=== PATIENT | male | born 1945 | race Caucasian/White ===

== ENCOUNTER 2022-02-03 01:32 | Inpatient (IN) ==
--- NOTE | 2022-02-03 01:41 | Emergency Department Note ---
History of Present Illness General Chief complaint: Hip Pain Stated complaint: FALL W/ HIP PAIN Time Seen by Provider: 02/03/22 01:33 History of Present Illness This 76-year-old presents to the ER complaining of right hip pain after falling in the shower on accident Location: Right hip Quality: Painful Severity: Moderate Duration: Tonight Timing: Tonight Context: Patient was concerned and came in Modifying factors: better with rest; worse with movement Patient denies chest pain, dyspnea, back pain, abdominal pain, numbness, tingling, localized weakness, head injury, neck pain, prior fracture to this area. Home Medications Medication Instructions Recorded Confirmed Type aspirin 81 mg tablet,delayed 81 mg PO DAILY 08/07/19 02/03/22 History release atorvastatin 20 mg tablet 20 mg PO DAILY 08/07/19 02/03/22 History canagliflozin 300 mg tablet 300 mg PO DAILY 08/07/19 02/03/22 History (Invokana) docusate sodium 100 mg capsule 100 mg PO BID 08/07/19 02/03/22 History (Stool Softener) lisinopril 20 2 tab PO DAILY 08/07/19 02/03/22 History mg-hydrochlorothiazide 25 mg tablet metformin 1,000 mg tablet 1,000 mg PO BID 08/07/19 02/03/22 History multivitamin 1 tab PO DAILY 08/07/19 02/03/22 History omega 4-ebx-dcn-fish oil 1,000 mg 2 cap PO DAILY 08/07/19 02/03/22 History (120 mg-180 mg) capsule (Fish Oil) digoxin 250 mcg (0.25 mg) tablet 250 mcg PO DAILY 02/03/22 02/03/22 History glipizide 10 mg tablet, extended 10 mg PO AMHS 02/03/22 02/03/22 History release 24 hr Allergies Allergy/AdvReac Type Severity Reaction Status Date / Time No Known Allergies Allergy Unknown Verified 02/03/22 02:00 Past Med/Surg History Medical History (Updated 02/03/22 @ 02:53 by Ashlyn Martin PA-C) Diabetes Heart disease HTN (hypertension) Surgical History No pertinent past surgical history Family History Other Cancer Lung disease Social History Smoking Status: Never smoker Preferred Language: Korean Feels Safe at Home: Yes Review of Systems A total of 10 systems reviewed and were otherwise negative Physical Exam Vital Signs Vital Signs - 24 hr 02/03/22 01:38 Temperature 36.5 C Temperature Source Oral Pulse Rate 86 Respiratory Rate 16 Respiratory Effort / Characteristics Non-Labored Spontaneous Respiratory Depth Normal Blood Pressure 173/109 H Blood Pressure Mean 130 Pulse Oximetry 96 Oxygen Delivery Method Room Air Sepsis Recent Fever Within 48 Hours No Sepsis New/Unexplained Change in Mental Status N/A Sepsis Action Taken by Nursing No Action Required PHYSICAL EXAM: VITALS: Vitals are noted on the nurse's note and reviewed by myself. Vital signs stable. GENERAL: Pleasant gentleman, in no acute distress, nondiaphoretic, well- developed well-nourished. SKIN: The skin was without obvious lacerations or abrasions. Capillary reflex less than 2 seconds. HEAD: Normocephalic atraumatic. EARS: External auditory canals clear, EYES: Pupils equal round and reactive to light and accommodation. Conjunctivae without injection, sclerae without icterus. Extraocular movements intact. NOSE: Patent, turbinates without inflammation or discharge. MOUTH: Mucous membranes moist. Pharynx without erythema or exudate. Uvula midline. Airway patent. Tongue does not deviate. NECK: Supple without nuchal rigidity. Cervical spine is nontender. Full range of motion of the neck without tenderness. No JVD. HEART: Regular rate and rhythm LUNGS: Clear to auscultation bilaterally without wheezes, rales or rhonchi. No dullness to percussion. No retractions or accessory muscle use. No chest wall tenderness. ABDOMEN: Positive bowel sounds x 4. Normal tympanic percussion. Soft, nontender, without masses or organomegaly. No guarding or rebound tenderness. MUSCULOSKELETAL: No tenderness of the thoracic or lumbar spine. Right hip tender to palpation. Increased pain with range of motion. Pedal pulses +2 equal and present bilaterally. Full range of motion without tenderness to palpation in all other extremities. NEURO: Patient was alert and oriented to person place and time. Normal sensation to light and sharp touch. No focal neurological deficits. Medical Decision Making Medical Records Attestation: I reviewed the patient's medical records. Home Medications Current Medication List: was personally reviewed by me Laboratory Data Result diagrams: 02/03/22 02:00 02/03/22 02:00 Lab Results 02/03/22 02/03/22 02/03/22 Range/Units 02:00 02:00 02:00 WBC 16.74 H (4.8-10.8) K/ul RBC 4.94 (4.63-6.08) M/uL Hgb 15.0 (14.0-18.0) g/dl Hct 42.9 (40.1-51.0) % MCV 86.8 (80.0-100.0) fL MCH 30.4 (25.0-34.0) pg MCHC 35.0 (32.0-36.0) g/dL RDW Std Deviation 39.8 (36.4-46.3) fL RDW Coeff of Aleyda 12.6 (11.5-14.5) % Plt Count 222 (130-400) K/uL MPV 10.7 (9.4-12.4) fL Immature Gran % (Auto) 0.4 % Neut % (Auto) 86.8 % Lymph % (Auto) 7.0 % [place] % (Auto) 5.4 % Eos % (Auto) 0.2 % Baso % (Auto) 0.2 % Neut # (Auto) 14.52 H (1.4-6.5) K/uL Lymph # (Auto) 1.17 L (1.2-3.4) K/uL [place] # (Auto) 0.91 H (0.24-0.82) K/uL Eos # (Auto) 0.03 (0-0.50) K/uL Baso # (Auto) 0.04 (0-0.2) K/uL Immature Gran # (Auto) 0.07 H (0.00-0.02) K/uL PT 11.1 (9.0-12.0) Seconds INR 1.0 (0.9-1.1) APTT 23.4 (21.0-31.0) Seconds PTT Ratio 0.9 SARS-CoV-2, RNA, NAAT NEGATIVE (NEGATIVE) Imaging Data Attestation: I personally reviewed and interpreted this imaging study as follows: MDM Narrative Prior records reviewed and summarized above. Triage Nursing notes reviewed. Additional history obtained from nursing. The patient's history was concerning for fall with hip pain Differential diagnosis: Etiologies such as fracture, dislocation, neurovascular compromise, compartment syndrome, soft tissue injury, as well as others were entertained. Physical examination: Consistent with an isolated hip injury. ER treatment provided: IV lock Patient has declined pain medicine NPO Bedrest On reassessment the patient felt better. Diagnostics interpreted by me: ECG: Ordered for preop EKG: Normal sinus, normal intervals, no acute ST-T wave changes. Impression normal sinus rhythm interpreted by myself I think arrhythmia is unlikely. EKG shows normal sinus rhythm with no interval abnormalities such as QT prolongation or WPW. There are no findings to suggest Brugada syndrome. Cardiac monitoring in the emergency department reveals no tachycardic or bradycardic dysrhythmia. Hypertrophic cardiomyopathy was considered but there are no clear historical elements pointing toward this. EKG is not suggestive. The QRS voltage is not extremely large and there are no suggestive Q waves. The labs revealed stable H&H Imaging studies: Hip fracture concerning for intertrochanteric hip fracture per my interpretation Chest x-ray with no consolidation, pneumothorax or free air per my interpretation The patient has an isolated hip fracture and will need admission to the hospital. Consultation: A consultation was placed with hospitalist. The case was discussed and diagnostics were reviewed. The patient was evaluated in the ER for further treatment. The chart was completed utilizing [employer] Speech voice recognition software. Grammatical errors, random word insertions, pronoun errors, and incomplete sentences are an occassional consequence of this system due to software limitations, ambient noise, and hardware issues. Any formal questions or concerns about the content, text, or information contained within the body of this dictation should be directly addressed to the physician ambulance assistant for clarification. Impression & Plan Closed fracture of right hip Discharge Plan Visit Data Chief Complaint: Hip Pain Stated Complaint: FALL W/ HIP PAIN ED Provider: Diana Wolf ED Midlevel Provider: Ashlyn Martin Discharge Problem: Closed fracture of right hip Patient Disposition: Admitted As Inpatient Condition: Good Forms Stand Alone Forms: My [facility] Prescriptions Prescriptions: No Action atorvastatin 20 mg tablet 20 mg PO DAILY aspirin 81 mg Tablet,Delayed Release (Dr/Ec) 81 mg PO DAILY metformin 1,000 mg tablet 1,000 mg PO BID lisinopril-hydrochlorothiazide 20-25 mg tablet 2 tab PO DAILY Invokana 300 mg tablet 300 mg PO DAILY multivitamin Tablet 1 tab PO DAILY docusate sodium [Stool Softener] 100 mg Capsule 100 mg PO BID omega 6-qel-xmf-fish oil [Fish Oil] 1,000 mg (120 mg-180 mg) Capsule 2 cap PO DAILY digoxin 250 mcg (0.25 mg) tablet 250 mcg PO DAILY glipizide 10 mg tablet extended release 24hr 10 mg PO AMHS Referrals Referrals: Jesse Real DO [Primary Care Provider] -
[2022-02-03] MEDS ORDERED: lisinopril 40 MG TAB PO STA (02:00)
[2022-02-03 02:09] LABS: Basophils # (auto) 0.04 K/uL (0-0.2); Basophils % (auto) 0.2 %; Eosinophils # (auto) 0.03 K/uL (0-0.50); Eosinophils % (auto) 0.2 %; Hematocrit (blood only) 42.9 % (40.1-51.0); Immature Granulocytes # (auto) 0.07 K/uL (0.00-0.02); Immature Granulocytes % (auto) 0.4 %; Lymphocytes # (auto) 1.17 K/uL (1.2-3.4); Mean Corpuscular Hemoglobin 30.4 pg (25.0-34.0); Mean Corpuscular Volume 86.8 fL (80.0-100.0); Mean Platelet Volume 10.7 fL (9.4-12.4); Monocytes # (auto) 0.91 K/uL (0.24-0.82); Monocytes % (auto) 5.4 %; Neutrophils # (auto) 14.52 K/uL (1.4-6.5); Neutrophils % (auto) 86.8 %; Platelet Count 222 K/uL (130-400); RDW Coefficient of Variation 12.6 % (11.5-14.5); RDW Standard Deviation 39.8 fL (36.4-46.3); Red Blood Count 4.94 M/uL (4.63-6.08); White Blood Count 16.74 K/ul (4.8-10.8)
[2022-02-03 02:24] LABS: Partial Thromboplastin Ratio 0.9; Partial Thromboplastin Time 23.4 Seconds (21.0-31.0); Prothrombin Time 11.1 Seconds (9.0-12.0)
--- NOTE | 2022-02-03 02:36 | History & Physical Report ---
Date of Service February 03, 2022 Assessment & Plan (1) Asymptomatic hypertensive urgency: Plan: Secondary to traumatic right hip fracture secondary to mechanical fall ARF secondary to traumatic rhabdomyolysis PSVT/PAF, patient NSR hx PVD hyperlipidemia on statin Rx DM2 on oral medications, suboptimal control as of recent hemoglobin A1c of 8.14 December 2021 Systolic murmur past tobacco abuse Medical telemetry Analgesia Amlodipine while lisinopril/home diuretic are on hold due to kidney dysfunction monitor creatinine/CPK response to IVF Appropriate to hold statin due to CPK elevation TTE RE systolic murmur Orthopedics consult Re: Right hip fracture [Patient has been seen by [facility] in the past but is requesting admitting service to contact his PCP (Dr. Jesse Real) in a.m. for specialist recommendations.] N.p.o. until patient seen by Orthopedics in a.m. Basal insulin adjusted for n.p.o. status, ISS BG goal 1 10-1 40 DVT prophylaxis with SCDs Re: Possible surgery Full code ADDENDUM : Received call back from patient's PCP (Dr. Real) who is agreeable to [facility] consult for evaluation of patient's right hip fracture. History of Present Illness Chief Complaint: Right hip pain, fall Primary Care Provider: Jesse Real, History obtained from patient and records. Medical history significant for PSVT/PAF, PVD, hypertension, hyperlipidemia, DM2 on oral medications, past tobacco abuse. Last confinement 2008 for lower extremity cellulitis. Patient slipped in the shower last night leading to a fall. Patient felt something pop on his right hip. Achy right hip pain, patient unable to get up. No head trauma, no LOC, no chest pain, no SOB. Patient yelling for for about an hour before family heard him. EMS alerted. Patient brought to the ER for evaluation. 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 Baseline Functionality : Still able to do housework without rest/exertional chest pain, S OB prior to injury Allergies Allergy/AdvReac Type Severity Reaction Status Date / Time No Known Allergies Allergy Unknown Verified 02/03/22 02:00 Home Medications Medication Instructions Recorded Confirmed Type aspirin 81 mg tablet,delayed 81 mg PO DAILY 08/07/19 02/03/22 History release atorvastatin 20 mg tablet 20 mg PO DAILY 08/07/19 02/03/22 History canagliflozin 300 mg tablet 300 mg PO DAILY 08/07/19 02/03/22 History (Invokana) docusate sodium 100 mg capsule 100 mg PO BID 08/07/19 02/03/22 History (Stool Softener) lisinopril 20 2 tab PO DAILY 08/07/19 02/03/22 History mg-hydrochlorothiazide 25 mg tablet metformin 1,000 mg tablet 1,000 mg PO BID 08/07/19 02/03/22 History multivitamin 1 tab PO DAILY 08/07/19 02/03/22 History omega 4-hko-ntn-fish oil 1,000 mg 2 cap PO DAILY 08/07/19 02/03/22 History (120 mg-180 mg) capsule (Fish Oil) digoxin 250 mcg (0.25 mg) tablet 250 mcg PO DAILY 02/03/22 02/03/22 History glipizide 10 mg tablet, extended 10 mg PO AMHS 02/03/22 02/03/22 History release 24 hr Past Med/Surg History Medical History (Updated 02/03/22 @ 05:02 by Charli Bañuelos MD) Diabetes Heart disease HTN (hypertension) Surgical History No pertinent past surgical history Family History Other Cancer Lung disease Social History Smoking Status: Never smoker Hx Alcohol Use: No Hx Substance Use: No Preferred Language: [place]ankan Communication Ability: Effective Duct Layer Helper Required: No Beliefs That Will Affect Care: None Current Living Situation: Spouse Feels Safe at Home: Yes Safety Concerns: Feels Safe At This Time Review of Systems Review of Systems: As per HPI, all other systems reviewed and negative Physical Exam Physical Exam: GENERAL: Comfortable, pleasant, no respiratory distress SKIN: Normal color, warm HEENT: Alopecia, [place] palpebral conjunctivae, no ptosis, dry buccal mucosa NECK : Supple, no tenderness CHEST : CTA, no tenderness HEART : RRR, systolic murmur best heard over left sternal border ABDOMEN: Some distention, nontender EXTREMITIES : No LE swelling, right hip tenderness, no other conspicuous deformities noted NEUROLOGIC : Coherent, no facial asymmetry, gait and stance not assessed Results & Data Results & Data ([facility]) Vital Signs (Past 12 Hours) Vital Signs Temp Pulse Resp BP Pulse Ox O2 Del Method 02/03/22 01:38 36.5 C 86 16 173/109 H 96 Room Air Laboratory Results Laboratory Results WBC 16.74 K/ul (4.8-10.8) H 02/03/22 02:00 RBC 4.94 M/uL (4.63-6.08) 02/03/22 02:00 Hgb 15.0 g/dl (14.0-18.0) 02/03/22 02:00 Hct 42.9 % (40.1-51.0) 02/03/22 02:00 MCV 86.8 fL (80.0-100.0) 02/03/22 02:00 MCH 30.4 pg (25.0-34.0) 02/03/22 02:00 MCHC 35.0 g/dL (32.0-36.0) 02/03/22 02:00 RDW Std Deviation 39.8 fL (36.4-46.3) 02/03/22 02:00 RDW Coeff of Aleyda 12.6 % (11.5-14.5) 02/03/22 02:00 Plt Count 222 K/uL (130-400) 02/03/22 02:00 MPV 10.7 fL (9.4-12.4) 02/03/22 02:00 Immature Gran % (Auto) 0.4 % 02/03/22 02:00 Neut % (Auto) 86.8 % 02/03/22 02:00 Lymph % (Auto) 7.0 % 02/03/22 02:00 [place] % (Auto) 5.4 % 02/03/22 02:00 Eos % (Auto) 0.2 % 02/03/22 02:00 Baso % (Auto) 0.2 % 02/03/22 02:00 Neut # (Auto) 14.52 K/uL (1.4-6.5) H 02/03/22 02:00 Lymph # (Auto) 1.17 K/uL (1.2-3.4) L 02/03/22 02:00 [place] # (Auto) 0.91 K/uL (0.24-0.82) H 02/03/22 02:00 Eos # (Auto) 0.03 K/uL (0-0.50) 02/03/22 02:00 Baso # (Auto) 0.04 K/uL (0-0.2) 02/03/22 02:00 Immature Gran # (Auto) 0.07 K/uL (0.00-0.02) H 02/03/22 02:00 PT 11.1 Seconds (9.0-12.0) 02/03/22 02:00 INR 1.0 (0.9-1.1) 02/03/22 02:00 APTT 23.4 Seconds (21.0-31.0) 02/03/22 02:00 PTT Ratio 0.9 02/03/22 02:00 SARS-CoV-2, RNA, NAAT NEGATIVE (NEGATIVE) 02/03/22 02:00 Laboratory Results WBC 16.74 K/ul (4.8-10.8) H 02/03/22 02:00 RBC 4.94 M/uL (4.63-6.08) 02/03/22 02:00 Hgb 15.0 g/dl (14.0-18.0) 02/03/22 02:00 Hct 42.9 % (40.1-51.0) 02/03/22 02:00 MCV 86.8 fL (80.0-100.0) 02/03/22 02:00 MCH 30.4 pg (25.0-34.0) 02/03/22 02:00 MCHC 35.0 g/dL (32.0-36.0) 02/03/22 02:00 RDW Std Deviation 39.8 fL (36.4-46.3) 02/03/22 02:00 RDW Coeff of Aleyda 12.6 % (11.5-14.5) 02/03/22 02:00 Plt Count 222 K/uL (130-400) 02/03/22 02:00 MPV 10.7 fL (9.4-12.4) 02/03/22 02:00 Immature Gran % (Auto) 0.4 % 02/03/22 02:00 Neut % (Auto) 86.8 % 02/03/22 02:00 Lymph % (Auto) 7.0 % 02/03/22 02:00 [place] % (Auto) 5.4 % 02/03/22 02:00 Eos % (Auto) 0.2 % 02/03/22 02:00 Baso % (Auto) 0.2 % 02/03/22 02:00 Neut # (Auto) 14.52 K/uL (1.4-6.5) H 02/03/22 02:00 Lymph # (Auto) 1.17 K/uL (1.2-3.4) L 02/03/22 02:00 [place] # (Auto) 0.91 K/uL (0.24-0.82) H 02/03/22 02:00 Eos # (Auto) 0.03 K/uL (0-0.50) 02/03/22 02:00 Baso # (Auto) 0.04 K/uL (0-0.2) 02/03/22 02:00 Immature Gran # (Auto) 0.07 K/uL (0.00-0.02) H 02/03/22 02:00 PT 11.1 Seconds (9.0-12.0) 02/03/22 02:00 INR 1.0 (0.9-1.1) 02/03/22 02:00 APTT 23.4 Seconds (21.0-31.0) 02/03/22 02:00 PTT Ratio 0.9 02/03/22 02:00 Sodium 137 mmol/L (136-145) 02/03/22 02:00 Potassium 4.3 mmol/L (3.5-5.1) 02/03/22 02:00 Chloride 101 mmol/L (98-107) 02/03/22 02:00 Carbon Dioxide 24 mmol/L (21-32) 02/03/22 02:00 Anion Gap 12 (3-11) H 02/03/22 02:00 BUN 23 mg/dl (6-23) 02/03/22 02:00 Creatinine 1.48 mg/dl (0.6-1.4) H 02/03/22 02:00 Est Cr Clr Drug Dosing 52.7 ml/min 02/03/22 02:00 Est GFR ( Amer) 52.1 ml/min 02/03/22 02:00 Est GFR (Non-Af Amer) 45.0 ml/min 02/03/22 02:00 BUN/Creatinine Ratio 15.5 (10-20) 02/03/22 02:00 Glucose 312 mg/dl (70-99(Fasting)) H* 02/03/22 02:00 Calcium 9.6 mg/dl (8.5-10.1) 02/03/22 02:00 Magnesium 1.8 mg/dl (1.7-2.4) 02/03/22 02:00 Total Bilirubin 0.6 mg/dl (0.2-1.0) 02/03/22 02:00 AST 26 U/L (13-39) 02/03/22 02:00 ALT 29 U/L (7-52) 02/03/22 02:00 Alkaline Phosphatase 58 U/L (34-104) 02/03/22 02:00 Total Protein 7.2 gm/dl (6.0-8.3) 02/03/22 02:00 Albumin 4.3 gm/dl (3.4-5.0) 02/03/22 02:00 Globulin 2.9 gm/dl (2.5-4.0) 02/03/22 02:00 Albumin/Globulin Ratio 1.5 (0.9-2) 02/03/22 02:00 Urine Color Yellow 02/03/22 04:05 Urine Appearance Clear (Clear) 02/03/22 04:05 Urine pH 5.5 (4.5-7.5) 02/03/22 04:05 Ur Specific [place] 1.022 (1.000-1.030) 02/03/22 04:05 Urine Protein 1+ (Negative) H 02/03/22 04:05 Urine Glucose (UA) 3+ (Negative) H 02/03/22 04:05 Urine Ketones Trace (Negative) H 02/03/22 04:05 Urine Blood 1+ (Negative) H 02/03/22 04:05 Urine Nitrite Negative (Negative) 02/03/22 04:05 Urine Bilirubin Negative (Negative) 02/03/22 04:05 Urine Urobilinogen Negative (Negative) 02/03/22 04:05 Ur Leukocyte Esterase Negative (Negative) 02/03/22 04:05 Urine WBC (Auto) 0 /hpf (0-5) 02/03/22 04:05 Urine RBC (Auto) 0-4 /hpf (0-4) 02/03/22 04:05 U Hyaline Cast (Auto) 1-5 /lpf (0-5) 02/03/22 04:05 U Epithel Cells (Auto) 5-10 /lpf (0-5) H 02/03/22 04:05 Urine Bacteria (Auto) Negative (Negative) 02/03/22 04:05 Digoxin 0.9 ng/ml (0.8-2.0) 02/03/22 02:00 SARS-CoV-2, RNA, NAAT NEGATIVE (NEGATIVE) 02/03/22 02:00 Blood Type A Positive 02/03/22 02:56 Antibody Screen NEGATIVE 02/03/22 02:56 Diagnostic Findings Pelvis x-ray as per my interpretation displaced right femoral neck fracture Chest x-ray as per my interpretation: Elevated left hemidiaphragm, gastric bubble, no infiltrate EKG as per my interpretation : Rate 85, NSR, normal axis, low voltage
[2022-02-03] MEDS ORDERED: MoRPHine SULFATE 4 MG/ML 1 ML CARP\\VIAL IV PRN (02:41)
[2022-02-03] MEDS ORDERED: PROMETHAZINE HCL 12.5 MG in SODIUM CHLORIDE 0.9% 50 ML IV PRN (02:41)
[2022-02-03 03:06] LABS: Albumin Globulin Ratio 1.5 (0.9-2); Albumin Level 4.3 gm/dl (3.4-5.0); BUN Creatinine Ratio 15.5 (10-20); Bilirubin,Total 0.6 mg/dl (0.2-1.0); Calcium 9.6 mg/dl (8.5-10.1); Creatinine Clr Calc Pharmacy 52.7 ml/min; Est GFR (African American) 52.1 ml/min; Globulin 2.9 gm/dl (2.5-4.0); Potassium 4.3 mmol/L (3.5-5.1); Total Protein 7.2 gm/dl (6.0-8.3)
[2022-02-03 03:21] LABS: Magnesium 1.8 mg/dl (1.7-2.4)
[2022-02-03 04:24] LABS: Appearance Urine Clear (Clear); Bacteria Urine Automated Negative (Negative); Bilirubin Urine Negative (Negative); Blood Urine 1+ (Negative); Color Urine Yellow; Glucose Urine UA 3+ (Negative); Ketones Urine Trace (Negative); Leukocyte Esterase Urine Negative (Negative); Nitrite Urine Negative (Negative); Protein Urine 1+ (Negative); RBC Urine Automated 0-4 /hpf (0-4); Specific Gravity Urine 1.022 (1.000-1.030); Urobilinogen Urine Negative (Negative); WBC Urine Automated 0 /hpf (0-5); pH Urine 5.5 (4.5-7.5)
[2022-02-03] MEDS ORDERED: LANTUS PER UNIT CHARGE SQ STA ×2 (04:39→19:12)
[2022-02-03] MEDS ORDERED: SODIUM CHLORIDE 0.9% 1000ML 1,000 ML IV ONE ×2 (04:42→06:32)
[2022-02-03] MEDS ORDERED: CARBOHYDRATES FOR HYPOGLYCEMIA PO PRN (04:58)
[2022-02-03] MEDS ORDERED: GLUCAGON FOR INJ 1 MG VIAL SQ PRN (04:58)
[2022-02-03] MEDS ORDERED: GLUCOSE 10 TAB/TUBE PO PRN (04:58)
[2022-02-03] MEDS ORDERED: GLUCOSE 40% GEL 15 GM TUBE PO PRN (04:58)
[2022-02-03] MEDS ORDERED: DEXTROSE 50% 50 ML SYRINGE IV PRN (04:58)
[2022-02-03] MEDS: INSULIN ASPART PER UNIT SC SCH ×3 (05:29→17:24)
[2022-02-03] MEDS ORDERED: NALOXONE HCL 0.4 MG/1 ML VIAL/CARP IV PRN (06:32)
--- NOTE | 2022-02-03 07:03 | XRay Report ---
XR chest 1V portable CLINICAL HISTORY: Preoperative evaluation. COMPARISON STUDY: Chest radiograph July 01, 2008. FINDINGS: Elevation of the left hemidiaphragm with gastric distention is similar to prior chest radio graph. A few calcified granulomas within the right lung are present. Lung volumes are normal. Lungs a re clear. There is no pneumothorax or pleural effusion. Cardiac size is normal. Mediastinal contours are normal. There is no evidence for pulmonary edema. IMPRESSION: No acute cardiopulmonary findings. No change in appearance of the chest. ACT 112: Negative or not required by law. Electronically signed by: Julio Navas M.D. 02/03/2022 7:02 AM
--- NOTE | 2022-02-03 07:22 | XRay Report ---
XR hip RT 2V w pelvis CLINICAL HISTORY: fall, right hip pain COMPARISON: None FINDINGS: There is an acute displaced right femoral neck fracture. No acute pelvic or left hip fract ure is present. There is moderate osteoarthritis of the hips, greater on the right. Extensive vascula r calcification is incidentally noted. IMPRESSION: Acute displaced right femoral neck fracture. ACT 112: Negative or not required by law. Electronically signed by: Julio Navas M.D. 02/03/2022 7:20 AM
[2022-02-03] MEDS: DOCUSATE SODIUM 100 MG CAP PO SCH ×2 (08:13→20:29)
[2022-02-03] MEDS: MULTIVITAMIN TAB PO SCH (08:13)
[2022-02-03] MEDS: amLODIPine BESYLATE 5 MG TAB PO SCH (08:14)
[2022-02-03] MEDS: ASPIRIN 81 MG ECTAB PO SCH (08:15)
[2022-02-03 08:38] LABS: BUN Creatinine Ratio 19.1 (10-20); Calcium 9.6 mg/dl (8.5-10.1); Creatinine Clr Calc Pharmacy 67.8 ml/min; Est GFR (African American) 70.7 ml/min; Potassium 3.7 mmol/L (3.5-5.1)
[2022-02-03] MEDS ORDERED: ATORVASTATIN 20 MG TAB PO SCH (09:00)
[2022-02-03] MEDS: HYDROmorphone INJ 0.5 MG/0.5 ML SYR IV PRN ×2 (09:55→15:32)
--- NOTE | 2022-02-03 12:19 | Orthopedic Consultation ---
Date of Consultation February 03, 2022 Assessment & Plan (1) Closed fracture of right hip: Displaced right femoral neck fracture. Patient is a community ambulator. He states at times he does use a cane. He denies much in the way of pain in the right hip in the past. Patient will require a bipolar hemiarthroplasty versus total hip arthroplasty to be determined by attending surgeon. Case is in the process of being discussed with [facility] physicians. Continue the patient's n.p.o. status for now in case surgery can be done today. Otherwise patient will be added onto the surgical schedule tomorrow for definitive treatment. I will discuss the case with [facility] service. History of Present Illness Reason for Consultation: Right Hip Fracture Attending Physician: Petey Alcantara MD History of Present Illness Patient is a 76-year-old male with past medical history of PSVT/PAF, PVD, hypertension, hyperlipidemia, DM2 on oral medications, past tobacco abuse. Patient states that he was showering last night. He ended up slipping in the shower and fell onto the shower floor. He had immediate pain in his right hip and groin. He had difficulty trying to ambulate. He states that it took his 45 minutes to hear him yelling for help when she was able to summon her son and also an ambulance. Patient was brought to the emergency room here at [facility]. He was seen by the staff and x-rays were taken. It was found that he had a right displaced femoral neck fracture He was admitted by the [facility] service and we have been asked to take care of his hip fracture. Currently he is awake and alert and in no acute distress. He has no other complaints at this time other than right hip pain. He denies hitting his head during the fall. He denies loss of consciousness. There was no shortness of breath, chest pain, or lightheadedness prior to or after the fall. Allergies Allergy/AdvReac Type Severity Reaction Status Date / Time No Known Allergies Allergy Unknown Verified 02/03/22 02:00 Home Medications Medication Instructions Recorded Confirmed Type aspirin 81 mg tablet,delayed 81 mg PO DAILY 08/07/19 02/03/22 History release atorvastatin 20 mg tablet 20 mg PO DAILY 08/07/19 02/03/22 History canagliflozin 300 mg tablet 300 mg PO DAILY 08/07/19 02/03/22 History (Invokana) docusate sodium 100 mg capsule 100 mg PO BID 08/07/19 02/03/22 History (Stool Softener) lisinopril 20 2 tab PO DAILY 08/07/19 02/03/22 History mg-hydrochlorothiazide 25 mg tablet metformin 1,000 mg tablet 1,000 mg PO BID 08/07/19 02/03/22 History multivitamin 1 tab PO DAILY 08/07/19 02/03/22 History omega 4-bjn-nkw-fish oil 1,000 mg 2 cap PO DAILY 08/07/19 02/03/22 History (120 mg-180 mg) capsule (Fish Oil) digoxin 250 mcg (0.25 mg) tablet 250 mcg PO DAILY 02/03/22 02/03/22 History glipizide 10 mg tablet, extended 10 mg PO AMHS 02/03/22 02/03/22 History release 24 hr Patient History Medical History (Updated 02/03/22 @ 15:55 by Luis Stock MD) Diabetes Heart disease HTN (hypertension) Surgical History No pertinent past surgical history Family History Other Cancer Lung disease Social History Smoking Status: Never smoker Hx Alcohol Use: No Hx Substance Use: No Preferred Language: Mexican Communication Ability: Effective Waste Salvager Required: No Beliefs That Will Affect Care: None Current Living Situation: Spouse Feels Safe at Home: Yes Safety Concerns: Feels Safe At This Time Physical Exam Physical Exam: Patient is a 76-year-old white male who appears his stated age. Alert and oriented x3. No acute distress. Pleasant and cooperative. On examination of his right lower extremity, the extremity is shortened and externally rotated compared to the left. No attempts were made to do range of motion of the right hip Hayden to fracture. Right knee is nontender on palpation and there is no overt swelling. He has good range of motion of his right ankle and toes. Left lower extremity is unaffected at this time and he is able to take the left hip, knee and ankle through range of motion without difficulty. Upper extremities are unaffected at this time and he is nontender at the shoulders, elbows and wrists. Range of motion is within normal limits. He denies any cervical, thoracic, low back pain at this time. There is no gross motor or sensory loss seen at this time. Distal pulses are equal bilaterally of the upper and lower extremities. Results & Data ([facility]) Vital Signs (Past 12 Hours) Vital Signs Temp Pulse Pulse Resp BP BP Pulse Ox 02/03/22 11:15 94 H 20 155/78 H 94 02/03/22 11:15 02/03/22 10:00 95 H 22 02/03/22 09:56 94 H 23 167/73 H 97 02/03/22 09:56 91 H 21 02/03/22 09:00 89 23 02/03/22 08:30 84 24 95 02/03/22 08:17 100 H 20 132/83 100 02/03/22 07:54 95 H 22 96 02/03/22 06:00 101 H 20 172/84 H 94 02/03/22 04:18 96 H 18 155/80 H 96 02/03/22 02:58 92 H 19 168/77 H 95 02/03/22 02:52 36.9 C 19 98 02/03/22 01:38 36.5 C 86 16 173/109 H 96 Pulse Ox O2 Del Method O2 Del Method 02/03/22 11:15 Room Air 02/03/22 11:15 94 Room Air 02/03/22 10:00 02/03/22 09:56 02/03/22 09:56 02/03/22 09:00 02/03/22 08:30 02/03/22 08:17 Room Air 02/03/22 07:54 02/03/22 06:00 02/03/22 04:18 Room Air 02/03/22 02:58 Room Air 02/03/22 02:52 Room Air 02/03/22 01:38 Room Air Diagnostic Findings Patient:VICTOR MANUEL HENDERSON Admit Date:02/03/22 MR#:[id number] Address1:[address] Acct ID:[id number] Address2: Date:1945 [facility] Zip:[place] [address] Age:76 Location:[facility] Sex:M Room/Bed:[facility] 1-12 Att Phy:Raymond Nieto MD Diagnosis:HTN URG, RT HIP FX Rosenda Phy:Jesse Real DO Service Date:02/03/22 Fam Phy: Interpreting Phy:Julio Navas MDAdmit Phy:Charli Bañuelos MD Ordering Phy:Ashlyn Martin PA-C cc: ~ XR hip RT 2V w pelvis CLINICAL HISTORY: fall, right hip pain COMPARISON: None FINDINGS: There is an acute displaced right femoral neck fracture. No acute pelvic or left hip fracture is present. There is moderate osteoarthritis of the hips, greater on the right. Extensive vascular calcification is incidentally noted. IMPRESSION: Acute displaced right femoral neck fracture. (1) Closed fracture of right hip Encounter type: initial encounter Qualified Code(s): S72.001A - Fracture of unspecified part of neck of right femur, initial encounter for closed fracture
--- NOTE | 2022-02-03 13:57 | Hospitalist Progress Note ---
Date of Service February 03, 2022 Assessment & Plan (1) Closed fracture of right hip: Plan 76-year-old male with PMH of PSVT/PAF, PVD, HTN, HLD, DM2, past tobacco abuse who presented to the ED 02/03 after mechanical fall while shower and inflicted right hip injury, denies loss of consciousness/head trauma/chest pain/shortness of breath/palpitations/dizziness/seizure-like activity/involuntary loss of bowel or bladder movement. He is being managed for the following: Hypertensive urgency: Likely secondary to traumatic right hip fracture [see below], amlodipine while lisinopril/home diuretic on hold [see below]. Blood pressure fairly better today. Mechanical fall Right hip fracture Patient came in with fall [see above] Admitting hip x-ray with acute displaced right femoral neck fracture Admitting CXR with no acute findings. Patient denies any stroke/MA/stents, uses cane occasionally, reports being able to climb 2-3 flights of stairs without chest pain or shortness of breath. Class II cardiovascular risk for needed Rt hip repair. Pain control, n.p.o. midnight, likely surgical repair tomorrow. Postoperative PT/OT/DVT prophylaxis per primary team Will continue to monitor. ARF: Admitting creatinine of 1.48, resolved, lisinopril HCTZ was held earlier and amlodipine was initiated, continue with the same for the time being, switch back to lisinopril HCTZ postoperatively. Caution with blood pressure medication during perioperative period. Minimal CPK elevation: 240 at admission, will follow CPK in a.m., statin on hold, continue with same for now, resume once CPK is deemed to be stable or downtrending. Other chronic medical conditions: History of PSVT/PAF, PVD, HLD, DM2, systolic murmur, past tobacco abuse --->> continue with/resume home meds as and when able. Sliding scale insulin. We will continue with telemetry perioperatively. DVT prophylaxis with SCDs Re: Possible surgery Full code Admission and Anticipated Discharge Date Admission Date: February 03, 2022 Subjective Patient seen and examined at bedside as a follow-up of hypertensive urgency and traumatic right hip fracture secondary to mechanical fall. Patient was lying in bed, on room air, NAD, reports pain under control, denies any new acute events overnight, patient was n.p.o. for Ortho to eval and make decision, later on decided to operate on him likely tomorrow, his diet resumed, n.p.o. from midnight until Ortho evaluation tomorrow, patient denies any headache/fever/chills/chest pain/palpitations/shortness of breath/cough/sore throat/belly pain/acute changes in his bowel or bladder habits/other review of symptoms. Physical Exam Physical Exam: GENERAL: Alert and oriented x3. NAD, on RA. HEENT: No pallor, no icterus. Pupils equal, round and reactive to light. Oral mucosa moist. NECK: No JVD, no neck masses. HEART: S1 and S2 heard. Regular rate and rhythm. No murmur, no gallop. RESPIRATORY SYSTEM: Normal AP diameter. No accessory muscle use. No wheezing, no crackles. ABDOMEN: Soft, bowel sounds present, nontender, no distention. CENTRAL NERVOUS SYSTEM: No facial droop. Speech is clear. Obeys simple commands. Moves extremities. EXTREMITIES: No edema, no erythema seen. Distal NV status nl x RLE. Non tender and no bruise x Rt hip. Results & Data Results & Data ([facility]) Vital Signs (Past 12 Hours) Vital Signs Temp Pulse Pulse Resp BP BP Pulse Ox 02/03/22 13:06 37.2 C 69 16 134/71 94 02/03/22 11:15 94 H 20 155/78 H 94 02/03/22 11:15 02/03/22 10:00 95 H 22 02/03/22 09:56 94 H 23 167/73 H 97 02/03/22 09:56 91 H 21 02/03/22 09:00 89 23 02/03/22 08:30 84 24 95 02/03/22 08:17 100 H 20 132/83 100 02/03/22 07:54 95 H 22 96 02/03/22 06:00 101 H 20 172/84 H 94 02/03/22 04:18 96 H 18 155/80 H 96 02/03/22 02:58 92 H 19 168/77 H 95 02/03/22 02:52 36.9 C 19 98 Pulse Ox O2 Del Method O2 Del Method 02/03/22 13:06 Room Air 02/03/22 11:15 Room Air 02/03/22 11:15 94 Room Air 02/03/22 10:00 02/03/22 09:56 02/03/22 09:56 02/03/22 09:00 02/03/22 08:30 02/03/22 08:17 Room Air 02/03/22 07:54 02/03/22 06:00 02/03/22 04:18 Room Air 02/03/22 02:58 Room Air 02/03/22 02:52 Room Air (1) Closed fracture of right hip Encounter type: initial encounter Qualified Code(s): S72.001A - Fracture of unspecified part of neck of right femur, initial encounter for closed fracture
--- NOTE | 2022-02-03 15:55 | Anesthesiology Consultation ---
Date of Service February 03, 2022 Assessment & Plan (1) Encounter for pre-operative examination: Chart Review Chart Review: Acceptable Risk for Surgery and Patient NOT seen in Pre Admission Testing Consults Requested none History Surgery Operation Date: 02/04/22 07:00 Proposed Procedures p Right Bipolar Hemiarthroplasty - Ricky Jones DO Height/Weight Height: 6 ft 2 in Weight: 99.5 kg Allergies Allergy/AdvReac Type Severity Reaction Status Date / Time No Known Allergies Allergy Unknown Verified 02/03/22 02:00 Medications Home Medications Medication Instructions Recorded Confirmed Last Taken aspirin 81 mg tablet,delayed 81 mg PO DAILY 08/07/19 02/03/22 02/02/22 release atorvastatin 20 mg tablet 20 mg PO DAILY 08/07/19 02/03/22 02/02/22 canagliflozin 300 mg tablet 300 mg PO DAILY 08/07/19 02/03/22 02/02/22 (Invokana) docusate sodium 100 mg capsule 100 mg PO BID 08/07/19 02/03/22 02/02/22 (Stool Softener) lisinopril 20 2 tab PO DAILY 08/07/19 02/03/22 02/02/22 mg-hydrochlorothiazide 25 mg tablet metformin 1,000 mg tablet 1,000 mg PO BID 08/07/19 02/03/22 02/02/22 multivitamin 1 tab PO DAILY 08/07/19 02/03/22 02/02/22 omega 4-wwl-adi-fish oil 1,000 mg 2 cap PO DAILY 08/07/19 02/03/22 02/02/22 (120 mg-180 mg) capsule (Fish Oil) digoxin 250 mcg (0.25 mg) tablet 250 mcg PO DAILY 02/03/22 02/03/22 02/02/22 glipizide 10 mg tablet, extended 10 mg PO AMHS 02/03/22 02/03/22 02/02/22 release 24 hr Active Medications Generic Name Dose Route Start Last Admin Trade Name Freq PRN Reason Stop Dose Admin Amlodipine Besylate 2.5 mg 02/03/22 06:55 02/03/22 08:14 Amlodipine Besylate 5 Mg Tab PO 03/05/22 06:54 2.5 mg QAM RADHA Administration Aspirin 81 mg 02/03/22 09:00 02/03/22 08:15 Aspirin 81 Mg Ectab PO 03/05/22 08:59 81 mg DAILY RADHA Administration Docusate Sodium 100 mg 02/03/22 09:00 02/03/22 08:13 Docusate Sodium 100 Mg Cap PO 03/05/22 08:59 100 mg BID RADHA Administration Hydromorphone HCl 0.5 mg 02/03/22 04:58 02/03/22 15:32 Hydromorphone Inj 0.5 Mg/0.5 Ml Syr IV 02/17/22 04:57 0.5 mg Q3H PRN Administration Pain Sodium Chloride 1,000 mls @ 75 mls/hr 02/03/22 04:42 02/03/22 05:16 Nss 1000ml IV 02/03/22 18:01 75 mls/hr .[id number] ONE Administration Insulin Aspart 0 units 02/03/22 05:00 02/03/22 13:15 Insulin Aspart Per Unit SC 03/05/22 04:59 5 units Q6 RADHA Administration Multivitamins 1 tab 02/03/22 09:00 02/03/22 08:13 Multivitamin Tab PO 03/05/22 08:59 1 tab DAILY RADHA Administration Past Medical History Medical History (Updated 02/03/22 @ 15:55 by Luis Stock MD) Diabetes Heart disease HTN (hypertension) Past Family History Family History Other Cancer Lung disease Past Surgical History Surgical History No pertinent past surgical history Social History Smoking Status: Never smoker Hx Alcohol Use: No Hx Substance Use: No Physical Exam Vital Signs Last Vital Signs Temp 37.2 C 02/03/22 13:06 Pulse 87 02/03/22 14:26 Resp 18 02/03/22 14:26 BP 136/74 02/03/22 14:26 Pulse Ox 94 02/03/22 14:27 O2 Del Method 02/03/22 14:27 Testing Laboratory Results 02/03/22 02:00 02/03/22 07:56 PT 11.1 Seconds (9.0-12.0) 02/03/22 02:00 INR 1.0 (0.9-1.1) 02/03/22 02:00 APTT 23.4 Seconds (21.0-31.0) 02/03/22 02:00 Urine Color Yellow 02/03/22 04:05 Urine Appearance Clear (Clear) 02/03/22 04:05 Urine pH 5.5 (4.5-7.5) 02/03/22 04:05 Ur Specific [place] 1.022 (1.000-1.030) 02/03/22 04:05 Urine Protein 1+ (Negative) H 02/03/22 04:05 Urine Glucose (UA) 3+ (Negative) H 02/03/22 04:05 Urine Ketones Trace (Negative) H 02/03/22 04:05 Urine Nitrite Negative (Negative) 02/03/22 04:05 Ur Leukocyte Esterase Negative (Negative) 02/03/22 04:05 Urine WBC (Auto) 0 /hpf (0-5) 02/03/22 04:05 Urine RBC (Auto) 0-4 /hpf (0-4) 02/03/22 04:05 U Hyaline Cast (Auto) 1-5 /lpf (0-5) 02/03/22 04:05 U Epithel Cells (Auto) 5-10 /lpf (0-5) H 02/03/22 04:05 Urine Bacteria (Auto) Negative (Negative) 02/03/22 04:05 Blood Type A Positive 02/03/22 02:56 Antibody Screen NEGATIVE 02/03/22 02:56 02/03/22 02/03/22 02/03/22 13:09 08:00 05:22 POC Glucose 242 H 217 H 275 H Electrocardiogram Date: 02/03/22 Findings: + NSR @ (85) Chest X-Ray Date: 02/03/22 XR chest 1V portable CLINICAL HISTORY: Preoperative evaluation. COMPARISON STUDY: Chest radiograph July 01, 2008. FINDINGS: Elevation of the left hemidiaphragm with gastric distention is similar to prior chest radiograph. A few calcified granulomas within the right lung are present. Lung volumes are normal. Lungs are clear. There is no pneumothorax or pleural effusion. Cardiac size is normal. Mediastinal contours are normal. There is no evidence for pulmonary edema. IMPRESSION: No acute cardiopulmonary findings. No change in appearance of the chest. ACT 112: Negative or not required by law. Electronically signed by: Julio Navas M.D. 02/03/2022 7:02 AM Echocardiogram Date: 02/03/22 EF: 65-70 sigmoid septum
--- NOTE | 2022-02-03 16:27 | Electrocardiogram Report ---
Test Reason : Blood Pressure : / mmHG Vent. Rate : 085 BPM Atrial Rate : 085 BPM P-R Int : 208 ms QRS Dur : 084 ms QT Int : 360 ms P-R-T Axes : 060 -16 022 degrees QTc Int : 428 ms Normal sinus rhythm Normal ECG When compared with ECG of 07-AUG-2019 23:26, No significant change was found Confirmed by Cole Warren ([id number]) on 02/03/2022 4:26:46 PM Referred By: REFERRED SELF Confirmed By:Cole Warren
[2022-02-03] MEDS: DIGOXIN 0.25 MG TAB PO SCH (17:23)
[2022-02-03] MEDS: SODIUM CHLORIDE 0.9% 1000ML 1,000 ML IV SCH (17:30)
[2022-02-03] MEDS: oxyCODONE HCL IR 5 MG TAB (IMMEDIATE RELEASE) PO PRN (20:29)
[2022-02-04] MEDS: INSULIN ASPART PER UNIT SC SCH ×5 (00:25→23:32)
[2022-02-04] MEDS: ACETAMINOPHEN 325 MG TAB PO PRN (03:49)
[2022-02-04] MEDS: DOCUSATE SODIUM 100 MG CAP PO SCH ×2 (06:49→23:17)
[2022-02-04] MEDS: oxyCODONE HCL IR 5 MG TAB (IMMEDIATE RELEASE) PO PRN ×3 (06:49→23:32)
[2022-02-04] MEDS: SODIUM CHLORIDE 0.9% 1000ML 1,000 ML IV SCH (06:49)
[2022-02-04] MEDS: MULTIVITAMIN TAB PO SCH (06:50)
[2022-02-04] MEDS: ASPIRIN 81 MG ECTAB PO SCH (07:29)
[2022-02-04 07:52] LABS: Basophils # (auto) 0.03 K/uL (0-0.2); Basophils % (auto) 0.3 %; Eosinophils # (auto) 0.22 K/uL (0-0.50); Hematocrit (blood only) 37.1 % (40.1-51.0); Hemoglobin 12.8 g/dl (14.0-18.0); Immature Granulocytes # (auto) 0.04 K/uL (0.00-0.02); Immature Granulocytes % (auto) 0.4 %; Lymphocytes # (auto) 2.41 K/uL (1.2-3.4); Lymphocytes % (auto) 21.4 %; Mean Corpuscular Hemoglobin 30.5 pg (25.0-34.0); Mean Corpuscular Hgb Conc 34.5 g/dL (32.0-36.0); Mean Corpuscular Volume 88.3 fL (80.0-100.0); Mean Platelet Volume 10.4 fL (9.4-12.4); Monocytes # (auto) 0.97 K/uL (0.24-0.82); Monocytes % (auto) 8.6 %; Neutrophils # (auto) 7.58 K/uL (1.4-6.5); Neutrophils % (auto) 67.3 %; Platelet Count 166 K/uL (130-400); RDW Coefficient of Variation 12.5 % (11.5-14.5); RDW Standard Deviation 40.6 fL (36.4-46.3); White Blood Count 11.25 K/ul (4.8-10.8)
[2022-02-04] MEDS: amLODIPine BESYLATE 5 MG TAB PO SCH (08:32)
[2022-02-04] MEDS: LANTUS PER UNIT CHARGE SQ SCH (08:32)
[2022-02-04 08:37] LABS: BUN Creatinine Ratio 16.2 (10-20); Calcium 8.4 mg/dl (8.5-10.1); Creatinine Clr Calc Pharmacy 74.2 ml/min; Est GFR (Non-African American) 68.1 ml/min; Potassium 3.6 mmol/L (3.5-5.1)
[2022-02-04] MEDS ORDERED: amLODIPine BESYLATE 5 MG TAB PO SCH (09:00)
[2022-02-04] MEDS: DIGOXIN 0.25 MG TAB PO SCH (16:41)
[2022-02-04] MEDS ORDERED: MIDAZOLAM HCL 1 MG/ML 2ML VIAL ONE (16:56)
[2022-02-04] MEDS ORDERED: BUPIVACAINE 0.5 % 5 MG/1 ML PF 10ML VIAL ONE (16:58)
[2022-02-04] MEDS ORDERED: ROPIVACAINE 0.5% HCL/PF 150 MG, BUPIVACAINE 0.75% MPF 20 ML, EPINEPHrine 30MG/30ML (OR ... INFIL SCH (17:00)
[2022-02-04] MEDS ORDERED: fentaNYL citrate 100 MCG/2 ML VIAL IV PRN (17:19)
[2022-02-04] MEDS ORDERED: ATROPINE SULFATE 0.1 MG/ML 10ML SYR IV PRN (17:19)
[2022-02-04] MEDS ORDERED: ePHEDrine sulfate 50 MG/ML AMP IV PRN (17:19)
[2022-02-04] MEDS ORDERED: ONDANSETRON INJ 2 MG/ML 2 ML VIAL IV PRN (17:19)
--- NOTE | 2022-02-04 17:39 | Hospitalist Progress Note ---
Date of Service February 04, 2022 Assessment & Plan (1) Closed fracture of right hip: Plan 76-year-old male with PMH of PSVT/PAF, PVD, HTN, HLD, DM2, past tobacco abuse who presented to the ED 02/03 after mechanical fall while shower and inflicted right hip injury, denies loss of consciousness/head trauma/chest pain/shortness of breath/palpitations/dizziness/seizure-like activity/involuntary loss of bowel or bladder movement. He is being managed for the following: Hypertensive urgency: Likely secondary to traumatic right hip fracture [see below], amlodipine while lisinopril/home diuretic on hold [see below]. Blood pressure fairly better today. Mechanical fall Right hip fracture Patient came in with fall [see above] Admitting hip x-ray with acute displaced right femoral neck fracture Admitting CXR with no acute findings. Patient denies any stroke/TX/stents, uses cane occasionally, reports being able to climb 2-3 flights of stairs without chest pain or shortness of breath. Class II cardiovascular risk for needed Rt hip repair. Pain control, likely surgical repair today. Postoperative PT/OT/DVT prophylaxis per primary team Will continue to monitor. ARF: Admitting creatinine of 1.48, resolved, lisinopril HCTZ was held earlier and amlodipine was initiated, continue with the same for the time being, switch back to lisinopril HCTZ postoperatively. Caution with blood pressure medication during perioperative period. Minimal CPK elevation: 240 at admission, will follow CPK in a.m., statin on hold, CPK minimally uptrending. Other chronic medical conditions: History of PSVT/PAF, PVD, HLD, DM2, systolic murmur, past tobacco abuse --->> continue with/resume home meds as and when able. Sliding scale insulin. We will continue with telemetry perioperatively. DVT prophylaxis with SCDs Re: Possible surgery Full code Admission and Anticipated Discharge Date Admission Date: February 03, 2022 Subjective Patient seen and examined at bedside as a follow-up of hypertensive urgency and traumatic right hip fracture secondary to mechanical fall. Patient was lying in bed, on room air, NAD, reports pain under control, denies any new acute events overnight, patient n.p.o. for Ortho eval. patient denies any headache/fever/chills/chest pain/palpitations/shortness of breath/cough/sore throat/belly pain/acute changes in his bowel or bladder habits/other review of symptoms. Physical Exam Physical Exam: GENERAL: Alert and oriented x3. NAD, on RA. HEENT: No pallor, no icterus. Pupils equal, round and reactive to light. Oral mucosa moist. NECK: No JVD, no neck masses. HEART: S1 and S2 heard. Regular rate and rhythm. No murmur, no gallop. RESPIRATORY SYSTEM: Normal AP diameter. No accessory muscle use. No wheezing, no crackles. ABDOMEN: Soft, bowel sounds present, nontender, no distention. CENTRAL NERVOUS SYSTEM: No facial droop. Speech is clear. Obeys simple commands. Moves extremities. EXTREMITIES: No edema, no erythema seen. Distal NV status nl x RLE. Non tender and no bruise x Rt hip. Results & Data Results & Data ([facility]) Vital Signs (Past 12 Hours) Vital Signs Temp Pulse Pulse Pulse Resp BP BP 02/04/22 17:26 37.6 C H 78 18 128/68 02/04/22 16:41 76 02/04/22 16:41 37.0 C 76 18 118/66 02/04/22 11:26 36.9 C 67 18 129/72 02/04/22 08:08 74 02/04/22 08:00 02/04/22 07:00 02/04/22 06:41 37.1 C 69 18 127/65 Pulse Ox O2 Del Method O2 Del Method 02/04/22 17:26 95 Room Air 02/04/22 16:41 02/04/22 16:41 95 Room Air 02/04/22 11:26 94 Room Air 02/04/22 08:08 02/04/22 08:00 Room Air 02/04/22 07:00 Room Air 02/04/22 06:41 94 Room Air (1) Closed fracture of right hip Encounter type: initial encounter Qualified Code(s): S72.001A - Fracture of unspecified part of neck of right femur, initial encounter for closed fracture
[2022-02-04] MEDS ORDERED: ORTHO JOINT ANESTHETIC ONE (17:56)
[2022-02-04] MEDS ORDERED: ceFAZolin 3000MG/72.5 ML BAG IV ONE (18:27)
--- NOTE | 2022-02-04 18:30 | History & Physical Bridge Note ---
Date of Service February 04, 2022 History & Physical Bridge Note I have examined the patient, reviewed the History & Physical and in the interval since the performance of the History & Physical I have noted the following changes of clinical significance: We will require right total hip arthroplasty for fracture.
[2022-02-04] MEDS ORDERED: PROPOFOL IV EMULSION 10 MG/ML 20 ML VIAL IV ONE ×3 (18:56→21:46)
[2022-02-04] MEDS ORDERED: ONDANSETRON INJ 2 MG/ML 2 ML VIAL ONE (21:46)
[2022-02-04] MEDS ORDERED: MEPERIDINE HCL 25 MG/ML CARP/VIAL IV PRN (21:59)
--- NOTE | 2022-02-04 22:03 | Post Operative Brief Note ---
Immediate Post Op Note v1 Date of Surgery February 04, 2022 Pre & Post Diagnosis Operation Date: 02/04/22 07:00 Pre-Op Diagnosis: Displaced femoral neck fracture, right hip osteoarthritis, right hip pain Post-Op Diagnosis: Displaced femoral neck fracture, right hip osteoarthritis, right hip pain I identified the patient and participated in the time-out.: Yes Procedure Operation Date: 02/04/22 07:00 Actual Procedures p Right Total Hip Arthroplasty with press-fit Tamera size 8 femur, Biolox ceramic femoral head +0 neck, Trident 260 mm acetabular shell, X.3 polyethylene liner with 10 degree elevated rim, 6.5 mm locking screws x2 (Right) - Ricky Jones DO Surgeon Ricky Jones DO Application Development Intern Jamie Marrero PA-C Estimated Blood Loss 100 Findings Consistent with Post-Op Diagnosis Specimens Bone and tissue right hip Drains Valladares Catheter (16fr valladares with 10cc balloon at 1850. Inserted with no difficulty.) and Hemovac Drain (10 Slovenian Hemovac drains x2) Anesthesia Type MAC Spinal Regional Complications none Disposition Accompanied Patient To Recovery: No
[2022-02-04] MEDS ORDERED: bisacodyL 10 MG SUPP PR PRN (23:07)
[2022-02-04] MEDS ORDERED: SODIUM CHLORIDE 0.9% 1000ML 1,000 ML IV SCH (23:07)
[2022-02-04] MEDS ORDERED: METOCLOPRAMIDE HCL INJ 5 MG/ML 2 ML VIAL IV PRN (23:07)
[2022-02-04] MEDS ORDERED: MAGNESIUM HYDROXIDE SUSP 30 ML UDC PO PRN (23:07)
[2022-02-04] MEDS ORDERED: NALOXONE HCL 0.4 MG/1 ML VIAL/CARP IV PRN (23:07)
[2022-02-04] MEDS ORDERED: TAMSULOSIN HCL 0.4 MG CAP PO PRN (23:07)
--- NOTE | 2022-02-04 23:26 | Anesthesiology Progress Note ---
Date of Service February 04, 2022 Anesthesia Post Procedure Vital Signs Vital Signs: Temp Pulse Pulse Pulse Resp BP BP 02/04/22 23:07 37.1 C 64 16 144/70 H 02/04/22 22:50 36.3 C L 63 20 133/56 L 02/04/22 22:30 63 20 121/50 L 02/04/22 22:40 64 18 123/62 02/04/22 22:20 63 13 129/54 L 02/04/22 22:12 36.6 C 64 19 121/53 L 02/04/22 18:51 76 02/04/22 17:26 37.6 C H 78 18 128/68 02/04/22 16:41 76 02/04/22 16:41 37.0 C 76 18 118/66 02/04/22 11:26 36.9 C 67 18 129/72 02/04/22 08:08 74 02/04/22 08:00 02/04/22 07:00 02/04/22 06:41 37.1 C 69 18 127/65 02/04/22 04:34 37.1 C 02/04/22 04:10 37.9 C H 77 18 116/55 L 02/04/22 03:00 02/04/22 03:00 02/03/22 23:33 76 Pulse Ox O2 Del Method O2 Del Method O2 Flow Rate 02/04/22 23:07 96 Nasal Cannula 2 02/04/22 22:50 96 Nasal Cannula 2 02/04/22 22:30 95 Nasal Cannula 2 02/04/22 22:40 94 Nasal Cannula 2 02/04/22 22:20 98 Oxymask 4 02/04/22 22:12 100 Oxymask 4 02/04/22 18:51 02/04/22 17:26 95 Room Air 02/04/22 16:41 02/04/22 16:41 95 Room Air 02/04/22 11:26 94 Room Air 02/04/22 08:08 02/04/22 08:00 Room Air 02/04/22 07:00 Room Air 02/04/22 06:41 94 Room Air 02/04/22 04:34 02/04/22 04:10 93 Room Air 02/04/22 03:00 Room Air 02/04/22 03:00 Room Air 02/03/22 23:33 Pain Intensity Right Hip: Pain Intensity: 5 Transfer of Care Handoff Completed per policy Notes Mental Status: alert / awake / arousable and participated in evaluation Patient Amnestic to Procedure: Yes Nausea / Vomiting: adequately controlled Pain: adequately controlled Airway Patency, RR, SpO2: stable & adequate BP & HR: stable & adequate Hydration State: stable & adequate Neuraxial Anesthesia: was administered and sensory block is resolving Anesthetic Complications: no major complications apparent and Pt Satisfied with anesthetic care
[2022-02-05] MEDS ORDERED: ceFAZolin 2000MG 2,000 MG/15 ML SYR IV SCH (04:15)
--- NOTE | 2022-02-05 07:24 | XRay Report ---
SINGLE VIEW PELVIS; SINGLE VIEW RIGHT HIP CLINICAL HISTORY: Postoperative examination. FINDINGS: An AP portable view of the hips and pelvis with a crosstable lateral portable view of the r ight hip are compared to study dated 02/03/2022. A bipolar right hip arthroplasty is in near-anatomic alignment. At least 2 cortical lag screws transfix the acetabular cup. No acute fracture is identifie d. There are expected postoperative changes overlying the right hip including skin clips, subcutaneou s gas, a surgical drain, and soft tissue swelling. Moderate arthritic changes noted in the left hip. There is atherosclerotic calcification of the femoral arteries. A Meza catheter is in place. IMPRESSION: Expected postoperative findings status post right hip arthroplasty. No acute fracture is seen. ACT 112: Negative or not required by law. Electronically signed by: Vishal Hardin M.D. 02/05/2022 7:22 AM
[2022-02-05] MEDS: ACETAMINOPHEN 325 MG TAB PO PRN ×3 (09:10→20:11)
[2022-02-05] MEDS: INSULIN ASPART PER UNIT SC SCH ×4 (09:11→20:11)
[2022-02-05] MEDS: ENOXAPARIN INJ 40 MG/0.4 ML SYR SQ SCH (09:11)
[2022-02-05] MEDS: DOCUSATE SODIUM 100 MG CAP PO SCH ×4 (09:12→20:11)
[2022-02-05] MEDS: LANTUS PER UNIT CHARGE SQ SCH (09:12)
[2022-02-05] MEDS: amLODIPine BESYLATE 5 MG TAB PO SCH (09:13)
[2022-02-05] MEDS: MULTIVITAMIN TAB PO SCH (09:13)
[2022-02-05] MEDS ORDERED: SODIUM CHLORIDE 0.9% 1000ML 1,000 ML IV SCH (09:15)
[2022-02-05 09:20] LABS: BUN Creatinine Ratio 22.6 (10-20); Calcium 8.5 mg/dl (8.5-10.1); Creatinine Clr Calc Pharmacy 77.3 ml/min; Est GFR (African American) 91.5 ml/min; Est GFR (Non-African American) 78.9 ml/min; Magnesium 1.7 mg/dl (1.7-2.4); Phosphorus 3.6 mg/dl (2.5-4.9); Potassium 4.6 mmol/L (3.5-5.1)
--- NOTE | 2022-02-05 09:28 | Orthopedic Progress Note ---
Date of Service February 05, 2022 Assessment & Plan (1) Closed fracture of right hip: Plan: Postop day #1 right total hip arthroplasty for fracture -PT/OT: Weightbearing as tolerated with walker -AM labs: CBC is pending. He has normal kidney function this morning. -Pain management as written -DVT prophylaxis: SCDs, teds, Lovenox -Patient's temperature is elevated at 39.6 this morning. Patient seems to be confused and not answering all questions. I am unsure of his baseline. Hospitalist is aware. Admission and Anticipated Discharge Date Admission Date: February 03, 2022 Subjective Postop day #1 right total hip arthroplasty. Patient without complaint of pain however he answers only some of my questions. No other complaints at this time. Review of Systems Review of Systems: All systems reviewed & are unremarkable except as noted in Subjective Physical Exam Physical Exam: Right hip dressing is clean, dry, intact. Compartments are soft and nontender. No surrounding erythema. No calf tenderness. Toes are mobile. Distal pulses palpable. Leg lengths appear equal. Constitutional: WD/WN, vitals as above Results & Data ([facility]) Vital Signs (Past 12 Hours) Vital Signs Temp Pulse Pulse Resp BP Pulse Ox Pulse Ox 02/05/22 09:09 39.6 C H 104 H 22 150/73 H 90 02/05/22 08:16 37.8 C H 67 16 149/74 H 96 02/05/22 06:00 92 02/05/22 05:36 02/05/22 04:00 02/05/22 03:00 92 02/05/22 01:37 37.0 C 77 16 106/64 93 02/05/22 00:00 02/04/22 23:50 36.6 C 71 18 143/72 H 93 02/05/22 00:00 02/04/22 23:47 72 02/05/22 00:37 37.0 C 79 16 108/61 92 02/04/22 23:37 37.0 C 76 18 146/73 H 93 02/04/22 23:07 37.1 C 64 16 144/70 H 96 02/04/22 22:50 36.3 C L 63 20 133/56 L 96 02/04/22 22:30 63 20 121/50 L 95 02/04/22 22:40 64 18 123/62 94 02/04/22 22:20 63 13 129/54 L 98 02/04/22 22:12 36.6 C 64 19 121/53 L 100 O2 Del Method O2 Del Method O2 Flow Rate 02/05/22 09:09 Room Air 02/05/22 08:16 Room Air 02/05/22 06:00 Room Air 02/05/22 05:36 Room Air 02/05/22 04:00 Room Air 02/05/22 03:00 Room Air 02/05/22 01:37 Room Air 02/05/22 00:00 Nasal Cannula 1 02/04/22 23:50 02/05/22 00:00 Nasal Cannula 1 02/04/22 23:47 02/05/22 00:37 Nasal Cannula 1 02/04/22 23:37 Nasal Cannula 02/04/22 23:07 Nasal Cannula 2 02/04/22 22:50 Nasal Cannula 2 02/04/22 22:30 Nasal Cannula 2 02/04/22 22:40 Nasal Cannula 2 02/04/22 22:20 Oxymask 4 02/04/22 22:12 Oxymask 4 Laboratory Results Lab Results 02/03/22 02/03/22 02/03/22 Range/Units 02:00 02:00 02:00 WBC 16.74 H (4.8-10.8) K/ul RBC 4.94 (4.63-6.08) M/uL Hgb 15.0 (14.0-18.0) g/dl Hct 42.9 (40.1-51.0) % MCV 86.8 (80.0-100.0) fL MCH 30.4 (25.0-34.0) pg MCHC 35.0 (32.0-36.0) g/dL RDW Std Deviation 39.8 (36.4-46.3) fL RDW Coeff of Aleyda 12.6 (11.5-14.5) % Plt Count 222 (130-400) K/uL MPV 10.7 (9.4-12.4) fL Immature Gran % (Auto) 0.4 % Neut % (Auto) 86.8 % Lymph % (Auto) 7.0 % [place] % (Auto) 5.4 % Eos % (Auto) 0.2 % Baso % (Auto) 0.2 % Neut # (Auto) 14.52 H (1.4-6.5) K/uL Lymph # (Auto) 1.17 L (1.2-3.4) K/uL [place] # (Auto) 0.91 H (0.24-0.82) K/uL Eos # (Auto) 0.03 (0-0.50) K/uL Baso # (Auto) 0.04 (0-0.2) K/uL Immature Gran # (Auto) 0.07 H (0.00-0.02) K/uL PT 11.1 (9.0-12.0) Seconds INR 1.0 (0.9-1.1) APTT 23.4 (21.0-31.0) Seconds PTT Ratio 0.9 Sodium 137 (136-145) mmol/L Potassium 4.3 (3.5-5.1) mmol/L Chloride 101 (98-107) mmol/L Carbon Dioxide 24 (21-32) mmol/L Anion Gap 12 H (3-11) BUN 23 (6-23) mg/dl Creatinine 1.48 H (0.6-1.4) mg/dl Est Cr Clr Drug Dosing 52.7 ml/min Est GFR ( Amer) 52.1 ml/min Est GFR (Non-Af Amer) 45.0 ml/min BUN/Creatinine Ratio 15.5 (10-20) Glucose 312 H* (70-99(Fasting)) mg/dl POC Glucose (70-99) mg/dl Calcium 9.6 (8.5-10.1) mg/dl Phosphorus (2.5-4.9) mg/dl Magnesium 1.8 (1.7-2.4) mg/dl Total Bilirubin 0.6 (0.2-1.0) mg/dl AST 26 (13-39) U/L ALT 29 (7-52) U/L Alkaline Phosphatase 58 (34-104) U/L Total Creatine Kinase (30-223) U/L Total Protein 7.2 (6.0-8.3) gm/dl Albumin 4.3 (3.4-5.0) gm/dl Globulin 2.9 (2.5-4.0) gm/dl Albumin/Globulin Ratio 1.5 (0.9-2) Urine Color Urine Appearance (Clear) Urine pH (4.5-7.5) Ur Specific [place] (1.000-1.030) Urine Protein (Negative) Urine Glucose (UA) (Negative) Urine Ketones (Negative) Urine Blood (Negative) Urine Nitrite (Negative) Urine Bilirubin (Negative) Urine Urobilinogen (Negative) Ur Leukocyte Esterase (Negative) Urine WBC (Auto) (0-5) /hpf Urine RBC (Auto) (0-4) /hpf U Hyaline Cast (Auto) (0-5) /lpf U Epithel Cells (Auto) (0-5) /lpf Urine Bacteria (Auto) (Negative) Digoxin (0.8-2.0) ng/ml SARS-CoV-2, RNA, NAAT (NEGATIVE) Blood Type Antibody Screen 02/03/22 02/03/22 02/03/22 Range/Units 02:00 02:00 02:00 WBC (4.8-10.8) K/ul RBC (4.63-6.08) M/uL Hgb (14.0-18.0) g/dl Hct (40.1-51.0) % MCV (80.0-100.0) fL MCH (25.0-34.0) pg MCHC (32.0-36.0) g/dL RDW Std Deviation (36.4-46.3) fL RDW Coeff of Aleyda (11.5-14.5) % Plt Count (130-400) K/uL MPV (9.4-12.4) fL Immature Gran % (Auto) % Neut % (Auto) % Lymph % (Auto) % [place] % (Auto) % Eos % (Auto) % Baso % (Auto) % Neut # (Auto) (1.4-6.5) K/uL Lymph # (Auto) (1.2-3.4) K/uL [place] # (Auto) (0.24-0.82) K/uL Eos # (Auto) (0-0.50) K/uL Baso # (Auto) (0-0.2) K/uL Immature Gran # (Auto) (0.00-0.02) K/uL PT (9.0-12.0) Seconds INR (0.9-1.1) APTT (21.0-31.0) Seconds PTT Ratio Sodium (136-145) mmol/L Potassium (3.5-5.1) mmol/L Chloride (98-107) mmol/L Carbon Dioxide (21-32) mmol/L Anion Gap (3-11) BUN (6-23) mg/dl Creatinine (0.6-1.4) mg/dl Est Cr Clr Drug Dosing ml/min Est GFR ( Amer) ml/min Est GFR (Non-Af Amer) ml/min BUN/Creatinine Ratio (10-20) Glucose (70-99(Fasting)) mg/dl POC Glucose (70-99) mg/dl Calcium (8.5-10.1) mg/dl Phosphorus (2.5-4.9) mg/dl Magnesium (1.7-2.4) mg/dl Total Bilirubin (0.2-1.0) mg/dl AST (13-39) U/L ALT (7-52) U/L Alkaline Phosphatase (34-104) U/L Total Creatine Kinase 240 H (30-223) U/L Total Protein (6.0-8.3) gm/dl Albumin (3.4-5.0) gm/dl Globulin (2.5-4.0) gm/dl Albumin/Globulin Ratio (0.9-2) Urine Color Urine Appearance (Clear) Urine pH (4.5-7.5) Ur Specific [place] (1.000-1.030) Urine Protein (Negative) Urine Glucose (UA) (Negative) Urine Ketones (Negative) Urine Blood (Negative) Urine Nitrite (Negative) Urine Bilirubin (Negative) Urine Urobilinogen (Negative) Ur Leukocyte Esterase (Negative) Urine WBC (Auto) (0-5) /hpf Urine RBC (Auto) (0-4) /hpf U Hyaline Cast (Auto) (0-5) /lpf U Epithel Cells (Auto) (0-5) /lpf Urine Bacteria (Auto) (Negative) Digoxin 0.9 (0.8-2.0) ng/ml SARS-CoV-2, RNA, NAAT NEGATIVE (NEGATIVE) Blood Type Antibody Screen 02/03/22 02/03/22 02/03/22 Range/Units 02:56 04:05 05:22 WBC (4.8-10.8) K/ul RBC (4.63-6.08) M/uL Hgb (14.0-18.0) g/dl Hct (40.1-51.0) % MCV (80.0-100.0) fL MCH (25.0-34.0) pg MCHC (32.0-36.0) g/dL RDW Std Deviation (36.4-46.3) fL RDW Coeff of Aleyda (11.5-14.5) % Plt Count (130-400) K/uL MPV (9.4-12.4) fL Immature Gran % (Auto) % Neut % (Auto) % Lymph % (Auto) % [place] % (Auto) % Eos % (Auto) % Baso % (Auto) % Neut # (Auto) (1.4-6.5) K/uL Lymph # (Auto) (1.2-3.4) K/uL [place] # (Auto) (0.24-0.82) K/uL Eos # (Auto) (0-0.50) K/uL Baso # (Auto) (0-0.2) K/uL Immature Gran # (Auto) (0.00-0.02) K/uL PT (9.0-12.0) Seconds INR (0.9-1.1) APTT (21.0-31.0) Seconds PTT Ratio Sodium (136-145) mmol/L Potassium (3.5-5.1) mmol/L Chloride (98-107) mmol/L Carbon Dioxide (21-32) mmol/L Anion Gap (3-11) BUN (6-23) mg/dl Creatinine (0.6-1.4) mg/dl Est Cr Clr Drug Dosing ml/min Est GFR ( Amer) ml/min Est GFR (Non-Af Amer) ml/min BUN/Creatinine Ratio (10-20) Glucose (70-99(Fasting)) mg/dl POC Glucose 275 H (70-99) mg/dl Calcium (8.5-10.1) mg/dl Phosphorus (2.5-4.9) mg/dl Magnesium (1.7-2.4) mg/dl Total Bilirubin (0.2-1.0) mg/dl AST (13-39) U/L ALT (7-52) U/L Alkaline Phosphatase (34-104) U/L Total Creatine Kinase (30-223) U/L Total Protein (6.0-8.3) gm/dl Albumin (3.4-5.0) gm/dl Globulin (2.5-4.0) gm/dl Albumin/Globulin Ratio (0.9-2) Urine Color Yellow Urine Appearance Clear (Clear) Urine pH 5.5 (4.5-7.5) Ur Specific [place] 1.022 (1.000-1.030) Urine Protein 1+ H (Negative) Urine Glucose (UA) 3+ H (Negative) Urine Ketones Trace H (Negative) Urine Blood 1+ H (Negative) Urine Nitrite Negative (Negative) Urine Bilirubin Negative (Negative) Urine Urobilinogen Negative (Negative) Ur Leukocyte Esterase Negative (Negative) Urine WBC (Auto) 0 (0-5) /hpf Urine RBC (Auto) 0-4 (0-4) /hpf U Hyaline Cast (Auto) 1-5 (0-5) /lpf U Epithel Cells (Auto) 5-10 H (0-5) /lpf Urine Bacteria (Auto) Negative (Negative) Digoxin (0.8-2.0) ng/ml SARS-CoV-2, RNA, NAAT (NEGATIVE) Blood Type A Positive Antibody Screen NEGATIVE 02/03/22 02/03/22 02/03/22 Range/Units 07:56 08:00 13:09 WBC (4.8-10.8) K/ul RBC (4.63-6.08) M/uL Hgb (14.0-18.0) g/dl Hct (40.1-51.0) % MCV (80.0-100.0) fL MCH (25.0-34.0) pg MCHC (32.0-36.0) g/dL RDW Std Deviation (36.4-46.3) fL RDW Coeff of Aleyda (11.5-14.5) % Plt Count (130-400) K/uL MPV (9.4-12.4) fL Immature Gran % (Auto) % Neut % (Auto) % Lymph % (Auto) % [place] % (Auto) % Eos % (Auto) % Baso % (Auto) % Neut # (Auto) (1.4-6.5) K/uL Lymph # (Auto) (1.2-3.4) K/uL [place] # (Auto) (0.24-0.82) K/uL Eos # (Auto) (0-0.50) K/uL Baso # (Auto) (0-0.2) K/uL Immature Gran # (Auto) (0.00-0.02) K/uL PT (9.0-12.0) Seconds INR (0.9-1.1) APTT (21.0-31.0) Seconds PTT Ratio Sodium 138 (136-145) mmol/L Potassium 3.7 (3.5-5.1) mmol/L Chloride 102 (98-107) mmol/L Carbon Dioxide 29 (21-32) mmol/L Anion Gap 7 (3-11) BUN 22 (6-23) mg/dl Creatinine 1.15 D (0.6-1.4) mg/dl Est Cr Clr Drug Dosing 67.8 ml/min Est GFR ( Amer) 70.7 ml/min Est GFR (Non-Af Amer) 61.0 ml/min BUN/Creatinine Ratio 19.1 (10-20) Glucose 223 H (70-99(Fasting)) mg/dl POC Glucose 217 H 242 H (70-99) mg/dl Calcium 9.6 (8.5-10.1) mg/dl Phosphorus (2.5-4.9) mg/dl Magnesium (1.7-2.4) mg/dl Total Bilirubin (0.2-1.0) mg/dl AST (13-39) U/L ALT (7-52) U/L Alkaline Phosphatase (34-104) U/L Total Creatine Kinase (30-223) U/L Total Protein (6.0-8.3) gm/dl Albumin (3.4-5.0) gm/dl Globulin (2.5-4.0) gm/dl Albumin/Globulin Ratio (0.9-2) Urine Color Urine Appearance (Clear) Urine pH (4.5-7.5) Ur Specific [place] (1.000-1.030) Urine Protein (Negative) Urine Glucose (UA) (Negative) Urine Ketones (Negative) Urine Blood (Negative) Urine Nitrite (Negative) Urine Bilirubin (Negative) Urine Urobilinogen (Negative) Ur Leukocyte Esterase (Negative) Urine WBC (Auto) (0-5) /hpf Urine RBC (Auto) (0-4) /hpf U Hyaline Cast (Auto) (0-5) /lpf U Epithel Cells (Auto) (0-5) /lpf Urine Bacteria (Auto) (Negative) Digoxin (0.8-2.0) ng/ml SARS-CoV-2, RNA, NAAT (NEGATIVE) Blood Type Antibody Screen 02/03/22 02/03/22 02/04/22 Range/Units 17:10 20:11 00:10 WBC (4.8-10.8) K/ul RBC (4.63-6.08) M/uL Hgb (14.0-18.0) g/dl Hct (40.1-51.0) % MCV (80.0-100.0) fL MCH (25.0-34.0) pg MCHC (32.0-36.0) g/dL RDW Std Deviation (36.4-46.3) fL RDW Coeff of [place]leyda (11.5-14.5) % Plt Count (130-400) K/uL MPV (9.4-12.4) fL Immature Gran % (Auto) % Neut % (Auto) % Lymph % (Auto) % [place] % (Auto) % Eos % (Auto) % Baso % (Auto) % Neut # (Auto) (1.4-6.5) K/uL Lymph # (Auto) (1.2-3.4) K/uL [place] # (Auto) (0.24-0.82) K/uL Eos # (Auto) (0-0.50) K/uL Baso # (Auto) (0-0.2) K/uL Immature Gran # (Auto) (0.00-0.02) K/uL PT (9.0-12.0) Seconds INR (0.9-1.1) APTT (21.0-31.0) Seconds PTT Ratio Sodium (136-145) mmol/L Potassium (3.5-5.1) mmol/L Chloride (98-107) mmol/L Carbon Dioxide (21-32) mmol/L Anion Gap (3-11) BUN (6-23) mg/dl Creatinine (0.6-1.4) mg/dl Est Cr Clr Drug Dosing ml/min Est GFR ( Amer) ml/min Est GFR (Non-Af Amer) ml/min BUN/Creatinine Ratio (10-20) Glucose (70-99(Fasting)) mg/dl POC Glucose 232 H 238 H 202 H (70-99) mg/dl Calcium (8.5-10.1) mg/dl Phosphorus (2.5-4.9) mg/dl Magnesium (1.7-2.4) mg/dl Total Bilirubin (0.2-1.0) mg/dl AST (13-39) U/L ALT (7-52) U/L Alkaline Phosphatase (34-104) U/L Total Creatine Kinase (30-223) U/L Total Protein (6.0-8.3) gm/dl Albumin (3.4-5.0) gm/dl Globulin (2.5-4.0) gm/dl Albumin/Globulin Ratio (0.9-2) Urine Color Urine Appearance (Clear) Urine pH (4.5-7.5) Ur Specific [place] (1.000-1.030) Urine Protein (Negative) Urine Glucose (UA) (Negative) Urine Ketones (Negative) Urine Blood (Negative) Urine Nitrite (Negative) Urine Bilirubin (Negative) Urine Urobilinogen (Negative) Ur Leukocyte Esterase (Negative) Urine WBC (Auto) (0-5) /hpf Urine RBC (Auto) (0-4) /hpf U Hyaline Cast (Auto) (0-5) /lpf U Epithel Cells (Auto) (0-5) /lpf Urine Bacteria (Auto) (Negative) Digoxin (0.8-2.0) ng/ml SARS-CoV-2, RNA, NAAT (NEGATIVE) Blood Type Antibody Screen 02/04/22 02/04/22 02/04/22 Range/Units 06:40 07:29 07:29 WBC 11.25 H (4.8-10.8) K/ul RBC 4.20 L (4.63-6.08) M/uL Hgb 12.8 L (14.0-18.0) g/dl Hct 37.1 L (40.1-51.0) % MCV 88.3 (80.0-100.0) fL MCH 30.5 (25.0-34.0) pg MCHC 34.5 (32.0-36.0) g/dL RDW Std Deviation 40.6 (36.4-46.3) fL RDW Coeff of [place]ley[place] 12.5 (11.5-14.5) % Plt Count 166 (130-400) K/uL MPV 10.4 (9.4-12.4) fL Immature Gran % (Auto) 0.4 % Neut % (Auto) 67.3 % Lymph % (Auto) 21.4 % [place] % (Auto) 8.6 % Eos % (Auto) 2.0 % Baso % (Auto) 0.3 % Neut # (Auto) 7.58 H (1.4-6.5) K/uL Lymph # (Auto) 2.41 (1.2-3.4) K/uL [place] # (Auto) 0.97 H (0.24-0.82) K/uL Eos # (Auto) 0.22 (0-0.50) K/uL Baso # (Auto) 0.03 (0-0.2) K/uL Immature Gran # (Auto) 0.04 H (0.00-0.02) K/uL PT (9.0-12.0) Seconds INR (0.9-1.1) APTT (21.0-31.0) Seconds PTT Ratio Sodium 135 L (136-145) mmol/L Potassium 3.6 (3.5-5.1) mmol/L Chloride 100 (98-107) mmol/L Carbon Dioxide 28 (21-32) mmol/L Anion Gap 7 (3-11) BUN 17 (6-23) mg/dl Creatinine 1.05 (0.6-1.4) mg/dl Est Cr Clr Drug Dosing 74.2 ml/min Est GFR ( Amer) 79.0 ml/min Est GFR (Non-Af Amer) 68.1 ml/min BUN/Creatinine Ratio 16.2 (10-20) Glucose 223 H (70-99(Fasting)) mg/dl POC Glucose 225 H (70-99) mg/dl Calcium 8.4 L (8.5-10.1) mg/dl Phosphorus (2.5-4.9) mg/dl Magnesium (1.7-2.4) mg/dl Total Bilirubin (0.2-1.0) mg/dl AST (13-39) U/L ALT (7-52) U/L Alkaline Phosphatase (34-104) U/L Total Creatine Kinase 607 H (30-223) U/L Total Protein (6.0-8.3) gm/dl Albumin (3.4-5.0) gm/dl Globulin (2.5-4.0) gm/dl Albumin/Globulin Ratio (0.9-2) Urine Color Urine Appearance (Clear) Urine pH (4.5-7.5) Ur Specific [place] (1.000-1.030) Urine Protein (Negative) Urine Glucose (UA) (Negative) Urine Ketones (Negative) Urine Blood (Negative) Urine Nitrite (Negative) Urine Bilirubin (Negative) Urine Urobilinogen (Negative) Ur Leukocyte Esterase (Negative) Urine WBC (Auto) (0-5) /hpf Urine RBC (Auto) (0-4) /hpf U Hyaline Cast (Auto) (0-5) /lpf U Epithel Cells (Auto) (0-5) /lpf Urine Bacteria (Auto) (Negative) Digoxin (0.8-2.0) ng/ml SARS-CoV-2, RNA, NAAT (NEGATIVE) Blood Type Antibody Screen 02/04/22 02/04/22 02/04/22 Range/Units 11:47 17:46 22:18 WBC (4.8-10.8) K/ul RBC (4.63-6.08) M/uL Hgb (14.0-18.0) g/dl Hct (40.1-51.0) % MCV (80.0-100.0) fL MCH (25.0-34.0) pg MCHC (32.0-36.0) g/dL RDW Std Deviation (36.4-46.3) fL RDW Coeff of [place] (11.5-14.5) % Plt Count (130-400) K/uL MPV (9.4-12.4) fL Immature Gran % (Auto) % Neut % (Auto) % Lymph % (Auto) % [place] % (Auto) % Eos % (Auto) % Baso % (Auto) % Neut # (Auto) (1.4-6.5) K/uL Lymph # (Auto) (1.2-3.4) K/uL [place] # (Auto) (0.24-0.82) K/uL Eos # (Auto) (0-0.50) K/uL Baso # (Auto) (0-0.2) K/uL Immature Gran # (Auto) (0.00-0.02) K/uL PT (9.0-12.0) Seconds INR (0.9-1.1) APTT (21.0-31.0) Seconds PTT Ratio Sodium (136-145) mmol/L Potassium (3.5-5.1) mmol/L Chloride (98-107) mmol/L Carbon Dioxide (21-32) mmol/L Anion Gap (3-11) BUN (6-23) mg/dl Creatinine (0.6-1.4) mg/dl Est Cr Clr Drug Dosing ml/min Est GFR ( Amer) ml/min Est GFR (Non-Af Amer) ml/min BUN/Creatinine Ratio (10-20) Glucose (70-99(Fasting)) mg/dl POC Glucose 175 H 212 H 198 H (70-99) mg/dl Calcium (8.5-10.1) mg/dl Phosphorus (2.5-4.9) mg/dl Magnesium (1.7-2.4) mg/dl Total Bilirubin (0.2-1.0) mg/dl AST (13-39) U/L ALT (7-52) U/L Alkaline Phosphatase (34-104) U/L Total Creatine Kinase (30-223) U/L Total Protein (6.0-8.3) gm/dl Albumin (3.4-5.0) gm/dl Globulin (2.5-4.0) gm/dl Albumin/Globulin Ratio (0.9-2) Urine Color Urine Appearance (Clear) Urine pH (4.5-7.5) Ur Specific [place] (1.000-1.030) Urine Protein (Negative) Urine Glucose (UA) (Negative) Urine Ketones (Negative) Urine Blood (Negative) Urine Nitrite (Negative) Urine Bilirubin (Negative) Urine Urobilinogen (Negative) Ur Leukocyte Esterase (Negative) Urine WBC (Auto) (0-5) /hpf Urine RBC (Auto) (0-4) /hpf U Hyaline Cast (Auto) (0-5) /lpf U Epithel Cells (Auto) (0-5) /lpf Urine Bacteria (Auto) (Negative) Digoxin (0.8-2.0) ng/ml SARS-CoV-2, RNA, NAAT (NEGATIVE) Blood Type Antibody Screen 02/04/22 02/05/22 02/05/22 Range/Units 23:24 07:45 07:56 WBC (4.8-10.8) K/ul RBC (4.63-6.08) M/uL Hgb (14.0-18.0) g/dl Hct (40.1-51.0) % MCV (80.0-100.0) fL MCH (25.0-34.0) pg MCHC (32.0-36.0) g/dL RDW Std Deviation (36.4-46.3) fL RDW Coeff of [place]ley[place] (11.5-14.5) % Plt Count (130-400) K/uL MPV (9.4-12.4) fL Immature Gran % (Auto) % Neut % (Auto) % Lymph % (Auto) % [place] % (Auto) % Eos % (Auto) % Baso % (Auto) % Neut # (Auto) (1.4-6.5) K/uL Lymph # (Auto) (1.2-3.4) K/uL [place] # (Auto) (0.24-0.82) K/uL Eos # (Auto) (0-0.50) K/uL Baso # (Auto) (0-0.2) K/uL Immature Gran # (Auto) (0.00-0.02) K/uL PT (9.0-12.0) Seconds INR (0.9-1.1) APTT (21.0-31.0) Seconds PTT Ratio Sodium 136 (136-145) mmol/L Potassium 4.6 D (3.5-5.1) mmol/L Chloride 102 (98-107) mmol/L Carbon Dioxide 26 (21-32) mmol/L Anion Gap 8 (3-11) BUN 21 (6-23) mg/dl Creatinine 0.93 (0.6-1.4) mg/dl Est Cr Clr Drug Dosing 77.3 ml/min Est GFR ( Amer) 91.5 ml/min Est GFR (Non-Af Amer) 78.9 ml/min BUN/Creatinine Ratio 22.6 H (10-20) Glucose 224 H (70-99(Fasting)) mg/dl POC Glucose 230 H 217 H (70-99) mg/dl Calcium 8.5 (8.5-10.1) mg/dl Phosphorus 3.6 (2.5-4.9) mg/dl Magnesium 1.7 (1.7-2.4) mg/dl Total Bilirubin (0.2-1.0) mg/dl AST (13-39) U/L ALT (7-52) U/L Alkaline Phosphatase (34-104) U/L Total Creatine Kinase 838 H (30-223) U/L Total Protein (6.0-8.3) gm/dl Albumin (3.4-5.0) gm/dl Globulin (2.5-4.0) gm/dl Albumin/Globulin Ratio (0.9-2) Urine Color Urine Appearance (Clear) Urine pH (4.5-7.5) Ur Specific [place] (1.000-1.030) Urine Protein (Negative) Urine Glucose (UA) (Negative) Urine Ketones (Negative) Urine Blood (Negative) Urine Nitrite (Negative) Urine Bilirubin (Negative) Urine Urobilinogen (Negative) Ur Leukocyte Esterase (Negative) Urine WBC (Auto) (0-5) /hpf Urine RBC (Auto) (0-4) /hpf U Hyaline Cast (Auto) (0-5) /lpf U Epithel Cells (Auto) (0-5) /lpf Urine Bacteria (Auto) (Negative) Digoxin (0.8-2.0) ng/ml SARS-CoV-2, RNA, NAAT (NEGATIVE) Blood Type Antibody Screen (1) Closed fracture of right hip Encounter type: initial encounter Qualified Code(s): S72.001A - Fracture of unspecified part of neck of right femur, initial encounter for closed fracture
[2022-02-05] MEDS ORDERED: PIPERACILLIN/TAZOBACTAM 3.375 GM in DEXTROSE 5% 100 ML IV ONE (10:00)
--- NOTE | 2022-02-05 10:13 | XRay Report ---
SINGLE VIEW CHEST CLINICAL HISTORY: Fever. FINDINGS: An AP, portable, upright chest radiograph is compared to study dated 02/03/2022. The examina tion is degraded by portable technique and patient rotation. The top normal for projection noting at herosclerotic calcification of the thoracic aorta. There is elevation of the left hemidiaphragm with bibasilar scarring/atelectasis. No airspace consolidation or large pleural effusion is identified. Th ere are scattered calcified granulomas. No pneumothorax is seen. The skeletal structures are osteopen ic. There are healed right-sided rib fractures. IMPRESSION: No active disease in the chest. ACT 112: Negative or not required by law. Electronically signed by: Vishal Hardin M.D. 02/05/2022 10:12 AM
[2022-02-05 10:57] LABS: Basophils # (auto) 0.02 K/uL (0-0.2); Basophils % (auto) 0.1 %; Eosinophils # (auto) 0.02 K/uL (0-0.50); Eosinophils % (auto) 0.1 %; Hematocrit (blood only) 37.6 % (40.1-51.0); Hemoglobin 12.7 g/dl (14.0-18.0); Immature Granulocytes # (auto) 0.06 K/uL (0.00-0.02); Immature Granulocytes % (auto) 0.4 %; Lymphocytes # (auto) 0.94 K/uL (1.2-3.4); Lymphocytes % (auto) 6.3 %; Mean Corpuscular Hemoglobin 30.2 pg (25.0-34.0); Mean Corpuscular Hgb Conc 33.8 g/dL (32.0-36.0); Mean Corpuscular Volume 89.3 fL (80.0-100.0); Mean Platelet Volume 11.4 fL (9.4-12.4); Monocytes # (auto) 1.02 K/uL (0.24-0.82); Monocytes % (auto) 6.9 %; Neutrophils % (auto) 86.2 %; Platelet Count 170 K/uL (130-400); RDW Coefficient of Variation 12.2 % (11.5-14.5); RDW Standard Deviation 40.1 fL (36.4-46.3); Red Blood Count 4.21 M/uL (4.63-6.08); White Blood Count 14.86 K/ul (4.8-10.8)
[2022-02-05 12:04] LABS: Appearance Urine Clear (Clear); Bacteria Urine Automated Negative (Negative); Bilirubin Urine Negative (Negative); Blood Urine 2+ (Negative); Color Urine Yellow; Glucose Urine UA 2+ (Negative); Ketones Urine 1+ (Negative); Leukocyte Esterase Urine Negative (Negative); Nitrite Urine Negative (Negative); Protein Urine 1+ (Negative); Specific Gravity Urine 1.026 (1.000-1.030); Urobilinogen Urine Negative (Negative); pH Urine 5.5 (4.5-7.5)
[2022-02-05 12:35] LABS: Amorphous Sediment Urine Present (None Prsent)
--- NOTE | 2022-02-05 12:53 | Hospitalist Progress Note ---
Date of Service February 05, 2022 Assessment & Plan (1) Closed fracture of right hip: Plan 76-year-old male with PMH of PSVT/PAF, PVD, HTN, HLD, DM2, past tobacco abuse who presented to the ED 02/03 after mechanical fall while shower and inflicted right hip injury, denies loss of consciousness/head trauma/chest pain/shortness of breath/palpitations/dizziness/seizure-like activity/involuntary loss of bowel or bladder movement. He is being managed for the following: Hypertensive urgency: Likely secondary to traumatic right hip fracture [see below], amlodipine while lisinopril/home diuretic on hold [see below]. Blood pressure fairly under control. Mechanical fall Right hip fracture Patient came in with fall [see above] Admitting hip x-ray with acute displaced right femoral neck fracture Admitting CXR with no acute findings. s/p Rt FREEDOM by Dr. Ricky Jones on 02/04/22 Pain control. PT/OT/DVT prophylaxis per Ortho. Will continue to monitor. Fever: Patient developed fever 39.6C in a.m. of 02/05 [which is POD 1 for right FREEDOM], 02/05 WBC elevated [could be due to acute stress versus undiagnosed infection] and Pro-Manuel negative. Patient had already got 2 doses of cefazolin [02/04 evening and second 4 AM on 02/05]. 02/05 urine analysis and CXR not suggestive of infection. Await 02/05 blood culture. Likely postoperative fever versus undiagnosed infection, continue with empiric Zosyn 02/05. Continue to monitor. Tylenol for fever. Viral test sent. COVID at admission was negative. ARF: Admitting creatinine of 1.48, resolved, lisinopril HCTZ was held earlier and amlodipine was initiated, continue with the same for the time being, switch back to lisinopril HCTZ likely dali. Caution with blood pressure medication during perioperative period. Minimal CPK elevation: 240 at admission, will follow CPK in a.m., statin on hold, CPK minimally uptrending. Other chronic medical conditions: History of PSVT/PAF, PVD, HLD, DM2, systolic murmur, past tobacco abuse --->> continue with/resume home meds as and when able. Sliding scale insulin. We will continue with telemetry perioperatively. DVT prophylaxis : per ortho on enoxaparin Full code Admission and Anticipated Discharge Date Admission Date: February 03, 2022 Subjective Patient seen and examined at bedside as a follow-up of hypertensive urgency and traumatic right hip fracture secondary to mechanical fall s/p repair 02/[address] Ricky Jones. Patient was lying in bed, on 2L NC O2, NAD, denies discomfort, AOx4 but appears more lethargic/slow reaction and sicker today, had elevated temperature in the morning. Infection w/u sent and empiric ATB started. Reports pain under control, pt w/ minimal appetite, will use IVF in the interim. Patient denies any headache/chest pain/palpitations/shortness of breath/cough/sore throat/belly pain/acute changes in his bowel or bladder habits/other review of symptoms. Physical Exam Physical Exam: GENERAL: drowsy/lethargic and oriented x3. NAD, on 2L NC O2. HEENT: No pallor, no icterus. Pupils equal, round and reactive to light. Oral mucosa moist. NECK: No JVD, no neck masses. HEART: S1 and S2 heard. Regular rate and rhythm. No murmur, no gallop. RESPIRATORY SYSTEM: Normal AP diameter. No accessory muscle use. No wheezing, no crackles. ABDOMEN: Soft, bowel sounds present, nontender, no distention. CENTRAL NERVOUS SYSTEM: No facial droop. Speech is clear. Obeys simple commands. Moves extremities. EXTREMITIES: No edema, no erythema seen. Distal NV status nl x RLE. Rt hip w/ clean dressing w/o soakage. Results & Data Results & Data ([facility]) Vital Signs (Past 12 Hours) Vital Signs Temp Pulse Resp BP Pulse Ox Pulse Ox O2 Del Method 02/05/22 12:22 92 02/05/22 11:44 38.1 C H 91 H 16 127/67 92 Room Air 02/05/22 11:00 95 02/05/22 07:00 02/05/22 10:07 39.1 C H 101 H 20 124/69 96 Nasal Cannula 02/05/22 09:22 106 H 22 174/78 H 97 Nasal Cannula 02/05/22 09:09 39.6 C H 104 H 22 150/73 H 90 Room Air 02/05/22 08:16 37.8 C H 67 16 149/74 H 96 Room Air 02/05/22 06:00 92 Room Air 02/05/22 05:36 Room Air 02/05/22 04:00 Room Air 02/05/22 03:00 92 02/05/22 01:37 37.0 C 77 16 106/64 93 Room Air O2 Del Method O2 Flow Rate O2 Flow Rate 02/05/22 12:22 02/05/22 11:44 02/05/22 11:00 Nasal Cannula 2 02/05/22 07:00 Room Air 02/05/22 10:07 2 02/05/22 09:22 2 02/05/22 09:09 02/05/22 08:16 02/05/22 06:00 02/05/22 05:36 02/05/22 04:00 02/05/22 03:00 Room Air 02/05/22 01:37 (1) Closed fracture of right hip Encounter type: initial encounter Qualified Code(s): S72.001A - Fracture of unspecified part of neck of right femur, initial encounter for closed fracture
[2022-02-05] MEDS: PIPERACILLIN/TAZOBACTAM 3.375 GM in DEXTROSE 5% 100 ML IV SCH (16:21)
[2022-02-05] MEDS: DIGOXIN 0.25 MG TAB PO SCH (16:21)
[2022-02-05] MEDS: oxyCODONE HCL IR 5 MG TAB (IMMEDIATE RELEASE) PO PRN (16:21)
[2022-02-05 17:20] LABS: Influenza A virus by PCR Negative (Neg); Influenza B virus by PCR Negative (Neg); RSV by PCR Negative (Neg); SARS CoV2 RNA(COVID-19) InHosp NEGATIVE (Negative)
[2022-02-05] MEDS ORDERED: NALOXONE HCL 0.4 MG/1 ML VIAL/CARP IV STA (19:50)
[2022-02-05] MEDS ORDERED: SODIUM CHLORIDE 0.9% 1000ML 1,000 ML IV ONE (19:55)
[2022-02-05] MEDS ORDERED: KETOROLAC TROMETHAMINE 15 MG/ML VIAL IV ONE (19:56)
[2022-02-05] MEDS: SENNA 8.6 MG TAB PO SCH (20:11)
[2022-02-05 20:30] LABS: Base Excess ABG 0.1 mEq/L (-9-1.8); HCO3 ABG 24 mmol/L (19-24); Oxygen Saturation ABG 97.8 % (90-95); PCO2 ABG 34 mmHg (35-46); PO2 ABG 67 mmHg (80-95); pH ABG 7.45 (7.35-7.45)
[2022-02-05 21:04] LABS: Allen Test Pos (Pos)
[2022-02-06] MEDS: PIPERACILLIN/TAZOBACTAM 3.375 GM in DEXTROSE 5% 100 ML IV SCH ×4 (00:24→23:48)
[2022-02-06] MEDS: traMADol HCL 50 MG TABLET PO PRN ×2 (03:39→11:28)
[2022-02-06 07:38] LABS: Hemoglobin 9.3 g/dl (14.0-18.0); Mean Corpuscular Hgb Conc 34.4 g/dL (32.0-36.0); Mean Corpuscular Volume 87.1 fL (80.0-100.0); Mean Platelet Volume 10.9 fL (9.4-12.4); Platelet Count 128 K/uL (130-400); RDW Coefficient of Variation 12.2 % (11.5-14.5); White Blood Count 11.17 K/ul (4.8-10.8)
[2022-02-06 07:52] LABS: BUN Creatinine Ratio 24.8 (10-20); Calcium 7.6 mg/dl (8.5-10.1); Creatinine Clr Calc Pharmacy 61.5 ml/min; Est GFR (African American) 69.3 ml/min; Est GFR (Non-African American) 59.8 ml/min; Magnesium 1.6 mg/dl (1.7-2.4); Phosphorus 2.3 mg/dl (2.5-4.9); Potassium 3.7 mmol/L (3.5-5.1)
[2022-02-06] MEDS ORDERED: SODIUM PHOSPHATE 3 MMOL/1 ML INFUSION IV STA (08:36)
--- NOTE | 2022-02-06 08:56 | Orthopedic Progress Note ---
Date of Service February 06, 2022 Assessment & Plan (1) Closed fracture of right hip: Plan: Postop day #1 right total hip arthroplasty for fracture -PT/OT: Weightbearing as tolerated with walker -AM labs: Hemoglobin dropped to 9.3 this morning, acute blood loss anemia likely due to surgical loss versus dilutional. Patient seems to be asymptomatic. Mild leukocytosis likely reactive. -Pain management as written -DVT prophylaxis: SCDs, teds, Lovenox -Discharge planning: Plan to discharge when stable as per medicine. Plan Fever has decreased postoperatively. Atelectasis is the most likely cause of his postoperative fever. We did encourage incentive spirometry yesterday and will continue to do so Admission and Anticipated Discharge Date Admission Date: February 03, 2022 Subjective Postop day #2 right total hip. He is improving. Has mild pain. Seems to be more oriented today. No other complaints. Denies chest pain, shortness of breath, headaches, dizziness, nausea/vomiting. Review of Systems Review of Systems: All systems reviewed & are unremarkable except as noted in Subjective Physical Exam Physical Exam: Right hip dressing is clean, dry, intact. Compartments are soft and nontender. No surrounding erythema. No calf tenderness. Toes are mobile. Distal pulses palpable. Leg lengths appear equal. Constitutional: WD/WN, vitals as above Results & Data ([facility]) Vital Signs (Past 12 Hours) Vital Signs Temp Pulse Pulse Resp BP BP Pulse Ox 02/06/22 08:00 37.6 C 84 16 117/66 93 02/06/22 02:49 36.8 C 75 18 105/62 95 02/06/22 03:49 95 02/06/22 03:00 02/05/22 23:00 02/05/22 22:54 36.8 C 72 18 96/56 L 95 02/05/22 22:57 79 02/05/22 22:31 02/05/22 21:00 37.8 C H Pulse Ox O2 Del Method O2 Del Method 02/06/22 08:00 Room Air 02/06/22 02:49 Room Air 02/06/22 03:49 Room Air 02/06/22 03:00 94 Room Air 02/05/22 23:00 93 Room Air 02/05/22 22:54 Room Air 02/05/22 22:57 02/05/22 22:31 Room Air 02/05/22 21:00 Diagnostic Findings Lab Results 02/03/22 02/03/22 02/03/22 Range/Units 02:00 02:00 02:00 WBC 16.74 H (4.8-10.8) K/ul RBC 4.94 (4.63-6.08) M/uL Hgb 15.0 (14.0-18.0) g/dl Hct 42.9 (40.1-51.0) % MCV 86.8 (80.0-100.0) fL MCH 30.4 (25.0-34.0) pg MCHC 35.0 (32.0-36.0) g/dL RDW Std Deviation 39.8 (36.4-46.3) fL RDW Coeff of Aleyda 12.6 (11.5-14.5) % Plt Count 222 (130-400) K/uL MPV 10.7 (9.4-12.4) fL Immature Gran % (Auto) 0.4 % Neut % (Auto) 86.8 % Lymph % (Auto) 7.0 % [place] % (Auto) 5.4 % Eos % (Auto) 0.2 % Baso % (Auto) 0.2 % Neut # (Auto) 14.52 H (1.4-6.5) K/uL Lymph # (Auto) 1.17 L (1.2-3.4) K/uL [place] # (Auto) 0.91 H (0.24-0.82) K/uL Eos # (Auto) 0.03 (0-0.50) K/uL Baso # (Auto) 0.04 (0-0.2) K/uL Immature Gran # (Auto) 0.07 H (0.00-0.02) K/uL PT 11.1 (9.0-12.0) Seconds INR 1.0 (0.9-1.1) APTT 23.4 (21.0-31.0) Seconds PTT Ratio 0.9 ABG pH (7.35-7.45) ABG pCO2 (35-46) mmHg ABG pO2 (80-95) mmHg ABG HCO3 (19-24) mmol/L ABG O2 Saturation (90-95) % ABG Base Excess (-9-1.8) mEq/L Bobo Test (Pos) Oxygen Given Sodium 137 (136-145) mmol/L Potassium 4.3 (3.5-5.1) mmol/L Chloride 101 (98-107) mmol/L Carbon Dioxide 24 (21-32) mmol/L Anion Gap 12 H (3-11) BUN 23 (6-23) mg/dl Creatinine 1.48 H (0.6-1.4) mg/dl Est Cr Clr Drug Dosing 52.7 ml/min Est GFR ( Amer) 52.1 ml/min Est GFR (Non-Af Amer) 45.0 ml/min BUN/Creatinine Ratio 15.5 (10-20) Glucose 312 H* (70-99(Fasting)) mg/dl POC Glucose (70-99) mg/dl Calcium 9.6 (8.5-10.1) mg/dl Phosphorus (2.5-4.9) mg/dl Magnesium 1.8 (1.7-2.4) mg/dl Total Bilirubin 0.6 (0.2-1.0) mg/dl AST 26 (13-39) U/L ALT 29 (7-52) U/L Alkaline Phosphatase 58 (34-104) U/L Ammonia (18-72) umol/L Total Creatine Kinase (30-223) U/L Total Protein 7.2 (6.0-8.3) gm/dl Albumin 4.3 (3.4-5.0) gm/dl Globulin 2.9 (2.5-4.0) gm/dl Albumin/Globulin Ratio 1.5 (0.9-2) Procalcitonin (0-0.5) ng/ml Urine Color Urine Appearance (Clear) Urine pH (4.5-7.5) Ur Specific [place] (1.000-1.030) Urine Protein (Negative) Urine Glucose (UA) (Negative) Urine Ketones (Negative) Urine Blood (Negative) Urine Nitrite (Negative) Urine Bilirubin (Negative) Urine Urobilinogen (Negative) Ur Leukocyte Esterase (Negative) Urine WBC (Auto) (0-5) /hpf Urine RBC (Auto) (0-4) /hpf U Hyaline Cast (Auto) (0-5) /lpf U Epithel Cells (Auto) (0-5) /lpf Urine Bacteria (Auto) (Negative) Amorphous Sediment (None Prsent) Urine Yeast Nasal Screen MRSA (PCR) (Negative) Digoxin (0.8-2.0) ng/ml SARS-CoV-2 (PCR) (Negative) Influenza Type A (PCR) (Neg) Influenza Type B (PCR) (Neg) RSV (RT-PCR) (Neg) SARS-CoV-2, RNA, NAAT (NEGATIVE) Blood Type Antibody Screen 02/03/22 02/03/22 02/03/22 Range/Units 02:00 02:00 02:00 WBC (4.8-10.8) K/ul RBC (4.63-6.08) M/uL Hgb (14.0-18.0) g/dl Hct (40.1-51.0) % MCV (80.0-100.0) fL MCH (25.0-34.0) pg MCHC (32.0-36.0) g/dL RDW Std Deviation (36.4-46.3) fL RDW Coeff of Aleyda (11.5-14.5) % Plt Count (130-400) K/uL MPV (9.4-12.4) fL Immature Gran % (Auto) % Neut % (Auto) % Lymph % (Auto) % [place] % (Auto) % Eos % (Auto) % Baso % (Auto) % Neut # (Auto) (1.4-6.5) K/uL Lymph # (Auto) (1.2-3.4) K/uL [place] # (Auto) (0.24-0.82) K/uL Eos # (Auto) (0-0.50) K/uL Baso # (Auto) (0-0.2) K/uL Immature Gran # (Auto) (0.00-0.02) K/uL PT (9.0-12.0) Seconds INR (0.9-1.1) APTT (21.0-31.0) Seconds PTT Ratio ABG pH (7.35-7.45) ABG pCO2 (35-46) mmHg ABG pO2 (80-95) mmHg ABG HCO3 (19-24) mmol/L ABG O2 Saturation (90-95) % ABG Base Excess (-9-1.8) mEq/L Bobo Test (Pos) Oxygen Given Sodium (136-145) mmol/L Potassium (3.5-5.1) mmol/L Chloride (98-107) mmol/L Carbon Dioxide (21-32) mmol/L Anion Gap (3-11) BUN (6-23) mg/dl Creatinine (0.6-1.4) mg/dl Est Cr Clr Drug Dosing ml/min Est GFR ( Amer) ml/min Est GFR (Non-Af Amer) ml/min BUN/Creatinine Ratio (10-20) Glucose (70-99(Fasting)) mg/dl POC Glucose (70-99) mg/dl Calcium (8.5-10.1) mg/dl Phosphorus (2.5-4.9) mg/dl Magnesium (1.7-2.4) mg/dl Total Bilirubin (0.2-1.0) mg/dl AST (13-39) U/L ALT (7-52) U/L Alkaline Phosphatase (34-104) U/L Ammonia (18-72) umol/L Total Creatine Kinase 240 H (30-223) U/L Total Protein (6.0-8.3) gm/dl Albumin (3.4-5.0) gm/dl Globulin (2.5-4.0) gm/dl Albumin/Globulin Ratio (0.9-2) Procalcitonin (0-0.5) ng/ml Urine Color Urine Appearance (Clear) Urine pH (4.5-7.5) Ur Specific [place] (1.000-1.030) Urine Protein (Negative) Urine Glucose (UA) (Negative) Urine Ketones (Negative) Urine Blood (Negative) Urine Nitrite (Negative) Urine Bilirubin (Negative) Urine Urobilinogen (Negative) Ur Leukocyte Esterase (Negative) Urine WBC (Auto) (0-5) /hpf Urine RBC (Auto) (0-4) /hpf U Hyaline Cast (Auto) (0-5) /lpf U Epithel Cells (Auto) (0-5) /lpf Urine Bacteria (Auto) (Negative) Amorphous Sediment (None Prsent) Urine Yeast Nasal Screen MRSA (PCR) (Negative) Digoxin 0.9 (0.8-2.0) ng/ml SARS-CoV-2 (PCR) (Negative) Influenza Type A (PCR) (Neg) Influenza Type B (PCR) (Neg) RSV (RT-PCR) (Neg) SARS-CoV-2, RNA, NAAT NEGATIVE (NEGATIVE) Blood Type Antibody Screen 02/03/22 02/03/22 02/03/22 Range/Units 02:56 04:05 05:22 WBC (4.8-10.8) K/ul RBC (4.63-6.08) M/uL Hgb (14.0-18.0) g/dl Hct (40.1-51.0) % MCV (80.0-100.0) fL MCH (25.0-34.0) pg MCHC (32.0-36.0) g/dL RDW Std Deviation (36.4-46.3) fL RDW Coeff of Aleyda (11.5-14.5) % Plt Count (130-400) K/uL MPV (9.4-12.4) fL Immature Gran % (Auto) % Neut % (Auto) % Lymph % (Auto) % [place] % (Auto) % Eos % (Auto) % Baso % (Auto) % Neut # (Auto) (1.4-6.5) K/uL Lymph # (Auto) (1.2-3.4) K/uL [place] # (Auto) (0.24-0.82) K/uL Eos # (Auto) (0-0.50) K/uL Baso # (Auto) (0-0.2) K/uL Immature Gran # (Auto) (0.00-0.02) K/uL PT (9.0-12.0) Seconds INR (0.9-1.1) APTT (21.0-31.0) Seconds PTT Ratio ABG pH (7.35-7.45) ABG pCO2 (35-46) mmHg ABG pO2 (80-95) mmHg ABG HCO3 (19-24) mmol/L ABG O2 Saturation (90-95) % ABG Base Excess (-9-1.8) mEq/L Bobo Test (Pos) Oxygen Given Sodium (136-145) mmol/L Potassium (3.5-5.1) mmol/L Chloride (98-107) mmol/L Carbon Dioxide (21-32) mmol/L Anion Gap (3-11) BUN (6-23) mg/dl Creatinine (0.6-1.4) mg/dl Est Cr Clr Drug Dosing ml/min Est GFR ( Amer) ml/min Est GFR (Non-Af Amer) ml/min BUN/Creatinine Ratio (10-20) Glucose (70-99(Fasting)) mg/dl POC Glucose 275 H (70-99) mg/dl Calcium (8.5-10.1) mg/dl Phosphorus (2.5-4.9) mg/dl Magnesium (1.7-2.4) mg/dl Total Bilirubin (0.2-1.0) mg/dl AST (13-39) U/L ALT (7-52) U/L Alkaline Phosphatase (34-104) U/L Ammonia (18-72) umol/L Total Creatine Kinase (30-223) U/L Total Protein (6.0-8.3) gm/dl Albumin (3.4-5.0) gm/dl Globulin (2.5-4.0) gm/dl Albumin/Globulin Ratio (0.9-2) Procalcitonin (0-0.5) ng/ml Urine Color Yellow Urine Appearance Clear (Clear) Urine pH 5.5 (4.5-7.5) Ur Specific [place] 1.022 (1.000-1.030) Urine Protein 1+ H (Negative) Urine Glucose (UA) 3+ H (Negative) Urine Ketones Trace H (Negative) Urine Blood 1+ H (Negative) Urine Nitrite Negative (Negative) Urine Bilirubin Negative (Negative) Urine Urobilinogen Negative (Negative) Ur Leukocyte Esterase Negative (Negative) Urine WBC (Auto) 0 (0-5) /hpf Urine RBC (Auto) 0-4 (0-4) /hpf U Hyaline Cast (Auto) 1-5 (0-5) /lpf U Epithel Cells (Auto) 5-10 H (0-5) /lpf Urine Bacteria (Auto) Negative (Negative) Amorphous Sediment (None Prsent) Urine Yeast Nasal Screen MRSA (PCR) (Negative) Digoxin (0.8-2.0) ng/ml SARS-CoV-2 (PCR) (Negative) Influenza Type A (PCR) (Neg) Influenza Type B (PCR) (Neg) RSV (RT-PCR) (Neg) SARS-CoV-2, RNA, NAAT (NEGATIVE) Blood Type A Positive Antibody Screen NEGATIVE 02/03/22 02/03/22 02/03/22 Range/Units 07:56 08:00 13:09 WBC (4.8-10.8) K/ul RBC (4.63-6.08) M/uL Hgb (14.0-18.0) g/dl Hct (40.1-51.0) % MCV (80.0-100.0) fL MCH (25.0-34.0) pg MCHC (32.0-36.0) g/dL RDW Std Deviation (36.4-46.3) fL RDW Coeff of Aleyda (11.5-14.5) % Plt Count (130-400) K/uL MPV (9.4-12.4) fL Immature Gran % (Auto) % Neut % (Auto) % Lymph % (Auto) % [place] % (Auto) % Eos % (Auto) % Baso % (Auto) % Neut # (Auto) (1.4-6.5) K/uL Lymph # (Auto) (1.2-3.4) K/uL [place] # (Auto) (0.24-0.82) K/uL Eos # (Auto) (0-0.50) K/uL Baso # (Auto) (0-0.2) K/uL Immature Gran # (Auto) (0.00-0.02) K/uL PT (9.0-12.0) Seconds INR (0.9-1.1) APTT (21.0-31.0) Seconds PTT Ratio ABG pH (7.35-7.45) ABG pCO2 (35-46) mmHg ABG pO2 (80-95) mmHg ABG HCO3 (19-24) mmol/L ABG O2 Saturation (90-95) % ABG Base Excess (-9-1.8) mEq/L Bobo Test (Pos) Oxygen Given Sodium 138 (136-145) mmol/L Potassium 3.7 (3.5-5.1) mmol/L Chloride 102 (98-107) mmol/L Carbon Dioxide 29 (21-32) mmol/L Anion Gap 7 (3-11) BUN 22 (6-23) mg/dl Creatinine 1.15 D (0.6-1.4) mg/dl Est Cr Clr Drug Dosing 67.8 ml/min Est GFR ( Amer) 70.7 ml/min Est GFR (Non-Af Amer) 61.0 ml/min BUN/Creatinine Ratio 19.1 (10-20) Glucose 223 H (70-99(Fasting)) mg/dl POC Glucose 217 H 242 H (70-99) mg/dl Calcium 9.6 (8.5-10.1) mg/dl Phosphorus (2.5-4.9) mg/dl Magnesium (1.7-2.4) mg/dl Total Bilirubin (0.2-1.0) mg/dl AST (13-39) U/L ALT (7-52) U/L Alkaline Phosphatase (34-104) U/L Ammonia (18-72) umol/L Total Creatine Kinase (30-223) U/L Total Protein (6.0-8.3) gm/dl Albumin (3.4-5.0) gm/dl Globulin (2.5-4.0) gm/dl Albumin/Globulin Ratio (0.9-2) Procalcitonin (0-0.5) ng/ml Urine Color Urine Appearance (Clear) Urine pH (4.5-7.5) Ur Specific [place] (1.000-1.030) Urine Protein (Negative) Urine Glucose (UA) (Negative) Urine Ketones (Negative) Urine Blood (Negative) Urine Nitrite (Negative) Urine Bilirubin (Negative) Urine Urobilinogen (Negative) Ur Leukocyte Esterase (Negative) Urine WBC (Auto) (0-5) /hpf Urine RBC (Auto) (0-4) /hpf U Hyaline Cast (Auto) (0-5) /lpf U Epithel Cells (Auto) (0-5) /lpf Urine Bacteria (Auto) (Negative) Amorphous Sediment (None Prsent) Urine Yeast Nasal Screen MRSA (PCR) (Negative) Digoxin (0.8-2.0) ng/ml SARS-CoV-2 (PCR) (Negative) Influenza Type A (PCR) (Neg) Influenza Type B (PCR) (Neg) RSV (RT-PCR) (Neg) SARS-CoV-2, RNA, NAAT (NEGATIVE) Blood Type Antibody Screen 02/03/22 02/03/22 02/04/22 Range/Units 17:10 20:11 00:10 WBC (4.8-10.8) K/ul RBC (4.63-6.08) M/uL Hgb (14.0-18.0) g/dl Hct (40.1-51.0) % MCV (80.0-100.0) fL MCH (25.0-34.0) pg MCHC (32.0-36.0) g/dL RDW Std Deviation (36.4-46.3) fL RDW Coeff of Aleyda (11.5-14.5) % Plt Count (130-400) K/uL MPV (9.4-12.4) fL Immature Gran % (Auto) % Neut % (Auto) % Lymph % (Auto) % [place] % (Auto) % Eos % (Auto) % Baso % (Auto) % Neut # (Auto) (1.4-6.5) K/uL Lymph # (Auto) (1.2-3.4) K/uL [place] # (Auto) (0.24-0.82) K/uL Eos # (Auto) (0-0.50) K/uL Baso # (Auto) (0-0.2) K/uL Immature Gran # (Auto) (0.00-0.02) K/uL PT (9.0-12.0) Seconds INR (0.9-1.1) APTT (21.0-31.0) Seconds PTT Ratio ABG pH (7.35-7.45) ABG pCO2 (35-46) mmHg ABG pO2 (80-95) mmHg ABG HCO3 (19-24) mmol/L ABG O2 Saturation (90-95) % ABG Base Excess (-9-1.8) mEq/L Bobo Test (Pos) Oxygen Given Sodium (136-145) mmol/L Potassium (3.5-5.1) mmol/L Chloride (98-107) mmol/L Carbon Dioxide (21-32) mmol/L Anion Gap (3-11) BUN (6-23) mg/dl Creatinine (0.6-1.4) mg/dl Est Cr Clr Drug Dosing ml/min Est GFR ( Amer) ml/min Est GFR (Non-Af Amer) ml/min BUN/Creatinine Ratio (10-20) Glucose (70-99(Fasting)) mg/dl POC Glucose 232 H 238 H 202 H (70-99) mg/dl Calcium (8.5-10.1) mg/dl Phosphorus (2.5-4.9) mg/dl Magnesium (1.7-2.4) mg/dl Total Bilirubin (0.2-1.0) mg/dl AST (13-39) U/L ALT (7-52) U/L Alkaline Phosphatase (34-104) U/L Ammonia (18-72) umol/L Total Creatine Kinase (30-223) U/L Total Protein (6.0-8.3) gm/dl Albumin (3.4-5.0) gm/dl Globulin (2.5-4.0) gm/dl Albumin/Globulin Ratio (0.9-2) Procalcitonin (0-0.5) ng/ml Urine Color Urine Appearance (Clear) Urine pH (4.5-7.5) Ur Specific [place] (1.000-1.030) Urine Protein (Negative) Urine Glucose (UA) (Negative) Urine Ketones (Negative) Urine Blood (Negative) Urine Nitrite (Negative) Urine Bilirubin (Negative) Urine Urobilinogen (Negative) Ur Leukocyte Esterase (Negative) Urine WBC (Auto) (0-5) /hpf Urine RBC (Auto) (0-4) /hpf U Hyaline Cast (Auto) (0-5) /lpf U Epithel Cells (Auto) (0-5) /lpf Urine Bacteria (Auto) (Negative) Amorphous Sediment (None Prsent) Urine Yeast Nasal Screen MRSA (PCR) (Negative) Digoxin (0.8-2.0) ng/ml SARS-CoV-2 (PCR) (Negative) Influenza Type A (PCR) (Neg) Influenza Type B (PCR) (Neg) RSV (RT-PCR) (Neg) SARS-CoV-2, RNA, NAAT (NEGATIVE) Blood Type Antibody Screen 02/04/22 02/04/22 02/04/22 Range/Units 06:40 07:29 07:29 WBC 11.25 H (4.8-10.8) K/ul RBC 4.20 L (4.63-6.08) M/uL Hgb 12.8 L (14.0-18.0) g/dl Hct 37.1 L (40.1-51.0) % MCV 88.3 (80.0-100.0) fL MCH 30.5 (25.0-34.0) pg MCHC 34.5 (32.0-36.0) g/dL RDW Std Deviation 40.6 (36.4-46.3) fL RDW Coeff of Aleyda 12.5 (11.5-14.5) % Plt Count 166 (130-400) K/uL MPV 10.4 (9.4-12.4) fL Immature Gran % (Auto) 0.4 % Neut % (Auto) 67.3 % Lymph % (Auto) 21.4 % [place] % (Auto) 8.6 % Eos % (Auto) 2.0 % Baso % (Auto) 0.3 % Neut # (Auto) 7.58 H (1.4-6.5) K/uL Lymph # (Auto) 2.41 (1.2-3.4) K/uL [place] # (Auto) 0.97 H (0.24-0.82) K/uL Eos # (Auto) 0.22 (0-0.50) K/uL Baso # (Auto) 0.03 (0-0.2) K/uL Immature Gran # (Auto) 0.04 H (0.00-0.02) K/uL PT (9.0-12.0) Seconds INR (0.9-1.1) APTT (21.0-31.0) Seconds PTT Ratio ABG pH (7.35-7.45) ABG pCO2 (35-46) mmHg ABG pO2 (80-95) mmHg ABG HCO3 (19-24) mmol/L ABG O2 Saturation (90-95) % ABG Base Excess (-9-1.8) mEq/L Bobo Test (Pos) Oxygen Given Sodium 135 L (136-145) mmol/L Potassium 3.6 (3.5-5.1) mmol/L Chloride 100 (98-107) mmol/L Carbon Dioxide 28 (21-32) mmol/L Anion Gap 7 (3-11) BUN 17 (6-23) mg/dl Creatinine 1.05 (0.6-1.4) mg/dl Est Cr Clr Drug Dosing 74.2 ml/min Est GFR ( Amer) 79.0 ml/min Est GFR (Non-Af Amer) 68.1 ml/min BUN/Creatinine Ratio 16.2 (10-20) Glucose 223 H (70-99(Fasting)) mg/dl POC Glucose 225 H (70-99) mg/dl Calcium 8.4 L (8.5-10.1) mg/dl Phosphorus (2.5-4.9) mg/dl Magnesium (1.7-2.4) mg/dl Total Bilirubin (0.2-1.0) mg/dl AST (13-39) U/L ALT (7-52) U/L Alkaline Phosphatase (34-104) U/L Ammonia (18-72) umol/L Total Creatine Kinase 607 H (30-223) U/L Total Protein (6.0-8.3) gm/dl Albumin (3.4-5.0) gm/dl Globulin (2.5-4.0) gm/dl Albumin/Globulin Ratio (0.9-2) Procalcitonin (0-0.5) ng/ml Urine Color Urine Appearance (Clear) Urine pH (4.5-7.5) Ur Specific [place] (1.000-1.030) Urine Protein (Negative) Urine Glucose (UA) (Negative) Urine Ketones (Negative) Urine Blood (Negative) Urine Nitrite (Negative) Urine Bilirubin (Negative) Urine Urobilinogen (Negative) Ur Leukocyte Esterase (Negative) Urine WBC (Auto) (0-5) /hpf Urine RBC (Auto) (0-4) /hpf U Hyaline Cast (Auto) (0-5) /lpf U Epithel Cells (Auto) (0-5) /lpf Urine Bacteria (Auto) (Negative) Amorphous Sediment (None Prsent) Urine Yeast Nasal Screen MRSA (PCR) (Negative) Digoxin (0.8-2.0) ng/ml SARS-CoV-2 (PCR) (Negative) Influenza Type A (PCR) (Neg) Influenza Type B (PCR) (Neg) RSV (RT-PCR) (Neg) SARS-CoV-2, RNA, NAAT (NEGATIVE) Blood Type Antibody Screen 02/04/22 02/04/22 02/04/22 Range/Units 11:47 17:46 22:18 WBC (4.8-10.8) K/ul RBC (4.63-6.08) M/uL Hgb (14.0-18.0) g/dl Hct (40.1-51.0) % MCV (80.0-100.0) fL MCH (25.0-34.0) pg MCHC (32.0-36.0) g/dL RDW Std Deviation (36.4-46.3) fL RDW Coeff of Aleyda (11.5-14.5) % Plt Count (130-400) K/uL MPV (9.4-12.4) fL Immature Gran % (Auto) % Neut % (Auto) % Lymph % (Auto) % [place] % (Auto) % Eos % (Auto) % Baso % (Auto) % Neut # (Auto) (1.4-6.5) K/uL Lymph # (Auto) (1.2-3.4) K/uL [place] # (Auto) (0.24-0.82) K/uL Eos # (Auto) (0-0.50) K/uL Baso # (Auto) (0-0.2) K/uL Immature Gran # (Auto) (0.00-0.02) K/uL PT (9.0-12.0) Seconds INR (0.9-1.1) APTT (21.0-31.0) Seconds PTT Ratio ABG pH (7.35-7.45) ABG pCO2 (35-46) mmHg ABG pO2 (80-95) mmHg ABG HCO3 (19-24) mmol/L ABG O2 Saturation (90-95) % ABG Base Excess (-9-1.8) mEq/L Bobo Test (Pos) Oxygen Given Sodium (136-145) mmol/L Potassium (3.5-5.1) mmol/L Chloride (98-107) mmol/L Carbon Dioxide (21-32) mmol/L Anion Gap (3-11) BUN (6-23) mg/dl Creatinine (0.6-1.4) mg/dl Est Cr Clr Drug Dosing ml/min Est GFR ( Amer) ml/min Est GFR (Non-Af Amer) ml/min BUN/Creatinine Ratio (10-20) Glucose (70-99(Fasting)) mg/dl POC Glucose 175 H 212 H 198 H (70-99) mg/dl Calcium (8.5-10.1) mg/dl Phosphorus (2.5-4.9) mg/dl Magnesium (1.7-2.4) mg/dl Total Bilirubin (0.2-1.0) mg/dl AST (13-39) U/L ALT (7-52) U/L Alkaline Phosphatase (34-104) U/L Ammonia (18-72) umol/L Total Creatine Kinase (30-223) U/L Total Protein (6.0-8.3) gm/dl Albumin (3.4-5.0) gm/dl Globulin (2.5-4.0) gm/dl Albumin/Globulin Ratio (0.9-2) Procalcitonin (0-0.5) ng/ml Urine Color Urine Appearance (Clear) Urine pH (4.5-7.5) Ur Specific [place] (1.000-1.030) Urine Protein (Negative) Urine Glucose (UA) (Negative) Urine Ketones (Negative) Urine Blood (Negative) Urine Nitrite (Negative) Urine Bilirubin (Negative) Urine Urobilinogen (Negative) Ur Leukocyte Esterase (Negative) Urine WBC (Auto) (0-5) /hpf Urine RBC (Auto) (0-4) /hpf U Hyaline Cast (Auto) (0-5) /lpf U Epithel Cells (Auto) (0-5) /lpf Urine Bacteria (Auto) (Negative) Amorphous Sediment (None Prsent) Urine Yeast Nasal Screen MRSA (PCR) (Negative) Digoxin (0.8-2.0) ng/ml SARS-CoV-2 (PCR) (Negative) Influenza Type A (PCR) (Neg) Influenza Type B (PCR) (Neg) RSV (RT-PCR) (Neg) SARS-CoV-2, RNA, NAAT (NEGATIVE) Blood Type Antibody Screen 02/04/22 02/05/22 02/05/22 Range/Units 23:24 07:45 07:56 WBC 14.86 H (4.8-10.8) K/ul RBC 4.21 L (4.63-6.08) M/uL Hgb 12.7 L (14.0-18.0) g/dl Hct 37.6 L (40.1-51.0) % MCV 89.3 (80.0-100.0) fL MCH 30.2 (25.0-34.0) pg MCHC 33.8 (32.0-36.0) g/dL RDW Std Deviation 40.1 (36.4-46.3) fL RDW Coeff of Aleyda 12.2 (11.5-14.5) % Plt Count 170 (130-400) K/uL MPV 11.4 (9.4-12.4) fL Immature Gran % (Auto) 0.4 % Neut % (Auto) 86.2 % Lymph % (Auto) 6.3 % [place] % (Auto) 6.9 % Eos % (Auto) 0.1 % Baso % (Auto) 0.1 % Neut # (Auto) 12.80 H (1.4-6.5) K/uL Lymph # (Auto) 0.94 L (1.2-3.4) K/uL [place] # (Auto) 1.02 H (0.24-0.82) K/uL Eos # (Auto) 0.02 (0-0.50) K/uL Baso # (Auto) 0.02 (0-0.2) K/uL Immature Gran # (Auto) 0.06 H (0.00-0.02) K/uL PT (9.0-12.0) Seconds INR (0.9-1.1) APTT (21.0-31.0) Seconds PTT Ratio ABG pH (7.35-7.45) ABG pCO2 (35-46) mmHg ABG pO2 (80-95) mmHg ABG HCO3 (19-24) mmol/L ABG O2 Saturation (90-95) % ABG Base Excess (-9-1.8) mEq/L Bobo Test (Pos) Oxygen Given Sodium (136-145) mmol/L Potassium (3.5-5.1) mmol/L Chloride (98-107) mmol/L Carbon Dioxide (21-32) mmol/L Anion Gap (3-11) BUN (6-23) mg/dl Creatinine (0.6-1.4) mg/dl Est Cr Clr Drug Dosing ml/min Est GFR ( Amer) ml/min Est GFR (Non-Af Amer) ml/min BUN/Creatinine Ratio (10-20) Glucose (70-99(Fasting)) mg/dl POC Glucose 230 H 217 H (70-99) mg/dl Calcium (8.5-10.1) mg/dl Phosphorus (2.5-4.9) mg/dl Magnesium (1.7-2.4) mg/dl Total Bilirubin (0.2-1.0) mg/dl AST (13-39) U/L ALT (7-52) U/L Alkaline Phosphatase (34-104) U/L Ammonia (18-72) umol/L Total Creatine Kinase (30-223) U/L Total Protein (6.0-8.3) gm/dl Albumin (3.4-5.0) gm/dl Globulin (2.5-4.0) gm/dl Albumin/Globulin Ratio (0.9-2) Procalcitonin (0-0.5) ng/ml Urine Color Urine Appearance (Clear) Urine pH (4.5-7.5) Ur Specific [place] (1.000-1.030) Urine Protein (Negative) Urine Glucose (UA) (Negative) Urine Ketones (Negative) Urine Blood (Negative) Urine Nitrite (Negative) Urine Bilirubin (Negative) Urine Urobilinogen (Negative) Ur Leukocyte Esterase (Negative) Urine WBC (Auto) (0-5) /hpf Urine RBC (Auto) (0-4) /hpf U Hyaline Cast (Auto) (0-5) /lpf U Epithel Cells (Auto) (0-5) /lpf Urine Bacteria (Auto) (Negative) Amorphous Sediment (None Prsent) Urine Yeast Nasal Screen MRSA (PCR) (Negative) Digoxin (0.8-2.0) ng/ml SARS-CoV-2 (PCR) (Negative) Influenza Type A (PCR) (Neg) Influenza Type B (PCR) (Neg) RSV (RT-PCR) (Neg) SARS-CoV-2, RNA, NAAT (NEGATIVE) Blood Type Antibody Screen 02/05/22 02/05/22 02/05/22 Range/Units 07:56 09:29 10:12 WBC (4.8-10.8) K/ul RBC (4.63-6.08) M/uL Hgb (14.0-18.0) g/dl Hct (40.1-51.0) % MCV (80.0-100.0) fL MCH (25.0-34.0) pg MCHC (32.0-36.0) g/dL RDW Std Deviation (36.4-46.3) fL RDW Coeff of Aleyda (11.5-14.5) % Plt Count (130-400) K/uL MPV (9.4-12.4) fL Immature Gran % (Auto) % Neut % (Auto) % Lymph % (Auto) % [place] % (Auto) % Eos % (Auto) % Baso % (Auto) % Neut # (Auto) (1.4-6.5) K/uL Lymph # (Auto) (1.2-3.4) K/uL [place] # (Auto) (0.24-0.82) K/uL Eos # (Auto) (0-0.50) K/uL Baso # (Auto) (0-0.2) K/uL Immature Gran # (Auto) (0.00-0.02) K/uL PT (9.0-12.0) Seconds INR (0.9-1.1) APTT (21.0-31.0) Seconds PTT Ratio ABG pH (7.35-7.45) ABG pCO2 (35-46) mmHg ABG pO2 (80-95) mmHg ABG HCO3 (19-24) mmol/L ABG O2 Saturation (90-95) % ABG Base Excess (-9-1.8) mEq/L Bobo Test (Pos) Oxygen Given Sodium 136 (136-145) mmol/L Potassium 4.6 D (3.5-5.1) mmol/L Chloride 102 (98-107) mmol/L Carbon Dioxide 26 (21-32) mmol/L Anion Gap 8 (3-11) BUN 21 (6-23) mg/dl Creatinine 0.93 (0.6-1.4) mg/dl Est Cr Clr Drug Dosing 77.3 ml/min Est GFR ( Amer) 91.5 ml/min Est GFR (Non-Af Amer) 78.9 ml/min BUN/Creatinine Ratio 22.6 H (10-20) Glucose 224 H (70-99(Fasting)) mg/dl POC Glucose (70-99) mg/dl Calcium 8.5 (8.5-10.1) mg/dl Phosphorus 3.6 (2.5-4.9) mg/dl Magnesium 1.7 (1.7-2.4) mg/dl Total Bilirubin (0.2-1.0) mg/dl AST (13-39) U/L ALT (7-52) U/L Alkaline Phosphatase (34-104) U/L Ammonia (18-72) umol/L Total Creatine Kinase 838 H (30-223) U/L Total Protein (6.0-8.3) gm/dl Albumin (3.4-5.0) gm/dl Globulin (2.5-4.0) gm/dl Albumin/Globulin Ratio (0.9-2) Procalcitonin 0.12 (0-0.5) ng/ml Urine Color Yellow Urine Appearance Clear (Clear) Urine pH 5.5 (4.5-7.5) Ur Specific [place] 1.026 (1.000-1.030) Urine Protein 1+ H (Negative) Urine Glucose (UA) 2+ H (Negative) Urine Ketones 1+ H (Negative) Urine Blood 2+ H (Negative) Urine Nitrite Negative (Negative) Urine Bilirubin Negative (Negative) Urine Urobilinogen Negative (Negative) Ur Leukocyte Esterase Negative (Negative) Urine WBC (Auto) 1-5 (0-5) /hpf Urine RBC (Auto) 10-30 H (0-4) /hpf U Hyaline Cast (Auto) 5-10 H (0-5) /lpf U Epithel Cells (Auto) 10-20 H (0-5) /lpf Urine Bacteria (Auto) Negative (Negative) Amorphous Sediment Present A (None Prsent) Urine Yeast Not Reportable Nasal Screen MRSA (PCR) (Negative) Digoxin (0.8-2.0) ng/ml SARS-CoV-2 (PCR) (Negative) Influenza Type A (PCR) (Neg) Influenza Type B (PCR) (Neg) RSV (RT-PCR) (Neg) SARS-CoV-2, RNA, NAAT (NEGATIVE) Blood Type Antibody Screen 02/05/22 02/05/22 02/05/22 Range/Units 10:12 11:57 15:15 WBC (4.8-10.8) K/ul RBC (4.63-6.08) M/uL Hgb (14.0-18.0) g/dl Hct (40.1-51.0) % MCV (80.0-100.0) fL MCH (25.0-34.0) pg MCHC (32.0-36.0) g/dL RDW Std Deviation (36.4-46.3) fL RDW Coeff of Aleyda (11.5-14.5) % Plt Count (130-400) K/uL MPV (9.4-12.4) fL Immature Gran % (Auto) % Neut % (Auto) % Lymph % (Auto) % [place] % (Auto) % Eos % (Auto) % Baso % (Auto) % Neut # (Auto) (1.4-6.5) K/uL Lymph # (Auto) (1.2-3.4) K/uL [place] # (Auto) (0.24-0.82) K/uL Eos # (Auto) (0-0.50) K/uL Baso # (Auto) (0-0.2) K/uL Immature Gran # (Auto) (0.00-0.02) K/uL PT (9.0-12.0) Seconds INR (0.9-1.1) APTT (21.0-31.0) Seconds PTT Ratio ABG pH (7.35-7.45) ABG pCO2 (35-46) mmHg ABG pO2 (80-95) mmHg ABG HCO3 (19-24) mmol/L ABG O2 Saturation (90-95) % ABG Base Excess (-9-1.8) mEq/L Bobo Test (Pos) Oxygen Given Sodium (136-145) mmol/L Potassium (3.5-5.1) mmol/L Chloride (98-107) mmol/L Carbon Dioxide (21-32) mmol/L Anion Gap (3-11) BUN (6-23) mg/dl Creatinine (0.6-1.4) mg/dl Est Cr Clr Drug Dosing ml/min Est GFR ( Amer) ml/min Est GFR (Non-Af Amer) ml/min BUN/Creatinine Ratio (10-20) Glucose (70-99(Fasting)) mg/dl POC Glucose 201 H (70-99) mg/dl Calcium (8.5-10.1) mg/dl Phosphorus (2.5-4.9) mg/dl Magnesium (1.7-2.4) mg/dl Total Bilirubin (0.2-1.0) mg/dl AST (13-39) U/L ALT (7-52) U/L Alkaline Phosphatase (34-104) U/L Ammonia (18-72) umol/L Total Creatine Kinase (30-223) U/L Total Protein (6.0-8.3) gm/dl Albumin (3.4-5.0) gm/dl Globulin (2.5-4.0) gm/dl Albumin/Globulin Ratio (0.9-2) Procalcitonin (0-0.5) ng/ml Urine Color Urine Appearance (Clear) Urine pH (4.5-7.5) Ur Specific [place] (1.000-1.030) Urine Protein (Negative) Urine Glucose (UA) (Negative) Urine Ketones (Negative) Urine Blood (Negative) Urine Nitrite (Negative) Urine Bilirubin (Negative) Urine Urobilinogen (Negative) Ur Leukocyte Esterase (Negative) Urine WBC (Auto) (0-5) /hpf Urine RBC (Auto) (0-4) /hpf U Hyaline Cast (Auto) (0-5) /lpf U Epithel Cells (Auto) (0-5) /lpf Urine Bacteria (Auto) (Negative) Amorphous Sediment (None Prsent) Urine Yeast Nasal Screen MRSA (PCR) Negative (Negative) Digoxin (0.8-2.0) ng/ml SARS-CoV-2 (PCR) NEGATIVE (Negative) Influenza Type A (PCR) Negative (Neg) Influenza Type B (PCR) Negative (Neg) RSV (RT-PCR) Negative (Neg) SARS-CoV-2, RNA, NAAT (NEGATIVE) Blood Type Antibody Screen 02/05/22 02/05/22 02/05/22 Range/Units 16:52 19:59 20:15 WBC (4.8-10.8) K/ul RBC (4.63-6.08) M/uL Hgb (14.0-18.0) g/dl Hct (40.1-51.0) % MCV (80.0-100.0) fL MCH (25.0-34.0) pg MCHC (32.0-36.0) g/dL RDW Std Deviation (36.4-46.3) fL RDW Coeff of Aleyda (11.5-14.5) % Plt Count (130-400) K/uL MPV (9.4-12.4) fL Immature Gran % (Auto) % Neut % (Auto) % Lymph % (Auto) % [place] % (Auto) % Eos % (Auto) % Baso % (Auto) % Neut # (Auto) (1.4-6.5) K/uL Lymph # (Auto) (1.2-3.4) K/uL [place] # (Auto) (0.24-0.82) K/uL Eos # (Auto) (0-0.50) K/uL Baso # (Auto) (0-0.2) K/uL Immature Gran # (Auto) (0.00-0.02) K/uL PT (9.0-12.0) Seconds INR (0.9-1.1) APTT (21.0-31.0) Seconds PTT Ratio ABG pH (7.35-7.45) ABG pCO2 (35-46) mmHg ABG pO2 (80-95) mmHg ABG HCO3 (19-24) mmol/L ABG O2 Saturation (90-95) % ABG Base Excess (-9-1.8) mEq/L Bobo Test (Pos) Oxygen Given Sodium (136-145) mmol/L Potassium (3.5-5.1) mmol/L Chloride (98-107) mmol/L Carbon Dioxide (21-32) mmol/L Anion Gap (3-11) BUN (6-23) mg/dl Creatinine (0.6-1.4) mg/dl Est Cr Clr Drug Dosing ml/min Est GFR ( Amer) ml/min Est GFR (Non-Af Amer) ml/min BUN/Creatinine Ratio (10-20) Glucose (70-99(Fasting)) mg/dl POC Glucose 263 H 263 H (70-99) mg/dl Calcium (8.5-10.1) mg/dl Phosphorus (2.5-4.9) mg/dl Magnesium (1.7-2.4) mg/dl Total Bilirubin (0.2-1.0) mg/dl AST (13-39) U/L ALT (7-52) U/L Alkaline Phosphatase (34-104) U/L Ammonia 41.0 (18-72) umol/L Total Creatine Kinase (30-223) U/L Total Protein (6.0-8.3) gm/dl Albumin (3.4-5.0) gm/dl Globulin (2.5-4.0) gm/dl Albumin/Globulin Ratio (0.9-2) Procalcitonin (0-0.5) ng/ml Urine Color Urine Appearance (Clear) Urine pH (4.5-7.5) Ur Specific [place] (1.000-1.030) Urine Protein (Negative) Urine Glucose (UA) (Negative) Urine Ketones (Negative) Urine Blood (Negative) Urine Nitrite (Negative) Urine Bilirubin (Negative) Urine Urobilinogen (Negative) Ur Leukocyte Esterase (Negative) Urine WBC (Auto) (0-5) /hpf Urine RBC (Auto) (0-4) /hpf U Hyaline Cast (Auto) (0-5) /lpf U Epithel Cells (Auto) (0-5) /lpf Urine Bacteria (Auto) (Negative) Amorphous Sediment (None Prsent) Urine Yeast Nasal Screen MRSA (PCR) (Negative) Digoxin (0.8-2.0) ng/ml SARS-CoV-2 (PCR) (Negative) Influenza Type A (PCR) (Neg) Influenza Type B (PCR) (Neg) RSV (RT-PCR) (Neg) SARS-CoV-2, RNA, NAAT (NEGATIVE) Blood Type Antibody Screen 02/05/22 02/05/22 02/06/22 Range/Units 20:15 20:15 07:13 WBC 11.17 H (4.8-10.8) K/ul RBC 3.10 L (4.63-6.08) M/uL Hgb 9.3 L D (14.0-18.0) g/dl Hct 27.0 L (40.1-51.0) % MCV 87.1 (80.0-100.0) fL MCH 30.0 (25.0-34.0) pg MCHC 34.4 (32.0-36.0) g/dL RDW Std Deviation 39.0 (36.4-46.3) fL RDW Coeff of Aleyda 12.2 (11.5-14.5) % Plt Count 128 L (130-400) K/uL MPV 10.9 (9.4-12.4) fL Immature Gran % (Auto) % Neut % (Auto) % Lymph % (Auto) % [place] % (Auto) % Eos % (Auto) % Baso % (Auto) % Neut # (Auto) (1.4-6.5) K/uL Lymph # (Auto) (1.2-3.4) K/uL [place] # (Auto) (0.24-0.82) K/uL Eos # (Auto) (0-0.50) K/uL Baso # (Auto) (0-0.2) K/uL Immature Gran # (Auto) (0.00-0.02) K/uL PT (9.0-12.0) Seconds INR (0.9-1.1) APTT (21.0-31.0) Seconds PTT Ratio ABG pH 7.45 (7.35-7.45) ABG pCO2 34 L (35-46) mmHg ABG pO2 67 L (80-95) mmHg ABG HCO3 24 (19-24) mmol/L ABG O2 Saturation 97.8 H (90-95) % ABG Base Excess 0.1 (-9-1.8) mEq/L Bobo Test Pos (Pos) Oxygen Given 2 Sodium (136-145) mmol/L Potassium (3.5-5.1) mmol/L Chloride (98-107) mmol/L Carbon Dioxide (21-32) mmol/L Anion Gap (3-11) BUN (6-23) mg/dl Creatinine (0.6-1.4) mg/dl Est Cr Clr Drug Dosing ml/min Est GFR ( Amer) ml/min Est GFR (Non-Af Amer) ml/min BUN/Creatinine Ratio (10-20) Glucose (70-99(Fasting)) mg/dl POC Glucose (70-99) mg/dl Calcium (8.5-10.1) mg/dl Phosphorus (2.5-4.9) mg/dl Magnesium (1.7-2.4) mg/dl Total Bilirubin (0.2-1.0) mg/dl AST (13-39) U/L ALT (7-52) U/L Alkaline Phosphatase (34-104) U/L Ammonia (18-72) umol/L Total Creatine Kinase (30-223) U/L Total Protein (6.0-8.3) gm/dl Albumin (3.4-5.0) gm/dl Globulin (2.5-4.0) gm/dl Albumin/Globulin Ratio (0.9-2) Procalcitonin (0-0.5) ng/ml Urine Color Urine Appearance (Clear) Urine pH (4.5-7.5) Ur Specific [place] (1.000-1.030) Urine Protein (Negative) Urine Glucose (UA) (Negative) Urine Ketones (Negative) Urine Blood (Negative) Urine Nitrite (Negative) Urine Bilirubin (Negative) Urine Urobilinogen (Negative) Ur Leukocyte Esterase (Negative) Urine WBC (Auto) (0-5) /hpf Urine RBC (Auto) (0-4) /hpf U Hyaline Cast (Auto) (0-5) /lpf U Epithel Cells (Auto) (0-5) /lpf Urine Bacteria (Auto) (Negative) Amorphous Sediment (None Prsent) Urine Yeast Nasal Screen MRSA (PCR) (Negative) Digoxin 1.6 (0.8-2.0) ng/ml SARS-CoV-2 (PCR) (Negative) Influenza Type A (PCR) (Neg) Influenza Type B (PCR) (Neg) RSV (RT-PCR) (Neg) SARS-CoV-2, RNA, NAAT (NEGATIVE) Blood Type Antibody Screen 02/06/22 02/06/22 Range/Units 07:13 07:32 WBC (4.8-10.8) K/ul RBC (4.63-6.08) M/uL Hgb (14.0-18.0) g/dl Hct (40.1-51.0) % MCV (80.0-100.0) fL MCH (25.0-34.0) pg MCHC (32.0-36.0) g/dL RDW Std Deviation (36.4-46.3) fL RDW Coeff of Aleyda (11.5-14.5) % Plt Count (130-400) K/uL MPV (9.4-12.4) fL Immature Gran % (Auto) % Neut % (Auto) % Lymph % (Auto) % [place] % (Auto) % Eos % (Auto) % Baso % (Auto) % Neut # (Auto) (1.4-6.5) K/uL Lymph # (Auto) (1.2-3.4) K/uL [place] # (Auto) (0.24-0.82) K/uL Eos # (Auto) (0-0.50) K/uL Baso # (Auto) (0-0.2) K/uL Immature Gran # (Auto) (0.00-0.02) K/uL PT (9.0-12.0) Seconds INR (0.9-1.1) APTT (21.0-31.0) Seconds PTT Ratio ABG pH (7.35-7.45) ABG pCO2 (35-46) mmHg ABG pO2 (80-95) mmHg ABG HCO3 (19-24) mmol/L ABG O2 Saturation (90-95) % ABG Base Excess (-9-1.8) mEq/L Bobo Test (Pos) Oxygen Given Sodium 133 L (136-145) mmol/L Potassium 3.7 (3.5-5.1) mmol/L Chloride 102 (98-107) mmol/L Carbon Dioxide 26 (21-32) mmol/L Anion Gap 5 (3-11) BUN 29 H (6-23) mg/dl Creatinine 1.17 (0.6-1.4) mg/dl Est Cr Clr Drug Dosing 61.5 ml/min Est GFR ( Amer) 69.3 ml/min Est GFR (Non-Af Amer) 59.8 ml/min BUN/Creatinine Ratio 24.8 H (10-20) Glucose 204 H (70-99(Fasting)) mg/dl POC Glucose 222 H (70-99) mg/dl Calcium 7.6 L (8.5-10.1) mg/dl Phosphorus 2.3 L D (2.5-4.9) mg/dl Magnesium 1.6 L (1.7-2.4) mg/dl Total Bilirubin (0.2-1.0) mg/dl AST (13-39) U/L ALT (7-52) U/L Alkaline Phosphatase (34-104) U/L Ammonia (18-72) umol/L Total Creatine Kinase 500 H (30-223) U/L Total Protein (6.0-8.3) gm/dl Albumin (3.4-5.0) gm/dl Globulin (2.5-4.0) gm/dl Albumin/Globulin Ratio (0.9-2) Procalcitonin (0-0.5) ng/ml Urine Color Urine Appearance (Clear) Urine pH (4.5-7.5) Ur Specific [place] (1.000-1.030) Urine Protein (Negative) Urine Glucose (UA) (Negative) Urine Ketones (Negative) Urine Blood (Negative) Urine Nitrite (Negative) Urine Bilirubin (Negative) Urine Urobilinogen (Negative) Ur Leukocyte Esterase (Negative) Urine WBC (Auto) (0-5) /hpf Urine RBC (Auto) (0-4) /hpf U Hyaline Cast (Auto) (0-5) /lpf U Epithel Cells (Auto) (0-5) /lpf Urine Bacteria (Auto) (Negative) Amorphous Sediment (None Prsent) Urine Yeast Nasal Screen MRSA (PCR) (Negative) Digoxin (0.8-2.0) ng/ml SARS-CoV-2 (PCR) (Negative) Influenza Type A (PCR) (Neg) Influenza Type B (PCR) (Neg) RSV (RT-PCR) (Neg) SARS-CoV-2, RNA, NAAT (NEGATIVE) Blood Type Antibody Screen (1) Closed fracture of right hip Encounter type: initial encounter Qualified Code(s): S72.001A - Fracture of unspecified part of neck of right femur, initial encounter for closed fracture
[2022-02-06] MEDS ORDERED: SODIUM PHOSPHATE 15 MMOL in SODIUM CHLORIDE 0.9% 250 ML IV ONE (09:00)
[2022-02-06] MEDS: amLODIPine BESYLATE 5 MG TAB PO SCH (09:23)
[2022-02-06] MEDS: LANTUS PER UNIT CHARGE SQ SCH (09:23)
[2022-02-06] MEDS: MAGNESIUM SULFATE / D5W 1 GM/100 ML BAG IV SCH ×2 (09:23→11:29)
[2022-02-06] MEDS: MULTIVITAMIN TAB PO SCH (09:23)
[2022-02-06] MEDS: INSULIN ASPART PER UNIT SC SCH ×4 (09:24→21:01)
[2022-02-06] MEDS: ENOXAPARIN INJ 40 MG/0.4 ML SYR SQ SCH (09:24)
[2022-02-06] MEDS: DOCUSATE SODIUM 100 MG CAP PO SCH ×2 (09:25→20:39)
[2022-02-06 14:09] LABS: Hematocrit (blood only) 25.2 % (40.1-51.0); Hemoglobin 8.8 g/dl (14.0-18.0)
--- NOTE | 2022-02-06 15:33 | Hospitalist Progress Note ---
Date of Service February 06, 2022 Assessment & Plan (1) Closed fracture of right hip: Plan 76-year-old male with PMH of PSVT/PAF, PVD, HTN, HLD, DM2, past tobacco abuse who presented to the ED 02/03 after mechanical fall while shower and inflicted right hip injury, denies loss of consciousness/head trauma/chest pain/shortness of breath/palpitations/dizziness/seizure-like activity/involuntary loss of bowel or bladder movement. He is being managed for the following: Hypertensive urgency: Likely secondary to traumatic right hip fracture [see below], c/w home meds. Blood pressure fairly under control. Mechanical fall Right hip fracture Patient came in with fall [see above] Admitting hip x-ray with acute displaced right femoral neck fracture Admitting CXR with no acute findings. s/p Rt FREEDOM by Dr. Ricky Jones on 02/04/22 Pain control. PT/OT/DVT prophylaxis per Ortho. Will continue to monitor. Likely postoperative acute blood loss anemia: Preoperative hemoglobin of 15.0, Hb dropping postoperatively, 8.8 today. Repeat H&H 10 PM today. Pt w/ no dizziness or palpitations. Transfuse if hemoglobin less than 7 or for symptomatic anemia. Fever: Patient developed fever 39.6C in a.m. of 02/05 [which is POD 1 for right FREEDOM], 02/05 WBC elevated [could be due to acute stress versus undiagnosed infection] and Pro-Manuel negative. Patient had already got 2 doses of cefazolin before fever developed [02/04 evening and second 4 AM on 02/05]. 02/05 urine analysis and CXR not suggestive of infection. 02/05 flu/covid screen negative. Await 02/05 blood culture -- no growth so far. Likely postoperative fever versus undiagnosed infection, continue with empiric Zosyn 02/05. Continue to monitor. ARF: Admitting creatinine of 1.48, resolved. Minimal CPK elevation: 240 at admission, will follow CPK in a.m., statin on hold, CPK minimally started to downtrend. Other chronic medical conditions: History of PSVT/PAF, PVD, HLD, DM2, systolic murmur, past tobacco abuse --->> continue with/resume home meds as and when able. Sliding scale insulin. We will continue with telemetry perioperatively. DVT prophylaxis : per ortho on enoxaparin Full code Admission and Anticipated Discharge Date Admission Date: February 03, 2022 Subjective Patient seen and examined at bedside as a follow-up of hypertensive urgency and traumatic right hip fracture secondary to mechanical fall s/p repair 02/[address] Ricky Jones. Patient was lying semiupright in bed, on room air, NAD, denies discomfort, AOx4 and appears subjectively better today. Had elevated temperature in the morning of 02/05, getting better temperature control. Reports pain under control, pt eating better per RN, DC IV fluids. Patient denies any headache/chest pain/palpitations/shortness of breath/cough/sore throat/belly pain/acute changes in his bladder habits/other review of symptoms. Physical Exam Physical Exam: GENERAL: drowsy/lethargic and oriented x3. NAD, on room air. HEENT: No pallor, no icterus. Pupils equal, round and reactive to light. Oral mucosa moist. NECK: No JVD, no neck masses. HEART: S1 and S2 heard. Regular rate and rhythm. No murmur, no gallop. RESPIRATORY SYSTEM: Normal AP diameter. No accessory muscle use. No wheezing, no crackles. ABDOMEN: Soft, bowel sounds present, nontender, no distention. CENTRAL NERVOUS SYSTEM: No facial droop. Speech is clear. Obeys simple commands. Moves extremities. EXTREMITIES: No edema, no erythema seen. Distal NV status nl x RLE. Rt hip w/ clean dressing w/o soakage. Hemovac with scant serosanguineous collection noted. Results & Data Results & Data ([facility]) Vital Signs (Past 12 Hours) Vital Signs Temp Pulse Resp BP Pulse Ox O2 Del Method 02/06/22 08:00 Room Air 02/06/22 11:52 37.6 C H 86 16 134/51 L 93 Room Air 02/06/22 08:00 37.6 C 84 16 117/66 93 Room Air 02/06/22 03:49 95 Room Air (1) Closed fracture of right hip Encounter type: initial encounter Qualified Code(s): S72.001A - Fracture of unspecified part of neck of right femur, initial encounter for closed fracture
[2022-02-06] MEDS: ADVANCED PROBIOTIC 1250 MG CAPSULE PO SCH (16:15)
[2022-02-06] MEDS: DIGOXIN 0.25 MG TAB PO SCH (16:20)
[2022-02-06 16:21] LABS: Ferritin 366.5 ng/ml (8-388)
[2022-02-06] MEDS: SENNA 8.6 MG TAB PO SCH (20:39)
--- NOTE | 2022-02-06 21:50 | Communication Note ---
Date of Service: February 03, 2022 Patient noted to be lethargic by RN. Patient more awake after Narcan administration. AP Lethargy secondary to opioid Rx Change oxycodone to tramadol with hold parameters for sedation/confusion Change as needed Dilaudid to Toradol Will relay to AM provider.
[2022-02-06 22:57] LABS: Hematocrit (blood only) 25.2 % (40.1-51.0); Hemoglobin 8.8 g/dl (14.0-18.0)
[2022-02-06] MEDS ORDERED: LACTATED RINGER'S 1,000 ML IV ONE (23:30)
[2022-02-07] MEDS: KETOROLAC TROMETHAMINE 15 MG/ML VIAL IV PRN (00:31)
[2022-02-07 01:28] LABS: BUN Creatinine Ratio 26.9 (10-20); Creatinine Clr Calc Pharmacy 66.6 ml/min; Est GFR (African American) 76.3 ml/min; Est GFR (Non-African American) 65.9 ml/min; Potassium 3.7 mmol/L (3.5-5.1)
[2022-02-07 07:41] LABS: Hematocrit (blood only) 24.2 % (40.1-51.0); Hemoglobin 8.3 g/dl (14.0-18.0); Mean Corpuscular Hemoglobin 29.9 pg (25.0-34.0); Mean Corpuscular Hgb Conc 34.3 g/dL (32.0-36.0); Mean Corpuscular Volume 87.1 fL (80.0-100.0); Mean Platelet Volume 10.6 fL (9.4-12.4); Platelet Count 153 K/uL (130-400); RDW Standard Deviation 38.6 fL (36.4-46.3); Red Blood Count 2.78 M/uL (4.63-6.08); White Blood Count 10.15 K/ul (4.8-10.8)
--- NOTE | 2022-02-07 07:58 | Operative Report (OR) ---
DATE OF PROCEDURE: 02/04/2022. PREOPERATIVE DIAGNOSES: 1. Right displaced femoral neck fracture. 2. Right hip osteoarthritis. 3. Right hip pain. POSTOPERATIVE DIAGNOSES: 1. Right displaced femoral neck fracture. 2. Right hip osteoarthritis. 3. Right hip pain. PROCEDURE: Right total hip arthroplasty with press-fit [place] Accolade size 8 femoral component with a Biolox Delta ceramic +0 mm femoral head 36 mm in diameter, Trident Tritanium acetabular shell 60 mm, 6.5 mm locking screws x2, Trident X3 10-degree raised polyethylene insert. SURGEON: Ricky Jones DO. RAND MAKER: Jamie Marrero PA-C who was present for patient positioning, sterile prep and drape, management of retractors and instruments. He was present through the critical portions of the case including wound closure, application of sterile dressing and transport of the patient to recovery. ANESTHESIA: MAC, spinal, regional. SPECIMENS: Bone and tissue of the right hip. DRAINS: Hemovac 10-[place] x2 and a Meza catheter. COMPLICATIONS: None. BLOOD LOSS: 100 mL. PERTINENT HISTORY: This is a 76-year-old gentleman who sustained a mechanical fall. He is a community ambulator. He does use a cane due to hip pain and discomfort from time to time. He slipped in the shower and fell directly onto the right hip. He was transported to [facility], he was evaluated. Radiographs were obtained, noted to have a right displaced femoral neck fracture. He was admitted to the hospitalist service, optimized for surgery and then scheduled for surgery as indicated. All potential risks, benefits, complications, alternatives, rehab potential for incomplete relief of symptoms, need for further surgery, DVT, PE, , persistent pain, swelling, scarring, weakness, neurovascular injury, wound complications, hardware failure, nonunion, malunion, bone fracture were discussed with the patient. The patient decided to proceed with the procedure as indicated. DESCRIPTION OF PROCEDURE: The patient was taken to the Operating Suite and placed supine on the Operating Room table after identification of the consent and identification of the proper operative site the patient was sedated. The patient had previously received a spinal epidural anesthetic. The patient was then placed in the left lateral decubitus position with the affected side up and Stulberg positioning device then used to maintain lateral position of the patient. All bony prominences were properly padded and protected. Axillary roll was placed as standard and the leg lengths were determined to be essentially equal and then the right hip was then sterilely prepped and draped in the usual fashion. 10-blade scalpel incision was made laterally over the greater trochanter. The incision was deepened through the subcutaneous tissue and meticulous hemostasis with electrocautery. Further deepening of the wound through the layer of the fascia was performed with electrocautery and iliotibial band was then incised with electrocautery. Next, Charnley retractor was placed bother anteriorly and posteriorly at the level of the gluteus tendon. Next, electrocautery was used to make an incision in the vastus lateralis and then sweep was made toward the anterior aspect of the patient along the course of the femoral neck and head. Abductor split was then completed. The gluteus minimus and capsule were then incised and then soft tissue was dissected anteriorly. Next as the soft tissue was dissected anteriorly the lesser trochanter was clearly identified and hip was dislocated with relative ease. Hypertrophic osteophytes were noted circumferentially. The hip joint was noted to be noticeably tight. Next the sagittal saw was used to resect the proximal portion of the femoral neck and head approximately one fingerbreadth proximal to the lesser trochanter. Head was then removed and next the labrum was excised from the acetabulum with a 20 blade scalpel and long forceps. Next the wound was irrigated with pulsatile lavage and the pulvinar was then excised from the acetabulum. Appropriate retractors were placed anteriorly superiorly and posteriorly. Next initial acetabular reamer was placed 44 mm medialized to the medial wall and then sequential reaming was performed to size 60 mm. Trial cage was then placed and noted to be stable with excellent fit. Next the wound was irrigated with pulsatile lavage with bacitracin additive and 60 mm Tamera trident cup was impacted and then two 30 mm screws were used to stabilize the acetabular shell. Next X3 poly 36 mm was impacted into the shell. Lap sponge was placed over to protect it. Next, attention was turned toward the proximal femur. Box osteotome was used to resect proximal portion of bone followed by first pass small reamer. Next, sequential broaching was performed up to size 8 and the 8 trial was placed followed by +0 36 mm trial head. Next, it was reduced and had excellent fit and feel with minimal shuck and excellent stability in all planes and range of motion. Leg lengths were restored and next all trial implants were removed. The wound was copiously irrigated with pulsatile lavage and size 8 Accolade TMZF x 132 degree final stem was impacted. Next, Biolox ceramic 36 mm head +0 neck was impacted. The construct was reduced. Range of motion was performed and noted to be completely stable with excellent range of motion, improved to greater degree than prior to surgery. Two 10 [place] single Hemovac drains were placed exiting anterolaterally. Wound was irrigated with pulsatile lavage. Next a #5 ultra braid suture was used to close the capsule and gluteus minimum via two small bone tunnels made with 2.4 mm drill bit in the greater trochanter. After ultra braid closure was completed and noted to be stable then 10 [place] drains were placed followed by closure of the vastus lateralis and the gluteus medius. This was closed with #1 Vicryl sutures. Next, the iliotibial band was closed using interrupted [id number] #1 Vicryl sutures. Next, final irrigation was performed with pulsatile lavage and dermis was closed using buried interrupted 2-0 Vicryl suture. The skin was closed with skin william. Sterile compressive dressing was applied. The patient was then placed supine and taken to recovery in stable condition. Job ID: [id number] [facility]
[2022-02-07] MEDS: DOCUSATE SODIUM 100 MG CAP PO SCH ×2 (07:59→22:14)
[2022-02-07] MEDS: traMADol HCL 50 MG TABLET PO PRN ×3 (08:00→22:16)
[2022-02-07] MEDS: MULTIVITAMIN TAB PO SCH (08:01)
[2022-02-07] MEDS: ADVANCED PROBIOTIC 1250 MG CAPSULE PO SCH (08:01)
[2022-02-07] MEDS: ENOXAPARIN INJ 40 MG/0.4 ML SYR SQ SCH (08:01)
[2022-02-07] MEDS: LISINOPRIL/HCTZ 20/25MG 1 TAB PO SCH (08:01)
[2022-02-07] MEDS: PIPERACILLIN/TAZOBACTAM 3.375 GM in DEXTROSE 5% 100 ML IV SCH (08:16)
[2022-02-07] MEDS: ACETAMINOPHEN 325 MG TAB PO PRN ×3 (08:16→22:15)
[2022-02-07] MEDS: INSULIN ASPART PER UNIT SC SCH ×4 (08:16→22:28)
[2022-02-07] MEDS: LANTUS PER UNIT CHARGE SQ SCH (08:17)
[2022-02-07 08:27] LABS: BUN Creatinine Ratio 26.2 (10-20); Creatinine Clr Calc Pharmacy 69.8 ml/min; Est GFR (African American) 80.8 ml/min; Est GFR (Non-African American) 69.7 ml/min; Magnesium 2.2 mg/dl (1.7-2.4); Phosphorus 2.4 mg/dl (2.5-4.9); Potassium 3.9 mmol/L (3.5-5.1)
[2022-02-07 08:31] LABS: Folate (Folic Acid) 8.6 ng/ml (>5.38)
--- NOTE | 2022-02-07 09:40 | Ultrasound Report ---
ULTRASOUND BILATERAL LOWER EXTREMITY VENOUS CLINICAL HISTORY: Bilateral leg pain. COMPARISON STUDY: No priors. TECHNIQUE: Real-time, grayscale, and color Doppler sonography of the deep veins of the right and left lower extremity was performed from the inguinal crease to the calf. Compression and augmentation wer e utilized. FINDINGS: There is no sonographic evidence of deep venous thrombosis identified in the right or left lower extremity. The common femoral, superficial femoral, and popliteal veins are patent and normally compressible bilaterally. The greater saphenous vein and the profunda femoris vein at the junction w ith the common femoral vein are clear in both legs. The visualized calf veins are patent bilaterally. IMPRESSION: There is no sonographic evidence of deep venous thrombosis identified in the right or lef t lower extremity. ACT 112: Negative or not required by law. Electronically signed by: Vishal Hardin M.D. 02/07/2022 9:38 AM
[2022-02-07] MEDS: FERROUS GLUCONATE 324 MG TAB PO SCH (12:52)
[2022-02-07] MEDS: CYANOCOBALAMIN (B-12) 100 MCG TABLET PO SCH (12:53)
[2022-02-07] MEDS: FOLIC ACID 1 MG TAB PO SCH (12:53)
--- NOTE | 2022-02-07 14:27 | Hospitalist Progress Note ---
Date of Service February 07, 2022 Assessment & Plan (1) Closed fracture of right hip: Plan 76-year-old male with PMH of PSVT/PAF, PVD, HTN, HLD, DM2, past tobacco abuse who presented to the ED 02/03 after mechanical fall while shower and inflicted right hip injury, denies loss of consciousness/head trauma/chest pain/shortness of breath/palpitations/dizziness/seizure-like activity/involuntary loss of bowel or bladder movement. He is being managed for the following: Hypertensive urgency: Likely secondary to traumatic right hip fracture [see below], c/w home meds. Blood pressure fairly under control. Mechanical fall Right hip fracture Patient came in with fall [see above] Admitting hip x-ray with acute displaced right femoral neck fracture Admitting CXR with no acute findings. s/p Rt FREEDOM by Dr. Ricky Jones on 02/04/22 Pain control. PT/OT/DVT prophylaxis per Ortho. Will continue to monitor. Likely postoperative acute blood loss anemia: Preoperative hemoglobin of 15.0, Hb dropping postoperatively, 8.8 today. Repeat H&H 10 PM today. Pt w/ no dizziness or palpitations. Transfuse if hemoglobin less than 7 or for symptomatic anemia. Fever: Patient developed fever 39.6C in a.m. of 02/05 [which is POD 1 for right FREEDOM], 02/05 WBC elevated [could be due to acute stress versus undiagnosed infection] and Pro-Manuel negative. Patient had already got 2 doses of cefazolin before fever developed [02/04 evening and second 4 AM on 02/05]. 02/05 urine analysis and CXR not suggestive of infection. 02/05 flu/covid screen negative. Await 02/05 blood culture -- no growth so far. Likely postoperative fever versus undiagnosed infection, s/p empiric Zosyn 02/05 for 2 days. Pt has cough w/ throat clearing, will use doxy 02/07 for 5 days. ARF: Admitting creatinine of 1.48, resolved. Minimal CPK elevation: 240 at admission, stable and downtrending, statin on hold. Other chronic medical conditions: History of PSVT/PAF, PVD, HLD, DM2, systolic murmur, past tobacco abuse --->> continue with/resume home meds as and when able. Sliding scale insulin. We will continue with telemetry perioperatively. DVT prophylaxis : per ortho on enoxaparin Full code Dispo: PT/OT, likely DC in next 1 day if Hb stable and patient afebrile. Admission and Anticipated Discharge Date Admission Date: February 03, 2022 Subjective Patient seen and examined at bedside as a follow-up of hypertensive urgency and traumatic right hip fracture secondary to mechanical fall s/p repair 02/[address] Ricky Jones. Patient was lying semiupright in bed, on room air, NAD, denies discomfort, alert and awake. Afebrile. Reports pain under control. Patient denies any headache/chest pain/palpitations/shortness of breath/cough/sore throat/belly pain/acute changes in his bladder habits/other review of symptoms. Per RN, last BM 02/02, use prn laxatives/stool softner. Physical Exam Physical Exam: GENERAL: drowsy/lethargic and oriented x3. NAD, on room air. HEENT: No pallor, no icterus. Pupils equal, round and reactive to light. Oral mucosa moist. NECK: No JVD, no neck masses. HEART: S1 and S2 heard. Regular rate and rhythm. No murmur, no gallop. RESPIRATORY SYSTEM: Normal AP diameter. No accessory muscle use. No wheezing, no crackles. ABDOMEN: Soft, bowel sounds present, nontender, no distention. CENTRAL NERVOUS SYSTEM: No facial droop. Speech is clear. Obeys simple commands. Moves extremities. EXTREMITIES: No edema, no erythema seen. Distal NV status nl x RLE. Rt hip w/ clean dressing w/o soakage. Results & Data Results & Data ([facility]) Vital Signs (Past 12 Hours) Vital Signs Temp Pulse Resp BP BP Pulse Ox Pulse Ox 02/07/22 11:42 37.3 C 76 16 107/60 95 02/07/22 07:58 36.9 C 74 16 129/56 L 93 02/07/22 03:00 95 02/07/22 03:53 36.8 C 75 18 122/57 L 95 O2 Del Method O2 Del Method O2 Flow Rate 02/07/22 11:42 Room Air 02/07/22 07:58 Room Air 02/07/22 03:00 Room Air 0 02/07/22 03:53 Room Air (1) Closed fracture of right hip Encounter type: initial encounter Qualified Code(s): S72.001A - Fracture of unspecified part of neck of right femur, initial encounter for closed fracture
[2022-02-07] MEDS: metFORMIN HCL 500 MG TAB PO SCH (17:57)
[2022-02-07] MEDS: DIGOXIN 0.25 MG TAB PO SCH (17:57)
[2022-02-07] MEDS: SENNA 8.6 MG TAB PO SCH (22:14)
[2022-02-07] MEDS: DOXYCYCLINE HYCLATE 100 MG CAP PO SCH (22:15)
[2022-02-07 23:28] LABS: Hematocrit (blood only) 27.1 % (40.1-51.0); Hemoglobin 9.5 g/dl (14.0-18.0)
[2022-02-08 07:59] LABS: Hematocrit (blood only) 24.7 % (40.1-51.0); Hemoglobin 8.6 g/dl (14.0-18.0); Mean Corpuscular Hemoglobin 30.2 pg (25.0-34.0); Mean Corpuscular Hgb Conc 34.8 g/dL (32.0-36.0); Mean Corpuscular Volume 86.7 fL (80.0-100.0); Mean Platelet Volume 10.6 fL (9.4-12.4); Platelet Count 201 K/uL (130-400); RDW Coefficient of Variation 11.9 % (11.5-14.5); Red Blood Count 2.85 M/uL (4.63-6.08); White Blood Count 9.03 K/ul (4.8-10.8)
[2022-02-08] MEDS: MULTIVITAMIN TAB PO SCH (08:19)
[2022-02-08] MEDS: DOCUSATE SODIUM 100 MG CAP PO SCH ×2 (08:19→20:36)
[2022-02-08] MEDS: LISINOPRIL/HCTZ 20/25MG 1 TAB PO SCH (08:19)
[2022-02-08] MEDS: ADVANCED PROBIOTIC 1250 MG CAPSULE PO SCH (08:19)
[2022-02-08] MEDS: metFORMIN HCL 500 MG TAB PO SCH ×2 (08:20→16:41)
[2022-02-08] MEDS: CYANOCOBALAMIN (B-12) 100 MCG TABLET PO SCH (08:20)
[2022-02-08] MEDS: FERROUS GLUCONATE 324 MG TAB PO SCH (08:20)
[2022-02-08] MEDS: DOXYCYCLINE HYCLATE 100 MG CAP PO SCH ×2 (08:20→20:36)
[2022-02-08] MEDS: FOLIC ACID 1 MG TAB PO SCH (08:20)
[2022-02-08] MEDS: INSULIN ASPART PER UNIT SC SCH ×4 (08:21→20:39)
[2022-02-08] MEDS: LANTUS PER UNIT CHARGE SQ SCH (08:21)
[2022-02-08] MEDS: ENOXAPARIN INJ 40 MG/0.4 ML SYR SQ SCH (08:21)
[2022-02-08] MEDS: KETOROLAC TROMETHAMINE 15 MG/ML VIAL IV PRN (08:22)
[2022-02-08 08:31] LABS: BUN Creatinine Ratio 31.3 (10-20); Creatinine Clr Calc Pharmacy 86.7 ml/min; Est GFR (African American) 98.4 ml/min; Est GFR (Non-African American) 84.9 ml/min; Magnesium 2.2 mg/dl (1.7-2.4); Phosphorus 2.2 mg/dl (2.5-4.9); Potassium 3.8 mmol/L (3.5-5.1)
[2022-02-08] MEDS ORDERED: SODIUM PHOSPHATE 3 MMOL/1 ML INFUSION IV STA (08:47)
[2022-02-08] MEDS ORDERED: SODIUM PHOSPHATE 15 MMOL in SODIUM CHLORIDE 0.9% 250 ML IV ONE (09:15)
[2022-02-08] MEDS: ASPIRIN 81 MG ECTAB PO SCH (09:45)
[2022-02-08] MEDS: traMADol HCL 50 MG TABLET PO PRN ×2 (10:03→20:35)
--- NOTE | 2022-02-08 15:15 | Hospitalist Progress Note ---
Date of Service February 08, 2022 Assessment & Plan (1) Closed fracture of right hip: Plan 76-year-old male with PMH of PSVT/PAF, PVD, HTN, HLD, DM2, past tobacco abuse who presented to the ED 02/03 after mechanical fall while shower and inflicted right hip injury, denies loss of consciousness/head trauma/chest pain/shortness of breath/palpitations/dizziness/seizure-like activity/involuntary loss of bowel or bladder movement. He is being managed for the following: Hypertensive urgency: Likely secondary to traumatic right hip fracture [see below], c/w home meds. Blood pressure fairly under control. Mechanical fall Right hip fracture Patient came in with fall [see above] Admitting hip x-ray with acute displaced right femoral neck fracture Admitting CXR with no acute findings. s/p Rt FREEDOM by Dr. Ricky Jones on 02/04/22 Pain control. PT/OT/DVT prophylaxis per Ortho. Will continue to monitor. Likely postoperative acute blood loss anemia: Preoperative hemoglobin of 15.0, Hb dropping postoperatively, stable around mid 8 lately. H&H in AM. Pt w/ no dizziness or palpitations. Transfuse if hemoglobin less than 7 or for symptomatic anemia. Fever: Patient developed fever 39.6C in a.m. of 02/05 [which is POD 1 for right FREEDOM], 02/05 WBC elevated [could be due to acute stress versus undiagnosed infection] and Pro-Manuel negative. Patient had already got 2 doses of cefazolin before fever developed [02/04 evening and second 4 AM on 02/05]. 02/05 urine analysis and CXR not suggestive of infection. 02/05 flu/covid screen negative. Await 02/05 blood culture -- no growth so far. Likely postoperative fever versus undiagnosed infection, s/p empiric Zosyn 02/05 for 2 days. Pt has cough w/ throat clearing, will use doxy 02/07 for 5 days for possible bronchitis. ARF: Admitting creatinine of 1.48, resolved. Minimal CPK elevation: 240 at admission, stable and downtrended, statin on hold. Other chronic medical conditions: History of PSVT/PAF, PVD, HLD, DM2, systolic murmur, past tobacco abuse --->> continue with/resume home meds as and when able. Sliding scale insulin. We will continue with telemetry perioperatively. DVT prophylaxis : per ortho on enoxaparin Full code Dispo: PT/OT, likely DC tomorrow if Hb stable and patient afebrile. Admission and Anticipated Discharge Date Admission Date: February 03, 2022 Subjective Patient seen and examined at bedside as a follow-up of hypertensive urgency and traumatic right hip fracture secondary to mechanical fall s/p repair 02/[address] Ricky Jones. Patient was sitting up in chair, on room air, NAD, denies discomfort, alert and awake. Patient with low-grade fever in the morning. Reports pain under control. Patient denies any headache/chest pain/palpitations/shortness of breath/sore throat/belly pain/acute changes in his bladder habits/other review of symptoms. Per RN, last BM 02/02, use prn laxatives/stool softner. Patient reports his usual bowel movement is every 5 to 6 days. Physical Exam Physical Exam: GENERAL: drowsy/lethargic and oriented x3. NAD, on room air. HEENT: No pallor, no icterus. Pupils equal, round and reactive to light. Oral mucosa moist. NECK: No JVD, no neck masses. HEART: S1 and S2 heard. Regular rate and rhythm. No murmur, no gallop. RESPIRATORY SYSTEM: Normal AP diameter. No accessory muscle use. No wheezing, no crackles. ABDOMEN: Soft, bowel sounds present, nontender, no distention. CENTRAL NERVOUS SYSTEM: No facial droop. Speech is clear. Obeys simple commands. Moves extremities. EXTREMITIES: Trace edema, no erythema seen. Distal NV status nl x RLE. Rt hip w/ clean dressing w/o soakage. Results & Data Results & Data ([facility]) Vital Signs (Past 12 Hours) Vital Signs Temp Pulse Pulse Resp BP Pulse Ox O2 Del Method 02/08/22 14:42 36.9 C 70 18 109/66 95 Room Air 02/08/22 10:55 81 02/08/22 10:42 37.0 C 74 18 116/59 L 96 Room Air 02/08/22 07:00 37.6 C H 77 18 131/58 L 93 Room Air 02/08/22 03:55 37.6 C H 75 18 130/67 92 Room Air (1) Closed fracture of right hip Encounter type: initial encounter Qualified Code(s): S72.001A - Fracture of unspecified part of neck of right femur, initial encounter for closed fracture
[2022-02-08] MEDS: DIGOXIN 0.25 MG TAB PO SCH (16:41)
[2022-02-08] MEDS: SENNA 8.6 MG TAB PO SCH (20:36)
[2022-02-09 07:04] LABS: Hematocrit (blood only) 26.4 % (40.1-51.0); Hemoglobin 9.1 g/dl (14.0-18.0); Mean Corpuscular Hemoglobin 29.5 pg (25.0-34.0); Mean Corpuscular Hgb Conc 34.5 g/dL (32.0-36.0); Mean Corpuscular Volume 85.7 fL (80.0-100.0); Mean Platelet Volume 9.6 fL (9.4-12.4); Platelet Count 254 K/uL (130-400); RDW Coefficient of Variation 11.9 % (11.5-14.5); RDW Standard Deviation 36.9 fL (36.4-46.3); Red Blood Count 3.08 M/uL (4.63-6.08); White Blood Count 8.77 K/ul (4.8-10.8)
[2022-02-09 07:26] LABS: BUN Creatinine Ratio 24.1 (10-20); Calcium 8.2 mg/dl (8.5-10.1); Creatinine Clr Calc Pharmacy 90.7 ml/min; Est GFR (African American) 95.8 ml/min; Est GFR (Non-African American) 82.7 ml/min; Magnesium 2.1 mg/dl (1.7-2.4); Phosphorus 2.5 mg/dl (2.5-4.9); Potassium 3.7 mmol/L (3.5-5.1)
[2022-02-09] MEDS: ASPIRIN 81 MG ECTAB PO SCH (09:00)
[2022-02-09] MEDS: metFORMIN HCL 500 MG TAB PO SCH (09:00)
[2022-02-09] MEDS: ADVANCED PROBIOTIC 1250 MG CAPSULE PO SCH (09:01)
[2022-02-09] MEDS: FOLIC ACID 1 MG TAB PO SCH (09:01)
[2022-02-09] MEDS: CYANOCOBALAMIN (B-12) 100 MCG TABLET PO SCH (09:01)
[2022-02-09] MEDS: DOCUSATE SODIUM 100 MG CAP PO SCH (09:01)
[2022-02-09] MEDS: LISINOPRIL/HCTZ 20/25MG 1 TAB PO SCH (09:02)
[2022-02-09] MEDS: DOXYCYCLINE HYCLATE 100 MG CAP PO SCH (09:02)
[2022-02-09] MEDS: MULTIVITAMIN TAB PO SCH (09:02)
[2022-02-09] MEDS: FERROUS GLUCONATE 324 MG TAB PO SCH (09:03)
[2022-02-09] MEDS: ENOXAPARIN INJ 40 MG/0.4 ML SYR SQ SCH (09:12)
[2022-02-09] MEDS: INSULIN ASPART PER UNIT SC SCH ×2 (09:12→12:29)
[2022-02-09] MEDS: traMADol HCL 50 MG TABLET PO PRN (09:13)
[2022-02-09] MEDS: LANTUS PER UNIT CHARGE SQ SCH (09:13)
[2022-02-09] MEDS ORDERED: POLYETHYLENE (MIRALAX) 17 GM PACK PO ONE (10:55)
--- NOTE | 2022-02-09 10:56 | Hospitalist Progress Note ---
Date of Service February 09, 2022 Assessment & Plan (1) Closed fracture of right hip: Plan 76-year-old male with PMH of PSVT/PAF, PVD, HTN, HLD, DM2, past tobacco abuse who presented to the ED 02/03 after mechanical fall while in shower with right hip injury Mechanical fall Right hip fracture Patient came in with fall Admitting hip x-ray with acute displaced right femoral neck fracture Admitting CXR with no acute findings. s/p Rt FREEDOM by Dr. Ricky Jones on 02/04/22 Change tylenol to scheduled Continue prn tramadol Continue sq lovenox for DVT ppx. Considering patient's hx, will recommend this for 3-4 weeks while in rehab Continue PT/OT while awaiting rehab placement Bowel regimen for constipation Likely postoperative acute blood loss anemia: Preoperative hemoglobin of 15.0 Hb dropped postoperatively, stable now in 8- Continue to monitor Hold of IV ketorolac considering patient is already on lovenox. Monitor Fever: Patient developed fever 39.6C in a.m. of 02/05 [which is POD 1 for right FREEDOM] 02/05 WBC elevated [could be due to acute stress versus undiagnosed infection] Patient had already got 2 doses of cefazolin before fever developed [02/04 evening and second 4 AM on 02/05]. 02/05 urine analysis and CXR not suggestive of infection. 02/05 flu/covid screen negative. Got empirical antibiotics. Infectious workup so far remain negative No fevers in the past 48h. Hold off all antibiotics for now ARF: Admitting creatinine of 1.48 ABRAM is now resolved. Hypertensive urgency: Likely secondary to traumatic right hip fracture Continue home meds Pain control Minimal CPK elevation: 240 at admission, stable and downtrended Resume statin on discharge Other chronic medical conditions: History of PSVT/PAF, PVD, HLD, DM2, systolic murmur, past tobacco abuse --->> continue with/resume home meds as and when able. Sliding scale insulin. We will continue with telemetry perioperatively. DVT prophylaxis :Lovenox Full code Dispo: Stable for dc to rehab once available Admission and Anticipated Discharge Date Admission Date: February 03, 2022 Subjective 76-year-old male with PMH of PSVT/PAF, PVD, HTN, HLD, DM2, past tobacco abuse who presented to the ED 02/03 after mechanical fall while in shower Being managed for mechanical fall, right hip fracture status postrepair, hypertensive urgency. Patient seen and examined. Continues to report right hip pain, moderate, 5-6 over 10, constant, worse with activity, not referred Denied any headache, dizziness Denied any fevers, chills, nausea, vomiting, abdominal pain. Reports constipation. Reports chronic urge incontinence. Denies feeling of incomplete emptying, weak stream, dysuria, hematuria. Denies cough, chest pain, shortness of breath Review of Systems Review of Systems: All systems reviewed & are unremarkable except as noted in Subjective Physical Exam Constitutional: + well hydrated; no acute distress Eyes: PERRL, conjunctivae normal, anicteric sclerae ENMT: external ear and nose normal, oropharynx normal Respiratory: normal respiratory effort, lungs clear to auscultation Cardiovascular: Rate/Rhythm: regular rate and regular rhythm S1 S2 Gastrointestinal (Abdomen): normal bowel sounds, soft, nontender, no hepatosplenomegaly Musculoskeletal: Clean dressing over right hip Trace pedal edema Neurologic: PERRL, EOMI, accommodation nl, no face palsy, no dysarthria Psychiatric: A+Ox3, euthymic affect Results & Data Results & Data ([facility]) Vital Signs (Past 12 Hours) Vital Signs Temp Pulse Resp BP Pulse Ox O2 Del Method 02/09/22 07:36 37.3 C 76 18 161/67 H 95 Room Air 02/09/22 02:52 37.6 C H 78 20 135/66 93 Room Air 02/08/22 23:09 37.5 C 78 18 137/69 97 Room Air Laboratory Results Abnormal lab results 02/08/22 02/08/22 02/08/22 Range/Units 11:35 16:31 20:25 RBC (4.63-6.08) M/uL Hgb (14.0-18.0) g/dl Hct (40.1-51.0) % Sodium (136-145) mmol/L BUN/Creatinine Ratio (10-20) Glucose (70-99(Fasting)) mg/dl POC Glucose 200 H 171 H 201 H (70-99) mg/dl Calcium (8.5-10.1) mg/dl 02/09/22 02/09/22 02/09/22 Range/Units 06:53 06:53 07:45 RBC 3.08 L (4.63-6.08) M/uL Hgb 9.1 L (14.0-18.0) g/dl Hct 26.4 L (40.1-51.0) % Sodium 131 L (136-145) mmol/L BUN/Creatinine Ratio 24.1 H (10-20) Glucose 165 H (70-99(Fasting)) mg/dl POC Glucose 183 H (70-99) mg/dl Calcium 8.2 L (8.5-10.1) mg/dl (1) Closed fracture of right hip Encounter type: initial encounter Qualified Code(s): S72.001A - Fracture of unspecified part of neck of right femur, initial encounter for closed fracture
[2022-02-09] MEDS ORDERED: ACETAMINOPHEN 325 MG TAB PO SCH (11:00)
--- NOTE | 2022-02-09 13:33 | Discharge Summary ---
Date of Service February 09, 2022 Admission HPI Per Admitting Provider History obtained from patient and records. Medical history significant for PSVT/PAF, PVD, hypertension, hyperlipidemia, DM2 on oral medications, past tobacco abuse. Last confinement 2008 for lower extremity cellulitis. Patient slipped in the shower last night leading to a fall. Patient felt something pop on his right hip. Achy right hip pain, patient unable to get up. No head trauma, no LOC, no chest pain, no SOB. Patient yelling for for about an hour before family heard him. EMS alerted. Patient brought to the ER for evaluation. 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 Baseline Functionality : Still able to do housework without rest/exertional chest pain, S OB prior to injury Admission Exam Per Admitting Provider GENERAL: Comfortable, pleasant, no respiratory distress SKIN: Normal color, warm HEENT: Alopecia, No Name palpebral conjunctivae, no ptosis, dry buccal mucosa NECK : Supple, no tenderness CHEST : CTA, no tenderness HEART : RRR, systolic murmur best heard over left sternal border ABDOMEN: Some distention, nontender EXTREMITIES : No LE swelling, right hip tenderness, no other conspicuous deformities noted NEUROLOGIC : Coherent, no facial asymmetry, gait and stance not assessed Principal Diagnosis Fall Right hip fracture Post operative anemia Acute kidney injury Discharge Exam Constitutional + well hydrated; no acute distress Eyes PERRL, conjunctivae normal, anicteric sclerae ENMT external ear and nose normal, oropharynx normal Respiratory normal respiratory effort, lungs clear to auscultation Cardiovascular Rate/Rhythm: regular rate and regular rhythm S1 S2 Gastrointestinal (Abdomen) normal bowel sounds, soft, nontender, no hepatosplenomegaly Musculoskeletal Clean dressing over surgical site (right hip) Neurologic PERRL, EOMI, accommodation nl, no face palsy, no dysarthria Psychiatric A+Ox3, euthymic affect Discharge Data Allergies Allergy/AdvReac Type Severity Reaction Status Date / Time oxycodone AdvReac lethargy Verified 02/05/22 21:42 Consultations 02/03/22 01:49 ED Decision to Admit Stat 02/03/22 07:10 Consult Orthopedic Surgery Routine Procedures Performed Operation Date: 02/04/22 07:00 Actual Procedures p Right Total Hip Arthroplasty(Right) - Ricky Jones DO Ordered Studies 02/07/22 08:06 US venous doppler LE BI Routine There is no sonographic evidence of deep venous thrombosis identified in the right or left lower extremity. The common femoral, superficial femoral, and popliteal veins are patent and normally compressible bilaterally. The greater saphenous vein and the profunda femoris vein at the junction with the common femoral vein are clear in both legs. The visualized calf veins are patent bilaterally. IMPRESSION: There is no sonographic evidence of deep venous thrombosis identified in the right or left lower extremity. Hospital Course (1) Closed fracture of right hip: Plan 76-year-old male with PMH of PSVT/PAF, PVD, HTN, HLD, DM2, past tobacco abuse who presented to the ED 02/03 after mechanical fall while in shower with right hip injury Mechanical fall Right hip fracture Patient came in with fall Admitting hip x-ray with acute displaced right femoral neck fracture Admitting CXR with no acute findings. s/p Rt FREEDOM by Dr. Ricky Jones on 02/04/22 Continue tylenol and prn tramadol Continue sq lovenox for DVT ppx. Considering patient's hx, will recommend this for at least 2 weeks while in rehab and resume ASA afterwards. If not fully ambulatory in 2 weeks, may need lovenox for longer Discharged to rehab Likely postoperative acute blood loss anemia: Preoperative hemoglobin of 15.0 Hb dropped postoperatively, stable now in 8- Fever: Patient developed fever 39.6C in a.m. of 02/05 [which is POD 1 for right FREEDOM] 02/05 WBC elevated [could be due to acute stress versus undiagnosed infection] Patient had already got 2 doses of cefazolin before fever developed [02/04 evening and second 4 AM on 02/05]. 02/05 urine analysis and CXR not suggestive of infection. 02/05 flu/covid screen negative. Got empirical antibiotics. Infectious workup so far remain negative No fevers in the past 48h. Off all antibiotics ARF: Admitting creatinine of 1.48 ABRAM is now resolved. Hypertensive urgency: Likely secondary to traumatic right hip fracture Continue home meds Pain control Minimal CPK elevation: 240 at admission, stable and downtrended Resume statin on discharge Other chronic medical conditions: History of PSVT/PAF, PVD, HLD, DM2, systolic murmur, past tobacco abuse --->> continue with/resume home meds as and when able. Sliding scale insulin. We will continue with telemetry perioperatively. Total Time Total Time Spent Total Time Spent (In Minutes): 40 Total Time Includes: Examination of the Patient, Discharge Planning and Medication Reconciliation Discharge Plan Discharge Items Patient Disposition: Transfer [facility] Fac Reason For Visit: HTN URG, RT HIP FX Discharge Diagnosis: Fall Right hip fracture Post operative anemia Acute kidney injury Condition on Discharge: Good Activity: As commented below Activity Comment: Per physical therapist recommendations Non-emergency contact: Primary Care Provider and Surgeon Call non-emergency contact if: you have any medication questions and your symptoms worsen Follow-up/Referrals: Jesse Real, [Primary Care Provider] - Diet: Carb Consistent or DM2 and Heart Healthy iMne Attending Provider Instructions: Mr Welsh. You presented to the hospital after a fall and found to have right hip fracture. You had surgery for this. You had fever after surgery but evaluation did not show infection. You are being discharged to rehab facility. You are to continue the blood thinner lovenox (enoxaparin) injection for next 2 weeks, after which you can resume your home aspirin 81mg daily. If you are not ambulatory by then, you may need the blood thinner for longer. You are currently on 1 tab of Lisinopril-HCTZ (20-25mg) as you have been taking in the hospital. Please ensure follow up with your Primary Doctor and Surgeon. It was a pleasure taking care of you. [employer] Provider Instructions: ACTIVITY RECOMMENDATIONS: SELF CARE INSTRUCTIONS AFTER TOTAL HIP REPLACEMENT Until the incision and soft tissues around your hip have healed, there is a possibility that the hip prosthesis could dislocate. A. Observe the following precautions to prevent dislocation: 1. Don't bend your hip greater than 90 degrees. 2. Avoid crossing your legs or ankles while standing or lying. 3. Sit with your feet placed 6 inches apart. 4. When sitting, keep your knees below your hips. Sit on a firm surface, avoid deep, soft chairs and couches. Use an elevated toilet seat in the bathroom. 5. Don't bend over at the waist. Use a long handled shoehorn and a sock aid to help you put on your shoes and socks. A automotive parts interpreter can help you pickling grader objects that are too high or too low to reach. 6. Keep car riding to a minimum for at least one month after surgery. B. Your balance may be shaky for a while. Use crutches or a walker until directed by your doctor. C. Use hand rails when walking on stairs. D. Wear low heeled shoes with non-slip soles. E. Be sure that your floors are free of things that could trip you - throw rugs, electrical cords, small objects. Avoid wet and waxed floors, especially with crutches and canes. F. Try to walk several times a day with rest periods between. G. Continue with all the exercises taught to you in the hospital. Again, make walking a part of your daily routine. SPECIAL CARE INSTRUCTIONS: VERY IMPORTANT TO READ AND REVIEW A. You may still be at risk for phlebitis and blood clots. 1. Wear surgical stockings (JOSE M hose) for 2 weeks after surgery to improve circulation and reduce swelling. 2. Lovenox as prescribed. This is your blood thinner. B. You must take antibiotics before having dental work, bladder, bowel and other surgery. Your doctor will provide you with a permanent card to carry describing precautions. C. Call [facility] if you have a fever, redness or swelling around the incision, cloudy drainage from incision, or sudden increase in pain in your hip, not relieved by your regular pain medication. D. Please call the office at if you have any concerns or questions about your operation or recovery. * YOU MAY SHOWER, NO TUB BATHS UNTIL CLEARED BY YOUR DOCTOR. * WEAR JOSE M HOSE 20 HOURS PER DAY FOR 2 WEEKS. * YOU SHOULD USE A WALKER OR CRUTCHES FOR 4 WEEKS. THIS WILL HELP PREVENT STRAIN ON YOUR HIP MUSCLE AND ALLOW IT TO HEAL PROPERLY. YOU MAY WEAN TO A CANE TOLERATED. * MOST PATIENTS WILL HAVE HOME NURSING FOR THERAPY. IF YOU DECIDE TO DO OUTPATIENT PHYSICAL THERAPY, PLEASE SCHEDULE THIS 3 TIMES PER WEEK. * You may get your incision wet in the shower after 48 hours. Do not soak or submerge. You can change dressing daily. FOLLOW UP VISIT: If appointment is not already scheduled: Please call [facility] to make a follow-up appointment for 2 weeks after your surgery at with Dr. Jones's clinic. Pending Studies at Discharge: No Stand-Alone Forms: My [facility] Skilled Items Patient informed of condition?: Yes DNR: No Discharge Level of Care: Acute rehab Communicable Disease: No Discharge Prognosis: Stable Lines: None Urinary Catheter: No Medications and DC Order Prescriptions: New enoxaparin [Lovenox] 40 mg/0.4 mL Syringe 40 mg subcut Q24H 14 Days Qty: 5.6 0RF ferrous gluconate 324 mg (38 mg iron) Tablet 324 mg PO QAM Qty: 30 0RF acetaminophen 325 mg Tablet 650 mg PO Q6H Qty: 60 0RF tramadol 50 mg Tablet 25 mg PO Q6H PRN (Reason: Severe pain) Qty: 14 0RF sennosides [Senokot] 8.6 mg Tablet 17.2 mg PO HS Qty: 30 0RF Continued multivitamin Tablet 1 tab PO DAILY Qty: 30 0RF atorvastatin 20 mg tablet 20 mg PO DAILY Qty: 30 0RF glipizide 10 mg tablet extended release 24hr 10 mg PO AMHS Qty: 60 0RF digoxin 250 mcg (0.25 mg) tablet 250 mcg PO DAILY Qty: 30 0RF metformin 1,000 mg tablet 1,000 mg PO BID Qty: 60 0RF docusate sodium [Stool Softener] 100 mg Capsule 100 mg PO BID Qty: 60 0RF omega 0-rtm-ynl-fish oil [Fish Oil] 1,000 mg (120 mg-180 mg) Capsule 2 cap PO DAILY Qty: 60 0RF Invokana 300 mg tablet 300 mg PO DAILY Qty: 30 0RF Changed lisinopril-hydrochlorothiazide 20-25 mg tablet 1 tab PO DAILY Qty: 30 0RF Discontinued aspirin 81 mg Tablet,Delayed Release (Dr/Ec) 81 mg PO DAILY Discharge Orders: Discharge Order (Routine); Ordered 02/09/22 Ordered By: Zora Arshad Admission Data Admit Date/Time: 02/03/22 02:38 Attending Provider: Zora Arshad I. Admit Provider: Charli Bañuelos Primary Care Provider: Jesse Real Other Providers: Charli Bañuelos ; Thor Kelly ; Ricky Jones ; Alfonzo Moyer ; Marlene Radford ; Alonso Taveras ; Harper Mendez ; Saul Stiles ; Noel Lees ; Jong Torres ; Aidan Canales ; Braeden Pratt ; Brooks Guerin ; Andrew Figueroa ; Lonnie Manzo ; Harper Del Cid ; Frank Silva ; Jessi Johnson ; Jamie Marrero ; Lyndsey Katz ; Eamon Guy ; Que Parra ; Docena,[facility] ; Petey Alcantara Other Interventions: Discharge Summary Assessment (RN) Last Done: 02/09/22 14:18
[2022-02-09] MEDS ORDERED: COVID19 Vaccine (Primary Series--Pfizer) 30mcg/0.3mL IM ONE (14:00)
== END 2022-02-09 16:26 | DRG 522 ==
LOC: ED 01:32 → SUATTDRO 02:38 → EDINP 02:38 → 2W 06:31

== ENCOUNTER 2022-03-12 13:27 | Inpatient (IN) ==
[2022-03-12] MEDS ORDERED: SODIUM CHLORIDE 0.9% 1000ML 500 ML IV ONE ×2 (13:34→16:03)
--- NOTE | 2022-03-12 13:37 | Emergency Department Note ---
Impression & Plan Postoperative fever, Abdominal pain, Cystitis, Hypomagnesemia ED Provider Note NAME: VICTOR MANUEL HENDERSON AGE: 77 SEX: M : 1945 ARRIVES VIA: Ambulance INFORMANT: Patient, EMS ED PROVIDER(S): Da Hull DO CHIEF COMPLAINT: Altered mental status HPI: The patient is a 77-year-old male who presented to the emergency department by ambulance with altered mental status. The patient recently had surgery on his gallbladder. Most of the history was obtained from the prehospital personnel. The patient himself offers no complaints. He denies having any chest pain or difficulty breathing. He denies having any cough. He was noted to have a low-grade fever prior to arrival. The patient has a history of a calculus cholecystitis. The patient also has a history of diabetes. The patient was noticed to have generalized weakness. He was also felt to be off his baseline. He was noted to have low blood sugar prior to arrival. He does take glipizide. The patient was given IV dextrose with reportedly some improvement of his symptoms. ROS: See above HPI for pertinent positives & negatives. A total of 10 systems reviewed and were otherwise negative. PAST MEDICAL HISTORY: See Below PAST SURGICAL HISTORY: See Below FAMILY HISTORY: See Below SOCIAL HISTORY: See Below HOME MEDICATIONS: See Below ALLERGIES: See Below VITALS: See Below PHYSICAL EXAMINATION: GENERAL: The patient is awake and answers questions slowly. He seems to fall asleep quickly when not being questioned. EYES: The conjunctivae are clear. The pupils are round and reactive. EARS, NOSE, MOUTH AND THROAT: The nose is without any evidence of any deformity. Mucous membranes are dry. NECK: The neck is nontender and supple. RESPIRATORY: Normal respiratory effort is noted there is no evidence of wheezing rhonchi or rales CARDIOVASCULAR: Regular rate and rhythm noted there no murmurs rubs or gallops normal S1 normal S2. GASTROINTESTINAL: The abdomen is soft and mildly distended. Postoperative sites are noted on the anterior abdomen. There is no erythema drainage or dehiscence appreciated. MUSCULOSKELETAL/EXTREMITIES: There is no evidence of gross deformity full range of motion is noted in the hips and shoulders. SKIN: The skin is warm and dry. Trace pedal edema was noted bilaterally. NEUROLOGIC: Patient is awake to verbal commands. He is oriented to person place but not time or situation. Strength was symmetric but diminished. MEDICAL DECISION MAKING: The patient is a 77-year-old male who presented to the emergency department for evaluation of abdominal pain and low-grade fever. The patient is recently status postcholecystectomy. Initially I thought his procedure was done here however it appears the patient's procedure was done in [place]. The patient is also status post left hip replacement at the end of January. The patient was treated with IV fluids and IV antibiotics. He was reevaluated multiple times. He was also treated with magnesium replacement. I discussed the patient's condition with the on-call general surgeon as well [facility] agreed to evaluate the patient for further management. Reviewing the patient's CT with the general surgeon it does appear that he may have some postoperative changes in the upper abdomen as well as where the hip replacement was. The hip itself does not appear to cause the patient much pain on my exam but he may need to be seen by the orthopedic surgeon as well to determine if this is expected. The patient's white blood cell count was elevated. He appears to have signs of cystitis on CT so its possible this could just represent a urinary tract infection. The patient was somewhat improved on reevaluation. Triage Nursing notes reviewed. Prior medical records reviewed Vital Signs: reviewed and remarkable for tachycardia and hypotension. Differential diagnosis: Infection, hypoglycemia, electrolyte abnormalities, overdose, toxicologic, cardiac sources, intracerebral event, neurologic, trauma, as well as other pathologies. ER treatment provided: See below Diagnostics interpreted by me: ECG: EKG was obtained in the emergency department. My interpretation is sinus rhythm at 96 bpm. There was no ectopy. Right bundle branch block pattern was noted. This was compared to a tracing from February 18, 2022. No significant changes were noted. Cardiac Monitoring: An order was placed for continuous cardiac monitoring. The monitor shows a rate of 94 bpm with sinus rhythm. Laboratory studies: As stated above and show below. Imaging studies: See below Consultation(s): I discussed this case with Dr. Jones who is on-call for general surgery. He does recommend a HIDA scan be ordered. The patient did have surgery in [place]. I discussed his case with Dr. Verde who [facility]. Past Med/Surg History Medical History Closed fracture of right hip Diabetes Heart disease HTN (hypertension) Surgical History History of total hip arthroplasty Family History Other Cancer Lung disease Social History Smoking Status: Never smoker Hx Alcohol Use: No Hx Substance Use: No Preferred Language: French Communication Ability: Effective Visual Coordinator Required: No Beliefs That Will Affect Care: None marital status: Current Living Situation: Spouse How many Children do You have: 2 Feels Safe at Home: Yes Assistive Devices: Cane Allergies Allergies Allergy/AdvReac Type Severity Reaction Status Date / Time oxycodone AdvReac lethargy Verified 02/05/22 21:42 Home Meds Home Medications Medication Instructions Recorded Confirmed acetaminophen 325 mg tablet 650 mg PO TID 02/18/22 03/12/22 alpha lipoic acid 600 mg tablet 1,200 mg PO DAILY 02/18/22 03/12/22 aspirin 81 mg tablet,delayed 81 mg PO DAILY 02/18/22 03/12/22 release glipizide 10 mg tablet, extended 10 mg PO AMPM 02/18/22 03/12/22 release 24 hr potassium chloride 20 mEq 20 meq PO DAILY 02/18/22 03/12/22 tablet,extended release(part/cryst) Previous Rx's Medication Instructions Recorded atorvastatin 20 mg tablet 20 mg PO DAILY #30 tabs 02/09/22 canagliflozin 300 mg tablet 300 mg PO DAILY #30 tabs 02/09/22 (Invokana) digoxin 250 mcg (0.25 mg) tablet 250 mcg PO DAILY #30 tabs 02/09/22 docusate sodium 100 mg capsule 100 mg PO BID #60 caps 02/09/22 (Stool Softener) ferrous gluconate 324 mg (38 mg 324 mg PO QAM #30 tabs 02/09/22 iron) tablet lisinopril 20 1 tab PO DAILY #30 tabs 02/09/22 mg-hydrochlorothiazide 25 mg tablet metformin 1,000 mg tablet 1,000 mg PO BID #60 tabs 02/09/22 multivitamin 1 tab PO DAILY #30 tabs 02/09/22 omega 7-mrq-vab-fish oil 1,000 mg 2 cap PO DAILY #60 caps 02/09/22 (120 mg-180 mg) capsule (Fish Oil) sennosides 8.6 mg tablet (Senokot) 17.2 mg PO HS #30 tabs 02/09/22 tramadol 50 mg tablet 25 mg PO Q6H PRN Severe pain #14 02/09/22 tabs Results & Data (ED) Vital Signs Vital Signs - 24 hr 03/12/22 13:49 03/12/22 13:34 Temperature 37.4 C Temperature Source Oral Pulse Rate 94 H 94 H Pulse Rhythm Regular Respiratory Rate 16 18 Blood Pressure 128/59 L Blood Pressure Mean 82 Pulse Oximetry 95 95 Oxygen Delivery Method Room Air Room Air Sepsis Recent Fever Within 48 Hours No Sepsis New/Unexplained Change in Mental Status Yes Sepsis Action Taken by Nursing No Action Required Home Medications Current Medication List: was personally reviewed by me Laboratory Data Attestation: I reviewed the patient's lab results. Result diagrams: 03/12/22 14:05 03/12/22 14:05 Lab Results 03/12/22 03/12/22 03/12/22 Range/Units 14:05 14:05 14:05 WBC 15.49 H (4.8-10.8) K/ul RBC 3.71 L (4.63-6.08) M/uL Hgb 10.9 L (14.0-18.0) g/dl Hct 33.7 L (40.1-51.0) % MCV 90.8 (80.0-100.0) fL MCH 29.4 (25.0-34.0) pg MCHC 32.3 (32.0-36.0) g/dL RDW Std Deviation 50.3 H (36.4-46.3) fL RDW Coeff of Aleyda 15.3 H (11.5-14.5) % Plt Count 388 (130-400) K/uL MPV 9.2 L (9.4-12.4) fL Immature Gran % (Auto) 0.8 % Neut % (Auto) 82.7 % Lymph % (Auto) 10.3 % [place] % (Auto) 5.6 % Eos % (Auto) 0.3 % Baso % (Auto) 0.3 % Neut # (Auto) 12.83 H (1.4-6.5) K/uL Lymph # (Auto) 1.59 (1.2-3.4) K/uL [place] # (Auto) 0.86 H (0.24-0.82) K/uL Eos # (Auto) 0.04 (0-0.50) K/uL Baso # (Auto) 0.04 (0-0.2) K/uL Immature Gran # (Auto) 0.13 H (0.00-0.02) K/uL PT 11.9 (9.0-12.0) Seconds INR 1.1 (0.9-1.1) APTT 29.6 (21.0-31.0) Seconds PTT Ratio 1.1 Sodium 133 L (136-145) mmol/L Potassium 4.0 (3.5-5.1) mmol/L Chloride 97 L (98-107) mmol/L Carbon Dioxide 28 (21-32) mmol/L Anion Gap 8 (3-11) BUN 16 (6-23) mg/dl Creatinine 0.79 (0.6-1.4) mg/dl Est Cr Clr Drug Dosing 92.1 ml/min Est GFR ( Amer) 99.7 ml/min Est GFR (Non-Af Amer) 86.0 ml/min BUN/Creatinine Ratio 20.3 H (10-20) Glucose 83 (70-99(Fasting)) mg/dl Lactate (0.4-2.0) mmol/L Calcium 8.7 (8.5-10.1) mg/dl Magnesium 1.6 L (1.7-2.4) mg/dl Total Bilirubin 0.5 (0.2-1.0) mg/dl Direct Bilirubin 0.2 (0-0.2) mg/dl AST 21 (13-39) U/L ALT 21 (7-52) U/L Alkaline Phosphatase 93 (34-104) U/L Troponin I High Sens 23.5 H D (0-20) pg/ml Total Protein 7.3 (6.0-8.3) gm/dl Albumin 3.2 L (3.4-5.0) gm/dl Procalcitonin (0-0.5) ng/ml Digoxin (0.8-2.0) ng/ml 03/12/22 03/12/22 03/12/22 Range/Units 14:05 14:05 14:17 WBC (4.8-10.8) K/ul RBC (4.63-6.08) M/uL Hgb (14.0-18.0) g/dl Hct (40.1-51.0) % MCV (80.0-100.0) fL MCH (25.0-34.0) pg MCHC (32.0-36.0) g/dL RDW Std Deviation (36.4-46.3) fL RDW Coeff of Aleyda (11.5-14.5) % Plt Count (130-400) K/uL MPV (9.4-12.4) fL Immature Gran % (Auto) % Neut % (Auto) % Lymph % (Auto) % [place] % (Auto) % Eos % (Auto) % Baso % (Auto) % Neut # (Auto) (1.4-6.5) K/uL Lymph # (Auto) (1.2-3.4) K/uL [place] # (Auto) (0.24-0.82) K/uL Eos # (Auto) (0-0.50) K/uL Baso # (Auto) (0-0.2) K/uL Immature Gran # (Auto) (0.00-0.02) K/uL PT (9.0-12.0) Seconds INR (0.9-1.1) APTT (21.0-31.0) Seconds PTT Ratio Sodium (136-145) mmol/L Potassium (3.5-5.1) mmol/L Chloride (98-107) mmol/L Carbon Dioxide (21-32) mmol/L Anion Gap (3-11) BUN (6-23) mg/dl Creatinine (0.6-1.4) mg/dl Est Cr Clr Drug Dosing ml/min Est GFR ( Amer) ml/min Est GFR (Non-Af Amer) ml/min BUN/Creatinine Ratio (10-20) Glucose (70-99(Fasting)) mg/dl Lactate 2.1 H* (0.4-2.0) mmol/L Calcium (8.5-10.1) mg/dl Magnesium (1.7-2.4) mg/dl Total Bilirubin (0.2-1.0) mg/dl Direct Bilirubin (0-0.2) mg/dl AST (13-39) U/L ALT (7-52) U/L Alkaline Phosphatase (34-104) U/L Troponin I High Sens (0-20) pg/ml Total Protein (6.0-8.3) gm/dl Albumin (3.4-5.0) gm/dl Procalcitonin 0.79 H (0-0.5) ng/ml Digoxin 1.2 (0.8-2.0) ng/ml Administered Medications Discontinued Medications Sodium Chloride (Nss 1000ml) 500 mls @ 999 mls/hr IV .Q31M ONE Stop: 03/12/22 14:04 Last Infusion: 03/12/22 14:43 Dose: 0 mls/hr Documented By: Admin: 03/12/22 14:10 Dose: 999 mls/hr Documented By: PAMELA Ioversol (Ioversol 350 Mg 100ml Prefilled Syringe) 94 ml IV ONCE ONE Stop: 03/12/22 15:11 Last Admin: 03/12/22 15:10 Dose: 94 ml Documented By: WERNER Imaging Data Radiologist's Impression: Abdomen/Pelvis CT 03/12/22 13:34 CT SCAN OF THE ABDOMEN AND PELVIS WITH IV CONTRAST CLINICAL HISTORY: Postoperative fever. Recent cholecystectomy. COMPARISON STUDY: Abdominal CT dated 02/18/2022. TECHNIQUE: Following the IV administration of 94 cc of Optiray 350, CT scan of the abdomen and pelvis is performed from the lung bases to the proximal femora. Images are reviewed in the axial, sagittal, and coronal planes. IV contrast was administered without complication. A dose lowering technique was utilized adhering to the principles of ALARA. The examination is degraded by motion artifact, as well as by streak artifact from the arms which could not be elevated above the abdomen. CT DOSE: 974.25 mGy.cm FINDINGS: Lung bases: The heart is normal in size and without pericardial effusion. The coronary arteries are densely calcified. There is elevation of the left hemidiaphragm with bibasilar scarring/atelectasis. A calcified granuloma seen at the left lung base. Liver: The contrast-enhanced liver is normal in size, contour, and attenuation. There is no intrahepatic biliary ductal dilatation. The hepatic veins and portal veins are patent. Gallbladder: The gallbladder is surgically absent noting clips in the gallbladder fossa. There is a pocket of fluid in the gallbladder fossa measuring approximately 8 x 1.5 cm seen on image #172. No gas is seen within this fluid. Spleen: Normal in size and attenuation. There are calcified splenic granulomas. Pancreas: Unremarkable. Adrenal glands: A 1.9 cm indeterminate right adrenal nodule is unchanged. The left adrenal gland is normal in appearance. Kidneys: The contrast enhanced kidneys are normal in size and without hydronephrosis. The kidneys enhance symmetrically. A 2.0 cm heterogeneously enhancing lesion is again seen arising from the upper pole of the right kidney on image #216. The 7.3 cm cyst arises from the right lower pole. Abdominal vasculature: There is advanced atherosclerotic calcification and mild ectasia of the abdominal aorta. Bowel: Mild to moderate fecal retention is seen throughout the colon. No bowel obstruction is identified. The appendix is well-visualized and normal. Peritoneum: There is no intraperitoneal free air or abdominal ascites. Lymphadenopathy: None. Pelvic viscera: Evaluation of the pelvis is degraded by streak artifact from a right hip arthroplasty. The prostate gland is enlarged and heterogeneous noting median lobe hypertrophy. The bladder is largely decompressed. The bladder wall is markedly thickened with surrounding inflammation. Gas is present in the bladder lumen. Skeletal structures: The skeletal structures are osteopenic. There is mild to moderate lumbosacral spondylosis. Mild chronic compression deformities are noted in the lower thoracic spine. No lytic or blastic lesions are seen. A right hip arthroplasty is in place. There is infiltration and foci of soft tissue gas surrounding the right hip. A fluid collection overlying the greater trochanter on image #[id number] intense foci of gas and measures approximately 6 x 4 x 4.5 cm. IMPRESSION: 1. Streak and motion compromised examination. 2. There is postsurgical change from interval cholecystectomy. A thin pocket of indeterminant fluid is seen in the gallbladder fossa as above. This could represent expected postoperative change/resolving hematoma. Bile leak or infection cannot be excluded by CT. Clinical correlation will be essential. If there is clinical concern for bile leak a nuclear hepatobiliary scan should be considered. 3. The bladder wall is markedly thickened with surrounding inflammation and intraluminal gas. The appearance is typical for cystitis. Correlate with clinical findings and urinalysis. 4. Soft tissue infiltration and foci of subcutaneous gas are seen overlying the right hip arthroplasty. There is a small fluid collection overlying the greater trochanter of the proximal femur as above. This could represent expected postoperative changes given recent surgery. The sterility of these findings cannot be assessed by imaging and clinical correlation will be essential. 5. There is a 2.0 cm complex enhancing nodule arising from the upper pole of the right kidney. Renal cell carcinoma is the diagnosis of exclusion. Nonemergent follow up with urology is recommended. 6. Additional findings as above. ACT 112: Negative or not required by law. Electronically signed by: Vishal Hardin M.D. 03/12/2022 4:08 PM Chest X-Ray 03/12/22 13:34 SINGLE VIEW CHEST CLINICAL HISTORY: Sepsis. FINDINGS: 2 AP, portable, upright chest radiographs are compared to chest x-ray and chest CT dated 02/18/2022. The examination is degraded by portable technique and patient rotation. The heart is top normal in size noting atherosclerotic calcification of the thoracic aorta. There is chronic elevation of the left hemidiaphragm with bibasilar scarring/atelectasis. Scattered calcified granulomas are observed. No airspace consolidation or large pleural effusion is identified. No pneumothorax is seen. The skeletal structures are osteopenic. The bony thorax is grossly intact. IMPRESSION: No acute cardiopulmonary abnormality. ACT 112: Negative or not required by law. Electronically signed by: Vishal Hardin M.D. 03/12/2022 1:[address] 03/12/22 13:34 CT SCAN OF THE BRAIN WITHOUT IV CONTRAST CLINICAL HISTORY: Change in mental status. COMPARISON STUDY: CT of the brain dated 08/07/2019. TECHNIQUE: Unenhanced axial CT scan of the brain is performed from the vertex to the skull base. A dose lowering technique was utilized adhering to the principles of ALARA. CT DOSE: 994.59 mGy.cm FINDINGS: Brain parenchyma: There is age-related involutional change noting moderate patchy subcortical and periventricular microangiopathic disease. There is no hemorrhage, mass effect, or evidence of acute territorial ischemia by CT criteria. Cornell-white matter differentiation is preserved. No extra-axial fluid collection is seen. Ventricles, sulci, cisterns: Prominent secondary to involutional change. Intracranial vasculature: There is atherosclerotic calcification of the cavernous carotid and vertebral arteries. Calvarium: Unremarkable. Sinuses and mastoids: The paranasal sinuses are clear. The mastoid air cells are well pneumatized. Orbits: The bony orbits are grossly intact. There are bilateral ocular lens implants. IMPRESSION: There is no hemorrhage, mass effect, or evidence of acute territorial ischemia by CT criteria. ACT 112: Negative or not required by law. Electronically signed by: Vishal Hardin M.D. 03/12/2022 3:24 PM Discharge Plan Visit Data Chief Complaint: Lethargic ED Provider: Da Hull Discharge Problem: Postoperative fever, Abdominal pain, Cystitis, Hypomagnesemia Patient Disposition: Being Evaluated by Hospitalist Forms Stand Alone Forms: My [facility] Prescriptions Prescriptions: No Action aspirin 81 mg tablet,delayed release (DR/EC) 81 mg PO DAILY potassium chloride 20 mEq tablet,ER particles/crystals 20 meq PO DAILY acetaminophen 325 mg tablet 650 mg PO TID glipizide 10 mg tablet extended release 24hr 10 mg PO AMPM Rx Instructions: take with morning and evening meal alpha lipoic acid 600 mg Tablet 1,200 mg PO DAILY ferrous gluconate 324 mg (38 mg iron) Tablet 324 mg PO QAM Qty: 30 0RF tramadol 50 mg Tablet 25 mg PO Q6H PRN (Reason: Severe pain) Qty: 14 0RF sennosides [Senokot] 8.6 mg Tablet 17.2 mg PO HS Qty: 30 0RF multivitamin Tablet 1 tab PO DAILY Qty: 30 0RF atorvastatin 20 mg tablet 20 mg PO DAILY Qty: 30 0RF digoxin 250 mcg (0.25 mg) tablet 250 mcg PO DAILY Qty: 30 0RF metformin 1,000 mg tablet 1,000 mg PO BID Qty: 60 0RF docusate sodium [Stool Softener] 100 mg Capsule 100 mg PO BID Qty: 60 0RF lisinopril-hydrochlorothiazide 20-25 mg tablet 1 tab PO DAILY Qty: 30 0RF omega 5-zkc-hfa-fish oil [Fish Oil] 1,000 mg (120 mg-180 mg) Capsule 2 cap PO DAILY Qty: 60 0RF Invokana 300 mg tablet 300 mg PO DAILY Qty: 30 0RF Referrals Referrals: Jesse Real, [Primary Care Provider] -
--- NOTE | 2022-03-12 13:51 | XRay Report ---
SINGLE VIEW CHEST CLINICAL HISTORY: Sepsis. FINDINGS: 2 AP, portable, upright chest radiographs are compared to chest x-ray and chest CT dated 02/18/2022. The examination is degraded by portable technique and patient rotation. The heart is top norm al in size noting atherosclerotic calcification of the thoracic aorta. There is chronic elevation of the left hemidiaphragm with bibasilar scarring/atelectasis. Scattered calcified granulomas are observ ed. No airspace consolidation or large pleural effusion is identified. No pneumothorax is seen. The s keletal structures are osteopenic. The bony thorax is grossly intact. IMPRESSION: No acute cardiopulmonary abnormality. ACT 112: Negative or not required by law. Electronically signed by: Vishal Hardin M.D. 03/12/2022 1:49 PM
[2022-03-12 14:30] LABS: Basophils # (auto) 0.04 K/uL (0-0.2); Basophils % (auto) 0.3 %; Eosinophils # (auto) 0.04 K/uL (0-0.50); Eosinophils % (auto) 0.3 %; Hematocrit (blood only) 33.7 % (40.1-51.0); Hemoglobin 10.9 g/dl (14.0-18.0); Immature Granulocytes # (auto) 0.13 K/uL (0.00-0.02); Immature Granulocytes % (auto) 0.8 %; Lymphocytes # (auto) 1.59 K/uL (1.2-3.4); Lymphocytes % (auto) 10.3 %; Mean Corpuscular Hemoglobin 29.4 pg (25.0-34.0); Mean Corpuscular Hgb Conc 32.3 g/dL (32.0-36.0); Mean Corpuscular Volume 90.8 fL (80.0-100.0); Mean Platelet Volume 9.2 fL (9.4-12.4); Monocytes # (auto) 0.86 K/uL (0.24-0.82); Monocytes % (auto) 5.6 %; Neutrophils # (auto) 12.83 K/uL (1.4-6.5); Neutrophils % (auto) 82.7 %; Platelet Count 388 K/uL (130-400); RDW Coefficient of Variation 15.3 % (11.5-14.5); RDW Standard Deviation 50.3 fL (36.4-46.3); Red Blood Count 3.71 M/uL (4.63-6.08); White Blood Count 15.49 K/ul (4.8-10.8)
[2022-03-12 14:44] LABS: INR 1.1 (0.9-1.1); Partial Thromboplastin Ratio 1.1; Partial Thromboplastin Time 29.6 Seconds (21.0-31.0); Prothrombin Time 11.9 Seconds (9.0-12.0)
[2022-03-12 14:52] LABS: Albumin Level 3.2 gm/dl (3.4-5.0); BUN Creatinine Ratio 20.3 (10-20); Bilirubin Direct 0.2 mg/dl (0-0.2); Bilirubin,Total 0.5 mg/dl (0.2-1.0); Calcium 8.7 mg/dl (8.5-10.1); Creatinine Clr Calc Pharmacy 92.1 ml/min; Est GFR (African American) 99.7 ml/min; Magnesium 1.6 mg/dl (1.7-2.4); Total Protein 7.3 gm/dl (6.0-8.3)
[2022-03-12 14:58] LABS: Troponin I High Sensitivity 23.5 pg/ml (0-20)
[2022-03-12] MEDS ORDERED: IOVERSOL 350 MG 100mL Prefilled Syringe IV ONE (15:10)
--- NOTE | 2022-03-12 15:27 | CT Scan Report ---
CT SCAN OF THE BRAIN WITHOUT IV CONTRAST CLINICAL HISTORY: Change in mental status. COMPARISON STUDY: CT of the brain dated 08/07/2019. TECHNIQUE: Unenhanced axial CT scan of the brain is performed from the vertex to the skull base. A do se lowering technique was utilized adhering to the principles of ALARA. CT DOSE: 994.59 mGy.cm FINDINGS: Brain parenchyma: There is age-related involutional change noting moderate patchy subcortical and per iventricular microangiopathic disease. There is no hemorrhage, mass effect, or evidence of acute terr itorial ischemia by CT criteria. Cornell-white matter differentiation is preserved. No extra-axial fluid collection is seen. Ventricles, sulci, cisterns: Prominent secondary to involutional change. Intracranial vasculature: There is atherosclerotic calcification of the cavernous carotid and vertebr al arteries. Calvarium: Unremarkable. Sinuses and mastoids: The paranasal sinuses are clear. The mastoid air cells are well pneumatized. Orbits: The bony orbits are grossly intact. There are bilateral ocular lens implants. IMPRESSION: There is no hemorrhage, mass effect, or evidence of acute territorial ischemia by CT akssidy julien. ACT 112: Negative or not required by law. Electronically signed by: Vishal Hardin M.D. 03/12/2022 3:24 PM
[2022-03-12] MEDS ORDERED: PIPERACILLIN/TAZOBACTAM 4.5 GM/120 ML BAG IV ONE (16:02)
[2022-03-12] MEDS ORDERED: MAGNESIUM SULFATE / D5W 1 GM/100 ML BAG IV STA (16:03)
--- NOTE | 2022-03-12 16:10 | CT Scan Report ---
CT SCAN OF THE ABDOMEN AND PELVIS WITH IV CONTRAST CLINICAL HISTORY: Postoperative fever. Recent cholecystectomy. COMPARISON STUDY: Abdominal CT dated 02/18/2022. TECHNIQUE: Following the IV administration of 94 cc of Optiray 350, CT scan of the abdomen and pelvi s is performed from the lung bases to the proximal femora. Images are reviewed in the axial, sagittal , and coronal planes. IV contrast was administered without complication. A dose lowering technique wa s utilized adhering to the principles of ALARA. The examination is degraded by motion artifact, as we ll as by streak artifact from the arms which could not be elevated above the abdomen. CT DOSE: 974.25 mGy.cm FINDINGS: Lung bases: The heart is normal in size and without pericardial effusion. The coronary arteries are d ensely calcified. There is elevation of the left hemidiaphragm with bibasilar scarring/atelectasis. A calcified granuloma seen at the left lung base. Liver: The contrast-enhanced liver is normal in size, contour, and attenuation. There is no intrahepa tic biliary ductal dilatation. The hepatic veins and portal veins are patent. Gallbladder: The gallbladder is surgically absent noting clips in the gallbladder fossa. There is a p ocket of fluid in the gallbladder fossa measuring approximately 8 x 1.5 cm seen on image #172. No gas is seen within this fluid. Spleen: Normal in size and attenuation. There are calcified splenic granulomas. Pancreas: Unremarkable. Adrenal glands: A 1.9 cm indeterminate right adrenal nodule is unchanged. The left adrenal gland is n ormal in appearance. Kidneys: The contrast enhanced kidneys are normal in size and without hydronephrosis. The kidneys enh ance symmetrically. A 2.0 cm heterogeneously enhancing lesion is again seen arising from the upper po le of the right kidney on image #216. The 7.3 cm cyst arises from the right lower pole. Abdominal vasculature: There is advanced atherosclerotic calcification and mild ectasia of the abdomi nal aorta. Bowel: Mild to moderate fecal retention is seen throughout the colon. No bowel obstruction is identif ied. The appendix is well-visualized and normal. Peritoneum: There is no intraperitoneal free air or abdominal ascites. Lymphadenopathy: None. Pelvic viscera: Evaluation of the pelvis is degraded by streak artifact from a right hip arthroplasty . The prostate gland is enlarged and heterogeneous noting median lobe hypertrophy. The bladder is lar darvin decompressed. The bladder wall is markedly thickened with surrounding inflammation. Gas is prese nt in the bladder lumen. Skeletal structures: The skeletal structures are osteopenic. There is mild to moderate lumbosacral sp ondylosis. Mild chronic compression deformities are noted in the lower thoracic spine. No lytic or bl astic lesions are seen. A right hip arthroplasty is in place. There is infiltration and foci of soft tissue gas surrounding the right hip. A fluid collection overlying the greater trochanter on image #1 [id number] intense foci of gas and measures approximately 6 x 4 x 4.5 cm. IMPRESSION: 1. Streak and motion compromised examination. 2. There is postsurgical change from interval cholecystectomy. A thin pocket of indeterminant fluid i s seen in the gallbladder fossa as above. This could represent expected postoperative change/resolvin g hematoma. Bile leak or infection cannot be excluded by CT. Clinical correlation will be essential. If there is clinical concern for bile leak a nuclear hepatobiliary scan should be considered. 3. The bladder wall is markedly thickened with surrounding inflammation and intraluminal gas. The krzysztof earance is typical for cystitis. Correlate with clinical findings and urinalysis. 4. Soft tissue infiltration and foci of subcutaneous gas are seen overlying the right hip arthroplast y. There is a small fluid collection overlying the greater trochanter of the proximal femur as above. This could represent expected postoperative changes given recent surgery. The sterility of these fin dings cannot be assessed by imaging and clinical correlation will be essential. 5. There is a 2.0 cm complex enhancing nodule arising from the upper pole of the right kidney. Renal cell carcinoma is the diagnosis of exclusion. Nonemergent follow up with urology is recommended. 6. Additional findings as above. ACT 112: Negative or not required by law. Electronically signed by: Vishal Hardin M.D. 03/12/2022 4:08 PM
[2022-03-12] MEDS ORDERED: PHARMACY GLYCEMIC MGMT CONSULT PRN (16:42)
--- NOTE | 2022-03-12 16:46 | History & Physical Report ---
Date of Service March 12, 2022 Assessment & Plan (1) Abdominal pain: (2) S/P cholecystectomy: Plan: - Early in February, patient found to have acalculous cholecystitis, and was transferred to [place] for further treatment - Underwent cholecystectomy there. Surgery was complicated and was changed to open cholecystectomy. - Patient had hemorrhagic shock and required multiple units of blood transfusions, was in ICU after surgery -Now presents with some abdominal pain, confusion, fever (per shelter staff, no fever noted in ER) -CT abd. pelvis now in ED abnormal as above -General surgery was consulted by ED provider, recommend HIDA scan to evaluate for biliary leak -IV Zosyn started, will continue -Blood cultures pending (3) Cystitis: Plan: - Noted on CT abdomen pelvis in the ED - UA s/w UTI - IV Zosyn already started, will continue for now await urine cultx (4) Hypomagnesemia: Plan: - replace and monitor (5) Diabetes: Plan: - hold home meds - presented w/ hypoglycemia prior to admission - glycemic pharmacy consulted, ISS (6) Paroxysmal supraventricular tachycardia: (7) HTN (hypertension): Plan: - cont. digoxin, asa - hold lisinopril/HCTZ for now - monitor BP (8) Duodenal ulcer: (9) Gastritis: Plan: - Was found to have duodenal ulcer and gastritis on EGD in [place] recently - Continue PPI History of Present Illness Chief Complaint: confusion, fever, s/p cholecystectomy Primary Care Provider: Jesse Real DO 77-year-old male, with history of hypertension, paroxysmal supraventricular tachycardia, type 2 diabetes mellitus, recent history of hip fracture status post surgical repair in January 2022, recent history of acalculous cholecystitis, status post cholecystectomy, with complications. Patient was transferred to [place] for cholecystectomy, after surgery he had hemorrhagic shock required multiple blood transfusions and was admitted to ICU. He also underwent endoscopy and was found to have duodenal ulcer and gastritis. Patient now presents from [facility], reportedly he was doing fairly well after surgery, however now presents with some abdominal pain, confusion and fever. No fever documented in the ER. CT abdomen pelvis obtained in the ED, with concern of cystitis, and biliary leak. Procalcitonin mildly elevated at 0.79, and white blood cell count 15.5 K. UA c/w UTI. Blood cultx - obtained and pending. General surgery was consulted by ED provider, and it was recommended to obtain HIDA scan. IV Zosyn was started. Patient is currently laying in bed, in no acute distress. He is able to tell me his name, denies any complaints besides hip pain with movement. Denies abdominal pain. Denies any fevers chills chest pain or shortness of breath. Denies dysuria or any difficulty with urination. Patient however does not seem to be a good historian, and answers questions very slowly. Allergies Allergy/AdvReac Type Severity Reaction Status Date / Time oxycodone AdvReac lethargy Verified 02/05/22 21:42 Home Medications Medication Instructions Recorded Confirmed Type atorvastatin 20 mg tablet 20 mg PO DAILY #30 tabs 02/09/22 03/12/22 Rx canagliflozin 300 mg tablet 300 mg PO DAILY #30 tabs 02/09/22 03/12/22 Rx (Invokana) digoxin 250 mcg (0.25 mg) tablet 250 mcg PO DAILY #30 tabs 02/09/22 03/12/22 Rx docusate sodium 100 mg capsule 100 mg PO BID #60 caps 02/09/22 03/12/22 Rx (Stool Softener) ferrous gluconate 324 mg (38 mg 324 mg PO QAM #30 tabs 02/09/22 03/12/22 Rx iron) tablet lisinopril 20 1 tab PO DAILY #30 tabs 02/09/22 03/12/22 Rx mg-hydrochlorothiazide 25 mg tablet metformin 1,000 mg tablet 1,000 mg PO BID #60 tabs 02/09/22 03/12/22 Rx multivitamin 1 tab PO DAILY #30 tabs 02/09/22 03/12/22 Rx omega 0-oui-boq-fish oil 1,000 mg 2 cap PO DAILY #60 caps 02/09/22 03/12/22 Rx (120 mg-180 mg) capsule (Fish Oil) sennosides 8.6 mg tablet (Senokot) 17.2 mg PO HS #30 tabs 02/09/22 03/12/22 Rx tramadol 50 mg tablet 25 mg PO Q6H PRN Severe pain #14 02/09/22 03/12/22 Rx tabs acetaminophen 325 mg tablet 650 mg PO TID 02/18/22 03/12/22 History alpha lipoic acid 600 mg tablet 1,200 mg PO DAILY 02/18/22 03/12/22 History aspirin 81 mg tablet,delayed 81 mg PO DAILY 02/18/22 03/12/22 History release glipizide 10 mg tablet, extended 10 mg PO AMPM 02/18/22 03/12/22 History release 24 hr potassium chloride 20 mEq 20 meq PO DAILY 02/18/22 03/12/22 History tablet,extended release(part/cryst) Past Med/Surg History Medical History (Updated 03/12/22 @ 16:58 by Prem Verde MD) Closed fracture of right hip Diabetes Duodenal ulcer Gastritis Heart disease HTN (hypertension) Paroxysmal supraventricular tachycardia Surgical History (Updated 03/12/22 @ 16:49 by Prem Verde MD) History of total hip arthroplasty S/P cholecystectomy Family History Other Cancer Lung disease Social History Smoking Status: Never smoker Hx Alcohol Use: No Hx Substance Use: No Preferred Language: Yi Communication Ability: Effective Quality Assurance/R&D Lab Technician Required: No Beliefs That Will Affect Care: None marital status: Current Living Situation: Spouse How many Children do You have: 2 Feels Safe at Home: Yes Assistive Devices: Cane Review of Systems Review of Systems: All systems reviewed & are unremarkable except as noted in HPI & below Physical Exam Constitutional: WD/WN, vitals as above Eyes: PERRL, conjunctivae normal, anicteric sclerae ENMT: external ear and nose normal, oropharynx normal Neck: normal visual inspection Respiratory: normal respiratory effort, lungs clear to auscultation Cardiovascular: Rate/Rhythm: regular rate (+ murmur) Chest (Breasts): Chest: normal inspection of chest Gastrointestinal (Abdomen): normal bowel sounds, soft, nontender, no hepatosplenomegaly (incisions from cholecystectomy noted, healing well) Musculoskeletal: no cyanosis or clubbing, extremities motor strength 5/5 (pain w/ movement s/p hip surg.) Skin: no rashes, warm and dry Neurologic: PERRL, EOMI, accommodation nl, no face palsy, no dysarthria Psychiatric: A+Ox3, euthymic affect Genitourinary: no CVA tenderness Results & Data Results & Data ([facility]) Vital Signs (Past 12 Hours) Vital Signs Temp Pulse Resp BP Pulse Ox O2 Del Method 03/12/22 13:34 94 H 18 95 Room Air 03/12/22 13:49 37.4 C 94 H 16 128/59 L 95 Room Air Laboratory Results 03/12/22 03/12/22 03/12/22 Range/Units 14:17 14:08 14:05 WBC (4.8-10.8) K/ul RBC (4.63-6.08) M/uL Hgb (14.0-18.0) g/dl Hct (40.1-51.0) % MCV (80.0-100.0) fL MCH (25.0-34.0) pg MCHC (32.0-36.0) g/dL RDW Std Deviation (36.4-46.3) fL RDW Coeff of Aleyda (11.5-14.5) % Plt Count (130-400) K/uL MPV (9.4-12.4) fL Immature Gran % (Auto) % Neut % (Auto) % Lymph % (Auto) % [place] % (Auto) % Eos % (Auto) % Baso % (Auto) % Neut # (Auto) (1.4-6.5) K/uL Lymph # (Auto) (1.2-3.4) K/uL [place] # (Auto) (0.24-0.82) K/uL Eos # (Auto) (0-0.50) K/uL Baso # (Auto) (0-0.2) K/uL Immature Gran # (Auto) (0.00-0.02) K/uL PT (9.0-12.0) Seconds INR (0.9-1.1) APTT (21.0-31.0) Seconds PTT Ratio Sodium (136-145) mmol/L Potassium (3.5-5.1) mmol/L Chloride (98-107) mmol/L Carbon Dioxide (21-32) mmol/L Anion Gap (3-11) BUN (6-23) mg/dl Creatinine (0.6-1.4) mg/dl Est Cr Clr Drug Dosing ml/min Est GFR ( Amer) ml/min Est GFR (Non-Af Amer) ml/min BUN/Creatinine Ratio (10-20) Glucose (70-99(Fasting)) mg/dl Lactate 2.1 H* (0.4-2.0) mmol/L Calcium (8.5-10.1) mg/dl Magnesium (1.7-2.4) mg/dl Total Bilirubin (0.2-1.0) mg/dl Direct Bilirubin (0-0.2) mg/dl AST (13-39) U/L ALT (7-52) U/L Alkaline Phosphatase (34-104) U/L Troponin I High Sens (0-20) pg/ml Total Protein (6.0-8.3) gm/dl Albumin (3.4-5.0) gm/dl Procalcitonin (0-0.5) ng/ml Digoxin 1.2 (0.8-2.0) ng/ml SARS-CoV-2 (PCR) Pending Influenza Type A (PCR) Pending Influenza Type B (PCR) Pending RSV (RT-PCR) Pending 03/12/22 03/12/22 03/12/22 Range/Units 14:05 14:05 14:05 WBC (4.8-10.8) K/ul RBC (4.63-6.08) M/uL Hgb (14.0-18.0) g/dl Hct (40.1-51.0) % MCV (80.0-100.0) fL MCH (25.0-34.0) pg MCHC (32.0-36.0) g/dL RDW Std Deviation (36.4-46.3) fL RDW Coeff of Aleyda (11.5-14.5) % Plt Count (130-400) K/uL MPV (9.4-12.4) fL Immature Gran % (Auto) % Neut % (Auto) % Lymph % (Auto) % [place] % (Auto) % Eos % (Auto) % Baso % (Auto) % Neut # (Auto) (1.4-6.5) K/uL Lymph # (Auto) (1.2-3.4) K/uL [place] # (Auto) (0.24-0.82) K/uL Eos # (Auto) (0-0.50) K/uL Baso # (Auto) (0-0.2) K/uL Immature Gran # (Auto) (0.00-0.02) K/uL PT 11.9 (9.0-12.0) Seconds INR 1.1 (0.9-1.1) APTT 29.6 (21.0-31.0) Seconds PTT Ratio 1.1 Sodium 133 L (136-145) mmol/L Potassium 4.0 (3.5-5.1) mmol/L Chloride 97 L (98-107) mmol/L Carbon Dioxide 28 (21-32) mmol/L Anion Gap 8 (3-11) BUN 16 (6-23) mg/dl Creatinine 0.79 (0.6-1.4) mg/dl Est Cr Clr Drug Dosing 92.1 ml/min Est GFR ( Amer) 99.7 ml/min Est GFR (Non-Af Amer) 86.0 ml/min BUN/Creatinine Ratio 20.3 H (10-20) Glucose 83 (70-99(Fasting)) mg/dl Lactate (0.4-2.0) mmol/L Calcium 8.7 (8.5-10.1) mg/dl Magnesium 1.6 L (1.7-2.4) mg/dl Total Bilirubin 0.5 (0.2-1.0) mg/dl Direct Bilirubin 0.2 (0-0.2) mg/dl AST 21 (13-39) U/L ALT 21 (7-52) U/L Alkaline Phosphatase 93 (34-104) U/L Troponin I High Sens 23.5 H D (0-20) pg/ml Total Protein 7.3 (6.0-8.3) gm/dl Albumin 3.2 L (3.4-5.0) gm/dl Procalcitonin 0.79 H (0-0.5) ng/ml Digoxin (0.8-2.0) ng/ml SARS-CoV-2 (PCR) Influenza Type A (PCR) Influenza Type B (PCR) RSV (RT-PCR) 03/12/22 Range/Units 14:05 WBC 15.49 H (4.8-10.8) K/ul RBC 3.71 L (4.63-6.08) M/uL Hgb 10.9 L (14.0-18.0) g/dl Hct 33.7 L (40.1-51.0) % MCV 90.8 (80.0-100.0) fL MCH 29.4 (25.0-34.0) pg MCHC 32.3 (32.0-36.0) g/dL RDW Std Deviation 50.3 H (36.4-46.3) fL RDW Coeff of Aleyda 15.3 H (11.5-14.5) % Plt Count 388 (130-400) K/uL MPV 9.2 L (9.4-12.4) fL Immature Gran % (Auto) 0.8 % Neut % (Auto) 82.7 % Lymph % (Auto) 10.3 % [place] % (Auto) 5.6 % Eos % (Auto) 0.3 % Baso % (Auto) 0.3 % Neut # (Auto) 12.83 H (1.4-6.5) K/uL Lymph # (Auto) 1.59 (1.2-3.4) K/uL [place] # (Auto) 0.86 H (0.24-0.82) K/uL Eos # (Auto) 0.04 (0-0.50) K/uL Baso # (Auto) 0.04 (0-0.2) K/uL Immature Gran # (Auto) 0.13 H (0.00-0.02) K/uL PT (9.0-12.0) Seconds INR (0.9-1.1) APTT (21.0-31.0) Seconds PTT Ratio Sodium (136-145) mmol/L Potassium (3.5-5.1) mmol/L Chloride (98-107) mmol/L Carbon Dioxide (21-32) mmol/L Anion Gap (3-11) BUN (6-23) mg/dl Creatinine (0.6-1.4) mg/dl Est Cr Clr Drug Dosing ml/min Est GFR ( Amer) ml/min Est GFR (Non-Af Amer) ml/min BUN/Creatinine Ratio (10-20) Glucose (70-99(Fasting)) mg/dl Lactate (0.4-2.0) mmol/L Calcium (8.5-10.1) mg/dl Magnesium (1.7-2.4) mg/dl Total Bilirubin (0.2-1.0) mg/dl Direct Bilirubin (0-0.2) mg/dl AST (13-39) U/L ALT (7-52) U/L Alkaline Phosphatase (34-104) U/L Troponin I High Sens (0-20) pg/ml Total Protein (6.0-8.3) gm/dl Albumin (3.4-5.0) gm/dl Procalcitonin (0-0.5) ng/ml Digoxin (0.8-2.0) ng/ml SARS-CoV-2 (PCR) Influenza Type A (PCR) Influenza Type B (PCR) RSV (RT-PCR) Diagnostic Findings Head CT IMPRESSION: There is no hemorrhage, mass effect, or evidence of acute territorial ischemia by CT criteria. CXR IMPRESSION: No acute cardiopulmonary abnormality. CT Abd./ pelvis FINDINGS: Lung bases: The heart is normal in size and without pericardial effusion. The coronary arteries are densely calcified. There is elevation of the left hemidiaphragm with bibasilar scarring/atelectasis. A calcified granuloma seen at the left lung base. Liver: The contrast-enhanced liver is normal in size, contour, and attenuation. There is no intrahepatic biliary ductal dilatation. The hepatic veins and portal veins are patent. Gallbladder: The gallbladder is surgically absent noting clips in the gallbladder fossa. There is a pocket of fluid in the gallbladder fossa measuring approximately 8 x 1.5 cm seen on image #172. No gas is seen within this fluid. Spleen: Normal in size and attenuation. There are calcified splenic granulomas. Pancreas: Unremarkable. Adrenal glands: A 1.9 cm indeterminate right adrenal nodule is unchanged. The left adrenal gland is normal in appearance. Kidneys: The contrast enhanced kidneys are normal in size and without hydronephrosis. The kidneys enhance symmetrically. A 2.0 cm heterogeneously enhancing lesion is again seen arising from the upper pole of the right kidney on image #216. The 7.3 cm cyst arises from the right lower pole. Abdominal vasculature: There is advanced atherosclerotic calcification and mild ectasia of the abdominal aorta. Bowel: Mild to moderate fecal retention is seen throughout the colon. No bowel obstruction is identified. The appendix is well-visualized and normal. Peritoneum: There is no intraperitoneal free air or abdominal ascites. Lymphadenopathy: None. Pelvic viscera: Evaluation of the pelvis is degraded by streak artifact from a right hip arthroplasty. The prostate gland is enlarged and heterogeneous noting median lobe hypertrophy. The bladder is largely decompressed. The bladder wall is markedly thickened with surrounding inflammation. Gas is present in the bladder lumen. Skeletal structures: The skeletal structures are osteopenic. There is mild to moderate lumbosacral spondylosis. Mild chronic compression deformities are noted in the lower thoracic spine. No lytic or blastic lesions are seen. A right hip arthroplasty is in place. There is infiltration and foci of soft tissue gas surrounding the right hip. A fluid collection overlying the greater trochanter on image #[id number] intense foci of gas and measures approximately 6 x 4 x 4.5 cm. IMPRESSION: 1. Streak and motion compromised examination. 2. There is postsurgical change from interval cholecystectomy. A thin pocket of indeterminant fluid is seen in the gallbladder fossa as above. This could r epresent expected postoperative change/resolving hematoma. Bile leak or infection cannot be excluded by CT. Clinical correlation will be essential. If there is clinical concern for bile leak a nuclear hepatobiliary scan should be considered. 3. The bladder wall is markedly thickened with surrounding inflammation and intraluminal gas. The appearance is typical for cystitis. Correlate with clinical findings and urinalysis. 4. Soft tissue infiltration and foci of subcutaneous gas are seen overlying the right hip arthroplasty. There is a small fluid collection overlying the greater trochanter of the proximal femur as above. This could represent expected postoperative changes given recent surgery. The sterility of these findings cannot be assessed by imaging and clinical correlation will be essential. 5. There is a 2.0 cm complex enhancing nodule arising from the upper pole of the right kidney. Renal cell carcinoma is the diagnosis of exclusion. Nonemergent follow up with urology is recommended. Code Status & VTE Plan VTE Prophylaxis Plan VTE Prophylaxis will be ordered: Yes (1) Abdominal pain Abdominal location: generalized Qualified Code(s): R10.84 - Generalized abdominal pain
[2022-03-12 17:10] LABS: Appearance Urine Clear (Clear); Bacteria Urine Automated 4+ (Negative); Bilirubin Urine Negative (Negative); Blood Urine Trace (Negative); Color Urine Yellow; Epithelial Cell Urine Auto 0-5 /lpf (0-5); Glucose Urine UA 3+ (Negative); Ketones Urine Negative (Negative); Leukocyte Esterase Urine 1+ (Negative); Nitrite Urine Positive (Negative); Protein Urine Trace (Negative); Specific Gravity Urine > 1.045 (1.000-1.030); Urobilinogen Urine Negative (Negative); WBC Urine Automated >30 /hpf (0-5); pH Urine 5.5 (4.5-7.5)
[2022-03-12 17:22] LABS: Influenza A virus by PCR Negative (Neg); Influenza B virus by PCR Negative (Neg); RSV by PCR Negative (Neg); SARS CoV2 RNA(COVID-19) InHosp NEGATIVE (Negative)
[2022-03-12] MEDS ORDERED: DEXTROSE 50% 50 ML SYRINGE IV PRN (17:30)
[2022-03-12] MEDS ORDERED: GLUCAGON FOR INJ 1 MG VIAL IM PRN (17:30)
[2022-03-12] MEDS ORDERED: GLUCOSE 10 TAB/TUBE PO PRN (17:30)
[2022-03-12] MEDS ORDERED: CARBOHYDRATES FOR HYPOGLYCEMIA PO PRN (17:30)
[2022-03-12] MEDS ORDERED: GLUCOSE 40% GEL 15 GM TUBE PO PRN (17:30)
--- NOTE | 2022-03-12 17:32 | Surgery Consultation ---
Date of Consultation March 12, 2022 Assessment & Plan (1) S/P cholecystectomy: 77-year-old male status post open cholecystectomy with complicated postoperative course. CT shows a small amount of fluid in the gallbladder fossa, likely unrelated to patient's current condition. Would recommend HIDA scan to rule out postoperative bile leak, and cover with broad-spectrum antibiotics in the meantime. If any surgical intervention is required he would require transfer back to [place]. History of Present Illness History of Present Illness 77-year-old male transferred from rehab to ER for concerns of lethargy. He was admitted last month with a fracture that was fixed. He then developed what appeared to be a calculus cholecystitis and was transferred to [facility]. He underwent a laparoscopic converted to open cholecystectomy which apparently was complicated by postoperative hemorrhagic shock and required ICU stay and transfusion of several units of blood. It appears that he had a drain postoperatively. He also had an EGD that showed a gastritis and duodenal ulcer. I do not have access to his surgical notes or operative report at this time. He was apparently doing okay until they noticed that he was lethargic and nonresponsive. He is a poor historian. Allergies Allergy/AdvReac Type Severity Reaction Status Date / Time oxycodone AdvReac lethargy Verified 02/05/22 21:42 Home Medications Medication Instructions Recorded Confirmed Type atorvastatin 20 mg tablet 20 mg PO DAILY #30 tabs 02/09/22 03/12/22 Rx canagliflozin 300 mg tablet 300 mg PO DAILY #30 tabs 02/09/22 03/12/22 Rx (Invokana) digoxin 250 mcg (0.25 mg) tablet 250 mcg PO DAILY #30 tabs 02/09/22 03/12/22 Rx docusate sodium 100 mg capsule 100 mg PO BID #60 caps 02/09/22 03/12/22 Rx (Stool Softener) ferrous gluconate 324 mg (38 mg 324 mg PO QAM #30 tabs 02/09/22 03/12/22 Rx iron) tablet lisinopril 20 1 tab PO DAILY #30 tabs 02/09/22 03/12/22 Rx mg-hydrochlorothiazide 25 mg tablet metformin 1,000 mg tablet 1,000 mg PO BID #60 tabs 02/09/22 03/12/22 Rx multivitamin 1 tab PO DAILY #30 tabs 02/09/22 03/12/22 Rx omega 8-hri-cik-fish oil 1,000 mg 2 cap PO DAILY #60 caps 02/09/22 03/12/22 Rx (120 mg-180 mg) capsule (Fish Oil) sennosides 8.6 mg tablet (Senokot) 17.2 mg PO HS #30 tabs 02/09/22 03/12/22 Rx tramadol 50 mg tablet 25 mg PO Q6H PRN Severe pain #14 02/09/22 03/12/22 Rx tabs acetaminophen 325 mg tablet 650 mg PO TID 02/18/22 03/12/22 History alpha lipoic acid 600 mg tablet 1,200 mg PO DAILY 02/18/22 03/12/22 History aspirin 81 mg tablet,delayed 81 mg PO DAILY 02/18/22 03/12/22 History release glipizide 10 mg tablet, extended 10 mg PO AMPM 02/18/22 03/12/22 History release 24 hr potassium chloride 20 mEq 20 meq PO DAILY 02/18/22 03/12/22 History tablet,extended release(part/cryst) Patient History Medical History (Updated 03/12/22 @ 16:58 by Prem Verde MD) Closed fracture of right hip Diabetes Duodenal ulcer Gastritis Heart disease HTN (hypertension) Paroxysmal supraventricular tachycardia Surgical History (Updated 03/12/22 @ 16:49 by Prem Verde MD) History of total hip arthroplasty S/P cholecystectomy Family History Other Cancer Lung disease Social History Smoking Status: Never smoker Hx Alcohol Use: No Hx Substance Use: No Preferred Language: Swedish Communication Ability: Effective [employer]aling [employer] Operator Required: No Beliefs That Will Affect Care: None marital status: Current Living Situation: Spouse How many Children do You have: 2 Feels Safe at Home: Yes Assistive Devices: Cane Review of Systems Review of Systems: Unobtainable due to cognitive status Physical Exam Constitutional: WD/WN, vitals as above Respiratory: normal respiratory effort, lungs clear to auscultation Cardiovascular: RRR, no murmur, no edema Gastrointestinal (Abdomen): normal bowel sounds, soft, nontender, no hepatosplenomegaly Inspection/Auscultation: + abdominal surgical scar (Nanette incision healing well) Percussion/Palpation: abdomen nontender (No significant tenderness) Results & Data ([facility]) Vital Signs (Past 12 Hours) Vital Signs Temp Pulse Resp BP Pulse Ox O2 Del Method 03/12/22 16:50 96 H 29 H 03/12/22 16:40 97 H 28 H 03/12/22 16:30 97 H 28 H 03/12/22 16:20 98 H 28 H 03/12/22 16:10 96 H 28 H 03/12/22 16:00 95 H 26 H 03/12/22 15:50 93 H 29 H 03/12/22 15:40 92 H 30 H 03/12/22 15:30 93 H 28 H 03/12/22 15:16 94 03/12/22 14:50 27 H 03/12/22 14:40 26 H 03/12/22 14:30 27 H 03/12/22 14:20 26 H 03/12/22 14:10 25 H 03/12/22 14:00 27 H 97 03/12/22 13:50 25 H 94 03/12/22 13:40 27 H 95 03/12/22 13:36 94 03/12/22 13:36 128/59 L 03/12/22 13:34 94 H 18 95 Room Air 03/12/22 13:49 37.4 C 94 H 16 128/59 L 95 Room Air Laboratory Results Laboratory Results - last 24 hr 03/12/22 03/12/22 03/12/22 14:05 14:05 14:05 WBC 15.49 H RBC 3.71 L Hgb 10.9 L Hct 33.7 L MCV 90.8 MCH 29.4 MCHC 32.3 RDW Std Deviation 50.3 H RDW Coeff of Aleyda 15.3 H Plt Count 388 MPV 9.2 L Immature Gran % (Auto) 0.8 Neut % (Auto) 82.7 Lymph % (Auto) 10.3 Rains % (Auto) 5.6 Eos % (Auto) 0.3 Baso % (Auto) 0.3 Neut # (Auto) 12.83 H Lymph # (Auto) 1.59 Rains # (Auto) 0.86 H Eos # (Auto) 0.04 Baso # (Auto) 0.04 Immature Gran # (Auto) 0.13 H PT 11.9 INR 1.1 APTT 29.6 PTT Ratio 1.1 Sodium 133 L Potassium 4.0 Chloride 97 L Carbon Dioxide 28 Anion Gap 8 BUN 16 Creatinine 0.79 Est Cr Clr Drug Dosing 92.1 Est GFR ( Amer) 99.7 Est GFR (Non-Af Amer) 86.0 BUN/Creatinine Ratio 20.3 H Glucose 83 Lactate Calcium 8.7 Magnesium 1.6 L Total Bilirubin 0.5 Direct Bilirubin 0.2 AST 21 ALT 21 Alkaline Phosphatase 93 Troponin I High Sens 23.5 H D Total Protein 7.3 Albumin 3.2 L Procalcitonin Urine Color Urine Appearance Urine pH Ur Specific Freeman Urine Protein Urine Glucose (UA) Urine Ketones Urine Blood Urine Nitrite Urine Bilirubin Urine Urobilinogen Ur Leukocyte Esterase Urine WBC (Auto) Urine RBC (Auto) U Hyaline Cast (Auto) U Epithel Cells (Auto) Urine Bacteria (Auto) Digoxin SARS-CoV-2 (PCR) Influenza Type A (PCR) Influenza Type B (PCR) RSV (RT-PCR) 03/12/22 03/12/22 03/12/22 14:05 14:05 14:08 WBC RBC Hgb Hct MCV MCH MCHC RDW Std Deviation RDW Coeff of Aleyda Plt Count MPV Immature Gran % (Auto) Neut % (Auto) Lymph % (Auto) Rains % (Auto) Eos % (Auto) Baso % (Auto) Neut # (Auto) Lymph # (Auto) Rains # (Auto) Eos # (Auto) Baso # (Auto) Immature Gran # (Auto) PT INR APTT PTT Ratio Sodium Potassium Chloride Carbon Dioxide Anion Gap BUN Creatinine Est Cr Clr Drug Dosing Est GFR ( Amer) Est GFR (Non-Af Amer) BUN/Creatinine Ratio Glucose Lactate Calcium Magnesium Total Bilirubin Direct Bilirubin AST ALT Alkaline Phosphatase Troponin I High Sens Total Protein Albumin Procalcitonin 0.79 H Urine Color Urine Appearance Urine pH Ur Specific Freeman Urine Protein Urine Glucose (UA) Urine Ketones Urine Blood Urine Nitrite Urine Bilirubin Urine Urobilinogen Ur Leukocyte Esterase Urine WBC (Auto) Urine RBC (Auto) U Hyaline Cast (Auto) U Epithel Cells (Auto) Urine Bacteria (Auto) Digoxin 1.2 SARS-CoV-2 (PCR) NEGATIVE Influenza Type A (PCR) Negative Influenza Type B (PCR) Negative RSV (RT-PCR) Negative 03/12/22 03/12/22 03/12/22 14:17 16:49 16:49 WBC RBC Hgb Hct MCV MCH MCHC RDW Std Deviation RDW Coeff of Aleyda Plt Count MPV Immature Gran % (Auto) Neut % (Auto) Lymph % (Auto) Rains % (Auto) Eos % (Auto) Baso % (Auto) Neut # (Auto) Lymph # (Auto) Rains # (Auto) Eos # (Auto) Baso # (Auto) Immature Gran # (Auto) PT INR APTT PTT Ratio Sodium Potassium Chloride Carbon Dioxide Anion Gap BUN Creatinine Est Cr Clr Drug Dosing Est GFR ( Amer) Est GFR (Non-Af Amer) BUN/Creatinine Ratio Glucose Lactate 2.1 H* 1.5 Calcium Magnesium Total Bilirubin Direct Bilirubin AST ALT Alkaline Phosphatase Troponin I High Sens Total Protein Albumin Procalcitonin Urine Color Yellow Urine Appearance Clear Urine pH 5.5 Ur Specific Freeman > 1.045 H Urine Protein Trace H Urine Glucose (UA) 3+ H Urine Ketones Negative Urine Blood Trace H Urine Nitrite Positive A Urine Bilirubin Negative Urine Urobilinogen Negative Ur Leukocyte Esterase 1+ H Urine WBC (Auto) >30 H Urine RBC (Auto) 5-10 H U Hyaline Cast (Auto) 1-5 U Epithel Cells (Auto) 0-5 Urine Bacteria (Auto) 4+ H Digoxin SARS-CoV-2 (PCR) Influenza Type A (PCR) Influenza Type B (PCR) RSV (RT-PCR) Diagnostic Findings I personally reviewed and interpreted the CT scan myself. I agree with the assessment of a small trace amount of fluid in the gallbladder fossa the do not feel this represents a significant infection. Cannot rule out a bile leak. Thickening of the bladder, correlate with cystitis. CT SCAN OF THE ABDOMEN AND PELVIS WITH IV CONTRAST CLINICAL HISTORY: Postoperative fever. Recent cholecystectomy. COMPARISON STUDY: Abdominal CT dated 02/18/2022. TECHNIQUE: Following the IV administration of 94 cc of Optiray 350, CT scan of the abdomen and pelvis is performed from the lung bases to the proximal femora. Images are reviewed in the axial, sagittal, and coronal planes. IV contrast was administered without complication. A dose lowering technique was utilized adhering to the principles of ALARA. The examination is degraded by motion artifact, as well as by streak artifact from the arms which could not be elevated above the abdomen. CT DOSE: 974.25 mGy.cm FINDINGS: Lung bases: The heart is normal in size and without pericardial effusion. The coronary arteries are densely calcified. There is elevation of the left hemidiaphragm with bibasilar scarring/atelectasis. A calcified granuloma seen at the left lung base. Liver: The contrast-enhanced liver is normal in size, contour, and attenuation. There is no intrahepatic biliary ductal dilatation. The hepatic veins and portal veins are patent. Gallbladder: The gallbladder is surgically absent noting clips in the gallbladder fossa. There is a pocket of fluid in the gallbladder fossa measuring approximately 8 x 1.5 cm seen on image #172. No gas is seen within this fluid. Spleen: Normal in size and attenuation. There are calcified splenic granulomas. Pancreas: Unremarkable. Adrenal glands: A 1.9 cm indeterminate right adrenal nodule is unchanged. The left adrenal gland is normal in appearance. Kidneys: The contrast enhanced kidneys are normal in size and without hydronephrosis. The kidneys enhance symmetrically. A 2.0 cm heterogeneously enhancing lesion is again seen arising from the upper pole of the right kidney on image #216. The 7.3 cm cyst arises from the right lower pole. Abdominal vasculature: There is advanced atherosclerotic calcification and mild ectasia of the abdominal aorta. Bowel: Mild to moderate fecal retention is seen throughout the colon. No bowel obstruction is identified. The appendix is well-visualized and normal. Peritoneum: There is no intraperitoneal free air or abdominal ascites. Lymphadenopathy: None. Pelvic viscera: Evaluation of the pelvis is degraded by streak artifact from a right hip arthroplasty. The prostate gland is enlarged and heterogeneous noting median lobe hypertrophy. The bladder is largely decompressed. The bladder wall is markedly thickened with surrounding inflammation. Gas is present in the bladder lumen. Skeletal structures: The skeletal structures are osteopenic. There is mild to moderate lumbosacral spondylosis. Mild chronic compression deformities are noted in the lower thoracic spine. No lytic or blastic lesions are seen. A right hip arthroplasty is in place. There is infiltration and foci of soft tissue gas surrounding the right hip. A fluid collection overlying the greater trochanter on image #[id number] intense foci of gas and measures approximately 6 x 4 x 4.5 cm. IMPRESSION: 1. Streak and motion compromised examination. 2. There is postsurgical change from interval cholecystectomy. A thin pocket of indeterminant fluid is seen in the gallbladder fossa as above. This could represent expected postoperative change/resolving hematoma. Bile leak or infection cannot be excluded by CT. Clinical correlation will be essential. If there is clinical concern for bile leak a nuclear hepatobiliary scan should be considered. 3. The bladder wall is markedly thickened with surrounding inflammation and intraluminal gas. The appearance is typical for cystitis. Correlate with clinical findings and urinalysis. 4. Soft tissue infiltration and foci of subcutaneous gas are seen overlying the right hip arthroplasty. There is a small fluid collection overlying the greater trochanter of the proximal femur as above. This could represent expected postoperative changes given recent surgery. The sterility of these findings cannot be assessed by imaging and clinical correlation will be essential. 5. There is a 2.0 cm complex enhancing nodule arising from the upper pole of the right kidney. Renal cell carcinoma is the diagnosis of exclusion. Nonemergent follow up with urology is recommended. 6. Additional findings as above. PG Care Time/CCT Total # of Minutes Spent Total Time Spent with Patient: Total time spent is greater than 50% in coordination of care (as documented) at patient's floor/unit and/or counseling patient: Coding Level of Care Code 79124 Office/Outpt Visit, New Diagnoses S/P cholecystectomy Z90.49
[2022-03-12] MEDS: SODIUM CHLORIDE 0.9% 1000ML 1,000 ML IV SCH (19:33)
[2022-03-12] MEDS: PANTOprazole 40 MG in SYRINGE 0 ML IV SCH (21:23)
[2022-03-12] MEDS: DOCUSATE SODIUM 100 MG CAP PO SCH (21:23)
[2022-03-12] MEDS: INSULIN ASPART PER UNIT SC SCH (21:23)
[2022-03-13] MEDS: PIPERACILLIN/TAZOBACTAM 3.375 GM in DEXTROSE 5% 100 ML IV SCH ×3 (01:05→17:29)
[2022-03-13] MEDS: SODIUM CHLORIDE 0.9% 1000ML 1,000 ML IV SCH (04:59)
--- NOTE | 2022-03-13 05:31 | Surgery Progress Note ---
Date of Service March 13, 2022 Assessment & Plan (1) S/P cholecystectomy: Plan: Patient is status post open cholecystectomy at [facility] in [place], [place]. Procedure was reportedly complicated by postoperative hemorrhagic shock requiring ICU stay as well as transfusion of blood products. CT currently shows a small amount of fluid in the gallbladder fossa A HIDA scan has been ordered to rule out a postoperative biliary leak Continue broad-spectrum antibiotics (patient is receiving Zosyn) until his ascertain if patient has a biliary leak or not If surgical intervention is required patient will be require return to [place] where his original surgery was performed Remainder of plan as directed by primary service Admission and Anticipated Discharge Date Admission Date: March 12, 2022 Supervising Physician Co-Signing Physician Notes Patient seen examined, agree with above. Admitted with lethargy. History of open cholecystectomy at [facility] complicated by hemorrhagic shock and prolonged stay, CT showed some fluid in the gallbladder fossa. Given his history this likely represents resolving hematoma or seroma. On exam he is afebrile stable vitals. Abdomen soft and nontender, incision healing well. Bilirubin is normal. Would recommend HIDA scan to rule out biliary leak, doubt this represents infection or significant bile leak given labs. Subjective Patient is resting comfortably in bed. At the present time he denies any nausea or vomiting. He also denies any significant abdominal pain. Physical Exam Gastrointestinal (Abdomen): Abdomen is soft, nonrigid, and nondistended. There is minimal pain with palpation. Results & Data ([facility]) Vital Signs (Past 12 Hours) Vital Signs Temp Pulse Pulse Pulse Pulse Resp BP 03/13/22 02:53 37.2 C 83 16 126/61 03/13/22 00:24 03/13/22 00:24 39.2 C H 89 16 141/67 H 03/13/22 00:24 87 03/12/22 23:24 37.6 C 82 18 125/62 03/12/22 19:23 37.6 C 88 18 126/58 L 03/12/22 18:52 39.2 C H 89 16 141/67 H 03/12/22 18:13 89 18 115/45 L Pulse Ox O2 Del Method 03/13/22 02:53 97 Room Air 03/13/22 00:24 Room Air 03/13/22 00:24 93 Room Air 03/13/22 00:24 03/12/22 23:24 94 Room Air 03/12/22 19:23 96 Room Air 03/12/22 18:52 93 Room Air 03/12/22 18:13 95 PG Care Time/CCT Total # of Minutes Spent Total Time Spent with Patient: Total time spent is greater than 50% in coordination of care (as documented) at patient's floor/unit and/or counseling patient: Coding Level of Care Code None Diagnoses S/P cholecystectomy Z90.49
[2022-03-13 06:31] LABS: Hematocrit (blood only) 27.4 % (40.1-51.0); Mean Corpuscular Hemoglobin 29.3 pg (25.0-34.0); Mean Corpuscular Hgb Conc 32.8 g/dL (32.0-36.0); Mean Corpuscular Volume 89.3 fL (80.0-100.0); Mean Platelet Volume 9.5 fL (9.4-12.4); Platelet Count 300 K/uL (130-400); RDW Coefficient of Variation 15.1 % (11.5-14.5); RDW Standard Deviation 48.2 fL (36.4-46.3); Red Blood Count 3.07 M/uL (4.63-6.08); White Blood Count 12.05 K/ul (4.8-10.8)
[2022-03-13 07:02] LABS: Albumin Globulin Ratio 0.8 (0.9-2); Albumin Level 2.7 gm/dl (3.4-5.0); BUN Creatinine Ratio 18.3 (10-20); Bilirubin,Total 0.6 mg/dl (0.2-1.0); Est GFR (African American) 104.2 ml/min; Est GFR (Non-African American) 89.9 ml/min; Globulin 3.5 gm/dl (2.5-4.0); Magnesium 1.8 mg/dl (1.7-2.4); Phosphorus 2.8 mg/dl (2.5-4.9); Potassium 3.5 mmol/L (3.5-5.1); Total Protein 6.2 gm/dl (6.0-8.3)
--- NOTE | 2022-03-13 07:13 | Electrocardiogram Report ---
Test Reason : Blood Pressure : / mmHG Vent. Rate : 096 BPM Atrial Rate : 096 BPM P-R Int : 178 ms QRS Dur : 122 ms QT Int : 338 ms P-R-T Axes : 023 -32 018 degrees QTc Int : 427 ms Poor data quality, interpretation may be adversely affected Normal sinus rhythm Left axis deviation Right bundle branch block Abnormal ECG When compared with ECG of 18-FEB-2022 14:29, Nonspecific T wave abnormality has replaced inverted T waves in Anterior leads QT has shortened Confirmed by Noel Fitzpatrick ([id number]) on 03/13/2022 7:12:50 AM Referred By: REFERRED SELF Confirmed By:Stanislav Fitzpatrick
[2022-03-13] MEDS: INSULIN ASPART PER UNIT SC SCH ×4 (07:49→22:11)
[2022-03-13] MEDS: DIGOXIN 0.25 MG TAB PO SCH (08:48)
[2022-03-13] MEDS: ASPIRIN 81 MG ECTAB PO SCH (08:48)
[2022-03-13] MEDS: PANTOprazole 40 MG in SYRINGE 0 ML IV SCH ×2 (08:48→22:13)
[2022-03-13] MEDS: DOCUSATE SODIUM 100 MG CAP PO SCH ×2 (08:48→22:13)
--- NOTE | 2022-03-13 11:28 | Hospitalist Progress Note ---
Date of Service March 13, 2022 Assessment & Plan (1) Sepsis: (2) Diabetes: (3) Paroxysmal supraventricular tachycardia: (4) HTN (hypertension): (5) Duodenal ulcer: Plan Patient is a 77-year-old male with past medical history of hypertension, PSVT, type 2 diabetes, recent history of hip fracture status postrepair in 01/31, recent history of acalculous cholecystitis status postcholecystectomy complicated by hemorrhagic shock in early February in [place] presents to the ED with abdominal pain, fever and lethargy. Sepsis POA ( 2/2 UTI vs biliary leak) POA, likely secondary to UTI versus biliary leak. History of cholecystectomy for acalculous cholecystitis in early February complicated by hemorrhagic shock. WBC elevated to 15.5 on presentation; febrile to 39.2C CT chest as above; postoperative changes/resolving hematoma versus biliary leak or infection. Bladder wall thickening. Urinalysis significant for positive nitrate with greater than 30 WBC and 4+ bacteria. Urine culture growing gram-negative bacilli. Plan; Continue on Zosyn for now; await identification and sensitivity of urine culture. Stop IV fluid. Advance diet as tolerated. Follow-up on blood culture. HIDA scan as per surgery recommendation; n.p.o. from midnight. --Renal ultrasound ordered in setting of complicated UTI and renal mass found in the CT scan. Chronic conditions; Duodenal ulcer seen on endoscopy in Februarycontinue on Protonix Hypertensionlisinopril, hydrochlorothiazide PSVTdigoxin Type 2 diabetes melitissliding scale insulin Discussed plan of care with daughter over the phone. Answered questions. DVT Heparin Full code Admission and Anticipated Discharge Date Admission Date: March 12, 2022 Subjective Patient seen and examined at bedside. He is sitting up on the bed eating breakfast; not in any distress. He reports that he was feeling feverish yesterday; denies chills. He denies any abdominal pain or urinary symptoms. Overnight, patient was febrile up to 39.2C. Review of Systems Review of Systems: All systems reviewed & are unremarkable except as noted in Subjective Physical Exam Physical Exam: Constitutional: Awake, oriented x3. Respiratory: normal respiratory effort, lungs clear to auscultation, no wheeze, rales, rhonchi. Normal insp/exp effort, no accessory muscle use Cardiovascular: RRR, no murmur, no edema Vessels: no JVD or carotid bruit Chest: normal inspection of chest Abdomen: Soft, nontender. Scar from previous surgery present; no drainage. Musculoskeletal: no cyanosis or clubbing, extremities motor strength 5/5 Skin: no rashes, warm and dry normal turgor Neurologic: PERRL, EOMI, accommodation nl, no face palsy, no dysarthria CN's II- XI intact bilaterally and moves all extremities Psychiatric: A+Ox3, euthymic affect Lymphatic: no cervical or axillary lymphadenopathy : deferred Results & Data Results & Data ([facility]) Vital Signs (Past 12 Hours) Vital Signs Temp Pulse Pulse Resp BP Pulse Ox O2 Del Method 03/13/22 11:00 36.9 C 77 18 121/62 93 Room Air 03/13/22 08:48 86 03/13/22 07:44 36.6 C 83 20 115/57 L 96 Room Air 03/13/22 07:06 81 03/13/22 02:53 37.2 C 83 16 126/61 97 Room Air 03/13/22 00:24 Room Air 03/13/22 00:24 39.2 C H 89 16 141/67 H 93 Room Air 03/13/22 00:24 87 Laboratory Results Laboratory Results WBC 12.05 K/ul (4.8-10.8) H 03/13/22 05:54 RBC 3.07 M/uL (4.63-6.08) L 03/13/22 05:54 Hgb 9.0 g/dl (14.0-18.0) L 03/13/22 05:54 Hct 27.4 % (40.1-51.0) L 03/13/22 05:54 MCV 89.3 fL (80.0-100.0) 03/13/22 05:54 MCH 29.3 pg (25.0-34.0) 03/13/22 05:54 MCHC 32.8 g/dL (32.0-36.0) 03/13/22 05:54 RDW Std Deviation 48.2 fL (36.4-46.3) H 03/13/22 05:54 RDW Coeff of Aleyda 15.1 % (11.5-14.5) H 03/13/22 05:54 Plt Count 300 K/uL (130-400) 03/13/22 05:54 MPV 9.5 fL (9.4-12.4) 03/13/22 05:54 Immature Gran % (Auto) 0.8 % 03/12/22 14:05 Neut % (Auto) 82.7 % 03/12/22 14:05 Lymph % (Auto) 10.3 % 03/12/22 14:05 [place] % (Auto) 5.6 % 03/12/22 14:05 Eos % (Auto) 0.3 % 03/12/22 14:05 Baso % (Auto) 0.3 % 03/12/22 14:05 Neut # (Auto) 12.83 K/uL (1.4-6.5) H 03/12/22 14:05 Lymph # (Auto) 1.59 K/uL (1.2-3.4) 03/12/22 14:05 [place] # (Auto) 0.86 K/uL (0.24-0.82) H 03/12/22 14:05 Eos # (Auto) 0.04 K/uL (0-0.50) 03/12/22 14:05 Baso # (Auto) 0.04 K/uL (0-0.2) 03/12/22 14:05 Immature Gran # (Auto) 0.13 K/uL (0.00-0.02) H 03/12/22 14:05 PT 11.9 Seconds (9.0-12.0) 03/12/22 14:05 INR 1.1 (0.9-1.1) 03/12/22 14:05 APTT 29.6 Seconds (21.0-31.0) 03/12/22 14:05 PTT Ratio 1.1 03/12/22 14:05 Sodium 134 mmol/L (136-145) L 03/13/22 05:54 Potassium 3.5 mmol/L (3.5-5.1) 03/13/22 05:54 Chloride 101 mmol/L (98-107) 03/13/22 05:54 Carbon Dioxide 27 mmol/L (21-32) 03/13/22 05:54 Anion Gap 6 (3-11) 03/13/22 05:54 BUN 13 mg/dl (6-23) 03/13/22 05:54 Creatinine 0.71 mg/dl (0.6-1.4) 03/13/22 05:54 Est Cr Clr Drug Dosing 99.0 ml/min 03/13/22 05:54 Est GFR ( Amer) 104.2 ml/min 03/13/22 05:54 Est GFR (Non-Af Amer) 89.9 ml/min 03/13/22 05:54 BUN/Creatinine Ratio 18.3 (10-20) 03/13/22 05:54 Glucose 92 mg/dl (70-99(Fasting)) 03/13/22 05:54 POC Glucose 117 mg/dl (70-99) H 03/13/22 11:32 Lactate 1.5 mmol/L (0.4-2.0) 03/12/22 16:49 Calcium 8.0 mg/dl (8.5-10.1) L 03/13/22 05:54 Phosphorus 2.8 mg/dl (2.5-4.9) 03/13/22 05:54 Magnesium 1.8 mg/dl (1.7-2.4) 03/13/22 05:54 Total Bilirubin 0.6 mg/dl (0.2-1.0) 03/13/22 05:54 Direct Bilirubin 0.2 mg/dl (0-0.2) 03/12/22 14:05 AST 20 U/L (13-39) 03/13/22 05:54 ALT 19 U/L (7-52) 03/13/22 05:54 Alkaline Phosphatase 81 U/L (34-104) 03/13/22 05:54 Troponin I High Sens 23.5 pg/ml (0-20) H D 03/12/22 14:05 Total Protein 6.2 gm/dl (6.0-8.3) 03/13/22 05:54 Albumin 2.7 gm/dl (3.4-5.0) L 03/13/22 05:54 Globulin 3.5 gm/dl (2.5-4.0) 03/13/22 05:54 Albumin/Globulin Ratio 0.8 (0.9-2) L 03/13/22 05:54 Procalcitonin 0.79 ng/ml (0-0.5) H 03/12/22 14:05 Urine Color Yellow 03/12/22 16:49 Urine Appearance Clear (Clear) 03/12/22 16:49 Urine pH 5.5 (4.5-7.5) 03/12/22 16:49 Ur Specific [place] > 1.045 (1.000-1.030) H 03/12/22 16:49 Urine Protein Trace (Negative) H 03/12/22 16:49 Urine Glucose (UA) 3+ (Negative) H 03/12/22 16:49 Urine Ketones Negative (Negative) 03/12/22 16:49 Urine Blood Trace (Negative) H 03/12/22 16:49 Urine Nitrite Positive (Negative) A 03/12/22 16:49 Urine Bilirubin Negative (Negative) 03/12/22 16:49 Urine Urobilinogen Negative (Negative) 03/12/22 16:49 Ur Leukocyte Esterase 1+ (Negative) H 03/12/22 16:49 Urine WBC (Auto) >30 /hpf (0-5) H 03/12/22 16:49 Urine RBC (Auto) 5-10 /hpf (0-4) H 03/12/22 16:49 U Hyaline Cast (Auto) 1-5 /lpf (0-5) 03/12/22 16:49 U Epithel Cells (Auto) 0-5 /lpf (0-5) 03/12/22 16:49 Urine Bacteria (Auto) 4+ (Negative) H 03/12/22 16:49 Digoxin 1.2 ng/ml (0.8-2.0) 03/12/22 14:05 SARS-CoV-2 (PCR) NEGATIVE (Negative) 03/12/22 14:08 Influenza Type A (PCR) Negative (Neg) 03/12/22 14:08 Influenza Type B (PCR) Negative (Neg) 03/12/22 14:08 RSV (RT-PCR) Negative (Neg) 03/12/22 14:08 Impressions Abdomen/Pelvis CT 03/12/22 13:34 CT SCAN OF THE ABDOMEN AND PELVIS WITH IV CONTRAST CLINICAL HISTORY: Postoperative fever. Recent cholecystectomy. COMPARISON STUDY: Abdominal CT dated 02/18/2022. TECHNIQUE: Following the IV administration of 94 cc of Optiray 350, CT scan of the abdomen and pelvis is performed from the lung bases to the proximal femora. Images are reviewed in the axial, sagittal, and coronal planes. IV contrast was administered without complication. A dose lowering technique was utilized adhering to the principles of ALARA. The examination is degraded by motion artifact, as well as by streak artifact from the arms which could not be elevated above the abdomen. CT DOSE: 974.25 mGy.cm FINDINGS: Lung bases: The heart is normal in size and without pericardial effusion. The coronary arteries are densely calcified. There is elevation of the left hemidiaphragm with bibasilar scarring/atelectasis. A calcified granuloma seen at the left lung base. Liver: The contrast-enhanced liver is normal in size, contour, and attenuation. There is no intrahepatic biliary ductal dilatation. The hepatic veins and portal veins are patent. Gallbladder: The gallbladder is surgically absent noting clips in the gallbladder fossa. There is a pocket of fluid in the gallbladder fossa measuring approximately 8 x 1.5 cm seen on image #172. No gas is seen within this fluid. Spleen: Normal in size and attenuation. There are calcified splenic granulomas. Pancreas: Unremarkable. Adrenal glands: A 1.9 cm indeterminate right adrenal nodule is unchanged. The left adrenal gland is normal in appearance. Kidneys: The contrast enhanced kidneys are normal in size and without hydronephrosis. The kidneys enhance symmetrically. A 2.0 cm heterogeneously enhancing lesion is again seen arising from the upper pole of the right kidney on image #216. The 7.3 cm cyst arises from the right lower pole. Abdominal vasculature: There is advanced atherosclerotic calcification and mild ectasia of the abdominal aorta. Bowel: Mild to moderate fecal retention is seen throughout the colon. No bowel obstruction is identified. The appendix is well-visualized and normal. Peritoneum: There is no intraperitoneal free air or abdominal ascites. Lymphadenopathy: None. Pelvic viscera: Evaluation of the pelvis is degraded by streak artifact from a right hip arthroplasty. The prostate gland is enlarged and heterogeneous noting median lobe hypertrophy. The bladder is largely decompressed. The bladder wall is markedly thickened with surrounding inflammation. Gas is present in the bladder lumen. Skeletal structures: The skeletal structures are osteopenic. There is mild to moderate lumbosacral spondylosis. Mild chronic compression deformities are noted in the lower thoracic spine. No lytic or blastic lesions are seen. A right hip arthroplasty is in place. There is infiltration and foci of soft tissue gas surrounding the right hip. A fluid collection overlying the greater trochanter on image #[id number] intense foci of gas and measures approximately 6 x 4 x 4.5 cm. IMPRESSION: 1. Streak and motion compromised examination. 2. There is postsurgical change from interval cholecystectomy. A thin pocket of indeterminant fluid is seen in the gallbladder fossa as above. This could represent expected postoperative change/resolving hematoma. Bile leak or infection cannot be excluded by CT. Clinical correlation will be essential. If there is clinical concern for bile leak a nuclear hepatobiliary scan should be considered. 3. The bladder wall is markedly thickened with surrounding inflammation and intraluminal gas. The appearance is typical for cystitis. Correlate with clinical findings and urinalysis. 4. Soft tissue infiltration and foci of subcutaneous gas are seen overlying the right hip arthroplasty. There is a small fluid collection overlying the greater trochanter of the proximal femur as above. This could represent expected postoperative changes given recent surgery. The sterility of these findings cannot be assessed by imaging and clinical correlation will be essential. 5. There is a 2.0 cm complex enhancing nodule arising from the upper pole of the right kidney. Renal cell carcinoma is the diagnosis of exclusion. Nonemergent follow up with urology is recommended. 6. Additional findings as above. ACT 112: Negative or not required by law. Electronically signed by: Vishal Hardin M.D. 03/12/2022 4:08 PM Chest X-Ray 03/12/22 13:34 SINGLE VIEW CHEST CLINICAL HISTORY: Sepsis. FINDINGS: 2 AP, portable, upright chest radiographs are compared to chest x-ray and chest CT dated 02/18/2022. The examination is degraded by portable technique and patient rotation. The heart is top normal in size noting atherosclerotic calcification of the thoracic aorta. There is chronic elevation of the left hemidiaphragm with bibasilar scarring/atelectasis. Scattered calcified granulomas are observed. No airspace consolidation or large pleural effusion is identified. No pneumothorax is seen. The skeletal structures are osteopenic. The bony thorax is grossly intact. IMPRESSION: No acute cardiopulmonary abnormality. ACT 112: Negative or not required by law. Electronically signed by: Vishal Hardin M.D. 03/12/2022 1:[address] 03/12/22 13:34 CT SCAN OF THE BRAIN WITHOUT IV CONTRAST CLINICAL HISTORY: Change in mental status. COMPARISON STUDY: CT of the brain dated 08/07/2019. TECHNIQUE: Unenhanced axial CT scan of the brain is performed from the vertex to the skull base. A dose lowering technique was utilized adhering to the principles of ALARA. CT DOSE: 994.59 mGy.cm FINDINGS: Brain parenchyma: There is age-related involutional change noting moderate patchy subcortical and periventricular microangiopathic disease. There is no hemorrhage, mass effect, or evidence of acute territorial ischemia by CT criteria. [place]-white matter differentiation is preserved. No extra-axial fluid collection is seen. Ventricles, sulci, cisterns: Prominent secondary to involutional change. Intracranial vasculature: There is atherosclerotic calcification of the cavernous carotid and vertebral arteries. Calvarium: Unremarkable. Sinuses and mastoids: The paranasal sinuses are clear. The mastoid air cells are well pneumatized. Orbits: The bony orbits are grossly intact. There are bilateral ocular lens implants. IMPRESSION: There is no hemorrhage, mass effect, or evidence of acute territorial ischemia by CT criteria. ACT 112: Negative or not required by law. Electronically signed by: Vishal Hardin M.D. 03/12/2022 3:24 PM
[2022-03-13] MEDS: HEPARIN SOD 5,000 UNIT/0.5 ML VIAL SQ SCH ×2 (13:43→22:13)
--- NOTE | 2022-03-13 14:23 | Pharmacy Report ---
Pharmacy Glycemic Sign Off Nt - Date of Service March 13, 2022 - Assessment & Plan ASSESSMENT: * Pharmacy consulted for glycemic management yesterday. * BSG's have ranged 83-124 mg/dL without any insulin being administered (although minimal po intake as well). * Novolog monotherapy currently active, with looser than weight-based moderate stress estimate parameters. * OK to sign off per Dr. Witt PLAN FOR INPATIENT GLYCEMIC CONTROL: No changes needed to current regimen. * Continue NovoLog per scale ACHS/Q6hrs while NPO * Goal range = 110 140 mg/dl * CF = 30 mg/dl/unit * CR = 1 unit for ever 10 g CHO consumed * Pharmacy is signing off of glycemic consult and will no longer be making adjustments to inpatient regimen. Please feel free to re-consult if needed. Thank you.
--- NOTE | 2022-03-13 14:56 | Ultrasound Report ---
US renal/blad retro comp HISTORY: 77 years-old Male UTI, evaluation of Mass in right upper pole acute urinary tract infection COMPARISON: CT abdomen and pelvis 03/12/2022 TECHNIQUE: Multiple real-time sonographic images of the kidneys and urinary bladder were obtained ass essing grayscale appearance and color flow FINDINGS: Limited exam secondary to patient inability to breath-hold and also overlying surgical bandages. The right kidney measures 12.2 cm in length. There is a hypoechoic lesion within the superior pole ri ght kidney measuring 2.1 x 1.9 x 2.1 cm demonstrating color flow. Cyst of the right kidney measures 6 .4 x 5.4 x 6.2 cm. No right-sided renal calculi or hydronephrosis. The left kidney measures 12.8 cm in length and is unremarkable without renal calculi or hydronephrosi s. Prostamegaly. Urinary bladder wall thickening and trabeculation is noted. Layering debris within the urinary bladder with bilateral ureteral jets. IMPRESSION: 1. 2.1 cm mass of the superior pole right kidney. Renal cell carcinoma is the diagnosis of exclusion. 2. No renal calculi or hydronephrosis. 3. Prostamegaly with evidence of chronic bladder outlet obstruction. ACT 112: Negative or not required by law. The above report was generated using voice recognition software. It may contain grammatical, syntax o r spelling errors. Electronically signed by: Eamon Samson M.D. 03/13/2022 2:53 PM
[2022-03-14] MEDS: PIPERACILLIN/TAZOBACTAM 3.375 GM in DEXTROSE 5% 100 ML IV SCH ×2 (00:57→10:08)
[2022-03-14] MEDS: HEPARIN SOD 5,000 UNIT/0.5 ML VIAL SQ SCH ×4 (05:30→21:06)
[2022-03-14 07:34] LABS: Basophils # (auto) 0.03 K/uL (0-0.2); Basophils % (auto) 0.5 %; Eosinophils # (auto) 0.14 K/uL (0-0.50); Eosinophils % (auto) 2.1 %; Hematocrit (blood only) 28.2 % (40.1-51.0); Hemoglobin 9.3 g/dl (14.0-18.0); Immature Granulocytes # (auto) 0.02 K/uL (0.00-0.02); Immature Granulocytes % (auto) 0.3 %; Lymphocytes # (auto) 1.37 K/uL (1.2-3.4); Lymphocytes % (auto) 20.7 %; Mean Corpuscular Hemoglobin 29.4 pg (25.0-34.0); Mean Corpuscular Volume 89.2 fL (80.0-100.0); Mean Platelet Volume 9.1 fL (9.4-12.4); Monocytes # (auto) 0.44 K/uL (0.24-0.82); Monocytes % (auto) 6.7 %; Neutrophils # (auto) 4.61 K/uL (1.4-6.5); Neutrophils % (auto) 69.7 %; Platelet Count 313 K/uL (130-400); RDW Standard Deviation 48.9 fL (36.4-46.3); Red Blood Count 3.16 M/uL (4.63-6.08); White Blood Count 6.61 K/ul (4.8-10.8)
[2022-03-14 07:48] LABS: Estimated Average Glucose 94 mg/dl; Hemoglobin A1C 4.9 % (4.5-5.6)
[2022-03-14 07:59] LABS: Albumin Globulin Ratio 0.8 (0.9-2); Albumin Level 2.7 gm/dl (3.4-5.0); BUN Creatinine Ratio 20.3 (10-20); Bilirubin,Total 0.4 mg/dl (0.2-1.0); Calcium 8.2 mg/dl (8.5-10.1); Creatinine Clr Calc Pharmacy 119.2 ml/min; Est GFR (African American) 112.4 ml/min; Globulin 3.6 gm/dl (2.5-4.0); Potassium 3.7 mmol/L (3.5-5.1); Total Protein 6.3 gm/dl (6.0-8.3)
--- NOTE | 2022-03-14 08:59 | Nuclear Medicine Report ---
NUCLEAR HEPATOBILIARY SCAN CLINICAL HISTORY: Fever and abdominal pain status post cholecystectomy. COMPARISON STUDY: Abdominal CT dated 03/12/2022. TECHNIQUE: Dynamic images of the liver and anterior abdomen were obtained every 5 minutes for a total of 35 minutes following the IV administration of 5.3 mCi of technetium 99m Mebrofenin. An additional delayed images were performed at 50 minutes. FINDINGS: The hepatobiliary scan shows prompt and homogeneous hepatic uptake. There is visualized act ivity within the intra and extrahepatic biliary tree at 10 minutes. There is normal biliary to bowel transit, with small bowel visualized by 15 minutes. There is no abnormal pooling of tracer within th e gallbladder fossa to indicate bile leak. IMPRESSION: There is no scintigraphic evidence of bile leak. ACT 112: Negative or not required by law. Electronically signed by: Vishal Hardin M.D. 03/14/2022 8:57 AM
[2022-03-14] MEDS: INSULIN ASPART PER UNIT SC SCH ×4 (09:04→20:41)
--- NOTE | 2022-03-14 09:30 | Ultrasound Report ---
ULTRASOUND BILATERAL LOWER EXTREMITY VENOUS CLINICAL HISTORY: Fever. Recent surgery. COMPARISON STUDY: Bilateral lower extremity venous ultrasound dated 02/07/2022. TECHNIQUE: Real-time, grayscale, and color Doppler sonography of the deep veins of the right and left lower extremity was performed from the inguinal crease to the calf. Compression and augmentation wer e utilized. FINDINGS: There is no sonographic evidence of deep venous thrombosis identified in the right or left lower extremity. The common femoral, superficial femoral, and popliteal veins are patent and normally compressible bilaterally. The greater saphenous vein and the profunda femoris vein at the junction w ith the common femoral vein are clear in both legs. The visualized calf veins are patent bilaterally. IMPRESSION: There is no sonographic evidence of deep venous thrombosis identified in the right or lef t lower extremity. ACT 112: Negative or not required by law. Electronically signed by: Vishal Hardin M.D. 03/14/2022 9:29 AM
[2022-03-14] MEDS: DIGOXIN 0.25 MG TAB PO SCH (10:07)
[2022-03-14] MEDS: ASPIRIN 81 MG ECTAB PO SCH (10:07)
[2022-03-14] MEDS: PANTOprazole 40 MG in SYRINGE 0 ML IV SCH ×2 (10:08→20:51)
[2022-03-14] MEDS: DOCUSATE SODIUM 100 MG CAP PO SCH ×2 (10:08→20:51)
--- NOTE | 2022-03-14 10:17 | Surgery Progress Note ---
Date of Service March 14, 2022 Assessment & Plan (1) S/P cholecystectomy: Plan: Pt with history of open cholecystectomy at [facility] here with lethargy, found to have fluid collection in GB fossa Today labs show WBC 6.6 (12), LFTs unremarkable- Tb: 0.4, AST: 52, ALT: 34, Alkp; 104 Low grade temp of 99F around 3am today, afebrile since Abdomen soft, non tender, incisions c/d/i HIDA scan was obtained today and negative for bile leak From our standpoint may resume a diet, no plans for surgical intervention Continue supportive care, complete course of abx for UTI, f/u with pt's surgeon upon discharge Admission and Anticipated Discharge Date Admission Date: March 12, 2022 Supervising Physician Co-Signing Physician Notes Patient seen and examined, labs reviewed, agree with above. 77-year-old male admitted with for lethargy and fatigue. He had a prior open cholecystectomy complicated by hemorrhagic shock and ICU stay while in [facility]. CT scan yesterday revealed small amount of fluid in the gallbladder fossa that could represent infection or bile leak. On exam his incision is healing well a nd his abdomen is soft and nontender. HIDA scan performed today and showed no evidence of bile leak. This does not appear to be an abscess either especially this far after surgery. Surgery will sign off, call with questions or concerns. Subjective Patient states he is feeling about the same. Generally fatigued. Denies abdominal pain/nausea/vomiting. Physical Exam Physical Exam: awake Gastrointestinal (Abdomen): Inspection/Auscultation: + abdominal surgical incision (c/d/i) Percussion/Palpation: abdomen soft; abdomen nontender Results & Data ([facility]) Vital Signs (Past 12 Hours) Vital Signs Temp Pulse Pulse Resp BP Pulse Ox O2 Del Method 03/14/22 10:07 77 03/14/22 07:34 37.1 C 77 18 133/69 96 Room Air 03/14/22 07:25 Room Air 03/14/22 07:06 79 03/14/22 03:06 37.6 C H 81 16 129/62 95 Room Air 03/13/22 23:11 38.2 C H 84 16 146/66 H 95 Room Air 03/13/22 23:06 85 PG Care Time/CCT Total # of Minutes Spent Total Time Spent with Patient: Total time spent is greater than 50% in coordination of care (as documented) at patient's floor/unit and/or counseling patient: Coding Level of Care Code 19925 Subseq Hosp Care Lvl 1 Diagnoses S/P cholecystectomy Z90.49
[2022-03-14] MEDS ORDERED: cefTRIAXone SODIUM 1,000 MG in DEXTROSE 5% 50 ML IV SCH (10:30)
[2022-03-14] MEDS: cefTRIAXone SODIUM 2,000 MG in DEXTROSE 5% 50 ML IV SCH (11:00)
--- NOTE | 2022-03-14 14:45 | Hospitalist Progress Note ---
Date of Service March 14, 2022 Assessment & Plan (1) Sepsis: (2) Diabetes: (3) Paroxysmal supraventricular tachycardia: (4) HTN (hypertension): (5) Duodenal ulcer: Plan Patient is a 77-year-old male with past medical history of hypertension, PSVT, type 2 diabetes, recent history of hip fracture status postrepair in 01/31, recent history of acalculous cholecystitis status postcholecystectomy complicated by hemorrhagic shock in early February in [place] presents to the ED with abdominal pain, fever and lethargy. Sepsis POA ( 2/2 UTI vs biliary leak) POA, likely secondary to UTI versus biliary leak. History of cholecystectomy for acalculous cholecystitis in early February complicated by hemorrhagic shock. WBC elevated to 15.5 on presentation; febrile to 39.2C CT chest as above; postoperative changes/resolving hematoma versus biliary leak or infection. Bladder wall thickening. Urinalysis significant for positive nitrate with greater than 30 WBC and 4+ bacteria. Urine culture growing gram-negative bacilli. HIDA scan shows no sign of biliary leak. Plan; --Urine culture shows Klebsiella pneumonia which is sensitive to ceftriaxone. Will switch Zosyn to ceftriaxone. Discontinue Meza, bladder scan every 8. Follow-up on blood culture. No growth so far --Will need outpatient urology follow-up for work-up for renal lesion. Chronic conditions; Duodenal ulcer seen on endoscopy in Februarycontinue on Protonix Hypertensionlisinopril, hydrochlorothiazide on hold as patient has on going sepsis PSVTdigoxin Type 2 diabetes melitissliding scale insulin Discussed plan of care with daughter over the phone. Answered questions. DVT Heparin Full code Admission and Anticipated Discharge Date Admission Date: March 12, 2022 Subjective Patient seen and examined at bedside. He is slightly more lethargic compared to yesterday. Spiked fever overnight as well with T-max of 38.2 F. Review of Systems Review of Systems: All systems reviewed & are unremarkable except as noted in Subjective Physical Exam Physical Exam: Constitutional: Lethargic but awake able via voice. Follows commands. Respiratory: normal respiratory effort, lungs clear to auscultation, no wheeze, rales, rhonchi. Normal insp/exp effort, no accessory muscle use Cardiovascular: RRR, no murmur, no edema Vessels: no JVD or carotid bruit Chest: normal inspection of chest Abdomen: Soft, nontender. Scar from previous surgery present; no drainage. Musculoskeletal: no cyanosis or clubbing, extremities motor strength 5/5 Skin: no rashes, warm and dry normal turgor Neurologic: PERRL, EOMI, accommodation nl, no face palsy, no dysarthria CN's II- XI intact bilaterally and moves all extremities Psychiatric: A+Ox3, euthymic affect Lymphatic: no cervical or axillary lymphadenopathy : deferred Results & Data Results & Data ([facility]) Vital Signs (Past 12 Hours) Vital Signs Temp Pulse Pulse Resp BP Pulse Ox O2 Del Method 03/14/22 11:40 36.6 C 74 20 132/68 98 Room Air 03/14/22 10:07 77 03/14/22 07:34 37.1 C 77 18 133/69 96 Room Air 03/14/22 07:25 Room Air 03/14/22 07:06 79 03/14/22 03:06 37.6 C H 81 16 129/62 95 Room Air Laboratory Results Laboratory Results WBC 6.61 K/ul (4.8-10.8) 03/14/22 07:04 RBC 3.16 M/uL (4.63-6.08) L 03/14/22 07:04 Hgb 9.3 g/dl (14.0-18.0) L 03/14/22 07:04 Hct 28.2 % (40.1-51.0) L 03/14/22 07:04 MCV 89.2 fL (80.0-100.0) 03/14/22 07:04 MCH 29.4 pg (25.0-34.0) 03/14/22 07:04 MCHC 33.0 g/dL (32.0-36.0) 03/14/22 07:04 RDW Std Deviation 48.9 fL (36.4-46.3) H 03/14/22 07:04 RDW Coeff of Aleyda 15.0 % (11.5-14.5) H 03/14/22 07:04 Plt Count 313 K/uL (130-400) 03/14/22 07:04 MPV 9.1 fL (9.4-12.4) L 03/14/22 07:04 Immature Gran % (Auto) 0.3 % 03/14/22 07:04 Neut % (Auto) 69.7 % 03/14/22 07:04 Lymph % (Auto) 20.7 % 03/14/22 07:04 [place] % (Auto) 6.7 % 03/14/22 07:04 Eos % (Auto) 2.1 % 03/14/22 07:04 Baso % (Auto) 0.5 % 03/14/22 07:04 Neut # (Auto) 4.61 K/uL (1.4-6.5) 03/14/22 07:04 Lymph # (Auto) 1.37 K/uL (1.2-3.4) 03/14/22 07:04 [place] # (Auto) 0.44 K/uL (0.24-0.82) 03/14/22 07:04 Eos # (Auto) 0.14 K/uL (0-0.50) 03/14/22 07:04 Baso # (Auto) 0.03 K/uL (0-0.2) 03/14/22 07:04 Immature Gran # (Auto) 0.02 K/uL (0.00-0.02) 03/14/22 07:04 PT 11.9 Seconds (9.0-12.0) 03/12/22 14:05 INR 1.1 (0.9-1.1) 03/12/22 14:05 APTT 29.6 Seconds (21.0-31.0) 03/12/22 14:05 PTT Ratio 1.1 03/12/22 14:05 Sodium 134 mmol/L (136-145) L 03/14/22 07:04 Potassium 3.7 mmol/L (3.5-5.1) 03/14/22 07:04 Chloride 101 mmol/L (98-107) 03/14/22 07:04 Carbon Dioxide 27 mmol/L (21-32) 03/14/22 07:04 Anion Gap 6 (3-11) 03/14/22 07:04 BUN 12 mg/dl (6-23) 03/14/22 07:04 Creatinine 0.59 mg/dl (0.6-1.4) L 03/14/22 07:04 Est Cr Clr Drug Dosing 119.2 ml/min 03/14/22 07:04 Est GFR ( Amer) 112.4 ml/min 03/14/22 07:04 Est GFR (Non-Af Amer) 97.0 ml/min 03/14/22 07:04 BUN/Creatinine Ratio 20.3 (10-20) H 03/14/22 07:04 Glucose 92 mg/dl (70-99(Fasting)) 03/14/22 07:04 POC Glucose 97 mg/dl (70-99) 03/14/22 11:37 Estimat Average Glucose 94 mg/dl 03/13/22 05:54 Hemoglobin A1c 4.9 % (4.5-5.6) 03/13/22 05:54 Lactate 1.5 mmol/L (0.4-2.0) 03/12/22 16:49 Calcium 8.2 mg/dl (8.5-10.1) L 03/14/22 07:04 Phosphorus 2.8 mg/dl (2.5-4.9) 03/13/22 05:54 Magnesium 1.8 mg/dl (1.7-2.4) 03/13/22 05:54 Total Bilirubin 0.4 mg/dl (0.2-1.0) 03/14/22 07:04 Direct Bilirubin 0.2 mg/dl (0-0.2) 03/12/22 14:05 AST 52 U/L (13-39) H 03/14/22 07:04 ALT 34 U/L (7-52) 03/14/22 07:04 Alkaline Phosphatase 104 U/L (34-104) 03/14/22 07:04 Troponin I High Sens 23.5 pg/ml (0-20) H D 03/12/22 14:05 Total Protein 6.3 gm/dl (6.0-8.3) 03/14/22 07:04 Albumin 2.7 gm/dl (3.4-5.0) L 03/14/22 07:04 Globulin 3.6 gm/dl (2.5-4.0) 03/14/22 07:04 Albumin/Globulin Ratio 0.8 (0.9-2) L 03/14/22 07:04 Procalcitonin 0.79 ng/ml (0-0.5) H 03/12/22 14:05 Urine Color Yellow 03/12/22 16:49 Urine Appearance Clear (Clear) 03/12/22 16:49 Urine pH 5.5 (4.5-7.5) 03/12/22 16:49 Ur Specific [place] > 1.045 (1.000-1.030) H 03/12/22 16:49 Urine Protein Trace (Negative) H 03/12/22 16:49 Urine Glucose (UA) 3+ (Negative) H 03/12/22 16:49 Urine Ketones Negative (Negative) 03/12/22 16:49 Urine Blood Trace (Negative) H 03/12/22 16:49 Urine Nitrite Positive (Negative) A 03/12/22 16:49 Urine Bilirubin Negative (Negative) 03/12/22 16:49 Urine Urobilinogen Negative (Negative) 03/12/22 16:49 Ur Leukocyte Esterase 1+ (Negative) H 03/12/22 16:49 Urine WBC (Auto) >30 /hpf (0-5) H 03/12/22 16:49 Urine RBC (Auto) 5-10 /hpf (0-4) H 03/12/22 16:49 U Hyaline Cast (Auto) 1-5 /lpf (0-5) 03/12/22 16:49 U Epithel Cells (Auto) 0-5 /lpf (0-5) 03/12/22 16:49 Urine Bacteria (Auto) 4+ (Negative) H 03/12/22 16:49 Digoxin 1.2 ng/ml (0.8-2.0) 03/12/22 14:05 SARS-CoV-2 (PCR) NEGATIVE (Negative) 03/12/22 14:08 Influenza Type A (PCR) Negative (Neg) 03/12/22 14:08 Influenza Type B (PCR) Negative (Neg) 03/12/22 14:08 RSV (RT-PCR) Negative (Neg) 03/12/22 14:08 Impressions Abdomen/Pelvis CT 03/12/22 13:34 CT SCAN OF THE ABDOMEN AND PELVIS WITH IV CONTRAST CLINICAL HISTORY: Postoperative fever. Recent cholecystectomy. COMPARISON STUDY: Abdominal CT dated 02/18/2022. TECHNIQUE: Following the IV administration of 94 cc of Optiray 350, CT scan of the abdomen and pelvis is performed from the lung bases to the proximal femora. Images are reviewed in the axial, sagittal, and coronal planes. IV contrast was administered without complication. A dose lowering technique was utilized adhering to the principles of ALARA. The examination is degraded by motion artifact, as well as by streak artifact from the arms which could not be elevated above the abdomen. CT DOSE: 974.25 mGy.cm FINDINGS: Lung bases: The heart is normal in size and without pericardial effusion. The coronary arteries are densely calcified. There is elevation of the left hemidiaphragm with bibasilar scarring/atelectasis. A calcified granuloma seen at the left lung base. Liver: The contrast-enhanced liver is normal in size, contour, and attenuation. There is no intrahepatic biliary ductal dilatation. The hepatic veins and portal veins are patent. Gallbladder: The gallbladder is surgically absent noting clips in the gallbladder fossa. There is a pocket of fluid in the gallbladder fossa measuring approximately 8 x 1.5 cm seen on image #172. No gas is seen within this fluid. Spleen: Normal in size and attenuation. There are calcified splenic granulomas. Pancreas: Unremarkable. Adrenal glands: A 1.9 cm indeterminate right adrenal nodule is unchanged. The left adrenal gland is normal in appearance. Kidneys: The contrast enhanced kidneys are normal in size and without hydronephrosis. The kidneys enhance symmetrically. A 2.0 cm heterogeneously enhancing lesion is again seen arising from the upper pole of the right kidney on image #216. The 7.3 cm cyst arises from the right lower pole. Abdominal vasculature: There is advanced atherosclerotic calcification and mild ectasia of the abdominal aorta. Bowel: Mild to moderate fecal retention is seen throughout the colon. No bowel obstruction is identified. The appendix is well-visualized and normal. Peritoneum: There is no intraperitoneal free air or abdominal ascites. Lymphadenopathy: None. Pelvic viscera: Evaluation of the pelvis is degraded by streak artifact from a right hip arthroplasty. The prostate gland is enlarged and heterogeneous noting median lobe hypertrophy. The bladder is largely decompressed. The bladder wall is markedly thickened with surrounding inflammation. Gas is present in the bladder lumen. Skeletal structures: The skeletal structures are osteopenic. There is mild to moderate lumbosacral spondylosis. Mild chronic compression deformities are noted in the lower thoracic spine. No lytic or blastic lesions are seen. A right hip arthroplasty is in place. There is infiltration and foci of soft tissue gas surrounding the right hip. A fluid collection overlying the greater trochanter on image #[id number] intense foci of gas and measures approximately 6 x 4 x 4.5 cm. IMPRESSION: 1. Streak and motion compromised examination. 2. There is postsurgical change from interval cholecystectomy. A thin pocket of indeterminant fluid is seen in the gallbladder fossa as above. This could represent expected postoperative change/resolving hematoma. Bile leak or infection cannot be excluded by CT. Clinical correlation will be essential. If there is clinical concern for bile leak a nuclear hepatobiliary scan should be considered. 3. The bladder wall is markedly thickened with surrounding inflammation and intraluminal gas. The appearance is typical for cystitis. Correlate with clinical findings and urinalysis. 4. Soft tissue infiltration and foci of subcutaneous gas are seen overlying the right hip arthroplasty. There is a small fluid collection overlying the greater trochanter of the proximal femur as above. This could represent expected postoperative changes given recent surgery. The sterility of these findings cannot be assessed by imaging and clinical correlation will be essential. 5. There is a 2.0 cm complex enhancing nodule arising from the upper pole of the right kidney. Renal cell carcinoma is the diagnosis of exclusion. Nonemergent follow up with urology is recommended. 6. Additional findings as above. ACT 112: Negative or not required by law. Electronically signed by: Vishal Hardin M.D. 03/12/2022 4:08 PM Chest X-Ray 03/12/22 13:34 SINGLE VIEW CHEST CLINICAL HISTORY: Sepsis. FINDINGS: 2 AP, portable, upright chest radiographs are compared to chest x-ray and chest CT dated 02/18/2022. The examination is degraded by portable technique and patient rotation. The heart is top normal in size noting atherosclerotic calcification of the thoracic aorta. There is chronic elevation of the left hemidiaphragm with bibasilar scarring/atelectasis. Scattered calcified granulomas are observed. No airspace consolidation or large pleural effusion is identified. No pneumothorax is seen. The skeletal structures are osteopenic. The bony thorax is grossly intact. IMPRESSION: No acute cardiopulmonary abnormality. ACT 112: Negative or not required by law. Electronically signed by: Vishal Hardin M.D. 03/12/2022 1:[address] 03/12/22 13:34 CT SCAN OF THE BRAIN WITHOUT IV CONTRAST CLINICAL HISTORY: Change in mental status. COMPARISON STUDY: CT of the brain dated 08/07/2019. TECHNIQUE: Unenhanced axial CT scan of the brain is performed from the vertex to the skull base. A dose lowering technique was utilized adhering to the principles of ALARA. CT DOSE: 994.59 mGy.cm FINDINGS: Brain parenchyma: There is age-related involutional change noting moderate patchy subcortical and periventricular microangiopathic disease. There is no hemorrhage, mass effect, or evidence of acute territorial ischemia by CT criteria. [place]-white matter differentiation is preserved. No extra-axial fluid collection is seen. Ventricles, sulci, cisterns: Prominent secondary to involutional change. Intracranial vasculature: There is atherosclerotic calcification of the cavernous carotid and vertebral arteries. Calvarium: Unremarkable. Sinuses and mastoids: The paranasal sinuses are clear. The mastoid air cells are well pneumatized. Orbits: The bony orbits are grossly intact. There are bilateral ocular lens implants. IMPRESSION: There is no hemorrhage, mass effect, or evidence of acute territorial ischemia by CT criteria. ACT 112: Negative or not required by law. Electronically signed by: Vishal Hardin M.D. 03/12/2022 3:24 PM Renal Ultrasound 03/13/22 12:02 US renal/blad retro comp HISTORY: 77 years-old Male UTI, evaluation of Mass in right upper pole acute urinary tract infection COMPARISON: CT abdomen and pelvis 03/12/2022 TECHNIQUE: Multiple real-time sonographic images of the kidneys and urinary bladder were obtained assessing grayscale appearance and color flow FINDINGS: Limited exam secondary to patient inability to breath-hold and also overlying surgical bandages. The right kidney measures 12.2 cm in length. There is a hypoechoic lesion within the superior pole right kidney measuring 2.1 x 1.9 x 2.1 cm demonstrating color flow. Cyst of the right kidney measures 6.4 x 5.4 x 6.2 cm. No right-sided renal calculi or hydronephrosis. The left kidney measures 12.8 cm in length and is unremarkable without renal calculi or hydronephrosis. Prostamegaly. Urinary bladder wall thickening and trabeculation is noted. Layering debris within the urinary bladder with bilateral ureteral jets. IMPRESSION: 1. 2.1 cm mass of the superior pole right kidney. Renal cell carcinoma is the diagnosis of exclusion. 2. No renal calculi or hydronephrosis. 3. Prostamegaly with evidence of chronic bladder outlet obstruction. ACT 112: Negative or not required by law. The above report was generated using voice recognition software. It may contain grammatical, syntax or spelling errors. Electronically signed by: Eamon Samson M.D. 03/13/2022 2:53 PM Hepatobiliary Scan Nuclear Medicine 03/14/22 08:00 NUCLEAR HEPATOBILIARY SCAN CLINICAL HISTORY: Fever and abdominal pain status post cholecystectomy. COMPARISON STUDY: Abdominal CT dated 03/12/2022. TECHNIQUE: Dynamic images of the liver and anterior abdomen were obtained every 5 minutes for a total of 35 minutes following the IV administration of 5.3 mCi of technetium 99m Mebrofenin. An additional delayed images were performed at 50 minutes. FINDINGS: The hepatobiliary scan shows prompt and homogeneous hepatic uptake. There is visualized activity within the intra and extrahepatic biliary tree at 10 minutes. There is normal biliary to bowel transit, with small bowel visualized by 15 minutes. There is no abnormal pooling of tracer within the gallbladder fossa to indicate bile leak. IMPRESSION: There is no scintigraphic evidence of bile leak. ACT 112: Negative or not required by law. Electronically signed by: Vishal Hardin M.D. 03/14/2022 8:57 AM Venous Doppler Study 03/14/22 08:25 ULTRASOUND BILATERAL LOWER EXTREMITY VENOUS CLINICAL HISTORY: Fever. Recent surgery. COMPARISON STUDY: Bilateral lower extremity venous ultrasound dated 02/07/2022. TECHNIQUE: Real-time, grayscale, and color Doppler sonography of the deep veins of the right and left lower extremity was performed from the inguinal crease to the calf. Compression and augmentation were utilized. FINDINGS: There is no sonographic evidence of deep venous thrombosis identified in the right or left lower extremity. The common femoral, superficial femoral, and popliteal veins are patent and normally compressible bilaterally. The great er saphenous vein and the profunda femoris vein at the junction with the common femoral vein are clear in both legs. The visualized calf veins are patent bilaterally. IMPRESSION: There is no sonographic evidence of deep venous thrombosis identified in the right or left lower extremity. ACT 112: Negative or not required by law. Electronically signed by: Vishal Hardin M.D. 03/14/2022 9:29 AM
[2022-03-14] MEDS: ACETAMINOPHEN 325 MG TAB PO PRN (20:52)
[2022-03-15] MEDS: HEPARIN SOD 5,000 UNIT/0.5 ML VIAL SQ SCH ×3 (05:42→21:37)
[2022-03-15] MEDS: DOCUSATE SODIUM 100 MG CAP PO SCH ×2 (08:03→21:36)
[2022-03-15] MEDS: ASPIRIN 81 MG ECTAB PO SCH (08:03)
[2022-03-15] MEDS: DIGOXIN 0.25 MG TAB PO SCH (08:03)
[2022-03-15] MEDS: PANTOprazole 40 MG in SYRINGE 0 ML IV SCH ×2 (08:04→21:36)
[2022-03-15] MEDS: INSULIN ASPART PER UNIT SC SCH ×4 (08:11→21:35)
[2022-03-15 08:37] LABS: Basophils # (auto) 0.02 K/uL (0-0.2); Basophils % (auto) 0.4 %; Eosinophils # (auto) 0.13 K/uL (0-0.50); Eosinophils % (auto) 2.9 %; Hematocrit (blood only) 32.9 % (40.1-51.0); Hemoglobin 10.8 g/dl (14.0-18.0); Immature Granulocytes # (auto) 0.03 K/uL (0.00-0.02); Immature Granulocytes % (auto) 0.7 %; Lymphocytes # (auto) 1.53 K/uL (1.2-3.4); Lymphocytes % (auto) 34.2 %; Mean Corpuscular Hgb Conc 32.8 g/dL (32.0-36.0); Mean Corpuscular Volume 88.2 fL (80.0-100.0); Mean Platelet Volume 9.2 fL (9.4-12.4); Monocytes # (auto) 0.48 K/uL (0.24-0.82); Monocytes % (auto) 10.7 %; Neutrophils # (auto) 2.28 K/uL (1.4-6.5); Neutrophils % (auto) 51.1 %; Platelet Count 368 K/uL (130-400); RDW Coefficient of Variation 14.9 % (11.5-14.5); RDW Standard Deviation 48.6 fL (36.4-46.3); Red Blood Count 3.73 M/uL (4.63-6.08); White Blood Count 4.47 K/ul (4.8-10.8)
[2022-03-15 10:43] LABS: Albumin Globulin Ratio 0.9 (0.9-2); BUN Creatinine Ratio 17.7 (10-20); Bilirubin,Total 0.3 mg/dl (0.2-1.0); Calcium 8.9 mg/dl (8.5-10.1); Creatinine Clr Calc Pharmacy 116.8 ml/min; Est GFR (African American) 110.1 ml/min; Globulin 3.2 gm/dl (2.5-4.0); Potassium 4.6 mmol/L (3.5-5.1); Total Protein 6.2 gm/dl (6.0-8.3)
[2022-03-15] MEDS: cefTRIAXone SODIUM 2,000 MG in DEXTROSE 5% 50 ML IV SCH (11:43)
--- NOTE | 2022-03-15 13:11 | Hospitalist Progress Note ---
Date of Service March 15, 2022 Assessment & Plan (1) Sepsis: (2) Diabetes: (3) Paroxysmal supraventricular tachycardia: (4) HTN (hypertension): (5) Duodenal ulcer: Plan Patient is a 77-year-old male with past medical history of hypertension, PSVT, type 2 diabetes, recent history of hip fracture status postrepair in 01/31, recent history of acalculous cholecystitis status postcholecystectomy complicated by hemorrhagic shock in early February in [place] presents to the ED with abdominal pain, fever and lethargy. Sepsis POA 2/2 Kleibsella pneumonia UTI Prostatomegaly with evidence of chronic Bladder outlet obstruction WBC elevated to 15.5 on presentation; febrile to 39.2C. WBC has trended down. He is also afebrile in last [address] chest as above; postoperative changes/resolving hematoma versus biliary leak or infection. Bladder wall thickening. Urinalysis significant for positive nitrate with greater than 30 WBC and 4+ bacteria. Urine culture Klebsiella pneumonia; pansensitive. HIDA scan shows no sign of biliary leak. Blood culture no growth till date Plan; --Urine culture shows Klebsiella pneumonia which is sensitive to ceftriaxone. Continue on ceftriaxone for now. We will switch him to oral Omnicef at discharge to complete 7-day course. --Patient has chronic bladder outlet obstruction with prostatomegaly which is likely the reason he has UTI. We will start him on tamsulosin. Continue to measure postvoid residual with bladder scan every 8 hours. He will need urology follow-up as outpatient for the same issue. He was also found to have 2.1 cm mass in superior pole of right kidney. -- PT OT ordered; given the patient is from subacute rehab. He would need repeat PT OT evaluation to get placement as per case management. Chronic conditions; Duodenal ulcer seen on endoscopy in Februarycontinue on Protonix Hypertensionlisinopril, hydrochlorothiazide resumed. PSVTdigoxin Type 2 diabetes melitissliding scale insulin Discussed plan of care with daughter over the phone. Answered questions. DVT Heparin Full code Admission and Anticipated Discharge Date Admission Date: March 12, 2022 Subjective Patient continues to void by himself in external catheter but bladder scan is positive for urinary retention. Patient repeatedly refused straight cath as well as Meza catheter placement. Review of Systems Review of Systems: All systems reviewed & are unremarkable except as noted in Subjective Physical Exam Physical Exam: Constitutional: Awake, oriented x3. Not in any distress. Respiratory: normal respiratory effort, lungs clear to auscultation, no wheeze, rales, rhonchi. Normal insp/exp effort, no accessory muscle use Cardiovascular: RRR, no murmur, no edema Vessels: no JVD or carotid bruit Chest: normal inspection of chest Abdomen: Soft, nontender. Scar from previous surgery present; no drainage. Musculoskeletal: no cyanosis or clubbing, extremities motor strength 5/5 Skin: no rashes, warm and dry normal turgor Neurologic: PERRL, EOMI, accommodation nl, no face palsy, no dysarthria CN's II- XI intact bilaterally and moves all extremities Psychiatric: A+Ox3, euthymic affect Lymphatic: no cervical or axillary lymphadenopathy : deferred Results & Data Results & Data ([facility]) Vital Signs (Past 12 Hours) Vital Signs Temp Pulse Pulse Resp BP Pulse Ox O2 Del Method 03/15/22 12:10 36.4 C L 71 20 149/72 H 97 Room Air 03/15/22 09:22 75 03/15/22 08:07 37.4 C 75 16 162/73 H 96 Room Air 03/15/22 08:03 76 03/15/22 02:41 36.5 C 77 18 133/66 96 Room Air Laboratory Results Laboratory Results WBC 4.47 K/ul (4.8-10.8) L 03/15/22 08:00 RBC 3.73 M/uL (4.63-6.08) L 03/15/22 08:00 Hgb 10.8 g/dl (14.0-18.0) L 03/15/22 08:00 Hct 32.9 % (40.1-51.0) L 03/15/22 08:00 MCV 88.2 fL (80.0-100.0) 03/15/22 08:00 MCH 29.0 pg (25.0-34.0) 03/15/22 08:00 MCHC 32.8 g/dL (32.0-36.0) 03/15/22 08:00 RDW Std Deviation 48.6 fL (36.4-46.3) H 03/15/22 08:00 RDW Coeff of Aleyda 14.9 % (11.5-14.5) H 03/15/22 08:00 Plt Count 368 K/uL (130-400) 03/15/22 08:00 MPV 9.2 fL (9.4-12.4) L 03/15/22 08:00 Immature Gran % (Auto) 0.7 % 03/15/22 08:00 Neut % (Auto) 51.1 % 03/15/22 08:00 Lymph % (Auto) 34.2 % 03/15/22 08:00 Smyth % (Auto) 10.7 % 03/15/22 08:00 Eos % (Auto) 2.9 % 03/15/22 08:00 Baso % (Auto) 0.4 % 03/15/22 08:00 Neut # (Auto) 2.28 K/uL (1.4-6.5) 03/15/22 08:00 Lymph # (Auto) 1.53 K/uL (1.2-3.4) 03/15/22 08:00 Smyth # (Auto) 0.48 K/uL (0.24-0.82) 03/15/22 08:00 Eos # (Auto) 0.13 K/uL (0-0.50) 03/15/22 08:00 Baso # (Auto) 0.02 K/uL (0-0.2) 03/15/22 08:00 Immature Gran # (Auto) 0.03 K/uL (0.00-0.02) H 03/15/22 08:00 PT 11.9 Seconds (9.0-12.0) 03/12/22 14:05 INR 1.1 (0.9-1.1) 03/12/22 14:05 APTT 29.6 Seconds (21.0-31.0) 03/12/22 14:05 PTT Ratio 1.1 03/12/22 14:05 Sodium 139 mmol/L (136-145) 03/15/22 08:00 Potassium 4.6 mmol/L (3.5-5.1) D 03/15/22 08:00 Chloride 104 mmol/L (98-107) 03/15/22 08:00 Carbon Dioxide 30 mmol/L (21-32) 03/15/22 08:00 Anion Gap 5 (3-11) 03/15/22 08:00 BUN 11 mg/dl (6-23) 03/15/22 08:00 Creatinine 0.62 mg/dl (0.6-1.4) 03/15/22 08:00 Est Cr Clr Drug Dosing 116.8 ml/min 03/15/22 08:00 Est GFR ( Amer) 110.1 ml/min 03/15/22 08:00 Est GFR (Non-Af Amer) 95.0 ml/min 03/15/22 08:00 BUN/Creatinine Ratio 17.7 (10-20) 03/15/22 08:00 Glucose 116 mg/dl (70-99(Fasting)) H 03/15/22 08:00 POC Glucose 135 mg/dl (70-99) H 03/15/22 12:07 Estimat Average Glucose 94 mg/dl 03/13/22 05:54 Hemoglobin A1c 4.9 % (4.5-5.6) 03/13/22 05:54 Lactate 1.5 mmol/L (0.4-2.0) 03/12/22 16:49 Calcium 8.9 mg/dl (8.5-10.1) 03/15/22 08:00 Phosphorus 2.8 mg/dl (2.5-4.9) 03/13/22 05:54 Magnesium 1.8 mg/dl (1.7-2.4) 03/13/22 05:54 Total Bilirubin 0.3 mg/dl (0.2-1.0) 03/15/22 08:00 Direct Bilirubin 0.2 mg/dl (0-0.2) 03/12/22 14:05 AST 47 U/L (13-39) H 03/15/22 08:00 ALT 36 U/L (7-52) 03/15/22 08:00 Alkaline Phosphatase 104 U/L (34-104) 03/15/22 08:00 Troponin I High Sens 23.5 pg/ml (0-20) H D 03/12/22 14:05 Total Protein 6.2 gm/dl (6.0-8.3) 03/15/22 08:00 Albumin 3.0 gm/dl (3.4-5.0) L 03/15/22 08:00 Globulin 3.2 gm/dl (2.5-4.0) 03/15/22 08:00 Albumin/Globulin Ratio 0.9 (0.9-2) 03/15/22 08:00 Procalcitonin 0.79 ng/ml (0-0.5) H 03/12/22 14:05 Urine Color Yellow 03/12/22 16:49 Urine Appearance Clear (Clear) 03/12/22 16:49 Urine pH 5.5 (4.5-7.5) 03/12/22 16:49 Ur Specific Fieldon > 1.045 (1.000-1.030) H 03/12/22 16:49 Urine Protein Trace (Negative) H 03/12/22 16:49 Urine Glucose (UA) 3+ (Negative) H 03/12/22 16:49 Urine Ketones Negative (Negative) 03/12/22 16:49 Urine Blood Trace (Negative) H 03/12/22 16:49 Urine Nitrite Positive (Negative) A 03/12/22 16:49 Urine Bilirubin Negative (Negative) 03/12/22 16:49 Urine Urobilinogen Negative (Negative) 03/12/22 16:49 Ur Leukocyte Esterase 1+ (Negative) H 03/12/22 16:49 Urine WBC (Auto) >30 /hpf (0-5) H 03/12/22 16:49 Urine RBC (Auto) 5-10 /hpf (0-4) H 03/12/22 16:49 U Hyaline Cast (Auto) 1-5 /lpf (0-5) 03/12/22 16:49 U Epithel Cells (Auto) 0-5 /lpf (0-5) 03/12/22 16:49 Urine Bacteria (Auto) 4+ (Negative) H 03/12/22 16:49 Digoxin 1.2 ng/ml (0.8-2.0) 03/12/22 14:05 SARS-CoV-2 (PCR) NEGATIVE (Negative) 03/12/22 14:08 Influenza Type A (PCR) Negative (Neg) 03/12/22 14:08 Influenza Type B (PCR) Negative (Neg) 03/12/22 14:08 RSV (RT-PCR) Negative (Neg) 03/12/22 14:08 Impressions Abdomen/Pelvis CT 03/12/22 13:34 CT SCAN OF THE ABDOMEN AND PELVIS WITH IV CONTRAST CLINICAL HISTORY: Postoperative fever. Recent cholecystectomy. COMPARISON STUDY: Abdominal CT dated 02/18/2022. TECHNIQUE: Following the IV administration of 94 cc of Optiray 350, CT scan of the abdomen and pelvis is performed from the lung bases to the proximal femora. Images are reviewed in the axial, sagittal, and coronal planes. IV contrast was administered without complication. A dose lowering technique was utilized adhering to the principles of ALARA. The examination is degraded by motion artifact, as well as by streak artifact from the arms which could not be elevated above the abdomen. CT DOSE: 974.25 mGy.cm FINDINGS: Lung bases: The heart is normal in size and without pericardial effusion. The coronary arteries are densely calcified. There is elevation of the left hemidiaphragm with bibasilar scarring/atelectasis. A calcified granuloma seen at the left lung base. Liver: The contrast-enhanced liver is normal in size, contour, and attenuation. There is no intrahepatic biliary ductal dilatation. The hepatic veins and portal veins are patent. Gallbladder: The gallbladder is surgically absent noting clips in the gallbladder fossa. There is a pocket of fluid in the gallbladder fossa measuring approximately 8 x 1.5 cm seen on image #172. No gas is seen within this fluid. Spleen: Normal in size and attenuation. There are calcified splenic granulomas. Pancreas: Unremarkable. Adrenal glands: A 1.9 cm indeterminate right adrenal nodule is unchanged. The left adrenal gland is normal in appearance. Kidneys: The contrast enhanced kidneys are normal in size and without hydronephrosis. The kidneys enhance symmetrically. A 2.0 cm heterogeneously enhancing lesion is again seen arising from the upper pole of the right kidney on image #216. The 7.3 cm cyst arises from the right lower pole. Abdominal vasculature: There is advanced atherosclerotic calcification and mild ectasia of the abdominal aorta. Bowel: Mild to moderate fecal retention is seen throughout the colon. No bowel obstruction is identified. The appendix is well-visualized and normal. Peritoneum: There is no intraperitoneal free air or abdominal ascites. Lymphadenopathy: None. Pelvic viscera: Evaluation of the pelvis is degraded by streak artifact from a right hip arthroplasty. The prostate gland is enlarged and heterogeneous noting median lobe hypertrophy. The bladder is largely decompressed. The bladder wall is markedly thickened with surrounding inflammation. Gas is present in the bladder lumen. Skeletal structures: The skeletal structures are osteopenic. There is mild to moderate lumbosacral spondylosis. Mild chronic compression deformities are noted in the lower thoracic spine. No lytic or blastic lesions are seen. A right hip arthroplasty is in place. There is infiltration and foci of soft tissue gas surrounding the right hip. A fluid collection overlying the greater trochanter on image #[id number] intense foci of gas and measures approximately 6 x 4 x 4.5 cm. IMPRESSION: 1. Streak and motion compromised examination. 2. There is postsurgical change from interval cholecystectomy. A thin pocket of indeterminant fluid is seen in the gallbladder fossa as above. This could represent expected postoperative change/resolving hematoma. Bile leak or infection cannot be excluded by CT. Clinical correlation will be essential. If there is clinical concern for bile leak a nuclear hepatobiliary scan should be considered. 3. The bladder wall is markedly thickened with surrounding inflammation and intraluminal gas. The appearance is typical for cystitis. Correlate with clinical findings and urinalysis. 4. Soft tissue infiltration and foci of subcutaneous gas are seen overlying the right hip arthroplasty. There is a small fluid collection overlying the greater trochanter of the proximal femur as above. This could represent expected postoperative changes given recent surgery. The sterility of these findings cannot be assessed by imaging and clinical correlation will be essential. 5. There is a 2.0 cm complex enhancing nodule arising from the upper pole of the right kidney. Renal cell carcinoma is the diagnosis of exclusion. Nonemergent follow up with urology is recommended. 6. Additional findings as above. ACT 112: Negative or not required by law. Electronically signed by: Vishal Hardin M.D. 03/12/2022 4:08 PM Chest X-Ray 03/12/22 13:34 SINGLE VIEW CHEST CLINICAL HISTORY: Sepsis. FINDINGS: 2 AP, portable, upright chest radiographs are compared to chest x-ray and chest CT dated 02/18/2022. The examination is degraded by portable technique and patient rotation. The heart is top normal in size noting atherosclerotic calcification of the thoracic aorta. There is chronic elevation of the left hemidiaphragm with bibasilar scarring/atelectasis. Scattered calcified granulomas are observed. No airspace consolidation or large pleural effusion is identified. No pneumothorax is seen. The skeletal structures are osteopenic. The bony thorax is grossly intact. IMPRESSION: No acute cardiopulmonary abnormality. ACT 112: Negative or not required by law. Electronically signed by: Vishal Hardin M.D. 03/12/2022 1:[address] 03/12/22 13:34 CT SCAN OF THE BRAIN WITHOUT IV CONTRAST CLINICAL HISTORY: Change in mental status. COMPARISON STUDY: CT of the brain dated 08/07/2019. TECHNIQUE: Unenhanced axial CT scan of the brain is performed from the vertex to the skull base. A dose lowering technique was utilized adhering to the pr inciples of AUGUST. CT DOSE: 994.59 mGy.cm FINDINGS: Brain parenchyma: There is age-related involutional change noting moderate patchy subcortical and periventricular microangiopathic disease. There is no hemorrhage, mass effect, or evidence of acute territorial ischemia by CT criteria. Cornell-white matter differentiation is preserved. No extra-axial fluid collection is seen. Ventricles, sulci, cisterns: Prominent secondary to involutional change. Intracranial vasculature: There is atherosclerotic calcification of the cavernous carotid and vertebral arteries. Calvarium: Unremarkable. Sinuses and mastoids: The paranasal sinuses are clear. The mastoid air cells are well pneumatized. Orbits: The bony orbits are grossly intact. There are bilateral ocular lens implants. IMPRESSION: There is no hemorrhage, mass effect, or evidence of acute territorial ischemia by CT criteria. ACT 112: Negative or not required by law. Electronically signed by: Vishal Hardin M.D. 03/12/2022 3:24 PM Renal Ultrasound 03/13/22 12:02 US renal/blad retro comp HISTORY: 77 years-old Male UTI, evaluation of Mass in right upper pole acute urinary tract infection COMPARISON: CT abdomen and pelvis 03/12/2022 TECHNIQUE: Multiple real-time sonographic images of the kidneys and urinary bladder were obtained assessing grayscale appearance and color flow FINDINGS: Limited exam secondary to patient inability to breath-hold and also overlying surgical bandages. The right kidney measures 12.2 cm in length. There is a hypoechoic lesion within the superior pole right kidney measuring 2.1 x 1.9 x 2.1 cm demonstrating color flow. Cyst of the right kidney measures 6.4 x 5.4 x 6.2 cm. No right-sided renal calculi or hydronephrosis. The left kidney measures 12.8 cm in length and is unremarkable without renal calculi or hydronephrosis. Prostamegaly. Urinary bladder wall thickening and trabeculation is noted. Layering debris within the urinary bladder with bilateral ureteral jets. IMPRESSION: 1. 2.1 cm mass of the superior pole right kidney. Renal cell carcinoma is the diagnosis of exclusion. 2. No renal calculi or hydronephrosis. 3. Prostamegaly with evidence of chronic bladder outlet obstruction. ACT 112: Negative or not required by law. The above report was generated using voice recognition software. It may contain grammatical, syntax or spelling errors. Electronically signed by: Eamon Samson M.D. 03/13/2022 2:53 PM Hepatobiliary Scan Nuclear Medicine 03/14/22 08:00 NUCLEAR HEPATOBILIARY SCAN CLINICAL HISTORY: Fever and abdominal pain status post cholecystectomy. COMPARISON STUDY: Abdominal CT dated 03/12/2022. TECHNIQUE: Dynamic images of the liver and anterior abdomen were obtained every 5 minutes for a total of 35 minutes following the IV administration of 5.3 mCi of technetium 99m Mebrofenin. An additional delayed images were performed at 50 minutes. FINDINGS: The hepatobiliary scan shows prompt and homogeneous hepatic uptake. There is visualized activity within the intra and extrahepatic biliary tree at 10 minutes. There is normal biliary to bowel transit, with small bowel visualized by 15 minutes. There is no abnormal pooling of tracer within the gallbladder fossa to indicate bile leak. IMPRESSION: There is no scintigraphic evidence of bile leak. ACT 112: Negative or not required by law. Electronically signed by: Vishal Hardin M.D. 03/14/2022 8:57 AM Venous Doppler Study 03/14/22 08:25 ULTRASOUND BILATERAL LOWER EXTREMITY VENOUS CLINICAL HISTORY: Fever. Recent surgery. COMPARISON STUDY: Bilateral lower extremity venous ultrasound dated 02/07/2022. TECHNIQUE: Real-time, grayscale, and color Doppler sonography of the deep veins of the right and left lower extremity was performed from the inguinal crease to the calf. Compression and augmentation were utilized. FINDINGS: There is no sonographic evidence of deep venous thrombosis identified in the right or left lower extremity. The common femoral, superficial femoral, and popliteal veins are patent and normally compressible bilaterally. The greater saphenous vein and the profunda femoris vein at the junction with the common femoral vein are clear in both legs. The visualized calf veins are patent bilaterally. IMPRESSION: There is no sonographic evidence of deep venous thrombosis identified in the right or left lower extremity. ACT 112: Negative or not required by law. Electronically signed by: Vishal Hardin M.D. 03/14/2022 9:29 AM
[2022-03-15] MEDS: LISINOPRIL/HCTZ 20/12.5MG 1 TAB TAB PO SCH (14:52)
[2022-03-15] MEDS: ACETAMINOPHEN 325 MG TAB PO PRN (21:35)
[2022-03-15] MEDS: TAMSULOSIN HCL 0.4 MG CAP PO SCH (21:36)
[2022-03-16] MEDS: HEPARIN SOD 5,000 UNIT/0.5 ML VIAL SQ SCH ×3 (05:28→21:08)
[2022-03-16 07:38] LABS: Basophils # (auto) 0.03 K/uL (0-0.2); Basophils % (auto) 0.4 %; Eosinophils # (auto) 0.12 K/uL (0-0.50); Eosinophils % (auto) 1.8 %; Hematocrit (blood only) 31.5 % (40.1-51.0); Hemoglobin 10.4 g/dl (14.0-18.0); Immature Granulocytes # (auto) 0.05 K/uL (0.00-0.02); Immature Granulocytes % (auto) 0.7 %; Lymphocytes # (auto) 1.78 K/uL (1.2-3.4); Lymphocytes % (auto) 26.7 %; Mean Corpuscular Volume 87.7 fL (80.0-100.0); Mean Platelet Volume 8.9 fL (9.4-12.4); Monocytes # (auto) 0.53 K/uL (0.24-0.82); Monocytes % (auto) 7.9 %; Neutrophils # (auto) 4.16 K/uL (1.4-6.5); Neutrophils % (auto) 62.5 %; Platelet Count 350 K/uL (130-400); Red Blood Count 3.59 M/uL (4.63-6.08); White Blood Count 6.67 K/ul (4.8-10.8)
[2022-03-16] MEDS: DIGOXIN 0.25 MG TAB PO SCH (07:59)
[2022-03-16] MEDS: LISINOPRIL/HCTZ 20/12.5MG 1 TAB TAB PO SCH (07:59)
[2022-03-16] MEDS: ASPIRIN 81 MG ECTAB PO SCH (08:00)
[2022-03-16] MEDS: PANTOprazole 40 MG in SYRINGE 0 ML IV SCH ×2 (08:00→21:10)
[2022-03-16] MEDS: DOCUSATE SODIUM 100 MG CAP PO SCH ×2 (08:00→21:15)
[2022-03-16 08:03] LABS: Albumin Globulin Ratio 0.9 (0.9-2); Albumin Level 2.9 gm/dl (3.4-5.0); BUN Creatinine Ratio 19.6 (10-20); Bilirubin,Total 0.3 mg/dl (0.2-1.0); Calcium 8.6 mg/dl (8.5-10.1); Creatinine Clr Calc Pharmacy 123.6 ml/min; Est GFR (African American) 114.8 ml/min; Est GFR (Non-African American) 99.1 ml/min; Globulin 3.2 gm/dl (2.5-4.0); Potassium 3.8 mmol/L (3.5-5.1); Total Protein 6.1 gm/dl (6.0-8.3)
[2022-03-16] MEDS: INSULIN ASPART PER UNIT SC SCH ×4 (09:08→21:06)
[2022-03-16] MEDS: ACETAMINOPHEN 325 MG TAB PO PRN (09:12)
[2022-03-16] MEDS: cefTRIAXone SODIUM 2,000 MG in DEXTROSE 5% 50 ML IV SCH (11:12)
--- NOTE | 2022-03-16 14:34 | Urology Consultation ---
Date of Consultation March 16, 2022 Assessment & Plan (1) Urinary retention: (2) Renal mass: (3) UTI (urinary tract infection): Plan 77yo M admitted with sepsis/UTI. CT a/p imaging on arrival notable for bladder thickening and a 2.0 cm complex enhancing nodule arising from the upper pole of the right kidney. Renal ultrasound with prostatomegaly with evidence of chronic bladder outlet obstruction, no renal calculi or hydronephrosis, and right kidney mass. -Urology consulted for bladder outlet obstruction and right renal mass. -Currently has an external catheter in place, draining clear yellow urine. -Has been bladder scanned for volumes ranging from 375-1064ml, but has adamantly refused Valladares catheter insertion. -He is afebrile and hemodynamically stable. -Labs reviewed White count 6.67, creatinine 0.56. -Urine culture final with Klebsiella; Blood cultures prelim no growth x48 hours. -Continues on IV ceftriaxone, follow cultures -Again, we discussed recommendation for Valladares catheter insertion for bladder decompression and maximum drainage given his UTI, however patient declined. Recommend continuing to monitor, bladder scan Q8H. Straight cath prn. Encouraged double voiding. -We will arrange outpatient visit with our service for follow-up of his right re nal mass and urinary retention. Pt agreeable. -Continue supportive care, antibiotic therapy, and Flomax. -Urology will sign-off. Please contact us with any further questions, concerns, or changes in patient's status. Supervising Physician Co-Signing Physician Notes Discussed patient with PAUL. Agree with plan. Recommend valladares but patient refusing. Can follow renal mass as an outpatient. Urology to sign off. History of Present Illness Reason for Consultation: Bladder outlet obstruction Attending Physician: Raymond Nieto MD History of Present Illness 77-year-old male with past medical history of hypertension, PSVT, type 2 diabetes, recent history of hip fracture s/p repair 01/31, recent history of acalculous cholecystitis status postcholecystectomy complicated by hemorrhagic shock in early February in [place] who presented to the ED with abdominal pain, fever and lethargy and admitted with sepsis 2/2 UTI vs. biliary leak. Urology consulted for bladder outlet obstruction. Patient examined at bedside today. Awake, resting in bed on arrival. No acute distress. External catheter intact, draining clear yellow urine. Documented urine output overnight was 1950ml. He has had several bladder scans ranging from 375-1064ml. Pt has refused Valladares catheter insertion. He does not have any urinary issues or complaints today. Feels he is emptying his bladder. Denies abdominal, suprapubic, or flank pain. Denies urgency, frequency, hesitancy. Stream ok. No fevers or chills. Denies nausea/vomiting. Denies any urinary symptoms or issues at baseline. Denies prior hx of urological issues. States his PCP does yearly PSA levels. CT abdomen pelvis 03/12. Streak and motion compromised examination. 2. There is postsurgical change from interval cholecystectomy. A thin pocket of indeterminant fluid is seen in the gallbladder fossa as above. This could represent expected postoperative change/resolving hematoma. Bile leak or infection cannot be excluded by CT. Clinical correlation will be essential. If there is clinical concern for bile leak a nuclear hepatobiliary scan should be considered. 3. The bladder wall is markedly thickened with surrounding inflammation and intraluminal gas. The appearance is typical for cystitis. Correlate with clinical findings and urinalysis. 4. Soft tissue infiltration and foci of subcutaneous gas are seen overlying the right hip arthroplasty. There is a small fluid collection overlying the greater trochanter of the proximal femur as above. This could represent expected postoperative changes given recent surgery. The sterility of these findings cannot be assessed by imaging and clinical correlation will be essential. 5. There is a 2.0 cm complex enhancing nodule arising from the upper pole of the right kidney. Renal cell carcinoma is the diagnosis of exclusion. Nonemergent follow up with urology is recommended. Renal ultrasound . 2.1 cm mass of the superior pole right kidney. Renal cell carcinoma is the diagnosis of exclusion. 2. No renal calculi or hydronephrosis. 3. Prostamegaly with evidence of chronic bladder outlet obstruction. Allergies Allergy/AdvReac Type Severity Reaction Status Date / Time oxycodone AdvReac lethargy Verified 02/05/22 21:42 Home Medications Medication Instructions Recorded Confirmed Type atorvastatin 20 mg tablet 20 mg PO DAILY #30 tabs 02/09/22 03/12/22 Rx canagliflozin 300 mg tablet 300 mg PO DAILY #30 tabs 02/09/22 03/12/22 Rx (Invokana) digoxin 250 mcg (0.25 mg) tablet 250 mcg PO DAILY #30 tabs 02/09/22 03/12/22 Rx docusate sodium 100 mg capsule 100 mg PO BID #60 caps 02/09/22 03/12/22 Rx (Stool Softener) ferrous gluconate 324 mg (38 mg 324 mg PO QAM #30 tabs 02/09/22 03/12/22 Rx iron) tablet lisinopril 20 1 tab PO DAILY #30 tabs 02/09/22 03/12/22 Rx mg-hydrochlorothiazide 25 mg tablet metformin 1,000 mg tablet 1,000 mg PO BID #60 tabs 02/09/22 03/12/22 Rx multivitamin 1 tab PO DAILY #30 tabs 02/09/22 03/12/22 Rx omega 2-ndz-igh-fish oil 1,000 mg 2 cap PO DAILY #60 caps 02/09/22 03/12/22 Rx (120 mg-180 mg) capsule (Fish Oil) sennosides 8.6 mg tablet (Senokot) 17.2 mg PO HS #30 tabs 02/09/22 03/12/22 Rx tramadol 50 mg tablet 25 mg PO Q6H PRN Severe pain #14 02/09/22 03/12/22 Rx tabs acetaminophen 325 mg tablet 650 mg PO TID 02/18/22 03/12/22 History alpha lipoic acid 600 mg tablet 1,200 mg PO DAILY 02/18/22 03/12/22 History aspirin 81 mg tablet,delayed 81 mg PO DAILY 02/18/22 03/12/22 History release glipizide 10 mg tablet, extended 10 mg PO AMPM 02/18/22 03/12/22 History release 24 hr potassium chloride 20 mEq 20 meq PO DAILY 02/18/22 03/12/22 History tablet,extended release(part/cryst) Patient History Medical History Closed fracture of right hip Diabetes Duodenal ulcer Gastritis Heart disease HTN (hypertension) Paroxysmal supraventricular tachycardia Surgical History History of total hip arthroplasty S/P cholecystectomy Family History Other Cancer Lung disease Social History Smoking Status: Former smoker Second Hand Exposure: No; Hx Alcohol Use: No Hx Substance Use: No Preferred Language: Moldovan Communication Ability: Effective Reimbursement Auditor Required: No Beliefs That Will Affect Care: None marital status: Current Living Situation: Spouse How many Children do You have: 2 Feels Safe at Home: Yes Assistive Devices: Walker Review of Systems Review of Systems: All systems reviewed & are unremarkable except as noted in HPI & below Physical Exam Constitutional: no acute distress Neck: normal visual inspection Respiratory: no respiratory distress and no labored breathing Gastrointestinal (Abdomen): Inspection/Auscultation: abdomen normal to inspection Musculoskeletal: Head/Neck/Chest: normocephalic Skin: No visible rashes or lesions to exposed skin areas Neurologic: awake Psychiatric: Orientation: alert and oriented x 3 Genitourinary: External catheter in place, draining clear yellow urine. Results & Data ([facility]) Vital Signs (Past 12 Hours) Vital Signs Temp Pulse Pulse Resp BP Pulse Ox O2 Del Method 03/16/22 11:32 36.6 C 79 18 115/66 96 Room Air 03/16/22 07:59 86 03/16/22 07:48 36.4 C 86 18 145/69 H 96 Room Air 03/16/22 02:27 36.9 C 73 18 159/70 H 98 Room Air PG Care Time/CCT Total # of Minutes Spent Total Time Spent with Patient: Total time spent is greater than 50% in coordination of care (as documented) at patient's floor/unit and/or counseling patient: Coding Level of Care Code 02322 Initial Inpt Care Lvl 2 Diagnoses Urinary retention R33.9 Renal mass N28.89 UTI (urinary tract infection) N39.0
--- NOTE | 2022-03-16 18:31 | Hospitalist Progress Note ---
Date of Service March 16, 2022 Assessment & Plan (1) Sepsis: (2) Diabetes: (3) Paroxysmal supraventricular tachycardia: (4) HTN (hypertension): (5) Duodenal ulcer: Plan Patient is a 77 yr male with H/O Hypertension, PSVT, type 2 diabetes, recent history of hip fracture status postrepair in 01/31, recent history of acalculous cholecystitis status postcholecystectomy complicated by hemorrhagic shock in early February in [place] presents to the ED with abdominal pain, fever and lethargy. Sepsis POA 2/ Kleibsella pneumonia Complicated UTI Prostatomegaly with evidence of chronic Bladder outlet obstruction Metabolic encephalopathy-POA --CT ABD:The bladder wall is markedly thickened with surrounding inflammation and intraluminal gas. The appearance is typical for cystitis. Correlate with clinical findings and urinalysis. -- Blood cultures negative to date Urine culture Klebsiella pneumonia Continue ceftriaxone SNF as able H/O acalculus cholecystitis S/P cholecystectomy --CT ABD:There is postsurgical change from interval cholecystectomy. A thin pocket of indeterminant fluid is seen in the gallbladder fossa as above. This could represent expected postoperative change/resolving hematoma. Bile leak or infection cannot be excluded by CT. Clinical correlation will be essential. If there is clinical concern for bile leak a nuclear hepatobiliary scan should be considered. --HID Scan:There is a 2.0 cm complex enhancing nodule arising from the upper pole of the right kidney. Renal cell carcinoma is the diagnosis of exclusion Follow-up as outpatient Right renal mass CT ABD:There is a 2.0 cm complex enhancing nodule arising from the upper pole of the right kidney. Renal cell carcinoma is the diagnosis of exclusion Appreciate urology input Needs follow-up with urology upon discharge Chronic bladder outlet obstruction with prostatomegaly Urinary retention Patient refuses Meza catheter placement Bladder scan as needed Urology on board Currently on Flomax Straight cath as needed Chronic conditions: Duodenal ulcer seen on endoscopy in Februarycontinue on Protonix HypertensionOn lisinopril, hydrochlorothiazide PSVTdigoxin Type 2 diabetes melitissliding scale insulin DVT Px: Heparin SQ Code Status Full code Admission and Anticipated Discharge Date Admission Date: March 12, 2022 Subjective Patient is seen and examined at bedside States having chronic right hip pain Denies any chest pain, dyspnea, dizziness, nausea, abdominal pain Offers no other complaints Discussed with urology today Patient adamantly refuses Meza placement Review of Systems Review of Systems: All systems reviewed & are unremarkable except as noted in Subjective Physical Exam Physical Exam: Physical Exam: Vitals signs as noted above General Appearance:Thin, frail, chronic ill, no distress Head: normocephalic, Atraumatic Eyes: normal inspection, EOMI Neck: supple, Trachea midline Respiratory/Chest: Normal breath sounds, CTA, No accessory muscle use Cardiovascular: S1, S2, + murmur Abdomen/GI:Soft, Non tender, +Surgical scars, Bowel sounds present Extremities/Musculoskeletal:normal inspection, Trace edema Neurologic/Psych:AAOX3, grossly no focal neurological deficits Skin: normal color, warm Results & Data Results & Data ([facility]) Vital Signs (Past 12 Hours) Vital Signs Temp Pulse Pulse Resp BP Pulse Ox O2 Del Method 03/16/22 15:08 36.8 C 83 15 118/62 97 Room Air 03/16/22 11:32 36.6 C 79 18 115/66 96 Room Air 03/16/22 07:59 86 03/16/22 07:48 36.4 C 86 18 145/69 H 96 Room Air Laboratory Results Short CBC 03/16/22 Range/Units 07:21 WBC 6.67 (4.8-10.8) K/ul Hgb 10.4 L (14.0-18.0) g/dl Hct 31.5 L (40.1-51.0) % Plt Count 350 (130-400) K/uL BMP 03/16/22 07:21 Sodium 137 Potassium 3.8 Chloride 104 Carbon Dioxide 27 BUN 11 Creatinine 0.56 L Glucose 160 H Calcium 8.6 Liver Function 03/16/22 Range/Units 07:21 Total Bilirubin 0.3 (0.2-1.0) mg/dl AST 35 (13-39) U/L ALT 32 (7-52) U/L Alkaline Phosphatase 98 (34-104) U/L Albumin 2.9 L (3.4-5.0) gm/dl
[2022-03-16] MEDS: TAMSULOSIN HCL 0.4 MG CAP PO SCH (21:14)
[2022-03-17] MEDS: HEPARIN SOD 5,000 UNIT/0.5 ML VIAL SQ SCH ×3 (05:02→20:28)
[2022-03-17] MEDS: ASPIRIN 81 MG ECTAB PO SCH (07:22)
[2022-03-17] MEDS: DIGOXIN 0.25 MG TAB PO SCH (07:23)
[2022-03-17] MEDS: PANTOprazole 40 MG in SYRINGE 0 ML IV SCH ×2 (07:24→20:37)
[2022-03-17] MEDS: DOCUSATE SODIUM 100 MG CAP PO SCH ×2 (07:24→21:13)
[2022-03-17] MEDS: LISINOPRIL/HCTZ 20/12.5MG 1 TAB TAB PO SCH (07:24)
[2022-03-17] MEDS: INSULIN ASPART PER UNIT SC SCH ×4 (08:09→20:38)
[2022-03-17 08:21] LABS: BUN Creatinine Ratio 16.7 (10-20); Calcium 8.6 mg/dl (8.5-10.1); Creatinine Clr Calc Pharmacy 130.9 ml/min; Est GFR (African American) 116.6 ml/min; Est GFR (Non-African American) 100.6 ml/min; Potassium 3.7 mmol/L (3.5-5.1)
[2022-03-17] MEDS: cefTRIAXone SODIUM 2,000 MG in DEXTROSE 5% 50 ML IV SCH (11:24)
--- NOTE | 2022-03-17 17:44 | Hospitalist Progress Note ---
Date of Service March 17, 2022 Assessment & Plan (1) Sepsis: (2) Diabetes: (3) Paroxysmal supraventricular tachycardia: (4) HTN (hypertension): (5) Duodenal ulcer: Plan Patient is a 77 yr male with H/O Hypertension, PSVT, type 2 diabetes, recent history of hip fracture status postrepair in 01/31, recent history of acalculous cholecystitis status postcholecystectomy complicated by hemorrhagic shock in early February in [place] presents to the ED with abdominal pain, fever and lethargy. Sepsis POA / Kleibsella pneumonia Complicated UTI Prostatomegaly with evidence of chronic Bladder outlet obstruction Metabolic encephalopathy-POA --CT ABD:The bladder wall is markedly thickened with surrounding inflammation and intraluminal gas. The appearance is typical for cystitis. Correlate with clinical findings and urinalysis. -- Blood cultures negative to date Urine culture Klebsiella pneumonia Continue ceftriaxone Plan to discharge to SNF tomorrow if stable H/O acalculus cholecystitis S/P cholecystectomy --CT ABD:There is postsurgical change from interval cholecystectomy. A thin pocket of indeterminant fluid is seen in the gallbladder fossa as above. This could represent expected postoperative change/resolving hematoma. Bile leak or infection cannot be excluded by CT. Clinical correlation will be essential. If there is clinical concern for bile leak a nuclear hepatobiliary scan should be considered. --HID Scan:There is a 2.0 cm complex enhancing nodule arising from the upper pole of the right kidney. Renal cell carcinoma is the diagnosis of exclusion Follow-up as outpatient Right renal mass CT ABD:There is a 2.0 cm complex enhancing nodule arising from the upper pole of the right kidney. Renal cell carcinoma is the diagnosis of exclusion Appreciate urology input Needs follow-up with urology upon discharge Chronic bladder outlet obstruction with prostatomegaly Urinary retention Patient refuses Meza catheter placement Bladder scan as needed Urology on board Currently on Flomax Straight cath as needed No significant urinary retention on bladder scan today Chronic conditions: Duodenal ulcer seen on endoscopy in Februarycontinue on Protonix HypertensionOn lisinopril, hydrochlorothiazide PSVTdigoxin Type 2 diabetes melitissliding scale insulin DVT Px: Heparin SQ Code Status Full code Admission and Anticipated Discharge Date Admission Date: March 12, 2022 Subjective Patient is seen and examined at bedside No new complaints States feeling well today Denies any chest pain, dyspnea, dizziness, nausea, abdominal pain Bladder scan--No significant retention today Review of Systems Review of Systems: All systems reviewed & are unremarkable except as noted in Subjective Physical Exam Physical Exam: Physical Exam: Vitals signs as noted above General Appearance:Thin, frail, chronic ill, no distress Head: normocephalic, Atraumatic Eyes: normal inspection, EOMI Neck: supple, Trachea midline Respiratory/Chest: Normal breath sounds, CTA, No accessory muscle use Cardiovascular: S1, S2, + murmur Abdomen/GI:Soft, Non tender, +Surgical scars, Bowel sounds present Extremities/Musculoskeletal:normal inspection, Trace edema Neurologic/Psych:AAOX3, grossly no focal neurological deficits Skin: normal color, warm Results & Data Results & Data ([facility]) Vital Signs (Past 12 Hours) Vital Signs Temp Pulse Pulse Resp BP Pulse Ox O2 Del Method 03/17/22 15:45 37.1 C 86 20 133/72 96 Room Air 03/17/22 11:00 36.5 C 87 20 136/76 95 Room Air 03/17/22 07:23 84 Laboratory Results [facility] 03/17/22 07:31 Sodium 137 Potassium 3.7 Chloride 103 Carbon Dioxide 28 BUN 9 Creatinine 0.54 L Glucose 163 H Calcium 8.6
[2022-03-17] MEDS ORDERED: MICONAZOLE NITRATE POWDER 43 GM EXT PRN (19:45)
[2022-03-17] MEDS: TAMSULOSIN HCL 0.4 MG CAP PO SCH (20:38)
[2022-03-17] MEDS: ACETAMINOPHEN 325 MG TAB PO PRN (21:13)
[2022-03-18] MEDS ORDERED: POTASSIUM CHLORIDE CRTAB 20 MEQ TABCR PO STA (00:28)
[2022-03-18] MEDS: MAGNESIUM SULFATE / D5W 1 GM/100 ML BAG IV SCH ×2 (02:46→04:36)
[2022-03-18] MEDS: HEPARIN SOD 5,000 UNIT/0.5 ML VIAL SQ SCH (04:56)
[2022-03-18 07:09] LABS: BUN Creatinine Ratio 16.4 (10-20); Calcium 8.5 mg/dl (8.5-10.1); Creatinine Clr Calc Pharmacy 115.9 ml/min; Est GFR (African American) 110.9 ml/min; Est GFR (Non-African American) 95.7 ml/min; Potassium 3.8 mmol/L (3.5-5.1)
[2022-03-18] MEDS ORDERED: POLYETHYLENE (MIRALAX) 17 GM PACK PO PRN (09:52)
[2022-03-18] MEDS: ASPIRIN 81 MG ECTAB PO SCH (10:10)
[2022-03-18] MEDS: DOCUSATE SODIUM 100 MG CAP PO SCH (10:11)
[2022-03-18] MEDS: DIGOXIN 0.25 MG TAB PO SCH (10:11)
[2022-03-18] MEDS: PANTOprazole 40 MG in SYRINGE 0 ML IV SCH (10:11)
[2022-03-18] MEDS: LISINOPRIL/HCTZ 20/12.5MG 1 TAB TAB PO SCH (10:11)
[2022-03-18] MEDS: INSULIN ASPART PER UNIT SC SCH ×2 (10:15→12:49)
[2022-03-18] MEDS: cefTRIAXone SODIUM 2,000 MG in DEXTROSE 5% 50 ML IV SCH (10:18)
--- NOTE | 2022-03-18 12:01 | Hospitalist Progress Note ---
Date of Service March 18, 2022 Assessment & Plan (1) Sepsis: (2) Diabetes: (3) Paroxysmal supraventricular tachycardia: (4) HTN (hypertension): (5) Duodenal ulcer: Plan Patient is a 77 yr male with H/O Hypertension, PSVT, type 2 diabetes, recent history of hip fracture status postrepair in 01/31, recent history of acalculous cholecystitis status postcholecystectomy complicated by hemorrhagic shock in early February in [place] presents to the ED with abdominal pain, fever and lethargy. Sepsis POA 2/2 Klebsiella pneumonia Complicated UTI Prostatomegaly with evidence of chronic Bladder outlet obstruction Metabolic encephalopathy-POA --CT ABD:The bladder wall is markedly thickened with surrounding inflammation and intraluminal gas. The appearance is typical for cystitis. Correlate with clinical findings and urinalysis. -- Blood cultures negative to date Urine culture Klebsiella pneumonia Continue ceftriaxone>> transition to cefdinir to complete the course. Plan to discharge to SNF today H/O acalculus cholecystitis S/P cholecystectomy --CT ABD:There is postsurgical change from interval cholecystectomy. A thin pocket of indeterminant fluid is seen in the gallbladder fossa as above. This could represent expected postoperative change/resolving hematoma. Bile leak or infection cannot be excluded by CT. Clinical correlation will be essential. If there is clinical concern for bile leak a nuclear hepatobiliary scan should be considered. --HIDA Scan:There is a 2.0 cm complex enhancing nodule arising from the upper pole of the right kidney. Renal cell carcinoma is the diagnosis of exclusion Advised to follow-up with surgery upon discharge Right renal mass CT ABD:There is a 2.0 cm complex enhancing nodule arising from the upper pole of the right kidney. 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 --Type 2 diabetes melitissliding scale insulin DVT Px: Heparin SQ Code Status Full code Disposition SNF Admission and Anticipated Discharge Date Admission Date: March 12, 2022 Subjective Patient is seen and examined at bedside Patient had 17 beats of NSVT overnight asymptomatic No other episodes on telemetry Denies any chest pain, palpitations, dyspnea, dizziness, nausea, abdominal pain No urinary retention on bladder scan Plan to discharge to rehab facility today Review of Systems Review of Systems: All systems reviewed & are unremarkable except as noted in Subjective Physical Exam Physical Exam: Physical Exam: Vitals signs as noted above General Appearance:Thin, frail, chronic ill, no distress Head: normocephalic, Atraumatic Eyes: normal inspection, EOMI Neck: supple, Trachea midline Respiratory/Chest: Normal breath sounds, CTA, No accessory muscle use Cardiovascular: S1, S2, + murmur Abdomen/GI:Soft, Non tender, +Surgical scars, Bowel sounds present Extremities/Musculoskeletal:normal inspection, Trace edema Neurologic/Psych:AAOX3, grossly no focal neurological deficits Skin: normal color, warm Results & Data Results & Data ([facility]) Vital Signs (Past 12 Hours) Vital Signs Temp Pulse Pulse Resp BP Pulse Ox O2 Del Method 03/18/22 10:56 36.4 C 82 18 118/67 95 Room Air 03/18/22 10:11 74 03/18/22 06:22 37.0 C 76 18 123/70 96 Room Air 03/18/22 00:41 36.8 C 82 18 122/67 96 Room Air Laboratory Results BMP 03/18/22 06:22 Sodium 137 Potassium 3.8 Chloride 103 Carbon Dioxide 28 BUN 10 Creatinine 0.61 Glucose 183 H Calcium 8.5
--- NOTE | 2022-03-18 12:15 | Discharge Summary ---
Date of Service March 18, 2022 Admission HPI Per Admitting Provider 77-year-old male, with history of hypertension, paroxysmal supraventricular tachycardia, type 2 diabetes mellitus, recent history of hip fracture status post surgical repair in January 2022, recent history of acalculous cholecystitis, status post cholecystectomy, with complications. Patient was transferred to [place] for cholecystectomy, after surgery he had hemorrhagic shock required multiple blood transfusions and was admitted to ICU. He also underwent endoscopy and was found to have duodenal ulcer and gastritis. Patient now presents from [facility], reportedly he was doing fairly well after surgery, however now presents with some abdominal pain, confusion and fever. No fever documented in the ER. CT abdomen pelvis obtained in the ED, with concern of cystitis, and biliary leak. Procalcitonin mildly elevated at 0.79, and white blood cell count 15.5 K. UA c/w UTI. Blood cultx - obtained and pending. General surgery was consulted by ED provider, and it was recommended to obtain HIDA scan. IV Zosyn was started. Patient is currently laying in bed, in no acute distress. He is able to tell me his name, denies any complaints besides hip pain with movement. Denies abdominal pain. Denies any fevers chills chest pain or shortness of breath. Denies dysuria or any difficulty with urination. Patient however does not seem to be a good historian, and answers questions very slowly. Admission Exam Per Admitting Provider Physical Exam Constitutional: WD/WN, vitals as above Eyes: PERRL, conjunctivae normal, anicteric sclerae ENMT: external ear and nose normal, oropharynx normal Neck: normal visual inspection Respiratory: normal respiratory effort, lungs clear to auscultation Cardiovascular: Rate/Rhythm: regular rate (+ murmur) Chest (Breasts): Chest: normal inspection of chest Gastrointestinal (Abdomen): normal bowel sounds, soft, nontender, no h epatosplenomegaly (incisions from cholecystectomy noted, healing well) Musculoskeletal: no cyanosis or clubbing, extremities motor strength 5/5 (pain w/ movement s/p hip surg.) Skin: no rashes, warm and dry Neurologic: PERRL, EOMI, accommodation nl, no face palsy, no dysarthria Psychiatric: A+Ox3, euthymic affect Genitourinary: no CVA tenderness Principal Diagnosis Sepsis Complicated UTI chronic Bladder outlet obstruction H/O Acalculous cholecystitis S/P cholecystectomy Right renal mass Paroxysmal supraventricular tachycardia Discharge Data Allergies Allergy/AdvReac Type Severity Reaction Status Date / Time oxycodone AdvReac lethargy Verified 02/05/22 21:42 Consultations 03/12/22 16:35 Consult General Surgery Stat 03/12/22 16:40 ED Decision to Admit Stat 03/15/22 17:24 Consult Urology Routine Procedures Performed Laboratory Results WBC 6.67 K/ul (4.8-10.8) 03/16/22 07:21 RBC 3.59 M/uL (4.63-6.08) L 03/16/22 07:21 Hgb 10.4 g/dl (14.0-18.0) L 03/16/22 07:21 Hct 31.5 % (40.1-51.0) L 03/16/22 07:21 MCV 87.7 fL (80.0-100.0) 03/16/22 07:21 MCH 29.0 pg (25.0-34.0) 03/16/22 07: MCHC 33.0 g/dL (32.0-36.0) 03/16/22 07:21 RDW Std Deviation 48.0 fL (36.4-46.3) H 03/16/22 07:21 RDW Coeff of Aleyda 15.0 % (11.5-14.5) H 03/16/22 07:21 Plt Count 350 K/uL (130-400) 03/16/22 07:21 MPV 8.9 fL (9.4-12.4) L 03/16/22 07:21 Immature Gran % (Auto) 0.7 % 03/16/22 07:21 Neut % (Auto) 62.5 % 03/16/22 07:21 Lymph % (Auto) 26.7 % 03/16/22 07:21 [place] % (Auto) 7.9 % 03/16/22 07: Eos % (Auto) 1.8 % 03/16/22 07:21 Baso % (Auto) 0.4 % 03/16/22 07:21 Neut # (Auto) 4.16 K/uL (1.4-6.5) 03/16/22 07: Lymph # (Auto) 1.78 K/uL (1.2-3.4) 03/16/22 07:21 [place] # (Auto) 0.53 K/uL (0.24-0.82) 03/16/22 07:21 Eos # (Auto) 0.12 K/uL (0-0.50) 03/16/22 07:21 Baso # (Auto) 0.03 K/uL (0-0.2) 03/16/22 07:21 Immature Gran # (Auto) 0.05 K/uL (0.00-0.02) H 03/16/22 07:21 PT 11.9 Seconds (9.0-12.0) 03/12/22 14:05 INR 1.1 (0.9-1.1) 03/12/22 14:05 APTT 29.6 Seconds (21.0-31.0) 03/12/22 14:05 PTT Ratio 1.1 03/12/22 14:05 Sodium 137 mmol/L (136-145) 03/18/22 06:22 Potassium 3.8 mmol/L (3.5-5.1) 03/18/22 06:22 Chloride 103 mmol/L (98-107) 03/18/22 06:22 Carbon Dioxide 28 mmol/L (21-32) 03/18/22 06:22 Anion Gap 6 (3-11) 03/18/22 06:22 BUN 10 mg/dl (6-23) 03/18/22 06:22 Creatinine 0.61 mg/dl (0.6-1.4) 03/18/22 06:22 Est Cr Clr Drug Dosing 115.9 ml/min 03/18/22 06:22 Est GFR ( Amer) 110.9 ml/min 03/18/22 06:22 Est GFR (Non-Af Amer) 95.7 ml/min 03/18/22 06:22 BUN/Creatinine Ratio 16.4 (10-20) 03/18/22 06:22 Glucose 183 mg/dl (70-99(Fasting)) H 03/18/22 06:22 POC Glucose 184 mg/dl (70-99) H 03/18/22 11:47 Estimat Average Glucose 94 mg/dl 03/13/22 05:54 Hemoglobin A1c 4.9 % (4.5-5.6) 10/02/22 05:54 Lactate 1.5 mmol/L (0.4-2.0) 03/12/22 16:49 Calcium 8.5 mg/dl (8.5-10.1) 03/18/22 06:22 Phosphorus 2.8 mg/dl (2.5-4.9) 03/13/22 05:54 Magnesium 1.7 mg/dl (1.7-2.4) 03/18/22 00:44 Total Bilirubin 0.3 mg/dl (0.2-1.0) 03/16/22 07:21 Direct Bilirubin 0.2 mg/dl (0-0.2) 03/12/22 14:05 AST 35 U/L (13-39) 03/16/22 07:21 ALT 32 U/L (7-52) 03/16/22 07:21 Alkaline Phosphatase 98 U/L (34-104) 03/16/22 07:21 Troponin I High Sens 23.5 pg/ml (0-20) H D 03/12/22 14:05 Total Protein 6.1 gm/dl (6.0-8.3) 03/16/22 07:21 Albumin 2.9 gm/dl (3.4-5.0) L 03/16/22 07:21 Globulin 3.2 gm/dl (2.5-4.0) 03/16/22 07:21 Albumin/Globulin Ratio 0.9 (0.9-2) 03/16/22 07:21 Procalcitonin 0.79 ng/ml (0-0.5) H 03/12/22 14:05 Urine Color Yellow 03/12/22 16:49 Urine Appearance Clear (Clear) 03/12/22 16:49 Urine pH 5.5 (4.5-7.5) 03/12/22 16:49 Ur Specific [place] > 1.045 (1.000-1.030) H 03/12/22 16:49 Urine Protein Trace (Negative) H 03/12/22 16:49 Urine Glucose (UA) 3+ (Negative) H 03/12/22 16:49 Urine Ketones Negative (Negative) 03/12/22 16:49 Urine Blood Trace (Negative) H 03/12/22 16:49 Urine Nitrite Positive (Negative) A 03/12/22 16:49 Urine Bilirubin Negative (Negative) 03/12/22 16:49 Urine Urobilinogen Negative (Negative) 03/12/22 16:49 Ur Leukocyte Esterase 1+ (Negative) H 03/12/22 16:49 Urine WBC (Auto) >30 /hpf (0-5) H 03/12/22 16:49 Urine RBC (Auto) 5-10 /hpf (0-4) H 03/12/22 16:49 U Hyaline Cast (Auto) 1-5 /lpf (0-5) 03/12/22 16:49 U Epithel Cells (Auto) 0-5 /lpf (0-5) 03/12/22 16:49 Urine Bacteria (Auto) 4+ (Negative) H 03/12/22 16:49 Digoxin 0.7 ng/ml (0.8-2.0) L 03/18/22 06:22 SARS-CoV-2 (PCR) NEGATIVE (Negative) 03/12/22 14:08 Influenza Type A (PCR) Negative (Neg) 03/12/22 14:08 Influenza Type B (PCR) Negative (Neg) 03/12/22 14:08 RSV (RT-PCR) Negative (Neg) 03/12/22 14:08 SARS-CoV-2, RNA, NAAT NEGATIVE (NEGATIVE) 03/18/22 11:00 Impressions Abdomen/Pelvis CT 03/12/22 13:34 CT SCAN OF THE ABDOMEN AND PELVIS WITH IV CONTRAST CLINICAL HISTORY: Postoperative fever. Recent cholecystectomy. COMPARISON STUDY: Abdominal CT dated 02/18/2022. TECHNIQUE: Following the IV administration of 94 cc of Optiray 350, CT scan of the abdomen and pelvis is performed from the lung bases to the proximal femora. Images are reviewed in the axial, sagittal, and coronal planes. IV contrast was administered without complication. A dose lowering technique was utilized adhering to the principles of ALARA. The examination is degraded by motion artifact, as well as by streak artifact from the arms which could not be elevated above the abdomen. CT DOSE: 974.25 mGy.cm FINDINGS: Lung bases: The heart is normal in size and without pericardial effusion. The coronary arteries are densely calcified. There is elevation of the left hemidiaphragm with bibasilar scarring/atelectasis. A calcified granuloma seen at the left lung base. Liver: The contrast-enhanced liver is normal in size, contour, and attenuation. There is no intrahepatic biliary ductal dilatation. The hepatic veins and portal veins are patent. Gallbladder: The gallbladder is surgically absent noting clips in the gallbladder fossa. There is a pocket of fluid in the gallbladder fossa measuring approximately 8 x 1.5 cm seen on image #172. No gas is seen within this fluid. Spleen: Normal in size and attenuation. There are calcified splenic granulomas. Pancreas: Unremarkable. Adrenal glands: A 1.9 cm indeterminate right adrenal nodule is unchanged. The left adrenal gland is normal in appearance. Kidneys: The contrast enhanced kidneys are normal in size and without hydronephrosis. The kidneys enhance symmetrically. A 2.0 cm heterogeneously enhancing lesion is again seen arising from the upper pole of the right kidney on image #216. The 7.3 cm cyst arises from the right lower pole. Abdominal vasculature: There is advanced atherosclerotic calcification and mild ectasia of the abdominal aorta. Bowel: Mild to moderate fecal retention is seen throughout the colon. No bowel obstruction is identified. The appendix is well-visualized and normal. Peritoneum: There is no intraperitoneal free air or abdominal ascites. Lymphadenopathy: None. Pelvic viscera: Evaluation of the pelvis is degraded by streak artifact from a right hip arthroplasty. The prostate gland is enlarged and heterogeneous noting median lobe hypertrophy. The bladder is largely decompressed. The bladder wall is markedly thickened with surrounding inflammation. Gas is present in the bladder lumen. Skeletal structures: The skeletal structures are osteopenic. There is mild to moderate lumbosacral spondylosis. Mild chronic compression deformities are noted in the lower thoracic spine. No lytic or blastic lesions are seen. A right hip arthroplasty is in place. There is infiltration and foci of soft tissue gas surrounding the right hip. A fluid collection overlying the greater trochanter on image #[id number] intense foci of gas and measures approximately 6 x 4 x 4.5 cm. IMPRESSION: 1. Streak and motion compromised examination. 2. There is postsurgical change from interval cholecystectomy. A thin pocket of indeterminant fluid is seen in the gallbladder fossa as above. This could represent expected postoperative change/resolving hematoma. Bile leak or infection cannot be excluded by CT. Clinical correlation will be essential. If there is clinical concern for bile leak a nuclear hepatobiliary scan should be considered. 3. The bladder wall is markedly thickened with surrounding inflammation and intraluminal gas. The appearance is typical for cystitis. Correlate with clinical findings and urinalysis. 4. Soft tissue infiltration and foci of subcutaneous gas are seen overlying the right hip arthroplasty. There is a small fluid collection overlying the greater trochanter of the proximal femur as above. This could represent expected postoperative changes given recent surgery. The sterility of these findings cannot be assessed by imaging and clinical correlation will be essential. 5. There is a 2.0 cm complex enhancing nodule arising from the upper pole of the right kidney. Renal cell carcinoma is the diagnosis of exclusion. Nonemergent follow up with urology is recommended. 6. Additional findings as above. ACT 112: Negative or not required by law. Electronically signed by: Vishal Hardin M.D. 03/12/2022 4:08 PM Chest X-Ray 03/12/22 13:34 SINGLE VIEW CHEST CLINICAL HISTORY: Sepsis. FINDINGS: 2 AP, portable, upright chest radiographs are compared to chest x-ray and chest CT dated 02/18/2022. The examination is degraded by portable technique and patient rotation. The heart is top normal in size noting atherosclerotic calcification of the thoracic aorta. There is chronic elevation of the left hemidiaphragm with bibasilar scarring/atelectasis. Scattered calcified granul omas are observed. No airspace consolidation or large pleural effusion is identified. No pneumothorax is seen. The skeletal structures are osteopenic. The bony thorax is grossly intact. IMPRESSION: No acute cardiopulmonary abnormality. ACT 112: Negative or not required by law. Electronically signed by: Vishal Hardin M.D. 03/12/2022 1:[address] 03/12/22 13:34 CT SCAN OF THE BRAIN WITHOUT IV CONTRAST CLINICAL HISTORY: Change in mental status. COMPARISON STUDY: CT of the brain dated 08/07/2019. TECHNIQUE: Unenhanced axial CT scan of the brain is performed from the vertex to the skull base. A dose lowering technique was utilized adhering to the principles of ALARA. CT DOSE: 994.59 mGy.cm FINDINGS: Brain parenchyma: There is age-related involutional change noting moderate patchy subcortical and periventricular microangiopathic disease. There is no hemorrhage, mass effect, or evidence of acute territorial ischemia by CT criteria. Cornell-white matter differentiation is preserved. No extra-axial fluid collection is seen. Ventricles, sulci, cisterns: Prominent secondary to involutional change. Intracranial vasculature: There is atherosclerotic calcification of the cavernous carotid and vertebral arteries. Calvarium: Unremarkable. Sinuses and mastoids: The paranasal sinuses are clear. The mastoid air cells are well pneumatized. Orbits: The bony orbits are grossly intact. There are bilateral ocular lens implants. IMPRESSION: There is no hemorrhage, mass effect, or evidence of acute territorial ischemia by CT criteria. ACT 112: Negative or not required by law. Electronically signed by: Vishal Hardin M.D. 03/12/2022 3:24 PM Renal Ultrasound 03/13/22 12:02 US renal/blad retro comp HISTORY: 77 years-old Male UTI, evaluation of Mass in right upper pole acute urinary tract infection COMPARISON: CT abdomen and pelvis 03/12/2022 TECHNIQUE: Multiple real-time sonographic images of the kidneys and urinary bladder were obtained assessing grayscale appearance and color flow FINDINGS: Limited exam secondary to patient inability to breath-hold and also overlying galeana rgical bandages. The right kidney measures 12.2 cm in length. There is a hypoechoic lesion within the superior pole right kidney measuring 2.1 x 1.9 x 2.1 cm demonstrating color flow. Cyst of the right kidney measures 6.4 x 5.4 x 6.2 cm. No right-sided renal calculi or hydronephrosis. The left kidney measures 12.8 cm in length and is unremarkable without renal calculi or hydronephrosis. Prostamegaly. Urinary bladder wall thickening and trabeculation is noted. Layering debris within the urinary bladder with bilateral ureteral jets. IMPRESSION: 1. 2.1 cm mass of the superior pole right kidney. Renal cell carcinoma is the diagnosis of exclusion. 2. No renal calculi or hydronephrosis. 3. Prostamegaly with evidence of chronic bladder outlet obstruction. ACT 112: Negative or not required by law. The above report was generated using voice recognition software. It may contain grammatical, syntax or spelling errors. Electronically signed by: Eamon Samson M.D. 03/13/2022 2:53 PM Hepatobiliary Scan Nuclear Medicine 03/14/22 08:00 NUCLEAR HEPATOBILIARY SCAN CLINICAL HISTORY: Fever and abdominal pain status post cholecystectomy. COMPARISON STUDY: Abdominal CT dated 03/12/2022. TECHNIQUE: Dynamic images of the liver and anterior abdomen were obtained every 5 minutes for a total of 35 minutes following the IV administration of 5.3 mCi of technetium 99m Mebrofenin. An additional delayed images were performed at 50 minutes. FINDINGS: The hepatobiliary scan shows prompt and homogeneous hepatic uptake. There is visualized activity within the intra and extrahepatic biliary tree at 10 minutes. There is normal biliary to bowel transit, with small bowel visualized by 15 minutes. There is no abnormal pooling of tracer within the gallbladder fossa to indicate bile leak. IMPRESSION: There is no scintigraphic evidence of bile leak. ACT 112: Negative or not required by law. Electronically signed by: Vishal Hardin M.D. 03/14/2022 8:57 AM Venous Doppler Study 03/14/22 08:25 ULTRASOUND BILATERAL LOWER EXTREMITY VENOUS CLINICAL HISTORY: Fever. Recent surgery. COMPARISON STUDY: Bilateral lower extremity venous ultrasound dated 02/07/2022. TECHNIQUE: Real-time, grayscale, and color Doppler sonography of the deep veins of the right and left lower extremity was performed from the inguinal crease to the calf. Compression and augmentation were utilized. FINDINGS: There is no sonographic evidence of deep venous thrombosis identified in the right or left lower extremity. The common femoral, superficial femoral, and popliteal veins are patent and normally compressible bilaterally. The greater saphenous vein and the profunda femoris vein at the junction with the common femoral vein are clear in both legs. The visualized calf veins are patent bilaterally. IMPRESSION: There is no sonographic evidence of deep venous thrombosis identified in the right or left lower extremity. ACT 112: Negative or not required by law. Electronically signed by: Vishal Hardin M.D. 03/14/2022 9:29 AM Ordered Studies 03/12/22 13:34 CT abd pelvis IV con only Stat CT head/brain wo con Stat 03/13/22 12:02 US Renal Bladder [US renal/blad retro comp] Routine 03/14/22 08:25 US venous doppler LE Routine Hospital Course (1) Sepsis: (2) Diabetes: (3) Paroxysmal supraventricular tachycardia: (4) HTN (hypertension): (5) Duodenal ulcer: Plan Patient is a 77 yr male with H/O Hypertension, PSVT, type 2 diabetes, recent history of hip fracture status postrepair in 01/31, recent history of acalculous cholecystitis status postcholecystectomy complicated by hemorrhagic shock in early February in [place] presents to the ED with abdominal pain, fever and lethargy. Sepsis POA 2/2 Klebsiella pneumonia Complicated UTI Prostatomegaly with evidence of chronic Bladder outlet obstruction Metabolic encephalopathy-POA --CT ABD:The bladder wall is markedly thickened with surrounding inflammation and intraluminal gas. The appearance is typical for cystitis. Correlate with clinical findings and urinalysis. -- Blood cultures negative to date Urine culture Klebsiella pneumonia Continue ceftriaxone>> transition to cefdinir to complete the course. Plan to discharge to SNF today H/O acalculus cholecystitis S/P cholecystectomy --CT ABD:There is postsurgical change from interval cholecystectomy. A thin pocket of indeterminant fluid is seen in the gallbladder fossa as above. This could represent expected postoperative change/resolving hematoma. Bile leak or infection cannot be excluded by CT. Clinical correlation will be essential. If there is clinical concern for bile leak a nuclear hepatobiliary scan should be considered. --HIDA Scan:There is a 2.0 cm complex enhancing nodule arising from the upper pole of the right kidney. Renal cell carcinoma is the diagnosis of exclusion Advised to follow-up with surgery upon discharge Right renal mass CT ABD:There is a 2.0 cm complex enhancing nodule arising from the upper pole of the right kidney. 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 --Type 2 diabetes melitissliding scale insulin DVT Px: Heparin SQ Code Status Full code Disposition SNF Total Time Total Time Spent Total Time Spent (In Minutes): 45 minutes Discharge Plan Discharge Items Patient Disposition: Transfer [facility] Fac Reason For Visit: CONFUSION Discharge Diagnosis: Sepsis Complicated UTI chronic Bladder outlet obstruction H/O Acalculous cholecystitis S/P cholecystectomy Right renal mass Paroxysmal supraventricular tachycardia Activity: Per Instructions section Exercise/Sports: Gradually increase as tolerated Non-emergency contact: Primary Care Provider, Surgeon, City Tax Auditor and Urologist Call non-emergency contact if: you have any medication questions, your symptoms worsen, your pain is concerning for you, you have a fever, your wound has increased redness, your wound has increased drainage and your wound pain has increased Follow-up/Referrals: Jesse Real, [Primary Care Provider] - Diet: Carb Consistent or DM2 and Heart Healthy Addtl Attending Provider Instructions: Follow-up with your primary care physician in 1 week upon discharge from rehab facility Follow-up with your surgeon as recommended by your Surgeon Follow-up with your urologist for further management of right kidney mass/urinary retention in 2-3 weeks Consider following with your bevel face stoner and polisher for management of management of arrhythmias. --- Complete the antibiotic course cefdinir 300 mg twice a day for 3 more days for urinary tract infection. Seek immediate medical attention if your symptoms reoccur or worsen Please take all medications as instructed on discharge list below. Please call if you have any questions or problems. You can reach a [facility] hospitalist on duty at [facility] 24 hours a day by calling [phone] Pending Studies at Discharge: No Stand-Alone Forms: My [facility] Skilled Items Patient informed of condition?: No DNR: No Discharge Level of Care: Skilled Communicable Disease: No Discharge Prognosis: Stable Lines: None Urinary Catheter: No Medications and DC Order Prescriptions: New cefdinir 300 mg Capsule 300 mg PO BID Qty: 6 0RF Rx Instructions: Start taking from 03/19/22 tamsulosin 0.4 mg Capsule 0.4 mg PO HS Qty: 30 1RF Continued aspirin 81 mg tablet,delayed release (DR/EC) 81 mg PO DAILY potassium chloride 20 mEq tablet,ER particles/crystals 20 meq PO DAILY acetaminophen 325 mg tablet 650 mg PO TID glipizide 10 mg tablet extended release 24hr 10 mg PO AMPM Rx Instructions: take with morning and evening meal alpha lipoic acid 600 mg Tablet 1,200 mg PO DAILY ferrous gluconate 324 mg (38 mg iron) Tablet 324 mg PO QAM Qty: 30 0RF sennosides [Senokot] 8.6 mg Tablet 17.2 mg PO HS Qty: 30 0RF multivitamin Tablet 1 tab PO DAILY Qty: 30 0RF atorvastatin 20 mg tablet 20 mg PO DAILY Qty: 30 0RF digoxin 250 mcg (0.25 mg) tablet 250 mcg PO DAILY Qty: 30 0RF metformin 1,000 mg tablet 1,000 mg PO BID Qty: 60 0RF docusate sodium [Stool Softener] 100 mg Capsule 100 mg PO BID Qty: 60 0RF lisinopril-hydrochlorothiazide 20-25 mg tablet 1 tab PO DAILY Qty: 30 0RF omega 3-ukm-ayg-fish oil [Fish Oil] 1,000 mg (120 mg-180 mg) Capsule 2 cap PO DAILY Qty: 60 0RF Invokana 300 mg tablet 300 mg PO DAILY Qty: 30 0RF Discontinued tramadol 50 mg Tablet 25 mg PO Q6H PRN (Reason: Severe pain) Qty: 14 0RF Discharge Orders: Discharge Order (Routine); Ordered 03/18/22 Ordered By: Raymond Nieto Admission Data Admit Date/Time: 03/12/22 16:41 Attending Provider: Raymond Nieto Admit Provider: Prem Verde Primary Care Provider: Jesse Real Other Providers: Stanley Jones ; Prem Verde ; Que Parra ; Noel Walden
[2022-03-19] MEDS ORDERED: CEFDINIR 300 MG CAP PO SCH (09:00)
== END 2022-03-18 13:21 | DRG 871 ==
LOC: ED 13:27 → 2W 16:41 → SUATTDRO 16:41 → 2W 18:35

== ENCOUNTER 2022-04-17 10:57 | Inpatient (IN) ==
[2022-04-17] MEDS ORDERED: SODIUM CHLORIDE 0.9% 1000ML 1,000 ML IV ONE ×2 (11:23→14:23)
--- NOTE | 2022-04-17 11:33 | XRay Report ---
XR chest 1V portable CLINICAL HISTORY: weakness COMPARISON STUDY: Chest CT February 18, 2022. Chest radiograph March 12, 2022. FINDINGS: Lung volumes are diminished. Elevation of the hemidiaphragms is unchanged. There is no pneu mothorax or pleural effusion. No consolidation is identified. Cardiac size is normal. Mediastinal con tours are normal. There is no evidence for pulmonary edema. Calcified right upper lobe granuloma is i ncidentally noted. IMPRESSION: No acute cardiopulmonary findings. No change in appearance of the chest. ACT 112: Negative or not required by law. Electronically signed by: Julio Navas M.D. 04/17/2022 11:32 AM
[2022-04-17 11:56] LABS: Basophils # (auto) 0.03 K/uL (0-0.2); Basophils % (auto) 0.3 %; Eosinophils # (auto) 0.61 K/uL (0-0.50); Eosinophils % (auto) 5.5 %; Hematocrit (blood only) 37.7 % (40.1-51.0); Hemoglobin 12.5 g/dl (14.0-18.0); Immature Granulocytes # (auto) 0.06 K/uL (0.00-0.02); Immature Granulocytes % (auto) 0.5 %; Lymphocytes # (auto) 1.87 K/uL (1.2-3.4); Mean Corpuscular Hemoglobin 28.3 pg (25.0-34.0); Mean Corpuscular Hgb Conc 33.2 g/dL (32.0-36.0); Mean Corpuscular Volume 85.3 fL (80.0-100.0); Mean Platelet Volume 9.5 fL (9.4-12.4); Monocytes # (auto) 0.57 K/uL (0.24-0.82); Monocytes % (auto) 5.2 %; Neutrophils # (auto) 7.87 K/uL (1.4-6.5); Neutrophils % (auto) 71.5 %; Platelet Count 276 K/uL (130-400); RDW Standard Deviation 46.8 fL (36.4-46.3); Red Blood Count 4.42 M/uL (4.63-6.08); White Blood Count 11.01 K/ul (4.8-10.8)
[2022-04-17 12:17] LABS: Albumin Globulin Ratio 0.9 (0.9-2); Albumin Level 3.5 gm/dl (3.4-5.0); BUN Creatinine Ratio 27.7 (10-20); Bilirubin,Total 0.4 mg/dl (0.2-1.0); Calcium 9.4 mg/dl (8.5-10.1); Est GFR (African American) 67.4 ml/min; Est GFR (Non-African American) 58.2 ml/min; Globulin 3.8 gm/dl (2.5-4.0); Magnesium 1.7 mg/dl (1.7-2.4); Phosphorus 3.2 mg/dl (2.5-4.9); Potassium 4.4 mmol/L (3.5-5.1); Total Protein 7.3 gm/dl (6.0-8.3)
[2022-04-17 12:45] LABS: Adenovirus PCR Not Detected (NotDetected); Bordetella parapertussis PCR Not Detected (NotDetected); Bordetella pertussis PCR Not Detected (NotDetected); Chlamydia pneumoniae PCR Not Detected (NotDetected); Coronavirus 229E PCR Not Detected (NotDetected); Coronavirus CoV-2 (COVID19)PCR Not Detected (NotDetected); Coronavirus HKU1 PCR Not Detected (NotDetected); Coronavirus NL63 PCR Not Detected (NotDetected); Coronavirus OC43PCR Not Detected (NotDetected); Human Metapneumovirus PCR Not Detected (NotDetected); Influenza A PCR Not Detected (NotDetected); Influenza B PCR Not Detected (NotDetected); Mycoplasma pneumoniae PCR Not Detected (NotDetected); Parainfluenza Virus 1 PCR Not Detected (NotDetected); Parainfluenza Virus 2 PCR Not Detected (NotDetected); Parainfluenza Virus 3 PCR Not Detected (NotDetected); Parainfluenza Virus 4 PCR Not Detected (NotDetected); Respiratory Syncytial VirusPCR Not Detected (NotDetected); Rhinovirus/Enterovirus PCR Not Detected (NotDetected)
[2022-04-17 12:57] LABS: Troponin I High Sensitivity 16.1 pg/ml (0-20)
[2022-04-17] MEDS ORDERED: MAGNESIUM SULFATE / D5W 1 GM/100 ML BAG IV STA (14:22)
--- NOTE | 2022-04-17 15:09 | CT Scan Report ---
CT OF THE HEAD WITHOUT CONTRAST CLINICAL HISTORY: weakness, intermittent confusion COMPARISON STUDY: MRI of the brain June 04, [address] March 12, 2022. TECHNIQUE: Helical axial images of the head were obtained without IV contrast. Automated exposure con trol was utilized for the study. A dose lowering technique was utilized adhering to the principles o f ALARA. FINDINGS: No acute intracranial hemorrhage, midline shift or mass effect is present. Ventricular dila tation is unchanged and likely related to atrophy. White matter hypodensities are similar to prior ex am and favor small vessel disease. The basal cisterns are patent. No extra-axial collections are pres ent. There are no findings to suggest acute dural sinus thrombosis or acute territorial infarct. No s ignificant calvarial abnormalities are present. Visualized portions of the sinuses and mastoid air ce lls are clear. IMPRESSION: No acute intracranial findings. No change in appearance of the brain. ACT 112: Negative or not required by law. Electronically signed by: Julio Navas M.D. 04/17/2022 3:06 PM
--- NOTE | 2022-04-17 15:18 | CT Scan Report ---
CT ANGIOGRAPHY OF THE NECK WITH CONTRAST CLINICAL HISTORY: weakness, intermittent confusion COMPARISON STUDY: No previous studies for comparison. Technique: CT angiography of the carotid and vertebral arteries was obtained using Optiray and 3D rec onstruction on an independent workstation. NASCET criteria was utilized. Automated exposure control was utilized for the study. A dose lowering technique was utilized adhering to the principles of ALA RA. CT DOSE: 1345.63 mGy.cm Findings: There is no cervical lymphadenopathy. No acute cervical spine fracture is noted. There is m oderate stenosis at the origins of the bilateral vertebral arteries. No additional stenoses are ident ified within the vertebral arteries. There is no dissection within the major vessels of the neck. The re is moderate plaque within the proximal bilateral internal carotid arteries without significant andrea nosis. No aneurysm within the neck is noted. CTA of the head will be reported separately. IMPRESSION: 1. Moderate plaque within the proximal bilateral internal carotid arteries without significant stenos is. 2. 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 ACT 112: Negative or not required by law. Electronically signed by: Julio Navas M.D. 04/17/2022 3:16 PM
--- NOTE | 2022-04-17 15:22 | CT Scan Report ---
CTA ANGIOGRAPHY OF THE HEAD CLINICAL HISTORY: weakness, intermittent confusion COMPARISON STUDY: Head CT March 12, 2022. TECHNIQUE: Helical axial images of the head were obtained following uneventful intravenous administr ation of 97 cc of Optiray. Sagittal and coronal reconstructions were viewed as well as maximal intens ity projections on an independent 3-D workstation. Automated exposure control was utilized for the cameron knight. A dose lowering technique was utilized adhering to the principles of ALARA. FINDINGS: Please note that the head CT will be reported separately. Ventricular dilatation is unchang ed since prior head CT. This is likely due to atrophy. The basal cisterns are patent. There are no ex tra-axial collections. White matter hypodensity suggests small vessel disease. There is extensive alon cified plaque within bilateral cavernous carotids. This results in moderate stenosis of the left cave rnous carotid and mild stenosis of the right cavernous carotid. No intracranial aneurysm is identifie d. There is no central vessel occlusion. There is moderate plaque within the intracranial portions of the bilateral vertebral arteries without significant stenosis. Posterior cerebral arteries are paten t. Basilar artery is patent. IMPRESSION: 1. No central vessel occlusion. No intracranial aneurysm. 2. 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 ACT 112: Negative or not required by law. Electronically signed by: Julio Navas M.D. 04/17/2022 3:20 PM
[2022-04-17 16:22] LABS: Appearance Urine Turbid (Clear); Bacteria Urine Automated 4+ (Negative); Bilirubin Urine Negative (Negative); Blood Urine 3+ (Negative); Color Urine Dark Yellow; Epithelial Cell Urine Auto >30 /lpf (0-5); Glucose Urine UA 2+ (Negative); Ketones Urine 1+ (Negative); Leukocyte Esterase Urine 3+ (Negative); Nitrite Urine Positive (Negative); Protein Urine 2+ (Negative); RBC Urine Automated 0-4 /hpf (0-4); Specific Gravity Urine 1.036 (1.000-1.030); Urobilinogen Urine Negative (Negative); WBC Urine Automated >30 /hpf (0-5); pH Urine 5.5 (4.5-7.5)
[2022-04-17] MEDS ORDERED: cefTRIAXone SODIUM 2,000 MG/70 ML BAG IV STA (16:37)
[2022-04-17 16:45] LABS: Cast Urine Automated 0 /lpf (0-5)
--- NOTE | 2022-04-17 18:15 | Emergency Department Note ---
Impression & Plan UTI (urinary tract infection), Metabolic encephalopathy, Dehydration ED Provider Note NAME: VICTOR MANUEL HENDERSON AGE: 77 SEX: M ARRIVES VIA: Ambulance INFORMANT: Patient, Daughter ED PROVIDER(S): Elliot Rodriguez MD CHIEF COMPLAINT: Weakness, hypotension, referred. PLAN: Disposition: Admit MEDICAL DECISION MAKING: The patient is a pleasant 77-year-old gentleman with a past medical history of diabetes, hypertension, heart disease who presents to the emergency department from facility at [facility] for evaluation of malaise and hypotension they noticed this morning where his blood pressure was in the 70s. Upon EMS arrival they noted his blood pressure had improved to the 100s. The patient reports that he did feel lightheaded this morning but at this time feels his recent baseline. He has had a recent complicated medical course where he broke his hip and had subsequent fpc facility but then developed cholecystitis and also recently admitted for UTI. He denies any recent fevers, nausea, vomiting, diarrhea or urinary symptoms. On arrival the patient is fatigued appearing but no acute distress, afebrile with stable vital signs. He appears clinically dry. He is cachectic. His abdomen is benign. He has generalized weakness throughout without focal neurologic deficits. WBC 11K nonspecific. H/H increased from prior and stable. Platelets within normal limits. Chemistry without metabolic acidosis. BUN/creatinine> 20 co nsistent with patient's clinically dry appearance. Electrolytes and LFTs without significant abnormality. High-sensitivity troponin 16.1, within normal limits. Procalcitonin is not elevated. UA is consistent with infection with positive nitrites, leukoesterase, WBCs and 4+ bacteria albeit with epithelial cells. Respiratory viral panel/bio fire was negative. On reevaluation patient did feel improved following IV fluid hydration. His daughter had arrived to the bedside and expressed concerns whether or not his change in mental status over the past several weeks may have been related to a stroke. We did agree to proceed with CT of the head and CT of the head and neck which demonstrated mild carotid disease but no severe narrowing or occlusion of large vessels and no ischemia or ICH. She was concerned about his weakness in setting of UTI and we did agree to proceed with admission at this time. The patient was treated empirically with ceftriaxone which would cover a UTI per recent urine cultures. Case was discussed with Lyndsey WALDRON with [facility] hospitalist, who will evaluate the patient for admission. Triage Nursing notes reviewed and agree them. Prior medical records reviewed Vital Signs: reviewed and remarkable for no significant abnormalities Differential diagnosis: Infection, dehydration, metabolic abnormality, hypo/hyperglycemia, electrolyte disturbance, anemia, hypoxia, cardiac sources, intracerebral event, toxicologic, neurologic, as well as other pathologies. ER treatment provided: See below. Diagnostics interpreted by me: ECG: Sinus rhythm with first-degree AV block, 84 bpm, no ectopy, right bundle branch block, no overt ST elevation or depression, QTC 418, QRS 120 Cardiac Monitoring: An order for continuous cardiac monitoring was placed and demonstrated Sinus rhythm with first-degree AV block, 84 bpm, no ectopy. Laboratory studies: See below Imaging studies: See below Consultation(s): Case was discussed with Lyndsey WALDRON with Dr. Brar, [facility] hospitalist, who will evaluate the patient for admission. HPI: The patient is a pleasant 77-year-old gentleman with a past medical history of diabetes, hypertension, heart disease who presents to the emergency department from facility at [facility] for evaluation of malaise and hypotension they noticed this morning where his blood pressure was in the 70s. Upon EMS arrival they noted his blood pressure had improved to the 100s. The patient reports that he did feel lightheaded this morning but at this time feels his recent baseline. He has had a recent complicated medical course where he broke his hip and had subsequent fpc facility but then developed wesley cystitis and also recently admitted for UTI. He denies any recent fevers, nausea, vomiting, diarrhea or urinary symptoms. ROS: See above HPI for pertinent positives & negatives. A total of 10 systems reviewed and were otherwise negative. VITALS:See Below PHYSICAL EXAMINATION: GENERAL: Awake, alert, fatigued-appearing, in no distress. Cachectic HENT: Normocephalic, atraumatic. Oropharynx with dry mucous membranes and otherwise unremarkable. EYES: Normal conjunctiva. Sclera non-icteric. EOMI. No nystamgus. PEARRL. NECK: Supple. No nuchal rigidity. FROM. No JVD. RESPIRATORY: Clear to auscultation. CARDIAC: Regular rate, normal rhythm. Extremities warm and well perfused. Pulses equal. ABDOMEN: Soft, non-distended. No tenderness to palpation. No rebound or guarding. No masses. RECTAL: Deferred. MUSCULOSKELETAL: Chest examination reveals no tenderness. The back is symmetrical on inspection without obvious abnormality. There is no CVA tenderness to palpation. No joint edema. LOWER EXTREMITIES: Calves are equal size bilaterally and non-tender. No edema. No discoloration. NEURO: Generalized weakness without focal sensory or motor deficits SKIN: No rash or jaundice noted. Elliot Rodriguez MD Past Med/Surg History Medical History Closed fracture of right hip Diabetes Duodenal ulcer HTN (hypertension) Paroxysmal supraventricular tachycardia Surgical History History of total hip arthroplasty S/P cholecystectomy Family History Other Cancer Lung disease Social History Smoking Status: Former smoker Tobacco Type: Cigarettes Second Hand Exposure: No; Hx Alcohol Use: No Hx Substance Use: No Preferred Language: Turkish Communication Ability: Effective Science And Operations Officer Required: No Beliefs That Will Affect Care: None marital status: Current Living Situation: Spouse and Fdc How many Children do You have: 2 Other Information That Helps Us Care for You: No Feels Safe at Home: Yes Assistive Devices: Denture - Upper, Denture - Lower, Glasses and Walker Allergies Allergies Allergy/AdvReac Type Severity Reaction Status Date / Time oxycodone AdvReac lethargy Verified 04/17/22 12:01 Home Meds Home Medications Medication Instructions Recorded Confirmed alpha lipoic acid 600 mg tablet 1,200 mg PO DAILY 02/18/22 04/17/22 aspirin 81 mg tablet,delayed 81 mg PO DAILY 02/18/22 04/17/22 release lisinopril 10 mg tablet 10 mg PO DAILY 04/17/22 04/17/22 mirtazapine 15 mg tablet 15 mg PO HS 04/17/22 04/17/22 pantoprazole 40 mg tablet,delayed 40 mg PO DAILY 04/17/22 04/17/22 release Previous Rx's Medication Instructions Recorded atorvastatin 20 mg tablet 20 mg PO DAILY #30 tabs 02/09/22 digoxin 250 mcg (0.25 mg) tablet 250 mcg PO DAILY #30 tabs 02/09/22 docusate sodium 100 mg capsule 100 mg PO BID #60 caps 02/09/22 (Stool Softener) ferrous gluconate 324 mg (38 mg 324 mg PO QAM #30 tabs 02/09/22 iron) tablet multivitamin 1 tab PO DAILY #30 tabs 02/09/22 sennosides 8.6 mg tablet (Senokot) 17.2 mg PO HS #30 tabs 02/09/22 tamsulosin 0.4 mg capsule 0.4 mg PO HS #30 caps 03/18/22 Results & Data (ED) Vital Signs Vital Signs - 24 hr 04/17/22 11:04 04/17/22 11:08 04/17/22 11:50 Temperature 37.0 C Temperature Source Oral Pulse Rate 83 Pulse Rate [Apical] 82 Respiratory Rate 18 18 Respiratory Effort / Characteristics Non-Labored Non-Labored Spontaneous Respiratory Depth Normal Normal Respiratory Pattern Regular Blood Pressure 117/64 Blood Pressure [Right Arm] 115/60 Blood Pressure Mean 81 Blood Pressure Mean [Right Arm] 78 Pulse Oximetry 97 97 98 Oxygen Delivery Method Room Air Room Air Room Air Sepsis Recent Fever Within 48 Hours No Sepsis New/Unexplained Change in Mental Status No Sepsis Action Taken by Nursing No Action Required 04/17/22 12:31 04/17/22 14:03 04/17/22 15:16 Temperature Temperature Source Pulse Rate Pulse Rate [Apical] 79 82 77 Respiratory Rate 16 18 18 Respiratory Effort / Characteristics Non-Labored Spontaneous Non-Labored Spontaneous Respiratory Depth Normal Normal Normal Respiratory Pattern Blood Pressure Blood Pressure [Right Arm] 124/60 114/71 119/62 Blood Pressure Mean Blood Pressure Mean [Right Arm] 81 85 81 Pulse Oximetry 99 98 98 Oxygen Delivery Method Room Air Room Air Room Air Sepsis Recent Fever Within 48 Hours Sepsis New/Unexplained Change in Mental Status Sepsis Action Taken by Nursing 04/17/22 16:48 Temperature Temperature Source Pulse Rate Pulse Rate [Apical] 74 Respiratory Rate 16 Respiratory Effort / Characteristics Non-Labored Respiratory Depth Normal Respiratory Pattern Blood Pressure Blood Pressure [Right Arm] 112/63 Blood Pressure Mean Blood Pressure Mean [Right Arm] 79 Pulse Oximetry 97 Oxygen Delivery Method Room Air Sepsis Recent Fever Within 48 Hours Sepsis New/Unexplained Change in Mental Status Sepsis Action Taken by Nursing Laboratory Data Attestation: I reviewed the patient's lab results. Result diagrams: 04/17/22 11:38 11/06/22 11:38 Lab Results 04/17/22 04/17/22 04/17/22 Range/Units 11:38 11:38 11:38 WBC 11.01 H (4.8-10.8) K/ul RBC 4.42 L (4.63-6.08) M/uL Hgb 12.5 L (14.0-18.0) g/dl Hct 37.7 L (40.1-51.0) % MCV 85.3 (80.0-100.0) fL MCH 28.3 (25.0-34.0) pg MCHC 33.2 (32.0-36.0) g/dL RDW Std Deviation 46.8 H (36.4-46.3) fL RDW Coeff of Aleyda 15.0 H (11.5-14.5) % Plt Count 276 (130-400) K/uL MPV 9.5 (9.4-12.4) fL Immature Gran % (Auto) 0.5 % Neut % (Auto) 71.5 % Lymph % (Auto) 17.0 % [place] % (Auto) 5.2 % Eos % (Auto) 5.5 % Baso % (Auto) 0.3 % Neut # (Auto) 7.87 H (1.4-6.5) K/uL Lymph # (Auto) 1.87 (1.2-3.4) K/uL [place] # (Auto) 0.57 (0.24-0.82) K/uL Eos # (Auto) 0.61 H (0-0.50) K/uL Baso # (Auto) 0.03 (0-0.2) K/uL Immature Gran # (Auto) 0.06 H (0.00-0.02) K/uL Sodium 135 L (136-145) mmol/L Potassium 4.4 (3.5-5.1) mmol/L Chloride 100 (98-107) mmol/L Carbon Dioxide 28 (21-32) mmol/L Anion Gap 7 (3-11) BUN 33 H (6-23) mg/dl Creatinine 1.19 (0.6-1.4) mg/dl Est Cr Clr Drug Dosing 45.0 ml/min Est GFR ( Amer) 67.4 ml/min Est GFR (Non-Af Amer) 58.2 ml/min BUN/Creatinine Ratio 27.7 H (10-20) Glucose 175 H (70-99(Fasting)) mg/dl Calcium 9.4 (8.5-10.1) mg/dl Phosphorus 3.2 (2.5-4.9) mg/dl Magnesium 1.7 (1.7-2.4) mg/dl Total Bilirubin 0.4 (0.2-1.0) mg/dl AST 12 L (13-39) U/L ALT 8 (7-52) U/L Alkaline Phosphatase 81 (34-104) U/L Total Creatine Kinase 33 (30-223) U/L Troponin I High Sens 16.1 D (0-20) pg/ml Total Protein 7.3 (6.0-8.3) gm/dl Albumin 3.5 (3.4-5.0) gm/dl Globulin 3.8 (2.5-4.0) gm/dl Albumin/Globulin Ratio 0.9 (0.9-2) Procalcitonin (0-0.5) ng/ml TSH 1.661 (0.300-4.500) uIu/ml Urine Color Urine Appearance (Clear) Urine pH (4.5-7.5) Ur Specific [place] (1.000-1.030) Urine Protein (Negative) Urine Glucose (UA) (Negative) Urine Ketones (Negative) Urine Blood (Negative) Urine Nitrite (Negative) Urine Bilirubin (Negative) Urine Urobilinogen (Negative) Ur Leukocyte Esterase (Negative) Urine WBC (Auto) (0-5) /hpf Urine RBC (Auto) (0-4) /hpf U Hyaline Cast (Auto) (0-5) /lpf U Epithel Cells (Auto) (0-5) /lpf Urine Bacteria (Auto) (Negative) Urine Yeast Adenovirus (PCR) (NotDetected) B. pertussis DNA (PCR) (NotDetected) B.parapertussis DNA PCR (NotDetected) C. pneumoniae DNA (PCR) (NotDetected) Coronavirus OC43 (PCR) (NotDetected) Coronavirus HKU1 (PCR) (NotDetected) Coronavirus 229E (PCR) (NotDetected) SARS-CoV-2 (PCR) (NotDetected) Coronavirus NL63 (PCR) (NotDetected) Human Metapneumovir PCR (NotDetected) Influenza Type A (PCR) (NotDetected) Influenza Type B (PCR) (NotDetected) M. pneumoniae (PCR) (NotDetected) Parainfluenza 1 (PCR) (NotDetected) Parainfluenza 2 (PCR) (NotDetected) Parainfluenza 3 (PCR) (NotDetected) Parainfluenza 4 (PCR) (NotDetected) RSV (PCR) (NotDetected) Entero/Rhino (PCR) (NotDetected) 04/17/22 04/17/22 04/17/22 Range/Units 11:38 11:38 16:00 WBC (4.8-10.8) K/ul RBC (4.63-6.08) M/uL Hgb (14.0-18.0) g/dl Hct (40.1-51.0) % MCV (80.0-100.0) fL MCH (25.0-34.0) pg MCHC (32.0-36.0) g/dL RDW Std Deviation (36.4-46.3) fL RDW Coeff of Aleyda (11.5-14.5) % Plt Count (130-400) K/uL MPV (9.4-12.4) fL Immature Gran % (Auto) % Neut % (Auto) % Lymph % (Auto) % [place] % (Auto) % Eos % (Auto) % Baso % (Auto) % Neut # (Auto) (1.4-6.5) K/uL Lymph # (Auto) (1.2-3.4) K/uL [place] # (Auto) (0.24-0.82) K/uL Eos # (Auto) (0-0.50) K/uL Baso # (Auto) (0-0.2) K/uL Immature Gran # (Auto) (0.00-0.02) K/uL Sodium (136-145) mmol/L Potassium (3.5-5.1) mmol/L Chloride (98-107) mmol/L Carbon Dioxide (21-32) mmol/L Anion Gap (3-11) BUN (6-23) mg/dl Creatinine (0.6-1.4) mg/dl Est Cr Clr Drug Dosing ml/min Est GFR ( Amer) ml/min Est GFR (Non-Af Amer) ml/min BUN/Creatinine Ratio (10-20) Glucose (70-99(Fasting)) mg/dl Calcium (8.5-10.1) mg/dl Phosphorus (2.5-4.9) mg/dl Magnesium (1.7-2.4) mg/dl Total Bilirubin (0.2-1.0) mg/dl AST (13-39) U/L ALT (7-52) U/L Alkaline Phosphatase (34-104) U/L Total Creatine Kinase (30-223) U/L Troponin I High Sens (0-20) pg/ml Total Protein (6.0-8.3) gm/dl Albumin (3.4-5.0) gm/dl Globulin (2.5-4.0) gm/dl Albumin/Globulin Ratio (0.9-2) Procalcitonin < 0.05 (0-0.5) ng/ml TSH (0.300-4.500) uIu/ml Urine Color Dark Yellow Urine Appearance Turbid A (Clear) Urine pH 5.5 (4.5-7.5) Ur Specific [place] 1.036 H (1.000-1.030) Urine Protein 2+ H (Negative) Urine Glucose (UA) 2+ H (Negative) Urine Ketones 1+ H (Negative) Urine Blood 3+ H (Negative) Urine Nitrite Positive A (Negative) Urine Bilirubin Negative (Negative) Urine Urobilinogen Negative (Negative) Ur Leukocyte Esterase 3+ H (Negative) Urine WBC (Auto) >30 H (0-5) /hpf Urine RBC (Auto) 0-4 (0-4) /hpf U Hyaline Cast (Auto) 0 (0-5) /lpf U Epithel Cells (Auto) >30 H (0-5) /lpf Urine Bacteria (Auto) 4+ H (Negative) Urine Yeast Not Reportable Adenovirus (PCR) Not Detected (NotDetected) B. pertussis DNA (PCR) Not Detected (NotDetected) B.parapertussis DNA PCR Not Detected (NotDetected) C. pneumoniae DNA (PCR) Not Detected (NotDetected) Coronavirus OC43 (PCR) Not Detected (NotDetected) Coronavirus HKU1 (PCR) Not Detected (NotDetected) Coronavirus 229E (PCR) Not Detected (NotDetected) SARS-CoV-2 (PCR) Not Detected (NotDetected) Coronavirus NL63 (PCR) Not Detected (NotDetected) Human Metapneumovir PCR Not Detected (NotDetected) Influenza Type A (PCR) Not Detected (NotDetected) Influenza Type B (PCR) Not Detected (NotDetected) M. pneumoniae (PCR) Not Detected (NotDetected) Parainfluenza 1 (PCR) Not Detected (NotDetected) Parainfluenza 2 (PCR) Not Detected (NotDetected) Parainfluenza 3 (PCR) Not Detected (NotDetected) Parainfluenza 4 (PCR) Not Detected (NotDetected) RSV (PCR) Not Detected (NotDetected) Entero/Rhino (PCR) Not Detected (NotDetected) Administered Medications Docusate Sodium (Docusate Sodium 100 Mg Cap) 100 mg PO BID RADHA Stop: 05/17/22 20:59 Last Admin: 04/17/22 21:28 Dose: 100 mg Documented By: EM Enoxaparin Sodium (Enoxaparin Inj 40 Mg/0.4 Ml Syr) 40 mg SQ Q24H RADHA Stop: 05/17/22 19:42 Last Admin: 04/17/22 21:28 Dose: 40 mg Documented By: EM Insulin Aspart (Insulin Aspart Per Unit) 0 units SC ACHS RADHA Stop: 05/17/22 20:59 Last Admin: 04/17/22 21:36 Dose: Not Given Documented By: EM Co-signed By: DAVID Sennosides (Senna 8.6 Mg Tab) 17.2 mg PO HS RADHA Stop: 05/17/22 20:59 Last Admin: 04/17/22 21:28 Dose: 17.2 mg Documented By: EM Tamsulosin HCl (Tamsulosin Hcl 0.4 Mg Cap) 0.4 mg PO HS RADHA Stop: 05/17/22 20:59 Last Admin: 04/17/22 21:28 Dose: 0.4 mg Documented By: EM Discontinued Medications Sodium Chloride (Nss 1000ml) 1,000 mls @ 999 mls/hr IV .Q1H1M ONE Stop: 04/17/22 12:23 Last Infusion: 04/17/22 12:52 Dose: 0 mls/hr Documented By: Admin: 04/17/22 11:43 Dose: 999 mls/hr Documented By: BRAYDEN Magnesium Sulfate/Dextrose (Magnesium Sulfate / D5w) 1 gm in 100 mls @ 100 mls/hr IV NOW STA Stop: 04/17/22 15:21 Last Infusion: 04/17/22 15:43 Dose: 0 mls/hr Documented By: Admin: 04/17/22 14:34 Dose: 100 mls/hr Documented By: BRAYDEN Sodium Chloride (Nss 1000ml) 1,000 mls @ 999 mls/hr IV .Q1H1M ONE Stop: 04/17/22 15:23 Last Infusion: 04/17/22 15:43 Dose: 0 mls/hr Documented By: Admin: 04/17/22 14:33 Dose: 999 mls/hr Documented By: BRAYDEN Ceftriaxone Sodium (Rocephin) 2,000 mg in 70 mls @ 140 mls/hr IV NOW STA Stop: 04/17/22 17:06 Last Infusion: 04/17/22 17:49 Dose: 0 mls/hr Documented By: Admin: 04/17/22 17:18 Dose: 140 mls/hr Documented By: BRAYDEN Imaging Data Radiologist's Impression: Chest X-Ray 04/17/22 11:22 XR chest 1V portable CLINICAL HISTORY: weakness COMPARISON STUDY: Chest CT February 18, 2022. Chest radiograph March 12, 2022. FINDINGS: Lung volumes are diminished. Elevation of the hemidiaphragms is unchanged. There is no pneumothorax or pleural effusion. No consolidation is identified. Cardiac size is normal. Mediastinal contours are normal. There is no evidence for pulmonary edema. Calcified right upper lobe granuloma is incidentally noted. IMPRESSION: No acute cardiopulmonary findings. No change in appearance of the chest. ACT 112: Negative or not required by law. Electronically signed by: Julio Navas M.D. 04/17/2022 11:[address] 04/17/22 14:21 CT OF THE HEAD WITHOUT CONTRAST CLINICAL HISTORY: weakness, intermittent confusion COMPARISON STUDY: MRI of the brain June 04, [address] March 12, 2022. TECHNIQUE: Helical axial images of the head were obtained without IV contrast. Automated exposure control was utilized for the study. A dose lowering technique was utilized adhering to the principles of ALARA. FINDINGS: No acute intracranial hemorrhage, midline shift or mass effect is present. Ventricular dilatation is unchanged and likely related to atrophy. White matter hypodensities are similar to prior exam and favor small vessel disease. The basal cisterns are patent. No extra-axial collections are present. There are no findings to suggest acute dural sinus thrombosis or acute territorial infarct. No significant calvarial abnormalities are present. Visualized portions of the sinuses and mastoid air cells are clear. IMPRESSION: No acute intracranial findings. No change in appearance of the brain. ACT 112: Negative or not required by law. Electronically signed by: Julio Navas M.D. 04/17/2022 3:06 PM Head CTA 04/17/22 14:21 CTA ANGIOGRAPHY OF THE HEAD CLINICAL HISTORY: weakness, intermittent confusion COMPARISON STUDY: Head CT March 12, 2022. TECHNIQUE: Helical axial images of the head were obtained following uneventful intravenous administration of 97 cc of Optiray. Sagittal and coronal reconstructions were viewed as well as maximal intensity projections on an independent 3-D workstation. Automated exposure control was utilized for the study. A dose lowering technique was utilized adhering to the principles of ALARA. FINDINGS: Please note that the head CT will be reported separately. Ventricular dilatation is unchanged since prior head CT. This is likely due to atrophy. The basal cisterns are patent. There are no extra-axial collections. White matter hypodensity suggests small vessel disease. There is extensive calcified plaque within bilateral cavernous carotids. This results in moderate stenosis of the left cavernous carotid and mild stenosis of the right cavernous carotid. No intracranial aneurysm is identified. There is no central vessel occlusion. There is moderate plaque within the intracranial portions of the bilateral vertebral arteries without significant stenosis. Posterior cerebral arteries are patent. Basilar artery is patent. IMPRESSION: 1. No central vessel occlusion. No intracranial aneurysm. 2. 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 ACT 112: Negative or not required by law. Electronically signed by: Julio Navas M.D. 04/17/2022 3:20 PM Neck CTA 04/17/22 14:21 CT ANGIOGRAPHY OF THE NECK WITH CONTRAST CLINICAL HISTORY: weakness, intermittent confusion COMPARISON STUDY: No previous studies for comparison. Technique: CT angiography of the carotid and vertebral arteries was obtained using Optiray and 3D reconstruction on an independent workstation. NASCET criteria was utilized. Automated exposure control was utilized for the study. A dose lowering technique was utilized adhering to the principles of ALARA. CT DOSE: 1345.63 mGy.cm Findings: There is no cervical lymphadenopathy. No acute cervical spine fracture is noted. There is moderate stenosis at the origins of the bilateral vertebral arteries. No additional stenoses are identified within the vertebral arteries. There is no dissection within the major vessels of the neck. There is moderate plaque within the proximal bilateral internal carotid arteries without significant stenosis. No aneurysm within the neck is noted. CTA of the head will be reported separately. IMPRESSION: 1. Moderate plaque within the proximal bilateral internal carotid arteries without significant stenosis. 2. Moderate short segment stenosis at the origins of bilateral vertebral art eries. ACT 112: Negative or not required by law. Electronically signed by: Julio Navas M.D. 04/17/2022 3:16 PM Discharge Plan Visit Data Chief Complaint: Lethargic ED Provider: Elliot Rodriguez Discharge Problem: UTI (urinary tract infection), Metabolic encephalopathy, Dehydration Patient Disposition: Admitted As Inpatient Discharge Instructions Interventions: ED Discharge Assessment Last Done: 04/17/22 19:04
[2022-04-17] MEDS ORDERED: GLUCOSE 40% GEL 15 GM TUBE PO PRN (20:56)
[2022-04-17] MEDS ORDERED: GLUCAGON FOR INJ 1 MG VIAL SQ PRN (20:56)
[2022-04-17] MEDS ORDERED: CARBOHYDRATES FOR HYPOGLYCEMIA PO PRN (20:56)
[2022-04-17] MEDS ORDERED: GLUCOSE 10 TAB/TUBE PO PRN (20:56)
[2022-04-17] MEDS ORDERED: DEXTROSE 50% 50 ML SYRINGE IV PRN (20:56)
--- NOTE | 2022-04-17 20:58 | History & Physical Report ---
Date of Service April 17, 2022 Assessment & Plan (1) Metabolic encephalopathy: (2) UTI (urinary tract infection): (3) Enlarged prostate: (4) Urinary retention: Plan: Admit to [facility] Patient presenting from [facility] for evaluation of worsening generalized weak ness and lethargy Head CT, Head and Neck CTAs unremarkable for acute intracranial findings Recent history includes history of right hip fracture 01/2022, history of acute acalculous cholecystitis s/p cholecystectomy with postoperative course complicated by hemorrhagic shock 02/2022, chronic bladder outlet obstruction with recurrent UTI, recently admitted to [facility] 03/12 through 03/18 for sepsis secondary to Klebsiella UTI. Urine culture from 03/31 at [facility] grew Klebsiella. Patient was treated with a course of Macrobid however noted intermediate sensitivity on culture. In the ED, UA is suggestive of UTI. Patient is afebrile without leukocytosis, does not appear septic. Review of notes from [facility] does state that patient has ongoing issues with urinary retention however adamantly refuses straight cath and Meza catheter S/p IV ceftriaxone in the ED, continue with Urology consult for chronic bladder outlet obstruction 2/2 prostatomegaly Patient recently started on mirtazapine to aid with depression and appetite stimulation. Will hold for now in the setting of worsening lethargy however depression may be a contributing factor to patient's lack of participation in therapy and poor appetite. (5) Renal mass: Plan: During previous admission found to have 2.1 cm mass of the superior pole right kidney. Renal cell carcinoma is the diagnosis of exclusion. Was scheduled to see urology as an outpatient tomorrow Appreciate urology input (6) Carotid stenosis: Plan: Carotid disease noted on head and neck CTAs Continue BACK WEDGER ASA and statin (7) Paroxysmal supraventricular tachycardia: Plan: Controlled with digoxin (8) Diabetes: Plan: Hgb A1c 4.9 03/2022 All diabetic agents discontinued at [facility] due to borderline hypoglycemia and also to help and aid in GI upset Mild hyperglycemia noted on labs today, infection may be contributing Will provide conservative NovoLog coverage while admitted (9) HTN (hypertension): Plan: Continue lisinopril (10) DVT prophylaxis: Plan: SQ Lovenox Admission and Anticipated Discharge Date Admission Date: April 17, 2022 History of Present Illness Chief Complaint: Weakness, lethargy Primary Care Provider: Jesse Real DO 77-year-old male with PMH DM type II, HLD, paroxysmal SVT, history of right hip fracture 01/2022, history of acute acalculous cholecystitis s/p cholecystectomy with postoperative course complicated by hemorrhagic shock 02/2022, chronic bladder outlet obstruction with recurrent UTI, and other problems below who presents to the ED from [facility] for evaluation of generalized weakness and lethargy. Patient's daughter is at the bedside who provides history. Patient recently admitted to [facility] 03/12 through 03/18 for sepsis secondary to Klebsiella UTI. Patient also noted to have prostatomegaly with evidence of chronic Bladder outlet obstruction and right renal mass, urology follow-up pending. Patient's daughter states that the patient continues to be very weak and has not been participating with therapy. He also has had an extremely poor appetite. All diabetic meds were discontinued due to borderline hypoglycemia and an attempt to aid in nausea control. While at [facility], patient has been found to have a urinary retention and has been refusing straight cath and Meza catheter. Found to have Klebsiella UTI on 03/31 and treated with a course of Macrobid. Culture noted intermediate sensitivity to Macrobid. Daughter states that she notices increased lethargy and weakness over the past 10 days. Patient was started on mirtazapine on 04/12 to aid with depression and appetite stimulation. No reported fevers. During my exam, I attempted to obtain history from the patient however he falls back to sleep quickly. He offers no complaints. In the ED, he is afebrile without leukocytosis. UA is suggestive of UTI. Patient was given IVF and IV ceftriaxone. Allergies Allergy/AdvReac Type Severity Reaction Status Date / Time oxycodone AdvReac lethargy Verified 04/17/22 12:01 Home Medications Medication Instructions Recorded Confirmed Type atorvastatin 20 mg tablet 20 mg PO DAILY #30 tabs 02/09/22 04/17/22 Rx digoxin 250 mcg (0.25 mg) tablet 250 mcg PO DAILY #30 tabs 02/09/22 04/17/22 Rx docusate sodium 100 mg capsule 100 mg PO BID #60 caps 02/09/22 04/17/22 Rx (Stool Softener) ferrous gluconate 324 mg (38 mg 324 mg PO QAM #30 tabs 02/09/22 04/17/22 Rx iron) tablet multivitamin 1 tab PO DAILY #30 tabs 02/09/22 04/17/22 Rx sennosides 8.6 mg tablet (Senokot) 17.2 mg PO HS #30 tabs 02/09/22 04/17/22 Rx alpha lipoic acid 600 mg tablet 1,200 mg PO DAILY 02/18/22 04/17/22 History aspirin 81 mg tablet,delayed 81 mg PO DAILY 02/18/22 04/17/22 History release tamsulosin 0.4 mg capsule 0.4 mg PO HS #30 caps 03/18/22 04/17/22 Rx lisinopril 10 mg tablet 10 mg PO DAILY 04/17/22 04/17/22 History mirtazapine 15 mg tablet 15 mg PO HS 04/17/22 04/17/22 History pantoprazole 40 mg tablet,delayed 40 mg PO DAILY 04/17/22 04/17/22 History release Past Med/Surg History Medical History Closed fracture of right hip Diabetes Duodenal ulcer HTN (hypertension) Paroxysmal supraventricular tachycardia Surgical History History of total hip arthroplasty S/P cholecystectomy Family History Other Cancer Lung disease Social History Smoking Status: Former smoker Tobacco Type: Cigarettes Second Hand Exposure: No; Hx Alcohol Use: No Hx Substance Use: No Preferred Language: Malay Communication Ability: Effective Iron Setter Required: No Beliefs That Will Affect Care: None marital status: Current Living Situation: Spouse and Long Term How many Children do You have: 2 Other Information That Helps Us Care for You: No Feels Safe at Home: Yes Assistive Devices: Denture - Upper, Denture - Lower, Glasses and Walker Review of Systems Review of Systems: Unobtainable due to cognitive status Physical Exam Constitutional: + ill appearing and + thin; no acute distress Vitals as above Eyes: PERRL, conjunctivae normal, anicteric sclerae ENMT: external ear and nose normal, oropharynx normal Respiratory: normal respiratory effort, lungs clear to auscultation Cardiovascular: Rate/Rhythm: regular rate and regular rhythm Vessels: normal peripheral pulses Extremities: no edema Gastrointestinal (Abdomen): normal bowel sounds, soft, nontender, no hepatosplenomegaly Musculoskeletal: Extremities: no cyanosis and no clubbing BL UE strength 4/5, BL LE strength 3-4/5 Skin: no rashes, warm and dry Neurologic: PERRL, EOMI, accommodation nl, no face palsy, no dysarthria Psychiatric: Orientation: oriented to person; + not alert, + not oriented to place and + not oriented to time Sleeping during most of exam, arouses easily to verbal stimuli however falls back to sleep quickly Results & Data Results & Data ([facility]) Vital Signs (Past 12 Hours) Vital Signs Temp Pulse Pulse Resp BP BP Pulse Ox 04/17/22 19:50 36.1 C L 74 16 144/75 H 97 04/17/22 17:52 76 16 142/70 H 98 04/17/22 16:48 74 16 112/63 97 04/17/22 15:16 77 18 119/62 98 04/17/22 14:03 82 18 114/71 98 04/17/22 12:31 79 16 124/60 99 04/17/22 11:50 82 18 115/60 98 04/17/22 11:08 97 04/17/22 11:04 37.0 C 83 18 117/64 97 O2 Del Method 04/17/22 19:50 Room Air 04/17/22 17:52 Room Air 04/17/22 16:48 Room Air 04/17/22 15:16 Room Air 04/17/22 14:03 Room Air 04/17/22 12:31 Room Air 04/17/22 11:50 Room Air 04/17/22 11:08 Room Air 04/17/22 11:04 Room Air Laboratory Results Short CBC 04/17/22 Range/Units 11:38 WBC 11.01 H (4.8-10.8) K/ul Hgb 12.5 L (14.0-18.0) g/dl Hct 37.7 L (40.1-51.0) % Plt Count 276 (130-400) K/uL BMP 04/17/22 11:38 Sodium 135 L Potassium 4.4 Chloride 100 Carbon Dioxide 28 BUN 33 H Creatinine 1.19 Glucose 175 H Calcium 9.4 Cardiac Enzymes 04/17/22 Range/Units 11:38 Total Creatine Kinase 33 (30-223) U/L Liver Function 04/17/22 Range/Units 11:38 Total Bilirubin 0.4 (0.2-1.0) mg/dl AST 12 L (13-39) U/L ALT 8 (7-52) U/L Alkaline Phosphatase 81 (34-104) U/L Albumin 3.5 (3.4-5.0) gm/dl Urine 04/17/22 Range/Units 16:00 Urine Color Dark Yellow Urine Appearance Turbid A (Clear) Urine pH 5.5 (4.5-7.5) Ur Specific [place] 1.036 H (1.000-1.030) Urine Protein 2+ H (Negative) Urine Glucose (UA) 2+ H (Negative) Diagnostic Findings Chest X-Ray 04/17/22 11:22 XR chest 1V portable CLINICAL HISTORY: weakness COMPARISON STUDY: Chest CT February 18, 2022. Chest radiograph March 12, 2022. FINDINGS: Lung volumes are diminished. Elevation of the hemidiaphragms is unchanged. There is no pneumothorax or pleural effusion. No consolidation is identified. Cardiac size is normal. Mediastinal contours are normal. There is no evidence for pulmonary edema. Calcified right upper lobe granuloma is incidentally noted. IMPRESSION: No acute cardiopulmonary findings. No change in appearance of the chest. ACT 112: Negative or not required by law. Electronically signed by: Julio Navas M.D. 04/17/2022 11:[address] 04/17/22 14:21 CT OF THE HEAD WITHOUT CONTRAST CLINICAL HISTORY: weakness, intermittent confusion COMPARISON STUDY: MRI of the brain June 04, [address] March 12, 2022. TECHNIQUE: Helical axial images of the head were obtained without IV contrast. Automated exposure control was utilized for the study. A dose lowering technique was utilized adhering to the principles of ALARA. FINDINGS: No acute intracranial hemorrhage, midline shift or mass effect is present. Ventricular dilatation is unchanged and likely related to atrophy. White matter hypodensities are similar to prior exam and favor small vessel disease. The basal cisterns are patent. No extra-axial collections are present. There are no findings to suggest acute dural sinus thrombosis or acute territorial infarct. No significant calvarial abnormalities are present. Visualized portions of the sinuses and mastoid air cells are clear. IMPRESSION: No acute intracranial findings. No change in appearance of the brain. ACT 112: Negative or not required by law. Electronically signed by: Julio Navas M.D. 04/17/2022 3:06 PM Head CTA 04/17/22 14:21 CTA ANGIOGRAPHY OF THE HEAD CLINICAL HISTORY: weakness, intermittent confusion COMPARISON STUDY: Head CT March 12, 2022. TECHNIQUE: Helical axial images of the head were obtained following uneventful intravenous administration of 97 cc of Optiray. Sagittal and coronal reconstructions were viewed as well as maximal intensity projections on an independent 3-D workstation. Automated exposure control was utilized for the study. A dose lowering technique was utilized adhering to the principles of ALARA. FINDINGS: Please note that the head CT will be reported separately. Ventricular dilatation is unchanged since prior head CT. This is likely due to atrophy. The basal cisterns are patent. There are no extra-axial collections. White matter hypodensity suggests small vessel disease. There is extensive calcified plaque within bilateral cavernous carotids. This results in moderate stenosis of the left cavernous carotid and mild stenosis of the right cavernous carotid. No intracranial aneurysm is identified. There is no central vessel occlusion. There is moderate plaque within the intracranial portions of the bilateral vertebral arteries without significant stenosis. Posterior cerebral arteries are patent. Basilar artery is patent. IMPRESSION: 1. No central vessel occlusion. No intracranial aneurysm. 2. Extensive calcified plaque within the bilateral cavernous carotids which results in moderate stenosis of the left cavernous carotid and mild stenosis of the right cavernous carotid. ACT 112: Negative or not required by law. Electronically signed by: Julio Navas M.D. 04/17/2022 3:20 PM Neck CTA 04/17/22 14:21 CT ANGIOGRAPHY OF THE NECK WITH CONTRAST CLINICAL HISTORY: weakness, intermittent confusion COMPARISON STUDY: No previous studies for comparison. Technique: CT angiography of the carotid and vertebral arteries was obtained using Optiray and 3D reconstruction on an independent workstation. NASCET criteria was utilized. Automated exposure control was utilized for the study. A dose lowering technique was utilized adhering to the principles of ALARA. CT DOSE: 1345.63 mGy.cm Findings: There is no cervical lymphadenopathy. No acute cervical spine fracture is noted. There is moderate stenosis at the origins of the bilateral vertebral arteries. No additional stenoses are identified within the vertebral arteries. There is no dissection within the major vessels of the neck. There is moderate plaque within the proximal bilateral internal carotid arteries without significant stenosis. No aneurysm within the neck is noted. CTA of the head will be reported separately. IMPRESSION: 1. Moderate plaque within the proximal bilateral internal carotid arteries without significant stenosis. 2. 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 ACT 112: Negative or not required by law. Electronically signed by: Julio Navas M.D. 04/17/2022 3:16 PM Code Status & VTE Plan Code Status Patient is a DNR as per my discussion with patient's daughter who is the bedside. VTE Prophylaxis Plan VTE Prophylaxis will be ordered: Yes Supervising Physician Co-Signing Physician Notes 77-year-old man presented with his daughter from [facility] for generalized malaise and hypotension. Upon EMS from arrival the blood pressure was up in the 100s. Per ER notes patient reported he was lightheaded this morning but currently feels at his baseline. Work-up in the ER revealed a urinary tract infection with no evidence of sepsis. A CT of the head with CTA of the head and neck demonstrated mild carotid disease without evidence of ischemia or intracranial hemorrhage. As a result of daughter's concern with weakness in the setting of UTI he was admitted. Upon arrival to the patient's room on the floor it was around 9:45 PM and the patient was trying to sleep. I introduced myself and he woke up but did not move much. I asked him if he could tell me what brought him into the hospital and he became angry. He started cursing at me and called me a "GD nurse." I explained that I am his attending physician and needed to assess him to ensure we have an accurate treatment plan for his needs. He seemed to apologize but then became angry again and started asking me my rank. I told him I did not understand the question and he proceeded to be angry and upset with my presence there. I told him I did not want to upset him and we would defer the examination until the morning. He was covered under blankets and I could not tell if he was moving his arms or legs or much else from the exam except that he appeared to be oriented and aware of his surroundings. He did not appear confused or delirious, as he was responding appropriately, but this is of course very possible given his infection and change in environment. Overall agree with plan to empirically treat him with Rocephin pending culture results and clinical improvement. Would have PT and OT assess him formally. Appreciate urology consultation and will schedule bladder scans given the patient has declined Meza catheter repeatedly in the setting of urinary retention related to bladder outlet obstruction. We will continue Flomax to help facilitate urination. Regarding renal mass outpatient follow-up is recommended. DO Maykel.
[2022-04-17] MEDS: DOCUSATE SODIUM 100 MG CAP PO SCH (21:28)
[2022-04-17] MEDS: SENNA 8.6 MG TAB PO SCH (21:28)
[2022-04-17] MEDS: TAMSULOSIN HCL 0.4 MG CAP PO SCH (21:28)
[2022-04-17] MEDS: ENOXAPARIN INJ 40 MG/0.4 ML SYR SQ SCH (21:28)
[2022-04-17] MEDS: INSULIN ASPART PER UNIT SC SCH (21:36)
--- NOTE | 2022-04-17 21:55 | Urology Consultation ---
Date of Consultation April 17, 2022 Assessment & Plan (1) Urinary retention: Patient has been admitted on the hospitalist service. Recommend proceeding as follows: Continue antibiotics in form of Rocephin. Antibiotics can be further tailored based on urine culture results Follow bladder scans. Has been recommended to the patient that Meza catheter be placed for maximal urinary drainage in the setting of urinary tract infection but the patient has refused this modality just as he did during his previous admission Recommend continuing Flomax to help facilitate urination Concerning patient renal mass outpatient follow-up can be employed as recommended during previous admission (2) Renal mass: History of Present Illness Reason for Consultation: Urinary retention and right renal mass Attending Physician: Norma Brar, History of Present Illness This is a 77-year-old male who is known to the [facility] physician group urology service. The patient was admitted to the hospital in early March of this year and urology was consulted secondary to urinary retention as well as history of a right renal mass. During that admission the patient was admitted with the patient was found to have a urinary tract infection and was also suffering from the bladder outlet obstruction. During that visit the patient had an external catheter which was draining clear yellow urine. The patient did have several bladder scans where the patient was noted to have postvoid residual volumes ranging from anywhere from 375 to 1064 mL. Due to the patient's urinary tract infection and concern for bladder outlet obstruction it was recommended that patient have a Meza catheter placed for bladder decompression and maximal drainage. Patient declined this modality. Plans were put in place for patient to have outpatient follow-ups concerning for a right renal mass the patient had as well as his urinary retention. The patient's most recent abdominal CT scan available for review was from 03/12/2022. This study showed a 2 cm enhancing lesion in the upper pole of the right kidney. The patient represented to [facility] emergency department earlier today secondary to generalized weakness and lethargy. I visited with the patient at the bedside and the patient does note that he has had a decreased appetite but denies any nausea or vomiting. The patient says that he feels as though he is able to void without difficulty and says he feels as though his bladder empties after he voids. He denies any fevers, shakes, or chills. He denies any dysuria. He denies any back or flank pain. Since arrival to [facility] the patient has had labs and imaging which I independent reviewed. The chest x-ray showed no evidence of pneumonia. He did have a CT scan of the head that showed no acute intracranial findings. He had a CT angiogram of the neck showed no significant carotid stenosis but did have short segment stenosis of the bilateral vertebral arteries. A CT angiogram of the head showed no central vessel occlusions. There is no evidence of intracranial aneurysms. Labs include a CBC her white blood cell count was 11.0. Hemoglobin and hematocrit were 12.5 and 37.7. Platelet count is 276,000. Chemistry profile showed sodium is 135 with a normal potassium. BUN was 33 and his creatinine was normal at 1.1. A urinalysis was positive for nitrites. There is also 3+ leukocyte Estrace and greater than 30 white blood cells per high-power field and 4+ bacteria. COVID testing was noted to be negative as well as testing for RSV parainfluenza virus and influenza. Since admission the patient has had blood and urine cultures sent. Review of urine culture show that on 03/12/2022 he did have a Klebsiella urinary tract infection with intermediate resistance to nitrofurantoin. No other resistances were noted. Since admission the patient has been started on antibiotics in the form of ceftriaxone. He is also been initiated on Flomax. At the time of my interview the patient was resting in bed and he did not appear to be in any distress. Allergies Allergy/AdvReac Type Severity Reaction Status Date / Time oxycodone AdvReac lethargy Verified 04/17/22 12:01 Home Medications Medication Instructions Recorded Confirmed Type atorvastatin 20 mg tablet 20 mg PO DAILY #30 tabs 02/09/22 04/17/22 Rx digoxin 250 mcg (0.25 mg) tablet 250 mcg PO DAILY #30 tabs 02/09/22 04/17/22 Rx docusate sodium 100 mg capsule 100 mg PO BID #60 caps 02/09/22 04/17/22 Rx (Stool Softener) ferrous gluconate 324 mg (38 mg 324 mg PO QAM #30 tabs 02/09/22 04/17/22 Rx iron) tablet multivitamin 1 tab PO DAILY #30 tabs 02/09/22 04/17/22 Rx sennosides 8.6 mg tablet (Senokot) 17.2 mg PO HS #30 tabs 08/31/22 11/06/22 Rx alpha lipoic acid 600 mg tablet 1,200 mg PO DAILY 02/18/22 04/17/22 History aspirin 81 mg tablet,delayed 81 mg PO DAILY 02/18/22 04/17/22 History release tamsulosin 0.4 mg capsule 0.4 mg PO HS #30 caps 03/18/22 04/17/22 Rx lisinopril 10 mg tablet 10 mg PO DAILY 04/17/22 04/17/22 History mirtazapine 15 mg tablet 15 mg PO HS 04/17/22 04/17/22 History pantoprazole 40 mg tablet,delayed 40 mg PO DAILY 04/17/22 04/17/22 History release Patient History Medical History Closed fracture of right hip Diabetes Duodenal ulcer HTN (hypertension) Paroxysmal supraventricular tachycardia Surgical History History of total hip arthroplasty S/P cholecystectomy Family History Other Cancer Lung disease Social History Smoking Status: Former smoker Tobacco Type: Cigarettes Second Hand Exposure: No; Hx Alcohol Use: No Hx Substance Use: No Preferred Language: Macedonian Communication Ability: Effective Manager Rn Required: No Beliefs That Will Affect Care: None marital status: Current Living Situation: Spouse and Jail How many Children do You have: 2 Other Information That Helps Us Care for You: No Feels Safe at Home: Yes Assistive Devices: Denture - Upper, Denture - Lower, Glasses and Walker Review of Systems Constitutional: + fatigue and + weakness; no fever and no chills Eyes: no eye pain Ear, Nose, Mouth, Throat: no ear pain Respiratory: no cough Cardiovascular: no chest pain Gastrointestinal: no abdominal pain, no nausea and no vomiting Genitourinary: no dysuria Musculoskeletal: no back pain Integumentary: no rash Neurologic: + generalized weakness Physical Exam Constitutional: well developed and well nourished; no acute distress Eyes: no conjunctival abnormality ENMT: Ears: no hearing impairment and no external ear abnormality Mouth: no oropharynx abnormality Neck: trachea midline Respiratory: normal respiratory effort; no respiratory distress and no labored breathing Cardiovascular: Rate/Rhythm: regular rate and regular rhythm Gastrointestinal (Abdomen): Soft, nonrigid, nondistended. No pain with palpation Musculoskeletal: No calf tenderness Skin: no rashes Neurologic: moves all extremities Results & Data ([facility]) Vital Signs (Past 12 Hours) Vital Signs Temp Pulse Pulse Resp BP BP Pulse Ox 04/17/22 19:50 36.1 C L 74 16 144/75 H 97 04/17/22 17:52 76 16 142/70 H 98 04/17/22 16:48 74 16 112/63 97 04/17/22 15:16 77 18 119/62 98 04/17/22 14:03 82 18 114/71 98 04/17/22 12:31 79 16 124/60 99 04/17/22 11:50 82 18 115/60 98 04/17/22 11:08 97 04/17/22 11:04 37.0 C 83 18 117/64 97 O2 Del Method 04/17/22 19:50 Room Air 04/17/22 17:52 Room Air 04/17/22 16:48 Room Air 04/17/22 15:16 Room Air 04/17/22 14:03 Room Air 04/17/22 12:31 Room Air 04/17/22 11:50 Room Air 04/17/22 11:08 Room Air 04/17/22 11:04 Room Air PG Care Time/CCT Total # of Minutes Spent Total Time Spent with Patient: Total time spent is greater than 50% in coordination of care (as documented) at patient's floor/unit and/or counseling patient: Coding Level of Care Code 27094 Inpt Consult Level 5 Diagnoses Urinary retention R33.9 Renal mass N28.89
[2022-04-18 07:42] LABS: Hematocrit (blood only) 33.4 % (40.1-51.0); Hemoglobin 10.9 g/dl (14.0-18.0); Mean Corpuscular Hemoglobin 27.9 pg (25.0-34.0); Mean Corpuscular Hgb Conc 32.6 g/dL (32.0-36.0); Mean Corpuscular Volume 85.4 fL (80.0-100.0); Mean Platelet Volume 10.2 fL (9.4-12.4); Platelet Count 257 K/uL (130-400); RDW Coefficient of Variation 15.1 % (11.5-14.5); RDW Standard Deviation 47.3 fL (36.4-46.3); Red Blood Count 3.91 M/uL (4.63-6.08); White Blood Count 9.71 K/ul (4.8-10.8)
[2022-04-18 08:11] LABS: Calcium 8.8 mg/dl (8.5-10.1); Creatinine Clr Calc Pharmacy 90.2 ml/min; Est GFR (African American) 101.8 ml/min; Est GFR (Non-African American) 87.9 ml/min; Potassium 3.9 mmol/L (3.5-5.1)
[2022-04-18] MEDS: ASPIRIN 81 MG ECTAB PO SCH (08:46)
[2022-04-18] MEDS: FERROUS GLUCONATE 324 MG TAB PO SCH (08:46)
[2022-04-18] MEDS: ATORVASTATIN 20 MG TAB PO SCH (08:46)
[2022-04-18] MEDS: DOCUSATE SODIUM 100 MG CAP PO SCH ×2 (08:46→20:42)
[2022-04-18] MEDS: DIGOXIN 0.25 MG TAB PO SCH (08:46)
[2022-04-18] MEDS: lisinopril 10 MG TAB PO SCH (08:46)
[2022-04-18] MEDS: PANTOprazole 40 MG TAB PO SCH (08:46)
[2022-04-18] MEDS: INSULIN ASPART PER UNIT SC SCH ×4 (08:47→20:42)
--- NOTE | 2022-04-18 09:48 | Electrocardiogram Report ---
Test Reason : Blood Pressure : / mmHG Vent. Rate : 084 BPM Atrial Rate : 084 BPM P-R Int : 226 ms QRS Dur : 128 ms QT Int : 354 ms P-R-T Axes : 055 -02 039 degrees QTc Int : 418 ms Sinus rhythm with 1st degree A-V block Right bundle branch block Abnormal ECG When compared with ECG of 12-MAR-2022 14:07, ND interval has increased Confirmed by Cole Warren ([id number]) on 04/18/2022 9:48:15 AM Referred By: REFERRED SELF Confirmed By:Cole Warren
--- NOTE | 2022-04-18 12:58 | Hospitalist Progress Note ---
Date of Service April 18, 2022 Assessment & Plan (1) Metabolic encephalopathy: (2) UTI (urinary tract infection): (3) Enlarged prostate: (4) Urinary retention: Plan: Urinary tract infection Acute metabolic encephalopathy --CT Head:No acute intracranial findings. No change in appearance of the brain. --Head CTA:No central vessel occlusion. No intracranial aneurysm. Extensive calcified plaque within the bilateral cavernous carotids which results in moderate stenosis of the left cavernous carotid and mild stenosis of the right cavernous carotid. --Neck CTA:Moderate plaque within the proximal bilateral internal carotid arteries without significant stenosis. 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 -- Blood, urine culture pending Continue Rocephin empirically Urinary retention Chronic bladder outlet obstruction due to BPH Continue on bladder scan Refused Meza catheter placement Appreciate urology input Continue Flomax (5) Renal mass: Plan: Recently found to have 2.1 cm mass of the superior pole right kidney. Can not rule out RCC Needs follow up with Urology as an outpatient Appreciate urology input (6) Carotid stenosis: Plan: Peripheral artery disease Imaging studies as above Continue aspirin, statin Would benefit from vascular evaluation as outpatient (7) Paroxysmal supraventricular tachycardia: Plan: Controlled with digoxin (8) Diabetes: Plan: Hgb A1c 4.9 03/2022 Diabetic medications discontinued at [facility] due to borderline hypoglycemia and also to help and aid in GI upset Continue NovoLog while hospitalized (9) HTN (hypertension): Plan: Continue lisinopril Depression Anorexia Resume Mirtazapine as able (10) DVT prophylaxis: Plan: SQ Lovenox Admission and Anticipated Discharge Date Admission Date: April 17, 2022 Subjective Patient is seen and examined at bedside Poor historian Offers no complaints Denies any dysuria, hematuria, chest pain, dyspnea, abdominal pain No other complaints Review of Systems Review of Systems: All systems reviewed & are unremarkable except as noted in Subjective Physical Exam Physical Exam: Physical Exam: Vitals signs as noted above General Appearance:Thin, elderly, no apparent distress Head: normocephalic, Atraumatic Eyes: normal inspection, EOMI Neck: supple, Trachea midline Respiratory/Chest: Normal breath sounds, CTA, No accessory muscle use Cardiovascular: S1, S2, + murmur Abdomen/GI:Soft, Non tender, Bowel sounds present Extremities/Musculoskeletal:normal inspection, no edema Neurologic/Psych:AAO, grossly no focal neurological deficits Skin: normal color, warm Results & Data Results & Data ([facility]) Vital Signs (Past 12 Hours) Vital Signs Temp Pulse Resp BP Pulse Ox O2 Del Method 04/18/22 07:58 36.6 C 70 19 130/50 L 97 Room Air Laboratory Results Short CBC 04/18/22 Range/Units 06:26 WBC 9.71 (4.8-10.8) K/ul Hgb 10.9 L (14.0-18.0) g/dl Hct 33.4 L (40.1-51.0) % Plt Count 257 (130-400) K/uL BMP 04/18/22 06:26 Sodium 139 Potassium 3.9 Chloride 105 Carbon Dioxide 26 BUN 24 H Creatinine 0.75 D Glucose 91 Calcium 8.8 Urine 04/17/22 Range/Units 16:00 Urine Color Dark Yellow Urine Appearance Turbid A (Clear) Urine pH 5.5 (4.5-7.5) Ur Specific [place] 1.036 H (1.000-1.030) Urine Protein 2+ H (Negative) Urine Glucose (UA) 2+ H (Negative)
[2022-04-18] MEDS ORDERED: LIDOCAINE 2% JELLY 5 ML TUBE EXT ONE (16:41)
[2022-04-18] MEDS: cefTRIAXone SODIUM 1,000 MG in DEXTROSE 5% 50 ML IV SCH (17:24)
[2022-04-18] MEDS: ACETAMINOPHEN 325 MG TAB PO PRN (20:41)
[2022-04-18] MEDS: ENOXAPARIN INJ 40 MG/0.4 ML SYR SQ SCH (20:41)
[2022-04-18] MEDS: SENNA 8.6 MG TAB PO SCH (20:42)
[2022-04-18] MEDS: TAMSULOSIN HCL 0.4 MG CAP PO SCH (20:42)
[2022-04-19 06:40] LABS: Hematocrit (blood only) 31.5 % (40.1-51.0); Hemoglobin 10.4 g/dl (14.0-18.0); Mean Corpuscular Hemoglobin 27.7 pg (25.0-34.0); Mean Platelet Volume 9.7 fL (9.4-12.4); Platelet Count 242 K/uL (130-400); RDW Coefficient of Variation 14.9 % (11.5-14.5); RDW Standard Deviation 45.6 fL (36.4-46.3); Red Blood Count 3.75 M/uL (4.63-6.08); White Blood Count 7.73 K/ul (4.8-10.8)
[2022-04-19 07:29] LABS: BUN Creatinine Ratio 35.3 (10-20); Calcium 8.8 mg/dl (8.5-10.1); Creatinine Clr Calc Pharmacy 99.5 ml/min; Est GFR (Non-African American) 91.5 ml/min; Magnesium 1.8 mg/dl (1.7-2.4); Potassium 3.6 mmol/L (3.5-5.1)
[2022-04-19] MEDS: PANTOprazole 40 MG TAB PO SCH (08:29)
[2022-04-19] MEDS: ATORVASTATIN 20 MG TAB PO SCH (08:29)
[2022-04-19] MEDS: lisinopril 10 MG TAB PO SCH (08:30)
[2022-04-19] MEDS: FERROUS GLUCONATE 324 MG TAB PO SCH (08:30)
[2022-04-19] MEDS: DIGOXIN 0.25 MG TAB PO SCH (08:31)
[2022-04-19] MEDS: DOCUSATE SODIUM 100 MG CAP PO SCH ×2 (08:32→21:19)
[2022-04-19] MEDS: INSULIN ASPART PER UNIT SC SCH ×4 (09:08→21:20)
[2022-04-19] MEDS: ASPIRIN 81 MG ECTAB PO SCH (09:14)
--- NOTE | 2022-04-19 09:27 | Urology Progress Note ---
Date of Service April 19, 2022 Assessment & Plan (1) UTI (urinary tract infection): (2) Renal mass: Plan: Follow-up urinary retention, UTI and renal mass. Patient afebrile, lab work reviewed - creatinine 0.68, WBC 7.73 Urine culture 04/17 - preliminary gram negative bacilli. Blood cultures - no growth x 24 hours. Continue IV Ceftriaxone and narrow per sensitivity date when available. Maintain Meza catheter for maximum drainage. Continue supportive care, antibiotics and management per hospital medicine. Will arrange outpatient follow-up with our service for urinary retention/voiding trial and follow-up of renal mass. Admission and Anticipated Discharge Date Admission Date: April 17, 2022 Subjective Patient seen and examined at bedside. Resting in bed, arouses to his name, but somnolent. He denies abdominal or flank pain. Meza intact and draining cloudy yellow and purulent appearing urine. No nausea or vomiting. No fever or chills. Review of Systems Constitutional: as per Subjective / HPI Gastrointestinal: as per Subjective / HPI Genitourinary: + as per Subjective / HPI Physical Exam Constitutional: well developed and well nourished; no acute distress and not ill appearing Respiratory: normal respiratory effort and able to speak in complete sentences; no respiratory distress and no labored breathing Cardiovascular: Extremities: no pedal edema Gastrointestinal (Abdomen): Inspection/Auscultation: abdomen normal to inspection; abdomen not distended Percussion/Palpation: abdomen soft; abdomen nontender and no guarding Musculoskeletal: Head/Neck/Chest: normocephalic and head atraumatic Neurologic: moves all extremities and awake Psychiatric: Orientation: oriented to person somnolent, but answers questions Genitourinary: Meza intact and draining cloudy yellow and purulent appearing urine Results & Data ([facility]) Vital Signs (Past 12 Hours) Vital Signs Temp Pulse Pulse Resp BP Pulse Ox O2 Del Method 04/19/22 08:31 77 04/19/22 07:30 36.5 C 70 18 119/61 96 Room Air PG Care Time/CCT Total # of Minutes Spent Total Time Spent with Patient: Total time spent is greater than 50% in coordination of care (as documented) at patient's floor/unit and/or counseling patient: Coding Level of Care Code 55184 Subseq Hosp Care Lvl 2 Diagnoses UTI (urinary tract infection) N39.0 Renal mass N28.89
--- NOTE | 2022-04-19 13:29 | Student Report ---
PAUL Med Student Progress Note Date of Service Date of service: April 19, 2022 ROS ROS: See above for pertinent positives & negatives. A total of 10 systems reviewed and were otherwise negative. Physical Exam Physical Exam: Vital signs reviewed. General: Well-appearing [], in no significant distress. HEENT: No scleral icterus, PERRLA, neck supple. Atraumatic. Cardiovascular: Regular rate and rhythm, no extra sounds. Pulmonary: Clear to auscultation bilaterally, normal work of breathing. Abdomen: Soft, nontender, nondistended, positive bowel sounds. Musculoskeletal: Atraumatic, no peripheral edema. Neurologic: Patient awake alert and oriented x 3, full strength in all 4 extremities. Cranial nerves 2 through 12 grossly intact. Skin: Warm, dry, no rash Results Results: Vital Signs Temp 36.6 C 04/19/22 10:55 Pulse 71 04/19/22 10:55 Resp 18 04/19/22 10:55 BP 105/60 04/19/22 10:55 Pulse Ox 96 04/19/22 10:55 O2 Del Method 04/19/22 10:55 Intake & Output 04/18/22 04/19/22 04/19/22 18:59 06:59 18:59 Intake Total 535 / 835 300 / 835 Output Total 150 / 675 525 / 675 Balance 385 / 160 -225 / 160 Weight 78.562 kg Intake: IV 60 / 60 cefTRIAXone SODIUM 1,000 mg In 60 / 60 Dextrose 5% 50 ml @ 100 mls/hr IV Q24H [facility] Rx#:[id number] Oral 475 / 775 300 / 775 Output: Urine 150 / 450 300 / 450 Urine Amount (Catheter) 225 / 225 Meza/Indwelling 225 / 225 Short CBC 04/19/22 Range/Units 06:08 WBC 7.73 (4.8-10.8) K/ul Hgb 10.4 L (14.0-18.0) g/dl Hct 31.5 L (40.1-51.0) % Plt Count 242 (130-400) K/uL BMP 04/19/22 06:08 Sodium 137 Potassium 3.6 Chloride 105 Carbon Dioxide 26 BUN 24 H Creatinine 0.68 Glucose 110 H Calcium 8.8 A&P A&P: Assessment and Plan: 1. UTI Continue ceftriaxone while cultures pending. 2. Metabolic encephalopathy: CT scan showed extensive calcified plaque within the bilateral cavernous carotids which results in moderate stenosis of the left cavernous carotid and mild stenosis of the right cavernous carotid. Continue to monitor neuro status, holding mirtazipine. 3. Carotid stenosis: See CT results. Continue ASA and atorvastatin. 4. Paroxysmal SVT: Pt in ED/admission. Continue digoxin. 5. DM 2: Last A1C 4.9 (03/2022). 6. HTN: Pt well controlled on regimen. Continue lisinopril. 7. Depression/poor appetite: Currently holding mirtazipine d/t pt somnolence. Family concerned about pt not taking anyting for depression. May consider . 8. Renal Mass: Will need to follow up with outpatient urology after discharge. VTE: lovenox subQ injection, SCDs. Disposition:
--- NOTE | 2022-04-19 14:29 | Hospitalist Progress Note ---
Date of Service April 19, 2022 Assessment & Plan (1) Metabolic encephalopathy: (2) UTI (urinary tract infection): (3) Enlarged prostate: (4) Urinary retention: Plan: Recent history includes history of right hip fracture 01/2022, history of acute acalculous cholecystitis s/p cholecystectomy with postoperative course complicated by hemorrhagic shock 02/2022, chronic bladder outlet obstruction with recurrent UTI, recently admitted to [facility] 03/12 through 03/18 for sepsis secondary to Klebsiella UTI. Urine culture from 03/31 at [facility] grew Klebsiella. Patient was treated with a course of Macrobid however noted intermediate sensitivity on culture. Patient presenting from [facility] for evaluation of worsening generalized weakness and lethargy. CT Head:No acute intracranial findings. No change in appearance of the brain. Patient had been refusing Meza catheter placement however became agreeable yesterday and Meza was placed. Continue Flomax Urology following -- rec maintaining Meza catheter for maximal bladder drainage Urine culture growing gram-negative bacilli, sensitivities pending. Blood cultures NGTD. Continue Rocephin (day 3) (5) Renal mass: Plan: Recently found to have 2.1 cm mass of the superior pole right kidney. Can not rule out RCC Needs follow up with Urology as an outpatient. Daughter requesting follow-up with [facility] Urology after discharge. (6) Carotid stenosis: Plan: Head CTA:No central vessel occlusion. No intracranial aneurysm. Extensive calcified plaque within the bilateral cavernous carotids which results in moderate stenosis of the left cavernous carotid and mild stenosis of the right cavernous carotid. Neck CTA:Moderate plaque within the proximal bilateral internal carotid arteries without significant stenosis. 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 Continue ASA and statin Would benefit from vascular evaluation outpatient (7) Depression: Plan: Recently started on mirtazapine at [facility] prior to admission to aid in depression and appetite stimulation. Mirtazapine held on admission due to lethargy and AMS Mental status improved today, AMS and lethargy likely 2/2 UTI. Will resume mirtazapine, monitor response (8) Paroxysmal supraventricular tachycardia: Plan: Controlled with digoxin (9) Diabetes: Plan: Hgb A1c 4.9 03/2022 Diabetic medications discontinued at [facility] due to borderline hypoglycemia and also to help and aid in GI upset Continue NovoLog while hospitalized (10) HTN (hypertension): Plan: Continue lisinopril (11) DVT prophylaxis: Plan: SQ Lovenox Dispo - admitted from [facility] however daughter states that she would like the patient to be discharged home. She has quit her job to help take care of her father. PT/OT. [facility] referral placed. Admission and Anticipated Discharge Date Admission Date: April 17, 2022 Supervising Physician Co-Signing Physician Notes Patient is seen and examined at bedside. Mental status seem to be back to baseline. Offers no complaints today. Denies any chest pain, shortness breath, dizziness, nausea, abdominal pain. Discussed with patient's family at bedside. Urine culture growing gram-negative bacilli. On exam patient is thin, elderly, no distress, normocephalic atraumatic, normal breath sounds, clear to auscultation, S1-S2,+ murmur, no pedal edema, abdomen soft, nontender, normal bowel sounds, alert, awake, oriented, grossly no focal deficits. UTI, acute metabolic encephalopathy, urinary retention. Continue IV Rocephin until cultures finalized. Mental status back to baseline. Continue Meza catheter. Appreciate urology input. I personally reviewed the record. Patient is interviewed and examined at bedside. Patient's care is coordinated with Lyndsey Sanchez MACHINIST HELPER. Please refer to the documentation above for details of patient's presentation and for discussion of other issues. Subjective Follow-up for metabolic encephalopathy, UTI, urinary retention. Patient seen and examined. Sitting up in bed, awake and alert. Patient offers no complaints at this time. Agreed to Meza catheter placement yesterday. Denies chest pain or shortness of breath. No abdominal pain or nausea. Review of Systems Review of Systems: ROS per HPI, all other systems reviewed and negative Physical Exam Constitutional: + thin; no acute distress Respiratory: normal respiratory effort, lungs clear to auscultation Cardiovascular: Rate/Rhythm: regular rate and regular rhythm Vessels: normal peripheral pulses Extremities: no edema Gastrointestinal (Abdomen): Percussion/Palpation: abdomen soft; abdomen nontender Skin: no rashes, warm and dry Neurologic: no focal motor deficits Psychiatric: Orientation: alert and oriented x 3 Affect: + depressed affect and + flat affect Genitourinary: Meza in place draining somewhat cloudy urine Results & Data Results & Data ([facility]) Vital Signs (Past 12 Hours) Vital Signs Temp Pulse Pulse Resp BP Pulse Ox O2 Del Method 04/19/22 10:55 36.6 C 71 18 105/60 96 Room Air 04/19/22 08:31 77 04/19/22 07:30 36.5 C 70 18 119/61 96 Room Air Laboratory Results Short CBC 04/19/22 Range/Units 06:08 WBC 7.73 (4.8-10.8) K/ul Hgb 10.4 L (14.0-18.0) g/dl Hct 31.5 L (40.1-51.0) % Plt Count 242 (130-400) K/uL BMP 04/19/22 06:08 Sodium 137 Potassium 3.6 Chloride 105 Carbon Dioxide 26 BUN 24 H Creatinine 0.68 Glucose 110 H Calcium 8.8
[2022-04-19] MEDS: cefTRIAXone SODIUM 1,000 MG in DEXTROSE 5% 50 ML IV SCH (17:12)
[2022-04-19] MEDS: ENOXAPARIN INJ 40 MG/0.4 ML SYR SQ SCH (21:18)
[2022-04-19] MEDS: SENNA 8.6 MG TAB PO SCH (21:19)
[2022-04-19] MEDS: TAMSULOSIN HCL 0.4 MG CAP PO SCH (21:19)
[2022-04-19] MEDS: MIRTAZAPINE TAB 15 MG TAB PO SCH (21:20)
[2022-04-19] MEDS: ACETAMINOPHEN 325 MG TAB PO PRN (22:35)
[2022-04-20 06:53] LABS: Hematocrit (blood only) 32.4 % (40.1-51.0); Hemoglobin 10.8 g/dl (14.0-18.0); Mean Corpuscular Hemoglobin 27.9 pg (25.0-34.0); Mean Corpuscular Hgb Conc 33.3 g/dL (32.0-36.0); Mean Corpuscular Volume 83.7 fL (80.0-100.0); Mean Platelet Volume 10.2 fL (9.4-12.4); Platelet Count 263 K/uL (130-400); RDW Standard Deviation 45.9 fL (36.4-46.3); Red Blood Count 3.87 M/uL (4.63-6.08); White Blood Count 8.11 K/ul (4.8-10.8)
[2022-04-20 07:53] LABS: BUN Creatinine Ratio 38.3 (10-20); Calcium 8.9 mg/dl (8.5-10.1); Creatinine Clr Calc Pharmacy 112.8 ml/min; Est GFR (African American) 111.6 ml/min; Est GFR (Non-African American) 96.3 ml/min; Potassium 3.5 mmol/L (3.5-5.1)
[2022-04-20] MEDS: ATORVASTATIN 20 MG TAB PO SCH (08:38)
[2022-04-20] MEDS: lisinopril 10 MG TAB PO SCH (08:38)
[2022-04-20] MEDS: DOCUSATE SODIUM 100 MG CAP PO SCH ×2 (08:38→20:39)
[2022-04-20] MEDS: FERROUS GLUCONATE 324 MG TAB PO SCH (08:38)
[2022-04-20] MEDS: ASPIRIN 81 MG ECTAB PO SCH (08:38)
[2022-04-20] MEDS: DIGOXIN 0.25 MG TAB PO SCH (08:38)
[2022-04-20] MEDS: PANTOprazole 40 MG TAB PO SCH (08:38)
[2022-04-20] MEDS: INSULIN ASPART PER UNIT SC SCH ×4 (08:40→20:46)
[2022-04-20] MEDS: cefTRIAXone SODIUM 1,000 MG in DEXTROSE 5% 50 ML IV SCH (09:11)
--- NOTE | 2022-04-20 16:03 | Hospitalist Progress Note ---
Date of Service April 20, 2022 Assessment & Plan (1) Metabolic encephalopathy: (2) UTI (urinary tract infection): (3) Enlarged prostate: (4) Urinary retention: Plan: Recent history includes history of right hip fracture 01/2022, history of acute acalculous cholecystitis s/p cholecystectomy with postoperative course complicated by hemorrhagic shock 02/2022, chronic bladder outlet obstruction with recurrent UTI, recently admitted to [facility] 03/12 through 03/18 for sepsis secondary to Klebsiella UTI. Urine culture from 03/31 at [facility] grew Klebsiella. Patient was treated with a course of Macrobid however noted intermediate sensitivity on culture. Patient presenting from [facility] for evaluation of worsening generalized weakness and lethargy. --CT Head:No acute intracranial findings. No change in appearance of the brain. Continue Flomax Urology following -- rec maintaining Meza catheter for maximal bladder drainage Urine culture growing Klebsiella pneumonia Continue Rocephin Negative blood cultures Plan to discharge on Meza catheter until follow-up with urology as outpatient Needs follow-up with urology upon discharge (5) Renal mass: Plan: Recently found to have 2.1 cm mass of the superior pole right kidney. Can not rule out RCC Needs follow up with Urology as an outpatient. (6) Carotid stenosis: Plan: Head CTA:No central vessel occlusion. No intracranial aneurysm. Extensive calcified plaque within the bilateral cavernous carotids which results in moderate stenosis of the left cavernous carotid and mild stenosis of the right cavernous carotid. Neck CTA:Moderate plaque within the proximal bilateral internal carotid arteries without significant stenosis. 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 Continue ASA and statin Would benefit from vascular evaluation outpatient (7) Depression: Plan: Recently started on mirtazapine at [facility] prior to admission to aid in depression and appetite stimulation. Mirtazapine held on admission due to lethargy and AMS Mental status improved Lethargy likely secondary to UTI Resumed mirtazapine (8) Paroxysmal supraventricular tachycardia: Plan: Continue digoxin (9) Diabetes: Plan: Hgb A1c 4.9 03/2022 Diabetic medications discontinued at [facility] due to borderline hypoglycemia and also to help and aid in GI upset Continue NovoLog while hospitalized (10) HTN (hypertension): Plan: Continue lisinopril (11) DVT prophylaxis: Plan: SQ Lovenox CODE STATUS DNI DNR Disposition Likely discharge home tomorrow Admission and Anticipated Discharge Date Admission Date: April 17, 2022 Subjective Patient is seen and examined at bedside No new complaints Denies any dysuria, hematuria, chest pain, dyspnea, abdominal pain Discussed with Urology today Review of Systems Review of Systems: All systems reviewed & are unremarkable except as noted in Subjective Physical Exam Physical Exam: Physical Exam: Vitals signs as noted above General Appearance:Thin, elderly, no apparent distress Head: normocephalic, Atraumatic Eyes: normal inspection, EOMI Neck: supple, Trachea midline Respiratory/Chest: Normal breath sounds, CTA, No accessory muscle use Cardiovascular: S1, S2, + murmur Abdomen/GI:Soft, Non tender, Bowel sounds present Extremities/Musculoskeletal:normal inspection, no edema Neurologic/Psych:AAO, grossly no focal neurological deficits Skin: normal color, warm Results & Data Results & Data ([facility]) Vital Signs (Past 12 Hours) Vital Signs Temp Pulse Pulse Resp BP Pulse Ox O2 Del Method 04/20/22 14:08 36.5 C 74 16 111/61 98 Room Air 04/20/22 08:38 71 04/20/22 07:46 36.5 C 71 16 102/59 L 96 Room Air
[2022-04-20] MEDS: TAMSULOSIN HCL 0.4 MG CAP PO SCH (20:39)
[2022-04-20] MEDS: MIRTAZAPINE TAB 15 MG TAB PO SCH (20:39)
[2022-04-20] MEDS: SENNA 8.6 MG TAB PO SCH (20:39)
[2022-04-20] MEDS: ENOXAPARIN INJ 40 MG/0.4 ML SYR SQ SCH (20:43)
[2022-04-21 07:00] LABS: Est GFR (African American) 115.7 ml/min; Est GFR (Non-African American) 99.8 ml/min
[2022-04-21] MEDS: INSULIN ASPART PER UNIT SC SCH ×3 (09:42→17:28)
[2022-04-21] MEDS: DIGOXIN 0.25 MG TAB PO SCH (09:46)
[2022-04-21] MEDS: PANTOprazole 40 MG TAB PO SCH (09:46)
[2022-04-21] MEDS: ASPIRIN 81 MG ECTAB PO SCH (09:46)
[2022-04-21] MEDS: FERROUS GLUCONATE 324 MG TAB PO SCH (09:46)
[2022-04-21] MEDS: cefTRIAXone SODIUM 1,000 MG in DEXTROSE 5% 50 ML IV SCH (09:47)
[2022-04-21] MEDS: ATORVASTATIN 20 MG TAB PO SCH (09:47)
[2022-04-21] MEDS: DOCUSATE SODIUM 100 MG CAP PO SCH (09:47)
--- NOTE | 2022-04-21 12:52 | Discharge Summary ---
Date of Service April 21, 2022 Admission HPI Per Admitting Provider 77-year-old male with PMH DM type II, HLD, paroxysmal SVT, history of right hip fracture 01/2022, history of acute acalculous cholecystitis s/p cholecystectomy with postoperative course complicated by hemorrhagic shock 02/2022, chronic bladder outlet obstruction with recurrent UTI, and other problems below who presents to the ED from [facility] for evaluation of generalized weakness and lethargy. Patient's daughter is at the bedside who provides history. Patient recently admitted to [facility] 03/12 through 03/18 for sepsis secondary to Klebsiella UTI. Patient also noted to have prostatomegaly with evidence of chronic Bladder outlet obstruction and right renal mass, urology follow-up pending. Patient's daughter states that the patient continues to be very weak and has not been participating with therapy. He also has had an extremely poor appetite. All diabetic meds were discontinued due to borderline hypoglycemia and an attempt to aid in nausea control. While at [facility], patient has been found to have a urinary retention and has been refusing straight cath and Meza catheter. Found to have Klebsiella UTI on 03/31 and treated with a course of Macrobid. Culture noted intermediate sensitivity to Macrobid. Daughter states that she notices increased lethargy and weakness over the past 10 days. Patient was started on mirtazapine on 04/12 to aid with depression and appetite stimulation. No report ed fevers. During my exam, I attempted to obtain history from the patient however he falls back to sleep quickly. He offers no complaints. In the ED, he is afebrile without leukocytosis. UA is suggestive of UTI. Patient was given IVF and IV ceftriaxone. Admission Exam Per Admitting Provider + ill appearing and + thin; no acute dis tress Vitals as above Eyes: PERRL, conjunctivae normal, anicteric sclerae ENMT: external ear and nose normal, oropharynx normal Respiratory: normal respiratory effort, lungs clear to auscultation Cardiovascular: Rate/Rhythm: regular rate and regular rhythm Vessels: normal peripheral pulses Extremities: no edema Gastrointestinal (Abdomen): normal bowel sounds, soft, nontender, no hepatosplenomegaly D Musculoskeletal: Extremities: no cyanosis and no clubbing BL UE strength 4/5, BL LE strength 3-4/5 Skin: no rashes, warm and dry Neurologic: PERRL, EOMI, accommodation nl, no face palsy, no dysarthria Psychiatric: Orientation: oriented to person; + not alert, + not oriented to place and + not oriented to time Sleeping during most of exam, arouses easily to verbal stimuli however falls back to sleep quickly Principal Diagnosis Metabolic encephalopathy, UTI (urinary tract infection), Urinary retention: Discharge Exam General Appearance: Thin, elderly, NAD Head: normocephalic, Atraumatic Eyes: normal inspection, EOMI Neck: supple, Trachea midline Respiratory/Chest: Normal breath sounds, CTA, No accessory muscle use Cardiovascular: S1, S2, + murmur Abdomen/GI: Soft, Non tender, Bowel sounds present Extremities/Musculoskeletal:normal inspection, no edema Neurologic/Psych: AAO, grossly no focal neurological deficits Skin: normal color, warm Discharge Data Allergies Allergy/AdvReac Type Severity Reaction Status Date / Time oxycodone AdvReac lethargy Verified 04/17/22 12:01 Consultations 04/17/22 17:29 ED Decision to Admit Stat 04/17/22 19:43 Consult Urology Routine Ordered Studies 04/17/22 14:21 CT angio head w con Stat CT angio neck with con Stat CT head/brain wo con Stat Hospital Course (1) Metabolic encephalopathy: (2) UTI (urinary tract infection): (3) Enlarged prostate: (4) Urinary retention: (5) Renal mass: (6) Carotid stenosis: (7) Depression: (8) Paroxysmal supraventricular tachycardia: (9) Diabetes: (10) HTN (hypertension): Plan This is a 77yo M with a PMH of right hip fracture 01/2022, history of acute acalculous cholecystitis s/p cholecystectomy with postoperative course complicated by hemorrhagic shock 02/2022, chronic bladder outlet obstruction with recurrent UTI, recently admitted to [facility] 03/12 through 03/18 for sepsis secondary to Klebsiella UTI. Urine culture revealed Klebsiella UTI and patient treated with IV Rocephin. Repeat urine culture from 03/17/2022 without growth. Completing antibiotic course with cefdinir twice daily at discharge for 10 days total treatment. History of chronic bladder outlet obstruction with Meza catheter in place. Urology recommended maintaining Meza catheter for maximal bladder drainage with follow-up as an outpatient. Initial metabolic encephalopathy has resolved with treatment of infection. Noted to have a 2 cm mass of the superior pole of the right kidney and cannot rule out RCC. Recommend follow-up with urology as an outpatient. Head/neck CTA done on admission shows extensive calcified plaque within bilateral carotids resulting in moderate stenosis. Current only on aspirin and statin but would benefit from outpatient vascular evaluation. Patient hemodynamically stable at time of discharge home with family. Discussed with daughter. Total Time Total Time Spent Total Time Spent (In Minutes): 40 Discharge Plan Discharge Items Patient Disposition: Home - Self-Care Reason For Visit: UTI Discharge Diagnosis: Metabolic encephalopathy, complicated UTI, urinary retention Activity: Resume your previous activity Non-emergency contact: Primary Care Provider Call non-emergency contact if: you have any medication questions, your symptoms worsen and you have a fever Follow-up/Referrals: Jesse Real, [Primary Care Provider] - 04/27/22 1:20 pm (Date & Time 04/27/2022 1:20 PM Provider Sandhya Hargrove PA-C Department [facility] ) Frank Prince MD [Physician] - 04/29/22 12:40 pm Diet: Heart Healthy Addtl Attending Provider Instructions: You were admitted for complicated UTI, urinary retention and generalized weakness Treated for Klebsiella UTI during admission - complete remainder of antibiotic course at discharge Discharging with Meza catheter until follow-up with urology as outpatient RECOMMENDATIONS FOR FOLLOW-UP: Follow up with PCP and urology as listed above. OTHER INSTRUCTIONS: Seek medical attention if you have: * temperature above 101 * chest pain or trouble breathing * abdominal pain, nausea, vomiting * diarrhea, dark stools or bloody stools * any unanswered questions or concerns Call 911 if symptoms are severe. Please take good care of yourself. Call if you have any questions or problems. You can reach a [facility] hospitalist on duty at [facility] 24 hours a day by calling [phone]. Pending Studies at Discharge: No Stand-Alone Forms: My [facility], Smoking Cessation Medications and DC Order Prescriptions: New cefdinir 300 mg capsule 300 mg PO BID 5 Days Qty: 11 0RF Rx Instructions: Take 1 capsule twice daily until course complete. Continued aspirin 81 mg tablet,delayed release (DR/EC) 81 mg PO DAILY alpha lipoic acid 600 mg Tablet 1,200 mg PO DAILY lisinopril 10 mg tablet 10 mg PO DAILY pantoprazole 40 mg tablet,delayed release (DR/EC) 40 mg PO DAILY mirtazapine 15 mg tablet 15 mg PO HS ferrous gluconate 324 mg (38 mg iron) Tablet 324 mg PO QAM Qty: 30 0RF sennosides [Senokot] 8.6 mg Tablet 17.2 mg PO HS Qty: 30 0RF multivitamin Tablet 1 tab PO DAILY Qty: 30 0RF atorvastatin 20 mg tablet 20 mg PO DAILY Qty: 30 0RF digoxin 250 mcg (0.25 mg) tablet 250 mcg PO DAILY Qty: 30 0RF docusate sodium [Stool Softener] 100 mg Capsule 100 mg PO BID Qty: 60 0RF tamsulosin 0.4 mg Capsule 0.4 mg PO HS Qty: 30 1RF Discharge Orders: Discharge Order (Routine); Ordered 04/21/22 Ordered By: Desiree Luis Admission Data Admit Date/Time: 04/17/22 17:33 Attending Provider: Raymond Nieto Admit Provider: Norma Brar Primary Care Provider: Jesse Real Other Providers: Norma Brar ; Moonfrye ; Desiree Luis Supervising Physician Co-Signing Physician Notes Patient is seen and examined at bedside. Doing well today. Offers no complaints. Plan to be discharged home today. Denies any chest pain, shortness breath, dizziness, nausea, abdominal pain, dysuria. On exam patient is thin, elderly, no distress, normocephalic atraumatic, normal breath sounds, clear to auscultation, S1-S2,+ murmur, no pedal edema, abdomen soft, nontender, normal bowel sounds, alert, awake, oriented, grossly no focal deficits. Klebsiella Complicated UTI, acute metabolic encephalopathy, urinary retention. Encephalopathy resolved. Received Rocephin while hospitalized. Plan to discharge on cefdinir to complete 10-day course of antibiotics. continue Meza catheter until follow-up with urology as recommended. Advised to follow-up with PCP, urology upon discharge. Needs further evaluation of renal mass as outpatient. I personally reviewed the record. Patient is interviewed and examined at bedside. Patient's care is coordinated with Desiree Luis PA-C . Please refer to the documentation above for details of patient's presentation and for discussion of other issues.
== END 2022-04-21 19:03 | disposition home health service (06) | DRG 689 ==
LOC: ED 10:57 → 3E 17:33 → SUATTDRO 17:33 → 3E 19:04

== ENCOUNTER 2022-09-12 15:48 | Inpatient (IN) ==
[2022-09-12] MEDS ORDERED: SODIUM CHLORIDE 0.9% 1000ML 1,000 ML IV ONE (16:09)
--- NOTE | 2022-09-12 16:12 | Emergency Department Note ---
Impression & Plan Arrhythmia, Near syncope ED Provider Note Name: VICTOR MANUEL HENDERSON Age: 77 Sex: M Arrives Via: Ambulance Informant: Patient, nursing, EMS ED Provider: Clint Ma MD Chief Complaint: Near syncope Impression: As per impressions above Medical Decision Making: Pleasant 77-year-old gentleman with a history of diabetes, hypertension, SVT, hyperlipidemia arrives for evaluation of near syncope while cooking and required the assistance of his as he collapsed to the ground. He did not strike his head or have full loss of consciousness. He notes he started feeling better shortly thereafter. He still feels a bit tired currently but otherwise denies any symptoms. He is a bit dehydrated on exam but otherwise looks well with no neurologic deficits no abdominal tenderness to palpation and is breathing comfortably. Imaging of his head, chest are unremarkable. Labs are unremarkable. EKG looks good. He did have a brief run of 5 beats of V. tach on the monitor with a brief pause following this. I believe this is probably a real event. This may be the cause of his near syncope. In this setting hospitalist was consulted for further monitoring. Patient is comfortable with this plan and looks well. He has no evidence of PE or dissection. At this time there is no evidence of ACS. I have not found any findings of infectious etiology. I will note patient stated he felt a bit constipated thus a KUB was obtained which is also remarkable for constipation. Patient had no symptoms during this episode is quite brief and thus I do not feel that putting him on pads are required other than close monitoring on monitor. No indication for medication change quite at this time. Prior Medical Record and Triage/Nursing Notes reviewed by Me External chart reviewed by me Differentials:Vasovagal event, dehydration, infection, hypoglycemia, electrolyte abnormalities, cardiac sources, intracerebral event, pulmonary embolism, seizure, toxicologic, neurologic, as well as other pathologies. Vital Signs: reviewed and remarkable for no significant abnormalities Interventions: Normal saline bolus Labs:Reviewed and remarkable for no significant abnormalities Imaging:CT of the head as per my informal interpretation reveals no intracranial hemorrhage nor mass effect 1 view chest x-ray as per my interpretation reveals no infiltrate effusion nor congestive failure findings. KUB of the abdomen pelvis reveals moderate/significant diffuse constipation. EKG:As per my interpretation. Indication near syncope. Sinus rhythm at 71 bpm with a first-degree AV block and evidence of a right bundle branch block. There is a QTc of 441. When compared to an EKG of April 17, 2022 there is no significant change. Cardiac/Tele Monitoring: Cardiac Monitoring: An Order was placed for continuous cardiac monitoring. The monitor shows a rate of 70 with a normal sinus rhythm with a brief episode of what appears to be V. tach. Consults:Hospitalist Plan: Disposition:Hospitalization. Condition: Good History of Present Illness:77-year-old gentleman arrives for evaluation of weakness. Patient notes he was feeling somewhat fatigued throughout the day. While he is making dinner he is so tired he had to just get down on the ground. Denies any syncope or head injury. He notes severe weakness to the point where he cannot walk now. Denies any headache, neck pain, chest pain, shortness of breath, palpitation, abdominal pain, back pain, urinary/bowel symptoms. He admits he might not have been eating or drinking well the last few days. No specific other symptoms or fevers. Past History:See Below Home Medications:See Below Allergies:See Below Vitals:Blood Pressure: 136/71, Pulse 72, RR 18, T 37.0, O2 98% on RA Physical Exam: GENERAL: Patient is elderly appearing and in frail distress. Dehydrated EYES: No scleral icterus, unremarkable pupils. ENT: Mucous membranes dry, no nasal congestion. RESPIRATORY: No dyspnea. Clear to auscultation and equal bilaterally. No wheeze, no rhonchi. CARDIOVASCULAR: Regular rate and rhythm.No murmurs, rubs, gallops appreciated. GASTROINTESTINAL: Abdomen soft, non-tender, no peritonitis. EXTREMITIES: Normal motion all extremities, no cyanosis, no edema. NEUROLOGIC: Alert and oriented, no acute motor or sensory deficits, no focal weakness, cranial nerves grossly intact. SKIN: No rash, no jaundice, no diaphoresis. PSYCH: Appropriate GCS: 15 ED Course: Times/Reassessments: Patient stable throughout he denies any symptoms. He did have an episode of what appears to be short V. tach on the monitor but patient was immediately evaluated and had no symptoms at that time. Clint Ma MD Past Med/Surg History Medical History Closed fracture of right hip Diabetes Duodenal ulcer HLD (hyperlipidemia) HTN (hypertension) Near syncope Paroxysmal supraventricular tachycardia Recurrent UTI Weakness Surgical History History of total hip arthroplasty S/P cholecystectomy Family History Other Cancer Lung disease Social History Smoking Status: Former smoker Tobacco Type: Cigarettes Second Hand Exposure: No; Do You Dip or Chew Tobacco: Yes; Hx Alcohol Use: No Hx Substance Use: Yes Preferred Language: Citizen Of [place] Communication Ability: Effective Director Strategic Planning Required: No Beliefs That Will Affect Care: None marital status: Current Living Situation: Family How many Children do You have: 2 Other Information That Helps Us Care for You: Yes Feels Safe at Home: Yes Assistive Devices: Walker Allergies Allergies Allergy/AdvReac Type Severity Reaction Status Date / Time oxycodone AdvReac lethargy Verified 09/12/22 18:54 Home Meds Home Medications Medication Instructions Recorded Confirmed Echinacea-Welch Seal Liq 1 tsp PO DAILY 09/12/22 09/12/22 acetaminophen 325 mg tablet 650 mg PO Q4 PRN Fever Or Pain 09/12/22 09/12/22 (Tylenol) ammonium lactate 12 % topical cream 1 applic topical DAILY 09/12/22 09/12/22 aspirin 81 mg chewable tablet 81 mg PO DAILY 09/12/22 09/12/22 atorvastatin 20 mg tablet 20 mg PO DAILY 09/12/22 09/12/22 digoxin 250 mcg (0.25 mg) tablet 250 mg PO DAILY 09/12/22 09/12/22 finasteride 5 mg tablet 5 mg PO DAILY 09/12/22 09/12/22 gabapentin 100 mg capsule 100 mg PO BID 09/12/22 09/12/22 iron,carbonyl 65 mg-vitamin C 125 1 tab PO QAM 09/12/22 09/12/22 mg tablet,delayed release (Vitron-C) lisinopril 20 1 tab PO DAILY 09/12/22 09/12/22 mg-hydrochlorothiazide 25 mg tablet multivitamin 1 tab PO DAILY 09/12/22 09/12/22 Results & Data (ED) Vital Signs Vital Signs - 24 hr 09/12/22 17:16 Pulse Rate [Apical] 79 Pulse Rhythm [Apical] Regular Pulse Strength [Apical] Normal Respiratory Rate 18 Respiratory Effort / Characteristics Non-Labored Respiratory Depth Normal Respiratory Pattern Regular Blood Pressure [Left Arm] 149/76 H Blood Pressure Mean [Left Arm] 100 Pulse Oximetry 98 Oxygen Delivery Method Room Air Laboratory Data 09/13/22 07:05 09/13/22 07:05 Lab Results 09/12/22 09/12/22 09/12/22 Range/Units 16:20 16:20 16:22 WBC 13.41 H (4.8-10.8) K/ul RBC 4.11 L (4.70-6.10) M/uL Hgb 12.3 L (14.0-18.0) g/dl Hct 36.5 L (42.0-52.0) % MCV 88.8 (80.0-100.0) fL MCH 29.9 (25.0-34.0) pg MCHC 33.7 (32.0-36.0) g/dL RDW Std Deviation 42.8 (36.4-46.3) fL RDW Coeff of Aleyda 13.2 (11.5-14.5) % Plt Count 275 (130-400) K/uL MPV 10.4 (9.4-12.4) fL Immature Gran % (Auto) 0.4 % Neut % (Auto) 82.9 % Lymph % (Auto) 10.7 % Bay % (Auto) 5.6 % Eos % (Auto) 0.2 % Baso % (Auto) 0.2 % Neut # (Auto) 11.10 H (1.40-6.50) K/uL Lymph # (Auto) 1.44 (1.2-3.4) K/uL Bay # (Auto) 0.75 H (0.11-0.59) K/uL Eos # (Auto) 0.03 (0-0.50) K/uL Baso # (Auto) 0.03 (0-0.2) K/uL Immature Gran # (Auto) 0.06 (0.01-0.20) K/uL Sodium 138 (136-145) mmol/L Potassium 4.2 (3.5-5.1) mmol/L Chloride 102 (98-107) mmol/L Carbon Dioxide 30 (21-32) mmol/L Anion Gap 6 (3-11) BUN 28 H (6-23) mg/dl Creatinine 0.88 (0.6-1.4) mg/dl Est Cr Clr Drug Dosing Not Reportable Est GFR ( Amer) 95.4 ml/min Est GFR (Non-Af Amer) 82.3 ml/min BUN/Creatinine Ratio 31.8 H (10-20) Glucose 210 H (70-99(Fasting)) mg/dl Calcium 9.7 (8.6-10.3) mg/dl Magnesium 1.8 (1.7-2.4) mg/dl Total Bilirubin 0.6 (0.2-1.0) mg/dl Direct Bilirubin TNP AST 36 (13-39) U/L ALT 30 (7-52) U/L Alkaline Phosphatase 193 H (34-104) U/L Troponin I High Sens 10.2 (0-20) pg/ml Total Protein 7.8 (6.0-8.3) gm/dl Albumin 3.9 (3.4-5.0) gm/dl SARS-CoV-2 (PCR) NEGATIVE (Negative) Influenza Type A (PCR) Negative (Neg) Influenza Type B (PCR) Negative (Neg) RSV (RT-PCR) Negative (Neg) Administered Medications Ascorbic Acid (Ascorbic Acid 500 Mg Tab) [facility] Stop: 10/13/22 08:59 Last Admin: 09/13/22 08:19 Dose: 250 mg Documented By: AMAN Aspirin (Aspirin 81 Mg Chew) 81 mg PO DAILY RADHA Stop: 10/13/22 08:59 Last Admin: 09/13/22 08:20 Dose: 81 mg Documented By: AMAN Atorvastatin Calcium (Atorvastatin 20 Mg Tab) 20 mg PO DAILY RADHA Stop: 10/13/22 08:59 Last Admin: 09/13/22 08:20 Dose: 20 mg Documented By: AMAN Finasteride (Finasteride 5 Mg Tab) 5 mg PO DAILY RADHA Stop: 10/13/22 08:59 Last Admin: 09/13/22 08:22 Dose: 5 mg Documented By: AMAN Gabapentin (Gabapentin 100 Mg Cap) 100 mg PO BID [facility] Stop: 10/12/22 20:59 Last Admin: 09/13/22 08:19 Dose: 100 mg Documented By: Admin: 09/12/22 22:08 Dose: 100 mg Documented By: ROCK Heparin Sodium (Porcine) (Heparin Sod 5,000 Unit/0.5 Ml Vial) 5,000 units SQ Q12 [facility] Stop: 10/12/22 20:59 Last Admin: 09/13/22 08:18 Dose: 5,000 units Documented By: Admin: 09/12/22 22:08 Dose: 5,000 units Documented By: ROCK Lisinopril (Lisinopril 20 Mg Tab) 20 mg PO QAM [facility] Stop: 10/13/22 08:59 Last Admin: 09/13/22 08:21 Dose: 20 mg Documented By: AMAN Metoprolol Succinate (Metoprolol Succ 25mg Ext Rel Tab) 12.5 mg PO QAM [facility] Stop: 10/13/22 10:14 Last Admin: 09/13/22 11:06 Dose: 12.5 mg Documented By: AMAN Multivitamins (Multivitamin Tab) 1 tab PO DAILY [facility] Stop: 10/13/22 08:59 Last Admin: 09/13/22 08:22 Dose: 1 tab Documented By: AMAN Polyethylene Glycol (Polyethylene (Miralax) 17 Gm Pack) 17 gm PO DAILY [facility] Stop: 10/13/22 08:59 Last Admin: 09/13/22 08:23 Dose: 17 gm Documented By: AMAN Discontinued Medications Ferrous Sulfate (Ferrous Sulfate 325 Mg Tab) 325 mg PO QAM [facility] Stop: 10/13/22 08:59 Last Admin: 09/13/22 08:22 Dose: 325 mg Documented By: AMAN Sodium Chloride (Nss 1000ml) 1,000 mls @ 999 mls/hr IV .Q1H1M ONE Stop: 09/12/22 17:09 Last Infusion: 09/12/22 17:34 Dose: 0 mls/hr Documented By: AMAN(2) Admin: 09/12/22 16:28 Dose: 999 mls/hr Documented By: AMAN(2) Discharge Plan Visit Data Chief Complaint: Weakness ED Provider: Clint Ma Discharge Problem: Arrhythmia, Near syncope Patient Disposition: Admitted As Inpatient Discharge Instructions Interventions: ED Discharge Assessment Last Done: 09/12/22 19:37
--- NOTE | 2022-09-12 16:41 | XRay Report ---
AP view of the chest; KUB HISTORY: Acute chest and abdominal pain with constipation constipation COMPARISON: None. FINDINGS: CHEST: Cardiac mediastinal and hilar silhouettes are within normal limits. Atherosclerosis of the aorta. Unc hanged subcentimeter calcified granuloma of the right upper lung. Stable left hemidiaphragmatic eleva tion. No pneumothorax, pleural effusion, airspace consolidation or pulmonary edema. Degenerative osborn ges of the shoulders and spine. KUB: The bowel gas pattern is non-obstructive. Moderate to extensive colonic fecal retention. Cholecystect salvatore. Is no organomegaly. No renal calculi. No ureteral calculi. No pneumoperitoneum or pneumatosis. Right hip arthroplasty. No fracture. IMPRESSION: 1. No acute processes of the chest. 2. Nonobstructive bowel gas pattern. 3. Moderate to extensive colonic fecal retention. ACT 112: Negative or not required by law. The above report was generated using voice recognition software. It may contain grammatical, syntax o r spelling errors. Electronically signed by: Eamon Samson M.D. 09/12/2022 4:40 PM
--- NOTE | 2022-09-12 16:44 | CT Scan Report ---
CT head/brain wo con CLINICAL HISTORY: 77 years-old Male with weakness. Acute weakness with altered mental status TECHNIQUE: Multiple axial CT images of the head were obtained without contrast. A dose lowering tech nique was utilized adhering to the principles of ALARA. CT DOSE: 844.62 mGy.cm COMPARISON: 04/17/2022 FINDINGS: No acute intracranial hemorrhage, midline shift, intracranial mass, acute territorial ischemia or abn ormal extra-axial collection. Involutional changes with chronic microvascular ischemic disease. Uncha nged ventriculomegaly with transverse dimension of the lateral ventricles measuring 5.5 cm. Calcifica tions of the falx cerebri. The calvarium is intact. Prior bilateral lens repair. The paranasal sinuses, mastoid air cells, and m iddle ear cavities are clear. IMPRESSION: No acute intracranial abnormality. ACT 112: Negative or not required by law. The above report was generated using voice recognition software. It may contain grammatical, syntax o r spelling errors. Electronically signed by: Eamon Samson M.D. 09/12/2022 4:42 PM
[2022-09-12 17:01] LABS: Basophils # (auto) 0.03 K/uL (0-0.2); Basophils % (auto) 0.2 %; Eosinophils # (auto) 0.03 K/uL (0-0.50); Eosinophils % (auto) 0.2 %; Hematocrit (blood only) 36.5 % (42.0-52.0); Hemoglobin 12.3 g/dl (14.0-18.0); Immature Granulocytes # (auto) 0.06 K/uL (0.01-0.20); Immature Granulocytes % (auto) 0.4 %; Lymphocytes # (auto) 1.44 K/uL (1.2-3.4); Lymphocytes % (auto) 10.7 %; Mean Corpuscular Hemoglobin 29.9 pg (25.0-34.0); Mean Corpuscular Hgb Conc 33.7 g/dL (32.0-36.0); Mean Corpuscular Volume 88.8 fL (80.0-100.0); Mean Platelet Volume 10.4 fL (9.4-12.4); Monocytes # (auto) 0.75 K/uL (0.11-0.59); Monocytes % (auto) 5.6 %; Neutrophils % (auto) 82.9 %; Platelet Count 275 K/uL (130-400); RDW Coefficient of Variation 13.2 % (11.5-14.5); RDW Standard Deviation 42.8 fL (36.4-46.3); Red Blood Count 4.11 M/uL (4.70-6.10); White Blood Count 13.41 K/ul (4.8-10.8)
[2022-09-12 17:13] LABS: Alanine Aminotransferase 30 U/L (7-52); Albumin Level 3.9 gm/dl (3.4-5.0); Alkaline Phosphatase 193 U/L (34-104); Anion Gap 6 (3-11); Aspartate Aminotransferase 36 U/L (13-39); BUN Creatinine Ratio 31.8 (10-20); Bilirubin,Total 0.6 mg/dl (0.2-1.0); Blood Urea Nitrogen 28 mg/dl (6-23); Calcium 9.7 mg/dl (8.6-10.3); Carbon Dioxide 30 mmol/L (21-32); Chloride 102 mmol/L (98-107); Est GFR (African American) 95.4 ml/min; Est GFR (Non-African American) 82.3 ml/min; Glucose 210 mg/dl (70-99(Fasting)); Magnesium 1.8 mg/dl (1.7-2.4); Potassium 4.2 mmol/L (3.5-5.1); Sodium 138 mmol/L (136-145); Total Protein 7.8 gm/dl (6.0-8.3); Troponin I High Sensitivity 10.2 pg/ml (0-20)
[2022-09-12 17:31] LABS: Influenza A virus by PCR Negative (Neg); Influenza B virus by PCR Negative (Neg); RSV by PCR Negative (Neg); SARS CoV2 RNA(COVID-19) Ceph NEGATIVE (Negative)
[2022-09-12] MEDS ORDERED: POLYETHYLENE (MIRALAX) 17 GM PACK PO PRN (18:23)
[2022-09-12] MEDS ORDERED: ACETAMINOPHEN 325 MG TAB PO PRN (18:23)
[2022-09-12] MEDS ORDERED: MAGNESIUM HYDROXIDE SUSP 30 ML UDC PO PRN (18:23)
[2022-09-12] MEDS ORDERED: ONDANSETRON INJ 2 MG/ML 2 ML VIAL IV PRN (18:23)
[2022-09-12] MEDS ORDERED: ALUMINUM/MAGNESIUM SUSP 30 ML UDC PO PRN (18:23)
--- NOTE | 2022-09-12 18:30 | History & Physical Report ---
Date of Service September 12, 2022 Assessment & Plan (1) Weakness: (2) Near syncope: (3) Paroxysmal supraventricular tachycardia: (4) Recurrent UTI: (5) Urinary retention: (6) Dehydration: (7) Diabetes: (8) HTN (hypertension): (9) HLD (hyperlipidemia): (10) Carotid stenosis: Plan Weakness: Near Syncope: Dehydration: Overall fatigue, reports progressive weakness. Reports appetite being normal CXR negative; CT Head negative. KUB negative but fecal retention EKG reviewed, sinus rythm w/ 1st degree HB. 5 beats of VT w/ pause noted in the ED. telemetry, cardio consult, pt/ot. ortho vitals. pSVT: Takes Digoxin; continue h/o Recurrent UTI: H/O Urinary retention: BPH: follows with Urology Takes Finasteride; continue Takes tamsulosin; continue Has leucocytosis at presentation, will send UA and procal, hold of on antibiotic for now. No pain or burn while passing urine at presentation. Diabetes Type 2: A1c of 4.9 in mar. Pt reports his DM meds are discontinued. HTN: c/w home med Creatinine 0.88 HLD: Takes Atorvastatin; continue check lipid panel in AM Carotid Stenosis: Disposition: PCP: Dr. Real Code Status: Full Code VTE Prophylaxis: Hep SC. Seen/documented by Petey Alcantara MD. History of Present Illness Chief Complaint: weakness Primary Care Provider: Jesse Real DO 77-year-old male w/ PMH of T2DM (A1c 4.9 on Mar, 2022 - not on DM meds for now per pt), paroxysmal SVT, HLD, right hip fracture 01/2022, acute acalculous cholecystitis s/p cholecystectomy with postoperative course complicated by hemorrhagic shock 02/2022, chronic bladder outlet obstruction with recurrent UTI who presented to the ED 09/12/22 from home after feeling fatigued, feeling weak and having a near syncopal episode while making baked beans at home with his . Patient had a recent admission 04/17/2022 to 04/21/2022 for generalized weakness and lethargy. Pt had weakness episode a/w dizziness while working in the kitchen, denies fall/chest pain/palpitations/cough/sore throat. Pt reports mild runny nose but reports it is chronic. Denies fall or LOC, was sat by his on chair. Pt reports appetite being good, feels generally constipated. Denies any pain or burning while passing urine. He reports progressive weakness. ED physician noted 5 beats run of V. Tach with a pause (not sure duration, maybe 2-3 secs) and hence decision to admit. Patient will be admitted for further evaluation and management. Please see A/P for further details. Meds were discussed with the patient, appears somewhat not sure regarding details of his current meds, reports he is not on any diabetic meds. radio tower technician tried to reach out pt's dtr twice to confirm the list but couldn't. Will need am provider to reach out to dtr for meds confirmation, currently will go with OP [employer] med list. Plans of care discussed with the patient. Allergies Allergy/AdvReac Type Severity Reaction Status Date / Time oxycodone AdvReac lethargy Verified 09/12/22 18:54 Home Medications Medication Instructions Recorded Confirmed Type Echinacea-Welch Seal Liq 1 tsp PO DAILY 09/12/22 09/12/22 History acetaminophen 325 mg tablet 650 mg PO Q4 PRN Fever Or Pain 09/12/22 09/12/22 History (Tylenol) ammonium lactate 12 % topical cream 1 applic topical DAILY 09/12/22 09/12/22 History aspirin 81 mg chewable tablet 81 mg PO DAILY 09/12/22 09/12/22 History atorvastatin 20 mg tablet 20 mg PO DAILY 09/12/22 09/12/22 History digoxin 250 mcg (0.25 mg) tablet 250 mg PO DAILY 09/12/22 09/12/22 History finasteride 5 mg tablet 5 mg PO DAILY 09/12/22 09/12/22 History gabapentin 100 mg capsule 100 mg PO BID 09/12/22 09/12/22 History iron,carbonyl 65 mg-vitamin C 125 1 tab PO QAM 09/12/22 09/12/22 History mg tablet,delayed release (Vitron-C) lisinopril 20 1 tab PO DAILY 09/12/22 09/12/22 History mg-hydrochlorothiazide 25 mg tablet multivitamin 1 tab PO DAILY 09/12/22 09/12/22 History Past Med/Surg History Medical History (Updated 09/12/22 @ 18:33 by CHIVO Naylor) Closed fracture of right hip Diabetes Duodenal ulcer HLD (hyperlipidemia) HTN (hypertension) Near syncope Paroxysmal supraventricular tachycardia Recurrent UTI Weakness Surgical History History of total hip arthroplasty S/P cholecystectomy Family History Other Cancer Lung disease Social History Smoking Status: Former smoker Tobacco Type: Cigarettes Second Hand Exposure: No; Hx Alcohol Use: No Hx Substance Use: No Preferred Language: Malay Communication Ability: Effective Loom Technician Required: No Beliefs That Will Affect Care: None marital status: Current Living Situation: Spouse and Usp How many Children do You have: 2 Feels Safe at Home: Yes Assistive Devices: Walker Review of Systems Review of Systems: Negative otherwise mentioned in HPI Physical Exam Physical Exam: GENERAL: Alert and oriented x3. NAD, on RA. Appears weak/frail. HEENT: No pallor, no icterus. Pupils equal, round and reactive to light. Oral mucosa moist. NECK: No JVD, no neck masses. HEART: S1 and S2 heard. Regular rate and rhythm. No murmur, no gallop. RESPIRATORY SYSTEM: Normal AP diameter. No accessory muscle use. No wheezing, no crackles. ABDOMEN: Soft, bowel sounds present, nontender, no distention. Scaphoid abdomen. CENTRAL NERVOUS SYSTEM: No facial droop. Speech is clear. Obeys simple commands. Moves extremities. EXTREMITIES: No edema, no erythema seen. Results & Data Results & Data Vital Signs (Past 12 Hours) Vital Signs Pulse Pulse Resp BP BP Pulse Ox O2 Del Method 09/12/22 17:16 79 18 149/76 H 98 Room Air 09/12/22 16:13 73 09/12/22 16:03 72 18 136/71 98 Room Air 09/12/22 16:03 70 18 136/71 98 Room Air Code Status & VTE Plan VTE Prophylaxis Plan VTE Prophylaxis will be ordered: Yes Supervising Physician Co-Signing Physician Notes I have seen and examined the patient and have discussed the case with the provider above. I agree with the assessment and plan as stated.
[2022-09-12] MEDS: HEPARIN SOD 5,000 UNIT/0.5 ML VIAL SQ SCH (22:08)
[2022-09-12] MEDS: GABAPENTIN 100 MG CAP PO SCH (22:08)
[2022-09-13 01:41] LABS: Appearance Urine Clear (Clear); Bacteria Urine Automated 3+ (Negative); Bilirubin Urine Negative (Negative); Blood Urine 1+ (Negative); Color Urine Yellow; Glucose Urine UA 1+ (Negative); Ketones Urine Negative (Negative); Leukocyte Esterase Urine 1+ (Negative); Nitrite Urine Negative (Negative); Protein Urine Trace (Negative); RBC Urine Automated 0-4 /hpf (0-4); Specific Gravity Urine 1.016 (1.000-1.030); Urobilinogen Urine Negative (Negative); WBC Urine Automated >30 /hpf (0-5)
--- NOTE | 2022-09-13 07:35 | Cardiology Consultation ---
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 Telemetry revealing a single episode of nonsustained VT on admission, ? questionable episode of a pause- not available for review on tele. EKG showing NSR with 1st degree AVB and RBBB. Notable fatigue/weakness. PLAN: -Given conduction system disease and weakness will discontinue digoxin at this time. Digoxin is not considered first line treatment for PSVT, will transition to metoprolol succinate 12.5 mg daily. May need to ultimately increase to 25 mg daily pending telemetry findings. -Echo pending. Consider outpatient nuclear stress testing given weakness/fatigue and VT. -Agree with PT/OT evaluation Case discussed with Dr. Toussaint- will follow while inpatient. Supervising Physician Co-Signing Physician Notes I have reviewed the advance practitioner documentation and agree. I saw and evaluated the patient on the date of service referenced in the note and have performed a medically appropriate history and or exam. Will review the echo when it is available. History of Present Illness Reason for Consultation: Near syncope, nonsustained VT with 2 to 3-second pause. Requesting Physician: Anisha hospitaleleanor Attending Physician: Petey Alcantara MD History of Present Illness 77-year-old male initially presented to [facility] emergency department due to significant weakness and near syncope on 09/12/2022. While in the emergency department, physician noted a 5 beat run of VT at 18:05 on 09/12 and a pause, unknown duration, possibly 2 to 3 seconds per hospitalist team- not available on telemetry review. EKG: NSR, 1st degree AVB, RBBB Echo: PENDING* Head CT 09/12: Unremarkable, no acute intracranial abnormalities Chest x-ray/KUB: No acute processes of the chest, nonobstructive bowel gas pattern, moderate to extensive colonic fecal retention Labs: CBC stable, BMP WNL, HS trop negative (10.2). Dig level 1.0 Urine culture: Pending Upon entrance into the room patient resting in bed. Woke easily. No acute concerns. Continues to feel fatigue. Has not been out of bed to see if weakness persists. No chest pain. No GRIFFIN. Denies palpitations. No further episodes of palpitations. Denies orthopnea, PND, or lower extremity edema. Admits to poor fluid intake at times, appetite is good. Tele: SR 1st degree AVB, 70s Primary outpatient senior developer: Dr. Bishop Past medical history: Paroxysmal SVT, on digoxin Chart history of paroxysmal atrial fibrillation, not on anticoagulation Mild Aortic stenosis per echo 02/2022 Hypertension Hyperlipidemia Type 2 diabetes History of right hip fracture 01/2022 History of acute a calcinosis cholecystitis status postcholecystectomy with postop course complicated by hemorrhagic shock 02/2022 Chronic bladder outlet obstruction with recurrent UTI, follows with urology takes finasteride and tamsulosin Allergies Allergy/AdvReac Type Severity Reaction Status Date / Time oxycodone AdvReac lethargy Verified 09/12/22 18:54 Home Medications Medication Instructions Recorded Confirmed Type Echinacea-Welch Seal Liq 1 tsp PO DAILY 09/12/22 09/12/22 History acetaminophen 325 mg tablet 650 mg PO Q4 PRN Fever Or Pain 09/12/22 09/12/22 History (Tylenol) ammonium lactate 12 % topical cream 1 applic topical DAILY 09/12/22 09/12/22 History aspirin 81 mg chewable tablet 81 mg PO DAILY 09/12/22 09/12/22 History atorvastatin 20 mg tablet 20 mg PO DAILY 09/12/22 09/12/22 History digoxin 250 mcg (0.25 mg) tablet 250 mg PO DAILY 09/12/22 09/12/22 History finasteride 5 mg tablet 5 mg PO DAILY 09/12/22 09/12/22 History gabapentin 100 mg capsule 100 mg PO BID 09/12/22 09/12/22 History iron,carbonyl 65 mg-vitamin C 125 1 tab PO QAM 09/12/22 09/12/22 History mg tablet,delayed release (Vitron-C) lisinopril 20 1 tab PO DAILY 09/12/22 09/12/22 History mg-hydrochlorothiazide 25 mg tablet multivitamin 1 tab PO DAILY 09/12/22 09/12/22 History Patient History Medical History Closed fracture of right hip Diabetes Duodenal ulcer HLD (hyperlipidemia) HTN (hypertension) Near syncope Paroxysmal supraventricular tachycardia Recurrent UTI Weakness Surgical History History of total hip arthroplasty S/P cholecystectomy Family History Other Cancer Lung disease Social History Smoking Status: Former smoker Tobacco Type: Cigarettes Second Hand Exposure: No; Do You Dip or Chew Tobacco: Yes; Hx Alcohol Use: No Hx Substance Use: Yes Preferred Language: Macedonian Communication Ability: Impaired Dozer Operator Required: No Beliefs That Will Affect Care: None marital status: Current Living Situation: Family How many Children do You have: 2 Other Information That Helps Us Care for You: Yes Feels Safe at Home: Yes Assistive Devices: Walker Review of Systems Review of Systems: All systems reviewed & are unremarkable except as noted in HPI & below Physical Exam Constitutional: WD/WN, vitals as above no acute distress Eyes: PERRL, conjunctivae normal, anicteric sclerae Neck: normal visual inspection and trachea midline Respiratory: normal respiratory effort, lungs clear to auscultation no cough Auscultation: no crackles, no rales, no rhonchi and no wheezes Cardiovascular: RRR, no murmur, no edema Heart Sounds: normal S1, normal S2 and + murmur (+faint systolic murmur) Vessels: no JVD Extremities: no edema Gastrointestinal (Abdomen): normal bowel sounds, soft, nontender, no hepatosplenomegaly Skin: no rashes, warm and dry Psychiatric: A+Ox3, euthymic affect Results & Data Vital Signs (Past 12 Hours) Vital Signs Temp Pulse Pulse Pulse Resp BP BP 09/12/22 22:00 67 09/13/22 02:51 36.6 C 69 18 132/67 09/12/22 19:49 09/12/22 19:49 37.2 C 81 81 18 09/12/22 22:53 37.0 C 83 18 117/66 09/12/22 19:33 83 20 137/74 09/12/22 19:19 Pulse Ox O2 Del Method 09/12/22 22:00 09/13/22 02:51 99 Room Air 09/12/22 19:49 Room Air 09/12/22 19:49 97 Room Air 09/12/22 22:53 96 Room Air 09/12/22 19:33 96 Room Air 09/12/22 19:19 97 Room Air Laboratory Results Cardiac Enzymes 09/12/22 09/13/22 Range/Units 16:20 07:05 AST 36 31 (13-39) U/L Troponin I High Sens 10.2 (0-20) pg/ml Lipids 09/13/22 Range/Units 07:05 Triglycerides 74 (0-150) mg/dl Cholesterol 93 (0-200) mg/dl HDL Cholesterol 33 mg/dl Cholesterol/HDL Ratio 2.8 (0-5) CBC 09/12/22 09/13/22 Range/Units 16:20 07:05 WBC 13.41 H 10.22 (4.8-10.8) K/ul RBC 4.11 L 3.85 L (4.70-6.10) M/uL Hgb 12.3 L 11.6 L (14.0-18.0) g/dl Hct 36.5 L 34.2 L (42.0-52.0) % Plt Count 275 257 (130-400) K/uL Neut # (Auto) 11.10 H (1.40-6.50) K/uL Lymph # (Auto) 1.44 (1.2-3.4) K/uL [place] # (Auto) 0.75 H (0.11-0.59) K/uL Eos # (Auto) 0.03 (0-0.50) K/uL Baso # (Auto) 0.03 (0-0.2) K/uL Comprehensive Metabolic Panel 09/12/22 09/13/22 Range/Units 16:20 07:05 Sodium 138 139 (136-145) mmol/L Potassium 4.2 4.0 (3.5-5.1) mmol/L Chloride 102 105 (98-107) mmol/L Carbon Dioxide 30 29 (21-32) mmol/L BUN 28 H 20 (6-23) mg/dl Creatinine 0.88 0.62 (0.6-1.4) mg/dl Glucose 210 H 113 H (70-99(Fasting)) mg/dl Calcium 9.7 9.1 (8.6-10.3) mg/dl Direct Bilirubin TNP AST 36 31 (13-39) U/L ALT 30 26 (7-52) U/L Alkaline Phosphatase 193 H 159 H (34-104) U/L Total Protein 7.8 7.1 (6.0-8.3) gm/dl Albumin 3.9 3.5 (3.4-5.0) gm/dl Intake and Output 09/12/22 09/13/22 09/13/22 22:59 06:59 14:59 Intake Total 1000 / 1000 236 / 236 Output Total 1020 / 1020 Balance 1000 / -20 -1020 / -20 236 / 236 Intake: IV 1000 / 1000 Sodium Chloride 0.9% 1000ML 1, 1000 / 1000 000 ml @ 999 mls/hr IV .Q1H1M ONE Rx#:[id number] Oral 236 / 236 Output: Urine 1020 / 1020 Other: Other Intake Source sips Weight 97 kg Weight Measurement Method Built in [facility] Diagnostic Findings Echo 09/2022- inpatient PENDING Outpatient echo 02/2022 The examination is limited quality but adequate for evaluation of the referral indication. The qualitative LV ejection fraction is 55-59% (normal). The left ventricular wall motion is normal by limited analysis. All left ventricular segments are not visualized. Mild aortic valve stenosis is present.
[2022-09-13 07:36] LABS: Hematocrit (blood only) 34.2 % (42.0-52.0); Hemoglobin 11.6 g/dl (14.0-18.0); Mean Corpuscular Hemoglobin 30.1 pg (25.0-34.0); Mean Corpuscular Hgb Conc 33.9 g/dL (32.0-36.0); Mean Corpuscular Volume 88.8 fL (80.0-100.0); Mean Platelet Volume 10.1 fL (9.4-12.4); Platelet Count 257 K/uL (130-400); RDW Coefficient of Variation 13.2 % (11.5-14.5); RDW Standard Deviation 42.6 fL (36.4-46.3); Red Blood Count 3.85 M/uL (4.70-6.10); White Blood Count 10.22 K/ul (4.8-10.8)
[2022-09-13 07:58] LABS: Albumin Level 3.5 gm/dl (3.4-5.0); BUN Creatinine Ratio 32.3 (10-20); Bilirubin,Total 0.5 mg/dl (0.2-1.0); Calcium 9.1 mg/dl (8.6-10.3); Chol HDL Ratio 2.8 (0-5); Creatinine Clr Calc Pharmacy 117.4 ml/min; Est GFR (African American) 110.1 ml/min; Globulin 3.6 gm/dl (2.5-4.0); Phosphorus 3.1 mg/dl (2.5-4.9); Total Protein 7.1 gm/dl (6.0-8.3)
[2022-09-13] MEDS: HEPARIN SOD 5,000 UNIT/0.5 ML VIAL SQ SCH ×3 (08:18→19:58)
[2022-09-13] MEDS: ASCORBIC ACID 500 MG TAB PO SCH (08:19)
[2022-09-13] MEDS: GABAPENTIN 100 MG CAP PO SCH ×2 (08:19→19:55)
[2022-09-13] MEDS: ATORVASTATIN 20 MG TAB PO SCH (08:20)
[2022-09-13] MEDS: ASPIRIN 81 MG CHEW PO SCH (08:20)
[2022-09-13] MEDS: lisinopril 20 MG TAB PO SCH (08:21)
[2022-09-13] MEDS: FINASTERIDE 5 MG TAB PO SCH (08:22)
[2022-09-13] MEDS: MULTIVITAMIN TAB PO SCH (08:22)
[2022-09-13] MEDS: POLYETHYLENE (MIRALAX) 17 GM PACK PO SCH (08:23)
[2022-09-13] MEDS ORDERED: DIGOXIN 0.25 MG TAB PO SCH ×3 (09:00)
[2022-09-13] MEDS ORDERED: FERROUS SULFATE 325 MG TAB PO SCH (09:00)
--- NOTE | 2022-09-13 09:09 | Hospitalist Progress Note ---
Date of Service September 13, 2022 Assessment & Plan (1) Weakness: Plan: Presyncopal episode yesterday exacerbated by not having sleep the night before. PT/OT to evaluate. (2) Near syncope: Plan: as above. Possible digoxin side effect so cardiology switching to metoprolol at this point. Continue monitoring on telemetry. Head CT negative, no stroke symptoms present. No evidence of contributing infection or severe electrolyte disturbance. No ACS. (3) Paroxysmal supraventricular tachycardia: Plan: Stopping dig, start metoprolol. Monitor on telemetry for effect. (4) Dehydration: Plan: resolved and tolerating PO (5) Recurrent UTI: Plan: Patient denies this to be an issue for him. (6) HTN (hypertension): Plan: chronic, at goal. Cont lisinopril, hold HCTZ for now. (7) HLD (hyperlipidemia): Plan: chronic, stable. Cont atorvastatin per home regimen. (8) Insomnia: Plan: Start trial Lylemckenna darlene Offered that patient should see a psychologist regarding sleep hygiene and he declined (9) Constipation, chronic: Plan: Cont daily Miralax and added nightly dulcolax. Stop iron supplement and consider elimination diet as outpatient. (10) BPH (benign prostatic hyperplasia): Plan: chronic, stable. Cont medication therapy per home regimen. Heparin Full Code Disposition-to home in am pending PT/OT evaluation Norma Brar DO [facility] Hospitalist Admission and Anticipated Discharge Date Admission Date: September 12, 2022 Subjective 77 yo M presented with acute shortness of breath and presyncope at home while cooking beans yesterday. He has a h/o PSVT and was taken off his digoxin and put on metoprolol today he denies any SOB today and is feeling back to baseline He reports chronic constipation issues and insomnia that is severe and likley contributed to his episode yesterday. He states that he hadn't slept at all the night before and just kept trying to go on with the day. Review of Systems Review of Systems: All systems were reviewed and negative except as indicated on HPI above. Physical Exam Physical Exam: CONSTITUTIONAL: thin, vitals as above, generally well-appearing, NAD EYES: normal conjunctivae, no scleral icterus ENT: external ear and nose normal, MMM NECK: trachea midline RESPIRATORY: clear to auscultation bilaterally, no crackles, rales or wheezes, normal respiratory effort CARDIOVASCULAR: regular rate and rhythm, S1 and 2 heard without murmurs, gallops or rubs, no JVD, no peripheral edema CHEST: inspection of chest was normal GASTROINTESTINAL: soft, nontender, ND, no guarding MUSCULOSKELETAL: strength 5/5 throughout, head is normocephalic and atraumatic SKIN: warm and dry NEUROLOGIC: CN 2-12 grossly intact, no sensory deficit, normal cognition, normal speech, no tremor PSYCHIATRIC: alert cooperative and oriented to person, place and time. Euthymic mood, makes good eye contact, language grossly intact, recent and remote memory grossly intact. Results & Data Results & Data Vital Signs (Past 12 Hours) Vital Signs Temp Pulse Pulse Resp BP Pulse Ox O2 Del Method 09/13/22 07:26 36.8 C 68 17 139/62 99 Room Air 09/12/22 22:00 67 09/13/22 02:51 36.6 C 69 18 132/67 99 Room Air 09/12/22 22:53 37.0 C 83 18 117/66 96 Room Air Laboratory Results Short CBC 09/12/22 09/13/22 Range/Units 16:20 07:05 WBC 13.41 H 10.22 (4.8-10.8) K/ul Hgb 12.3 L 11.6 L (14.0-18.0) g/dl Hct 36.5 L 34.2 L (42.0-52.0) % Plt Count 275 257 (130-400) K/uL BMP 09/12/22 09/13/22 16:20 07:05 Sodium 138 139 Potassium 4.2 4.0 Chloride 102 105 Carbon Dioxide 30 29 BUN 28 H 20 Creatinine 0.88 0.62 Glucose 210 H 113 H Calcium 9.7 9.1 Liver Function 09/12/22 09/13/22 Range/Units 16:20 07:05 Total Bilirubin 0.6 0.5 (0.2-1.0) mg/dl Direct Bilirubin TNP AST 36 31 (13-39) U/L ALT 30 26 (7-52) U/L Alkaline Phosphatase 193 H 159 H (34-104) U/L Albumin 3.9 3.5 (3.4-5.0) gm/dl Urine 09/13/22 Range/Units Unknown Urine Color Yellow Urine Appearance Clear (Clear) Urine pH 7.0 (4.5-7.5) Ur Specific [place] 1.016 (1.000-1.030) Urine Protein Trace H (Negative) Urine Glucose (UA) 1+ H (Negative) Medications Administered Current Inpatient Medications Acetaminophen (Acetaminophen 325 Mg Tab) 650 mg PO Q4H PRN PRN Reason: Pain or Fever Stop: 10/12/22 18:22 Al Hydrox/Mg Hydrox/Simethicone (Aluminum/Magnesium Susp 30 Ml Udc) 15 ml PO Q4H PRN PRN Reason: Dyspepsia Stop: 10/12/22 18:22 Ascorbic Acid (Ascorbic Acid 500 Mg Tab) 250 mg PO QAM [facility] Stop: 10/13/22 08:59 Last Admin: 09/13/22 08:19 Dose: 250 mg Aspirin (Aspirin 81 Mg Chew) 81 mg PO DAILY [facility] Stop: 10/13/22 08:59 Last Admin: 09/13/22 08:20 Dose: 81 mg Atorvastatin Calcium (Atorvastatin 20 Mg Tab) 20 mg PO DAILY [facility] Stop: 10/13/22 08:59 Last Admin: 09/13/22 08:20 Dose: 20 mg Digoxin (Digoxin 0.25 Mg Tab) 0.25 mg PO DAILY [facility] Stop: 10/13/22 08:59 Ferrous Sulfate (Ferrous Sulfate 325 Mg Tab) [facility] Stop: 10/13/22 08:59 Last Admin: 09/13/22 08:22 Dose: 325 mg Finasteride (Finasteride 5 Mg Tab) 5 mg PO DAILY RADHA Stop: 10/13/22 08:59 Last Admin: 09/13/22 08:22 Dose: 5 mg Gabapentin (Gabapentin 100 Mg Cap) 100 mg PO BID [facility] Stop: 10/12/22 20:59 Last Admin: 09/13/22 08:19 Dose: 100 mg Heparin Sodium (Porcine) (Heparin Sod 5,000 Unit/0.5 Ml Vial) 5,000 units SQ Q12 [facility] Stop: 10/12/22 20:59 Last Admin: 09/13/22 08:18 Dose: 5,000 units Lisinopril (Lisinopril 20 Mg Tab) 20 mg PO QAM [facility] Stop: 10/13/22 08:59 Last Admin: 09/13/22 08:21 Dose: 20 mg Magnesium Hydroxide (Magnesium Hydroxide Susp 30 Ml Udc) 30 ml PO Q12H PRN PRN Reason: Constipation Stop: 10/12/22 18:22 Multivitamins (Multivitamin Tab) 1 tab PO DAILY RADHA Stop: 10/13/22 08:59 Last Admin: 09/13/22 08:22 Dose: 1 tab Ondansetron HCl (Ondansetron Inj 2 Mg/Ml 2 Ml Vial) 4 mg IV Q6H PRN PRN Reason: Nausea Stop: 10/12/22 18:22 Polyethylene Glycol (Polyethylene (Miralax) 17 Gm Pack) 17 gm PO DAILY [facility] Stop: 10/13/22 08:59 Last Admin: 09/13/22 08:23 Dose: 17 gm
--- NOTE | 2022-09-13 10:52 | Electrocardiogram Report ---
Test Reason : Blood Pressure : / mmHG Vent. Rate : 068 BPM Atrial Rate : 068 BPM P-R Int : 238 ms QRS Dur : 134 ms QT Int : 404 ms P-R-T Axes : 058 -10 042 degrees QTc Int : 429 ms Sinus rhythm with 1st degree A-V block Right bundle branch block Abnormal ECG When compared with ECG of 12-SEP-2022 15:58, No significant change was found Confirmed by Cole Warren ([id number]) on 09/13/2022 10:51:43 AM Referred By: REFERRED SELF Confirmed By:Cole Warren
[2022-09-13] MEDS: METOPROLOL SUCC 25MG EXT REL TAB PO SCH (11:06)
--- NOTE | 2022-09-13 12:07 | Electrocardiogram Report ---
Test Reason : Blood Pressure : / mmHG Vent. Rate : 071 BPM Atrial Rate : 071 BPM P-R Int : 228 ms QRS Dur : 138 ms QT Int : 406 ms P-R-T Axes : 070 -12 049 degrees QTc Int : 441 ms Sinus rhythm with 1st degree A-V block Right bundle branch block Abnormal ECG When compared with ECG of 17-APR-2022 11:14, No significant change was found Confirmed by Cole Warren ([id number]) on 09/13/2022 12:07:10 PM Referred By: REFERRED SELF Confirmed By:Cole Warren
--- NOTE | 2022-09-13 15:08 | Electrocardiogram Report ---
Test Reason : Blood Pressure : / mmHG Vent. Rate : 070 BPM Atrial Rate : 070 BPM P-R Int : 234 ms QRS Dur : 138 ms QT Int : 400 ms P-R-T Axes : 084 081 076 degrees QTc Int : 432 ms Sinus rhythm with 1st degree A-V block Right bundle branch block Borderline Criteria for Septal infarct , age undetermined Abnormal ECG When compared with ECG of 13-SEP-2022 05:57, Borderline Criteria for Septal infarct is now Present Confirmed by Cole Warren ([id number]) on 09/13/2022 3:07:47 PM Referred By: REFERRED SELF Confirmed By:Cole Warren
[2022-09-13] MEDS ORDERED: bisacodyL 5 MG TABEC PO SCH (21:00)
[2022-09-13] MEDS ORDERED: ZOLPIDEM TARTRATE 5 MG TAB PO SCH (21:00)
[2022-09-14 06:20] LABS: Calcium 9.1 mg/dl (8.6-10.3); Creatinine Clr Calc Pharmacy 102.5 ml/min; Est GFR (African American) 104.2 ml/min; Est GFR (Non-African American) 89.9 ml/min; Magnesium 1.8 mg/dl (1.7-2.4); Phosphorus 3.1 mg/dl (2.5-4.9); Potassium 4.1 mmol/L (3.5-5.1)
[2022-09-14 06:22] LABS: Hematocrit (blood only) 33.4 % (42.0-52.0); Hemoglobin 11.3 g/dl (14.0-18.0); Mean Corpuscular Hemoglobin 29.6 pg (25.0-34.0); Mean Corpuscular Hgb Conc 33.8 g/dL (32.0-36.0); Mean Corpuscular Volume 87.4 fL (80.0-100.0); Mean Platelet Volume 10.1 fL (9.4-12.4); Platelet Count 261 K/uL (130-400); RDW Standard Deviation 41.7 fL (36.4-46.3); Red Blood Count 3.82 M/uL (4.70-6.10); White Blood Count 8.17 K/ul (4.8-10.8)
--- NOTE | 2022-09-14 07:27 | Cardiology Progress Note ---
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 Telemetry revealing a single episode of nonsustained VT on admission, ? questionable episode of a pause- not available for review on tele. EKG showing NSR with 1st degree AVB and RBBB. Echo without WMA- borderline hyperdynamic LV estimated to be 65-70% Notable fatigue/weakness. PLAN: -Given conduction system disease and weakness Digoxin dc'd this admission. Continue metoprolol succinate 12.5 mg daily at discharge. Can titrate as an outpatient if needed. -Consider outpatient nuclear stress testing given weakness/fatigue and VT. -Recommend PT/OT evaluation given weakness, will defer to primary team. Case discussed with Dr. Toussaint- no further recommendations from a cardiology standpoint. Admission and Anticipated Discharge Date Admission Date: September 12, 2022 Supervising Physician Co-Signing Physician Notes I have reviewed the advance practitioner documentation and agree. I saw and evaluated the patient on the date of service referenced in the note and have performed a medically appropriate history and or exam. I believe the patient may be discharged per the hospitalist service. Subjective 77-year-old male initially presented to [facility] emergency department due to significant weakness and near syncope on 09/12/2022. While in the emergency department, physician noted a 5 beat run of VT at 18:05 on 09/12 and a pause, unknown duration, possibly 2 to 3 seconds per hospitalist team- not available on telemetry review. 09/13: Given conduction system disease and progressive weakness digoxin discontinued in favor of metoprolol succinate 12.5 mg daily. Echo: LVEF 65 to 70% no wall motion abnormalities. LV and RV cavity is small. Normal RV function. Normal left and right atrial size. Moderate aortic sclerosis without stenosis 09/14: Upon entrance into the room patient resting comfortably in bed. No acute concerns. No chest pain, SOB, or palpitations. Was able to ambulate to the bathroom with a walker. No lightheadedness or dizziness. Eager for discharge. Tele: SR 1st degree AVB, 60s. No VT or pauses overnight/this am. Review of Systems Review of Systems: All systems reviewed & are unremarkable except as noted in HPI & below Physical Exam Constitutional: WD/WN, vitals as above no acute distress Eyes: PERRL, conjunctivae normal, anicteric sclerae Neck: normal visual inspection and trachea midline Respiratory: normal respiratory effort, lungs clear to auscultation no cough Auscultation: no crackles, no rales, no rhonchi and no wheezes Cardiovascular: RRR, no murmur, no edema Heart Sounds: normal S1, normal S2 and + murmur (+faint systolic murmur) Vessels: no JVD Extremities: no edema Gastrointestinal (Abdomen): normal bowel sounds, soft, nontender, no hepatosplenomegaly Skin: no rashes, warm and dry Psychiatric: A+Ox3, euthymic affect Results & Data Vital Signs (Past 12 Hours) Vital Signs Temp Pulse Pulse Resp BP Pulse Ox O2 Del Method 09/14/22 07:19 72 09/14/22 03:45 36.5 C 61 18 122/67 98 Room Air 09/14/22 01:00 63 09/13/22 22:43 36.9 C 63 16 115/66 97 Room Air 09/13/22 19:33 36.8 C 67 16 111/63 98 Room Air Laboratory Results CBC 09/14/22 Range/Units 05:33 WBC 8.17 (4.8-10.8) K/ul RBC 3.82 L (4.70-6.10) M/uL Hgb 11.3 L (14.0-18.0) g/dl Hct 33.4 L (42.0-52.0) % Plt Count 261 (130-400) K/uL Comprehensive Metabolic Panel 09/14/22 Range/Units 05:33 Sodium 138 (136-145) mmol/L Potassium 4.1 (3.5-5.1) mmol/L Chloride 104 (98-107) mmol/L Carbon Dioxide 29 (21-32) mmol/L BUN 22 (6-23) mg/dl Creatinine 0.71 (0.6-1.4) mg/dl Glucose 121 H (70-99(Fasting)) mg/dl Calcium 9.1 (8.6-10.3) mg/dl Intake and Output 09/13/22 09/14/22 09/14/22 22:59 06:59 14:59 Intake Total 300 / 836 300 / 836 Output Total 901 / 2476 850 / 2476 Balance -601 / -1640 -550 / -1640 Intake: Oral 300 / 836 300 / 836 Output: Urine 900 / 2475 850 / 2475 # Bowel Movements Other: Weight 74.2 kg Weight Measurement Method Built in [facility]
[2022-09-14] MEDS: ASCORBIC ACID 500 MG TAB PO SCH (07:58)
[2022-09-14] MEDS: lisinopril 20 MG TAB PO SCH (07:58)
[2022-09-14] MEDS: HEPARIN SOD 5,000 UNIT/0.5 ML VIAL SQ SCH ×2 (07:59→08:04)
[2022-09-14] MEDS: METOPROLOL SUCC 25MG EXT REL TAB PO SCH (08:00)
[2022-09-14] MEDS: GABAPENTIN 100 MG CAP PO SCH (08:00)
[2022-09-14] MEDS: ASPIRIN 81 MG CHEW PO SCH (08:01)
[2022-09-14] MEDS: ATORVASTATIN 20 MG TAB PO SCH (08:01)
[2022-09-14] MEDS: MULTIVITAMIN TAB PO SCH (08:01)
[2022-09-14] MEDS: FINASTERIDE 5 MG TAB PO SCH (08:01)
[2022-09-14] MEDS: POLYETHYLENE (MIRALAX) 17 GM PACK PO SCH (08:01)
[2022-09-14] MEDS ORDERED: cefTRIAXone SODIUM 2,000 MG in DEXTROSE 5% 50 ML IV SCH (08:45)
[2022-09-14 09:00] LABS: Estimated Average Glucose 140 mg/dl; Hemoglobin A1C 6.5 % (4.5-5.6)
--- NOTE | 2022-09-14 13:20 | Discharge Summary ---
Date of Service September 14, 2022 Admission HPI Per Admitting Provider 77-year-old male w/ PMH of T2DM (A1c 4.9 on Mar, 2022 - not on DM meds for now per pt), paroxysmal SVT, HLD, right hip fracture 01/2022, acute acalculous cholecystitis s/p cholecystectomy with postoperative course complicated by hemorrhagic shock 02/2022, chronic bladder outlet obstruction with recurrent UTI who presented to the ED 09/12/22 from home after feeling fatigued, feeling weak and having a near syncopal episode while making baked beans at home with his . Patient had a recent admission 04/17/2022 to 04/21/2022 for generalized weakness and lethargy. Pt had weakness episode a/w dizziness while working in the kitchen, denies fall/chest pain/palpitations/cough/sore throat. Pt reports mild runny nose but reports it is chronic. Denies fall or LOC, was sat by his on chair. Pt reports appetite being good, feels generally constipated. Denies any pain or burning while passing urine. He reports progressive weakness. ED physician noted 5 beats run of V. Tach with a pause (not sure duration, maybe 2-3 secs) and hence decision to admit. Patient will be admitted for further evaluation and management. Please see A/P for further details. Meds were discussed with the patient, appears somewhat not sure regarding details of his current meds, reports he is not on any diabetic meds. supply tech tried to reach out pt's dtr twice to confirm the list but couldn't. Will need am provider to reach out to dtr for meds confirmation, currently will go with [facility] med list. Plans of care discussed with the patient. Admission Exam Per Admitting Provider GENERAL: Alert and oriented x3. NAD, on RA. Appears weak/frail. HEENT: No pallor, no icterus. Pupils equal, round and reactive to light. Oral mucosa moist. NECK: No JVD, no neck masses. HEART: S1 and S2 heard. Regular rate and rhythm. No murmur, no gallop. RESPIRATORY SYSTEM: Normal AP diameter. No accessory muscle use. No wheezing, no crackles. ABDOMEN: Soft, bowel sounds present, nontender, no distention. Scaphoid abdomen. CENTRAL NERVOUS SYSTEM: No facial droop. Speech is clear. Obeys simple commands. Moves extremities. EXTREMITIES: No edema, no erythema seen. Principal Diagnosis Weakness Near syncope History of paroxysmal SVT Dehydration UTI Discharge Exam GENERAL: Alert and oriented x3. NAD, on RA. HEENT: No pallor, no icterus. Pupils equal, round and reactive to light. Oral mucosa moist. NECK: No JVD, no neck masses. HEART: S1 and S2 heard. Regular rate and rhythm. No murmur, no gallop. RESPIRATORY SYSTEM: Normal AP diameter. No accessory muscle use. No wheezing, no crackles. ABDOMEN: Soft, bowel sounds present, nontender, no distention. Scaphoid abdomen. CENTRAL NERVOUS SYSTEM: No facial droop. Speech is clear. Obeys simple commands. Moves extremities. EXTREMITIES: No edema, no erythema seen. 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 PT/OT evaluated, pt declining rehab/snf/OP PT, agrees w/ Home w/ HH. CM to assit, CM aware. (2) Near syncope: as above. Possible digoxin side effect so cardiology switching to metoprolol at this point. Head CT negative, no stroke symptoms present. No evidence of contributing infection or severe electrolyte disturbance. No ACS. Pt to f/u w/ cardio in 2-4 weeks on DC. (3) Paroxysmal supraventricular tachycardia: Stopped dig, started metoprolol. Pt aware to f/u w/ cardio (4) Dehydration: resolved and tolerating PO (5) Recurrent UTI: Acute UTI: uti noted on U Cx, rocephing today, will DC on oral atb. (6) HTN (hypertension): chronic, at goal. Cont lisinopril, hold HCTZ for now. (7) HLD (hyperlipidemia): chronic, stable. Cont atorvastatin per home regimen. (8) Insomnia: Pt magnolia like to try melatonin. Offered that patient should see a psychologist regarding sleep hygiene and he declined (9) Constipation, chronic: c/w laxatives OTC, pt aware. (10) BPH (benign prostatic hyperplasia): Plan Following instructions were communicated to the patient at the point of discharge: Follow-up with your primary care physician within a week time and likely you will need labs CBC/CMP/magnesium/phosphorus. Physical therapy evaluated you and recommended that you go to a fpc, above was discussed with you and you declined fpc or rehab or outpatient physical therapy. We will try to set you up with home health on discharge. Continue with physical therapy at home. Cardiology evaluated you while in the hospital, your digoxin has been discontinued. Instead a new medication metoprolol has been added. You will need to follow-up with your cardiology in 2 to 4 weeks time upon discharge. Likely you will need outpatient nuclear stress testing. For your sleep, as discussed at the bedside you can try melatonin 5 mg tablet 3 hours prior to your bedtime. Avoid any mobile use or television use after taking melatonin. Take your medications as prescribed. Home Health Attestation I certify that this patient is under my care and that I, or a physicians floor covering printer assistant working with me, had a face to-face encounter that meets the home health [id number] encounter requirements with this patient. The encounter with the patient was in whole, or in part, for the following medical condition, which is the primary reason for home health care (list medical condition): I certify that, based on my findings, the following services are medically necessary home health services: My clinical findings support the need for the above services because: Further, I certify that my clinical findings support that this patient is homebound (i.e. absences from home require considerable and taxing effort and are for medical reasons or evangelical services or infrequently or of short duration when for other reasons) because: Certification for Home Health Services: Based on the above findings, I certify that this patient is confined to the home and needs intermittent long-term care, physical therapy and/or speech therapy or continues to need occupational therapy. The patient is under my care, and I have initiated the establishment of the plan of care. This patient will be followed by a physician who will periodically review the plan of care. Total Time Total Time Spent Total Time Spent (In Minutes): 45 Discharge Plan Discharge Items Patient Disposition: Home - Home Health Services Reason For Visit: WEAKNESS Discharge Diagnosis: Weakness Near syncope History of paroxysmal SVT Dehydration UTI Activity: As commented below Activity Comment: continue with home physical therapy. Non-emergency contact: Primary Care Provider Call non-emergency contact if: you have any medication questions Follow-up/Referrals: Jesse Real DO [Primary Care Provider] - (Date & Time 09/20/2022 11:00 AM Provider Jesse Real DO Department [facility] ) Sandra Scott CRNP [Nurse Practitioner] - (Date & Time 10/21/2022 3:00 PM Provider CHIVO Jackman Department Cardiology, [facility] ) Diet: Carb Consistent or DM2 and Heart Healthy Diet Texture: Easy to Chew Addtl Attending Provider Instructions: Follow-up with your primary care physician within a week time and likely you will need labs CBC/CMP/magnesium/phosphorus. Physical therapy evaluated you and recommended that you go to a fpc, above was discussed with you and you declined fpc or rehab or outpatient physical therapy. We will try to set you up with home health on discharge. Continue with physical therapy at home. Cardiology evaluated you while in the hospital, your digoxin has been discontinued. Instead a new medication metoprolol has been added. You will need to follow-up with your cardiology in 2 to 4 weeks time upon discharge. Likely you will need outpatient nuclear stress testing. For your sleep, as discussed at the bedside you can try melatonin 5 mg tablet 3 hours prior to your bedtime. Avoid any mobile use or television use after taking melatonin. Take your medications as prescribed. Pending Studies at Discharge: Yes ( Urine culture final results.) Stand-Alone Forms: My [facility] [employer], Smoking Cessation Medications and DC Order Prescriptions: New lisinopril 20 mg Tablet 20 mg PO QAM Qty: 30 0RF metoprolol succinate 25 mg Tablet Extended Release 24 Hr 12.5 mg PO QAM Qty: 15 0RF sennosides-docusate sodium [Senna with Docusate Sodium] 8.6-50 mg tablet 1 tab-cap PO DAILY Qty: 30 0RF melatonin 5 mg tablet 5 mg PO DAILY Qty: 30 0RF cefdinir 300 mg capsule 300 mg PO BID 5 Days Qty: 10 0RF Continued multivitamin Tablet 1 tab PO DAILY acetaminophen [Tylenol] 325 mg Tablet 650 mg PO Q4 PRN (Reason: Fever Or Pain) atorvastatin 20 mg tablet 20 mg PO DAILY aspirin 81 mg tablet,chewable 81 mg PO DAILY ammonium lactate 12 % cream 1 applic TOPICAL DAILY gabapentin 100 mg capsule 100 mg PO BID finasteride 5 mg tablet 5 mg PO DAILY Vitron-C 65 mg iron- 125 mg tablet,delayed release (DR/EC) 1 tab PO QAM Echinacea-Welch Seal Liq 1 tsp PO DAILY Discontinued digoxin 250 mcg (0.25 mg) tablet 250 mg PO DAILY lisinopril-hydrochlorothiazide 20-25 mg tablet 1 tab PO DAILY Discharge Orders: Discharge Order (Routine); Ordered 09/14/22 Ordered By: Petey Alcaraz/Other Patient Handouts: Type 2 Diabetes Admission Data Admit Date/Time: 09/12/22 18:23 Attending Provider: Petey Alcantara Admit Provider: Petey Alcantara Primary Care Provider: Jesse Real Other Providers: Petey Alcantara ; Sandra Motley ; Stanley Bishop ; Souleymane Fabian ; Chepe Duncan ; Alonso Walls ; Brooks Toussaint ; Jong Luna ; Callie Vasquez ; Ashley Sanchez ; Sandra Scott ; Dimas Negro ; Salvatore Ramirez
--- NOTE | 2022-09-19 12:54 | Coding Query ---
PRESENT ON ADMISSION QUERY To promote full compliance with coding requirements relating to pateint care, physician participation is requested in all cases of medical biller coder uncertainty. Please assist us with the question(s) below: Please place an X within the parenthesis (x). The following diagnosis listed in this patient's medical record require physician assistance to determine if they were present on admission (POA) or not. Please advise for each diagnosis whether it was present on admission, not present on admission, or if it was clinically undetermined. 1. ACUTE UTI (documented on Discharge Summary) (x ) Present On Admission ( ) Not Present On Admission ( ) Clinically Undetermined Thank you Randi Larson *Definition of the present on admission (POA)-Present on admission is defined as present at the time the order for inpatient admission occurs. Conditions that develop during an outpatient encounter prior to a written order for inpatient admission (including emergency department, observation, or outpatient surgery) are considered present on admission. MTDD
== END 2022-09-14 17:45 | disposition home health service (06) | DRG 312 ==
LOC: ED 15:48 → 2W 18:23 → SUATTDRO 18:23 → 2W 19:37

== ENCOUNTER 2023-01-17 00:36 | Inpatient (IN) ==
[2023-01-17] MEDS ORDERED: DOCUSATE SODIUM/SENNA 50/8.6MG TAB PO STA (00:53)
--- NOTE | 2023-01-17 00:55 | Emergency Department Note ---
Impression & Plan Sepsis, Fever, Constipation, Leukocytosis, Nausea, Tachycardia ED Provider Note NAME: VICTOR MANUEL HENDERSON AGE: 77 SEX: M : 1945 ARRIVES VIA: Walk-In INFORMANT: [Patient] ED PROVIDER(S): [Vishal Londono MD] CHIEF COMPLAINT: Constipation HISTORY OF PRESENT ILLNESS: The patient is a 77-year-old male who states that he has not had a decent bowel movement in several days. He feels stool in the rectum but cannot move his bowels. He did try to remove the stool with his finger but was unsuccessful. There has been no nausea or vomiting. No abdominal pain. He has not had fever. He has had issues with constipation in the past. PMHx/PSHx: See Below SOCIAL HISTORY: See Below. PHYSICAL EXAM: GENERAL: Patient is in no acute distress. HEENT: No acute trauma, normocephalic atraumatic, mucous membranes moist, no nasal congestion. NECK: No stridor, no adenopathy, no meningismus, trachea is midline. LUNGS: Clear to auscultation bilaterally, no wheeze, no rhonchi, breath sounds equal. Breath sounds are diminished bilaterally. HEART: Without murmurs gallops or rubs, regular rate and rhythm. ABDOMEN: Soft, nontender, bowel sounds positive, no peritonitis. EXTREMITIES: No cyanosis, mild bilateral pedal edema, full range of motion of all the joints without pain or difficulty, no signs for acute trauma. NEUROLOGIC: Oriented x 3, no acute motor or sensory deficits, no focal weakness. SKIN: No rash, no jaundice, no diaphoresis. Rectal: Hard stool noted in the rectal vault. Stool is brown in color. DIFFERENTIAL DIAGNOSIS: Constipation, bowel obstruction, urinary retention, diverticulitis or colitis, among others. EMERGENCY DEPARTMENT COURSE/PROCEDURES: Prior/Outside records reviewed: Previous discharge summary. Previous urology note. ECG per my interpretation: Indication was abdominal pain and nausea. The ECG shows what appears to be a sinus rhythm with a rate of 88. There is significant baseline artifact. There is no ST elevation, no PVCs. There is an incomplete right bundle branch block. QTc is 452. Critical Care Note: I have personally spent 53 minutes of critical care time in the direct management of this patient. This includes bedside care, interpr etation of diagnostic studies, and testing, discussion with consultants, patient, and family members, and other required patient management activities. This 53 minutes is in excess of all separately billable procedures. MEDICAL DECISION MAKING: There is a moderate leukocytosis, this could be consistent with infection of the stress of his current situation. No worrisome anemia. There was a normal platelet count. No renal failure or significant electrolyte abnormality. No concerning liver enzyme elevation. No evidence for pancreatitis. ECG shows a poor baseline but the rhythm appears sinus, no obvious ST elevation. Cardiac enzyme testing x 1 is not consistent with acute cardiac injury. Abdominal and pelvis CT shows constipation, there was no bowel obstruction or free air. Patient received a milk and molasses enema, he did have a fairly decent bowel movement but afterwards, felt nauseated. He did not feel well. He felt a lot of pain in the rectal area as if having the bowel movement caused rectal irritation. The patient was given a 500 cc saline bolus, he received oral Senokot. He was given IV Zofran. The patient later developed a fever here in the ED. He became tachycardic. Blood cultures were ordered, a lactic acid was ordered. He was ordered for a chest x-ray and a urinalysis. A Meza catheter was placed. He received an additional 1.5 cc saline bolus. In total, the patient received 2 L of IV saline, this would satisfy the 30 cc/kg saline bolus criteria recommended for sepsis. He was given IV cefepime as empiric antibiotic coverage. The patient's chest x-ray shows some chronic changes per my review. There is no pneumonia or free air. Lactic acid level returned high at 6. This lactic acid elevation is consistent with infection/sepsis. Urinalysis did not show findings of infection. In summary, the patient presented initially with what he thought was constipation, he was constipated on rectal exam. He began feeling poorly after having an enema induced bowel movement and became tachycardic and febrile. Additional workup was performed. Patient does meet criteria for sepsis. Admission is warranted. The source for the fever is currently unclear. Of note, a respiratory bio fire was ordered, the results are pending. DISPOSITION: Patient's presentation and findings warrant a hospital stay. Past Med/Surg History Medical History Closed fracture of right hip Diabetes Duodenal ulcer HLD (hyperlipidemia) HTN (hypertension) Near syncope Paroxysmal supraventricular tachycardia Recurrent UTI Weakness Surgical History History of total hip arthroplasty S/P cholecystectomy Family History Other Cancer Lung disease Social History Smoking Status: Never smoker Tobacco Type: Cigarettes Second Hand Exposure: No; Do You Dip or Chew Tobacco: Yes; Hx Alcohol Use: No Hx Substance Use: Yes Preferred Language: Lao Communication Ability: Effective Assistant To The [employer] Required: No Beliefs That Will Affect Care: None marital status: Current Living Situation: Family How many Children do You have: 2 Feels Safe at Home: Yes Assistive Devices: Walker Allergies Allergies Allergy/AdvReac Type Severity Reaction Status Date / Time No Known Allergies Allergy Verified 01/17/23 01:26 Home Meds Home Medications Medication Instructions Recorded Confirmed acetaminophen 325 mg tablet 650 mg PO Q4 PRN Fever Or Pain 09/12/22 01/17/23 (Tylenol) ammonium lactate 12 % topical cream 1 applic topical DAILY 09/12/22 01/17/23 aspirin 81 mg chewable tablet 81 mg PO DAILY 09/12/22 01/17/23 atorvastatin 20 mg tablet 20 mg PO DAILY 09/12/22 01/17/23 finasteride 5 mg tablet 5 mg PO DAILY 09/12/22 01/17/23 gabapentin 100 mg capsule 100 mg PO BID 09/12/22 01/17/23 alpha lipoic acid 300 mg capsule 600 mg PO QAM 01/17/23 01/17/23 furosemide 20 mg tablet 20 mg PO DAILY PRN Edema 01/17/23 01/17/23 mirtazapine 15 mg tablet 15 mg PO HS 01/17/23 01/17/23 nut.tx.gluc.intol,lac-free,soy 1 ea PO BIDM 01/17/23 01/17/23 (Glucerna Hunger Smart oral liquid) polyethylene glycol 3350 17 17 g PO DAILY PRN Constipation 01/17/23 01/17/23 gram/dose oral powder (Miralax) Previous Rx's Medication Instructions Recorded lisinopril 20 mg tablet 20 mg PO QAM #30 tabs 09/14/22 metoprolol succinate 25 mg 12.5 mg PO QAM #15 tabs 09/14/22 tablet,extended release 24 hr sennosides 8.6 mg-docusate sodium 1 tab-cap PO DAILY #30 tabs 09/14/22 50 mg tablet (Senna with Docusate Sodium) Results & Data (ED) Vital Signs Vital Signs - 24 hr 01/17/23 00:40 01/17/23 03:45 01/17/23 04:58 Temperature 36.8 C 38.0 C H Temperature Source Temporal Artery Scan Oral Pulse Rate 84 Pulse Rate [Finger] 92 H 114 H Pulse Strength [Finger] Normal Respiratory Rate 17 18 24 Respiratory Effort / Characteristics Non-Labored Non-Labored Respiratory Depth Normal Normal Respiratory Pattern Regular Regular Blood Pressure 176/77 H Blood Pressure [Right Arm] 94/76 L 135/75 Blood Pressure Mean 110 Blood Pressure Mean [Right Arm] 82 95 Blood Pressure Position [Right Arm] Lying Pulse Oximetry 100 96 Oxygen Delivery Method Room Air Room Air Sepsis Recent Fever Within 48 Hours No Sepsis New/Unexplained Change in Mental Status N/A Sepsis Action Taken by Nursing No Action Required 01/17/23 06:00 01/17/23 06:16 Temperature 37.7 C H Temperature Source Oral Pulse Rate Pulse Rate [Finger] 99 H Pulse Strength [Finger] Respiratory Rate 20 Respiratory Effort / Characteristics Non-Labored Respiratory Depth Normal Respiratory Pattern Regular Blood Pressure Blood Pressure [Right Arm] 108/61 Blood Pressure Mean Blood Pressure Mean [Right Arm] 76 Blood Pressure Position [Right Arm] Pulse Oximetry 98 Oxygen Delivery Method Room Air Sepsis Recent Fever Within 48 Hours Sepsis New/Unexplained Change in Mental Status Sepsis Action Taken by [place] Medications Current Medication List: was personally reviewed by me Laboratory Data Attestation: I reviewed the patient's lab results. 01/17/23 03:45 01/17/23 03:45 Lab Results 01/17/23 01/17/23 01/17/23 Range/Units 03:45 03:45 05:24 WBC 16.37 H (4.8-10.8) K/ul RBC 4.44 L (4.70-6.10) M/uL Hgb 13.4 L (14.0-18.0) g/dl Hct 39.4 L (42.0-52.0) % MCV 88.7 (80.0-100.0) fL MCH 30.2 (25.0-34.0) pg MCHC 34.0 (32.0-36.0) g/dL RDW Std Deviation 44.1 (36.4-46.3) fL RDW Coeff of [place]ley[place] 13.5 (11.5-14.5) % Plt Count 343 (130-400) K/uL MPV 9.9 (9.4-12.4) fL Immature Gran % (Auto) 0.4 % Neut % (Auto) 84.3 % Lymph % (Auto) 13.3 % [place] % (Auto) 1.6 % Eos % (Auto) 0.2 % Baso % (Auto) 0.2 % Neut # (Auto) 13.81 H (1.40-6.50) K/uL Lymph # (Auto) 2.18 (1.2-3.4) K/uL [place] # (Auto) 0.26 (0.11-0.59) K/uL Eos # (Auto) 0.03 (0-0.50) K/uL Baso # (Auto) 0.03 (0-0.2) K/uL Immature Gran # (Auto) 0.06 (0.01-0.20) K/uL Sodium 139 (136-145) mmol/L Potassium TNP Chloride 104 (98-107) mmol/L Carbon Dioxide 24 (21-32) mmol/L Anion Gap 11 (3-11) BUN 20 (6-23) mg/dl Creatinine 0.99 (0.6-1.4) mg/dl Est Cr Clr Drug Dosing 53.1 ml/min Est GFR ( Amer) 84.2 ml/min Est GFR (Non-Af Amer) 72.6 ml/min BUN/Creatinine Ratio 20.2 H (10-20) Glucose 171 H (70-99(Fasting)) mg/dl Lactate 6.0 H* (0.4-2.0) mmol/L Calcium 9.6 (8.6-10.3) mg/dl Magnesium 2.2 (1.7-2.4) mg/dl Total Bilirubin 0.5 (0.2-1.0) mg/dl AST TNP ALT 18 (7-52) U/L Alkaline Phosphatase 129 H (34-104) U/L Troponin I High Sens 10.6 (0-20) pg/ml Total Protein 8.0 (6.0-8.3) gm/dl Albumin 3.7 (3.4-5.0) gm/dl Globulin 4.3 H (2.5-4.0) gm/dl Albumin/Globulin Ratio 0.9 (0.9-2) Lipase 49 (11-82) U/L Urine Color Urine Appearance (Clear) Urine pH (4.5-7.5) Ur Specific [place] (1.000-1.030) Urine Protein (Negative) Urine Glucose (UA) (Negative) Urine Ketones (Negative) Urine Blood (Negative) Urine Nitrite (Negative) Urine Bilirubin (Negative) Urine Urobilinogen (Negative) Ur Leukocyte Esterase (Negative) 01/17/23 Range/Units 05:45 WBC (4.8-10.8) K/ul RBC (4.70-6.10) M/uL Hgb (14.0-18.0) g/dl Hct (42.0-52.0) % MCV (80.0-100.0) fL MCH (25.0-34.0) pg MCHC (32.0-36.0) g/dL RDW Std Deviation (36.4-46.3) fL RDW Coeff of [place]leyda (11.5-14.5) % Plt Count (130-400) K/uL MPV (9.4-12.4) fL Immature Gran % (Auto) % Neut % (Auto) % Lymph % (Auto) % [place] % (Auto) % Eos % (Auto) % Baso % (Auto) % Neut # (Auto) (1.40-6.50) K/uL Lymph # (Auto) (1.2-3.4) K/uL [place] # (Auto) (0.11-0.59) K/uL Eos # (Auto) (0-0.50) K/uL Baso # (Auto) (0-0.2) K/uL Immature Gran # (Auto) (0.01-0.20) K/uL Sodium (136-145) mmol/L Potassium Chloride (98-107) mmol/L Carbon Dioxide (21-32) mmol/L Anion Gap (3-11) BUN (6-23) mg/dl Creatinine (0.6-1.4) mg/dl Est Cr Clr Drug Dosing ml/min Est GFR ( Amer) ml/min Est GFR (Non-Af Amer) ml/min BUN/Creatinine Ratio (10-20) Glucose (70-99(Fasting)) mg/dl Lactate (0.4-2.0) mmol/L Calcium (8.6-10.3) mg/dl Magnesium (1.7-2.4) mg/dl Total Bilirubin (0.2-1.0) mg/dl AST ALT (7-52) U/L Alkaline Phosphatase (34-104) U/L Troponin I High Sens (0-20) pg/ml Total Protein (6.0-8.3) gm/dl Albumin (3.4-5.0) gm/dl Globulin (2.5-4.0) gm/dl Albumin/Globulin Ratio (0.9-2) Lipase (11-82) U/L Urine Color Yellow Urine Appearance Clear (Clear) Urine pH 6.0 (4.5-7.5) Ur Specific [place] 1.017 (1.000-1.030) Urine Protein Negative (Negative) Urine Glucose (UA) Negative (Negative) Urine Ketones Negative (Negative) Urine Blood Negative (Negative) Urine Nitrite Negative (Negative) Urine Bilirubin Negative (Negative) Urine Urobilinogen Negative (Negative) Ur Leukocyte Esterase Negative (Negative) Administered Medications Discontinued Medications Sodium Chloride (Nss) 500 mls @ 999 mls/hr IV .Q31M STA Stop: 01/17/23 03:57 Last Infusion: 01/17/23 04:30 Dose: 0 mls/hr Documented By: Admin: 01/17/23 03:47 Dose: 999 mls/hr Documented By: JUDAH Sodium Chloride (Nss 1000ml) 500 mls @ 999 mls/hr IV .Q31M ONE Stop: 01/17/23 05:28 Last Infusion: 01/17/23 06:21 Dose: 0 mls/hr Documented By: Admin: 01/17/23 05:49 Dose: 999 mls/hr Documented By: LEOLA Cefepime HCl (Maxipime) 2,000 mg in 20 mls @ 5 mls/min IV NOW STA; Protocol Stop: 01/17/23 05:01 Last Admin: 01/17/23 05:49 Dose: 5 mls/min Documented By: LEOLA Acetaminophen (Ofirmev) 1,000 mg in 100 mls @ 400 mls/hr IV NOW STA Stop: 01/17/23 05:14 Last Infusion: 01/17/23 05:43 Dose: 0 mls/hr Documented By: Admin: 01/17/23 05:26 Dose: 400 mls/hr Documented By: LEOLA Sodium Chloride (Nss 1000ml) 500 mls @ 999 mls/hr IV .Q31M ONE Stop: 01/17/23 06:07 Last Infusion: 01/17/23 06:21 Dose: 0 mls/hr Documented By: Admin: 01/17/23 05:49 Dose: 999 mls/hr Documented By: LEOLA Sodium Chloride (Nss 1000ml) 500 mls @ 999 mls/hr IV .Q31M ONE Stop: 01/17/23 06:25 Last Admin: 01/17/23 06:01 Dose: 999 mls/hr Documented By: LEOLA Ioversol (Optiray 350 500ml) 100 ml IV ONCE ONE Stop: 01/17/23 04:46 Last Admin: 01/17/23 04:45 Dose: 93 ml Documented By: JEREMY Ondansetron HCl (Ondansetron Inj 2 Mg/Ml 2 Ml Vial) 4 mg IV NOW STA Stop: 01/17/23 03:28 Last Admin: 01/17/23 03:47 Dose: 4 mg Documented By: JUDAH Senna/Docusate Sodium (Docusate Sodium/Senna 50/8.6mg Tab) 2 tab PO NOW STA Stop: 01/17/23 00:54 Last Admin: 01/17/23 01:00 Dose: 2 tab Documented By: JUDAH Imaging Data My Impression: Chest x-ray: Per my review there is some chronic change, there is no pneumonia or pneumothorax. Radiologist's Impression: Abdomen/Pelvis CT 01/17/23 03:27 Exam(s): CT ABDOMEN + PELVIS With Contrast IV Amt: 93 ML OPTIRAY 350 EXAM: CT Abdomen and Pelvis With Intravenous Contrast CLINICAL HISTORY: Reason for exam: abd pain, poss obstruction. TECHNIQUE: Axial computed tomography images of the abdomen and pelvis with intravenous contrast. Automated exposure control was utilized for the study. A dose lowering technique was utilized adhering to the principles of ALARA. CONTRAST: Patient received 93 ML OPTIRAY 350 of IV contrast COMPARISON: October 18, 2022 FINDINGS: Lung bases: Mild scattered linear scarring in the lung bases. ABDOMEN: Liver: Unremarkable. No mass. Gallbladder and bile ducts: Slight biliary duct prominence postcholecystectomy. No choledocholithiasis is seen. Pancreas: Unremarkable. No mass. No ductal dilation. Spleen: Unremarkable. No splenomegaly. Adrenals: Unremarkable. No mass. Kidneys and ureters: There is a 7.3 cm simple cyst in the lower pole the right kidney. No follow-up is required. No hydronephrosis. Stomach and bowel: There is a large amount of stool throughout the transverse, left, and sigmoid colon measuring between 7 and 8 cm. The rectum measures 6.5 cm. Consider constipation. No mucosal thickening. PELVIS: Appendix: The appendix is normal. Bladder: The urinary bladder is fully distended but nondilated. Reproductive: Unremarkable as visualized. ABDOMEN and PELVIS: Intraperitoneal space: Unremarkable. No free air. No significant fluid collection. Bones/joints: Mild degenerative changes throughout the spine. No acute fracture or subluxation is seen. Soft tissues: Unremarkable. Vasculature: The abdominal aorta is heavily calcified but nondilated. Lymph nodes: Unremarkable. No enlarged lymph nodes. IMPRESSION: There is a large amount of stool throughout the transverse, left, and sigmoid colon measuring between 7 and 8 cm. The rectum measures 6.5 cm. Consider constipation. No pneumoperitoneum, for fluid, or abscess is seen. Electronically signed by: Aidan Luis MD 01/17/23 05:32 AM Discharge Plan Visit Data Chief Complaint: Constipation Stated Complaint: EXTREMELY CONSTIPATED ED Provider: Vishal Londono Discharge Problem: Sepsis, Fever, Constipation, Leukocytosis, Nausea, Tachycardia Patient Disposition: Admitted As Inpatient Condition: Fair Forms Stand Alone Forms: My [facility], Virtual Emergency Department, Important Visit Information Prescriptions Prescriptions: No Action acetaminophen [Tylenol] 325 mg Tablet 650 mg PO Q4 PRN (Reason: Fever Or Pain) atorvastatin 20 mg tablet 20 mg PO DAILY aspirin 81 mg tablet,chewable 81 mg PO DAILY ammonium lactate 12 % cream 1 applic TOPICAL DAILY Rx Instructions: APPLY TO FEET gabapentin 100 mg capsule 100 mg PO BID finasteride 5 mg tablet 5 mg PO DAILY lisinopril 20 mg Tablet 20 mg PO QAM Qty: 30 0RF metoprolol succinate 25 mg Tablet Extended Release 24 Hr 12.5 mg PO QAM Qty: 15 0RF sennosides-docusate sodium [Senna with Docusate Sodium] 8.6-50 mg tablet 1 tab-cap PO DAILY Qty: 30 0RF furosemide 20 mg tablet 20 mg PO DAILY PRN (Reason: Edema) Rx Instructions: PER [facility]--TAKES ALMOST EVERY DAY. mirtazapine 15 mg tablet 15 mg PO HS polyethylene glycol 3350 [Miralax] 17 gram/dose Powder 17 g PO DAILY PRN (Reason: Constipation) Glucerna Hunger Smart Liquid 1 ea PO BIDM alpha lipoic acid 300 mg Capsule 600 mg PO QAM Referrals Referrals: Jesse Real DO [Primary Care Provider] - Sepsis Qualifiers: Sepsis type: sepsis due to unspecified organism Sepsis acute organ dysfunction status: without acute organ dysfunction Qualified Code(s): A41.9 - Sepsis, unspecified organism Fever Qualifiers: Fever type: unspecified Qualified Code(s): R50.9 - Fever, unspecified Constipation Qualifiers: Constipation type: unspecified constipation type Qualified Code(s): K59.00 - Constipation, unspecified Leukocytosis Qualifiers: Leukocytosis type: unspecified Qualified Code(s): D72.829 - Elevated white blood cell count, unspecified
[2023-01-17] MEDS ORDERED: SODIUM CHLORIDE 0.9% 500 ML IV STA (03:27)
[2023-01-17] MEDS ORDERED: ONDANSETRON INJ 2 MG/ML 2 ML VIAL IV STA (03:27)
[2023-01-17 04:03] LABS: Basophils # (auto) 0.03 K/uL (0-0.2); Basophils % (auto) 0.2 %; Eosinophils # (auto) 0.03 K/uL (0-0.50); Eosinophils % (auto) 0.2 %; Hematocrit (blood only) 39.4 % (42.0-52.0); Hemoglobin 13.4 g/dl (14.0-18.0); Immature Granulocytes # (auto) 0.06 K/uL (0.01-0.20); Immature Granulocytes % (auto) 0.4 %; Lymphocytes # (auto) 2.18 K/uL (1.2-3.4); Lymphocytes % (auto) 13.3 %; Mean Corpuscular Hemoglobin 30.2 pg (25.0-34.0); Mean Corpuscular Volume 88.7 fL (80.0-100.0); Mean Platelet Volume 9.9 fL (9.4-12.4); Monocytes # (auto) 0.26 K/uL (0.11-0.59); Monocytes % (auto) 1.6 %; Neutrophils # (auto) 13.81 K/uL (1.40-6.50); Neutrophils % (auto) 84.3 %; Platelet Count 343 K/uL (130-400); RDW Coefficient of Variation 13.5 % (11.5-14.5); RDW Standard Deviation 44.1 fL (36.4-46.3); Red Blood Count 4.44 M/uL (4.70-6.10); White Blood Count 16.37 K/ul (4.8-10.8)
[2023-01-17 04:32] LABS: Alanine Aminotransferase 18 U/L (7-52); Albumin Globulin Ratio 0.9 (0.9-2); Albumin Level 3.7 gm/dl (3.4-5.0); Alkaline Phosphatase 129 U/L (34-104); Anion Gap 11 (3-11); BUN Creatinine Ratio 20.2 (10-20); Bilirubin,Total 0.5 mg/dl (0.2-1.0); Blood Urea Nitrogen 20 mg/dl (6-23); Calcium 9.6 mg/dl (8.6-10.3); Carbon Dioxide 24 mmol/L (21-32); Chloride 104 mmol/L (98-107); Creatinine Clr Calc Pharmacy 53.1 ml/min; Est GFR (African American) 84.2 ml/min; Est GFR (Non-African American) 72.6 ml/min; Globulin 4.3 gm/dl (2.5-4.0); Glucose 171 mg/dl (70-99(Fasting)); Lipase 49 U/L (11-82); Magnesium 2.2 mg/dl (1.7-2.4); Sodium 139 mmol/L (136-145); Troponin I High Sensitivity 10.6 pg/ml (0-20)
[2023-01-17] MEDS ORDERED: OPTIRAY 350 500ml IV ONE (04:45)
[2023-01-17] MEDS ORDERED: CEFEPIME 2,000 MG/20 ML VIAL IV STA (04:58)
[2023-01-17] MEDS ORDERED: SODIUM CHLORIDE 0.9% 1000ML 500 ML IV ONE ×3 (04:58→05:55)
[2023-01-17] MEDS ORDERED: ACETAMINOPHEN 1,000 MG/100 ML VIAL IV STA (05:00)
--- NOTE | 2023-01-17 05:33 | CT Scan Report ---
Exam(s): CT ABDOMEN + PELVIS With Contrast IV Amt: 93 ML OPTIRAY 350 EXAM: CT Abdomen and Pelvis With Intravenous Contrast CLINICAL HISTORY: Reason for exam: abd pain, poss obstruction. TECHNIQUE: Axial computed tomography images of the abdomen and pelvis with intravenous contrast. Automated exposure control was utilized for the study. A dose lowering technique was utilized adhering to the principles of ALARA. CONTRAST: Patient received 93 ML OPTIRAY 350 of IV contrast COMPARISON: October 18, 2022 FINDINGS: Lung bases: Mild scattered linear scarring in the lung bases. ABDOMEN: Liver: Unremarkable. No mass. Gallbladder and bile ducts: Slight biliary duct prominence postcholecystectomy. No choledocholithiasis is seen. Pancreas: Unremarkable. No mass. No ductal dilation. Spleen: Unremarkable. No splenomegaly. Adrenals: Unremarkable. No mass. Kidneys and ureters: There is a 7.3 cm simple cyst in the lower pole the right kidney. No follow-up is required. No hydronephrosis. Stomach and bowel: There is a large amount of stool throughout the transverse, left, and sigmoid colon measuring between 7 and 8 cm. The rectum measures 6.5 cm. Consider constipation. No mucosal thickening. PELVIS: Appendix: The appendix is normal. Bladder: The urinary bladder is fully distended but nondilated. Reproductive: Unremarkable as visualized. ABDOMEN and PELVIS: Intraperitoneal space: Unremarkable. No free air. No significant fluid collection. Bones/joints: Mild degenerative changes throughout the spine. No acute fracture or subluxation is seen. Soft tissues: Unremarkable. Vasculature: The abdominal aorta is heavily calcified but nondilated. Lymph nodes: Unremarkable. No enlarged lymph nodes. IMPRESSION: There is a large amount of stool throughout the transverse, left, and sigmoid colon measuring between 7 and 8 cm. The rectum measures 6.5 cm. Consider constipation. No pneumoperitoneum, for fluid, or abscess is seen. Electronically signed by: Aidan Luis MD 01/17/23 05:32 AM
[2023-01-17 06:19] LABS: Appearance Urine Clear (Clear); Bilirubin Urine Negative (Negative); Blood Urine Negative (Negative); Color Urine Yellow; Glucose Urine UA Negative (Negative); Ketones Urine Negative (Negative); Leukocyte Esterase Urine Negative (Negative); Nitrite Urine Negative (Negative); Protein Urine Negative (Negative); Specific Gravity Urine 1.017 (1.000-1.030); Urobilinogen Urine Negative (Negative)
[2023-01-17] MEDS ORDERED: VANCOMYCIN CONSULT ACTIVE PRN (06:42)
[2023-01-17] MEDS ORDERED: VANCOMYCIN HCL 1,250 MG in SODIUM CHLORIDE 0.9% 250 ML IV STA (06:45)
[2023-01-17] MEDS ORDERED: KETOROLAC 30 MG/ML VIAL ONE (07:16)
[2023-01-17] MEDS ORDERED: KETOROLAC 30 MG/ML VIAL IV STA (07:17)
[2023-01-17 07:18] LABS: Potassium 4.1 mmol/L (3.5-5.1)
[2023-01-17 07:33] LABS: Adenovirus PCR Not Detected (NotDetected); Bordetella parapertussis PCR Not Detected (NotDetected); Bordetella pertussis PCR Not Detected (NotDetected); Chlamydia pneumoniae PCR Not Detected (NotDetected); Coronavirus 229E PCR Not Detected (NotDetected); Coronavirus CoV-2 (COVID19)PCR Not Detected (NotDetected); Coronavirus HKU1 PCR Not Detected (NotDetected); Coronavirus NL63 PCR Not Detected (NotDetected); Coronavirus OC43PCR Not Detected (NotDetected); Human Metapneumovirus PCR Not Detected (NotDetected); Influenza A PCR Not Detected (NotDetected); Influenza B PCR Not Detected (NotDetected); Mycoplasma pneumoniae PCR Not Detected (NotDetected); Parainfluenza Virus 1 PCR Not Detected (NotDetected); Parainfluenza Virus 2 PCR Not Detected (NotDetected); Parainfluenza Virus 3 PCR Not Detected (NotDetected); Parainfluenza Virus 4 PCR Not Detected (NotDetected); Respiratory Syncytial VirusPCR Not Detected (NotDetected); Rhinovirus/Enterovirus PCR Not Detected (NotDetected)
--- NOTE | 2023-01-17 07:33 | XRay Report ---
SINGLE VIEW CHEST CLINICAL HISTORY: Fever FINDINGS: An AP, portable, upright chest radiograph is compared to study dated 09/12/2022. The heart is enlarged noting atherosclerotic calcification of the thoracic aorta. The pulmonary vasculature is no ncongested. There is chronic elevation of the left hemidiaphragm with bibasilar scarring/atelectasis. Scattered calcified granulomas are unchanged. No airspace consolidation or large pleural effusion is identified. No pneumothorax is seen. The skeletal structures are osteopenic. The bony thorax is cedric sly intact. IMPRESSION: No acute cardiopulmonary abnormality. ACT 112: Negative or not required by law. Electronically signed by: Vishal Hardin M.D. 01/17/2023 7:31 AM
--- NOTE | 2023-01-17 07:46 | History & Physical Report ---
Date of Service January 17, 2023 Assessment & Plan (1) Severe sepsis: Plan: 77-year-old male past medical significant for type 2 diabetes, hyperlipidemia, hypertension, CVA, paroxysmal SVT, CAD, mild protein calorie moderation, history of duodenal ulcer hemorrhage, right renal mass, bladder outlet obstruction, history of complicated UTI, history of pressure injury of buttock stage I, history of A-fib, history of memory impairment, depression who lives at home wit h his was brought in by because of constipation. In the ER after enema he had 2 large bowel movements then complained of abdominal pain. CT scan was okay. But then developed fever and tachycardia. Abdominal pain is better now. Labs showed white count of 16 and lactic acid of 6. Received aggressive fluids and cefepime. S/p Meza. UA came back negative. Respiratory bio fire negative. Repeat lactic is 3.7. Creatinine okay. LFTs okay except for alkaline phos 129. We will continue with IV fluid normal saline at 200 mill per hour for now and if hemodynamics stable can cut back on the fluids. Starting on IV Vanco and Zosyn. Will follow response. We will follow the cultures. Abdominal pain is better now. If needed can repeat the CT abdomen pelvis Hypertension Holding the blood pressure medication lisinopril metoprolol succinate for now We will follow the blood pressures Bladder outlet obstruction with recurrent UTI Continue Proscar Follows with urology Hyperlipidemia on statin Depression on Remeron History of paroxysmal SVT In September 2022 admission digoxin was discontinued due to weakness and placed on metoprolol succinate which is on hold for now Chart history of paroxysmal fibrillation not on anticoagulation Iron deficiency anemia Hemoglobin 13.4 today Type 2 diabetes Not on meds Placed on sliding scale Follow HbA1c levels DVT prophylaxis Lovenox Disposition telemetry floor Full code as per discussion with the patient History of Present Illness Chief Complaint: Severe sepsis Primary Care Provider: Jesse Real DO 77-year-old male past medical significant for type 2 diabetes, hyperlipidemia, hypertension, CVA, paroxysmal SVT, CAD, mild protein calorie moderation, history of duodenal ulcer hemorrhage, right renal mass, bladder outlet obstruction, history of complicated UTI, history of pressure injury of buttock stage I, history of A-fib, history of memory impairment, depression who lives at home with his was brought in by because of constipation. Patient states has history of constipation. In the ER after enema he had 2 large bowel movements plan to discharge him when he complained of abdominal pain. Because of abdominal pain CAT scan of the abdomen pelvis was done. After coming from CAT scan patient complained of weakness not feeling well and was tachycardic and was spiking temperatures. Labs were drawn which showed elevated white count and lactic acid of 6. Patient patient is to UTI but UA came back negative. His blood pressure is okay received aggressive fluids and cefepime. Denies any headache. No blurred visions. Denies any cough. Currently no runny nose. No sore throat. No chest pain or shortness of breath. No nausea or vomiting. Currently abdominal pain is improved. S/p Meza catheter in the ER. 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 Social history . Quit smoking in 1986 smoked 2.5 packs a day for 22 years. Quit alcohol 1980. No drug use. Family history father of lung cancer age 47 Allergies Allergy/AdvReac Type Severity Reaction Status Date / Time No Known Allergies Allergy Verified 01/17/23 01:26 Home Medications Medication Instructions Recorded Confirmed Type acetaminophen 325 mg tablet 650 mg PO Q4 PRN Fever Or Pain 09/12/22 01/17/23 History (Tylenol) ammonium lactate 12 % topical cream 1 applic topical DAILY 09/12/22 01/17/23 History aspirin 81 mg chewable tablet 81 mg PO DAILY 09/12/22 01/17/23 History atorvastatin 20 mg tablet 20 mg PO DAILY 09/12/22 01/17/23 History finasteride 5 mg tablet 5 mg PO DAILY 09/12/22 01/17/23 History gabapentin 100 mg capsule 100 mg PO BID 09/12/22 01/17/23 History lisinopril 20 mg tablet 20 mg PO QAM #30 tabs 09/14/22 01/17/23 Rx metoprolol succinate 25 mg 12.5 mg PO QAM #15 tabs 09/14/22 01/17/23 Rx tablet,extended release 24 hr sennosides 8.6 mg-docusate sodium 1 tab-cap PO DAILY #30 tabs 09/14/22 01/17/23 Rx 50 mg tablet (Senna with Docusate Sodium) alpha lipoic acid 300 mg capsule 600 mg PO QAM 01/17/23 01/17/23 History furosemide 20 mg tablet 20 mg PO DAILY PRN Edema 01/17/23 01/17/23 History mirtazapine 15 mg tablet 15 mg PO HS 01/17/23 01/17/23 History nut.tx.gluc.intol,lac-free,soy 1 ea PO BIDM 01/17/23 01/17/23 History (Glucerna Hunger Smart oral liquid) polyethylene glycol 3350 17 17 g PO DAILY PRN Constipation 01/17/23 01/17/23 History gram/dose oral powder (Miralax) Past Med/Surg History Medical History Closed fracture of right hip Diabetes Duodenal ulcer HLD (hyperlipidemia) HTN (hypertension) Near syncope Paroxysmal supraventricular tachycardia Recurrent UTI Weakness Surgical History History of total hip arthroplasty S/P cholecystectomy Family History Other Cancer Lung disease Social History Smoking Status: Never smoker Tobacco Type: Cigarettes Second Hand Exposure: No; Do You Dip or Chew Tobacco: Yes; Hx Alcohol Use: No Hx Substance Use: Yes Preferred Language: Italian Communication Ability: Effective Histology Supervisor Required: No Beliefs That Will Affect Care: None marital status: Current Living Situation: Family How many Children do You have: 2 Feels Safe at Home: Yes Assistive Devices: Walker Review of Systems Review of Systems: All systems reviewed & are unremarkable except as noted in Subjective Physical Exam Physical Exam: General- Not in distress Head- atraumatic Eyes- PERRL, ENT- oropharynx clear Neck- supple, no JVD, Lungs- clear to auscultation and percussion no added sounds Heart- regular rate and rhythm; no murmur, no gallop, no rub appreciated Abdomen- normal bowel sounds, soft, mild diffuse tender, no distension Extremities-mild pretibial edema, no erythema seeen. Neuro- alert, oriented x 3; PERRL, no facial palsy; no dysarthria; obeys commands, moves extremities. Skin- warm & dry Results & Data Results & Data Vital Signs (Past 12 Hours) Vital Signs Temp Pulse Pulse Resp BP BP Pulse Ox 01/17/23 07:10 38.5 C H 98 H 19 117/60 94 01/17/23 06:16 37.7 C H 01/17/23 06:00 99 H 20 108/61 98 01/17/23 04:58 38.0 C H 114 H 24 135/75 01/17/23 03:45 92 H 18 94/76 L 96 01/17/23 00:40 36.8 C 84 17 176/77 H 100 O2 Del Method 01/17/23 07:10 Room Air 01/17/23 06:16 01/17/23 06:00 Room Air 01/17/23 04:58 01/17/23 03:45 Room Air 01/17/23 00:40 Room Air Diagnostic Findings Laboratory Results WBC 16.37 K/ul (4.8-10.8) H 01/17/23 03:45 RBC 4.44 M/uL (4.70-6.10) L 01/17/23 03:45 Hgb 13.4 g/dl (14.0-18.0) L 01/17/23 03:45 Hct 39.4 % (42.0-52.0) L 01/17/23 03:45 MCV 88.7 fL (80.0-100.0) 01/17/23 03:45 MCH 30.2 pg (25.0-34.0) 01/17/23 03:45 MCHC 34.0 g/dL (32.0-36.0) 01/17/23 03:45 RDW Std Deviation 44.1 fL (36.4-46.3) 01/17/23 03:45 RDW Coeff of [place]leyda 13.5 % (11.5-14.5) 01/17/23 03:45 Plt Count 343 K/uL (130-400) 01/17/23 03:45 MPV 9.9 fL (9.4-12.4) 01/17/23 03:45 Immature Gran % (Auto) 0.4 % 01/17/23 03:45 Neut % (Auto) 84.3 % 01/17/23 03:45 Lymph % (Auto) 13.3 % 01/17/23 03:45 [place] % (Auto) 1.6 % 01/17/23 03:45 Eos % (Auto) 0.2 % 01/17/23 03:45 Baso % (Auto) 0.2 % 01/17/23 03:45 Neut # (Auto) 13.81 K/uL (1.40-6.50) H 01/17/23 03:45 Lymph # (Auto) 2.18 K/uL (1.2-3.4) 01/17/23 03:45 [place] # (Auto) 0.26 K/uL (0.11-0.59) 01/17/23 03:45 Eos # (Auto) 0.03 K/uL (0-0.50) 01/17/23 03:45 Baso # (Auto) 0.03 K/uL (0-0.2) 01/17/23 03:45 Immature Gran # (Auto) 0.06 K/uL (0.01-0.20) 01/17/23 03:45 Sodium 139 mmol/L (136-145) 01/17/23 03:45 Potassium 4.1 mmol/L (3.5-5.1) 01/17/23 06:45 Chloride 104 mmol/L (98-107) 01/17/23 03:45 Carbon Dioxide 24 mmol/L (21-32) 01/17/23 03:45 Anion Gap 11 (3-11) 01/17/23 03:45 BUN 20 mg/dl (6-23) 01/17/23 03:45 Creatinine 0.99 mg/dl (0.6-1.4) 01/17/23 03:45 Est Cr Clr Drug Dosing 53.1 ml/min 01/17/23 03:45 Est GFR ( Amer) 84.2 ml/min 01/17/23 03:45 Est GFR (Non-Af Amer) 72.6 ml/min 01/17/23 03:45 BUN/Creatinine Ratio 20.2 (10-20) H 01/17/23 03:45 Glucose 171 mg/dl (70-99(Fasting)) H 01/17/23 03:45 Lactate 3.7 mmol/L (0.4-2.0) H* 01/17/23 06:45 Calcium 9.6 mg/dl (8.6-10.3) 01/17/23 03:45 Magnesium 2.2 mg/dl (1.7-2.4) 01/17/23 03:45 Total Bilirubin 0.5 mg/dl (0.2-1.0) 01/17/23 03:45 AST 26 U/L (13-39) 01/17/23 06:45 ALT 18 U/L (7-52) 01/17/23 03:45 Alkaline Phosphatase 129 U/L (34-104) H 01/17/23 03:45 Troponin I High Sens 10.6 pg/ml (0-20) 01/17/23 03:45 Total Protein 8.0 gm/dl (6.0-8.3) 01/17/23 03:45 Albumin 3.7 gm/dl (3.4-5.0) 01/17/23 03:45 Globulin 4.3 gm/dl (2.5-4.0) H 01/17/23 03:45 Albumin/Globulin Ratio 0.9 (0.9-2) 01/17/23 03:45 Lipase 49 U/L (11-82) 01/17/23 03:45 Procalcitonin 0.07 ng/ml (0-0.5) 01/17/23 04:58 Urine Color Yellow 01/17/23 05:45 Urine Appearance Clear (Clear) 01/17/23 05:45 Urine pH 6.0 (4.5-7.5) 01/17/23 05:45 Ur Specific [place] 1.017 (1.000-1.030) 01/17/23 05:45 Urine Protein Negative (Negative) 01/17/23 05:45 Urine Glucose (UA) Negative (Negative) 01/17/23 05:45 Urine Ketones Negative (Negative) 01/17/23 05:45 Urine Blood Negative (Negative) 01/17/23 05:45 Urine Nitrite Negative (Negative) 01/17/23 05:45 Urine Bilirubin Negative (Negative) 01/17/23 05:45 Urine Urobilinogen Negative (Negative) 01/17/23 05:45 Ur Leukocyte Esterase Negative (Negative) 01/17/23 05:45 Adenovirus (PCR) Not Detected (NotDetected) 01/17/23 06:23 B. pertussis DNA (PCR) Not Detected (NotDetected) 01/17/23 06:23 B.parapertussis DNA PCR Not Detected (NotDetected) 01/17/23 06:23 C. pneumoniae DNA (PCR) Not Detected (NotDetected) 01/17/23 06:23 Coronavirus OC43 (PCR) Not Detected (NotDetected) 01/17/23 06:23 Coronavirus HKU1 (PCR) Not Detected (NotDetected) 01/17/23 06:23 Coronavirus 229E (PCR) Not Detected (NotDetected) 01/17/23 06:23 SARS-CoV-2 (PCR) Not Detected (NotDetected) 01/17/23 06:23 Coronavirus NL63 (PCR) Not Detected (NotDetected) 01/17/23 06:23 Human Metapneumovir PCR Not Detected (NotDetected) 01/17/23 06:23 Influenza Type A (PCR) Not Detected (NotDetected) 01/17/23 06:23 Influenza Type B (PCR) Not Detected (NotDetected) 01/17/23 06:23 M. pneumoniae (PCR) Not Detected (NotDetected) 01/17/23 06:23 Parainfluenza 1 (PCR) Not Detected (NotDetected) 01/17/23 06:23 Parainfluenza 2 (PCR) Not Detected (NotDetected) 01/17/23 06:23 Parainfluenza 3 (PCR) Not Detected (NotDetected) 01/17/23 06:23 Parainfluenza 4 (PCR) Not Detected (NotDetected) 01/17/23 06:23 RSV (PCR) Not Detected (NotDetected) 01/17/23 06:23 Entero/Rhino (PCR) Not Detected (NotDetected) 01/17/23 06:23 Impressions Abdomen/Pelvis CT 01/17/23 03:27 Exam(s): CT ABDOMEN + PELVIS With Contrast IV Amt: 93 ML OPTIRAY 350 EXAM: CT Abdomen and Pelvis With Intravenous Contrast CLINICAL HISTORY: Reason for exam: abd pain, poss obstruction. TECHNIQUE: Axial computed tomography images of the abdomen and pelvis with intravenous contrast. Automated exposure control was utilized for the study. A dose lowering technique was utilized adhering to the principles of ALARA. CONTRAST: Patient received 93 ML OPTIRAY 350 of IV contrast COMPARISON: October 18, 2022 FINDINGS: Lung bases: Mild scattered linear scarring in the lung bases. ABDOMEN: Liver: Unremarkable. No mass. Gallbladder and bile ducts: Slight biliary duct prominence postcholecystectomy. No choledocholithiasis is seen. Pancreas: Unremarkable. No mass. No ductal dilation. Spleen: Unremarkable. No splenomegaly. Adrenals: Unremarkable. No mass. Kidneys and ureters: There is a 7.3 cm simple cyst in the lower pole the right kidney. No follow-up is required. No hydronephrosis. Stomach and bowel: There is a large amount of stool throughout the transverse, left, and sigmoid colon measuring between 7 and 8 cm. The rectum measures 6.5 cm. Consider constipation. No mucosal thickening. PELVIS: Appendix: The appendix is normal. Bladder: The urinary bladder is fully distended but nondilated. Reproductive: Unremarkable as visualized. ABDOMEN and PELVIS: Intraperitoneal space: Unremarkable. No free air. No significant fluid collection. Bones/joints: Mild degenerative changes throughout the spine. No acute fracture or subluxation is seen. Soft tissues: Unremarkable. Vasculature: The abdominal aorta is heavily calcified but nondilated. Lymph nodes: Unremarkable. No enlarged lymph nodes. IMPRESSION: There is a large amount of stool throughout the transverse, left, and sigmoid colon measuring between 7 and 8 cm. The rectum measures 6.5 cm. Consider constipation. No pneumoperitoneum, for fluid, or abscess is seen. Electronically signed by: Aidan Luis MD 01/17/23 05:32 AM Chest X-Ray 01/17/23 04:58 SINGLE VIEW CHEST CLINICAL HISTORY: Fever FINDINGS: An AP, portable, upright chest radiograph is compared to study dated 09/12/2022. The heart is enlarged noting atherosclerotic calcification of the thoracic aorta. The pulmonary vasculature is noncongested. There is chronic elevation of the left hemidiaphragm with bibasilar scarring/atelectasis. Scattered calcified granulomas are unchanged. No airspace consolidation or large pleural effusion is identified. No pneumothorax is seen. The skeletal structures are osteopenic. The bony thorax is grossly intact. IMPRESSION: No acute cardiopulmonary abnormality. ACT 112: Negative or not required by law. Electronically signed by: Vishal Hardin M.D. 01/17/2023 7:31 AM ECG Additional Comments: ECG poor quality .wide QRS rhythm with rate 92 left axis deviation right bundle branch block Code Status & VTE Plan VTE Prophylaxis Plan VTE Prophylaxis will be ordered: Yes
[2023-01-17] MEDS ORDERED: GLUCAGON FOR INJ 1 MG VIAL SQ PRN (09:05)
[2023-01-17] MEDS ORDERED: NITROGLYCERIN SL 0.4 MG/TAB TAB SL PRN (09:05)
[2023-01-17] MEDS ORDERED: GLUCOSE 10 TAB/TUBE PO PRN (09:05)
[2023-01-17] MEDS ORDERED: GLUCOSE 40% GEL 15 GM TUBE PO PRN (09:05)
[2023-01-17] MEDS ORDERED: ACETAMINOPHEN 325 MG TAB PO PRN (09:05)
[2023-01-17] MEDS ORDERED: DEXTROSE 50% 50 ML SYRINGE IV PRN (09:05)
[2023-01-17] MEDS ORDERED: CARBOHYDRATES FOR HYPOGLYCEMIA PO PRN (09:05)
[2023-01-17] MEDS ORDERED: PIPERACILLIN/TAZOBACTAM 4.5 GM (over 30 mins) IV ONE (09:15)
--- NOTE | 2023-01-17 09:27 | Pharmacy Report ---
Pharmacy PK ABX Note - Date of Service January 17, 2023 - Assessment and Plan Assessment 77 year old M receiving vancomycin and zosyn empirically in the setting of sepsis. Blood cultures pending. Renal function stable. Day #1 of antimicrobial therapy. Plan Vancomycin * Loading dose: 1250 mg IV x 1 * Maintenance dose: 1000 mg IV every 18 hours to begin later this afternoon * Regimen is predicted to achieve target AUC/IMANI of 400-600 mg/L.hr * Will obtain a level around steady state if vancomycin continues. Pharmacy will continue to follow and will adjust dose/frequency as necessary. Thank you. Pharmacy has transitioned to AUC monitoring for vancomycin. AUC/IMANI is the preferred PK/PD target and is associated with decreased risk of nephrotoxicity compared to traditional trough targets.
[2023-01-17] MEDS: POLYETHYLENE (MIRALAX) 17 GM PACK PO SCH (10:26)
[2023-01-17] MEDS: ASPIRIN 81 MG CHEW PO SCH (10:27)
[2023-01-17] MEDS: FINASTERIDE 5 MG TAB PO SCH (10:28)
[2023-01-17] MEDS: ATORVASTATIN 20 MG TAB PO SCH (10:29)
[2023-01-17] MEDS: GABAPENTIN 100 MG CAP PO SCH ×2 (10:30→21:18)
[2023-01-17] MEDS: ENOXAPARIN INJ 40 MG/0.4 ML SYR SQ SCH (10:31)
[2023-01-17] MEDS: SODIUM CHLORIDE 0.9% 1000ML 1,000 ML IV SCH ×3 (10:34→21:16)
--- NOTE | 2023-01-17 12:01 | Electrocardiogram Report ---
Test Reason : Blood Pressure : / mmHG Vent. Rate : 092 BPM Atrial Rate : 000 BPM P-R Int : 000 ms QRS Dur : 122 ms QT Int : 404 ms P-R-T Axes : 000 -34 078 degrees QTc Int : 499 ms Poor data quality, interpretation may be adversely affected probably sinus rhythm Left axis deviation Right bundle branch block Abnormal ECG Confirmed by Noel Fitzpatrick ([id number]) on 01/17/2023 12:01:09 PM Referred By: REFERRED SELF Confirmed By:Stanislav Fitzpatrick
[2023-01-17] MEDS: INSULIN ASPART PER UNIT CHARGE SC SCH ×3 (12:47→22:52)
--- NOTE | 2023-01-17 15:53 | Communication Note ---
Date of Service: January 17, 2023 The patient was seen and examined in telemetry unit. Admitted this morning with sepsis likely secondary to complicated UTI. Has been feeling reasonably well since admission. Will a full progress note tomorrow. Dr Michael Gabriel
[2023-01-17] MEDS: PIPERACILLIN/TAZOBACTAM 4.5 GM in DEXTROSE 5% 100 ML IV SCH (15:55)
[2023-01-17] MEDS: VANCOMYCIN HCL 1,000 MG in SODIUM CHLORIDE 0.9% 250 ML IV SCH (17:11)
[2023-01-17] MEDS: MIRTAZAPINE TAB 15 MG TAB PO SCH (21:18)
[2023-01-17] MEDS ORDERED: Nursing to Pharmacy Communication SCH ×2 (22:45→23:45)
[2023-01-18] MEDS: PIPERACILLIN/TAZOBACTAM 4.5 GM in DEXTROSE 5% 100 ML IV SCH ×3 (00:22→16:54)
[2023-01-18] MEDS: INSULIN ASPART PER UNIT CHARGE SC SCH ×5 (00:25→20:22)
[2023-01-18] MEDS: SODIUM CHLORIDE 0.9% 1000ML 1,000 ML IV SCH ×2 (02:14→02:16)
[2023-01-18] MEDS ORDERED: Nursing to Pharmacy Communication SCH ×2 (05:00→13:30)
[2023-01-18 07:24] LABS: BUN Creatinine Ratio 22.6 (10-20); Calcium 8.4 mg/dl (8.6-10.3); Creatinine Clr Calc Pharmacy 86.6 ml/min; Est GFR (African American) 97.2 ml/min; Est GFR (Non-African American) 83.9 ml/min; Potassium 3.9 mmol/L (3.5-5.1)
[2023-01-18 07:41] LABS: Basophils # (auto) 0.03 K/uL (0-0.2); Basophils % (auto) 0.3 %; Echinocytes 1+; Eosinophils # (auto) 0.12 K/uL (0-0.50); Hematocrit (blood only) 29.5 % (42.0-52.0); Immature Granulocytes # (auto) 0.03 K/uL (0.01-0.20); Immature Granulocytes % (auto) 0.3 %; Lymphocytes # (auto) 1.76 K/uL (1.2-3.4); Lymphocytes % (auto) 15.2 %; Mean Corpuscular Hemoglobin 30.3 pg (25.0-34.0); Mean Corpuscular Hgb Conc 33.9 g/dL (32.0-36.0); Mean Corpuscular Volume 89.4 fL (80.0-100.0); Mean Platelet Volume 10.9 fL (9.4-12.4); Monocytes # (auto) 0.53 K/uL (0.11-0.59); Monocytes % (auto) 4.6 %; Neutrophils # (auto) 9.09 K/uL (1.40-6.50); Neutrophils % (auto) 78.6 %; Platelet Count 172 K/uL (130-400); Platelet Estimate Normal (Normal); RDW Coefficient of Variation 14.4 % (11.5-14.5); RDW Standard Deviation 46.5 fL (36.4-46.3); White Blood Count 11.56 K/ul (4.8-10.8)
[2023-01-18 08:40] LABS: Estimated Average Glucose 131 mg/dl; Hemoglobin A1C 6.2 % (4.5-5.6)
[2023-01-18] MEDS: FINASTERIDE 5 MG TAB PO SCH (09:12)
[2023-01-18] MEDS: ATORVASTATIN 20 MG TAB PO SCH (09:12)
[2023-01-18] MEDS: ASPIRIN 81 MG CHEW PO SCH (09:12)
[2023-01-18] MEDS: ENOXAPARIN INJ 40 MG/0.4 ML SYR SQ SCH ×2 (09:12→09:19)
[2023-01-18] MEDS: POLYETHYLENE (MIRALAX) 17 GM PACK PO SCH (09:13)
[2023-01-18] MEDS: GABAPENTIN 100 MG CAP PO SCH ×2 (09:13→21:09)
[2023-01-18] MEDS: VANCOMYCIN HCL 1,000 MG in SODIUM CHLORIDE 0.9% 250 ML IV SCH (09:36)
--- NOTE | 2023-01-18 15:35 | Hospitalist Progress Note ---
Date of Service January 18, 2023 Assessment & Plan (1) Severe sepsis: Plan: 77-year-old male past medical significant for type 2 diabetes, hyperlipidemia, hypertension, CVA, paroxysmal SVT, CAD, mild protein calorie moderation, history of duodenal ulcer hemorrhage, right renal mass, bladder outlet obstruction, history of complicated UTI, history of pressure injury of buttock stage I, history of A-fib, history of memory impairment, depression who lives at home wit h his was brought in by because of constipation. Sepsis likely secondary to transient migration of colonic bacteria following administration of enema for ongoing constipation In the ER after enema he had 2 large bowel movements then complained of abdominal pain. CT scan was okay. But then developed fever and tachycardia. Labs showed white count of 16 and lactic acid of 6. Received aggressive fluids and cefepime. S/p Meza. UA came back negative. Respiratory bio fire negative. Repeat lactic is 3.7. We will continue with IV fluid normal saline at 200 mill per hour for now and if hemodynamics stable can cut back on the fluids. Starting on IV Vanco and Zosyn. Has been feeling much better since admission and denies any significant symptoms Blood culture has been negative and urine culture has been negative No signs and symptoms of infection except white counts remain minimally elevated at 11.56 Recent treatment for UTI as an outpatient and that UA and urine culture have been negative in the hospital MRSA screen was negative for MRSA and vancomycin has been discontinued Will continue Zosyn for now Likely discharge tomorrow on oral Augmentin to cover her bowel pathogen Will get PT and OT evaluation prior to discharge Hypertension Holding the blood pressure medication lisinopril metoprolol succinate for now We will follow the blood pressures Will restart medications for blood pressure Bladder outlet obstruction with recurrent UTI Continue Proscar Follows with urology No urinary symptoms and UA and culture have been negative Hyperlipidemia on statin Depression on Remeron History of paroxysmal SVT In September 2022 admission digoxin was discontinued due to weakness and placed on metoprolol succinate which is on hold for now No tachycardia Chart history of paroxysmal fibrillation not on anticoagulation Iron deficiency anemia Hemoglobin 13.4 today Type 2 diabetes Not on meds Placed on sliding scale Follow HbA1c levels-6.2 DVT prophylaxis Lovenox Disposition telemetry floor Full code as per discussion with the patient Likely discharge tomorrow Admission and Anticipated Discharge Date Admission Date: January 17, 2023 Subjective 01/18/2023 The patient was seen and examined in telemetry unit He was admitted with severe sepsis like symptoms following enema for relief of constipation Has been feeling much better since admission Denies any symptoms of abdominal pain, nausea or vomiting, no urinary symptoms and no fever and no chills Review of Systems Review of Systems: All systems reviewed and are unremarkable except as noted below Physical Exam Physical Exam: Lying in bed comfortably Constitutional: average body habitus; not ill appearing Eyes: PERRL, conjunctivae normal, anicteric sclerae ENMT: external ear and nose normal, oropharynx normal Neck: trachea midline, no thyromegaly Respiratory: no respiratory distress Auscultation: lungs clear to auscultation bilaterally Cardiovascular: Rate/Rhythm: regular rate and regular rhythm; not tachycardic Heart Sounds: normal S1 and normal S2; no murmur Extremities: no edema Gastrointestinal (Abdomen): Inspection/Auscultation: normal bowel sounds; abdomen not distended Percussion/Palpation: abdomen soft; abdomen nontender Musculoskeletal: No acute arthritis involving any joint Neurologic: normal touch/pain/proprioception and moves all extremities; no focal motor deficits Psychiatric: A+Ox3, euthymic affect Lymphatic: no cervical or axillary lymphadenopathy Results & Data Results & Data Vital Signs (Past 12 Hours) Vital Signs Temp Pulse Resp BP BP Pulse Ox O2 Del Method 01/18/23 10:31 36.6 C 21 149/78 H 98 Room Air 01/18/23 08:00 Room Air 01/18/23 07:50 36.5 C 62 21 121/69 98 Room Air 01/18/23 03:36 37 C 64 18 120/70 98 Room Air Laboratory Results Short CBC 01/18/23 Range/Units 06:20 WBC 11.56 H (4.8-10.8) K/ul Hgb 10.0 L D (14.0-18.0) g/dl Hct 29.5 L (42.0-52.0) % Plt Count 172 (130-400) K/uL BMP 01/18/23 06:20 Sodium 140 Potassium 3.9 Chloride 112 H Carbon Dioxide 25 BUN 19 Creatinine 0.84 Glucose 88 Calcium 8.4 L Medications Administered Current Inpatient Medications Acetaminophen (Acetaminophen 325 Mg Tab) 650 mg PO Q4H PRN PRN Reason: Pain or Fever Stop: 02/16/23 09:04 Aspirin (Aspirin 81 Mg Chew) 81 mg PO DAILY RADHA Stop: 02/16/23 09:04 Last Admin: 01/18/23 09:12 Dose: 81 mg Atorvastatin Calcium (Atorvastatin 20 Mg Tab) 20 mg PO DAILY RADHA Stop: 02/16/23 09:04 Last Admin: 01/18/23 09:12 Dose: 20 mg Dextrose (Dextrose 50% 50 Ml Syringe) 25 - 50 ml IV UD PRN; Protocol PRN Reason: Hypoglycemia Protocol Stop: 02/16/23 09:04 Enoxaparin Sodium (Enoxaparin Inj 40 Mg/0.4 Ml Syr) 40 mg SQ DAILY RADHA Stop: 02/16/23 09:14 Last Admin: 01/18/23 09:19 Dose: Not Given Finasteride (Finasteride 5 Mg Tab) 5 mg PO DAILY [facility] Stop: 02/16/23 09:14 Last Admin: 01/18/23 09:12 Dose: 5 mg Gabapentin (Gabapentin 100 Mg Cap) 100 mg PO BID RADHA Stop: 02/16/23 09:04 Last Admin: 01/18/23 09:13 Dose: 100 mg Glucagon (Glucagon For Inj 1 Mg Vial) 1 mg SQ UD PRN; Protocol PRN Reason: Hypoglycemia Protocol Stop: 02/16/23 09:04 Glucose (Glucose 10 Tab/Tube) 4 - 8 tab PO UD PRN; Protocol PRN Reason: Hypoglycemia Treatment Stop: 02/16/23 09:04 Glucose (Glucose 40% Gel 15 Gm Tube) 15 - 30 gm PO UD PRN; Protocol PRN Reason: Hypoglycemia Protocol Stop: 02/16/23 09:04 Piperacillin Sod/Tazobactam (Sod 4.5 gm/ Dextrose) 120 mls @ 30 mls/hr IV Q8H [facility]; Protocol Stop: 01/27/23 14:59 Last Infusion: 01/18/23 12:06 Dose: Infused Insulin Aspart (Insulin Aspart Per Unit Charge) 0 units SC ACHS [facility] Stop: 02/17/23 00:00 Mirtazapine (Mirtazapine Tab 15 Mg Tab) 15 mg PO HS [facility] Stop: 02/16/23 20:59 Last Admin: 01/17/23 21:18 Dose: 15 mg Miscellaneous (Carbohydrates For Hypoglycemia ) 15 - 30 gm PO UD PRN PRN Reason: Hypoglycemia Protocol Stop: 02/16/23 09:04 Nitroglycerin (Nitroglycerin Sl 0.4 Mg/Tab Tab) 0.4 mg SL Q5M PRN PRN Reason: Chest Pain Stop: 02/16/23 09:04 Polyethylene Glycol (Polyethylene (Miralax) 17 Gm Pack) 17 gm PO DAILY RADHA Stop: 02/16/23 09:14 Last Admin: 01/18/23 09:13 Dose: 17 gm
[2023-01-18] MEDS: MIRTAZAPINE TAB 15 MG TAB PO SCH (21:09)
[2023-01-19] MEDS: PIPERACILLIN/TAZOBACTAM 4.5 GM in DEXTROSE 5% 100 ML IV SCH ×2 (00:44→08:08)
[2023-01-19 06:57] LABS: Basophils # (auto) 0.02 K/uL (0-0.2); Basophils % (auto) 0.2 %; Eosinophils # (auto) 0.12 K/uL (0-0.50); Eosinophils % (auto) 1.1 %; Hematocrit (blood only) 30.7 % (42.0-52.0); Hemoglobin 10.7 g/dl (14.0-18.0); Immature Granulocytes # (auto) 0.04 K/uL (0.01-0.20); Immature Granulocytes % (auto) 0.4 %; Lymphocytes # (auto) 1.98 K/uL (1.2-3.4); Mean Corpuscular Hemoglobin 30.1 pg (25.0-34.0); Mean Corpuscular Hgb Conc 34.9 g/dL (32.0-36.0); Mean Corpuscular Volume 86.2 fL (80.0-100.0); Monocytes # (auto) 0.55 K/uL (0.11-0.59); Monocytes % (auto) 5.3 %; Neutrophils # (auto) 7.73 K/uL (1.40-6.50); Platelet Count 186 K/uL (130-400); RDW Coefficient of Variation 13.6 % (11.5-14.5); RDW Standard Deviation 42.9 fL (36.4-46.3); Red Blood Count 3.56 M/uL (4.70-6.10); White Blood Count 10.44 K/ul (4.8-10.8)
[2023-01-19 07:09] LABS: BUN Creatinine Ratio 19.1 (10-20); Calcium 8.6 mg/dl (8.6-10.3); Creatinine Clr Calc Pharmacy 105.1 ml/min; Est GFR (Non-African American) 91.5 ml/min; Potassium 3.3 mmol/L (3.5-5.1)
[2023-01-19] MEDS: INSULIN ASPART PER UNIT CHARGE SC SCH ×2 (08:16→11:54)
[2023-01-19] MEDS: GABAPENTIN 100 MG CAP PO SCH ×2 (08:17→21:22)
[2023-01-19] MEDS: FINASTERIDE 5 MG TAB PO SCH (08:17)
[2023-01-19] MEDS: ASPIRIN 81 MG CHEW PO SCH (08:18)
[2023-01-19] MEDS: ATORVASTATIN 20 MG TAB PO SCH (08:18)
[2023-01-19] MEDS: POLYETHYLENE (MIRALAX) 17 GM PACK PO SCH (08:18)
[2023-01-19] MEDS: ENOXAPARIN INJ 40 MG/0.4 ML SYR SQ SCH ×2 (08:23→08:26)
[2023-01-19] MEDS ORDERED: POTASSIUM CHLORIDE CRTAB 20 MEQ TABCR PO STA (09:11)
--- NOTE | 2023-01-19 09:12 | Hospitalist Progress Note ---
Date of Service January 19, 2023 Assessment & Plan (1) SIRS (systemic inflammatory response syndrome): Plan: 77-year-old male past medical significant for type 2 diabetes, hyperlipidemia, hypertension, CVA, paroxysmal SVT, CAD, mild protein calorie moderation, history of duodenal ulcer hemorrhage, right renal mass, bladder outlet obstruction, history of complicated UTI, history of pressure injury of buttock stage I, history of A-fib, history of memory impairment, depression who lives at home with his was brought in by because of constipation. SIRS-sepsis ruled out with no evidence of infection, unclear trigger for SIRS. Stopping abx at this time. Remove urinary catheter to avoid hospital-acquired infection. Mild cough noted without evidence of significant infection or pneumonia on chest x-ray. Monitor 1 additional day in the hospital off antibiotics. Continue to monitor blood cultures which are negative to date. (2) HTN (hypertension): Plan: Initially held on admission, blood pressure is increased today to 172 systolic. Restarted home Toprol-XL and lisinopril this morning. (3) BPH (benign prostatic hyperplasia): Plan: Bladder outlet obstruction with recurrent UTI Continue Proscar Follows with urology No urinary symptoms and UA and culture have been negative Remove valladares catheter. (4) Depression: Plan: Chronic stable, continue Remeron per home regimen (5) Constipation: Plan: resolved early in admission after enema. (6) HLD (hyperlipidemia): Plan: Chronic, stable. Continue atorvastatin per home regimen. (7) Ventricular tachycardia: Plan: History of ventricular tachycardia. He remains on Toprol-XL for this. Followed by cardiology as outpatient. He has remained in normal sinus rhythm during this admission. (8) DMII (diabetes mellitus, type 2): Plan: diet controlled, Placed on sliding scale insulin coverage. Will stop this now. A1C 6.2. Lovenox Full code [facility]position-[facility] and observe overnight. If improved and feeling well, to home in a.m. I spent a total [id number] coordinating, documenting, and providing care for this patient excluding time spent in the performance of separately billed services Norma Brar DO [facility] hospitalist Admission and Anticipated Discharge Date Admission Date: January 17, 2023 Subjective 77-year-old man presented with constipation and after self-induced manual disimpaction was seen to had a fever while still in the ER after enema which was successful. Despite resolution of his constipation he was seen to have a low white blood cell count of 16,000, lactic acid of 6 and tachycardia with a elevated temperature. Was admitted and placed on Zosyn and therapy for presumed severe sepsis. A Valladares catheter was placed. At this point there is no clear evidence of infection. He did report a cough that started yesterday but there is no evidence of pneumonia on the chest x-ray and no further fever or chills. Blood and urine cultures have been negative. He feels much better since admission and denies any significant symptoms. White blood cell count has resolved. Review of Systems Review of Systems: All systems reviewed negative except as indicated above. Physical Exam Physical Exam: CONSTITUTIONAL: WNWD, vitals as above, generally well-appearing, NAD EYES: normal conjunctivae, no scleral icterus ENT: external ear and nose normal,MMM NECK: trachea midline RESPIRATORY: clear to auscultation bilaterally, no crackles, rales or wheezes, normal respiratory effort CARDIOVASCULAR: regular rate and rhythm, S1 and 2 heard without murmurs, gallops or rubs, no JVD, no peripheral edema CHEST: inspection of chest was normal GASTROINTESTINAL: nontender, ND, no guarding MUSCULOSKELETAL: strength 5/5 throughout, head is normocephalic and atraumatic, SKIN: warm and dry, : valladares catheter in place draining yellow urine NEUROLOGIC: CN 2-12 grossly intact, no sensory deficit, normal cognition, normal speech, no tremor PSYCHIATRIC: alert cooperative and oriented to person, place and time. Euthymic mood, makes good eye contact, language grossly intact, recent and remote memory grossly intact. Results & Data Results & Data Vital Signs (Past 12 Hours) Vital Signs Temp Pulse Pulse Resp BP BP Pulse Ox 01/19/23 07:45 36.8 C 73 16 172/85 H 95 01/19/23 07:31 68 01/19/23 04:16 36.8 C 73 18 169/81 H 96 01/18/23 23:00 37.0 C 70 18 139/74 97 01/18/23 22:38 73 O2 Del Method 01/19/23 07:45 Room Air 01/19/23 07:31 01/19/23 04:16 Room Air 01/18/23 23:00 Room Air 01/18/23 22:38 Laboratory Results Short CBC 01/19/23 Range/Units 06:34 WBC 10.44 (4.8-10.8) K/ul Hgb 10.7 L (14.0-18.0) g/dl Hct 30.7 L (42.0-52.0) % Plt Count 186 (130-400) K/uL BMP 01/19/23 06:34 Sodium 140 Potassium 3.3 L Chloride 109 H Carbon Dioxide 26 BUN 13 Creatinine 0.68 Glucose 104 H Calcium 8.6 Medications Administered Current Inpatient Medications Acetaminophen (Acetaminophen 325 Mg Tab) 650 mg PO Q4H PRN PRN Reason: Pain or Fever Stop: 02/16/23 09:04 Aspirin (Aspirin 81 Mg Chew) 81 mg PO DAILY RADHA Stop: 02/16/23 09:04 Last Admin: 01/19/23 08:18 Dose: 81 mg Atorvastatin Calcium (Atorvastatin 20 Mg Tab) 20 mg PO DAILY RADHA Stop: 02/16/23 09:04 Last Admin: 01/19/23 08:18 Dose: 20 mg Dextrose (Dextrose 50% 50 Ml Syringe) 25 - 50 ml IV UD PRN; Protocol PRN Reason: Hypoglycemia Protocol Stop: 02/16/23 09:04 Enoxaparin Sodium (Enoxaparin Inj 40 Mg/0.4 Ml Syr) 40 mg SQ DAILY RADHA Stop: 02/16/23 09:14 Last Admin: 01/19/23 08:26 Dose: Not Given Finasteride (Finasteride 5 Mg Tab) 5 mg PO DAILY RADHA Stop: 02/16/23 09:14 Last Admin: 01/19/23 08:17 Dose: 5 mg Gabapentin (Gabapentin 100 Mg Cap) 100 mg PO BID RADHA Stop: 02/16/23 09:04 Last Admin: 01/19/23 08:17 Dose: 100 mg Glucagon (Glucagon For Inj 1 Mg Vial) 1 mg SQ UD PRN; Protocol PRN Reason: Hypoglycemia Protocol Stop: 02/16/23 09:04 Glucose (Glucose 10 Tab/Tube) 4 - 8 tab PO UD PRN; Protocol PRN Reason: Hypoglycemia Treatment Stop: 02/16/23 09:04 Glucose (Glucose 40% Gel 15 Gm Tube) 15 - 30 gm PO UD PRN; Protocol PRN Reason: Hypoglycemia Protocol Stop: 02/16/23 09:04 Piperacillin Sod/Tazobactam (Sod 4.5 gm/ Dextrose) 120 mls @ 30 mls/hr IV Q8H RADHA; Protocol Stop: 01/27/23 14:59 Last Admin: 01/19/23 08:08 Dose: 30 mls/hr Insulin Aspart (Insulin Aspart Per Unit Charge) 0 units SC ACHS RADHA Stop: 02/17/23 00:00 Last Admin: 01/19/23 08:16 Dose: Not Given Mirtazapine (Mirtazapine Tab 15 Mg Tab) 15 mg PO HS RADHA Stop: 02/16/23 20:59 Last Admin: 01/18/23 21:09 Dose: 15 mg Miscellaneous (Carbohydrates For Hypoglycemia ) 15 - 30 gm PO UD PRN PRN Reason: Hypoglycemia Protocol Stop: 02/16/23 09:04 Nitroglycerin (Nitroglycerin Sl 0.4 Mg/Tab Tab) 0.4 mg SL Q5M PRN PRN Reason: Chest Pain Stop: 02/16/23 09:04 Polyethylene Glycol (Polyethylene (Miralax) 17 Gm Pack) 17 gm PO DAILY RADHA Stop: 02/16/23 09:14 Last Admin: 01/19/23 08:18 Dose: 17 gm Potassium Chloride (Potassium Chloride Crtab 20 Meq Tabcr) 40 meq PO NOW STA Stop: 01/19/23 09:12 (5) Constipation Constipation type: unspecified constipation type Qualified Code(s): K59.00 - Constipation, unspecified
--- NOTE | 2023-01-19 09:41 | XRay Report ---
XR chest 1V portable CLINICAL HISTORY: new cough TECHNIQUE: Single frontal radiograph of the chest was obtained. Comparison: Comparison is made to chest radiograph 01/17/2023 FINDINGS: No lines and tubes are seen. Calcified aortic knob is seen. Elevation of left hemidiaphragm is seen w ith underlying atelectasis. No evidence of pleural effusion or pneumothorax. IMPRESSION: No acute abnormalities and in particular no radiographic evidence of pneumonia. ACT 112: Negative or not required by law. Electronically signed by: Colin Wood M.D. 01/19/2023 9:40 AM
[2023-01-19] MEDS ORDERED: guaiFENesin/DEXTROM SYRUP 200MG/20MG 10ML UDC PO STA (11:47)
[2023-01-19] MEDS: METOPROLOL SUCC 25MG EXT REL TAB PO SCH (11:56)
[2023-01-19] MEDS: lisinopril 20 MG TAB PO SCH (11:57)
[2023-01-19] MEDS: guaiFENesin/DEXTROM SYRUP 200MG/20MG 10ML UDC PO PRN (18:06)
[2023-01-19] MEDS: MIRTAZAPINE TAB 15 MG TAB PO SCH (21:22)
[2023-01-20] MEDS: guaiFENesin/DEXTROM SYRUP 200MG/20MG 10ML UDC PO PRN ×2 (03:08→15:03)
[2023-01-20] MEDS: FINASTERIDE 5 MG TAB PO SCH (07:58)
[2023-01-20] MEDS: lisinopril 20 MG TAB PO SCH (07:58)
[2023-01-20] MEDS: ASPIRIN 81 MG CHEW PO SCH (07:58)
[2023-01-20] MEDS: ATORVASTATIN 20 MG TAB PO SCH (07:59)
[2023-01-20] MEDS: ENOXAPARIN INJ 40 MG/0.4 ML SYR SQ SCH (07:59)
[2023-01-20] MEDS: GABAPENTIN 100 MG CAP PO SCH (07:59)
[2023-01-20] MEDS: POLYETHYLENE (MIRALAX) 17 GM PACK PO SCH (08:00)
[2023-01-20] MEDS: METOPROLOL SUCC 25MG EXT REL TAB PO SCH (08:12)
--- NOTE | 2023-01-20 14:37 | Discharge Summary ---
Discharge Summary Date of Service January 20, 2023 Notes For Next Care Provider There was no clear evidence of infection Please consider rechecking CBC, BMP and screening TSH Please ensure no further issues with bowels and that they are now regular. Medication Changes From Visit Augmentin Miralax/Citrucel OTC Admission HPI Per Admitting Provider 77-year-old male past medical significant for type 2 diabetes, hyperlipidemia, hypertension, CVA, paroxysmal SVT, CAD, mild protein calorie moderation, history of duodenal ulcer hemorrhage, right renal mass, bladder outlet obstruction, history of complicated UTI, history of pressure injury of buttock stage I, history of A-fib, history of memory impairment, depression who lives at home with his was brought in by because of constipation. Patient states has history of constipation. In the ER after enema he had 2 large bowel movements plan to discharge him when he complained of abdominal pain. Because of abdominal pain CAT scan of the abdomen pelvis was done. After coming from CAT scan patient complained of weakness not feeling well and was tachycardic and was spiking temperatures. Labs were drawn which showed elevated white count and lactic acid of 6. Patient patient is to UTI but UA came back negative. His blood pressure is okay received aggressive fluids and cefepime. Denies any headache. No blurred visions. Denies any cough. Currently no runny nose. No sore throat. No chest pain or shortness of breath. No nausea or vomiting. Currently abdominal pain is improved. S/p Valladares catheter in the ER. 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 Social history . Quit smoking in 1986 smoked 2.5 packs a day for 22 years. Quit alcohol 1980. No drug use. Family history father of lung cancer age 47 Principal Dx & Hospital Course #1 = Principal Diagnosis (1) SIRS (systemic inflammatory response syndrome): 77-year-old male past medical significant for type 2 diabetes, hyperlipidemia, hypertension, CVA, paroxysmal SVT, CAD, mild protein calorie moderation, history of duodenal ulcer hemorrhage, right renal mass, bladder outlet obstruction, history of complicated UTI, history of pressure injury of buttock stage I, history of A-fib, history of memory impairment, depression who lives at home with his was brought in by because of constipation. SIRS-sepsis ruled out with no evidence of infection, unclear trigger for SIRS. Stopping abx at this time. Remove urinary catheter to avoid hospital-acquired infection. Mild cough noted without evidence of significant infection or pneumonia on chest x-ray. Monitor 1 additional day in the hospital off antibiotics. Continue to monitor blood cultures which are negative to date. (2) HTN (hypertension): Initially held on admission, blood pressure is increased today to 172 systolic. Restarted home Toprol-XL and lisinopril this morning. (3) BPH (benign prostatic hyperplasia): Bladder outlet obstruction with recurrent UTI Continue Proscar Follows with urology No urinary symptoms and UA and culture have been negative Remove valladares catheter. (4) Depression: Chronic stable, continue Remeron per home regimen (5) Constipation: resolved early in admission after enema. (6) HLD (hyperlipidemia): Chronic, stable. Continue atorvastatin per home regimen. (7) Ventricular tachycardia: History of ventricular tachycardia. He remains on Toprol-XL for this. Followed by cardiology as outpatient. He has remained in normal sinus rhythm during this admission. (8) DMII (diabetes mellitus, type 2): diet controlled, Placed on sliding scale insulin coverage. Will stop this now. A1C 6.2. Plan 77 yo M admitted for rule out sepsis. He was empirically placed on Zosyn and clinically improved with improvement in leukocytosis (16K to normal) and lactate (6 to normal). He had no additional fever. He was otherwise doing well after having a BM and reported a h/o impaction many years ago. There was no evidence of infection including clear urine and clear chest xray. He had a CT a/p with intravenous contrast with no evidence of free air, fluid, abscess, colitis, etc. He did have significant fecal retention. He has had some known weight loss, but feels this is improving after successive hospital stays. He improved clinically and remained asymptomatic so his antibiotics were stopped and he was monitored closely in the hospital. He did not develop fevers, chills, or other symptoms and reports feeling at baseline. TSH screening and repeat labwork on day of discharge was unable to be performed as adult family home program manager was unable to obtain blood after several attempts and patient declined further attempts. Would recommend performing CBC, BMP and TSH in clinic next week. He did report having some watery stool just prior to discharge. Denied abdominal pain. He was given a short course of augmentin to take going home. He was counseled on the possibility of infectious diarrhea as a result of antibiotic use and instructed to call the hospital or PCP if loose stool persisted so this could be checked. He was discharged in stable condition with close primary care follow-up recommended. I did call and speak with his on day of discharge and all questions were answered to her satisfaction. Discharge Exam CONSTITUTIONAL: WNWD, vitals as above, generally well-appearing, NAD EYES: normal conjunctivae, no scleral icterus ENT: external ear and nose normal,MMM NECK: trachea midline RESPIRATORY: clear to auscultation bilaterally, no crackles, rales or wheezes, normal respiratory effort CARDIOVASCULAR: regular rate and rhythm, S1 and 2 heard without murmurs, gallops or rubs, no JVD, no peripheral edema CHEST: inspection of chest was normal GASTROINTESTINAL: nontender, ND, no guarding MUSCULOSKELETAL: strength 5/5 throughout, head is normocephalic and atraumatic, SKIN: warm and dry, : valladares catheter in place draining yellow urine NEUROLOGIC: CN 2-12 grossly intact, no sensory deficit, normal cognition, normal speech, no tremor PSYCHIATRIC: alert cooperative and oriented to person, place and time. Euthymic mood, makes good eye contact, language grossly intact, recent and remote memory grossly intact. Updated Medication List Medication Instructions Recorded Confirmed Type acetaminophen 325 mg tablet 650 mg PO Q4 PRN Fever Or Pain 09/12/22 01/17/23 History (Tylenol) ammonium lactate 12 % topical cream 1 applic topical DAILY 09/12/22 01/17/23 History aspirin 81 mg chewable tablet 81 mg PO DAILY 09/12/22 01/17/23 History atorvastatin 20 mg tablet 20 mg PO DAILY 09/12/22 01/17/23 History finasteride 5 mg tablet 5 mg PO DAILY 09/12/22 01/17/23 History gabapentin 100 mg capsule 100 mg PO BID 09/12/22 01/17/23 History lisinopril 20 mg tablet 20 mg PO QAM #30 tabs 09/14/22 01/17/23 Rx metoprolol succinate 25 mg 12.5 mg PO QAM #15 tabs 09/14/22 01/17/23 Rx tablet,extended release 24 hr sennosides 8.6 mg-docusate sodium 1 tab-cap PO DAILY #30 tabs 09/14/22 01/17/23 Rx 50 mg tablet (Senna with Docusate Sodium) alpha lipoic acid 300 mg capsule 600 mg PO QAM 01/17/23 01/17/23 History furosemide 20 mg tablet 20 mg PO DAILY PRN Edema 01/17/23 01/17/23 History mirtazapine 15 mg tablet 15 mg PO HS 01/17/23 01/17/23 History nut.tx.gluc.intol,lac-free,soy 1 ea PO BIDM 01/17/23 01/17/23 History (Glucerna Hunger Smart oral liquid) polyethylene glycol 3350 17 17 g PO DAILY PRN Constipation 01/17/23 01/17/23 History gram/dose oral powder (Miralax) amoxicillin 875 mg-potassium 1 tab PO BID #14 tabs 01/20/23 Rx clavulanate 125 mg tablet Hospital Stay Data Consultations 01/17/23 05:36 ED Decision to Admit Stat Diagnostic Imagining Performed 01/17/23 03:27 CT abd pelvis IV con only Stat Discharge Instructions Given to Patient (Per Discharging Provider) Please take all medications as instructed on discharge list below. It doesn't appear you had any evidence of infection causing your fever and elevated heart rate on admission. Your antibiotics were stopped for a day and you didn't have a return of symptoms or fever. It is possible that you may have had some kind of gastrointestinal illness, but that isn't clear. As we discussed, you are being given a short course of Augmentin to take with close follow-up the [facility] primary care next week. As you just mentioned the loose stools, there is always a concern for this being an infection from antibiotic use. Your bowel movements may also be trying to normalize after severe constipation. If this loose stool continues through the weekend, please discuss with PCP about checking the stool for any infection. You may also use some Citrucel or other fiber supplement to become more regular with your stools, and Miralax powder is a gentle laxative as needed for any further constipation. It is recommended that you followup with your primary care physician (PCP) next week at the date and time scheduled. Please continue monitoring your weight closely with your PCP. It was a pleasure taking care of you! Please call if you have any questions or problems. You can reach a [facility] hospitalist on duty at [facility] 24 hours a day by calling [phone]. Take care of yourself. Norma Brar, [facility] Hospitalist Total Time Total Time Spent Total Time Spent (In Minutes): 60
== END 2023-01-20 18:30 | disposition home or self-care (01) | DRG 864 ==
LOC: ED 00:36 → 2S 06:42 → SUATTDRO 06:42 → 2S 08:45 → 3W 01-20 04:03

== ENCOUNTER 2024-03-07 13:31 | Inpatient (IN) ==
--- NOTE | 2024-03-07 14:14 | Emergency Department Note ---
Impression & Plan Sepsis, Acute proctitis, Acute constipation ED Provider Note NAME: VICTOR MANUEL HENDERSON AGE: 79 SEX: M : 1945 ARRIVES VIA: Ambulance INFORMANT: Patient, EMS ED PROVIDER(S): Da Hull DO CHIEF COMPLAINT: Weakness HPI: The patient is an 79-year-old male who presented to the emergency department for generalized weakness. The patient has a history of urinary tract infection the past. There was reported nausea prior to arrival. The patient was treated with Zofran. The patient was noted have hypotension by the prehospital personnel. There was no reported cough or hemoptysis. There was no reported vomiting or abdominal pain. The patient at this time denies having any chest pain or difficulty breathing. ROS: See above HPI for pertinent positives & negatives. A total of 10 systems reviewed and were otherwise negative. PAST MEDICAL HISTORY: See Below PAST SURGICAL HISTORY: See Below FAMILY HISTORY: See Below SOCIAL HISTORY: See Below HOME MEDICATIONS: See Below ALLERGIES: See Below VITALS: See Below PHYSICAL EXAMINATION: GENERAL: The patient is awake to verbal commands. He seems somewhat listless. EYES: The conjunctivae are clear. The pupils are round and reactive. EARS, NOSE, MOUTH AND THROAT: The nose is without any evidence of any deformity. Mucous membranes are right. NECK: The neck is nontender and supple. RESPIRATORY: Normal respiratory effort is noted there is no evidence of wheezing rhonchi or rales CARDIOVASCULAR: Regular rate and rhythm noted there no murmurs rubs or gallops normal S1 normal S2. GASTROINTESTINAL: The abdomen is soft. Abdomen is nontender. MUSCULOSKELETAL/EXTREMITIES: There is no evidence of gross deformity full range of motion is noted in the hips and shoulders. SKIN: Skin is cool and mottled in the legs. There is pedal edema bilaterally. NEUROLOGIC: Patient is awake and oriented to person place and situation. Strength was symmetric but diminished. MEDICAL DECISION MAKING: The patient is an 79 male who presented to the emergency department for an evaluation of generalized weakness. The patient was found to be hypotensive. He was treated with multiple fluid boluses in the emergency department. He has a history of urine infection. He was treated with IV Zosyn after I reviewed the patient's previous urine cultures. He did grow out Pseudomonas in the past. The patient's urinalysis did not appear to be consistent with infection. Further laboratory and radiographic studies were obtained. His lactate level was high. He was treated with multiple fluid boluses. He was reevaluated multiple times. [facility] have agreed to evaluate the patient in the emergency department for further management and disposition. Triage Nursing notes reviewed. Prior medical records reviewed Vital Signs: reviewed and remarkable for initial hypotension. Differential diagnosis: Infection, dehydration, metabolic abnormality, hypo/hyperglycemia, electrolyte disturbance, anemia, hypoxia, cardiac sources, intracerebral event, toxicologic, neurologic, as well as other pathologies. ER treatment provided: See below Diagnostics interpreted by me: ECG: EKG was obtained in the emergency department. My interpretation is sinus bradycardia at 57 bpm. There is no ectopy. Nonspecific ST segment abnormalities were noted. This was compared to a tracing from January 17, 2023. No changes were noted. Cardiac Monitoring: An order was placed for continuous cardiac monitoring. The monitor shows a rate of 82 bpm with sinus rhythm. Laboratory studies: As stated above and show below. Imaging studies: See below. Radiographic imaging was reviewed by myself Consultation(s): I discussed this case with Nessa who is [facility] ED COURSE: Procedures: none Critical Care: I have personally spent greater than 45 minutes of critical care time in the direct management of this patient. This includes bedside care, interpretation of diagnostic studies, and testing, discussion with consultants, patient, and family members, and other required patient management activities. This 45 minutes is in excess of all separately billable procedures. Past Med/Surg History Problem List (Updated 03/07/24 @ 20:17 by Da Hull DO) Acute constipation (Acute) Acute proctitis (Acute) Sepsis (Acute) SIRS (systemic inflammatory response syndrome) Severe sepsis Constipation (Acute) Fever (Acute) Leukocytosis (Acute) Nausea (Acute) Tachycardia (Acute) Sepsis (Acute) Adrenal adenoma Arrhythmia (Acute) Near syncope (Acute) Constipation, chronic Insomnia BPH (benign prostatic hyperplasia) Sinus pause Ventricular tachycardia HLD (hyperlipidemia) Recurrent UTI Near syncope Weakness Depression Dehydration (Acute) Metabolic encephalopathy (Acute) Lethargy Carotid stenosis DVT prophylaxis Enlarged prostate Renal mass UTI (urinary tract infection) (Acute) Urinary retention Duodenal ulcer Paroxysmal supraventricular tachycardia S/P cholecystectomy Closed fracture of right hip (Acute) Diabetes HTN (hypertension) Medical History DMII (diabetes mellitus, type 2) Surgical History History of total hip arthroplasty Family History Other Cancer Lung disease Social History Smoking Status: Former smoker Tobacco Type: Cigarettes Second Hand Exposure: No; Do You Dip or Chew Tobacco: Yes; Hx Alcohol Use: No Hx Substance Use: No Preferred Language: Turkish Communication Ability: Effective 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 [employer]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 Required: No Beliefs That Will Affect Care: None marital status: Current Living Situation: Spouse How many Children do You have: 2 Feels Safe at Home: Yes Safety Concerns: Feels Safe At This Time Assistive Devices: Walker Allergies Allergies Allergy/AdvReac Type Severity Reaction Status Date / Time No Known Allergies Allergy Verified 01/17/23 01:26 Home Meds Home Medications Medication Instructions Recorded Confirmed acetaminophen 325 mg tablet 650 mg PO Q4 PRN Fever Or Pain 09/12/22 03/07/24 (Tylenol) atorvastatin 20 mg tablet 20 mg PO DAILY 09/12/22 03/07/24 gabapentin 100 mg capsule 100 mg PO BID 09/12/22 03/07/24 alpha lipoic acid 300 mg capsule 600 mg PO QAM 01/17/23 03/07/24 furosemide 20 mg tablet 20 mg PO DAILY PRN Edema 01/17/23 03/07/24 mirtazapine 15 mg tablet 15 mg PO HS 01/17/23 03/07/24 nut.tx.gluc.intol,lac-free,soy 1 ea PO BIDM 01/17/23 03/07/24 (Glucerna Hunger Smart oral liquid) polyethylene glycol 3350 17 17 g PO DAILY PRN Constipation 01/17/23 03/07/24 gram/dose oral powder (Miralax) Previous Rx's Medication Instructions Recorded lisinopril 20 mg tablet 20 mg PO QAM #30 tabs 09/14/22 metoprolol succinate 25 mg 12.5 mg (1/2 x 25 mg) PO QAM #15 09/14/22 tablet,extended release 24 hr tabs sennosides 8.6 mg-docusate sodium 1 tab-cap PO DAILY #30 tabs 09/14/22 50 mg tablet (Senna with Docusate Sodium) finasteride 5 mg tablet 5 mg PO DAILY #90 tabs 05/10/23 Results & Data (ED) Vital Signs Vital Signs - 24 hr 03/07/24 14:06 03/07/24 14:18 03/07/24 14:28 Temperature 36.5 C Temperature Source Oral Pulse Rate 68 98 H 59 L Pulse Rate from SpO2 Sensor 59 L Respiratory Rate 17 26 H Blood Pressure 66/38 L 68/40 L Blood Pressure Mean 47 49 Blood Pressure Position Semi-fowlers Pulse Oximetry 92 99 Oxygen Delivery Method Room Air Sepsis Recent Fever Within 48 Hours No Sepsis New/Unexplained Change in Mental Status Yes Sepsis Action Taken by Nursing Physician Notified 03/07/24 14:30 03/07/24 14:33 03/07/24 14:38 Temperature Temperature Source Pulse Rate 102 H Pulse Rate from SpO2 Sensor 66 68 Respiratory Rate 20 20 Blood Pressure 92/46 L 117/28 L Blood Pressure Mean 61 38 Blood Pressure Position Pulse Oximetry 99 98 Oxygen Delivery Method Sepsis Recent Fever Within 48 Hours Sepsis New/Unexplained Change in Mental Status Sepsis Action Taken by Nursing 03/07/24 14:43 03/07/24 14:45 03/07/24 14:45 Temperature Temperature Source Pulse Rate Pulse Rate from SpO2 Sensor 64 Respiratory Rate 24 Blood Pressure 112/58 L 90/59 L Blood Pressure Mean 76 60 Blood Pressure Position Pulse Oximetry 100 Oxygen Delivery Method Room Air Sepsis Recent Fever Within 48 Hours Sepsis New/Unexplained Change in Mental Status Sepsis Action Taken by Nursing 03/07/24 14:57 03/07/24 15:02 03/07/24 15:05 Temperature Temperature Source Pulse Rate Pulse Rate from SpO2 Sensor 62 Respiratory Rate 22 Blood Pressure 69/46 L 80/45 L 83/50 L Blood Pressure Mean 53 48 65 Blood Pressure Position Pulse Oximetry 99 Oxygen Delivery Method Sepsis Recent Fever Within 48 Hours Sepsis New/Unexplained Change in Mental Status Sepsis Action Taken by Nursing 03/07/24 15:05 03/07/24 15:09 03/07/24 15:11 Temperature Temperature Source Pulse Rate 61 Pulse Rate from SpO2 Sensor 61 Respiratory Rate 22 Blood Pressure 83/50 L 69/44 L Blood Pressure Mean 65 49 Blood Pressure Position Pulse Oximetry 99 Oxygen Delivery Method Sepsis Recent Fever Within 48 Hours Sepsis New/Unexplained Change in Mental Status Sepsis Action Taken by Nursing 03/07/24 15:45 03/07/24 16:03 03/07/24 16:15 Temperature Temperature Source Pulse Rate 74 Pulse Rate from SpO2 Sensor 81 75 82 Respiratory Rate 21 23 24 Blood Pressure 102/64 106/55 L 111/63 Blood Pressure Mean 83 72 79 Blood Pressure Position Pulse Oximetry 93 94 93 Oxygen Delivery Method Sepsis Recent Fever Within 48 Hours Sepsis New/Unexplained Change in Mental Status Sepsis Action Taken by Nursing 03/07/24 16:30 03/07/24 16:33 03/07/24 16:47 Temperature Temperature Source Pulse Rate 95 H Pulse Rate from SpO2 Sensor 82 Respiratory Rate 23 Blood Pressure 98/63 L 139/72 Blood Pressure Mean 68 86 Blood Pressure Position Pulse Oximetry 91 Oxygen Delivery Method Sepsis Recent Fever Within 48 Hours Sepsis New/Unexplained Change in Mental Status Sepsis Action Taken by Nursing 03/07/24 16:54 03/07/24 17:01 03/07/24 17:03 Temperature Temperature Source Pulse Rate 83 Pulse Rate from SpO2 Sensor 89 82 Respiratory Rate 23 25 H Blood Pressure 126/77 Blood Pressure Mean 89 Blood Pressure Position Pulse Oximetry 91 90 Oxygen Delivery Method Sepsis Recent Fever Within 48 Hours Sepsis New/Unexplained Change in Mental Status Sepsis Action Taken by [facility] Medications Current Medication List: was personally reviewed by me Laboratory Data Attestation: I reviewed the patient's lab results. 03/07/24 14:08 03/07/24 14:08 Lab Results 03/07/24 03/07/24 03/07/24 Range/Units 14:07 14:08 14:25 WBC 14.41 H (4.8-10.8) K/ul RBC 4.30 L (4.70-6.10) M/uL Hgb 12.8 L (14.0-18.0) g/dl Hct 38.5 L (42.0-52.0) % MCV 89.5 (80.0-100.0) fL MCH 29.8 (25.0-34.0) pg MCHC 33.2 (32.0-36.0) g/dL RDW Std Deviation 44.1 (36.4-46.3) fL RDW Coeff of Aleyda 13.6 (11.5-14.5) % Plt Count 296 (130-400) K/uL MPV 10.7 (9.4-12.4) fL Immature Gran % (Auto) 0.5 % Neut % (Auto) 85.8 % Lymph % (Auto) 10.3 % Alfalfa % (Auto) 3.1 % Eos % (Auto) 0.1 % Baso % (Auto) 0.2 % Neut # (Auto) 12.35 H (1.40-6.50) K/uL Lymph # (Auto) 1.49 (1.20-3.40) K/uL Alfalfa # (Auto) 0.45 (0.11-0.59) K/uL Eos # (Auto) 0.02 (0.00-0.50) K/uL Baso # (Auto) 0.03 (0.00-0.20) K/uL Immature Gran # (Auto) 0.07 (0.01-0.20) K/uL PT 11.7 (9.0-12.0) Seconds INR 1.1 (0.9-1.1) APTT 24 (21-31) Seconds PTT Ratio 0.9 VBG pH (7.36-7.41) VBG pCO2 (38-50) mmHg VBG pO2 mmHg VBG HCO3 mmol/L VBG O2 Saturation % VBG Base Excess mEq/L Sodium 140 (136-145) mmol/L Potassium 3.6 (3.5-5.1) mmol/L Chloride 103 (98-107) mmol/L Carbon Dioxide 24 (21-32) mmol/L Anion Gap 13 H (3-11) BUN 23 (6-23) mg/dl Creatinine 1.62 H (0.6-1.4) mg/dl Est Cr Clr Drug Dosing 42.3 ml/min Est GFR ( Amer) 45.8 ml/min Est GFR (Non-Af Amer) 39.5 ml/min BUN/Creatinine Ratio 14.2 (10-20) Glucose 211 H (70-99(Fasting)) mg/dl Lactate 6.1 H* (0.4-2.0) mmol/L Calcium 9.6 (8.6-10.3) mg/dl Magnesium 2.4 (1.7-2.4) mg/dl Total Bilirubin 0.5 (0.2-1.0) mg/dl Direct Bilirubin 0.1 (0-0.2) mg/dl AST 25 (13-39) U/L ALT 13 (7-52) U/L Alkaline Phosphatase 90 (34-104) U/L Troponin I High Sens 17.1 (0-20) pg/ml Total Protein 7.7 (6.0-8.3) gm/dl Albumin 3.9 (3.4-5.0) gm/dl Procalcitonin 0.03 (0-0.5) ng/ml Random Cortisol 38.43 mcg/dl Urine Color Yellow Urine Appearance Clear (Clear) Urine pH 8.0 H (4.5-7.5) Ur Specific [place] 1.011 (1.000-1.030) Urine Protein Trace H (Negative) Urine Glucose (UA) Negative (Negative) Urine Ketones Negative (Negative) Urine Blood Negative (Negative) Urine Nitrite Negative (Negative) Urine Bilirubin Negative (Negative) Urine Urobilinogen Negative (Negative) Ur Leukocyte Esterase Negative (Negative) Urine WBC (Auto) 0-5 (0-5) /hpf Urine RBC (Auto) 0-2 (0-2) /hpf U Hyaline Cast (Auto) 0-2 (0-2) /lpf U Epithel Cells (Auto) 0-2 (0-2) /hpf Urine Bacteria (Auto) None Seen (None Seen) SARS-CoV-2 (PCR) NEGATIVE (Negative) Influenza Type A (PCR) Negative (Neg) Influenza Type B (PCR) Negative (Neg) RSV (RT-PCR) Negative (Neg) 03/07/24 03/07/24 03/07/24 Range/Units 14:38 16:11 16:42 WBC (4.8-10.8) K/ul RBC (4.70-6.10) M/uL Hgb (14.0-18.0) g/dl Hct (42.0-52.0) % MCV (80.0-100.0) fL MCH (25.0-34.0) pg MCHC (32.0-36.0) g/dL RDW Std Deviation (36.4-46.3) fL RDW Coeff of Aleyda (11.5-14.5) % Plt Count (130-400) K/uL MPV (9.4-12.4) fL Immature Gran % (Auto) % Neut % (Auto) % Lymph % (Auto) % Alfalfa % (Auto) % Eos % (Auto) % Baso % (Auto) % Neut # (Auto) (1.40-6.50) K/uL Lymph # (Auto) (1.20-3.40) K/uL Alfalfa # (Auto) (0.11-0.59) K/uL Eos # (Auto) (0.00-0.50) K/uL Baso # (Auto) (0.00-0.20) K/uL Immature Gran # (Auto) (0.01-0.20) K/uL PT (9.0-12.0) Seconds INR (0.9-1.1) APTT (21-31) Seconds PTT Ratio VBG pH 7.18 L (7.36-7.41) VBG pCO2 63 H (38-50) mmHg VBG pO2 21 mmHg VBG HCO3 24 mmol/L VBG O2 Saturation < 60.0 % VBG Base Excess -5.9 mEq/L Sodium (136-145) mmol/L Potassium (3.5-5.1) mmol/L Chloride (98-107) mmol/L Carbon Dioxide (21-32) mmol/L Anion Gap (3-11) BUN (6-23) mg/dl Creatinine (0.6-1.4) mg/dl Est Cr Clr Drug Dosing ml/min Est GFR ( Amer) ml/min Est GFR (Non-Af Amer) ml/min BUN/Creatinine Ratio (10-20) Glucose (70-99(Fasting)) mg/dl Lactate Cancelled 4.3 H* (0.4-2.0) mmol/L Calcium (8.6-10.3) mg/dl Magnesium (1.7-2.4) mg/dl Total Bilirubin (0.2-1.0) mg/dl Direct Bilirubin (0-0.2) mg/dl AST (13-39) U/L ALT (7-52) U/L Alkaline Phosphatase (34-104) U/L Troponin I High Sens (0-20) pg/ml Total Protein (6.0-8.3) gm/dl Albumin (3.4-5.0) gm/dl Procalcitonin (0-0.5) ng/ml Random Cortisol mcg/dl Urine Color Urine Appearance (Clear) Urine pH (4.5-7.5) Ur Specific [place] (1.000-1.030) Urine Protein (Negative) Urine Glucose (UA) (Negative) Urine Ketones (Negative) Urine Blood (Negative) Urine Nitrite (Negative) Urine Bilirubin (Negative) Urine Urobilinogen (Negative) Ur Leukocyte Esterase (Negative) Urine WBC (Auto) (0-5) /hpf Urine RBC (Auto) (0-2) /hpf U Hyaline Cast (Auto) (0-2) /lpf U Epithel Cells (Auto) (0-2) /hpf Urine Bacteria (Auto) (None Seen) SARS-CoV-2 (PCR) (Negative) Influenza Type A (PCR) (Neg) Influenza Type B (PCR) (Neg) RSV (RT-PCR) (Neg) 03/07/24 Range/Units 16:46 WBC (4.8-10.8) K/ul RBC (4.70-6.10) M/uL Hgb (14.0-18.0) g/dl Hct (42.0-52.0) % MCV (80.0-100.0) fL MCH (25.0-34.0) pg MCHC (32.0-36.0) g/dL RDW Std Deviation (36.4-46.3) fL RDW Coeff of Aleyda (11.5-14.5) % Plt Count (130-400) K/uL MPV (9.4-12.4) fL Immature Gran % (Auto) % Neut % (Auto) % Lymph % (Auto) % Alfalfa % (Auto) % Eos % (Auto) % Baso % (Auto) % Neut # (Auto) (1.40-6.50) K/uL Lymph # (Auto) (1.20-3.40) K/uL Alfalfa # (Auto) (0.11-0.59) K/uL Eos # (Auto) (0.00-0.50) K/uL Baso # (Auto) (0.00-0.20) K/uL Immature Gran # (Auto) (0.01-0.20) K/uL PT (9.0-12.0) Seconds INR (0.9-1.1) APTT (21-31) Seconds PTT Ratio VBG pH 7.35 L (7.36-7.41) VBG pCO2 37 L (38-50) mmHg VBG pO2 81 mmHg VBG HCO3 20 mmol/L VBG O2 Saturation 97.4 % VBG Base Excess -4.7 mEq/L Sodium (136-145) mmol/L Potassium (3.5-5.1) mmol/L Chloride (98-107) mmol/L Carbon Dioxide (21-32) mmol/L Anion Gap (3-11) BUN (6-23) mg/dl Creatinine (0.6-1.4) mg/dl Est Cr Clr Drug Dosing ml/min Est GFR ( Amer) ml/min Est GFR (Non-Af Amer) ml/min BUN/Creatinine Ratio (10-20) Glucose (70-99(Fasting)) mg/dl Lactate (0.4-2.0) mmol/L Calcium (8.6-10.3) mg/dl Magnesium (1.7-2.4) mg/dl Total Bilirubin (0.2-1.0) mg/dl Direct Bilirubin (0-0.2) mg/dl AST (13-39) U/L ALT (7-52) U/L Alkaline Phosphatase (34-104) U/L Troponin I High Sens (0-20) pg/ml Total Protein (6.0-8.3) gm/dl Albumin (3.4-5.0) gm/dl Procalcitonin (0-0.5) ng/ml Random Cortisol mcg/dl Urine Color Urine Appearance (Clear) Urine pH (4.5-7.5) Ur Specific [place] (1.000-1.030) Urine Protein (Negative) Urine Glucose (UA) (Negative) Urine Ketones (Negative) Urine Blood (Negative) Urine Nitrite (Negative) Urine Bilirubin (Negative) Urine Urobilinogen (Negative) Ur Leukocyte Esterase (Negative) Urine WBC (Auto) (0-5) /hpf Urine RBC (Auto) (0-2) /hpf U Hyaline Cast (Auto) (0-2) /lpf U Epithel Cells (Auto) (0-2) /hpf Urine Bacteria (Auto) (None Seen) SARS-CoV-2 (PCR) (Negative) Influenza Type A (PCR) (Neg) Influenza Type B (PCR) (Neg) RSV (RT-PCR) (Neg) Administered Medications Daptomycin 325 mg/ Syringe 6.5 mls @ 3.25 mls/min IV Q24H RADHA; Protocol Stop: 03/09/24 18:59 Last Admin: 03/07/24 19:44 Dose: 3.25 mls/min Documented By: EILEEN Piperacillin Sod/Tazobactam Sod (Zosyn) 4.5 gm in 100 mls @ 25 mls/hr IV Q8H RADHA Stop: 03/09/24 19:59 Last Admin: 03/07/24 20:11 Dose: 25 mls/hr Documented By: EILEEN Acetaminophen (Ofirmev) 1,000 mg in 100 mls @ 400 mls/hr IV Q8H PRN PRN Reason: Pain or Fever Stop: 03/10/24 18:52 Last Admin: 03/07/24 19:43 Dose: 400 mls/hr Documented By: EILEEN Sodium Chloride (Nss) 1,000 mls @ 125 mls/hr IV .Q8H RADHA Stop: 04/06/24 19:29 Last Admin: 03/07/24 19:43 Dose: 125 mls/hr Documented By: EILEEN Discontinued Medications Sodium Chloride (Nss) 1,000 mls @ 999 mls/hr IV .Q1H1M ONE Stop: 03/07/24 15:07 Last Infusion: 03/07/24 16:16 Dose: Infused Documented By: Admin: 03/07/24 14:39 Dose: 999 mls/hr Documented By: Infusion: 03/07/24 14:39 Dose: Infused Documented By: Admin: 03/07/24 14:28 Dose: 999 mls/hr Documented By: NIMISHA Piperacillin Sod/Tazobactam Sod (Zosyn) 4.5 gm in 100 mls @ 200 mls/hr IV NOW ONE Stop: 03/07/24 14:43 Last Infusion: 03/07/24 16:16 Dose: Infused Documented By: Admin: 03/07/24 14:28 Dose: 200 mls/hr Documented By: NIMISHA Sodium Chloride (Nss) 1,000 mls @ 999 mls/hr IV .Q1H1M ONE Stop: 03/07/24 15:36 Last Admin: 03/07/24 14:39 Dose: Not Given Documented By: ARS Sodium Chloride (Nss) 1,000 mls @ 999 mls/hr IV .Q1H1M ONE Stop: 03/07/24 17:14 Last Infusion: 03/07/24 18:05 Dose: Infused Documented By: Admin: 03/07/24 16:56 Dose: 999 mls/hr Documented By: RICARDO Ioversol (Optiray 320 125ml) 120 ml IV ONCE ONE Stop: 03/07/24 15:29 Last Admin: 03/07/24 15:28 Dose: 120 ml Documented By: JULIA Imaging Data Attestation: I personally reviewed and interpreted this imaging study as follows: My Impression: 1 view chest x-ray was obtained in the emergency department. My interpretation is no free air or definite full tray, final report below. CT of the brain was obtained in the emergency department. My interpretation is no intracranial hemorrhage or mass effect, final report below. Radiologist's Impression: Chest X-Ray 03/07/24 14:07 SINGLE VIEW CHEST CLINICAL HISTORY: Sepsis FINDINGS: An AP, portable, upright chest radiograph is compared to study dated 01/19/2023 and correlated with chest CT dated 02/18/2022. The heart is mildly enlarged noting atherosclerotic calcification of the thoracic aorta. Emphysema and chronic interstitial thickening is similar to previous. There is bibasilar scarring/atelectasis. No airspace consolidation or large pleural effusion is identified. There are scattered calcified granulomas. No pneumothorax is seen. The skeletal structures are osteopenic. The bony thorax is grossly intact. Cholecystectomy clips are seen in the right upper quadrant. IMPRESSION: Mild cardiomegaly and emphysema with no acute cardiopulmonary abnormality identified. ACT 112: Negative or not required by law. Electronically signed by: Vishal Hardin M.D. 03/07/2024 2:35 PM Chest CTA 03/07/24 14:36 CT angio chest PE protocol CLINICAL HISTORY: PE TECHNIQUE: Multidetector row helical CT of the chest was performed with angiographic protocol. Coronal and sagittal reformations were obtained. Coronal and sagittal MIPS were obtained from the axial data set and were submitted for review. Automated dose lowering techniques and/or adjustment according to patient size were utilized for this exam. Comparison: Comparison is made to CT chest 02/18/2022 FINDINGS: Lungs and pleura: Atelectasis is seen. Heart and pericardium: Cardiomegaly is seen with biatrial enlargement. Vessels: No evidence of pulmonary embolism. Severe coronary atherosclerosis is seen. Mediastinum and scooter: Unremarkable. Chest wall and lower neck: Unremarkable. Abdomen: A hiatal hernia is seen. Patient is status post lobectomy. Bones: Degenerative changes in the thoracic spine. IMPRESSION: No acute abnormality and in particular no evidence of pulmonary embolus. ACT 112: Negative or not required by law. Electronically signed by: Colin Wood M.D. 03/07/2024 3:[address] 03/07/24 14:36 CT OF THE HEAD WITHOUT CONTRAST CLINICAL HISTORY: Altered mental status. COMPARISON STUDY: MRI of the brain June 04, 2014. Head CT September 12, 2022. TECHNIQUE: Helical axial images of the head were obtained without IV contrast. Automated exposure control was utilized for the study. A dose lowering technique was utilized adhering to the principles of ALARA. FINDINGS: No acute intracranial hemorrhage, midline shift or mass effect is present. Dilatation of the lateral ventricles is unchanged and likely related to central atrophy. White matter hypodensities are unchanged. The basal cisterns are patent. No extra-axial collections are present. There are no findings to suggest acute dural sinus thrombosis or acute territorial infarct. No significant calvarial abnormalities are present. Visualized portions of the sinuses and mastoid air cells are clear. IMPRESSION: No acute intracranial findings. No change in appearance of the brain. ACT 112: Negative or not required by law. Electronically signed by: Julio aNvas M.D. 03/07/2024 3:45 PM Abdomen/Pelvis CT 03/07/24 14:53 CT abd pelvis IV con only CLINICAL HISTORY: sepsis TECHNIQUE: Helical axial images of the abdomen and pelvis were obtained and displayed. Automated dose lowering techniques and/or adjustment according to patient size were utilized for this exam. This exam was performed with intravenous contrast. CT DOSE: 2686.66 mGy.cm COMPARISON: Comparison is made to CT abdomen pelvis 10/25/2023 FINDINGS: Lower chest: Bibasilar atelectasis versus scarring is seen. Liver: Unremarkable. No focal lesions are seen. Gallbladder and biliary tree: Patient is status post cholecystectomy. Physiologic prominence of the biliary ducts is noted. Partial visualization of prominent segment 7 intrahepatic biliary ducts, similar to prior exam. Pancreas: Unremarkable, no focal lesions. Spleen: Unremarkable. Adrenals: Right adrenal lesion likely represents adenoma. Kidneys and ureters: There is a complex appearing right upper lobe lesion measuring 23 mm in diameter, similar to prior exam. Bladder: Limited evaluation due to underdistention. Reproductive organs: Unremarkable. Bowel: Large stool burden is again seen in the rectum. A small hiatal hernia is seen. Lymph nodes Retroperitoneal: Unremarkable. Pelvic: Unremarkable. Mesenteric: Unremarkable. Peritoneum: Normal. Vessels: Atherosclerotic calcifications are seen. Abdominal wall: Unremarkable. Bones: Degenerative changes in the visualized spine. Right hip arthroplasty is seen. IMPRESSION: 1. No acute abnormalities are seen to explain sepsis. There is prominent stool burden in the rectum without robert wall thickening to suggest stercoral colitis. 2. Interval stability of enhancing lesion in the right kidney superior pole which is again concerning for renal cell carcinoma. 3. Additional findings as above. ACT 112: Negative or not required by law. Electronically signed by: Colin Wood M.D. 03/07/2024 4:03 PM Discharge Plan Visit Data Chief Complaint: Weakness Stated Complaint: WEAKNESS ED Provider: Da Hull Discharge Problem: Sepsis, Acute proctitis, Acute constipation Patient Disposition: Admitted As Inpatient Discharge Instructions Interventions: ED Discharge Assessment Last Done: 03/07/24 18:06 Discharge Problem: Sepsis Qualifiers: Sepsis type: sepsis due to unspecified organism Sepsis acute organ dysfunction status: unspecified Qualified Code(s): A41.9 - Sepsis, unspecified organism
[2024-03-07 14:28] LABS: Basophils # (auto) 0.03 K/uL (0.00-0.20); Basophils % (auto) 0.2 %; Eosinophils # (auto) 0.02 K/uL (0.00-0.50); Eosinophils % (auto) 0.1 %; Hematocrit (blood only) 38.5 % (42.0-52.0); Hemoglobin 12.8 g/dl (14.0-18.0); Immature Granulocytes # (auto) 0.07 K/uL (0.01-0.20); Immature Granulocytes % (auto) 0.5 %; Lymphocytes # (auto) 1.49 K/uL (1.20-3.40); Lymphocytes % (auto) 10.3 %; Mean Corpuscular Hemoglobin 29.8 pg (25.0-34.0); Mean Corpuscular Hgb Conc 33.2 g/dL (32.0-36.0); Mean Corpuscular Volume 89.5 fL (80.0-100.0); Mean Platelet Volume 10.7 fL (9.4-12.4); Monocytes # (auto) 0.45 K/uL (0.11-0.59); Monocytes % (auto) 3.1 %; Neutrophils # (auto) 12.35 K/uL (1.40-6.50); Neutrophils % (auto) 85.8 %; Platelet Count 296 K/uL (130-400); RDW Coefficient of Variation 13.6 % (11.5-14.5); RDW Standard Deviation 44.1 fL (36.4-46.3); White Blood Count 14.41 K/ul (4.8-10.8)
[2024-03-07] MEDS: PIPERACILLIN/TAZOBACTAM 4.5 GM/100 ML BAG IV ONE (14:28)
[2024-03-07] MEDS: SODIUM CHLORIDE 0.9% 1,000 ML IV ONE ×3 (14:28→16:56)
--- NOTE | 2024-03-07 14:37 | XRay Report ---
SINGLE VIEW CHEST CLINICAL HISTORY: Sepsis FINDINGS: An AP, portable, upright chest radiograph is compared to study dated 01/19/2023 and correlat ed with chest CT dated 02/18/2022. The heart is mildly enlarged noting atherosclerotic calcification of the thoracic aorta. Emphysema and chronic interstitial thickening is similar to previous. There is b ibasilar scarring/atelectasis. No airspace consolidation or large pleural effusion is identified. The re are scattered calcified granulomas. No pneumothorax is seen. The skeletal structures are osteopeni c. The bony thorax is grossly intact. Cholecystectomy clips are seen in the right upper quadrant. IMPRESSION: Mild cardiomegaly and emphysema with no acute cardiopulmonary abnormality identified. ACT 112: Negative or not required by law. Electronically signed by: Vishal Hardin M.D. 03/07/2024 2:35 PM
[2024-03-07 14:38] LABS: Albumin Level 3.9 gm/dl (3.4-5.0); Bilirubin Direct 0.1 mg/dl (0-0.2); Bilirubin,Total 0.5 mg/dl (0.2-1.0); Calcium 9.6 mg/dl (8.6-10.3); Magnesium 2.4 mg/dl (1.7-2.4); Potassium 3.6 mmol/L (3.5-5.1)
[2024-03-07 14:43] LABS: BUN Creatinine Ratio 14.2 (10-20); Creatinine Clr Calc Pharmacy 42.3 ml/min; Est GFR (African American) 45.8 ml/min; Est GFR (Non-African American) 39.5 ml/min; Total Protein 7.7 gm/dl (6.0-8.3)
[2024-03-07 14:47] LABS: Base Excess VBG -5.9 mEq/L; HCO3 VBG 24 mmol/L; Oxygen Saturation VBG < 60.0 %; PCO2 VBG 63 mmHg (38-50); PO2 VBG 21 mmHg; pH VBG 7.18 (7.36-7.41)
[2024-03-07 14:53] LABS: Troponin I High Sensitivity 17.1 pg/ml (0-20)
[2024-03-07 14:54] LABS: INR 1.1 (0.9-1.1); Partial Thromboplastin Ratio 0.9; Partial Thromboplastin Time 24 Seconds (21-31); Prothrombin Time 11.7 Seconds (9.0-12.0)
[2024-03-07 14:57] LABS: Appearance Urine Clear (Clear); Bacteria Urine Automated None Seen (None Seen); Bilirubin Urine Negative (Negative); Blood Urine Negative (Negative); Cast Urine Automated 0-2 /lpf (0-2); Color Urine Yellow; Epithelial Cell Urine Auto 0-2 /hpf (0-2); Glucose Urine UA Negative (Negative); Ketones Urine Negative (Negative); Leukocyte Esterase Urine Negative (Negative); Nitrite Urine Negative (Negative); Protein Urine Trace (Negative); RBC Urine Automated 0-2 /hpf (0-2); Specific Gravity Urine 1.011 (1.000-1.030); Urobilinogen Urine Negative (Negative); WBC Urine Automated 0-5 /hpf (0-5)
[2024-03-07] MEDS: OPTIRAY 320 125ml IV ONE (15:28)
[2024-03-07 15:30] LABS: Influenza A virus by PCR Negative (Neg); Influenza B virus by PCR Negative (Neg); RSV by PCR Negative (Neg); SARS CoV2 RNA(COVID-19) Ceph NEGATIVE (Negative)
--- NOTE | 2024-03-07 15:46 | CT Scan Report ---
CT OF THE HEAD WITHOUT CONTRAST CLINICAL HISTORY: Altered mental status. COMPARISON STUDY: MRI of the brain June 04, 2014. Head CT September 12, 2022. TECHNIQUE: Helical axial images of the head were obtained without IV contrast. Automated exposure con trol was utilized for the study. A dose lowering technique was utilized adhering to the principles o f ALARA. FINDINGS: No acute intracranial hemorrhage, midline shift or mass effect is present. Dilatation of th e lateral ventricles is unchanged and likely related to central atrophy. White matter hypodensities a re unchanged. The basal cisterns are patent. No extra-axial collections are present. There are no fin dings to suggest acute dural sinus thrombosis or acute territorial infarct. No significant calvarial abnormalities are present. Visualized portions of the sinuses and mastoid air cells are clear. IMPRESSION: No acute intracranial findings. No change in appearance of the brain. ACT 112: Negative or not required by law. Electronically signed by: Julio Navas M.D. 03/07/2024 3:45 PM
--- NOTE | 2024-03-07 15:58 | CT Scan Report ---
CT angio chest PE protocol CLINICAL HISTORY: PE TECHNIQUE: Multidetector row helical CT of the chest was performed with angiographic protocol. Douglas l and sagittal reformations were obtained. Coronal and sagittal MIPS were obtained from the axial michelle a set and were submitted for review. Automated dose lowering techniques and/or adjustment according to patient size were utilized for this exam. Comparison: Comparison is made to CT chest 02/18/2022 FINDINGS: Lungs and pleura: Atelectasis is seen. Heart and pericardium: Cardiomegaly is seen with biatrial enlargement. Vessels: No evidence of pulmonary embolism. Severe coronary atherosclerosis is seen. Mediastinum and scooter: Unremarkable. Chest wall and lower neck: Unremarkable. Abdomen: A hiatal hernia is seen. Patient is status post lobectomy. Bones: Degenerative changes in the thoracic spine. IMPRESSION: No acute abnormality and in particular no evidence of pulmonary embolus. ACT 112: Negative or not required by law. Electronically signed by: Colin Wood M.D. 03/07/2024 3:57 PM
--- NOTE | 2024-03-07 16:04 | CT Scan Report ---
CT abd pelvis IV con only CLINICAL HISTORY: sepsis TECHNIQUE: Helical axial images of the abdomen and pelvis were obtained and displayed. Automated dose lowering techniques and/or adjustment according to patient size were utilized for this exam. This e xam was performed with intravenous contrast. CT DOSE: 2686.66 mGy.cm COMPARISON: Comparison is made to CT abdomen pelvis 10/25/2023 FINDINGS: Lower chest: Bibasilar atelectasis versus scarring is seen. Liver: Unremarkable. No focal lesions are seen. Gallbladder and biliary tree: Patient is status post cholecystectomy. Physiologic prominence of the b iliary ducts is noted. Partial visualization of prominent segment 7 intrahepatic biliary ducts, simil ar to prior exam. Pancreas: Unremarkable, no focal lesions. Spleen: Unremarkable. Adrenals: Right adrenal lesion likely represents adenoma. Kidneys and ureters: There is a complex appearing right upper lobe lesion measuring 23 mm in diameter , similar to prior exam. Bladder: Limited evaluation due to underdistention. Reproductive organs: Unremarkable. Bowel: Large stool burden is again seen in the rectum. A small hiatal hernia is seen. Lymph nodes Retroperitoneal: Unremarkable. Pelvic: Unremarkable. Mesenteric: Unremarkable. Peritoneum: Normal. Vessels: Atherosclerotic calcifications are seen. Abdominal wall: Unremarkable. Bones: Degenerative changes in the visualized spine. Right hip arthroplasty is seen. IMPRESSION: 1. No acute abnormalities are seen to explain sepsis. There is prominent stool burden in the rectum without robert wall thickening to suggest stercoral colitis. 2. Interval stability of enhancing lesion in the right kidney superior pole which is again concernin g for renal cell carcinoma. 3. Additional findings as above. ACT 112: Negative or not required by law. Electronically signed by: Colin Wood M.D. 03/07/2024 4:03 PM
[2024-03-07 16:55] LABS: Base Excess VBG -4.7 mEq/L; HCO3 VBG 20 mmol/L; Oxygen Saturation VBG 97.4 %; PCO2 VBG 37 mmHg (38-50); PO2 VBG 81 mmHg; pH VBG 7.35 (7.36-7.41)
--- NOTE | 2024-03-07 18:37 | History & Physical Report ---
Date of Service March 07, 2024 Assessment & Plan (1) SIRS (systemic inflammatory response syndrome): (2) Constipation: (3) Fever: (4) Leukocytosis: (5) Adrenal adenoma: (6) BPH (benign prostatic hyperplasia): (7) HLD (hyperlipidemia): (8) Depression: (9) Renal mass: (10) Diabetes: (11) HTN (hypertension): Plan Assessment and plan: Sepsis of unknown origin: Lactic acidosis: ABRAM: Hypotensive and tachycardic on arrival, febrilenow improved Lactic acid of 6, improved to 4.2 with IV fluids Blood pressure now improved SBP's in the 130s Given IV Zosyn in ED, check blood culture/urine culture CT chest/A/P negative, continue IV Dapto/Zosyn, follow-up on cultures Creatinine elevated 1.62, likely secondary to sepsis, Daily CMP Constipation: Vomiting bile on exam, reports last bowel movement was 4 days ago Dulcolax suppositories ordered, clear liquid diet Hx DM2: Check A1c, SSI/QID BGM Add Lantus as needed Hx HTN: Hold lisinopril, continue metoprolol with hold parameters Hx HLD: Hold atorvastatin with lactic acidosis Full code DVT prophylaxis: Heparin subcu A total of 75 minutes was spent coordinating, documenting, and providing care for this patient excluding time spent in the performance of separately billed services. This included personally reviewing all current labs and imaging studies, medication reconciliation, outpatient chart review, and discussion with specialist. History of Present Illness Chief Complaint: Generalized weakness, vomiting x 1 Primary Care Provider: Jesse Real DO The patient is an 79-year-old male with a past medical history of DM2, hyperlipidemia, HTN, CVA, SVT, CAD, right kidney mass, BPH, adrenal adenoma, depression who presents to the ED on 03/07/2024 with complaints of generalized weakness and not feeling well. Patient reported vomiting x 1 prior to arrival to ED. Patient has a history of frequent UTIs in the past which all make him very sick. The patient was noted to be hypotensive en route to the hospital. Patient denies any respiratory symptoms including cough/shortness of breath/chest pain. Patient reports his last bowel movement was about 4 days ago. Denies any fevers at home. On arrival to the ED, labs remarkable for 14.1, hemoglobin 12.8, anion gap 13, creatinine 1.62above baseline VBG completed showed a pH of 7.35, CO2 37, glucose 211, lactate UA fairly unremarkable Blood cultures pending 6.14.3 Abdomen/pelvis CT showed stool burden in the rectum, showed a right kidney superior pole enhancing lesionconcerning for renal cell carcinoma, which the patient reports is chronic Head CT was negative Chest x-ray was negative Chest CTA was negative for PE SBP's in the 80s on arrival to the ED, this improved with IV fluids, patient is now hemodynamically stable. No tachycardia noted. EKG shows sinus bradycardia The patient will be admitted for further management of sepsis unknown etiology Allergies Allergy/AdvReac Type Severity Reaction Status Date / Time No Known Allergies Allergy Verified 01/17/23 01:26 Home Medications Medication Instructions Recorded Confirmed Type acetaminophen 325 mg tablet 650 mg PO Q4 PRN Fever Or Pain 09/12/22 03/07/24 History (Tylenol) atorvastatin 20 mg tablet 20 mg PO DAILY 09/12/22 03/07/24 History gabapentin 100 mg capsule 100 mg PO BID 09/12/22 03/07/24 History lisinopril 20 mg tablet 20 mg PO QAM #30 tabs 09/14/22 03/07/24 Rx metoprolol succinate 25 mg 12.5 mg (1/2 x 25 mg) PO QAM #15 09/14/22 03/07/24 Rx tablet,extended release 24 hr tabs sennosides 8.6 mg-docusate sodium 1 tab-cap PO DAILY #30 tabs 09/14/22 03/07/24 Rx 50 mg tablet (Senna with Docusate Sodium) alpha lipoic acid 300 mg capsule 600 mg PO QAM 01/17/23 03/07/24 History furosemide 20 mg tablet 20 mg PO DAILY PRN Edema 01/17/23 03/07/24 History mirtazapine 15 mg tablet 15 mg PO HS 01/17/23 03/07/24 History nut.tx.gluc.intol,lac-free,soy 1 ea PO BIDM 01/17/23 03/07/24 History (Glucerna Hunger Smart oral liquid) polyethylene glycol 3350 17 17 g PO DAILY PRN Constipation 01/17/23 03/07/24 History gram/dose oral powder (Miralax) finasteride 5 mg tablet 5 mg PO DAILY #90 tabs 05/10/23 03/07/24 Rx Past Med/Surg History Problem List (Updated 03/07/24 @ 20:17 by Da Hull DO) Acute constipation (Acute) Acute proctitis (Acute) Sepsis (Acute) SIRS (systemic inflammatory response syndrome) Severe sepsis Constipation (Acute) Fever (Acute) Leukocytosis (Acute) Nausea (Acute) Tachycardia (Acute) Sepsis (Acute) Adrenal adenoma Arrhythmia (Acute) Near syncope (Acute) Constipation, chronic Insomnia BPH (benign prostatic hyperplasia) Sinus pause Ventricular tachycardia HLD (hyperlipidemia) Recurrent UTI Near syncope Weakness Depression Dehydration (Acute) Metabolic encephalopathy (Acute) Lethargy Carotid stenosis DVT prophylaxis Enlarged prostate Renal mass UTI (urinary tract infection) (Acute) Urinary retention Duodenal ulcer Paroxysmal supraventricular tachycardia S/P cholecystectomy Closed fracture of right hip (Acute) Diabetes HTN (hypertension) Medical History DMII (diabetes mellitus, type 2) Surgical History History of total hip arthroplasty Family History Other Cancer Lung disease Social History Smoking Status: Former smoker Tobacco Type: Cigarettes Second Hand Exposure: No; Do You Dip or Chew Tobacco: Yes; Hx Alcohol Use: No Hx Substance Use: No Preferred Language: Sinhala Communication Ability: Effective Chief [employer] Operator Required: No Beliefs That Will Affect Care: None marital status: Current Living Situation: Spouse How many Children do You have: 2 Feels Safe at Home: Yes Safety Concerns: Feels Safe At This Time Assistive Devices: Walker Review of Systems Review of Systems: Negative aside from stated in HPI Physical Exam Constitutional: WD/WN, vitals as above Eyes: PERRL, conjunctivae normal, anicteric sclerae ENMT: external ear and nose normal, oropharynx normal Neck: trachea midline, no thyromegaly Respiratory: normal respiratory effort, lungs clear to auscultation Cardiovascular: Rate/Rhythm: regular rate Extremities: + edema (+3 pitting pedal edema) Chest (Breasts): Chest: normal inspection of chest Gastrointestinal (Abdomen): normal bowel sounds, soft, nontender, no hepatosplenomegaly Inspection/Auscultation: + abdomen distended; + abnormal bowel sounds (Hypoactive bowel sounds consistent with constipation) Percussion/Palpation: + abdomen tender; no guarding Musculoskeletal: no cyanosis or clubbing, extremities motor strength 5/5 Skin: no rashes, warm and dry Neurologic: patellar DTR's 2+ bilat, sensation intact Psychiatric: A+Ox3, euthymic affect Lymphatic: no cervical or axillary lymphadenopathy Results & Data Results & Data Vital Signs (Past 12 Hours) Vital Signs Temp Pulse Resp BP Pulse Ox O2 Del Method 03/07/24 18:00 84 28 H 113/69 92 03/07/24 17:45 128/72 03/07/24 17:45 128/72 03/07/24 17:45 88 28 H 90 03/07/24 17:36 85 24 94 03/07/24 17:30 129/79 03/07/24 17:24 91 H 25 H 91 03/07/24 17:15 93 H 26 H 91 03/07/24 17:15 107/84 03/07/24 17:03 83 25 H 90 03/07/24 17:01 126/77 03/07/24 16:54 23 91 03/07/24 16:47 139/72 03/07/24 16:33 95 H 23 91 03/07/24 16:30 98/63 L 03/07/24 16:15 24 111/63 93 03/07/24 16:03 74 23 106/55 L 94 03/07/24 15:45 21 102/64 93 03/07/24 15:11 69/44 L 03/07/24 15:09 61 22 99 03/07/24 15:05 83/50 L 03/07/24 15:05 83/50 L 03/07/24 15:02 80/45 L 03/07/24 14:57 22 69/46 L 99 03/07/24 14:45 90/59 L 03/07/24 14:45 24 112/58 L 100 03/07/24 14:43 Room Air 03/07/24 14:38 117/28 L 03/07/24 14:33 102 H 20 92/46 L 98 03/07/24 14:30 20 99 03/07/24 14:28 36.5 C 59 L 26 H 68/40 L 99 Room Air 03/07/24 14:18 98 H 17 66/38 L 92 03/07/24 14:06 68 Diagnostic Findings Laboratory Results WBC 14.41 K/ul (4.8-10.8) H 03/07/24 14:08 RBC 4.30 M/uL (4.70-6.10) L 03/07/24 14:08 Hgb 12.8 g/dl (14.0-18.0) L 03/07/24 14:08 Hct 38.5 % (42.0-52.0) L 03/07/24 14:08 MCV 89.5 fL (80.0-100.0) 03/07/24 14:08 MCH 29.8 pg (25.0-34.0) 03/07/24 14:08 MCHC 33.2 g/dL (32.0-36.0) 03/07/24 14:08 RDW Std Deviation 44.1 fL (36.4-46.3) 03/07/24 14:08 RDW Coeff of Aleyda 13.6 % (11.5-14.5) 03/07/24 14:08 Plt Count 296 K/uL (130-400) 03/07/24 14:08 MPV 10.7 fL (9.4-12.4) 03/07/24 14:08 Immature Gran % (Auto) 0.5 % 03/07/24 14:08 Neut % (Auto) 85.8 % 03/07/24 14:08 Lymph % (Auto) 10.3 % 03/07/24 14:08 [place] % (Auto) 3.1 % 03/07/24 14:08 Eos % (Auto) 0.1 % 03/07/24 14:08 Baso % (Auto) 0.2 % 03/07/24 14:08 Neut # (Auto) 12.35 K/uL (1.40-6.50) H 03/07/24 14:08 Lymph # (Auto) 1.49 K/uL (1.20-3.40) 03/07/24 14:08 [place] # (Auto) 0.45 K/uL (0.11-0.59) 03/07/24 14:08 Eos # (Auto) 0.02 K/uL (0.00-0.50) 03/07/24 14:08 Baso # (Auto) 0.03 K/uL (0.00-0.20) 03/07/24 14:08 Immature Gran # (Auto) 0.07 K/uL (0.01-0.20) 03/07/24 14:08 PT 11.7 Seconds (9.0-12.0) 03/07/24 14:08 INR 1.1 (0.9-1.1) 03/07/24 14:08 APTT 24 Seconds (21-31) 03/07/24 14:08 PTT Ratio 0.9 03/07/24 14:08 VBG pH 7.35 (7.36-7.41) L 03/07/24 16:46 VBG pCO2 37 mmHg (38-50) L 03/07/24 16:46 VBG pO2 81 mmHg 03/07/24 16:46 VBG HCO3 20 mmol/L 03/07/24 16:46 VBG O2 Saturation 97.4 % 03/07/24 16:46 VBG Base Excess -4.7 mEq/L 03/07/24 16:46 Sodium 140 mmol/L (136-145) 03/07/24 14:08 Potassium 3.6 mmol/L (3.5-5.1) 03/07/24 14:08 Chloride 103 mmol/L (98-107) 03/07/24 14:08 Carbon Dioxide 24 mmol/L (21-32) 03/07/24 14:08 Anion Gap 13 (3-11) H 03/07/24 14:08 BUN 23 mg/dl (6-23) 03/07/24 14:08 Creatinine 1.62 mg/dl (0.6-1.4) H 03/07/24 14:08 Est Cr Clr Drug Dosing 42.3 ml/min 03/07/24 14:08 Est GFR ( Amer) 45.8 ml/min 03/07/24 14:08 Est GFR (Non-Af Amer) 39.5 ml/min 03/07/24 14:08 BUN/Creatinine Ratio 14.2 (10-20) 03/07/24 14:08 Glucose 211 mg/dl (70-99(Fasting)) H 03/07/24 14:08 Lactate 4.3 mmol/L (0.4-2.0) H* 03/07/24 16:42 Calcium 9.6 mg/dl (8.6-10.3) 03/07/24 14:08 Magnesium 2.4 mg/dl (1.7-2.4) 03/07/24 14:08 Total Bilirubin 0.5 mg/dl (0.2-1.0) 03/07/24 14:08 Direct Bilirubin 0.1 mg/dl (0-0.2) 03/07/24 14:08 AST 25 U/L (13-39) 03/07/24 14:08 ALT 13 U/L (7-52) 03/07/24 14:08 Alkaline Phosphatase 90 U/L (34-104) 03/07/24 14:08 Troponin I High Sens 17.1 pg/ml (0-20) 03/07/24 14:08 Total Protein 7.7 gm/dl (6.0-8.3) 03/07/24 14:08 Albumin 3.9 gm/dl (3.4-5.0) 03/07/24 14:08 Procalcitonin 0.03 ng/ml (0-0.5) 03/07/24 14:08 Random Cortisol 38.43 mcg/dl 03/07/24 14:08 Urine Color Yellow 03/07/24 14:07 Urine Appearance Clear (Clear) 03/07/24 14:07 Urine pH 8.0 (4.5-7.5) H 03/07/24 14:07 Ur Specific [place] 1.011 (1.000-1.030) 03/07/24 14:07 Urine Protein Trace (Negative) H 03/07/24 14:07 Urine Glucose (UA) Negative (Negative) 03/07/24 14:07 Urine Ketones Negative (Negative) 03/07/24 14:07 Urine Blood Negative (Negative) 03/07/24 14:07 Urine Nitrite Negative (Negative) 03/07/24 14:07 Urine Bilirubin Negative (Negative) 03/07/24 14:07 Urine Urobilinogen Negative (Negative) 03/07/24 14:07 Ur Leukocyte Esterase Negative (Negative) 03/07/24 14:07 Urine WBC (Auto) 0-5 /hpf (0-5) 03/07/24 14:07 Urine RBC (Auto) 0-2 /hpf (0-2) 03/07/24 14:07 U Hyaline Cast (Auto) 0-2 /lpf (0-2) 03/07/24 14:07 U Epithel Cells (Auto) 0-2 /hpf (0-2) 03/07/24 14:07 Urine Bacteria (Auto) None Seen (None Seen) 03/07/24 14:07 SARS-CoV-2 (PCR) NEGATIVE (Negative) 03/07/24 14:25 Influenza Type A (PCR) Negative (Neg) 03/07/24 14:25 Influenza Type B (PCR) Negative (Neg) 03/07/24 14:25 RSV (RT-PCR) Negative (Neg) 03/07/24 14:25 Impressions Chest X-Ray 03/07/24 14:07 SINGLE VIEW CHEST CLINICAL HISTORY: Sepsis FINDINGS: An AP, portable, upright chest radiograph is compared to study dated 01/19/2023 and correlated with chest CT dated 02/18/2022. The heart is mildly enlarged noting atherosclerotic calcification of the thoracic aorta. Emphysema and chronic interstitial thickening is similar to previous. There is bibasilar scarring/atelectasis. No airspace consolidation or large pleural effusion is identified. There are scattered calcified granulomas. No pneumothorax is seen. The skeletal structures are osteopenic. The bony thorax is grossly intact. Cholecystectomy clips are seen in the right upper quadrant. IMPRESSION: Mild cardiomegaly and emphysema with no acute cardiopulmonary abnormality identified. ACT 112: Negative or not required by law. Electronically signed by: Vishal Hardin M.D. 03/07/2024 2:35 PM Chest CTA 03/07/24 14:36 CT angio chest PE protocol CLINICAL HISTORY: PE TECHNIQUE: Multidetector row helical CT of the chest was performed with angiographic protocol. Coronal and sagittal reformations were obtained. Coronal and sagittal MIPS were obtained from the axial data set and were submitted for review. Automated dose lowering techniques and/or adjustment according to patient size were utilized for this exam. Comparison: Comparison is made to CT chest 02/18/2022 FINDINGS: Lungs and pleura: Atelectasis is seen. Heart and pericardium: Cardiomegaly is seen with biatrial enlargement. Vessels: No evidence of pulmonary embolism. Severe coronary atherosclerosis is seen. Mediastinum and scooter: Unremarkable. Chest wall and lower neck: Unremarkable. Abdomen: A hiatal hernia is seen. Patient is status post lobectomy. Bones: Degenerative changes in the thoracic spine. IMPRESSION: No acute abnormality and in particular no evidence of pulmonary embolus. ACT 112: Negative or not required by law. Electronically signed by: Colin Wood M.D. 03/07/2024 3:[address] 03/07/24 14:36 CT OF THE HEAD WITHOUT CONTRAST CLINICAL HISTORY: Altered mental status. COMPARISON STUDY: MRI of the brain June 04, 2014. Head CT September 12, 2022. TECHNIQUE: Helical axial images of the head were obtained without IV contrast. Automated exposure control was utilized for the study. A dose lowering technique was utilized adhering to the principles of ALARA. FINDINGS: No acute intracranial hemorrhage, midline shift or mass effect is present. Dilatation of the lateral ventricles is unchanged and likely related to central atrophy. White matter hypodensities are unchanged. The basal cisterns are patent. No extra-axial collections are present. There are no findings to suggest acute dural sinus thrombosis or acute territorial infarct. No significant calvarial abnormalities are present. Visualized portions of the sinuses and mastoid air cells are clear. IMPRESSION: No acute intracranial findings. No change in appearance of the brain. ACT 112: Negative or not required by law. Electronically signed by: Julio Navas M.D. 03/07/2024 3:45 PM Abdomen/Pelvis CT 03/07/24 14:53 CT abd pelvis IV con only CLINICAL HISTORY: sepsis TECHNIQUE: Helical axial images of the abdomen and pelvis were obtained and displayed. Automated dose lowering techniques and/or adjustment according to patient size were utilized for this exam. This exam was performed with intravenous contrast. CT DOSE: 2686.66 mGy.cm COMPARISON: Comparison is made to CT abdomen pelvis 10/25/2023 FINDINGS: Lower chest: Bibasilar atelectasis versus scarring is seen. Liver: Unremarkable. No focal lesions are seen. Gallbladder and biliary tree: Patient is status post cholecystectomy. Physiologic prominence of the biliary ducts is noted. Partial visualization of prominent segment 7 intrahepatic biliary ducts, similar to prior exam. Pancreas: Unremarkable, no focal lesions. Spleen: Unremarkable. Adrenals: Right adrenal lesion likely represents adenoma. Kidneys and ureters: There is a complex appearing right upper lobe lesion measuring 23 mm in diameter, similar to prior exam. Bladder: Limited evaluation due to underdistention. Reproductive organs: Unremarkable. Bowel: Large stool burden is again seen in the rectum. A small hiatal hernia is seen. Lymph nodes Retroperitoneal: Unremarkable. Pelvic: Unremarkable. Mesenteric: Unremarkable. Peritoneum: Normal. Vessels: Atherosclerotic calcifications are seen. Abdominal wall: Unremarkable. Bones: Degenerative changes in the visualized spine. Right hip arthroplasty is seen. IMPRESSION: 1. No acute abnormalities are seen to explain sepsis. There is prominent stool burden in the rectum without robert wall thickening to suggest stercoral colitis. 2. Interval stability of enhancing lesion in the right kidney superior pole which is again concerning for renal cell carcinoma. 3. Additional findings as above. ACT 112: Negative or not required by law. Electronically signed by: Colin Wood M.D. 03/07/2024 4:03 PM Code Status & VTE Plan VTE Prophylaxis Plan VTE Prophylaxis will be ordered: Yes Supervising Physician Co-Signing Physician Notes Patient is an 79-year-old male with history of diabetes mellitus, hyperlipidemia, CVA, adrenal adenoma, BPH, depression, SVT and other medical problems presents with history of nausea, vomiting, generalized weakness, lethargy. He admits to have dizziness intermittently and feels constipated, last bowel movement 4 days ago. He also reports having chills. He denies any significant abdominal pain. Also denies any chest pain, dyspnea, cough, dysuria, hematuria, fever, recent falls. Please review HPI for complete details of presentation. CTA chest, CT head showed no acute process. CT abdomen showed findings suggestive of stool burden with stercoral colitis and also noted right kidney lesion concerning for renal cell carcinoma. Blood work suggestive of leukocytosis, ABRAM with creatinine 1.6, lactic acidosis 6.1, hyperglycemia 211. I personally reviewed blood work and imaging studies. Physical Exam: Vitals signs as noted above General Appearance:Moderately built and nourished, ill-appearing, no apparent distress Head: normocephalic, Atraumatic Eyes: normal inspection, EOMI Neck: supple, Trachea midline Respiratory/Chest: Normal breath sounds, basal crackles, No accessory muscle use Cardiovascular: S1, S2, No murmur, tachycardia Abdomen/GI:Soft, mild abdominal tender, Bowel sounds present Extremities/Musculoskeletal:normal inspection, 2+ edema (chronic per patient) Neurologic/Psych:AAOX3, grossly no focal neurological deficits Skin: normal color, warm Sepsis--unclear etiology Lactic acidosis Constipation with stercoral colitis Acute kidney injury Right kidney lesion concerning for renal cell carcinoma Abdominal pain, lactic acidosis DD:Ischemic bowel Agree with starting broad-spectrum antibiotics, IV fluids Will check blood cultures, consider stool studies if develops diarrhea Trend lactate levels Will eventually need urology evaluation for right kidney lesion Normal cortisol levels noted Consult surgery given abdominal pain and associated lactic acidosis Monitor renal function and avoid nephrotoxic agents as able I personally interviewed and examined at bedside. Patient's care is coordinated with Adama WALDRON. I have reviewed the advanced practitioner's documentation, and I agree with plan of care. Please refer to the documentation above for details of patient's presentation and for discussion of other issues. I spent a total [id number] coordinating, documenting, and providing care for this patient excluding time spent in the performance of separately billed services. (2) Constipation Constipation type: unspecified constipation type Qualified Code(s): K59.00 - Constipation, unspecified (3) Fever Fever type: unspecified Qualified Code(s): R50.9 - Fever, unspecified (4) Leukocytosis Leukocytosis type: unspecified Qualified Code(s): D72.829 - Elevated white blood cell count, unspecified
[2024-03-07] MEDS ORDERED: GLUCOSE 40% GEL 15 GM TUBE PO PRN (18:39)
[2024-03-07] MEDS ORDERED: GLUCOSE 10 TAB/TUBE PO PRN (18:39)
[2024-03-07] MEDS ORDERED: GLUCAGON FOR INJ 1 MG VIAL SQ PRN (18:39)
[2024-03-07] MEDS ORDERED: DEXTROSE 50% 50 ML SYRINGE IV PRN (18:39)
[2024-03-07] MEDS ORDERED: CARBOHYDRATES FOR HYPOGLYCEMIA PO PRN (18:39)
[2024-03-07] MEDS ORDERED: bisacodyL 10 MG SUPP PR PRN (18:39)
[2024-03-07] MEDS ORDERED: POLYETHYLENE (MIRALAX) 17 GM PACK PO PRN (19:26)
[2024-03-07] MEDS: ACETAMINOPHEN 1,000 MG/100 ML VIAL IV PRN (19:43)
[2024-03-07] MEDS: SODIUM CHLORIDE 0.9% 1,000 ML IV SCH (19:43)
[2024-03-07] MEDS: DAPTOmycin 325 MG in SYRINGE 0 ML IV SCH (19:44)
[2024-03-07] MEDS: PIPERACILLIN/TAZOBACTAM 4.5 GM/100 ML BAG IV SCH (20:11)
[2024-03-07] MEDS: INSULIN ASPART PER UNIT CHARGE SC SCH (22:09)
[2024-03-07] MEDS: HEPARIN SOD 5,000 UNIT/0.5 ML VIAL SQ SCH (22:09)
[2024-03-07] MEDS: LACTATED RINGER'S 1,000 ML IV SCH (22:17)
--- NOTE | 2024-03-08 05:00 | Communication Note ---
Date of Service: March 08, 2024 Patient with fever and loose stools. Loose stools not present prior to admission as per RN. Stool C. difficile Flagyl 1 dose for presumptive C. difficile given sepsis criteria. Oral vancomycin if stool C. difficile positive
[2024-03-08] MEDS: metroNIDAZOLE 500 MG/100 ML BAG IV STA (05:44)
[2024-03-08] MEDS: POTASSIUM CHLORIDE PWD 20 MEQ PACK PO STA (05:46)
--- NOTE | 2024-03-08 05:57 | Electrocardiogram Report ---
Test Reason : Blood Pressure : */* mmHG Vent. Rate : 57 BPM Atrial Rate : 57 BPM P-R Int : 192 ms QRS Dur : 86 ms QT Int : 490 ms P-R-T Axes : 50 -38 63 degrees QTcB Int : 476 ms Sinus bradycardia Left axis deviation Abnormal ECG When compared with ECG of 17-Jan-2023 03:37, Vent. rate has decreased by 35 bpm Confirmed by Yosef Hui ([id number]) on 03/08/2024 5:57:07 AM Referred By: Confirmed By: Yosef Hui
--- NOTE | 2024-03-08 06:22 | Ultrasound Report ---
BILATERAL LOWER EXTREMITY VENOUS DOPPLER CLINICAL HISTORY: Leg edema R/O DVT COMPARISON STUDY: Bilateral lower extremity venous Doppler ultrasound March 14, 2022. TECHNIQUE: Sonography of the deep venous system of the bilateral lower extremities was performed. Co mpression and augmentation were evaluated. FINDINGS: The bilateral common femoral, superficial femoral and popliteal veins were compressible. A ugmentation was normal. Flow was shown within the deep calf vessels. IMPRESSION: No evidence of deep venous thrombus within the bilateral lower extremities. ACT 112: Negative or not required by law. Electronically signed by: Julio Navas M.D. 03/08/2024 6:20 AM
[2024-03-08] MEDS: POTASSIUM CHLORIDE 20 MEQ in LACTATED RINGER'S 1,000 ML IV ONE (06:43)
[2024-03-08 07:35] LABS: Adenovirus F 40/41 PCR Not Detected (NotDetected); Astrovirus PCR Not Detected (NotDetected); Campylobacter PCR Not Detected (NotDetected); Cryptosporidium PCR Not Detected (NotDetected); Cyclospora cayetanensis PCR Not Detected (NotDetected); Entamoeba histolytica PCR Not Detected (NotDetected); Enteroaggregative E.coli(EAEC) Not Detected (NotDetected); Enteropathogenic E.coli (EPEC) Not Detected (NotDetected); Enterotoxigenic E.coli (ETEC) Not Detected (NotDetected); Giardia lamblia PCR Not Detected (NotDetected); Norovirus GI/GII PCR Not Detected (NotDetected); Plesiomonas shigelloides PCR Not Detected (NotDetected); Rotavirus A PCR Not Detected (NotDetected); Salmonella PCR Not Detected (NotDetected); Sapovirus PCR Not Detected (NotDetected); Shiga-like Toxin E.coli (STEC) Not Detected (NotDetected); Shigella/Enteroinvasive E.coli Not Detected (NotDetected); Vibrio cholerae PCR Not Detected (NotDetected); Vibrio species PCR Not Detected (NotDetected); Yersinia enterocolitica PCR Not Detected (NotDetected)
[2024-03-08 07:36] LABS: Base Excess VBG -1.3 mEq/L; HCO3 VBG 25 mmol/L; Oxygen Saturation VBG < 60.0 %; PCO2 VBG 46 mmHg (38-50); PO2 VBG 29 mmHg; pH VBG 7.34 (7.36-7.41)
[2024-03-08 07:44] LABS: Basophils # (auto) 0.01 K/uL (0.00-0.20); Basophils % (auto) 0.1 %; Hematocrit (blood only) 38.6 % (42.0-52.0); Hemoglobin 12.9 g/dl (14.0-18.0); Immature Granulocytes # (auto) 0.08 K/uL (0.01-0.20); Immature Granulocytes % (auto) 0.5 %; Lymphocytes # (auto) 1.11 K/uL (1.20-3.40); Lymphocytes % (auto) 7.3 %; Mean Corpuscular Hemoglobin 29.9 pg (25.0-34.0); Mean Corpuscular Hgb Conc 33.4 g/dL (32.0-36.0); Mean Corpuscular Volume 89.4 fL (80.0-100.0); Mean Platelet Volume 10.9 fL (9.4-12.4); Monocytes # (auto) 1.05 K/uL (0.11-0.59); Monocytes % (auto) 6.9 %; Neutrophils # (auto) 12.98 K/uL (1.40-6.50); Neutrophils % (auto) 85.2 %; Platelet Count 203 K/uL (130-400); RDW Coefficient of Variation 14.1 % (11.5-14.5); Red Blood Count 4.32 M/uL (4.70-6.10); White Blood Count 15.23 K/ul (4.8-10.8)
[2024-03-08] MEDS: METOPROLOL SUCC 25MG EXT REL TAB PO SCH (08:08)
[2024-03-08] MEDS: FINASTERIDE 5 MG TAB PO SCH (08:08)
[2024-03-08 08:41] LABS: Albumin Globulin Ratio 1.1 (0.9-2); Albumin Level 3.5 gm/dl (3.4-5.0); Bilirubin,Total 0.7 mg/dl (0.2-1.0); Calcium 8.5 mg/dl (8.6-10.3); Creatinine Clr Calc Pharmacy 49.6 ml/min; Est GFR (African American) 55.6 ml/min; Est GFR (Non-African American) 47.9 ml/min; Globulin 3.3 gm/dl (2.5-4.0); Magnesium 2.2 mg/dl (1.7-2.4); Potassium 4.4 mmol/L (3.5-5.1); Total Protein 6.8 gm/dl (6.0-8.3)
[2024-03-08 09:01] LABS: Estimated Average Glucose 128 mg/dl; Hemoglobin A1C 6.1 % (4.5-5.6)
--- NOTE | 2024-03-08 12:16 | Surgery Consultation ---
Date of Consultation March 08, 2024 Assessment & Plan (1) Acute constipation: (2) Acute proctitis: (3) SIRS (systemic inflammatory response syndrome): Plan 79 yo male who presented to ED with weakness and not feeling well found to have elevated lactic acid, wbc, and febrile. CT scan with no acute processes for sepsis however per imaging has significant stool burden in the rectum and descending colon with dilated fluid filled small bowel and stomach. He is now having diarrhea with negative stool studies. Lactic acid from 6 --> 2.3. No acute abdomen on examination. No surgical indication . Recommend bowel regimen for stool burden, clear liquids, IV antibiotics and medical management [facility] surgery covering the weekend. History of Present Illness Reason for Consultation: abdominal pain Requesting Physician: MD Emilia Attending Physician: Killian Gabriel MD History of Present Illness Mr. Welsh is an 79-year-old male with a past medical history of DM2, hyperlipidemia, HTN, CVA, SVT, CAD, right kidney mass, BPH, adrenal adenoma, depression who presents to the ED on 03/07/2024 with complaints of generalized weakness and not feeling well. Patient reported vomiting x 1 prior to arrival to ED. Patient has a history of frequent UTIs in the past which all make him very sick. The patient was noted to be hypotensive en route to the hospital. Patient reports his last bowel movement was about 4 days ago. Denies any fevers at home. Allergies Allergy/AdvReac Type Severity Reaction Status Date / Time No Known Allergies Allergy Verified 01/17/23 01:26 Home Medications Medication Instructions Recorded Confirmed Type acetaminophen 325 mg tablet 650 mg PO Q4 PRN Fever Or Pain 09/12/22 03/07/24 History (Tylenol) atorvastatin 20 mg tablet 20 mg PO DAILY 09/12/22 03/07/24 History gabapentin 100 mg capsule 100 mg PO BID 09/12/22 03/07/24 History lisinopril 20 mg tablet 20 mg PO QAM #30 tabs 09/14/22 03/07/24 Rx metoprolol succinate 25 mg 12.5 mg (1/2 x 25 mg) PO QAM #15 09/14/22 03/07/24 Rx tablet,extended release 24 hr tabs sennosides 8.6 mg-docusate sodium 1 tab-cap PO DAILY #30 tabs 09/14/22 03/07/24 Rx 50 mg tablet (Senna with Docusate Sodium) alpha lipoic acid 300 mg capsule 600 mg PO QAM 01/17/23 03/07/24 History furosemide 20 mg tablet 20 mg PO DAILY PRN Edema 01/17/23 03/07/24 History mirtazapine 15 mg tablet 15 mg PO HS 01/17/23 03/07/24 History nut.tx.gluc.intol,lac-free,soy 1 ea PO BIDM 01/17/23 03/07/24 History (Glucerna Hunger Smart oral liquid) polyethylene glycol 3350 17 17 g PO DAILY PRN Constipation 01/17/23 03/07/24 History gram/dose oral powder (Miralax) finasteride 5 mg tablet 5 mg PO DAILY #90 tabs 05/10/23 03/07/24 Rx Patient History Medical History DMII (diabetes mellitus, type 2) Surgical History History of total hip arthroplasty Family History Other Cancer Lung disease Social History Smoking Status: Former smoker Tobacco Type: Cigarettes Second Hand Exposure: No; Do You Dip or Chew Tobacco: Yes; Hx Alcohol Use: No Hx Substance Use: No Preferred Language: Lao Communication Ability: Effective [employer] Required: No Beliefs That Will Affect Care: None marital status: Current Living Situation: Spouse How many Children do You have: 2 Feels Safe at Home: Yes Safety Concerns: Feels Safe At This Time Assistive Devices: Cane and Walker Review of Systems Review of Systems: All systems reviewed & are unremarkable except as noted in HPI & below Physical Exam Constitutional: WD/WN, vitals as above cooperative and comfortable; no acute distress and not ill appearing Respiratory: normal respiratory effort; no respiratory distress, no labored breathing and no retractions Gastrointestinal (Abdomen): Inspection/Auscultation: abdomen normal to inspection; abdomen not distended Percussion/Palpation: + abdomen tender (lower abdomen bilaterally) and abdomen soft; no guarding, abdomen not rigid and abdomen not firm Skin: no rashes, warm and dry Psychiatric: Orientation: alert and oriented x 3 Results & Data Vital Signs (Past 12 Hours) Vital Signs Temp Pulse Pulse Resp BP Pulse Ox O2 Del Method 03/08/24 10:55 37.0 C 74 19 119/68 96 Room Air 03/08/24 07:23 36.9 C 84 19 113/64 96 Room Air 03/08/24 07:15 88 03/08/24 04:26 88 03/08/24 02:16 37.7 C H 87 18 126/70 96 Room Air Laboratory Results 03/08/24 03/08/24 03/08/24 Range/Units Unknown 11:19 07:27 WBC 15.23 H (4.8-10.8) K/ul RBC 4.32 L (4.70-6.10) M/uL Hgb 12.9 L (14.0-18.0) g/dl Hct 38.6 L (42.0-52.0) % MCV 89.4 (80.0-100.0) fL MCH 29.9 (25.0-34.0) pg MCHC 33.4 (32.0-36.0) g/dL RDW Std Deviation 46.0 (36.4-46.3) fL RDW Coeff of Aleyda 14.1 (11.5-14.5) % Plt Count 203 (130-400) K/uL MPV 10.9 (9.4-12.4) fL Immature Gran % (Auto) 0.5 % Neut % (Auto) 85.2 % Lymph % (Auto) 7.3 % [place] % (Auto) 6.9 % Eos % (Auto) 0.0 % Baso % (Auto) 0.1 % Neut # (Auto) 12.98 H (1.40-6.50) K/uL Lymph # (Auto) 1.11 L (1.20-3.40) K/uL [place] # (Auto) 1.05 H (0.11-0.59) K/uL Eos # (Auto) 0.00 (0.00-0.50) K/uL Baso # (Auto) 0.01 (0.00-0.20) K/uL Immature Gran # (Auto) 0.08 (0.01-0.20) K/uL PT (9.0-12.0) Seconds INR (0.9-1.1) APTT (21-31) Seconds PTT Ratio VBG pH 7.34 L (7.36-7.41) VBG pCO2 46 (38-50) mmHg VBG pO2 29 mmHg VBG HCO3 25 mmol/L VBG O2 Saturation < 60.0 % VBG Base Excess -1.3 mEq/L Sodium 138 (136-145) mmol/L Potassium 4.4 D (3.5-5.1) mmol/L Chloride 106 (98-107) mmol/L Carbon Dioxide 22 (21-32) mmol/L Anion Gap 10 (3-11) BUN 29 H (6-23) mg/dl Creatinine 1.38 (0.6-1.4) mg/dl Est Cr Clr Drug Dosing 49.6 ml/min Est GFR ( Amer) 55.6 ml/min Est GFR (Non-Af Amer) 47.9 ml/min BUN/Creatinine Ratio 21.0 H (10-20) Glucose 168 H (70-99(Fasting)) mg/dl POC Glucose 148 H (70-99) mg/dl Estimat Average Glucose 128 mg/dl Hemoglobin A1c 6.1 H (4.5-5.6) % Lactate 2.3 H* (0.4-2.0) mmol/L Calcium 8.5 L (8.6-10.3) mg/dl Magnesium 2.2 (1.7-2.4) mg/dl Total Bilirubin 0.7 (0.2-1.0) mg/dl Direct Bilirubin (0-0.2) mg/dl AST 46 H (13-39) U/L ALT 22 (7-52) U/L Alkaline Phosphatase 67 (34-104) U/L Troponin I High Sens (0-20) pg/ml Total Protein 6.8 (6.0-8.3) gm/dl Albumin 3.5 (3.4-5.0) gm/dl Globulin 3.3 (2.5-4.0) gm/dl Albumin/Globulin Ratio 1.1 (0.9-2) Procalcitonin (0-0.5) ng/ml Random Cortisol mcg/dl Urine Color Urine Appearance (Clear) Urine pH (4.5-7.5) Ur Specific [place] (1.000-1.030) Urine Protein (Negative) Urine Glucose (UA) (Negative) Urine Ketones (Negative) Urine Blood (Negative) Urine Nitrite (Negative) Urine Bilirubin (Negative) Urine Urobilinogen (Negative) Ur Leukocyte Esterase (Negative) Urine WBC (Auto) (0-5) /hpf Urine RBC (Auto) (0-2) /hpf U Hyaline Cast (Auto) (0-2) /lpf U Epithel Cells (Auto) (0-2) /hpf Urine Bacteria (Auto) (None Seen) Nasal Screen MRSA (PCR) Negative (Negative) Stl C. cayetanensis PCR (NotDetected) Stool Rotavirus A PCR (NotDetected) Stl Adenov F 40/41 PCR (NotDetected) Stool Astrovirus (PCR) (NotDetected) Stool Campylobacter PCR (NotDetected) Stl C. diff Tox B Gene (Neg) Stool Cryptosporidium PCR (NotDetected) Stl E.coli Shiga Tox PCR (NotDetected) Stl Enterotoxigenic E PCR (NotDetected) Stool EPEC (PCR) (NotDetected) Stool EAEC (PCR) (NotDetected) Stl E. histolytica PCR (NotDetected) Stool Giardia Lamblia PCR (NotDetected) Stool Salmonella PCR (NotDetected) Stool Sapovirus (PCR) (NotDetected) Stl P. shigelloides PCR (NotDetected) Stl Shigella/EIEC PCR (NotDetected) St Y.enterocolitica PCR (NotDetected) Stool Vibrio (PCR) (NotDetected) Stl Vibrio cholerae PCR (NotDetected) Stl Norovirus GI/GII PCR (NotDetected) SARS-CoV-2 (PCR) (Negative) Influenza Type A (PCR) (Neg) Influenza Type B (PCR) (Neg) RSV (RT-PCR) (Neg) 03/08/24 03/08/24 03/08/24 Range/Units 07:25 05:50 02:10 WBC (4.8-10.8) K/ul RBC (4.70-6.10) M/uL Hgb (14.0-18.0) g/dl Hct (42.0-52.0) % MCV (80.0-100.0) fL MCH (25.0-34.0) pg MCHC (32.0-36.0) g/dL RDW Std Deviation (36.4-46.3) fL RDW Coeff of Aleyda (11.5-14.5) % Plt Count (130-400) K/uL MPV (9.4-12.4) fL Immature Gran % (Auto) % Neut % (Auto) % Lymph % (Auto) % [place] % (Auto) % Eos % (Auto) % Baso % (Auto) % Neut # (Auto) (1.40-6.50) K/uL Lymph # (Auto) (1.20-3.40) K/uL [place] # (Auto) (0.11-0.59) K/uL Eos # (Auto) (0.00-0.50) K/uL Baso # (Auto) (0.00-0.20) K/uL Immature Gran # (Auto) (0.01-0.20) K/uL PT (9.0-12.0) Seconds INR (0.9-1.1) APTT (21-31) Seconds PTT Ratio VBG pH (7.36-7.41) VBG pCO2 (38-50) mmHg VBG pO2 mmHg VBG HCO3 mmol/L VBG O2 Saturation % VBG Base Excess mEq/L Sodium (136-145) mmol/L Potassium (3.5-5.1) mmol/L Chloride (98-107) mmol/L Carbon Dioxide (21-32) mmol/L Anion Gap (3-11) BUN (6-23) mg/dl Creatinine (0.6-1.4) mg/dl Est Cr Clr Drug Dosing ml/min Est GFR ( Amer) ml/min Est GFR (Non-Af Amer) ml/min BUN/Creatinine Ratio (10-20) Glucose (70-99(Fasting)) mg/dl POC Glucose 176 H 164 H (70-99) mg/dl Estimat Average Glucose mg/dl Hemoglobin A1c (4.5-5.6) % Lactate (0.4-2.0) mmol/L Calcium (8.6-10.3) mg/dl Magnesium (1.7-2.4) mg/dl Total Bilirubin (0.2-1.0) mg/dl Direct Bilirubin (0-0.2) mg/dl AST (13-39) U/L ALT (7-52) U/L Alkaline Phosphatase (34-104) U/L Troponin I High Sens (0-20) pg/ml Total Protein (6.0-8.3) gm/dl Albumin (3.4-5.0) gm/dl Globulin (2.5-4.0) gm/dl Albumin/Globulin Ratio (0.9-2) Procalcitonin (0-0.5) ng/ml Random Cortisol mcg/dl Urine Color Urine Appearance (Clear) Urine pH (4.5-7.5) Ur Specific [place] (1.000-1.030) Urine Protein (Negative) Urine Glucose (UA) (Negative) Urine Ketones (Negative) Urine Blood (Negative) Urine Nitrite (Negative) Urine Bilirubin (Negative) Urine Urobilinogen (Negative) Ur Leukocyte Esterase (Negative) Urine WBC (Auto) (0-5) /hpf Urine RBC (Auto) (0-2) /hpf U Hyaline Cast (Auto) (0-2) /lpf U Epithel Cells (Auto) (0-2) /hpf Urine Bacteria (Auto) (None Seen) Nasal Screen MRSA (PCR) (Negative) Stl C. cayetanensis PCR Not Detected (NotDetected) Stool Rotavirus A PCR Not Detected (NotDetected) Stl Adenov F 40/41 PCR Not Detected (NotDetected) Stool Astrovirus (PCR) Not Detected (NotDetected) Stool Campylobacter PCR Not Detected (NotDetected) Stl C. diff Tox B Gene Negative Cdiff Gene (Neg) Stool Cryptosporidium PCR Not Detected (NotDetected) Stl E.coli Shiga Tox PCR Not Detected (NotDetected) Stl Enterotoxigenic E PCR Not Detected (NotDetected) Stool EPEC (PCR) Not Detected (NotDetected) Stool EAEC (PCR) Not Detected (NotDetected) Stl E. histolytica PCR Not Detected (NotDetected) Stool Giardia Lamblia PCR Not Detected (NotDetected) Stool Salmonella PCR Not Detected (NotDetected) Stool Sapovirus (PCR) Not Detected (NotDetected) Stl P. shigelloides PCR Not Detected (NotDetected) Stl Shigella/EIEC PCR Not Detected (NotDetected) St Y.enterocolitica PCR Not Detected (NotDetected) Stool Vibrio (PCR) Not Detected (NotDetected) Stl Vibrio cholerae PCR Not Detected (NotDetected) Stl Norovirus GI/GII PCR Not Detected (NotDetected) SARS-CoV-2 (PCR) (Negative) Influenza Type A (PCR) (Neg) Influenza Type B (PCR) (Neg) RSV (RT-PCR) (Neg) 03/07/24 03/07/24 03/07/24 Range/Units 22:47 20:19 19:41 WBC (4.8-10.8) K/ul RBC (4.70-6.10) M/uL Hgb (14.0-18.0) g/dl Hct (42.0-52.0) % MCV (80.0-100.0) fL MCH (25.0-34.0) pg MCHC (32.0-36.0) g/dL RDW Std Deviation (36.4-46.3) fL RDW Coeff of Aleyda (11.5-14.5) % Plt Count (130-400) K/uL MPV (9.4-12.4) fL Immature Gran % (Auto) % Neut % (Auto) % Lymph % (Auto) % [place] % (Auto) % Eos % (Auto) % Baso % (Auto) % Neut # (Auto) (1.40-6.50) K/uL Lymph # (Auto) (1.20-3.40) K/uL [place] # (Auto) (0.11-0.59) K/uL Eos # (Auto) (0.00-0.50) K/uL Baso # (Auto) (0.00-0.20) K/uL Immature Gran # (Auto) (0.01-0.20) K/uL PT (9.0-12.0) Seconds INR (0.9-1.1) APTT (21-31) Seconds PTT Ratio VBG pH (7.36-7.41) VBG pCO2 (38-50) mmHg VBG pO2 mmHg VBG HCO3 mmol/L VBG O2 Saturation % VBG Base Excess mEq/L Sodium (136-145) mmol/L Potassium (3.5-5.1) mmol/L Chloride (98-107) mmol/L Carbon Dioxide (21-32) mmol/L Anion Gap (3-11) BUN (6-23) mg/dl Creatinine (0.6-1.4) mg/dl Est Cr Clr Drug Dosing ml/min Est GFR ( Amer) ml/min Est GFR (Non-Af Amer) ml/min BUN/Creatinine Ratio (10-20) Glucose (70-99(Fasting)) mg/dl POC Glucose 146 H (70-99) mg/dl Estimat Average Glucose mg/dl Hemoglobin A1c (4.5-5.6) % Lactate 3.2 H* 3.0 H* (0.4-2.0) mmol/L Calcium (8.6-10.3) mg/dl Magnesium (1.7-2.4) mg/dl Total Bilirubin (0.2-1.0) mg/dl Direct Bilirubin (0-0.2) mg/dl AST (13-39) U/L ALT (7-52) U/L Alkaline Phosphatase (34-104) U/L Troponin I High Sens (0-20) pg/ml Total Protein (6.0-8.3) gm/dl Albumin (3.4-5.0) gm/dl Globulin (2.5-4.0) gm/dl Albumin/Globulin Ratio (0.9-2) Procalcitonin (0-0.5) ng/ml Random Cortisol mcg/dl Urine Color Urine Appearance (Clear) Urine pH (4.5-7.5) Ur Specific [place] (1.000-1.030) Urine Protein (Negative) Urine Glucose (UA) (Negative) Urine Ketones (Negative) Urine Blood (Negative) Urine Nitrite (Negative) Urine Bilirubin (Negative) Urine Urobilinogen (Negative) Ur Leukocyte Esterase (Negative) Urine WBC (Auto) (0-5) /hpf Urine RBC (Auto) (0-2) /hpf U Hyaline Cast (Auto) (0-2) /lpf U Epithel Cells (Auto) (0-2) /hpf Urine Bacteria (Auto) (None Seen) Nasal Screen MRSA (PCR) (Negative) Stl C. cayetanensis PCR (NotDetected) Stool Rotavirus A PCR (NotDetected) Stl Adenov F 40/41 PCR (NotDetected) Stool Astrovirus (PCR) (NotDetected) Stool Campylobacter PCR (NotDetected) Stl C. diff Tox B Gene (Neg) Stool Cryptosporidium PCR (NotDetected) Stl E.coli Shiga Tox PCR (NotDetected) Stl Enterotoxigenic E PCR (NotDetected) Stool EPEC (PCR) (NotDetected) Stool EAEC (PCR) (NotDetected) Stl E. histolytica PCR (NotDetected) Stool Giardia Lamblia PCR (NotDetected) Stool Salmonella PCR (NotDetected) Stool Sapovirus (PCR) (NotDetected) Stl P. shigelloides PCR (NotDetected) Stl Shigella/EIEC PCR (NotDetected) St Y.enterocolitica PCR (NotDetected) Stool Vibrio (PCR) (NotDetected) Stl Vibrio cholerae PCR (NotDetected) Stl Norovirus GI/GII PCR (NotDetected) SARS-CoV-2 (PCR) (Negative) Influenza Type A (PCR) (Neg) Influenza Type B (PCR) (Neg) RSV (RT-PCR) (Neg) 03/07/24 03/07/24 03/07/24 Range/Units 16:46 16:42 16:11 WBC (4.8-10.8) K/ul RBC (4.70-6.10) M/uL Hgb (14.0-18.0) g/dl Hct (42.0-52.0) % MCV (80.0-100.0) fL MCH (25.0-34.0) pg MCHC (32.0-36.0) g/dL RDW Std Deviation (36.4-46.3) fL RDW Coeff of Aleyda (11.5-14.5) % Plt Count (130-400) K/uL MPV (9.4-12.4) fL Immature Gran % (Auto) % Neut % (Auto) % Lymph % (Auto) % [place] % (Auto) % Eos % (Auto) % Baso % (Auto) % Neut # (Auto) (1.40-6.50) K/uL Lymph # (Auto) (1.20-3.40) K/uL [place] # (Auto) (0.11-0.59) K/uL Eos # (Auto) (0.00-0.50) K/uL Baso # (Auto) (0.00-0.20) K/uL Immature Gran # (Auto) (0.01-0.20) K/uL PT (9.0-12.0) Seconds INR (0.9-1.1) APTT (21-31) Seconds PTT Ratio VBG pH 7.35 L (7.36-7.41) VBG pCO2 37 L (38-50) mmHg VBG pO2 81 mmHg VBG HCO3 20 mmol/L VBG O2 Saturation 97.4 % VBG Base Excess -4.7 mEq/L Sodium (136-145) mmol/L Potassium (3.5-5.1) mmol/L Chloride (98-107) mmol/L Carbon Dioxide (21-32) mmol/L Anion Gap (3-11) BUN (6-23) mg/dl Creatinine (0.6-1.4) mg/dl Est Cr Clr Drug Dosing ml/min Est GFR ( Amer) ml/min Est GFR (Non-Af Amer) ml/min BUN/Creatinine Ratio (10-20) Glucose (70-99(Fasting)) mg/dl POC Glucose (70-99) mg/dl Estimat Average Glucose mg/dl Hemoglobin A1c (4.5-5.6) % Lactate 4.3 H* Cancelled (0.4-2.0) mmol/L Calcium (8.6-10.3) mg/dl Magnesium (1.7-2.4) mg/dl Total Bilirubin (0.2-1.0) mg/dl Direct Bilirubin (0-0.2) mg/dl AST (13-39) U/L ALT (7-52) U/L Alkaline Phosphatase (34-104) U/L Troponin I High Sens (0-20) pg/ml Total Protein (6.0-8.3) gm/dl Albumin (3.4-5.0) gm/dl Globulin (2.5-4.0) gm/dl Albumin/Globulin Ratio (0.9-2) Procalcitonin (0-0.5) ng/ml Random Cortisol mcg/dl Urine Color Urine Appearance (Clear) Urine pH (4.5-7.5) Ur Specific [place] (1.000-1.030) Urine Protein (Negative) Urine Glucose (UA) (Negative) Urine Ketones (Negative) Urine Blood (Negative) Urine Nitrite (Negative) Urine Bilirubin (Negative) Urine Urobilinogen (Negative) Ur Leukocyte Esterase (Negative) Urine WBC (Auto) (0-5) /hpf Urine RBC (Auto) (0-2) /hpf U Hyaline Cast (Auto) (0-2) /lpf U Epithel Cells (Auto) (0-2) /hpf Urine Bacteria (Auto) (None Seen) Nasal Screen MRSA (PCR) (Negative) Stl C. cayetanensis PCR (NotDetected) Stool Rotavirus A PCR (NotDetected) Stl Adenov F 40/41 PCR (NotDetected) Stool Astrovirus (PCR) (NotDetected) Stool Campylobacter PCR (NotDetected) Stl C. diff Tox B Gene (Neg) Stool Cryptosporidium PCR (NotDetected) Stl E.coli Shiga Tox PCR (NotDetected) Stl Enterotoxigenic E PCR (NotDetected) Stool EPEC (PCR) (NotDetected) Stool EAEC (PCR) (NotDetected) Stl E. histolytica PCR (NotDetected) Stool Giardia Lamblia PCR (NotDetected) Stool Salmonella PCR (NotDetected) Stool Sapovirus (PCR) (NotDetected) Stl P. shigelloides PCR (NotDetected) Stl Shigella/EIEC PCR (NotDetected) St Y.enterocolitica PCR (NotDetected) Stool Vibrio (PCR) (NotDetected) Stl Vibrio cholerae PCR (NotDetected) Stl Norovirus GI/GII PCR (NotDetected) SARS-CoV-2 (PCR) (Negative) Influenza Type A (PCR) (Neg) Influenza Type B (PCR) (Neg) RSV (RT-PCR) (Neg) 03/07/24 03/07/24 03/07/24 Range/Units 14:38 14:25 14:08 WBC 14.41 H (4.8-10.8) K/ul RBC 4.30 L (4.70-6.10) M/uL Hgb 12.8 L (14.0-18.0) g/dl Hct 38.5 L (42.0-52.0) % MCV 89.5 (80.0-100.0) fL MCH 29.8 (25.0-34.0) pg MCHC 33.2 (32.0-36.0) g/dL RDW Std Deviation 44.1 (36.4-46.3) fL RDW Coeff of Aleyda 13.6 (11.5-14.5) % Plt Count 296 (130-400) K/uL MPV 10.7 (9.4-12.4) fL Immature Gran % (Auto) 0.5 % Neut % (Auto) 85.8 % Lymph % (Auto) 10.3 % [place] % (Auto) 3.1 % Eos % (Auto) 0.1 % Baso % (Auto) 0.2 % Neut # (Auto) 12.35 H (1.40-6.50) K/uL Lymph # (Auto) 1.49 (1.20-3.40) K/uL [place] # (Auto) 0.45 (0.11-0.59) K/uL Eos # (Auto) 0.02 (0.00-0.50) K/uL Baso # (Auto) 0.03 (0.00-0.20) K/uL Immature Gran # (Auto) 0.07 (0.01-0.20) K/uL PT 11.7 (9.0-12.0) Seconds INR 1.1 (0.9-1.1) APTT 24 (21-31) Seconds PTT Ratio 0.9 VBG pH 7.18 L (7.36-7.41) VBG pCO2 63 H (38-50) mmHg VBG pO2 21 mmHg VBG HCO3 24 mmol/L VBG O2 Saturation < 60.0 % VBG Base Excess -5.9 mEq/L Sodium 140 (136-145) mmol/L Potassium 3.6 (3.5-5.1) mmol/L Chloride 103 (98-107) mmol/L Carbon Dioxide 24 (21-32) mmol/L Anion Gap 13 H (3-11) BUN 23 (6-23) mg/dl Creatinine 1.62 H (0.6-1.4) mg/dl Est Cr Clr Drug Dosing 42.3 ml/min Est GFR ( Amer) 45.8 ml/min Est GFR (Non-Af Amer) 39.5 ml/min BUN/Creatinine Ratio 14.2 (10-20) Glucose 211 H (70-99(Fasting)) mg/dl POC Glucose (70-99) mg/dl Estimat Average Glucose mg/dl Hemoglobin A1c (4.5-5.6) % Lactate 6.1 H* (0.4-2.0) mmol/L Calcium 9.6 (8.6-10.3) mg/dl Magnesium 2.4 (1.7-2.4) mg/dl Total Bilirubin 0.5 (0.2-1.0) mg/dl Direct Bilirubin 0.1 (0-0.2) mg/dl AST 25 (13-39) U/L ALT 13 (7-52) U/L Alkaline Phosphatase 90 (34-104) U/L Troponin I High Sens 17.1 (0-20) pg/ml Total Protein 7.7 (6.0-8.3) gm/dl Albumin 3.9 (3.4-5.0) gm/dl Globulin (2.5-4.0) gm/dl Albumin/Globulin Ratio (0.9-2) Procalcitonin 0.03 (0-0.5) ng/ml Random Cortisol 38.43 mcg/dl Urine Color Urine Appearance (Clear) Urine pH (4.5-7.5) Ur Specific [place] (1.000-1.030) Urine Protein (Negative) Urine Glucose (UA) (Negative) Urine Ketones (Negative) Urine Blood (Negative) Urine Nitrite (Negative) Urine Bilirubin (Negative) Urine Urobilinogen (Negative) Ur Leukocyte Esterase (Negative) Urine WBC (Auto) (0-5) /hpf Urine RBC (Auto) (0-2) /hpf U Hyaline Cast (Auto) (0-2) /lpf U Epithel Cells (Auto) (0-2) /hpf Urine Bacteria (Auto) (None Seen) Nasal Screen MRSA (PCR) (Negative) Stl C. cayetanensis PCR (NotDetected) Stool Rotavirus A PCR (NotDetected) Stl Adenov F 40/41 PCR (NotDetected) Stool Astrovirus (PCR) (NotDetected) Stool Campylobacter PCR (NotDetected) Stl C. diff Tox B Gene (Neg) Stool Cryptosporidium PCR (NotDetected) Stl E.coli Shiga Tox PCR (NotDetected) Stl Enterotoxigenic E PCR (NotDetected) Stool EPEC (PCR) (NotDetected) Stool EAEC (PCR) (NotDetected) Stl E. histolytica PCR (NotDetected) Stool Giardia Lamblia PCR (NotDetected) Stool Salmonella PCR (NotDetected) Stool Sapovirus (PCR) (NotDetected) Stl P. shigelloides PCR (NotDetected) Stl Shigella/EIEC PCR (NotDetected) St Y.enterocolitica PCR (NotDetected) Stool Vibrio (PCR) (NotDetected) Stl Vibrio cholerae PCR (NotDetected) Stl Norovirus GI/GII PCR (NotDetected) SARS-CoV-2 (PCR) NEGATIVE (Negative) Influenza Type A (PCR) Negative (Neg) Influenza Type B (PCR) Negative (Neg) RSV (RT-PCR) Negative (Neg) 03/07/24 Range/Units 14:07 WBC (4.8-10.8) K/ul RBC (4.70-6.10) M/uL Hgb (14.0-18.0) g/dl Hct (42.0-52.0) % MCV (80.0-100.0) fL MCH (25.0-34.0) pg MCHC (32.0-36.0) g/dL RDW Std Deviation (36.4-46.3) fL RDW Coeff of Aleyda (11.5-14.5) % Plt Count (130-400) K/uL MPV (9.4-12.4) fL Immature Gran % (Auto) % Neut % (Auto) % Lymph % (Auto) % [place] % (Auto) % Eos % (Auto) % Baso % (Auto) % Neut # (Auto) (1.40-6.50) K/uL Lymph # (Auto) (1.20-3.40) K/uL [place] # (Auto) (0.11-0.59) K/uL Eos # (Auto) (0.00-0.50) K/uL Baso # (Auto) (0.00-0.20) K/uL Immature Gran # (Auto) (0.01-0.20) K/uL PT (9.0-12.0) Seconds INR (0.9-1.1) APTT (21-31) Seconds PTT Ratio VBG pH (7.36-7.41) VBG pCO2 (38-50) mmHg VBG pO2 mmHg VBG HCO3 mmol/L VBG O2 Saturation % VBG Base Excess mEq/L Sodium (136-145) mmol/L Potassium (3.5-5.1) mmol/L Chloride (98-107) mmol/L Carbon Dioxide (21-32) mmol/L Anion Gap (3-11) BUN (6-23) mg/dl Creatinine (0.6-1.4) mg/dl Est Cr Clr Drug Dosing ml/min Est GFR ( Amer) ml/min Est GFR (Non-Af Amer) ml/min BUN/Creatinine Ratio (10-20) Glucose (70-99(Fasting)) mg/dl POC Glucose (70-99) mg/dl Estimat Average Glucose mg/dl Hemoglobin A1c (4.5-5.6) % Lactate (0.4-2.0) mmol/L Calcium (8.6-10.3) mg/dl Magnesium (1.7-2.4) mg/dl Total Bilirubin (0.2-1.0) mg/dl Direct Bilirubin (0-0.2) mg/dl AST (13-39) U/L ALT (7-52) U/L Alkaline Phosphatase (34-104) U/L Troponin I High Sens (0-20) pg/ml Total Protein (6.0-8.3) gm/dl Albumin (3.4-5.0) gm/dl Globulin (2.5-4.0) gm/dl Albumin/Globulin Ratio (0.9-2) Procalcitonin (0-0.5) ng/ml Random Cortisol mcg/dl Urine Color Yellow Urine Appearance Clear (Clear) Urine pH 8.0 H (4.5-7.5) Ur Specific [place] 1.011 (1.000-1.030) Urine Protein Trace H (Negative) Urine Glucose (UA) Negative (Negative) Urine Ketones Negative (Negative) Urine Blood Negative (Negative) Urine Nitrite Negative (Negative) Urine Bilirubin Negative (Negative) Urine Urobilinogen Negative (Negative) Ur Leukocyte Esterase Negative (Negative) Urine WBC (Auto) 0-5 (0-5) /hpf Urine RBC (Auto) 0-2 (0-2) /hpf U Hyaline Cast (Auto) 0-2 (0-2) /lpf U Epithel Cells (Auto) 0-2 (0-2) /hpf Urine Bacteria (Auto) None Seen (None Seen) Nasal Screen MRSA (PCR) (Negative) Stl C. cayetanensis PCR (NotDetected) Stool Rotavirus A PCR (NotDetected) Stl Adenov F 40/41 PCR (NotDetected) Stool Astrovirus (PCR) (NotDetected) Stool Campylobacter PCR (NotDetected) Stl C. diff Tox B Gene (Neg) Stool Cryptosporidium PCR (NotDetected) Stl E.coli Shiga Tox PCR (NotDetected) Stl Enterotoxigenic E PCR (NotDetected) Stool EPEC (PCR) (NotDetected) Stool EAEC (PCR) (NotDetected) Stl E. histolytica PCR (NotDetected) Stool Giardia Lamblia PCR (NotDetected) Stool Salmonella PCR (NotDetected) Stool Sapovirus (PCR) (NotDetected) Stl P. shigelloides PCR (NotDetected) Stl Shigella/EIEC PCR (NotDetected) St Y.enterocolitica PCR (NotDetected) Stool Vibrio (PCR) (NotDetected) Stl Vibrio cholerae PCR (NotDetected) Stl Norovirus GI/GII PCR (NotDetected) SARS-CoV-2 (PCR) (Negative) Influenza Type A (PCR) (Neg) Influenza Type B (PCR) (Neg) RSV (RT-PCR) (Neg) Diagnostic Findings CT abd pelvis IV con only CLINICAL HISTORY: sepsis TECHNIQUE: Helical axial images of the abdomen and pelvis were obtained and displayed. Automated dose lowering techniques and/or adjustment according to patient size were utilized for this exam. This exam was performed with intravenous contrast. CT DOSE: 2686.66 mGy.cm COMPARISON: Comparison is made to CT abdomen pelvis 10/25/2023 FINDINGS: Lower chest: Bibasilar atelectasis versus scarring is seen. Liver: Unremarkable. No focal lesions are seen. Gallbladder and biliary tree: Patient is status post cholecystectomy. Physiologic prominence of the biliary ducts is noted. Partial visualization of prominent segment 7 intrahepatic biliary ducts, similar to prior exam. Pancreas: Unremarkable, no focal lesions. Spleen: Unremarkable. Adrenals: Right adrenal lesion likely represents adenoma. Kidneys and ureters: There is a complex appearing right upper lobe lesion measuring 23 mm in diameter, similar to prior exam. Bladder: Limited evaluation due to underdistention. Reproductive organs: Unremarkable. Bowel: Large stool burden is again seen in the rectum. A small hiatal hernia is seen. Lymph nodes Retroperitoneal: Unremarkable. Pelvic: Unremarkable. Mesenteric: Unremarkable. Peritoneum: Normal. Vessels: Atherosclerotic calcifications are seen. Abdominal wall: Unremarkable. Bones: Degenerative changes in the visualized spine. Right hip arthroplasty is seen. IMPRESSION: 1. No acute abnormalities are seen to explain sepsis. There is prominent stool burden in the rectum without robert wall thickening to suggest stercoral colitis. 2. Interval stability of enhancing lesion in the right kidney superior pole which is again concerning for renal cell carcinoma. 3. Additional findings as above. ACT 112: Negative or not required by law. Electronically signed by: Colin Wood M.D. 03/07/2024 4:03 PM
--- NOTE | 2024-03-08 14:43 | Hospitalist Progress Note ---
Date of Service March 08, 2024 Assessment & Plan (1) SIRS (systemic inflammatory response syndrome): (2) Constipation: (3) Fever: (4) Leukocytosis: (5) Adrenal adenoma: (6) BPH (benign prostatic hyperplasia): (7) HLD (hyperlipidemia): (8) Depression: (9) Renal mass: (10) Diabetes: (11) HTN (hypertension): Plan Assessment and plan: Sepsis of unknown origin: Lactic acidosis Hypotension, tachycardia with fever and high lactic acid on arrival Likely intra-abdominal cause of sepsis and could be developing diverticulitis CT of the abdomen and pelvis documented to have stercolar Colitis Has been getting intravenous Zosyn and daptomycin stool culture has been negative for C. difficile Blood cultures were taken He has been feeling little better since admission ABRAM: Hypotensive and tachycardic on arrival, febrilenow improved Creatinine elevated 1.62, likely secondary to sepsis, Daily CMP has been receiving intravenous fluid Will monitor PRP Constipation: Vomiting bile on exam, reports last bowel movement was 4 days ago Dulcolax suppositories ordered, clear liquid diet Hx DM2: Check A1c, SSI/QID BGM Add Lantus as needed Hx HTN: Hold lisinopril, continue metoprolol with hold parameters Hx HLD: Hold atorvastatin with lactic acidosis Full code DVT prophylaxis: Heparin subcu Admission and Anticipated Discharge Date Admission Date: March 07, 2024 Subjective 03/08/2024 The patient was seen and examined in telemetry unit He has been feeling a little better but is still complains significant abdominal pain Denies any distention or nausea Has been having loose stools without any fever and/or chills Review of Systems Review of Systems: all systems reviewed and are unremarkable except as noted below Physical Exam Physical Exam: lying in bed with acute distress due to abdominal pain Constitutional: + ill appearing and average body habitus Eyes: PERRL, conjunctivae normal, anicteric sclerae ENMT: external ear and nose normal, oropharynx normal Neck: trachea midline, no thyromegaly Respiratory: no respiratory distress Auscultation: lungs clear to auscultation bilaterally Cardiovascular: Rate/Rhythm: regular rate and regular rhythm; not tachycardic Heart Sounds: normal S1 and normal S2; no murmur Extremities: no edema Gastrointestinal (Abdomen): Inspection/Auscultation: normal bowel sounds; abdomen not distended Percussion/Palpation: + abdomen tender ( tender to palpate mainly lower quadrants without guarding and/or rigidity) Musculoskeletal: no acute arthritis involving any of the joint Neurologic: normal touch/pain/proprioception and moves all extremities; no focal motor deficits Lymphatic: no cervical or axillary lymphadenopathy Results & Data Results & Data Vital Signs (Past 12 Hours) Vital Signs Temp Pulse Pulse Resp BP Pulse Ox O2 Del Method 03/08/24 10:55 37.0 C 74 19 119/68 96 Room Air 03/08/24 07:23 36.9 C 84 19 113/64 96 Room Air 03/08/24 07:15 88 03/08/24 04:26 88 Laboratory Results Short CBC 03/08/24 Range/Units 07:27 WBC 15.23 H (4.8-10.8) K/ul Hgb 12.9 L (14.0-18.0) g/dl Hct 38.6 L (42.0-52.0) % Plt Count 203 (130-400) K/uL BMP 03/07/24 03/08/24 14:08 07:27 Sodium 140 138 Potassium 3.6 4.4 D Chloride 103 106 Carbon Dioxide 24 22 BUN 23 29 H Creatinine 1.62 H 1.38 Glucose 211 H 168 H Calcium 9.6 8.5 L Liver Function 03/07/24 03/08/24 Range/Units 14:08 07:27 Total Bilirubin 0.5 0.7 (0.2-1.0) mg/dl Direct Bilirubin 0.1 (0-0.2) mg/dl AST 25 46 H (13-39) U/L ALT 13 22 (7-52) U/L Alkaline Phosphatase 90 67 (34-104) U/L Albumin 3.9 3.5 (3.4-5.0) gm/dl Urine 03/07/24 Range/Units 14:07 Urine Color Yellow Urine Appearance Clear (Clear) Urine pH 8.0 H (4.5-7.5) Ur Specific [place] 1.011 (1.000-1.030) Urine Protein Trace H (Negative) Urine Glucose (UA) Negative (Negative) Medications Administered Current Inpatient Medications Bisacodyl (Bisacodyl 10 Mg Supp) 10 mg SC DAILY PRN PRN Reason: Constipation Stop: 04/06/24 18:38 Dextrose (Dextrose 50% 50 Ml Syringe) 25 - 50 ml IV UD PRN; Protocol PRN Reason: Hypoglycemia Protocol Stop: 04/06/24 18:38 Finasteride (Finasteride 5 Mg Tab) 5 mg PO DAILY [facility] Stop: 04/07/24 08:59 Last Admin: 03/08/24 08:08 Dose: 5 mg Glucagon (Glucagon For Inj 1 Mg Vial) 1 mg SQ UD PRN; Protocol PRN Reason: Hypoglycemia Protocol Stop: 04/06/24 18:38 Glucose (Glucose 40% Gel 15 Gm Tube) 15 - 30 gm PO UD PRN; Protocol PRN Reason: Hypoglycemia Protocol Stop: 04/06/24 18:38 Glucose (Glucose 10 Tab/Tube) 4 - 8 tab PO UD PRN; Protocol PRN Reason: Hypoglycemia Treatment Stop: 04/06/24 18:38 Heparin Sodium (Porcine) (Heparin Sod 5,000 Unit/0.5 Ml Vial) 5,000 units SQ Q12 [facility] Stop: 04/06/24 20:59 Last Admin: 03/08/24 08:11 Dose: Not Given Daptomycin 325 mg/ Syringe 6.5 mls @ 3.25 mls/min IV Q24H [facility]; Protocol Stop: 03/09/24 18:59 Last Admin: 03/07/24 19:44 Dose: 3.25 mls/min Piperacillin Sod/Tazobactam Sod (Zosyn) 4.5 gm in 100 mls @ 25 mls/hr IV Q8H [facility] Stop: 03/09/24 19:59 Last Admin: 03/08/24 11:54 Dose: 25 mls/hr Acetaminophen (Ofirmev) 1,000 mg in 100 mls @ 400 mls/hr IV Q8H PRN PRN Reason: Pain or Fever Stop: 03/10/24 18:52 Last Infusion: 03/07/24 20:11 Dose: Infused Insulin Aspart (Insulin Aspart Per Unit Charge) 0 units SC ACHS [facility] Stop: 04/06/24 20:59 Last Admin: 03/08/24 11:34 Dose: Not Given Metoprolol Succinate (Metoprolol Succ 25mg Ext Rel Tab) 12.5 mg PO QAM [facility] Stop: 04/07/24 08:59 Last Admin: 03/08/24 08:08 Dose: 12.5 mg Miscellaneous (Carbohydrates For Hypoglycemia ) 15 - 30 gm PO UD PRN PRN Reason: Hypoglycemia Protocol Stop: 04/06/24 18:38 Polyethylene Glycol (Polyethylene (Miralax) 17 Gm Pack) 17 gm PO DAILY PRN PRN Reason: Constipation Stop: 04/06/24 19:25 (2) Constipation Constipation type: unspecified constipation type Qualified Code(s): K59.00 - Constipation, unspecified (3) Fever Fever type: unspecified Qualified Code(s): R50.9 - Fever, unspecified (4) Leukocytosis Leukocytosis type: unspecified Qualified Code(s): D72.829 - Elevated white blood cell count, unspecified
--- NOTE | 2024-03-08 23:01 | Electrocardiogram Report ---
Test Reason : Blood Pressure : */* mmHG Vent. Rate : 85 BPM Atrial Rate : 85 BPM P-R Int : 218 ms QRS Dur : 144 ms QT Int : 410 ms P-R-T Axes : 58 -22 31 degrees QTcB Int : 487 ms Sinus rhythm with 1st degree A-V block Right bundle branch block Septal infarct , age undetermined Abnormal ECG When compared with ECG of 07-Mar-2024 13:50, Vent. rate has increased by 28 bpm Right bundle branch block is now Present Septal infarct is now Present Confirmed by Yosef Hui ([id number]) on 03/08/2024 11:01:21 PM Referred By: REFERRED SELF Confirmed By: Yosef Hui
--- NOTE | 2024-03-09 05:10 | Surgery Progress Note ---
Date of Service March 09, 2024 Assessment & Plan (1) Acute constipation: Plan: Patient has been admitted on the hospitalist service CT scan at time of admission did not show any acute findings in the abdomen other than a heavy stool burden Patient has had improvement of his abdominal exam with bowel movements No surgical issues noted at this time Check a.m. labs when available Admission and Anticipated Discharge Date Admission Date: March 07, 2024 Supervising Physician Co-Signing Physician Notes I have seen and examined this patient. I agree with the above assessment. The patient has remained afebrile overnight, HD stable and reports having some stool last night. He also admits to flatus. Denies nausea. He is currently on clear liquids. May increase diet as tolerated and have a bowel regimen. No current surgical intervention Subjective Patient is resting comfortably in bed. He does note continued abdominal pain with palpation. I discussed with nursing staff and patient did have multiple bowel movements which seem to improve his abdominal exam. Physical Exam Gastrointestinal (Abdomen): Abdomen is soft without distention. Patient does have pain with palpation but there is no rebound tenderness or guarding Results & Data Vital Signs (Past 12 Hours) Vital Signs Temp Pulse Pulse Resp BP Pulse Ox O2 Del Method 03/09/24 02:52 37.1 C 77 18 122/64 95 Room Air 03/08/24 23:25 37.2 C 78 18 111/62 97 Room Air 03/08/24 21:48 74 03/08/24 19:37 37 C 75 16 108/63 97 Room Air PG Care Time/CCT Total # of Minutes Spent Total Time Spent with Patient: Total time spent is greater than 50% in coordination of care (as documented) at patient's floor/unit and/or counseling patient: Coding Level of Care Code 07801 SUB INP/OBS CARE 07/06MIN Diagnoses Acute constipation K59.00
[2024-03-09 06:43] LABS: Basophils # (auto) 0.02 K/uL (0.00-0.20); Basophils % (auto) 0.2 %; Eosinophils # (auto) 0.02 K/uL (0.00-0.50); Eosinophils % (auto) 0.2 %; Hematocrit (blood only) 32.1 % (42.0-52.0); Hemoglobin 10.8 g/dl (14.0-18.0); Immature Granulocytes # (auto) 0.02 K/uL (0.01-0.20); Immature Granulocytes % (auto) 0.2 %; Lymphocytes # (auto) 1.38 K/uL (1.20-3.40); Lymphocytes % (auto) 14.8 %; Mean Corpuscular Hemoglobin 29.8 pg (25.0-34.0); Mean Corpuscular Hgb Conc 33.6 g/dL (32.0-36.0); Mean Corpuscular Volume 88.4 fL (80.0-100.0); Mean Platelet Volume 11.3 fL (9.4-12.4); Monocytes # (auto) 0.78 K/uL (0.11-0.59); Monocytes % (auto) 8.4 %; Neutrophils % (auto) 76.2 %; Platelet Count 178 K/uL (130-400); RDW Coefficient of Variation 13.8 % (11.5-14.5); RDW Standard Deviation 44.6 fL (36.4-46.3); Red Blood Count 3.63 M/uL (4.70-6.10); White Blood Count 9.32 K/ul (4.8-10.8)
[2024-03-09 07:19] LABS: BUN Creatinine Ratio 30.1 (10-20); Calcium 8.1 mg/dl (8.6-10.3); Creatinine Clr Calc Pharmacy 73.7 ml/min; Est GFR (African American) 89.5 ml/min; Est GFR (Non-African American) 77.3 ml/min; Magnesium 2.1 mg/dl (1.7-2.4); Phosphorus 1.7 mg/dl (2.5-4.9); Potassium 3.5 mmol/L (3.5-5.1)
[2024-03-09] MEDS ORDERED: POTASSIUM PHOS 3 MMOL/1 ML INFUSION IV STA (08:42)
[2024-03-09] MEDS: POTASSIUM PHOSPHATE 30 MMOL in SODIUM CHLORIDE 0.9% 500 ML IV ONE (09:35)
--- NOTE | 2024-03-09 12:15 | Electrocardiogram Report ---
Test Reason : Blood Pressure : */* mmHG Vent. Rate : 78 BPM Atrial Rate : 78 BPM P-R Int : 174 ms QRS Dur : 136 ms QT Int : 416 ms P-R-T Axes : 52 -25 33 degrees QTcB Int : 474 ms Sinus rhythm with occasional Premature ventricular complexes Low voltage QRS limb leads Right bundle branch block Septal infarct (cited on or before 08-Mar-2024) Abnormal ECG When compared with ECG of 08-Mar-2024 05:42, Premature ventricular complexes are now Present ID interval has decreased Confirmed by Lillian Bella (Goran) on 03/09/2024 9:43:57 AM Referred By: REFERRED SELF Confirmed By: Lillian Bella
--- NOTE | 2024-03-09 14:47 | Hospitalist Progress Note ---
Date of Service March 09, 2024 Assessment & Plan (1) SIRS (systemic inflammatory response syndrome): (2) Constipation: (3) Fever: (4) Leukocytosis: (5) Adrenal adenoma: (6) BPH (benign prostatic hyperplasia): (7) HLD (hyperlipidemia): (8) Depression: (9) Renal mass: (10) Diabetes: (11) HTN (hypertension): Plan Assessment and plan: Sepsis of unknown origin: Lactic acidosis Hypotension, tachycardia with fever and high lactic acid on arrival Likely intra-abdominal cause of sepsis and could be developing diverticulitis CT of the abdomen and pelvis documented to have stercolar Colitis Has been getting intravenous Zosyn and daptomycin stool culture has been negative for C. difficile Blood cultures were taken- have been negative He has been feeling little better since admission Clinically better, still has some abdominal discomfort Will continue current intravenous antibiotic and also fluid for now ABRAM: Hypotensive and tachycardic on arrival, febrilenow improved Creatinine elevated 1.62, likely secondary to sepsis, Daily CMP has been receiving intravenous fluid noted to have mildly hypokalemic and also hypophosphatemic Will supplement and monitor Constipation: Vomiting bile on exam, reports last bowel movement was 4 days ago Dulcolax suppositories ordered, clear liquid diet - bowel movement Hx DM2: Check A1c, SSI/QID BGM Add Lantus as needed Hx HTN: Hold lisinopril, continue metoprolol with hold parameters Hx HLD: Hold atorvastatin with lactic acidosis Full code DVT prophylaxis: Heparin subcu Admission and Anticipated Discharge Date Admission Date: March 07, 2024 Subjective 03/08/2024 The patient was seen and examined in telemetry unit He has been feeling a little better but is still complains significant abdominal pain Denies any distention or nausea Has been having loose stools without any fever and/or chills 03/09/2024 The patient was seen and examined in telemetry unit He has been feeling better with decreasing abdominal pain Denies any nausea or vomiting and he is still afraid to eat Review of Systems Review of Systems: all systems reviewed and are unremarkable except as noted below Physical Exam Physical Exam: lying in bed with acute distress due to abdominal pain Constitutional: + ill appearing and average body habitus Eyes: PERRL, conjunctivae normal, anicteric sclerae ENMT: external ear and nose normal, oropharynx normal Neck: trachea midline, no thyromegaly Respiratory: no respiratory distress Auscultation: lungs clear to auscultation bilaterally Cardiovascular: Rate/Rhythm: regular rate and regular rhythm; not tachycardic Heart Sounds: normal S1 and normal S2; no murmur Extremities: no edema Gastrointestinal (Abdomen): Inspection/Auscultation: normal bowel sounds; abdomen not distended Percussion/Palpation: + abdomen tender ( tenderness has diminished and no guarding); no guarding and abdomen not rigid Neurologic: normal touch/pain/proprioception and moves all extremities; no focal motor deficits Lymphatic: no cervical or axillary lymphadenopathy Results & Data Results & Data Vital Signs (Past 12 Hours) Vital Signs Temp Pulse Pulse Resp BP Pulse Ox O2 Del Method 03/09/24 10:58 37.0 C 48 L 19 107/41 L 95 Room Air 03/09/24 08:00 74 03/09/24 07:12 36.9 C 72 19 127/61 95 Room Air 03/09/24 02:52 37.1 C 77 18 122/64 95 Room Air Laboratory Results Short CBC 03/09/24 Range/Units 05:35 WBC 9.32 (4.8-10.8) K/ul Hgb 10.8 L (14.0-18.0) g/dl Hct 32.1 L (42.0-52.0) % Plt Count 178 (130-400) K/uL BMP 03/09/24 05:35 Sodium 138 Potassium 3.5 D Chloride 108 H Carbon Dioxide 23 BUN 28 H Creatinine 0.93 D Glucose 101 H Calcium 8.1 L Medications Administered Current Inpatient Medications Bisacodyl (Bisacodyl 10 Mg Supp) 10 mg HI DAILY PRN PRN Reason: Constipation Stop: 04/06/24 18:38 Dextrose (Dextrose 50% 50 Ml Syringe) 25 - 50 ml IV UD PRN; Protocol PRN Reason: Hypoglycemia Protocol Stop: 04/06/24 18:38 Finasteride (Finasteride 5 Mg Tab) 5 mg PO DAILY [facility] Stop: 04/07/24 08:59 Last Admin: 03/09/24 08:35 Dose: 5 mg Glucagon (Glucagon For Inj 1 Mg Vial) 1 mg SQ UD PRN; Protocol PRN Reason: Hypoglycemia Protocol Stop: 04/06/24 18:38 Glucose (Glucose 40% Gel 15 Gm Tube) 15 - 30 gm PO UD PRN; Protocol PRN Reason: Hypoglycemia Protocol Stop: 04/06/24 18:38 Glucose (Glucose 10 Tab/Tube) 4 - 8 tab PO UD PRN; Protocol PRN Reason: Hypoglycemia Treatment Stop: 04/06/24 18:38 Heparin Sodium (Porcine) (Heparin Sod 5,000 Unit/0.5 Ml Vial) 5,000 units SQ Q12 [facility] Stop: 04/06/24 20:59 Last Admin: 03/09/24 08:36 Dose: Not Given Daptomycin 325 mg/ Syringe 6.5 mls @ 3.25 mls/min IV Q24H [facility]; Protocol Stop: 03/09/24 18:59 Last Admin: 03/08/24 19:41 Dose: 3.25 mls/min Piperacillin Sod/Tazobactam Sod (Zosyn) 4.5 gm in 100 mls @ 25 mls/hr IV Q8H [facility] Stop: 03/09/24 19:59 Last Infusion: 03/09/24 08:35 Dose: Infused Acetaminophen (Ofirmev) 1,000 mg in 100 mls @ 400 mls/hr IV Q8H PRN PRN Reason: Pain or Fever Stop: 03/10/24 18:52 Last Infusion: 03/07/24 20:11 Dose: Infused Potassium Phosphate 30 mmol/ (Sodium Chloride) 510 mls @ 88 mls/hr IV ONE ONE Stop: 03/09/24 14:47 Last Admin: 03/09/24 09:35 Dose: 88 mls/hr Lactated Ringer's (Lr) 1,000 mls @ 80 mls/hr IV .[id number] [facility] Stop: 03/11/24 02:14 Insulin Aspart (Insulin Aspart Per Unit Charge) 0 units SC ACHS [facility] Stop: 04/06/24 20:59 Last Admin: 03/09/24 11:51 Dose: Not Given Metoprolol Succinate (Metoprolol Succ 25mg Ext Rel Tab) 12.5 mg PO QAM [facility] Stop: 04/07/24 08:59 Last Admin: 03/09/24 08:35 Dose: 12.5 mg Miscellaneous (Carbohydrates For Hypoglycemia ) 15 - 30 gm PO UD PRN PRN Reason: Hypoglycemia Protocol Stop: 04/06/24 18:38 Polyethylene Glycol (Polyethylene (Miralax) 17 Gm Pack) 17 gm PO DAILY PRN PRN Reason: Constipation Stop: 04/06/24 19:25 (2) Constipation Constipation type: unspecified constipation type Qualified Code(s): K59.00 - Constipation, unspecified (3) Fever Fever type: unspecified Qualified Code(s): R50.9 - Fever, unspecified (4) Leukocytosis Leukocytosis type: unspecified Qualified Code(s): D72.829 - Elevated white blood cell count, unspecified
[2024-03-09] MEDS: LACTATED RINGER'S 1,000 ML IV SCH (18:27)
--- NOTE | 2024-03-10 04:57 | Surgery Progress Note ---
Date of Service March 10, 2024 Assessment & Plan (1) Acute constipation: Plan: Patient has been admitted on the hospitalist service CT scan at time of admission (did not show any acute findings in the abdomen other than a heavy stool burden Continued improvement of abdominal exam has been noted No surgical issues noted at this time Check a.m. labs when available Admission and Anticipated Discharge Date Admission Date: March 07, 2024 Supervising Physician Co-Signing Physician Notes I have seen and examined this patient this am. He has decreased abdominal pain and had a substantial bowel movement. He tolerates clear liquids and his diet may be advanced as tolerated. Continue with a bowel regimen to clear stool from colon and discharge when medically stable on a bowel regimen. Surgery will sign off at this time. Please re-consult the surgical service if needed. Subjective Patient is resting comfortably in bed. He notes that his abdominal pain that was present at time of admission has improved. He denies any nausea or v omiting. He has had a bowel movement over the past shift. I discussed with the nurse attending to the patient and she verified the above information and notes that there are no surgical issues at this time. Physical Exam Gastrointestinal (Abdomen): Abdomen is soft and nondistended. There is no rigidity. Patient did have some generalized pain with palpation without rebound tenderness or guarding. The amount of pain noted with palpation did appear to be somewhat improved from yesterday's exam. Results & Data Vital Signs (Past 12 Hours) Vital Signs Temp Pulse Pulse Resp BP Pulse Ox O2 Del Method 03/10/24 02:43 36.8 C 63 18 137/71 95 Room Air 03/09/24 22:30 36.6 C 63 18 129/70 96 Room Air 03/09/24 21:49 65 03/09/24 19:01 36.6 C 65 19 108/65 98 Room Air PG Care Time/CCT Total # of Minutes Spent Total Time Spent with Patient: Total time spent is greater than 50% in coordination of care (as documented) at patient's floor/unit and/or counseling patient: Coding Level of Care Code 91850 SUB INP/OBS CARE 07/06MIN Diagnoses Acute constipation K59.00
[2024-03-10 07:16] LABS: Basophils # (auto) 0.02 K/uL (0.00-0.20); Basophils % (auto) 0.3 %; Eosinophils # (auto) 0.08 K/uL (0.00-0.50); Eosinophils % (auto) 1.2 %; Hematocrit (blood only) 31.2 % (42.0-52.0); Hemoglobin 10.7 g/dl (14.0-18.0); Immature Granulocytes # (auto) 0.02 K/uL (0.01-0.20); Immature Granulocytes % (auto) 0.3 %; Lymphocytes # (auto) 1.48 K/uL (1.20-3.40); Lymphocytes % (auto) 21.5 %; Mean Corpuscular Hemoglobin 30.6 pg (25.0-34.0); Mean Corpuscular Hgb Conc 34.3 g/dL (32.0-36.0); Mean Corpuscular Volume 89.1 fL (80.0-100.0); Monocytes # (auto) 0.53 K/uL (0.11-0.59); Monocytes % (auto) 7.7 %; Neutrophils # (auto) 4.74 K/uL (1.40-6.50); Platelet Count 170 K/uL (130-400); RDW Standard Deviation 45.2 fL (36.4-46.3); White Blood Count 6.87 K/ul (4.8-10.8)
[2024-03-10 07:42] LABS: BUN Creatinine Ratio 27.8 (10-20); Calcium 8.1 mg/dl (8.6-10.3); Creatinine Clr Calc Pharmacy 95.1 ml/min; Est GFR (African American) 102.1 ml/min; Est GFR (Non-African American) 88.1 ml/min; Potassium 3.5 mmol/L (3.5-5.1)
[2024-03-10 07:48] LABS: Magnesium 2.1 mg/dl (1.7-2.4); Phosphorus 1.5 mg/dl (2.5-4.9)
[2024-03-10] MEDS ORDERED: POTASSIUM PHOS 3 MMOL/1 ML INFUSION IV STA (07:53)
[2024-03-10] MEDS: POTASSIUM PHOSPHATE 30 MMOL in SODIUM CHLORIDE 0.9% 500 ML IV ONE (08:44)
--- NOTE | 2024-03-10 10:45 | CT Scan Report ---
CT SCAN OF THE ABDOMEN AND PELVIS WITHOUT IV CONTRAST CLINICAL HISTORY: Generalized abdominal pain. COMPARISON STUDY: Abdominal CT dated 03/07/2024 and 03/12/2022. Chest CT dated 03/07/2024. TECHNIQUE: CT scan of the abdomen and pelvis is performed from the lung bases to the proximal femora. Images are reviewed in the axial, sagittal, and coronal planes. IV contrast was not administered for this examination as per the referring clinician. Note that the examination is performed in suboptima l fashion without oral and IV contrast. A dose lowering technique was utilized adhering to the princi ples of AUGUST. CT DOSE: 1201.06 mGy.cm FINDINGS: Lung bases: The heart is normal in size and without pericardial effusion. The coronary arteries are d ensely calcified. There is a small hiatal hernia. Calcified mediastinal and hilar lymph nodes are par tially visualized. There is a small left pleural effusion. Scarring/atelectasis is noted at both lung bases. There is no airspace consolidation typical for pneumonia. A 6 mm right lower lobe pulmonary n odule on image #1 is partially visualized and unchanged from a 2022 examination. Calcified granulomas are seen at both lung bases. Liver: There is an indeterminant low-attenuation focus in the inferomedial right lobe (segment ) se en on axial image #31 of 108. There is asymmetric biliary ductal dilatation seen distal to the site a nd abnormal attenuation in the inferomedial right lobe parenchyma. This has progressively increased o cam prior examinations and is suspicious for an underlying hepatic mass lesion. The unenhanced liver is otherwise normal in size, contour, and attenuation. There is mild central intrahepatic biliary ceasar caroline dilatation. Gallbladder: Surgically absent noting clips in the gallbladder fossa. Spleen: Normal in size and attenuation. There are calcified splenic granulomas. Pancreas: Scattered parenchymal calcifications suggest chronic pancreatitis. The unenhanced pancreas is otherwise grossly unremarkable. Adrenal glands: A 1.8 cm right adrenal adenoma is unchanged. The left adrenal gland is normal in appe arance. Kidneys: The unenhanced kidneys are normal in size and without hydronephrosis. There are no renal alon culi identified. A 2.6 cm complex cystic lesion in the upper pole of the right kidney on image #147 r emains suspicious for a renal neoplasm and compared to prior contrast-enhanced examinations. 5 cm cyst arises from the right lower kidney. Abdominal vasculature: There is advanced atherosclerotic calcification mild ectasia of the abdominal aorta. Bowel: There is moderate constipation. No bowel obstruction is seen. There is significant wall thicke marisela of the rectosigmoid colon with surrounding inflammation. The appearance is consistent a nonspeci fic proctocolitis, likely stercoral. Rectosigmoid fecal retention has decreased from 03/07/2024. There are prominent fluid-filled loops of small bowel. The appendix is not identified and reported surgic ally absent. Peritoneum: There is no intraperitoneal free air or abdominal ascites. Lymphadenopathy: None. Pelvic viscera: Evaluation of the pelvis is degraded by streak artifact from a right hip arthroplasty . The prostate gland is enlarged and heterogeneous. The bladder is distended, and the wall is thicken ed/trabeculated indicating chronic outlet obstruction. The bladder is filled with excreted IV contras t. Calcification of the penile tunica suggests Peyronie's disease. Skeletal structures: The skeletal structures are osteopenic. There is moderate lumbosacral spondylosi s. No lytic or blastic lesions are seen. A right hip arthroplasty is in place. IMPRESSION: 1. Moderate constipation. 2. There is evidence of a nonspecific proctocolitis involving the rectosigmoid, likely stercoral. Rec tosigmoid fecal retention has improved as compared to 03/07/2024. 3. A 2.6 cm complex cystic lesion arising from the upper pole of the right kidney is similar to previ ous. Renal cell carcinoma remains the diagnosis of exclusion. 4. There is progressive abnormality within the inferomedial right lobe of the liver with findings dimitri picious for an underlying mass lesion. GI follow-up is advised. A nonemergent/outpatient MRI of the l iver could be considered for further assessment. 5. Small left pleural effusion. 6. Advanced coronary artery atherosclerosis. 7. Additional findings as above. ACT 112: Negative or not required by law. Electronically signed by: Vishal Hardin M.D. 03/10/2024 10:43 AM
--- NOTE | 2024-03-10 12:57 | Hospitalist Progress Note ---
Date of Service March 10, 2024 Assessment & Plan (1) SIRS (systemic inflammatory response syndrome): (2) Constipation: (3) Fever: (4) Leukocytosis: (5) Adrenal adenoma: (6) BPH (benign prostatic hyperplasia): (7) HLD (hyperlipidemia): (8) Depression: (9) Renal mass: (10) Diabetes: (11) HTN (hypertension): Plan Assessment and plan: Sepsis of unknown origin: Lactic acidosis Proctocolitis Hypotension, tachycardia with fever and high lactic acid on arrival Likely intra-abdominal cause of sepsis and could be developing diverticulitis CT of the abdomen and pelvis documented to have stercolar Colitis Has been getting intravenous Zosyn and daptomycin stool culture has been negative for C. difficile Blood cultures were taken- have been negative He has been feeling little better since admission Clinically better, still has some abdominal discomfort Will continue current intravenous antibiotic and also fluid for now The patient remains symptomatic though his leg a little better Repeat CT of the abdomen pelvis did show colitis involving sigmoid and colon junction Will advanced diet as tolerated from today ABRAM: Hypotensive and tachycardic on arrival, febrilenow improved Creatinine elevated 1.62, likely secondary to sepsis, Daily CMP has been receiving intravenous fluid noted to have mildly hypokalemic and also hypophosphatemic Will supplement and monitor -Creatinine is normalized and electrolytes will be supplemented Constipation: Vomiting bile on exam, reports last bowel movement was 4 days ago Dulcolax suppositories ordered, clear liquid diet - bowel movement Hx DM2: Check A1c, SSI/QID BGM Add Lantus as needed Hx HTN: Hold lisinopril, continue metoprolol with hold parameters Hx HLD: Hold atorvastatin with lactic acidosis Full code DVT prophylaxis: Heparin subcu Admission and Anticipated Discharge Date Admission Date: March 07, 2024 Subjective 03/08/2024 The patient was seen and examined in telemetry unit He has been feeling a little better but is still complains significant abdominal pain Denies any distention or nausea Has been having loose stools without any fever and/or chills 03/09/2024 The patient was seen and examined in telemetry unit He has been feeling better with decreasing abdominal pain Denies any nausea or vomiting and he is still afraid to eat 03/10/2024 The patient was seen and examined in telemetry unit He has had bowel movement but he still has abdominal discomfort mainly in the left lower quadrant Repeat CT showed proctocolitis Denies any fever and no chills, no nausea no vomiting Review of Systems Review of Systems: all systems reviewed and are unremarkable except as noted below Physical Exam Physical Exam: lying in bed with acute distress due to abdominal pain Constitutional: + ill appearing and average body habitus Eyes: PERRL, conjunctivae normal, anicteric sclerae ENMT: external ear and nose normal, oropharynx normal Neck: trachea midline, no thyromegaly Respiratory: no respiratory distress Auscultation: lungs clear to auscultation bilaterally Cardiovascular: Rate/Rhythm: regular rate and regular rhythm; not tachycardic Heart Sounds: normal S1 and normal S2; no murmur Extremities: no edema Gastrointestinal (Abdomen): Inspection/Auscultation: normal bowel sounds; abdomen not distended Percussion/Palpation: + abdomen tender ( Minimally tender Left lower quadrant); no guarding and abdomen not rigid Neurologic: normal touch/pain/proprioception and moves all extremities; no focal motor deficits Lymphatic: no cervical or axillary lymphadenopathy Results & Data Results & Data Vital Signs (Past 12 Hours) Vital Signs Temp Pulse Pulse Resp BP BP Pulse Ox 03/10/24 10:46 36.7 C 71 19 148/75 H 96 03/10/24 08:00 03/10/24 08:00 68 03/10/24 07:00 36.6 C 65 19 152/74 H 97 03/10/24 02:43 36.8 C 63 18 137/71 95 O2 Del Method 03/10/24 10:46 Room Air 03/10/24 08:00 Room Air 03/10/24 08:00 03/10/24 07:00 Room Air 03/10/24 02:43 Room Air Laboratory Results Short CBC 03/10/24 Range/Units 06:29 WBC 6.87 (4.8-10.8) K/ul Hgb 10.7 L (14.0-18.0) g/dl Hct 31.2 L (42.0-52.0) % Plt Count 170 (130-400) K/uL BMP 03/10/24 06:29 Sodium 140 Potassium 3.5 Chloride 110 H Carbon Dioxide 24 BUN 20 Creatinine 0.72 Glucose 86 Calcium 8.1 L Medications Administered Current Inpatient Medications Bisacodyl (Bisacodyl 10 Mg Supp) 10 mg [place] DAILY PRN PRN Reason: Constipation Stop: 04/06/24 18:38 Dextrose (Dextrose 50% 50 Ml Syringe) 25 - 50 ml IV UD PRN; Protocol PRN Reason: Hypoglycemia Protocol Stop: 04/06/24 18:38 Finasteride (Finasteride 5 Mg Tab) 5 mg PO DAILY [facility] Stop: 04/07/24 08:59 Last Admin: 03/10/24 07:59 Dose: 5 mg Glucagon (Glucagon For Inj 1 Mg Vial) 1 mg SQ UD PRN; Protocol PRN Reason: Hypoglycemia Protocol Stop: 04/06/24 18:38 Glucose (Glucose 40% Gel 15 Gm Tube) 15 - 30 gm PO UD PRN; Protocol PRN Reason: Hypoglycemia Protocol Stop: 04/06/24 18:38 Glucose (Glucose 10 Tab/Tube) 4 - 8 tab PO UD PRN; Protocol PRN Reason: Hypoglycemia Treatment Stop: 04/06/24 18:38 Heparin Sodium (Porcine) (Heparin Sod 5,000 Unit/0.5 Ml Vial) 5,000 units SQ Q12 [facility] Stop: 04/06/24 20:59 Last Admin: 03/10/24 11:43 Dose: Not Given Acetaminophen (Ofirmev) 1,000 mg in 100 mls @ 400 mls/hr IV Q8H PRN PRN Reason: Pain or Fever Stop: 03/10/24 18:52 Last Infusion: 03/07/24 20:11 Dose: Infused Lactated Ringer's (Lr) 1,000 mls @ 80 mls/hr IV .[id number] [facility]HA Stop: 03/11/24 02:14 Last Infusion: 03/10/24 09:26 Dose: 0 mls/hr Potassium Phosphate 30 mmol/ (Sodium Chloride) 510 mls @ 88 mls/hr IV ONE ONE Stop: 03/10/24 14:17 Last Admin: 03/10/24 08:44 Dose: 88 mls/hr Insulin Aspart (Insulin Aspart Per Unit Charge) 0 units SC ACHS [facility] Stop: 04/06/24 20:59 Last Admin: 03/10/24 07:59 Dose: Not Given Metoprolol Succinate (Metoprolol Succ 25mg Ext Rel Tab) 12.5 mg PO QAM [facility] Stop: 04/07/24 08:59 Last Admin: 03/10/24 07:59 Dose: 12.5 mg Miscellaneous (Carbohydrates For Hypoglycemia ) 15 - 30 gm PO UD PRN PRN Reason: Hypoglycemia Protocol Stop: 04/06/24 18:38 Polyethylene Glycol (Polyethylene (Miralax) 17 Gm Pack) 17 gm PO DAILY PRN PRN Reason: Constipation Stop: 04/06/24 19:25 (2) Constipation Constipation type: unspecified constipation type Qualified Code(s): K59.00 - Constipation, unspecified (3) Fever Fever type: unspecified Qualified Code(s): R50.9 - Fever, unspecified (4) Leukocytosis Leukocytosis type: unspecified Qualified Code(s): D72.829 - Elevated white blood cell count, unspecified
--- NOTE | 2024-03-11 06:52 | Communication Note ---
Date of Service: March 11, 2024 Patient with mucoid bloody BM as per RN. No abdominal pain as per RN. Painless LGIB Proctocolitis on CT imaging Hold heparin subcu for now.
[2024-03-11 08:17] LABS: BUN Creatinine Ratio 20.7 (10-20); Basophils # (auto) 0.02 K/uL (0.00-0.20); Basophils % (auto) 0.3 %; Creatinine Clr Calc Pharmacy 118.1 ml/min; Eosinophils # (auto) 0.07 K/uL (0.00-0.50); Eosinophils % (auto) 1.1 %; Est GFR (African American) 111.6 ml/min; Est GFR (Non-African American) 96.3 ml/min; Hematocrit (blood only) 32.4 % (42.0-52.0); Hemoglobin 10.9 g/dl (14.0-18.0); Immature Granulocytes # (auto) 0.02 K/uL (0.01-0.20); Immature Granulocytes % (auto) 0.3 %; Lymphocytes # (auto) 1.62 K/uL (1.20-3.40); Lymphocytes % (auto) 24.7 %; Magnesium 1.9 mg/dl (1.7-2.4); Mean Corpuscular Hemoglobin 29.5 pg (25.0-34.0); Mean Corpuscular Hgb Conc 33.6 g/dL (32.0-36.0); Mean Corpuscular Volume 87.6 fL (80.0-100.0); Mean Platelet Volume 10.5 fL (9.4-12.4); Monocytes # (auto) 0.48 K/uL (0.11-0.59); Monocytes % (auto) 7.3 %; Neutrophils # (auto) 4.34 K/uL (1.40-6.50); Neutrophils % (auto) 66.3 %; Platelet Count 194 K/uL (130-400); Potassium 3.4 mmol/L (3.5-5.1); RDW Coefficient of Variation 13.5 % (11.5-14.5); RDW Standard Deviation 43.4 fL (36.4-46.3); White Blood Count 6.55 K/ul (4.8-10.8)
--- NOTE | 2024-03-11 13:26 | Hospitalist Progress Note ---
Date of Service March 11, 2024 Assessment & Plan (1) SIRS (systemic inflammatory response syndrome): (2) Constipation: (3) Fever: (4) Leukocytosis: (5) Adrenal adenoma: (6) BPH (benign prostatic hyperplasia): (7) HLD (hyperlipidemia): (8) Depression: (9) Renal mass: (10) Diabetes: (11) HTN (hypertension): Plan Assessment and plan: Sepsis of unknown origin: Lactic acidosis Proctocolitis Hypotension, tachycardia with fever and high lactic acid on arrival Likely intra-abdominal cause of sepsis and could be developing diverticulitis CT of the abdomen and pelvis documented to have stercolar Colitis Has been getting intravenous Zosyn and daptomycin stool culture has been negative for C. difficile Blood cultures were taken- have been negative He has been feeling little better since admission Clinically better, still has some abdominal discomfort Will continue current intravenous antibiotic and also fluid for now The patient remains symptomatic though his leg a little better Repeat CT of the abdomen pelvis did show colitis involving sigmoid and colon junction Will advanced diet as tolerated from today Has been tolerating advance diet and has been having bowel movement He has bright red blood per rectum last night but not been since then Abdominal pain is no longer there and denies any nausea no vomiting Will get PT OT evaluation and possible discharge in a day or 2 ABRAM: Hypotensive and tachycardic on arrival, febrilenow improved Creatinine elevated 1.62, likely secondary to sepsis, Daily CMP has been receiving intravenous fluid noted to have mildly hypokalemic and also hypophosphatemic Will supplement and monitor -Creatinine is normalized and electrolytes will be supplemented Constipation: Vomiting bile on exam, reports last bowel movement was 4 days ago Dulcolax suppositories ordered, clear liquid diet - bowelHas been moving Hx DM2: Check A1c, SSI/QID BGM Add Lantus as needed Hx HTN: Hold lisinopril, continue metoprolol with hold parameters Hx HLD: Hold atorvastatin with lactic acidosis Full code DVT prophylaxis: Heparin subcu Admission and Anticipated Discharge Date Admission Date: March 07, 2024 Subjective 03/08/2024 The patient was seen and examined in telemetry unit He has been feeling a little better but is still complains significant abdominal pain Denies any distention or nausea Has been having loose stools without any fever and/or chills 03/09/2024 The patient was seen and examined in telemetry unit He has been feeling better with decreasing abdominal pain Denies any nausea or vomiting and he is still afraid to eat 03/10/2024 The patient was seen and examined in telemetry unit He has had bowel movement but he still has abdominal discomfort mainly in the left lower quadrant Repeat CT showed proctocolitis Denies any fever and no chills, no nausea no vomiting 03/11/2024 The patient was seen and examined in telemetry unit He has had slimy stool last night with some blood in it Denies any more symptom of that sort Abdominal pain is much better and he has been tolerating advance diet Review of Systems Review of Systems: all systems reviewed and are unremarkable except as noted below Physical Exam Physical Exam: lying in bed with acute distress due to abdominal pain Constitutional: + ill appearing and average body habitus Eyes: PERRL, conjunctivae normal, anicteric sclerae ENMT: external ear and nose normal, oropharynx normal Neck: trachea midline, no thyromegaly Respiratory: no respiratory distress Auscultation: lungs clear to auscultation bilaterally Cardiovascular: Rate/Rhythm: regular rate and regular rhythm; not tachycardic Heart Sounds: normal S1 and normal S2; no murmur Extremities: no edema Gastrointestinal (Abdomen): Inspection/Auscultation: normal bowel sounds; abdomen not distended Percussion/Palpation: + abdomen tender ( Minimally tender Left lower quadrant); no guarding and abdomen not rigid Neurologic: normal touch/pain/proprioception and moves all extremities; no focal motor deficits Lymphatic: no cervical or axillary lymphadenopathy Results & Data Results & Data Vital Signs (Past 12 Hours) Vital Signs Temp Pulse Pulse Resp BP Pulse Ox O2 Del Method 03/11/24 10:41 36.2 C L 73 16 128/65 96 Room Air 03/11/24 08:00 71 03/11/24 07:00 36.6 C 67 18 127/65 95 Room Air 03/11/24 03:24 36.8 C 68 18 159/71 H 95 Room Air Laboratory Results Short CBC 03/11/24 Range/Units 07:46 WBC 6.55 (4.8-10.8) K/ul Hgb 10.9 L (14.0-18.0) g/dl Hct 32.4 L (42.0-52.0) % Plt Count 194 (130-400) K/uL BMP 03/11/24 07:46 Sodium 139 Potassium 3.4 L Chloride 109 H Carbon Dioxide 25 BUN 12 Creatinine 0.58 L Glucose 90 Calcium 8.0 L Medications Administered Current Inpatient Medications Bisacodyl (Bisacodyl 10 Mg Supp) 10 mg [place] DAILY PRN PRN Reason: Constipation Stop: 04/06/24 18:38 Dextrose (Dextrose 50% 50 Ml Syringe) 25 - 50 ml IV UD PRN; Protocol PRN Reason: Hypoglycemia Protocol Stop: 04/06/24 18:38 Finasteride (Finasteride 5 Mg Tab) 5 mg PO DAILY [facility] Stop: 04/07/24 08:59 Last Admin: 03/11/24 08:08 Dose: 5 mg Glucagon (Glucagon For Inj 1 Mg Vial) 1 mg SQ UD PRN; Protocol PRN Reason: Hypoglycemia Protocol Stop: 04/06/24 18:38 Glucose (Glucose 40% Gel 15 Gm Tube) 15 - 30 gm PO UD PRN; Protocol PRN Reason: Hypoglycemia Protocol Stop: 04/06/24 18:38 Glucose (Glucose 10 Tab/Tube) 4 - 8 tab PO UD PRN; Protocol PRN Reason: Hypoglycemia Treatment Stop: 04/06/24 18:38 Heparin Sodium (Porcine) (Heparin Sod 5,000 Unit/0.5 Ml Vial) 5,000 units SQ Q12 [facility] Stop: 04/06/24 20:59 Last Admin: 03/10/24 19:06 Dose: Not Given Insulin Aspart (Insulin Aspart Per Unit Charge) 0 units SC ACHS [facility] Stop: 04/06/24 20:59 Last Admin: 03/11/24 12:34 Dose: Not Given Metoprolol Succinate (Metoprolol Succ 25mg Ext Rel Tab) 12.5 mg PO QAM [facility] Stop: 04/07/24 08:59 Last Admin: 03/11/24 08:08 Dose: 12.5 mg Miscellaneous (Carbohydrates For Hypoglycemia ) 15 - 30 gm PO UD PRN PRN Reason: Hypoglycemia Protocol Stop: 04/06/24 18:38 Polyethylene Glycol (Polyethylene (Miralax) 17 Gm Pack) 17 gm PO DAILY PRN PRN Reason: Constipation Stop: 04/06/24 19:25 (2) Constipation Constipation type: unspecified constipation type Qualified Code(s): K59.00 - Constipation, unspecified (3) Fever Fever type: unspecified Qualified Code(s): R50.9 - Fever, unspecified (4) Leukocytosis Leukocytosis type: unspecified Qualified Code(s): D72.829 - Elevated white blood cell count, unspecified
[2024-03-12 07:33] LABS: Basophils # (auto) 0.02 K/uL (0.00-0.20); Basophils % (auto) 0.3 %; Eosinophils % (auto) 1.6 %; Hematocrit (blood only) 30.1 % (42.0-52.0); Hemoglobin 10.3 g/dl (14.0-18.0); Immature Granulocytes # (auto) 0.03 K/uL (0.01-0.20); Immature Granulocytes % (auto) 0.5 %; Lymphocytes % (auto) 25.1 %; Mean Corpuscular Hemoglobin 29.6 pg (25.0-34.0); Mean Corpuscular Hgb Conc 34.2 g/dL (32.0-36.0); Mean Corpuscular Volume 86.5 fL (80.0-100.0); Mean Platelet Volume 10.6 fL (9.4-12.4); Monocytes # (auto) 0.63 K/uL (0.11-0.59); Monocytes % (auto) 9.9 %; Neutrophils % (auto) 62.6 %; Platelet Count 193 K/uL (130-400); RDW Coefficient of Variation 13.6 % (11.5-14.5); RDW Standard Deviation 42.3 fL (36.4-46.3); Red Blood Count 3.48 M/uL (4.70-6.10); White Blood Count 6.38 K/ul (4.8-10.8)
[2024-03-12 07:45] LABS: BUN Creatinine Ratio 17.3 (10-20); Calcium 7.9 mg/dl (8.6-10.3); Creatinine Clr Calc Pharmacy 131.7 ml/min; Est GFR (African American) 116.7 ml/min; Est GFR (Non-African American) 100.7 ml/min; Magnesium 1.9 mg/dl (1.7-2.4); Phosphorus 2.2 mg/dl (2.5-4.9); Potassium 3.1 mmol/L (3.5-5.1)
[2024-03-12] MEDS ORDERED: POTASSIUM PHOS 3 MMOL/1 ML INFUSION IV STA (08:10)
[2024-03-12] MEDS: POTASSIUM PHOSPHATE 21 MMOL in SODIUM CHLORIDE 0.9% 500 ML IV ONE (09:12)
[2024-03-12] MEDS: POTASSIUM CHLORIDE CRTAB 20 MEQ TABCR PO STA (09:12)
--- NOTE | 2024-03-12 13:21 | Hospitalist Progress Note ---
Date of Service March 12, 2024 Assessment & Plan (1) SIRS (systemic inflammatory response syndrome): (2) Constipation: (3) Fever: (4) Leukocytosis: (5) Adrenal adenoma: (6) BPH (benign prostatic hyperplasia): (7) HLD (hyperlipidemia): (8) Depression: (9) Renal mass: (10) Diabetes: (11) HTN (hypertension): Plan Assessment and plan: Sepsis of unknown origin: Lactic acidosis Proctocolitis Hypotension, tachycardia with fever and high lactic acid on arrival Likely intra-abdominal cause of sepsis and could be developing diverticulitis CT of the abdomen and pelvis documented to have stercolar Colitis Has been getting intravenous Zosyn and daptomycin stool culture has been negative for C. difficile Blood cultures were taken- have been negative He has been feeling little better since admission Clinically better, still has some abdominal discomfort Will continue current intravenous antibiotic and also fluid for now The patient remains symptomatic though his leg a little better Repeat CT of the abdomen pelvis did show colitis involving sigmoid and colon junction Will advanced diet as tolerated from today Has been tolerating advance diet and has been having bowel movement He has bright red blood per rectum last night but not been since then Denies any more abdominal pain and has been tolerating regular diet Antibiotics were discontinued after 48 hours of empiric therapy He has had physical therapy and recommended home Likely discharge this afternoon or even tomorrow morning ABRAM: Hypotensive and tachycardic on arrival, febrilenow improved Creatinine elevated 1.62, likely secondary to sepsis, Daily CMP has been receiving intravenous fluid noted to have mildly hypokalemic and also hypophosphatemic Will supplement and monitor -Creatinine is normalized and electrolytes will be supplemented kidney function has reverted to normal Has hypokalemia and hypo phosphatemia- likely secondary to diarrhea Will give oral supplement on discharge Constipation: Vomiting bile on exam, reports last bowel movement was 4 days ago Dulcolax suppositories ordered, clear liquid diet - bowelHas been moving Hx DM2: Check A1c, SSI/QID BGM Add Lantus as needed Hx HTN: Hold lisinopril, continue metoprolol with hold parameters Hx HLD: Hold atorvastatin with lactic acidosis Full code DVT prophylaxis: Heparin subcu Admission and Anticipated Discharge Date Admission Date: March 07, 2024 Subjective 03/08/2024 The patient was seen and examined in telemetry unit He has been feeling a little better but is still complains significant abdominal pain Denies any distention or nausea Has been having loose stools without any fever and/or chills 03/09/2024 The patient was seen and examined in telemetry unit He has been feeling better with decreasing abdominal pain Denies any nausea or vomiting and he is still afraid to eat 03/10/2024 The patient was seen and examined in telemetry unit He has had bowel movement but he still has abdominal discomfort mainly in the left lower quadrant Repeat CT showed proctocolitis Denies any fever and no chills, no nausea no vomiting 03/11/2024 The patient was seen and examined in telemetry unit He has had slimy stool last night with some blood in it Denies any more symptom of that sort Abdominal pain is much better and he has been tolerating advance diet 03/12/2024 The patient was seen and examined in telemetry unit He has been feeling much better but remains generally weak Denies any abdominal pain, distention, nausea or vomiting He has been tolerating regular diet Has had physical therapy and recommended home Review of Systems Review of Systems: all systems reviewed and are unremarkable except as noted below Physical Exam Physical Exam: lying in bed with acute distress due to abdominal pain Constitutional: + ill appearing and average body habitus Eyes: PERRL, conjunctivae normal, anicteric sclerae ENMT: external ear and nose normal, oropharynx normal Neck: trachea midline, no thyromegaly Respiratory: no respiratory distress Auscultation: lungs clear to auscultation bilaterally Cardiovascular: Rate/Rhythm: regular rate and regular rhythm; not tachycardic Heart Sounds: normal S1 and normal S2; no murmur Extremities: no edema Gastrointestinal (Abdomen): Inspection/Auscultation: normal bowel sounds; abdomen not distended Percussion/Palpation: abdomen nontender ( Minimally tender Left lower quadrant), no guarding and abdomen not rigid Musculoskeletal: No acute arthritis involving any of the joint Neurologic: normal touch/pain/proprioception and moves all extremities; no focal motor deficits Lymphatic: no cervical or axillary lymphadenopathy Results & Data Results & Data Vital Signs (Past 12 Hours) Vital Signs Temp Pulse Pulse Resp BP Pulse Ox O2 Del Method 03/12/24 10:55 36.5 C 70 18 138/71 96 Room Air 03/12/24 09:35 68 03/12/24 07:31 37.2 C 69 18 166/79 H 94 Room Air 03/12/24 03:33 36.8 C 62 18 151/71 H 95 Room Air Laboratory Results Short CBC 03/12/24 Range/Units 06:32 WBC 6.38 (4.8-10.8) K/ul Hgb 10.3 L (14.0-18.0) g/dl Hct 30.1 L (42.0-52.0) % Plt Count 193 (130-400) K/uL BMP 03/12/24 06:32 Sodium 139 Potassium 3.1 L Chloride 109 H Carbon Dioxide 25 BUN 9 Creatinine 0.52 L Glucose 95 Calcium 7.9 L Medications Administered Current Inpatient Medications Bisacodyl (Bisacodyl 10 Mg Supp) 10 mg [place] DAILY PRN PRN Reason: Constipation Stop: 04/06/24 18:38 Dextrose (Dextrose 50% 50 Ml Syringe) 25 - 50 ml IV UD PRN; Protocol PRN Reason: Hypoglycemia Protocol Stop: 04/06/24 18:38 Finasteride (Finasteride 5 Mg Tab) 5 mg PO DAILY [facility] Stop: 04/07/24 08:59 Last Admin: 03/12/24 08:48 Dose: 5 mg Glucagon (Glucagon For Inj 1 Mg Vial) 1 mg SQ UD PRN; Protocol PRN Reason: Hypoglycemia Protocol Stop: 04/06/24 18:38 Glucose (Glucose 40% Gel 15 Gm Tube) 15 - 30 gm PO UD PRN; Protocol PRN Reason: Hypoglycemia Protocol Stop: 04/06/24 18:38 Glucose (Glucose 10 Tab/Tube) 4 - 8 tab PO UD PRN; Protocol PRN Reason: Hypoglycemia Treatment Stop: 04/06/24 18:38 Heparin Sodium (Porcine) (Heparin Sod 5,000 Unit/0.5 Ml Vial) 5,000 units SQ Q12 [facility] Stop: 04/06/24 20:59 Last Admin: 03/10/24 19:06 Dose: Not Given Potassium Phosphate 21 mmol/ (Sodium Chloride) 507 mls @ 88 mls/hr IV ONE ONE Stop: 03/12/24 14:15 Last Admin: 03/12/24 09:12 Dose: 88 mls/hr Insulin Aspart (Insulin Aspart Per Unit Charge) 0 units SC ACHS [facility] Stop: 04/06/24 20:59 Last Admin: 03/12/24 12:20 Dose: Not Given Metoprolol Succinate (Metoprolol Succ 25mg Ext Rel Tab) 12.5 mg PO QAM [facility] Stop: 04/07/24 08:59 Last Admin: 03/12/24 08:47 Dose: 12.5 mg Miscellaneous (Carbohydrates For Hypoglycemia ) 15 - 30 gm PO UD PRN PRN Reason: Hypoglycemia Protocol Stop: 04/06/24 18:38 Polyethylene Glycol (Polyethylene (Miralax) 17 Gm Pack) 17 gm PO DAILY PRN PRN Reason: Constipation Stop: 04/06/24 19:25 (2) Constipation Constipation type: unspecified constipation type Qualified Code(s): K59.00 - Constipation, unspecified (3) Fever Fever type: unspecified Qualified Code(s): R50.9 - Fever, unspecified (4) Leukocytosis Leukocytosis type: unspecified Qualified Code(s): D72.829 - Elevated white blood cell count, unspecified
[2024-03-13 03:39] VITALS: O2SAT 95
[2024-03-13 11:15] VITALS: RESP 16; TEMP 98.1
--- NOTE | 2024-03-13 13:24 | Discharge Summary ---
Discharge Summary Date of Service March 13, 2024 Principal Dx & Hospital Course #1 = Principal Diagnosis (1) Acute proctitis: (2) Acute constipation: (3) SIRS (systemic inflammatory response syndrome): (4) BPH (benign prostatic hyperplasia): (5) Diabetes: (6) Renal mass: (7) Liver mass, right lobe: Plan Patient presented to the emergency room with generalized weakness, some mild hypotension. Evaluation in the emergency room was concerning for SARS and noted a large stool burden. Patient was admitted to the hospital. Placed on empiric IV antibiotics for presumed sepsis. Given medications to move his bowels. After 24 hours all cultures were negative and no other signs of bacterial infection antibiotics were discontinued. Surgery consultation was obtained and recommended ongoing treatment for his constipation. Ultimately determined the patient had a proctocolitis most likely from his severe constipation. His diet was advanced. He was seen by therapies and his weakness improved. Discussed with the patient and an aggressive bowel regimen to keep his bowels moving every 2 to 3 days versus every 6 to 7 days which she had been his norm previous to admission. The day of discharge is up and ambulating. Overall doing well to continue his care and recuperation at home. Notes For Next Care Provider Discuss with patient if he wants any further evaluation for the renal mass. Reportedly per patient this is a chronic finding. Consider MRI of the liver to further evaluate liver mass Medication Changes From Visit MiraLAX increased and scheduled 2 times daily Senna increased and scheduled 2 times daily Admission HPI Per Admitting Provider The patient is an 79-year-old male with a past medical history of DM2, hyperlipidemia, HTN, CVA, SVT, CAD, right kidney mass, BPH, adrenal adenoma, depression who presents to the ED on 03/07/2024 with complaints of generalized weakness and not feeling well. Patient reported vomiting x 1 prior to arrival to ED. Patient has a history of frequent UTIs in the past which all make him very sick. The patient was noted to be hypotensive en route to the hospital. Patient denies any respiratory symptoms including cough/shortness of breath/chest pain. Patient reports his last bowel movement was about 4 days ago. Denies any fevers at home. On arrival to the ED, labs remarkable for 14.1, hemoglobin 12.8, anion gap 13, creatinine 1.62above baseline VBG completed showed a pH of 7.35, CO2 37, glucose 211, lactate UA fairly unremarkable Blood cultures pending 6.14.3 Abdomen/pelvis CT showed stool burden in the rectum, showed a right kidney superior pole enhancing lesionconcerning for renal cell carcinoma, which the patient reports is chronic Head CT was negative Chest x-ray was negative Chest CTA was negative for PE SBP's in the 80s on arrival to the ED, this improved with IV fluids, patient is now hemodynamically stable. No tachycardia noted. EKG shows sinus bradycardia The patient will be admitted for further management of sepsis unknown etiology Admission Exam Per Admitting Provider See H&P Discharge Exam Constitutional: Alert HEENT: Mucous membranes moist. Lungs: Clear to auscultation, decreased, no wheezes rales or rhonchi CV: S1-S2, regular Abdomen: Soft, nontender, nondistended Extremities: No significant edema Neuro: No focal deficits Psych: Cooperative, normal mood Updated Medication List Medication Instructions Recorded Confirmed Type acetaminophen 325 mg tablet 650 mg PO Q4 PRN Fever Or Pain 09/12/22 03/07/24 History (Tylenol) atorvastatin 20 mg tablet 20 mg PO DAILY 09/12/22 03/07/24 History gabapentin 100 mg capsule 100 mg PO BID 09/12/22 03/07/24 History lisinopril 20 mg tablet 20 mg PO QAM #30 tabs 09/14/22 03/07/24 Rx metoprolol succinate 25 mg 12.5 mg (1/2 x 25 mg) PO QAM #15 09/14/22 03/07/24 Rx tablet,extended release 24 hr tabs sennosides 8.6 mg-docusate sodium 1 tab-cap PO DAILY #30 tabs 09/14/22 03/07/24 Rx 50 mg tablet (Senna with Docusate Sodium) alpha lipoic acid 300 mg capsule 600 mg PO QAM 01/17/23 03/07/24 History furosemide 20 mg tablet 20 mg PO DAILY PRN Edema 01/17/23 03/07/24 History mirtazapine 15 mg tablet 15 mg PO HS 01/17/23 03/07/24 History nut.tx.gluc.intol,lac-free,soy 1 ea PO BIDM 01/17/23 03/07/24 History (Glucerna Hunger Smart oral liquid) polyethylene glycol 3350 17 17 g PO DAILY PRN Constipation 01/17/23 03/07/24 History gram/dose oral powder (Miralax) finasteride 5 mg tablet 5 mg PO DAILY #90 tabs 05/10/23 03/07/24 Rx bisacodyl 10 mg rectal suppository 10 mg MI Q48H PRN constipation #30 03/13/24 Rx ea lactulose 20 gram/30 mL oral 20 g (30 mL) PO BID PRN laxative 03/13/24 Rx solution effect/constipation #1,500 mL Hospital Stay Data Consultations 03/07/24 16:29 ED Decision to Admit Stat 03/07/24 21:04 Consult General Surgery Routine Diagnostic Imagining Performed 03/07/24 14:36 CT angio chest PE protocol Stat CT head/brain wo con Stat 03/07/24 14:53 CT abd pelvis IV con only Stat 03/08/24 US venous doppler LE BI Routine 03/10/24 09:33 CT Abd and Pelvis [CT abd pelvis wo con] Routine Reviewed imaging, laboratory and diagnostic studies. Pertinent findings as below. CBC and BMP stable Follow-up CT of the abdomen showed nonspecific proctocolitis with improved/less burden of stool Cystic lesion on the kidney is similar to previous CTs Questionable finding of the right lobe of the liver. Pending Results Patient Have Any Pending Studies at Discharge: No Discharge Instructions Given to Patient (Per Discharging Provider) Adjust bowel regimen so that you are having stools at least once every 2 to 3 days Home Health Attestation I certify that this patient is under my care and that I, or a physicians stylist assistant working with me, had a face to-face encounter that meets the home health jewh-sn-chxe encounter requirements with this patient. The encounter with the patient was in whole, or in part, for the following medical condition, which is the primary reason for home health care (list medical condition): I certify that, based on my findings, the following services are medically necessary home health services: My clinical findings support the need for the above services because: Further, I certify that my clinical findings support that this patient is homebound (i.e. absences from home require considerable and taxing effort and are for medical reasons or sabianism services or infrequently or of short duration when for other reasons) because: Certification for Home Health Services: Based on the above findings, I certify that this patient is confined to the home and needs intermittent chcf care, physical therapy and/or speech therapy or continues to need occupational therapy. The patient is under my care, and I have initiated the establishment of the plan of care. This patient will be followed by a physician who will periodically review the plan of care. Total Time Total Time Spent Total Time Spent (In Minutes): 36
[2024-03-13 13:38] VITALS: BP 148/75
[2024-03-13 14:41] VITALS: PULSE 80
--- NOTE | 2024-03-15 21:05 | Coding Query ---
SEPSIS To promote full compliance with coding requirements relating to patient care, physician participation is requested in all cases of denitrator uncertainty. Please assist us with the question(s) below: In responding to this query, please exercise your independent professional judgement. The fact that a question is asked does not imply that any particular answer is desired or expected. We appreciate your clarification on this issue. Throughout the medical record, you have clearly documented a localized infection and your patient has clinical evidence of a generalized sepsis or severe sepsis. The term urosepsis is a nonspecific entity and is coded as an UTI. If the patient has sepsis, severe sepsis, from an urinary source or some other source, please clarify in your response below. The medical record reflects the following clinical findings: Progress notes documented Sepsis . DS states SIRS. Pt admitted with proctitis and acute constipation. Please check below the diagnosis treated during this inpatient stay. Thank you. LUIS Morales CCS ____ ( )Bacteremia (Nonspecific laboratory finding of bacteria in the blood) Specify Organism ( ) Present on Admission ( ) Not present on admission ( ) Unable to clinically determine ( ) Septicemia (Systemic disease associated with the presence of pathogenic microorganisms in the blood): Specify Organism ( ) Present on Admission ( ) Not present on admission ( ) Unable to clinically determine ( ) Sepsis Specify Organism Specify Associated Condition/Diagnosis ( ) Present on Admission ( ) Not present on admission ( ) Unable to clinically determine ( ) Severe Sepsis (Sepsis associated with acute organ dysfunction) Specify Organism Specify Associated Condition/Diagnosis ( ) Present on Admission ( ) Not present on admission ( ) Unable to clinically determine ( ) Septic Shock (Severe sepsis with acute circulatory failure, unexplained by other causes) ( ) Present on Admission ( ) Not present on admission ( ) Unable to clinically determine ( ) Other, patient has: Patient presented with sepsis due to unknown organism that was present on admission MTDD
== END 2024-03-13 15:04 | disposition home or self-care (01) | DRG 872 ==
LOC: ED 13:31 → 2S 17:13 → SUATTDRO 17:13 → 2S 18:06

== ENCOUNTER 2024-11-28 20:53 | Inpatient (IN) ==
[2024-11-28 21:26] LABS: Basophils # (auto) 0.03 K/uL (0.00-0.20); Basophils % (auto) 0.4 %; Eosinophils # (auto) 0.08 K/uL (0.00-0.50); Eosinophils % (auto) 1.1 %; Hematocrit (blood only) 33.4 % (42.0-52.0); Immature Granulocytes # (auto) 0.01 K/uL (0.01-0.20); Immature Granulocytes % (auto) 0.1 %; Lymphocytes # (auto) 1.84 K/uL (1.20-3.40); Lymphocytes % (auto) 25.4 %; Mean Corpuscular Hemoglobin 30.4 pg (25.0-34.0); Mean Corpuscular Hgb Conc 32.9 g/dL (32.0-36.0); Mean Corpuscular Volume 92.3 fL (80.0-100.0); Mean Platelet Volume 10.5 fL (9.4-12.4); Monocytes # (auto) 0.66 K/uL (0.11-0.59); Monocytes % (auto) 9.1 %; Neutrophils # (auto) 4.62 K/uL (1.40-6.50); Neutrophils % (auto) 63.9 %; Platelet Count 288 K/uL (130-400); RDW Coefficient of Variation 14.6 % (11.5-14.5); RDW Standard Deviation 49.6 fL (36.4-46.3); Red Blood Count 3.62 M/uL (4.70-6.10); White Blood Count 7.24 K/ul (4.8-10.8)
[2024-11-28 21:42] LABS: Anion Gap 7 (3-11); BUN Creatinine Ratio 31.6 (10-20); Blood Urea Nitrogen 24 mg/dl (6-23); Calcium 8.9 mg/dl (8.6-10.3); Carbon Dioxide 26 mmol/L (21-32); Chloride 107 mmol/L (98-107); Glucose 90 mg/dl (70-99(Fasting)); Lipase 77 U/L (11-82); Potassium 3.9 mmol/L (3.5-5.1); Sodium 140 mmol/L (136-145)
[2024-11-28 21:50] LABS: Magnesium 1.8 mg/dl (1.7-2.4)
[2024-11-28 21:54] LABS: INR 1.1 (0.9-1.1); Partial Thromboplastin Ratio 1.1; Partial Thromboplastin Time 30 Seconds (21-31); Prothrombin Time 11.7 Seconds (9.0-12.0)
[2024-11-28 22:04] LABS: Troponin I High Sensitivity 55.2 pg/ml (0-20)
[2024-11-28] MEDS: FUROSEMIDE 40 MG/4 ML VIAL IV ONE (22:15)
--- NOTE | 2024-11-28 22:25 | History & Physical Report ---
Date of Service November 28, 2024 Assessment & Plan (1) Bilateral leg edema: Plan: Assessment and plan below following discussion of case with ED provider and reviewing patient history/pertinent normal/abnormal diagnostic test results. Bilateral leg swelling Multifactorial: Decompensated heart failure, history of systolic dysfunction secondary to ischemic cardiomyopathy, CAD status post recent stent LE cellulitis (L>R), patient unsure about onset of leg redness, no sepsis for now PSVT/PAF PVD as per records CVA hypertension, slightly elevated hyperlipidemia, on statin Rx DM2 on oral medications, well-controlled as of recent hemoglobin A1c of 6.4 last month BPH/right renal mass/right adrenal incidentaloma, patient follows with [facility] urologist chronic anemia, hemoglobin at baseline past tobacco abuse Admit to PCU Diuretic Rx, strict I/O's, daily weights, CHF education, fluid restriction Cardiology consult re: CHF follow-up Doxycycline for cellulitis Basal insulin, ISS BG goal 1 10-1 40, carb count coverage DVT prophylaxis Lovenox subcu Full code Text document was generated using [employer] voice recognition software. It may contain grammatical or spelling errors. Kindly contact undersigned for clarification of any documentation item in question. History of Present Illness Chief Complaint: Bilateral leg swelling Primary Care Provider: Jesse Real DO History obtained from patient and records. Medical history significant for chronic systolic heart failure secondary to ischemic cardiomyopathy (EF 25%, TTE 2024), CAD status post recent stent ([facility] [place] [place], 2024), PSVT/PAF, PVD, CVA, hypertension, hyperlipidemia, DM2 on oral medications, BPH, right renal mass, right adrenal incidentaloma as per records, chronic anemia (baseline hemoglobin 10-11), chronic constipation, mood disorder, past tobacco abuse. Recent [facility] confinement from October 17 to October 31, 2024 for multivessel CAD. Patient transferred to [facility] from [facility] for further management following cardiac catheterization findings at latter hospital which revealed 99% mid LAD stenosis, RCA chronic total occlusion, and 85% stenosis of OM branch of circumflex. TTE showed severely reduced EF of 20% with regional wall abnormalities consistent with ischemic cardiomyopathy. Patient deemed to be a poor surgical candidate for CABG due to frailty as per note. Cardiac MRI confirmed EF of 12%, and significant scar located in the anterior, anteroseptal, and apical keating with no evidence of LV thrombus. Potential benefit from revascularization with note of some viable myocardium. Patient underwent PCI with ALISSA placements to OM 2 and LAD after rotational atherectomy. RCA GERICARE AIDE attempt aborted due to periprocedural bradycardia and hypotension requiring temporary vasopressor support. Patient subsequently discharged to local [facility]. Few days ago, patient noted worsening bilateral leg swelling. Patient not sure about weight gain. Denies chest pain, SOB. No fever, no chills. Usual dry cough symptoms since discharge to [facility]. No improvement with outpatient diuretic Rx. Patient sent to ER for evaluation. IV Lasix administered at the ER. 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 Allergies Allergy/AdvReac Type Severity Reaction Status Date / Time No Known Allergies Allergy Verified 01/17/23 01:26 Home Medications Medication Instructions Recorded Confirmed Type acetaminophen 325 mg tablet 650 mg PO Q4 PRN Fever Or Pain 09/12/22 11/28/24 History (Tylenol) gabapentin 100 mg capsule 100 mg PO BID 09/12/22 11/28/24 History metoprolol succinate 25 mg 12.5 mg (1/2 x 25 mg) PO QAM #15 09/14/22 11/28/24 Rx tablet,extended release 24 hr tabs alpha lipoic acid 300 mg capsule 600 mg PO DAILY 01/17/23 11/28/24 History mirtazapine 15 mg tablet 15 mg PO HS 01/17/23 11/28/24 History finasteride 5 mg tablet 5 mg PO DAILY #90 tabs 05/10/23 11/28/24 Rx ammonium lactate 12 % topical cream 1 applic topical DAILY 11/28/24 11/28/24 History aspirin 81 mg chewable tablet 81 mg PO DAILY 11/28/24 11/28/24 History (Aspirin Childrens) atorvastatin 40 mg tablet 40 mg PO DAILY 11/28/24 11/28/24 History clopidogrel 75 mg tablet 75 mg PO DAILY 11/28/24 11/28/24 History clotrimazole 1 % topical cream 1 applic topical BID 11/28/24 11/28/24 History cyanocobalamin (vitamin B-12) 1,000 mcg PO DAILY 11/28/24 11/28/24 History 1,000 mcg tablet (Vitamin B-12) diclofenac sodium 1 % topical gel 2 g topical QID PRN Pain 11/28/24 11/28/24 History fluticasone propionate 50 2 spray intranasal DAILY 11/28/24 11/28/24 History mcg/actuation nasal spray,suspension furosemide 40 mg tablet 40 mg PO BID 11/28/24 11/28/24 History furosemide 40 mg tablet 40 mg PO UD 11/28/24 11/28/24 History lisinopril 2.5 mg tablet 2.5 mg PO DAILY 11/28/24 11/28/24 History lubiprostone 24 mcg capsule 24 mcg PO DAILY 11/28/24 11/28/24 History melatonin 5 mg capsule 5 mg PO HS 11/28/24 11/28/24 History multivitamin 1 tab PO DAILY 11/28/24 11/28/24 History nitroglycerin 0.4 mg sublingual 0.4 mg sublingual .EVERY 5 MINUTES 11/28/24 11/28/24 History tablet PRN Chest Pain polyethylene glycol 3350 17 17 g PO DAILY PRN Constipation 11/28/24 11/28/24 History gram/dose oral powder polyethylene glycol 3350 17 17 g PO DAILY Constipation 11/28/24 11/28/24 History gram/dose oral powder (Miralax) sennosides 8.6 mg tablet (senna) 15 mg PO DAILY PRN NO BM IN 2 DAYS 11/28/24 11/28/24 History sennosides 8.6 mg-docusate sodium 2 tab-cap PO DAILY 11/28/24 11/28/24 History 50 mg tablet (Senna Plus) Past Med/Surg History Problem List (Updated 11/28/24 @ 23:45 by Charli Bañuelos MD) Bilateral leg edema CHF (congestive heart failure) (Acute) Liver mass, right lobe Acute constipation (Acute) Acute proctitis (Acute) Sepsis (Acute) SIRS (systemic inflammatory response syndrome) Severe sepsis Constipation (Acute) Fever (Acute) Leukocytosis (Acute) Nausea (Acute) Tachycardia (Acute) Sepsis (Acute) Adrenal adenoma Arrhythmia (Acute) Near syncope (Acute) Constipation, chronic Insomnia BPH (benign prostatic hyperplasia) Sinus pause Ventricular tachycardia HLD (hyperlipidemia) Recurrent UTI Near syncope Weakness Depression Dehydration (Acute) Metabolic encephalopathy (Acute) Lethargy Carotid stenosis DVT prophylaxis Enlarged prostate Renal mass UTI (urinary tract infection) (Acute) Urinary retention Duodenal ulcer Paroxysmal supraventricular tachycardia S/P cholecystectomy Closed fracture of right hip (Acute) Diabetes HTN (hypertension) Medical History DMII (diabetes mellitus, type 2) Surgical History History of total hip arthroplasty Family History Other Cancer Lung disease Social History Smoking Status: Never smoker Tobacco Type: Cigarettes Second Hand Exposure: No; Do You Dip or Chew Tobacco: Yes; Hx Alcohol Use: No Hx Substance Use: No Preferred Language: Pakistani Communication Ability: Effective Roving Winder Required: No Beliefs That Will Affect Care: None marital status: Current Living Situation: Spouse How many Children do You have: 2 Feels Safe at Home: Yes Assistive Devices: Cane and Walker Review of Systems Review of Systems: As per HPI, all other systems reviewed and negative Physical Exam Physical Exam: GENERAL: Comfortable, pleasant, no respiratory distress SKIN: Normal color, warm HEENT: Alopecia, Virgie palpebral conjunctivae, no ptosis, moist buccal mucosa NECK : Supple, no tenderness CHEST : Decreased breath sounds, no tenderness HEART : RRR, no obvious murmurs ABDOMEN: Some distention, nontender EXTREMITIES : Bilateral LE swelling without tenderness, LLE erythema greater than RLE erythema NEUROLOGIC : Coherent, no facial asymmetry, gait and stance not assessed Results & Data Results & Data Vital Signs (Past 12 Hours) Vital Signs Temp Pulse Resp BP Pulse Ox O2 Del Method 11/28/24 21:14 77 11/28/24 21:05 96 Room Air 11/28/24 21:01 96 Room Air 11/28/24 20:56 36.5 C 71 18 143/88 H 95 Room Air Laboratory Results Laboratory Results WBC 7.24 K/ul (4.8-10.8) 11/28/24 21:15 RBC 3.62 M/uL (4.70-6.10) L 11/28/24 21:15 Hgb 11.0 g/dl (14.0-18.0) L 11/28/24 21:15 Hct 33.4 % (42.0-52.0) L 11/28/24 21:15 MCV 92.3 fL (80.0-100.0) 11/28/24 21:15 MCH 30.4 pg (25.0-34.0) 11/28/24 21:15 MCHC 32.9 g/dL (32.0-36.0) 11/28/24 21:15 RDW Std Deviation 49.6 fL (36.4-46.3) H 11/28/24 21:15 RDW Coeff of Aleyda 14.6 % (11.5-14.5) H 11/28/24 21:15 Plt Count 288 K/uL (130-400) 11/28/24 21:15 MPV 10.5 fL (9.4-12.4) 11/28/24 21:15 Immature Gran % (Auto) 0.1 % 11/28/24 21:15 Neut % (Auto) 63.9 % 11/28/24 21:15 Lymph % (Auto) 25.4 % 11/28/24 21:15 Esmeralda % (Auto) 9.1 % 11/28/24 21:15 Eos % (Auto) 1.1 % 11/28/24 21:15 Baso % (Auto) 0.4 % 11/28/24 21:15 Neut # (Auto) 4.62 K/uL (1.40-6.50) 11/28/24 21:15 Lymph # (Auto) 1.84 K/uL (1.20-3.40) 11/28/24 21:15 Esmeralda # (Auto) 0.66 K/uL (0.11-0.59) H 11/28/24 21:15 Eos # (Auto) 0.08 K/uL (0.00-0.50) 11/28/24 21:15 Baso # (Auto) 0.03 K/uL (0.00-0.20) 11/28/24 21:15 Immature Gran # (Auto) 0.01 K/uL (0.01-0.20) 11/28/24 21:15 PT 11.7 Seconds (9.0-12.0) 11/28/24 21:15 INR 1.1 (0.9-1.1) 06/19/25 21:15 APTT 30 Seconds (21-31) 11/28/24 21:15 PTT Ratio 1.1 11/28/24 21:15 Sodium 140 mmol/L (136-145) 11/28/24 21:15 Potassium 3.9 mmol/L (3.5-5.1) 11/28/24 21:15 Chloride 107 mmol/L (98-107) 11/28/24 21:15 Carbon Dioxide 26 mmol/L (21-32) 11/28/24 21:15 Anion Gap 7 (3-11) 11/28/24 21:15 BUN 24 mg/dl (6-23) H 11/28/24 21:15 Creatinine 0.76 mg/dl (0.6-1.4) 11/28/24 21:15 Est Cr Clr Drug Dosing Not Reportable 11/28/24 21:15 eGFR 90.86 11/28/24 21:15 BUN/Creatinine Ratio 31.6 (10-20) H 11/28/24 21:15 Glucose 90 mg/dl (70-99(Fasting)) 11/28/24 21:15 Calcium 8.9 mg/dl (8.6-10.3) 11/28/24 21:15 Magnesium 1.8 mg/dl (1.7-2.4) 11/28/24 21:15 Troponin I High Sens 55.2 pg/ml (0-20) H* 11/28/24 21:15 B-Natriuretic Peptide 1636 pg/ml (0-100) H 11/28/24 21:15 Lipase 77 U/L (11-82) 11/28/24 21:15 Diagnostic Findings Chest x-ray as per my interpretation congestion, atelectasis EKG as per my interpretation : Rate 80, NSR, normal axis, septal infarct, inferior infarct, nonspecific T wave abnormalities, PVCs
[2024-11-28] MEDS: POTASSIUM CHLORIDE CRTAB 20 MEQ TABCR PO STA (22:29)
[2024-11-28] MEDS: MAGNESIUM SULFATE / D5W 1 GM/100 ML BAG IV ONE (22:32)
--- NOTE | 2024-11-28 23:00 | XRay Report ---
Exam(s): XR CXR 1 VIEW EXAM: XR Chest, 1 View CLINICAL HISTORY: Reason for exam: Chest pain, nonspecific. TECHNIQUE: Frontal view of the chest. COMPARISON: Prior chest x-ray from March 07, 2024. FINDINGS: Lungs: Moderate peribronchial thickening of the central lower lobe bronchi with increased interstitial opacities. There are low lung volumes, limiting the duration of the lung bases. Pleural space: There is blunting the left costophrenic angle. No pneumothorax. Heart: Unremarkable. No cardiomegaly. Mediastinum: Unremarkable. Normal mediastinal contour. Bones/joints: Unremarkable. No acute fracture. IMPRESSION: Bronchitis, which may be of infectious or inflammatory etiologies. Tiny left pleural effusion. Electronically signed by: Therese Lopez MD 11/28/24 22:59 PM
[2024-11-28] MEDS ORDERED: DICLOFENAC SOD 1% GEL 100 GM TUBE EXT PRN (23:05)
[2024-11-28] MEDS ORDERED: oxyCODONE HCL IR 5 MG TAB (IMMEDIATE RELEASE) PO PRN (23:07)
[2024-11-28] MEDS ORDERED: PROMETHAZINE 6.25 MG/50.25 ML BAG IV PRN (23:07)
--- NOTE | 2024-11-28 23:29 | Emergency Department Note ---
History of Present Illness General Chief complaint: Swelling/Edema to Extremity Stated complaint: LEG SWELLING Time Seen by Provider: 11/28/24 21:01 Source: patient and family (Son at bedside) History of Present Illness Provider complaint: Lower extremity swelling Onset (ago): week(s) 2 79-year-old male presents emergency department for lower extremity edema. Son reports that the patient has a history of CHF. Patient reports that his lower extremity edema has been present for some time but has been gotten worse over the last 2 weeks. He reports he has been taking oral Lasix but is not been helping. Patient reports no chest pain or difficulty breathing. Home Medications Medication Instructions Recorded Confirmed Type acetaminophen 325 mg tablet 650 mg PO Q4 PRN Fever Or Pain 09/12/22 11/28/24 History (Tylenol) gabapentin 100 mg capsule 100 mg PO BID 09/12/22 11/28/24 History metoprolol succinate 25 mg 12.5 mg (1/2 x 25 mg) PO QAM #15 09/14/22 11/28/24 Rx tablet,extended release 24 hr tabs alpha lipoic acid 300 mg capsule 600 mg PO DAILY 01/17/23 11/28/24 History mirtazapine 15 mg tablet 15 mg PO HS 01/17/23 11/28/24 History finasteride 5 mg tablet 5 mg PO DAILY #90 tabs 05/10/23 11/28/24 Rx ammonium lactate 12 % topical cream 1 applic topical DAILY 11/28/24 11/28/24 History aspirin 81 mg chewable tablet 81 mg PO DAILY 11/28/24 11/28/24 History (Aspirin Childrens) atorvastatin 40 mg tablet 40 mg PO DAILY 11/28/24 11/28/24 History clopidogrel 75 mg tablet 75 mg PO DAILY 11/28/24 11/28/24 History clotrimazole 1 % topical cream 1 applic topical BID 11/28/24 11/28/24 History cyanocobalamin (vitamin B-12) 1,000 mcg PO DAILY 11/28/24 11/28/24 History 1,000 mcg tablet (Vitamin B-12) diclofenac sodium 1 % topical gel 2 g topical QID PRN Pain 11/28/24 11/28/24 History fluticasone propionate 50 2 spray intranasal DAILY 11/28/24 11/28/24 History mcg/actuation nasal spray,suspension furosemide 40 mg tablet 40 mg PO BID 11/28/24 11/28/24 History furosemide 40 mg tablet 40 mg PO UD 11/28/24 11/28/24 History lisinopril 2.5 mg tablet 2.5 mg PO DAILY 11/28/24 11/28/24 History lubiprostone 24 mcg capsule 24 mcg PO DAILY 11/28/24 11/28/24 History melatonin 5 mg capsule 5 mg PO HS 11/28/24 11/28/24 History multivitamin 1 tab PO DAILY 11/28/24 11/28/24 History nitroglycerin 0.4 mg sublingual 0.4 mg sublingual .EVERY 5 MINUTES 11/28/24 11/28/24 History tablet PRN Chest Pain polyethylene glycol 3350 17 17 g PO DAILY PRN Constipation 11/28/24 11/28/24 History gram/dose oral powder polyethylene glycol 3350 17 17 g PO DAILY Constipation 11/28/24 11/28/24 History gram/dose oral powder (Miralax) sennosides 8.6 mg tablet (senna) 15 mg PO DAILY PRN NO BM IN 2 DAYS 11/28/24 11/28/24 History sennosides 8.6 mg-docusate sodium 2 tab-cap PO DAILY 11/28/24 11/28/24 History 50 mg tablet (Senna Plus) Allergies Allergy/AdvReac Type Severity Reaction Status Date / Time No Known Allergies Allergy Verified 01/17/23 01:26 Past Med/Surg History Problem List (Updated 11/28/24 @ 23:38 by Misael Wilkins MD) CHF (congestive heart failure) (Acute) Liver mass, right lobe Acute constipation (Acute) Acute proctitis (Acute) Sepsis (Acute) SIRS (systemic inflammatory response syndrome) Severe sepsis Constipation (Acute) Fever (Acute) Leukocytosis (Acute) Nausea (Acute) Tachycardia (Acute) Sepsis (Acute) Adrenal adenoma Arrhythmia (Acute) Near syncope (Acute) Constipation, chronic Insomnia BPH (benign prostatic hyperplasia) Sinus pause Ventricular tachycardia HLD (hyperlipidemia) Recurrent UTI Near syncope Weakness Depression Dehydration (Acute) Metabolic encephalopathy (Acute) Lethargy Carotid stenosis DVT prophylaxis Enlarged prostate Renal mass UTI (urinary tract infection) (Acute) Urinary retention Duodenal ulcer Paroxysmal supraventricular tachycardia S/P cholecystectomy Closed fracture of right hip (Acute) Diabetes HTN (hypertension) Medical History DMII (diabetes mellitus, type 2) Surgical History History of total hip arthroplasty Family History Other Cancer Lung disease Social History Smoking Status: Never smoker Tobacco Type: Cigarettes Second Hand Exposure: No; Do You Dip or Chew Tobacco: Yes; Hx Alcohol Use: No Hx Substance Use: No Preferred Language: Liberian Communication Ability: Effective 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 Beliefs That Will Affect Care: None marital status: Current Living Situation: Spouse How many Children do You have: 2 Feels Safe at Home: Yes Assistive Devices: Cane and Walker Physical Exam Vital Signs Vital Signs - 24 hr 11/28/24 20:56 11/28/24 21:01 11/28/24 21:05 Temperature 36.5 C Temperature Source Temporal Artery Scan Pulse Rate 71 Respiratory Rate 18 Respiratory Effort / Characteristics Non-Labored Spontaneous Respiratory Depth Normal Respiratory Pattern Regular Blood Pressure 143/88 H Blood Pressure Mean 106 Blood Pressure Position Sitting Pulse Oximetry 95 96 96 Oxygen Delivery Method Room Air Room Air Room Air Sepsis Recent Fever Within 48 Hours No Sepsis New/Unexplained Change in Mental Status N/A Sepsis Action Taken by Nursing No Action Required 11/28/24 21:14 Temperature Temperature Source Pulse Rate 77 Respiratory Rate Respiratory Effort / Characteristics Respiratory Depth Respiratory Pattern Blood Pressure Blood Pressure Mean Blood Pressure Position Pulse Oximetry Oxygen Delivery Method Sepsis Recent Fever Within 48 Hours Sepsis New/Unexplained Change in Mental Status Sepsis Action Taken by Nursing Physical Exam GENERAL: oriented to person, place, and time. appears well-developed and well- nourished. HENT: Exam performed. - Head: Normocephalic and atraumatic. EYES: Conjunctivae and EOM are normal. Right eye exhibits no discharge. Left eye exhibits no discharge. No scleral icterus. NECK: Normal range of motion. Neck supple. No JVD present. CV: Normal rate, regular rhythm, normal heart sounds and intact distal pulses. 2+ pitting edema of the bilateral lower extremities. Palpable radial pulses bue. PULM/CHEST: Effort normal and breath sounds normal. No respiratory distress. No stridor. no wheezes. no rales. ABD: The abdomen is soft. There is no tenderness. NEURO: Motor and sensation grossly intact. SKIN: Skin is warm and dry. He is not diaphoretic. PSYCH: normal mood and affect. Behavior is normal. Judgment and thought content normal. Course Course 2100: The patient was evaluated in room C12. A complete history and physical exam was performed Cardiac monitoring: An order was placed for continuous cardiac monitoring. The monitor shows a rate of 80 with sinus rhythm interpreted by me 2210: Vital signs stable. Labs show white blood cell count 7.24 hemoglobin 11 platelet count 288 coagulation studies are unremarkable. proBNP 1636. High- sensitivity troponin 55.2. Patient not reporting any chest pain or difficulty breathing. Ultrasound of the bilateral lower extremities viewed by me showed no DVT. Chest x-ray viewed by me shows cardiomegaly with cephalization. [facility] be treated with IV Lasix [facility] Patient and son are in agreement about admission. Administered Medications Magnesium Sulfate/Dextrose (Magnesium Sulfate / D5w) 1 gm in 100 mls @ 50 mls/hr IV ONE ONE Stop: 11/29/24 00:14 Last Admin: 11/28/24 22:32 Dose: 50 mls/hr Documented By: YVONNE Discontinued Medications Furosemide (Furosemide 40 Mg/4 Ml Vial) 40 mg IV ONE ONE Stop: 11/28/24 22:09 Last Admin: 11/28/24 22:15 Dose: 40 mg Documented By: YVONNE Potassium Chloride (Potassium Chloride Crtab 20 Meq Tabcr) 20 meq PO NOW STA Stop: 11/28/24 22:16 Last Admin: 11/28/24 22:29 Dose: 20 meq Documented By: YVONNE Medical Decision Making Laboratory Data Attestation: I reviewed the patient's lab results. 11/28/24 21:15 11/28/24 21:15 Lab Results 11/28/24 Range/Units 21:15 WBC 7.24 (4.8-10.8) K/ul RBC 3.62 L (4.70-6.10) M/uL Hgb 11.0 L (14.0-18.0) g/dl Hct 33.4 L (42.0-52.0) % MCV 92.3 (80.0-100.0) fL MCH 30.4 (25.0-34.0) pg MCHC 32.9 (32.0-36.0) g/dL RDW Std Deviation 49.6 H (36.4-46.3) fL RDW Coeff of Aleyda 14.6 H (11.5-14.5) % Plt Count 288 (130-400) K/uL MPV 10.5 (9.4-12.4) fL Immature Gran % (Auto) 0.1 % Neut % (Auto) 63.9 % Lymph % (Auto) 25.4 % [place] % (Auto) 9.1 % Eos % (Auto) 1.1 % Baso % (Auto) 0.4 % Neut # (Auto) 4.62 (1.40-6.50) K/uL Lymph # (Auto) 1.84 (1.20-3.40) K/uL [place] # (Auto) 0.66 H (0.11-0.59) K/uL Eos # (Auto) 0.08 (0.00-0.50) K/uL Baso # (Auto) 0.03 (0.00-0.20) K/uL Immature Gran # (Auto) 0.01 (0.01-0.20) K/uL PT 11.7 (9.0-12.0) Seconds INR 1.1 (0.9-1.1) APTT 30 (21-31) Seconds PTT Ratio 1.1 Sodium 140 (136-145) mmol/L Potassium 3.9 (3.5-5.1) mmol/L Chloride 107 (98-107) mmol/L Carbon Dioxide 26 (21-32) mmol/L Anion Gap 7 (3-11) BUN 24 H (6-23) mg/dl Creatinine 0.76 (0.6-1.4) mg/dl Est Cr Clr Drug Dosing Not Reportable eGFR 90.86 BUN/Creatinine Ratio 31.6 H (10-20) Glucose 90 (70-99(Fasting)) mg/dl Calcium 8.9 (8.6-10.3) mg/dl Magnesium 1.8 (1.7-2.4) mg/dl Troponin I High Sens 55.2 H* (0-20) pg/ml B-Natriuretic Peptide 1636 H (0-100) pg/ml Lipase 77 (11-82) U/L Imaging Data Attestation: I personally reviewed and interpreted this imaging study as follows: My Impression: Ultrasound of the bilateral lower extremities viewed by me showed no DVT. Chest x-ray viewed by me shows cardiomegaly with cephalization. Radiologist's Impression: Chest X-Ray 11/28/24 21:05 Exam(s): XR CXR 1 VIEW EXAM: XR Chest, 1 View CLINICAL HISTORY: Reason for exam: Chest pain, nonspecific. TECHNIQUE: Frontal view of the chest. COMPARISON: Prior chest x-ray from March 07, 2024. FINDINGS: Lungs: Moderate peribronchial thickening of the central lower lobe bronchi with increased interstitial opacities. There are low lung volumes, limiting the duration of the lung bases. Pleural space: There is blunting the left costophrenic angle. No pneumothorax. Heart: Unremarkable. No cardiomegaly. Mediastinum: Unremarkable. Normal mediastinal contour. Bones/joints: Unremarkable. No acute fracture. IMPRESSION: Bronchitis, which may be of infectious or inflammatory etiologies. Tiny left pleural effusion. Electronically signed by: Therese Lopez MD 11/28/24 22:59 PM ECG Data Attestation: I personally reviewed and interpreted this ECG as follows: Rate (beats per minute): 78 Rhythm: + normal sinus ECG Intervals/blocks: + Normal QRS, + Prolonged QT and + Normal NV ECG ST segments: + Normal ST segments MDM Narrative 2101: The patient was evaluated in room C12. A complete history and physical exam was performed Cardiac monitoring: An order was placed for continuous cardiac monitoring. The monitor shows a rate of 80 with sinus rhythm interpreted by me 2210: Vital signs stable. Labs show white blood cell count 7.24 hemoglobin 11 platelet count 288 coagulation studies are unremarkable. proBNP 1636. High- sensitivity troponin 55.2. Patient not reporting any chest pain or difficulty breathing. Ultrasound of the bilateral lower extremities viewed by me showed no DVT. Chest x-ray viewed by me shows cardiomegaly with cephalization. Patient be treated with IV Lasix [facility] Patient and son are in agreement about admission. Impression & Plan CHF (congestive heart failure) Discharge Plan Visit Data Chief Complaint: Swelling/Edema to Extremity Stated Complaint: LEG SWELLING ED Provider: Misael Wilkins Discharge Problem: CHF (congestive heart failure) Patient Disposition: Being Evaluated by Hospitalist Condition: Good Forms Stand Alone Forms: My [facility] Prescriptions Prescriptions: No Action finasteride 5 mg tablet 5 mg PO DAILY Qty: 90 3RF acetaminophen [Tylenol] 325 mg Tablet 650 mg PO Q4 PRN (Reason: Fever Or Pain) gabapentin 100 mg capsule 100 mg PO BID metoprolol succinate 25 mg Tablet Extended Release 24 Hr 12.5 mg PO QAM Qty: 15 0RF Rx Instructions: HOLD FOR SBP <100 HR <60 AND NOTIFY mirtazapine 15 mg tablet 15 mg PO HS alpha lipoic acid 300 mg Capsule 600 mg PO DAILY furosemide 40 mg tablet 40 mg PO UD Rx Instructions: RESUME TAKE DAILY ON 12/02/24 lisinopril 2.5 mg tablet 2.5 mg PO DAILY multivitamin Tablet 1 tab PO DAILY polyethylene glycol 3350 [Miralax] 17 gram/dose powder 17 g PO DAILY lubiprostone 24 mcg capsule 24 mcg PO DAILY Rx Instructions: HOLD FOR LOOSE STOOLS melatonin 5 mg Capsule 5 mg PO HS atorvastatin 40 mg tablet 40 mg PO DAILY clopidogrel 75 mg tablet 75 mg PO DAILY aspirin [Aspirin Childrens] 81 mg Tablet,Chewable 81 mg PO DAILY furosemide 40 mg tablet 40 mg PO BID Rx Instructions: TAKE FOR 3 DAYS 11/29/24-12/02/24 fluticasone propionate [Flonase] 50 mcg/actuation [place],Suspension 2 spray INTRANASAL DAILY Rx Instructions: administer into each nostril sennosides-docusate sodium [Senna Plus] 8.6-50 mg Tablet 2 tab-cap PO DAILY cyanocobalamin (vitamin B-12) [Vitamin B-12] 1,000 mcg Tablet 1,000 mcg PO DAILY ammonium lactate 12 % cream 1 applic TOPICAL DAILY Rx Instructions: APPLY TO FEET FOR DRY SKIN diclofenac sodium 1 % gel 2 g TOPICAL QID PRN (Reason: Pain) Rx Instructions: TO AFFECTED AREA clotrimazole 1 % Cream 1 applic TOPICAL BID Rx Instructions: APPLY TO LEFT 5TH FINGER FOR RASH nitroglycerin 0.4 mg tablet, sublingual 0.4 mg sublingual .EVERY 5 MINUTES MDD MAX OF 3 TABS PRN (Reason: Chest Pain) polyethylene glycol 3350 17 gram/dose Powder 17 g PO DAILY PRN (Reason: Constipation) sennosides [senna] 8.6 mg Tablet 15 mg PO DAILY PRN (Reason: NO BM IN 2 DAYS) Referrals Referrals: Jesse Real DO [Primary Care Provider] - Discharge Problem: CHF (congestive heart failure) Qualifiers: Heart failure type: unspecified Heart failure chronicity: acute on chronic Q ualified Code(s): I50.9 - Heart failure, unspecified
[2024-11-28] MEDS: DOXYCYCLINE HYCLATE 100 MG in DEXTROSE 5% MINI-B 100 ML IV STA (23:33)
[2024-11-28] MEDS: MELATONIN 3 MG TAB PO SCH (23:33)
--- NOTE | 2024-11-28 23:33 | Ultrasound Report ---
Exam(s): US VENOUS BILATERAL LOWER EXTREMITIES EXAM: US Duplex Bilateral Lower Extremities Veins CLINICAL HISTORY: Reason for exam: ro DVT. TECHNIQUE: Real-time duplex ultrasound scan of the bilateral lower extremity veins integrating B-mode two-dimensional vascular structure, Doppler spectral analysis, color flow Doppler imaging and compression. COMPARISON: No relevant prior studies available. FINDINGS: Right deep veins: Unremarkable. No DVT in the right common femoral, femoral, proximal deep femoral or popliteal veins. The veins demonstrate normal color flow, are normally compressible, with normal phasic flow and/or augmentation response. Right superficial veins: Unremarkable. No thrombus in the visualized right great saphenous vein. Left deep veins: Unremarkable. No DVT in the left common femoral, femoral, proximal deep femoral or popliteal veins. The veins demonstrate normal color flow, are normally compressible, with normal phasic flow and/or augmentation response. Left superficial veins: Unremarkable. No thrombus in the visualized left great saphenous vein. Soft tissues: Subcutaneous edema in both lower extremities. There is a 1.8 x 0.7 x 1.5 cm fluid collection in the left popliteal fossa consistent with a Meier's cyst. IMPRESSION: 1. Subcutaneous edema in both lower extremities. 2. There is a 1.8 x 0.7 x 1.5 cm fluid collection in the left popliteal fossa consistent with a Meier's cyst. 3. No evidence of DVT in either lower extremity. Electronically signed by: Aidan Luis MD 11/28/24 23:32 PM
[2024-11-29] MEDS ORDERED: DEXTROSE 50% 50 ML SYRINGE IV PRN (00:33)
[2024-11-29] MEDS ORDERED: GLUCOSE 10 TAB/TUBE PO PRN (00:33)
[2024-11-29] MEDS ORDERED: GLUCAGON FOR INJ 1 MG VIAL SQ PRN (00:33)
[2024-11-29] MEDS ORDERED: GLUCOSE 40% GEL 15 GM TUBE PO PRN (00:33)
[2024-11-29] MEDS ORDERED: CARBOHYDRATES FOR HYPOGLYCEMIA PO PRN (00:33)
[2024-11-29] MEDS: INSULIN ASPART PER UNIT CHARGE SC SCH (01:45)
[2024-11-29 05:59] LABS: Basophils # (auto) 0.02 K/uL (0.00-0.20); Basophils % (auto) 0.4 %; Eosinophils % (auto) 1.8 %; Hematocrit (blood only) 28.3 % (42.0-52.0); Hemoglobin 9.3 g/dl (14.0-18.0); Immature Granulocytes # (auto) 0.01 K/uL (0.01-0.20); Immature Granulocytes % (auto) 0.2 %; Lymphocytes # (auto) 1.24 K/uL (1.20-3.40); Lymphocytes % (auto) 21.8 %; Mean Corpuscular Hemoglobin 29.8 pg (25.0-34.0); Mean Corpuscular Hgb Conc 32.9 g/dL (32.0-36.0); Mean Corpuscular Volume 90.7 fL (80.0-100.0); Mean Platelet Volume 10.4 fL (9.4-12.4); Monocytes # (auto) 0.68 K/uL (0.11-0.59); Neutrophils # (auto) 3.63 K/uL (1.40-6.50); Neutrophils % (auto) 63.8 %; Platelet Count 218 K/uL (130-400); RDW Coefficient of Variation 14.8 % (11.5-14.5); Red Blood Count 3.12 M/uL (4.70-6.10); White Blood Count 5.68 K/ul (4.8-10.8)
[2024-11-29 06:50] LABS: BUN Creatinine Ratio 34.4 (10-20); Calcium 8.3 mg/dl (8.6-10.3); Creatinine Clr Calc Pharmacy 115.4 ml/min; Potassium 3.7 mmol/L (3.5-5.1)
--- NOTE | 2024-11-29 07:35 | Hospitalist Progress Note ---
Date of Service November 29, 2024 Assessment & Plan (1) Bilateral leg edema: Plan: Mr. Welsh is an 79 year old gentleman with a past medical history of DM2, hyperlipidemia, HTN, CVA, SVT, CAD, right kidney mass, BPH, adrenal adenoma, depression who is admitted for BLE 2/2 acute on chronic heart failure with reduced EF (~12% 10/2024) Downtrending Hgb, s/p venofer in 10/2021 due to hgb downtrending #chronic iron deficient anemia 1 dose of IV Venofer during admission 10/2024 2/2 decreasing Hgb. ferritin 91 s/p 1 Unit Venofer, will limit 2/2 volume 11/29 baseline as op running 9-10 as of recent admission #Acute on chronic HFrEF (LVEF 12% on cardiac MRI 10/2024) #Ischemic cardiomyopathy iso severe multivessel CAD s/p ALISSA OM2, 1 ALISSA LAD 10/2024 * Prox RCA 100% [employer] with L-R collaterals. * Mid LAD 100% TECHNOLOGIES [employer]ISION CHAIR with L-L collaterals. * Prox OM2 80% stenosis - Dry weight: 72.3kg on 10/28, 91.94kg on admission 11/29 - Home diuretics: Lasix 40mg daily - GDMT: *BetaB: continue metoprolol xl 12.5 qam *RAAS: c/w home lisniopril 2.5 mg *Addison: not on *SGLT: not on - s/p 40mg IV lasix in the ED Home anitha - continue diuresis with lasix 40mg IV BID - Strict I/Os, daily weights, fluid restriction replace electrolytes prn continue statin continue dapt Cardiology on consult #Cellulitis #Bilateral leg swelling LE cellulitis (L>R), patient unsure about onset of leg redness, no sepsis for now continue doxy for now #PSVT continue metoprolol history of prior digoxin monitor on tele #CVA contiue statin and dapt #HLD continue statin #DM2 recent hemoglobin A1c of 6.4 10/2024 basal bolus insulin while admitted #BPH/right renal mass/right adrenal incidentaloma patient follows with [facility]ist DVT prophylaxis Lovenox subcu Full code PT/OT ordered Admission and Anticipated Discharge Date Admission Date: November 28, 2024 Subjective NAEO reports subjective improvement States that he feels his symptoms have been progressive since discharge from [place] 10/2024, however, his ankles are always somewhat swollen--he never experienced edema above the knee Denies chest pain, palpitations---denies active SOB, but reports some GRIFFIN on Monday reports feeling exhausted as he was in ed at 2100 and admitted at 0100 Physical Exam Constitutional: WD/WN, vitals as above (seemingly lethargic/tired, but interactive and AOx3) Cardiovascular: ANNMARIE+ RRR Gastrointestinal (Abdomen): normal bowel sounds, soft, nontender, no hepatosp lenomegaly Musculoskeletal: BLE edema 2+ pitting just below the knee, notable ankle/pedal swelling, few wounds covered on LLE with bandages and some surrounding erythema Results & Data Results & Data Vital Signs (Past 12 Hours) Vital Signs Temp Pulse Pulse Resp BP BP Pulse Ox 11/29/24 04:21 36.6 C 81 18 109/62 92 11/29/24 00:37 11/29/24 00:33 11/29/24 00:05 36.7 C 80 20 153/84 H 95 11/28/24 23:41 11/28/24 23:00 74 16 151/85 H 98 11/28/24 21:14 77 11/28/24 21:05 96 11/28/24 21:01 96 11/28/24 20:56 36.5 C 71 18 143/88 H 95 O2 Del Method O2 Del Method 11/29/24 04:21 Room Air 11/29/24 00:37 Room Air 11/29/24 00:33 Room Air 11/29/24 00:05 Room Air 11/28/24 23:41 Room Air 11/28/24 23:00 Room Air 11/28/24 21:14 11/28/24 21:05 Room Air 11/28/24 21:01 Room Air 11/28/24 20:56 Room Air Laboratory Results Short CBC 11/28/24 11/29/24 Range/Units 21:15 05:32 WBC 7.24 5.68 (4.8-10.8) K/ul Hgb 11.0 L 9.3 L (14.0-18.0) g/dl Hct 33.4 L 28.3 L (42.0-52.0) % Plt Count 288 218 (130-400) K/uL BMP 11/28/24 11/29/24 21:15 05:32 Sodium 140 140 Potassium 3.9 3.7 Chloride 107 108 H Carbon Dioxide 26 26 BUN 24 H 21 Creatinine 0.76 0.61 Glucose 90 89 Calcium 8.9 8.3 L Diagnostic Findings Home Medications Medication Instructions Recorded Confirmed Last Taken acetaminophen 325 mg tablet 650 mg PO Q4 PRN Fever Or Pain 09/12/22 11/28/24 Unknown (Tylenol) gabapentin 100 mg capsule 100 mg PO BID 09/12/22 11/28/24 01/16/23 metoprolol succinate 25 mg 12.5 mg (1/2 x 25 mg) PO QAM #15 09/14/22 11/28/24 01/16/23 tablet,extended release 24 hr tabs alpha lipoic acid 300 mg capsule 600 mg PO DAILY 01/17/23 11/28/24 01/16/23 mirtazapine 15 mg tablet 15 mg PO HS 01/17/23 11/28/24 01/16/23 finasteride 5 mg tablet 5 mg PO DAILY #90 tabs 05/10/23 11/28/24 Unknown ammonium lactate 12 % topical cream 1 applic topical DAILY 11/28/24 11/28/24 Unknown aspirin 81 mg chewable tablet 81 mg PO DAILY 11/28/24 11/28/24 Unknown (Aspirin Childrens) atorvastatin 40 mg tablet 40 mg PO DAILY 11/28/24 11/28/24 Unknown clopidogrel 75 mg tablet 75 mg PO DAILY 11/28/24 11/28/24 Unknown clotrimazole 1 % topical cream 1 applic topical BID 11/28/24 11/28/24 Unknown cyanocobalamin (vitamin B-12) 1,000 mcg PO DAILY 11/28/24 11/28/24 Unknown 1,000 mcg tablet (Vitamin B-12) diclofenac sodium 1 % topical gel 2 g topical QID PRN Pain 11/28/24 11/28/24 Unknown fluticasone propionate 50 2 spray intranasal DAILY 11/28/24 11/28/24 Unknown mcg/actuation nasal spray,suspension furosemide 40 mg tablet 40 mg PO BID 11/28/24 11/28/24 Unknown furosemide 40 mg tablet 40 mg PO UD 11/28/24 11/28/24 Unknown lisinopril 2.5 mg tablet 2.5 mg PO DAILY 11/28/24 11/28/24 Unknown lubiprostone 24 mcg capsule 24 mcg PO DAILY 11/28/24 11/28/24 Unknown melatonin 5 mg capsule 5 mg PO HS 11/28/24 11/28/24 Unknown multivitamin 1 tab PO DAILY 11/28/24 11/28/24 Unknown nitroglycerin 0.4 mg sublingual 0.4 mg sublingual .EVERY 5 MINUTES 11/28/24 11/28/24 Unknown tablet PRN Chest Pain polyethylene glycol 3350 17 17 g PO DAILY PRN Constipation 11/28/24 11/28/24 Unknown gram/dose oral powder polyethylene glycol 3350 17 17 g PO DAILY Constipation 11/28/24 11/28/24 Unknown gram/dose oral powder (Miralax) sennosides 8.6 mg tablet (senna) 15 mg PO DAILY PRN NO BM IN 2 DAYS 11/28/24 11/28/24 Unknown sennosides 8.6 mg-docusate sodium 2 tab-cap PO DAILY 11/28/24 11/28/24 Unknown 50 mg tablet (Senna Plus) Active Medications Generic Name Dose Route Start Last Admin Trade Name Freq PRN Reason Stop Dose Admin Insulin Aspart 0 units 11/29/24 00:33 11/29/24 01:45 Insulin Aspart Per Unit Charge SC 12/29/24 00:32 2 units ACHS RADHA Administration Melatonin 3 mg 11/28/24 23:05 11/29/24 00:17 Melatonin 3 Mg Tab PO 12/28/24 23:04 3 mg HS RADHA Administration Medications Administered Home Medications Medication Instructions Recorded Confirmed Last Taken acetaminophen 325 mg tablet 650 mg PO Q4 PRN Fever Or Pain 09/12/22 11/28/24 Unknown (Tylenol) gabapentin 100 mg capsule 100 mg PO BID 09/12/22 11/28/24 01/16/23 metoprolol succinate 25 mg 12.5 mg (1/2 x 25 mg) PO QAM #15 09/14/22 11/28/24 01/16/23 tablet,extended release 24 hr tabs alpha lipoic acid 300 mg capsule 600 mg PO DAILY 01/17/23 11/28/24 01/16/23 mirtazapine 15 mg tablet 15 mg PO HS 01/17/23 11/28/24 01/16/23 finasteride 5 mg tablet 5 mg PO DAILY #90 tabs 05/10/23 11/28/24 Unknown ammonium lactate 12 % topical cream 1 applic topical DAILY 11/28/24 11/28/24 Unknown aspirin 81 mg chewable tablet 81 mg PO DAILY 11/28/24 11/28/24 Unknown (Aspirin Childrens) atorvastatin 40 mg tablet 40 mg PO DAILY 11/28/24 11/28/24 Unknown clopidogrel 75 mg tablet 75 mg PO DAILY 11/28/24 11/28/24 Unknown clotrimazole 1 % topical cream 1 applic topical BID 11/28/24 11/28/24 Unknown cyanocobalamin (vitamin B-12) 1,000 mcg PO DAILY 11/28/24 11/28/24 Unknown 1,000 mcg tablet (Vitamin B-12) diclofenac sodium 1 % topical gel 2 g topical QID PRN Pain 11/28/24 11/28/24 Unknown fluticasone propionate 50 2 spray intranasal DAILY 11/28/24 11/28/24 Unknown mcg/actuation nasal spray,suspension furosemide 40 mg tablet 40 mg PO BID 11/28/24 11/28/24 Unknown furosemide 40 mg tablet 40 mg PO UD 11/28/24 11/28/24 Unknown lisinopril 2.5 mg tablet 2.5 mg PO DAILY 11/28/24 11/28/24 Unknown lubiprostone 24 mcg capsule 24 mcg PO DAILY 11/28/24 11/28/24 Unknown melatonin 5 mg capsule 5 mg PO HS 11/28/24 11/28/24 Unknown multivitamin 1 tab PO DAILY 11/28/24 11/28/24 Unknown nitroglycerin 0.4 mg sublingual 0.4 mg sublingual .EVERY 5 MINUTES 11/28/24 11/28/24 Unknown tablet PRN Chest Pain polyethylene glycol 3350 17 17 g PO DAILY PRN Constipation 11/28/24 11/28/24 Unknown gram/dose oral powder polyethylene glycol 3350 17 17 g PO DAILY Constipation 11/28/24 11/28/24 Unknown gram/dose oral powder (Miralax) sennosides 8.6 mg tablet (senna) 15 mg PO DAILY PRN NO BM IN 2 DAYS 11/28/24 11/28/24 Unknown sennosides 8.6 mg-docusate sodium 2 tab-cap PO DAILY 11/28/24 11/28/24 Unknown 50 mg tablet (Senna Plus) Active Medications Generic Name Dose Route Start Last Admin Trade Name Bibi PRN Reason Stop Dose Admin Insulin Aspart 0 units 11/29/24 00:33 11/29/24 01:45 Insulin Aspart Per Unit Charge SC 12/29/24 00:32 2 units ACHS RADHA Administration Melatonin 3 mg 11/28/24 23:05 11/29/24 00:17 Melatonin 3 Mg Tab PO 12/28/24 23:04 3 mg HS RADHA Administration
[2024-11-29] MEDS ORDERED: FUROSEMIDE 40 MG/4 ML VIAL IV ONE (08:00)
[2024-11-29] MEDS: CYANOCOBALAMIN (B-12) 500 MCG TABLET PO SCH (08:16)
[2024-11-29] MEDS: ENOXAPARIN INJ 40 MG/0.4 ML SYR SQ SCH (08:16)
[2024-11-29] MEDS: DOXYCYCLINE HYCLATE 100 MG CAP PO SCH (08:16)
[2024-11-29] MEDS: FINASTERIDE 5 MG TAB PO SCH (08:16)
[2024-11-29] MEDS: FUROSEMIDE 40 MG/4 ML VIAL IV SCH (08:16)
[2024-11-29] MEDS: LUBIPROSTONE 8 MCG CAP PO SCH (08:17)
[2024-11-29] MEDS: ASPIRIN 81 MG ECTAB PO SCH (08:17)
[2024-11-29] MEDS: ATORVASTATIN 40 MG TAB PO SCH (08:17)
[2024-11-29] MEDS: GABAPENTIN 100 MG CAP PO SCH (08:17)
[2024-11-29] MEDS: lisinopril 2.5 MG TAB PO SCH (08:17)
[2024-11-29] MEDS: METOPROLOL SUCC 25MG EXT REL TAB PO SCH (08:18)
[2024-11-29] MEDS: POLYETHYLENE (MIRALAX) 17 GM PACK PO SCH (08:18)
[2024-11-29] MEDS: MULTIVITAMIN TAB PO SCH (08:18)
[2024-11-29] MEDS: DOCUSATE SODIUM/SENNA 50/8.6MG TAB PO SCH (08:18)
[2024-11-29] MEDS: CLOPIDOGREL BISULFATE 75 MG TAB PO SCH (08:18)
--- NOTE | 2024-11-29 08:58 | Cardiology Consultation ---
Date of Consultation November 29, 2024 Assessment & Plan (1) Acute on chronic systolic HF (heart failure): (2) Ischemic cardiomyopathy: Plan Assessment: 79 year old male with recent complex cardiac history presents for several days of increasing bilateral lower extremity edema, weakness and shortness of breath. Recently diagnosed with a ischemic cardiomyopathy s/p PCI with ALISSA, and rotational arthrectomy. Cardiology consulted for further evaluation and recommendations. Plan: 1. Acute on chronic systolic Heart failure 2. CAD 3. Ischemic cardiomyopathy -patient feeling poorly today with evidence of modest volume overload. -Continue Furosemide 40mg IV BID -Strict I&O, daily weights and close monitoring of renal function and electrolytes. Goal Serum K > 4.0 and Serum Mag > 2.0 -Continue Toprol xl 12.5mg and Lisinopril 2.5mg daily. -Continue Atorvastatin, ASA 81mg and Plavix 75mg as part of GDMT. Recent stents placed approx one month ago. -Obtain resting echocardiogram to assess overall structure and function in the setting of acute HF with recent revascularization. -Further recommendations as appropriate per echo. Case has been discussed with Dr. Fabian. Further recommendations regarding plan of care as per his assessment. I spent a total of 50 minutes on the date of service in preparation, delivery, documentation of the care provided to the patient excluding any time spent in the performance of separately billed services. CHIVO Doe [facility] Cardiology [facility] Supervising Physician Co-Signing Physician Notes Attending attestation: Case reviewed with the advanced practitioner. I have personally performed a history and physical examination on the patient. I have reviewed the advanced practitioner's documentation on the date of service referenced in note, and I agree with, and take responsibility for the plan of care. Subjective: Patient with long hospital stay in Oct, 2024 having been transferred from [facility] to [facility]. He has since been at [facility] recuperating. Patient/daughter describe progressive right greater than left lower extremity edema, erythema. Exam: General: Frail in appearance Cardiovascular: Regular rhythm, 1/6 systolic murmur, 1+ bilateral right greater than left lower extremity edema, mild erythema Data: EKG performed 11/28/2024 interpret independently reveals sinus rhythm at 70 bpm with frequent premature ventricular contractions, age-indeterminate septal infarction pattern. Diffuse nonspecific T wave changes. Compared to the previous tracing performed at [facility] on 10/26/2024, premature ventricular contractions and lateral T wave inversions noted at that time. Repeat echocardiogram performed today reveals ongoing severe left ventricular systolic dysfunction, LVEF in the range of 25 to 29%, which the regional wall motion abnormalities consistent with ischemic cardiomyopathy. Ejection fraction unchanged compared to the previous echocardiogram performed at [facility] on 10/25/2024. Impression/ Plan: Acute on chronic heart failure reduced ejection fraction due to ischemic cardiomyopathy * Agree with IV iron infusion * Continue dual antiplatelet therapy given recent complex coronary intervention including rotational atherectomy * Continue lisinopril, metoprolol succinate, furosemide 40 mg IV twice daily * Titration of heart failure medicines somewhat limited due to frailty and low blood pressure. I spent a total of 25 minutes coordinating, documenting, and providing care for this patient excluding time spent in the performance of separately billed services or time spent by another provider. Souleymane Fabian DO History of Present Illness Reason for Consultation: CHF Requesting Physician: Anisha burton Attending Physician: Rosa Cheema MD History of Present Illness HPI: patient is a 79 year old male with PMHx as noted below presented to the ER with acute concerns of worsening bilateral lower extremity edema. Patient's recent cardiac history is somewhat complex. He had initially presented to [facility] early October 2024 with nausea, vomiting and weakness x1 day. During course of that admission patient states that he had been having worsening dyspnea on exertion for the past 4-6 weeks with leg swelling "for years, but worse over past 4-6 weeks" He underwent a CT of the chest that suggested bilateral pleural effusions as well as bilateral pneumonia. An echocardiogram was obtained showing severely reduced LVEF of 25-30% with wall motion abnormality. He went on to have a cardiac catheterization showing severe multivessel disease (outlined below) and patient was transferred to [facility] for consideration of CABG vs high risk PCI. he had been started on Farxiga, E ntrestro , and Aldactone prior to transfer. Upon admission to [facility], patient had continued aggressive diuresis and underwent a cardiac MRI as a viability study. Based on cardiac MRI results and surgical team discussed patient was not deemed an appropriate candidate to proceed with CABG and underwent PCI with ALISSA to OM2 and LAD along with rotational arthrectomy. patient was recommended for a staged PCI at possible re-attempt of the RCA. He was also recommended for a LIfeVest at time of discharge; however, assisted living facility refused to accept and so patient/family ultimately decided against pursuing a LifeVest at that time. Patient states that over the week his legs have become more swollen and family noticed a decrease in his overall functional capacity. He was admitted for further evaluation/management. Past Medical History: -CAD s/p PCI at [facility] -2024 (was transferred from [facility] after cardiac cath revealed 99% stenosis of the m-LAD, RCA CHEMICAL WORKER, 85% stenosis of OM branch of circumflex), deemed poor surgical candidate for CABG and underwent PCI with ALISSA of the OM2 and LAD after a rotational arthrectomy, intervention on CHEMICAL WORKER of RCA was aborted due to significant bradycardia and hypotension requiring pressor support. (10/25/2024) -HFrEF s/t Ischemic cardiomyopathy with LVEF 25% TTE 2024. Cardiac MRI 10/17/2024 (as part of viability study) confirmed EF of 12% and significant scar located in the anterior, anteroseptal, and apical keating with no evidence of LV thrombus. (pre-PCI with intervention -PSVT/P. A-fib -PVD -CVA -Borderline to mild Aortic stenosis -Hypertension -Hyperlipidemia -Type 2 diabetes -Iron deficiency anemia (baseline Hgb 10-11) -History of right hip fracture 01/2022 -History of acute a calcinosis cholecystitis status postcholecystectomy with postop course complicated by hemorrhagic shock 02/2022 -Chronic bladder outlet obstruction with recurrent UTI, follows with urology takes finasteride and tamsulosin -Right renal mass, Right adrenal incidentaloma EKG on admission shows SR with frequent PVC, prior septal infarct, possible inferior infarct, QTc 513ms chest xray demonstrates Bronchitis, tiny left pleural effusion Venous Doppler: IMPRESSION: 1. Subcutaneous edema in both lower extremities. 2. There is a 1.8 x 0.7 x 1.5 cm fluid collection in the left popliteal fossa consistent with a Meier's cyst. 3. No evidence of DVT in either lower extremity. High sensitivity troponin 55.2/52.9 BNP 1636 -1430ml fluid balance Review of telemetry shows SR with PVC rates 60-70's. No acute events overnight. Patient does endorse shortness of breath, abdominal bloat and lower extremity edema. Denies any chest pain, pressure or palpitations, no pre-syncope or syncope. Allergies Allergy/AdvReac Type Severity Reaction Status Date / Time No Known Allergies Allergy Verified 01/17/23 01:26 Home Medications Medication Instructions Recorded Confirmed Type acetaminophen 325 mg tablet 650 mg PO Q4 PRN Fever Or Pain 09/12/22 11/28/24 History (Tylenol) gabapentin 100 mg capsule 100 mg PO BID 09/12/22 11/28/24 History metoprolol succinate 25 mg 12.5 mg (1/2 x 25 mg) PO QAM #15 09/14/22 11/28/24 Rx tablet,extended release 24 hr tabs alpha lipoic acid 300 mg capsule 600 mg PO DAILY 01/17/23 11/28/24 History mirtazapine 15 mg tablet 15 mg PO HS 01/17/23 11/28/24 History finasteride 5 mg tablet 5 mg PO DAILY #90 tabs 05/10/23 11/28/24 Rx ammonium lactate 12 % topical cream 1 applic topical DAILY 11/28/24 11/28/24 History aspirin 81 mg chewable tablet 81 mg PO DAILY 11/28/24 11/28/24 History (Aspirin Childrens) atorvastatin 40 mg tablet 40 mg PO DAILY 11/28/24 11/28/24 History clopidogrel 75 mg tablet 75 mg PO DAILY 11/28/24 11/28/24 History clotrimazole 1 % topical cream 1 applic topical BID 11/28/24 11/28/24 History cyanocobalamin (vitamin B-12) 1,000 mcg PO DAILY 11/28/24 11/28/24 History 1,000 mcg tablet (Vitamin B-12) diclofenac sodium 1 % topical gel 2 g topical QID PRN Pain 11/28/24 11/28/24 History fluticasone propionate 50 2 spray intranasal DAILY 11/28/24 11/28/24 History mcg/actuation nasal spray,suspension furosemide 40 mg tablet 40 mg PO BID 11/28/24 11/28/24 History furosemide 40 mg tablet 40 mg PO UD 11/28/24 11/28/24 History lisinopril 2.5 mg tablet 2.5 mg PO DAILY 11/28/24 11/28/24 History lubiprostone 24 mcg capsule 24 mcg PO DAILY 11/28/24 11/28/24 History melatonin 5 mg capsule 5 mg PO HS 11/28/24 11/28/24 History multivitamin 1 tab PO DAILY 11/28/24 11/28/24 History nitroglycerin 0.4 mg sublingual 0.4 mg sublingual .EVERY 5 MINUTES 11/28/24 11/28/24 History tablet PRN Chest Pain polyethylene glycol 3350 17 17 g PO DAILY PRN Constipation 11/28/24 11/28/24 History gram/dose oral powder polyethylene glycol 3350 17 17 g PO DAILY Constipation 11/28/24 11/28/24 History gram/dose oral powder (Miralax) sennosides 8.6 mg tablet (senna) 15 mg PO DAILY PRN NO BM IN 2 DAYS 11/28/24 11/28/24 History sennosides 8.6 mg-docusate sodium 2 tab-cap PO DAILY 11/28/24 11/28/24 History 50 mg tablet (Senna Plus) Patient History Medical History DMII (diabetes mellitus, type 2) Surgical History History of total hip arthroplasty Family History Other Cancer Lung disease Social History Smoking Status: Former smoker Tobacco Type: Cigarettes Second Hand Exposure: No; Do You Dip or Chew Tobacco: Yes; Hx Alcohol Use: No Hx Substance Use: No Preferred Language: [place] Communication Ability: Effective Information Systems Specialist Required: No Beliefs That Will Affect Care: None marital status: Current Living Situation: Personal Care Facility How many Children do You have: 2 Other Information That Helps Us Care for You: No Feels Safe at Home: Yes Safety Concerns: Feels Safe At This Time Assistive Devices: Cane, Denture - Upper, Denture - Lower, Glasses, Walker and Other Assistive Devices Comment: jamie Review of Systems Review of Systems: All systems reviewed & are unremarkable except as noted in HPI & below Physical Exam Constitutional: + ill appearing and + frail appearing; n o acute distress Neck: normal visual inspection and trachea midline Respiratory: normal respiratory effort; no respiratory distress, no labored breathing and no cough Auscultation: + diminished lung sounds (bilateral bases ) and + wheezes (faint exp wheezes scattered throughout ); no crackles, no rales and no rhonchi Cardiovascular: Rate/Rhythm: regular rate and regular rhythm Heart Sounds: normal S1, normal S2 and + murmur (+2/6 systolic ) Vessels: dorsalis pedis pulses present; no JVD Extremities: + edema (+2 BLE) Skin: no rashes, warm and dry Psychiatric: A+Ox3, euthymic affect Results & Data Vital Signs (Past 12 Hours) Vital Signs Temp Pulse Pulse Resp BP BP Pulse Ox 11/29/24 07:27 36.6 C 70 16 112/63 95 11/29/24 04:21 36.6 C 81 18 109/62 92 11/29/24 00:37 11/29/24 00:33 11/29/24 00:05 36.7 C 80 20 153/84 H 95 11/28/24 23:41 11/28/24 23:00 74 16 151/85 H 98 11/28/24 21:14 77 11/28/24 21:05 96 11/28/24 21:01 96 11/28/24 20:56 36.5 C 71 18 143/88 H 95 O2 Del Method O2 Del Method 11/29/24 07:27 Room Air 11/29/24 04:21 Room Air 11/29/24 00:37 Room Air 11/29/24 00:33 Room Air 11/29/24 00:05 Room Air 11/28/24 23:41 Room Air 11/28/24 23:00 Room Air 11/28/24 21:14 11/28/24 21:05 Room Air 11/28/24 21:01 Room Air 11/28/24 20:56 Room Air Laboratory Results Cardiac Enzymes 11/28/24 11/28/24 Range/Units 21:15 22:57 Troponin I High Sens 55.2 H* 52.9 H* (0-20) pg/ml B-Natriuretic Peptide 1636 H (0-100) pg/ml Coagulation 11/28/24 Range/Units 21:15 PT 11.7 (9.0-12.0) Seconds APTT 30 (21-31) Seconds B-Natriuretic Peptide 1636 H (0-100) pg/ml CBC 11/28/24 11/29/24 Range/Units 21:15 05:32 WBC 7.24 5.68 (4.8-10.8) K/ul RBC 3.62 L 3.12 L (4.70-6.10) M/uL Hgb 11.0 L 9.3 L (14.0-18.0) g/dl Hct 33.4 L 28.3 L (42.0-52.0) % Plt Count 288 218 (130-400) K/uL Neut # (Auto) 4.62 3.63 (1.40-6.50) K/uL Lymph # (Auto) 1.84 1.24 (1.20-3.40) K/uL [place] # (Auto) 0.66 H 0.68 H (0.11-0.59) K/uL Eos # (Auto) 0.08 0.10 (0.00-0.50) K/uL Baso # (Auto) 0.03 0.02 (0.00-0.20) K/uL Comprehensive Metabolic Panel 11/28/24 11/29/24 Range/Units 21:15 05:32 Sodium 140 140 (136-145) mmol/L Potassium 3.9 3.7 (3.5-5.1) mmol/L Chloride 107 108 H (98-107) mmol/L Carbon Dioxide 26 26 (21-32) mmol/L BUN 24 H 21 (6-23) mg/dl Creatinine 0.76 0.61 (0.6-1.4) mg/dl Glucose 90 89 (70-99(Fasting)) mg/dl Calcium 8.9 8.3 L (8.6-10.3) mg/dl Intake and Output 11/28/24 11/29/24 11/29/24 22:59 06:59 14:59 Intake Total 200 / 200 120 / 120 Output Total 1350 / 1350 400 / 400 Balance -1150 / -1150 -280 / -280 Intake: IV 200 / 200 Doxycycline Hyclate 100 mg In 100 / 100 Dextrose 5% Mini-B 100 ml @ 50 mls/hr IV NOW STA Rx#:[id number] Magnesium Sulfate / D5w 1 gm In 100 / 100 100 ml @ 50 mls/hr IV ONE ONE Rx#:[id number] Oral 120 / 120 Output: Urine 1350 / 1350 400 / 400 Other: Weight 100.6 kg 91.943 kg Weight Measurement Method Built in [facility] Built in [facility] Diagnostic Findings Limited echo 10/25/2024 (assessing for cardiac tamponade) Interpretation Summary The examination is limited quality but adequate for evaluation of the referral indication. The qualitative LV ejection fraction is 25-29% (severely reduced). There is diffuse hypokinesis to akinesis. A trivial anterior loculated pericardial effusion is present. Cardiac cath 11/03/2024 [facility]: Operations & Procedures: cardiac catheterization and coronary intervention or stent placement Kraus Interpretation (focused): PCI to LAD and LCX. Unsuccessful attempt at PCI to RCA. Additional Findings: Coronary disease - hemodynamically significant Prox RCA 100% CHEMICAL WORKER with L-R collaterals. Mid LAD 100% CHEMICAL WORKER with L-L collaterals. Prox OM2 80% stenosis Intervention Summary: Prox OM2 lesion treated with 1 drug-eluting stent (2.75mm x 18mm [place]). Mid LAD CHEMICAL WORKER treated with rotational atherectomy followed by 1 drug-eluting stent (3.5mm x 22mmm [place]). Unsuccessful attempt at antegrade RCA CHEMICAL WORKER intervention. Patient became bradycardic and hypotensive so procedure ended and can be re-attempted in a staged fashion as an outpatient.
[2024-11-29 09:20] LABS: Folate (Folic Acid),Ser orPlas 15.9 ng/ml (>5.38)
[2024-11-29] MEDS: POTASSIUM CHLORIDE PWD 20 MEQ PACK PO SCH (10:03)
[2024-11-29] MEDS: IRON SUCROSE 300 MG in SODIUM CHLORIDE 0.9% 250 ML IV ONE (10:03)
--- NOTE | 2024-11-29 13:24 | Electrocardiogram Report ---
Test Reason : Blood Pressure : */* mmHG Vent. Rate : 78 BPM Atrial Rate : 78 BPM P-R Int : 182 ms QRS Dur : 86 ms QT Int : 450 ms P-R-T Axes : 17 3 -27 degrees QTcB Int : 513 ms Sinus rhythm with frequent Premature ventricular complexes Septal infarct (cited on or before 08-Mar-2024) Cannot rule out Inferior infarct , age undetermined T wave abnormality, consider anterolateral ischemia Prolonged QT Abnormal ECG When compared with ECG of 09-Mar-2024 05:42, Right bundle branch block is no longer Present Questionable change in initial forces of Septal leads Confirmed by Da Kumar ([id number]) on 11/29/2024 1:24:24 PM Referred By: REFERRED SELF Confirmed By: Da Kumar
[2024-11-29] MEDS: MIRTAZAPINE TAB 15 MG TAB PO SCH (20:15)
[2024-11-30 07:18] LABS: BUN Creatinine Ratio 29.2 (10-20); Calcium 8.4 mg/dl (8.6-10.3); Creatinine Clr Calc Pharmacy 97.8 ml/min; Magnesium 1.8 mg/dl (1.7-2.4); Phosphorus 4.1 mg/dl (2.5-4.9)
--- NOTE | 2024-11-30 10:03 | Cardiology Progress Note ---
Date of Service November 30, 2024 Assessment & Plan (1) Acute on chronic systolic HF (heart failure): (2) Ischemic cardiomyopathy: Plan Assessment: 79 year old male with recent complex cardiac history presents for several days of increasing bilateral lower extremity edema, weakness and shortness of breath. Recently diagnosed with a ischemic cardiomyopathy s/p PCI with ALISSA, and rotational arthrectomy. Cardiology consulted for further evaluation and recommendations. Echo 11/29/24, with LVEF of 25% , grade II diastolic dysfunction. LVEF relatively unchanged compared to echo performed at [facility] in Oct, 2024. Plan: Acute on chronic heart failure reduced ejection fraction due to ischemic cardiomyopathy * Continue dual antiplatelet therapy given recent complex coronary intervention including rotational atherectomy * Continue lisinopril, metoprolol succinate, furosemide 40 mg IV twice daily * Monitor renal function ,Hgb, and electrolytes * Titration of heart failure medicines somewhat limited due to frailty and low blood pressure. Souleymane Fabian DO Admission and Anticipated Discharge Date Admission Date: November 28, 2024 Subjective Patient seen in cardiology follow up. Feels no worse than yesterday. Denies chest pain. Telemetry reveals Sinus rhythm in the 70s with occasional PVCs. Physical Exam Constitutional: + ill appearing and + frail appearing; n o acute distress Neck: normal visual inspection and trachea midline Respiratory: normal respiratory effort; no respiratory distress, no labored breathing and no cough Auscultation: + diminished lung sounds (bilateral bases ) and + wheezes (faint exp wheezes scattered throughout ); no crackles, no rales and no rhonchi Cardiovascular: Rate/Rhythm: regular rate and regular rhythm Heart Sounds: normal S1, normal S2 and + murmur (+2/6 systolic ) Vessels: dorsalis pedis pulses present; no JVD Extremities: + edema (+2 BLE) Skin: no rashes, warm and dry Psychiatric: A+Ox3, euthymic affect Results & Data Vital Signs (Past 12 Hours) Vital Signs Temp Pulse Pulse Resp BP Pulse Ox O2 Del Method 11/30/24 07:25 36.6 C 70 18 106/65 92 Room Air 11/30/24 07:06 74 11/30/24 04:00 36.8 C 63 18 106/62 92 Room Air 11/29/24 23:00 36.7 C 77 18 108/62 96 Room Air 11/29/24 22:34 72 Laboratory Results Comprehensive Metabolic Panel 11/30/24 Range/Units 05:50 Sodium 140 (136-145) mmol/L Potassium 4.0 (3.5-5.1) mmol/L Chloride 106 (98-107) mmol/L Carbon Dioxide 28 (21-32) mmol/L BUN 21 (6-23) mg/dl Creatinine 0.72 (0.6-1.4) mg/dl Glucose 99 (70-99(Fasting)) mg/dl Calcium 8.4 L (8.6-10.3) mg/dl Intake and Output 11/29/24 11/30/24 11/30/24 22:59 06:59 14:59 Intake Total 760 / 1385 Output Total 1100 / 3800 1300 / 3800 Balance -340 / -2415 -1300 / -2415 Intake: Oral 760 / 1120 Output: Urine 1100 / 3800 1300 / 3800 Other: Weight 88.496 kg Weight Measurement Method Built in [facility]
[2024-11-30] MEDS: SODIUM CHLORIDE 0.65% NA SOLN 45 ML (OCEAN) ONE (10:44)
--- NOTE | 2024-11-30 13:49 | Hospitalist Progress Note ---
Date of Service November 30, 2024 Assessment & Plan (1) Bilateral leg edema: Plan: Mr. Welsh is an 79 year old gentleman with a past medical history of DM2, hyperlipidemia, HTN, CVA, SVT, CAD, right kidney mass, BPH, adrenal adenoma, depression who is admitted for BLE 2/2 acute on chronic heart failure with reduced EF (~12% 10/2024) Downtrending Hgb, s/p venofer in 10/2021 due to hgb downtrending #chronic iron deficient anemia 1 dose of IV Venofer during admission 10/2024 2/2 decreasing Hgb. Transferrin 171, ferritin 91 this admission s/p 1 Unit Venofer 11/29, will limit 2/2 volume baseline Hb running 9-10 as of recent admission #Acute on chronic HFrEF (LVEF 12% on cardiac MRI 10/2024) #Ischemic cardiomyopathy iso severe multivessel CAD s/p ALISSA OM2, 1 ALISSA LAD 10/2024 * Prox RCA 100% CHIEF TALENT OFFICER with L-R collaterals. * Mid LAD 100% CHIEF TALENT OFFICER with L-L collaterals. * Prox OM2 80% stenosis - Dry weight: 72.3kg on 10/28, 91.94kg on admission 11/29 - Home diuretics: Lasix 40mg daily - GDMT: *BetaB: continue metoprolol xl 12.5 qam *RAAS: c/w home lisniopril 2.5 mg *Addiosn: not on *SGLT: not on - s/p 40mg IV lasix in the ED Home anitha - continue diuresis with lasix 40mg IV BID - Strict I/Os, daily weights, fluid restriction replace electrolytes prn continue statin continue dapt Cardiology on board, appreciate recs. #Cellulitis #Bilateral leg swelling LE cellulitis (L>R), patient unsure about onset of leg redness, no sepsis for now continue doxy for now #PSVT continue metoprolol history of prior digoxin monitor on tele #CVA contiue statin and dapt #HLD continue statin #DM2 recent hemoglobin A1c of 6.4 10/2024 basal bolus insulin while admitted #BPH/right renal mass/right adrenal incidentaloma patient follows with [facility] urologist DVT prophylaxis Lovenox subcu Full code PT/OT ordered Admission and Anticipated Discharge Date Admission Date: November 28, 2024 Subjective Patient was seen and examined at bedside. Patient was lying in bed, on room air, NAD, resting comfortably. Patient reports feeling okay, denies any chest pain or shortness of breath or palpitation, denies any new ROS. Patient reports eating okay, reports last bowel movement about 2 days ago. Physical Exam Physical Exam: Constitutional: WD/WN, vitals as a lyla (seemingly le thargic/tired, but interactive and A Ox3) Cardiovascular: ANNMARIE+ RRR Gastrointestinal ( Abdomen): normal bowel sound s, soft, nontender , no hepatosplenom egaly Musculoskeletal: BLE edema 2+ radha ing just below the knee, notable ank le/pedal swelling, few wounds covere d on LLE with band ages and some surr ounding erythema Results & Data Results & Data Vital Signs (Past 12 Hours) Vital Signs Temp Pulse Pulse Resp BP Pulse Ox O2 Del Method 11/30/24 12:31 36.8 C 70 18 102/68 95 Room Air 11/30/24 10:19 Room Air 11/30/24 07:25 36.6 C 70 18 106/65 92 Room Air 11/30/24 07:06 74 11/30/24 04:00 36.8 C 63 18 106/62 92 Room Air
[2024-12-01 06:07] LABS: Hematocrit (blood only) 33.6 % (42.0-52.0); Hemoglobin 10.8 g/dl (14.0-18.0); Mean Corpuscular Hemoglobin 29.2 pg (25.0-34.0); Mean Corpuscular Hgb Conc 32.1 g/dL (32.0-36.0); Mean Corpuscular Volume 90.8 fL (80.0-100.0); Mean Platelet Volume 10.2 fL (9.4-12.4); Platelet Count 252 K/uL (130-400); RDW Coefficient of Variation 14.6 % (11.5-14.5); RDW Standard Deviation 48.7 fL (36.4-46.3); White Blood Count 6.41 K/ul (4.8-10.8)
[2024-12-01 06:24] LABS: BUN Creatinine Ratio 31.5 (10-20); Calcium 8.7 mg/dl (8.6-10.3); Creatinine Clr Calc Pharmacy 96.5 ml/min; Magnesium 1.8 mg/dl (1.7-2.4); Potassium 4.1 mmol/L (3.5-5.1)
--- NOTE | 2024-12-01 13:03 | Hospitalist Progress Note ---
Date of Service December 01, 2024 Assessment & Plan (1) Bilateral leg edema: Plan: Mr. Welsh is an 79 year old gentleman with a past medical history of DM2, hyperlipidemia, HTN, CVA, SVT, CAD, right kidney mass, BPH, adrenal adenoma, depression who is admitted for BLE 2/2 acute on chronic heart failure with reduced EF (~12% 10/2024) Downtrending Hgb, s/p venofer in 10/2021 due to hgb downtrending #chronic iron deficient anemia 1 dose of IV Venofer during admission 10/2024 2/2 decreasing Hgb. Transferrin 171, ferritin 91 this admission s/p 1 Unit Venofer 11/29, will limit 2/2 volume baseline Hb running 9-10 as of recent admission #Acute on chronic HFrEF (LVEF 12% on cardiac MRI 10/2024) #Ischemic cardiomyopathy iso severe multivessel CAD s/p ALISSA OM2, 1 ALISSA LAD 10/2024 * Prox RCA 100% [employer] with L-R collaterals. * Mid LAD 100% [employer] with L-L collaterals. * Prox OM2 80% stenosis - Dry weight: 72.3kg on 10/28, 91.94kg on admission 11/29 - Home diuretics: Lasix 40mg daily - GDMT: *BetaB: continue metoprolol xl 12.5 qam *RAAS: c/w home lisniopril 2.5 mg *Addison: not on *SGLT: not on - s/p 40mg IV lasix in the ED Home anihta - continue diuresis with lasix 40mg IV BID - Strict I/Os, daily weights, fluid restriction replace electrolytes prn continue statin continue dapt Cardiology on board, appreciate recs. #Cellulitis #Bilateral leg swelling LE cellulitis (L>R), patient unsure about onset of leg redness, no sepsis for now continue doxy for now #PSVT continue metoprolol history of prior digoxin monitor on tele #CVA contiue statin and dapt #HLD continue statin #DM2 recent hemoglobin A1c of 6.4 10/2024 basal bolus insulin while admitted #BPH/right renal mass/right adrenal incidentaloma patient follows with [facility]ist DVT prophylaxis Lovenox subcu Full code PT/OT ordered Admission and Anticipated Discharge Date Admission Date: November 28, 2024 Subjective Patient was seen and examined at bedside. Patient was lying in bed, on room air, NAD, resting comfortably. Patient reports feeling okay, denies any chest pain or shortness of breath or palpitation, denies any new ROS. Patient reports eating okay, reports moving bowel ok. Physical Exam Physical Exam: Constitutional: WD/WN, vitals as a lyla (seemingly le thargic/tired, but interactive and A Ox3) Cardiovascular: ANNMARIE+ RRR Gastrointestinal ( Abdomen): normal bowel sound s, soft, nontender , no hepatosplenom egaly Musculoskeletal: BLE edema 2+ radha ing just below the knee, notable ank le/pedal swelling, few wounds covere d on LLE with band ages and some surr ounding erythema Results & Data Results & Data Vital Signs (Past 12 Hours) Vital Signs Temp Pulse Pulse Resp BP BP Pulse Ox 12/01/24 12:04 36.3 C L 71 18 100/60 94 12/01/24 10:57 70 12/01/24 07:00 36.8 C 70 18 129/73 95 12/01/24 03:27 36.7 C 66 18 116/65 91 O2 Del Method 12/01/24 12:04 Room Air 12/01/24 10:57 12/01/24 07:00 Room Air 12/01/24 03:27 Room Air
--- NOTE | 2024-12-01 13:05 | Cardiology Progress Note ---
Date of Service December 01, 2024 Assessment & Plan (1) Acute on chronic systolic HF (heart failure): (2) Ischemic cardiomyopathy: Plan 11/30/24 Assessment: 79 year old male with recent complex cardiac history presents for several days of increasing bilateral lower extremity edema, weakness and shortness of breath. Recently diagnosed with a ischemic cardiomyopathy s/p PCI with ALISSA, and rotational arthrectomy. Cardiology consulted for further evaluation and recommendations. Echo 11/29/24, with LVEF of 25% , grade II diastolic dysfunction. LVEF relatively unchanged compared to [place] [facility] [place]. Plan: Acute on chronic heart failure reduced ejection fraction due to ischemic cardiomyopathy * Continue dual antiplatelet therapy given recent complex coronary intervention including rotational atherectomy * Continue lisinopril, metoprolol succinate, furosemide 40 mg IV twice daily * Monitor renal function ,Hgb, and electrolytes * Titration of heart failure medicines somewhat limited due to frailty and low blood pressure. 12/01/24: -Improving volume status with ongoing IV diuretics -6 L output recorded over the last 24 hours. -Stable renal function/electrolytes. Magnesium slightly low at 1.8. Supplement. -GDMT limited due to hypotension -continue DAPT, metoprolol, lisinopril, statin Case discussed with Dr. Fabian I spent a total of 35 minutes on the date of service in preparation, delivery, and documentation of the care provided to this patient, excluding any time spent in the performance of separately billed services. Callie Vasquez PA-C Department of Cardiology, [facility] This chart was completed in part utilizing Speech Voice Recognition Software. Grammatical errors, random word insertions, pronoun errors, and incomplete sentences are an occasional consequence of this system due to software limitations, ambient noise, and hardware issues. Any formal questions or concerns about the content, text, or information contained within the body of this dictation should be directly addressed to the provider for clarification. Admission and Anticipated Discharge Date Admission Date: November 28, 2024 Supervising Physician Co-Signing Physician Notes Attending attestation: Case reviewed with the advanced practitioner. I have personally performed a history and physical examination on the patient. I have reviewed the advanced practitioner's documentation on the date of service referenced in note, and I agree with, and take responsibility for the plan of care. Hold additional IV diuretics. Consider transition to oral diuretic tomorrow. I spent a total of 20 minutes coordinating, documenting, and providing care for this patient excluding time spent in the performance of separately billed services or time spent by another provider. Souleymane Fabian, Subjective Patient resting in bed. Reports ongoing fatigue and generalized weakness. reports his SOB has improved from admission. No chest pain. Edema also improving. Review of Systems Review of Systems: All systems reviewed & are unremarkable except as noted in HPI & below Physical Exam Constitutional: + ill appearing and + frail appearing; n o acute distress Neck: normal visual inspection and trachea midline Respiratory: normal respiratory effort; no respiratory distress, no labored breathing and no cough Auscultation: + diminished lung sounds (bilateral bases ); no crackles, no rales, no rhonchi and no wheezes (faint exp wheezes scattered throughout ) Cardiovascular: Rate/Rhythm: regular rate and regular rhythm Heart Sounds: normal S1, normal S2 and + murmur (+2/6 systolic ) Vessels: dorsalis pedis pulses present; no JVD Extremities: + edema (+1 BLE) Skin: no rashes, warm and dry Psychiatric: A+Ox3, euthymic affect Results & Data Vital Signs (Past 12 Hours) Vital Signs Temp Pulse Pulse Resp BP BP Pulse Ox 12/01/24 12:04 36.3 C L 71 18 100/60 94 12/01/24 10:57 70 12/01/24 07:00 36.8 C 70 18 129/73 95 12/01/24 03:27 36.7 C 66 18 116/65 91 O2 Del Method 12/01/24 12:04 Room Air 12/01/24 10:57 12/01/24 07:00 Room Air 12/01/24 03:27 Room Air Laboratory Results CBC 12/01/24 Range/Units 05:36 WBC 6.41 (4.8-10.8) K/ul RBC 3.70 L (4.70-6.10) M/uL Hgb 10.8 L (14.0-18.0) g/dl Hct 33.6 L (42.0-52.0) % Plt Count 252 (130-400) K/uL Comprehensive Metabolic Panel 12/01/24 Range/Units 05:36 Sodium 139 (136-145) mmol/L Potassium 4.1 (3.5-5.1) mmol/L Chloride 103 (98-107) mmol/L Carbon Dioxide 28 (21-32) mmol/L BUN 23 (6-23) mg/dl Creatinine 0.73 (0.6-1.4) mg/dl Glucose 95 (70-99(Fasting)) mg/dl Calcium 8.7 (8.6-10.3) mg/dl Intake and Output 11/30/24 12/01/24 12/01/24 22:59 06:59 14:59 Intake Total 640 / 760 500 / 500 Output Total 3100 / 6150 900 / 6150 1850 / 1850 Balance -2460 / -5390 -900 / -5390 -1350 / -1350 Intake: Oral 640 / 760 500 / 500 Output: Urine 3100 / 6150 900 / 6150 1850 / 1850 Other: Weight 88.9 kg Weight Measurement Method Built in [facility] Diagnostic Findings Telemetry reviewed: NSR in the 's occ PVC Medications Administered Current Inpatient Medications Aspirin (Aspirin 81 Mg Ectab) 81 mg PO DAILY [facility] Stop: 12/29/24 08:59 Last Admin: 12/01/24 09:03 Dose: 81 mg Atorvastatin Calcium (Atorvastatin 40 Mg Tab) 40 mg PO DAILY [facility] Stop: 12/29/24 08:59 Last Admin: 12/01/24 09:04 Dose: 40 mg Clopidogrel Bisulfate (Clopidogrel Bisulfate 75 Mg Tab) 75 mg PO DAILY [facility] Stop: 12/29/24 08:59 Last Admin: 12/01/24 09:04 Dose: 75 mg Cyanocobalamin (Cyanocobalamin (B-12) 500 Mcg Tablet) 1,000 mcg PO DAILY [facility] Stop: 12/29/24 08:59 Last Admin: 12/01/24 09:03 Dose: 1,000 mcg Dextrose (Dextrose 50% 50 Ml Syringe) 25 - 50 ml IV UD PRN; Protocol PRN Reason: Hypoglycemia Protocol Stop: 12/29/24 00:32 Diclofenac Sodium (Diclofenac Sod 1% Gel 100 Gm Tube) 2 gm EXT QID PRN; Protocol PRN Reason: Pain Stop: 12/28/24 23:04 Doxycycline Hyclate (Doxycycline Hyclate 100 Mg Cap) 100 mg PO BID [facility] Stop: 12/06/24 08:59 Last Admin: 12/01/24 09:01 Dose: 100 mg Enoxaparin Sodium (Enoxaparin Inj 40 Mg/0.4 Ml Syr) 40 mg SQ QAM [facility] Stop: 12/29/24 08:59 Last Admin: 12/01/24 09:10 Dose: Not Given Finasteride (Finasteride 5 Mg Tab) 5 mg PO DAILY [facility] Stop: 12/29/24 08:59 Last Admin: 12/01/24 09:02 Dose: 5 mg Furosemide (Furosemide 40 Mg/4 Ml Vial) 40 mg IV BID17 [facility] Stop: 12/29/24 08:59 Last Admin: 12/01/24 09:04 Dose: 40 mg Gabapentin (Gabapentin 100 Mg Cap) 100 mg PO BID [facility] Stop: 12/29/24 08:59 Last Admin: 12/01/24 09:04 Dose: 100 mg Glucagon (Glucagon For Inj 1 Mg Vial) 1 mg SQ UD PRN; Protocol PRN Reason: Hypoglycemia Protocol Stop: 12/29/24 00:32 Glucose (Glucose 40% Gel 15 Gm Tube) 15 - 30 gm PO UD PRN; Protocol PRN Reason: Hypoglycemia Protocol Stop: 12/29/24 00:32 Glucose (Glucose 10 Tab/Tube) 4 - 8 tab PO UD PRN; Protocol PRN Reason: Hypoglycemia Protocol Stop: 12/29/24 00:32 Promethazine HCl (Phenergan) 6.25 mg in 50.25 mls @ 201 mls/hr IV Q6H PRN PRN Reason: Nausea And Vomiting Stop: 12/28/24 23:06 Insulin Aspart (Insulin Aspart Per Unit Charge) 0 units SC ACHS [facility] Stop: 12/29/24 00:32 Last Admin: 12/01/24 12:18 Dose: 4 units Lisinopril (Lisinopril 2.5 Mg Tab) 2.5 mg PO DAILY [facility] Stop: 12/29/24 08:59 Last Admin: 12/01/24 09:02 Dose: 2.5 mg Lubiprostone (Lubiprostone 8 Mcg Cap) 24 mcg PO DAILY [facility] Stop: 12/29/24 08:59 Last Admin: 12/01/24 09:03 Dose: 24 mcg Melatonin (Melatonin 3 Mg Tab) 3 mg PO HS [facility] Stop: 12/28/24 23:04 Last Admin: 11/30/24 21:16 Dose: 3 mg Metoprolol Succinate (Metoprolol Succ 25mg Ext Rel Tab) 12.5 mg PO QAM [facility] Stop: 12/29/24 08:59 Last Admin: 12/01/24 09:01 Dose: 12.5 mg Mirtazapine (Mirtazapine Tab 15 Mg Tab) 15 mg PO HS [facility] Stop: 12/29/24 20:59 Last Admin: 11/30/24 21:16 Dose: 15 mg Miscellaneous (Carbohydrates For Hypoglycemia ) 15 - 30 gm PO UD PRN PRN Reason: Hypoglycemia Protocol Stop: 12/29/24 00:32 Multivitamins (Multivitamin Tab) 1 tab PO DAILY [facility] Stop: 12/29/24 08:59 Last Admin: 12/01/24 09:02 Dose: 1 tab Oxycodone HCl (Oxycodone Hcl Ir 5 Mg Tab (Immediate Release)) 5 mg PO Q4H PRN PRN Reason: Pain Stop: 12/12/24 23:06 Polyethylene Glycol (Polyethylene (Miralax) 17 Gm Pack) 17 gm PO DAILY [facility] Stop: 12/29/24 08:59 Last Admin: 12/01/24 09:11 Dose: Not Given Potassium Chloride (Potassium Chloride Pwd 20 Meq Pack) 40 meq PO BID [facility] Stop: 12/29/24 08:59 Last Admin: 12/01/24 08:58 Dose: 40 meq Senna/Docusate Sodium (Docusate Sodium/Senna 50/8.6mg Tab) 2 tab PO DAILY [facility] Stop: 12/29/24 08:59 Last Admin: 12/01/24 09:11 Dose: Not Given
[2024-12-01] MEDS: MAGNESIUM OXIDE 400 MG TAB PO SCH (14:28)
[2024-12-02 06:06] LABS: BUN Creatinine Ratio 34.7 (10-20); Calcium 8.9 mg/dl (8.6-10.3); Creatinine Clr Calc Pharmacy 88.3 ml/min; Magnesium 1.8 mg/dl (1.7-2.4); Potassium 4.2 mmol/L (3.5-5.1)
--- NOTE | 2024-12-02 10:08 | Cardiology Progress Note ---
Date of Service December 02, 2024 Assessment & Plan (1) Acute on chronic systolic HF (heart failure): (2) Ischemic cardiomyopathy: Plan 11/30/24 Assessment: 79 year old male with recent complex cardiac history presents for several days of increasing bilateral lower extremity edema, weakness and shortness of breath. Recently diagnosed with a ischemic cardiomyopathy s/p PCI with ALISSA, and rotational arthrectomy. Cardiology consulted for further evaluation and recommendations. Echo 11/29/24, with LVEF of 25% , grade II diastolic dysfunction. LVEF relatively unchanged compared to echo performed at [facility] in Oct, 2024. Plan: Acute on chronic heart failure reduced ejection fraction due to ischemic cardiomyopathy * Continue dual antiplatelet therapy given recent complex coronary intervention including rotational atherectomy * Continue lisinopril, metoprolol succinate, furosemide 40 mg IV twice daily * Monitor renal function ,Hgb, and electrolytes * Titration of heart failure medicines somewhat limited due to frailty and low blood pressure. 12/01/24: -Improving volume status with ongoing IV diuretics -6 L output recorded over the last 24 hours. -Stable renal function/electrolytes. Magnesium slightly low at 1.8. Supplement. -GDMT limited due to hypotension -continue DAPT, metoprolol, lisinopril, statin 12/02/24: -Ongoing edema noted. SOB improving -stable renal function -aggressive diuresis/urine outputs over the last few days. -Tolerating IV diuretics -Will give additional IV diuretics today and hopefully transition to oral tomorrow. -Continue all other cardiac meds including DAPT, metoprolol, lisinopril, statin -GDMT limited due to hypotension. Recommend PT/OT today as I'm not certain how much patient has been out of bed. Case discussed with Dr. Walls. I spent a total of 30 minutes on the date of service in preparation, delivery, and documentation of the care provided to this patient, excluding any time spent in the performance of separately billed services. Callie Vasquez PA-C Department of Cardiology, [facility] This chart was completed in part utilizing Speech Voice Recognition Software. Grammatical errors, random word insertions, pronoun errors, and incomplete sentences are an occasional consequence of this system due to software limitations, ambient noise, and hardware issues. Any formal questions or concerns about the content, text, or information contained within the body of this dictation should be directly addressed to the provider for clarification. Admission and Anticipated Discharge Date Admission Date: November 28, 2024 Supervising Physician Co-Signing Physician Notes I have personally performed a history and physical examination on the patient. I have reviewed the advance practitioner's documentation, and I agree with, and take responsibility for the plan of care. 79-year-old male seen and examined at the bedside. Echocardiogram demonstrating severe LV systolic dysfunction with a left ventricular ejection fraction of 25 to 29%.Clinically improving with IV diuresis. Renal function remains stable. Will continue IV diuretic therapy for an additional 24 hours. Consider transition to oral diuretic therapy in the next 24 to 48 hours. Continue other cardiovascular medications including dual antiplatelet therapy, lisinopril, metoprolol, and statin therapy. Titration of guideline directed medical therapy limited by chronic/intermittent hypotension. I spent a total of 30 minutes on the date of service in preparation, delivery, and documentation of the care provided to this patient, excluding any time spent in the performance of separately billed services. Alonso Walls DO, [facility] Subjective Patient resting in bed. Ongoing edema reported. SOB improving. Not yet at baseline. No chest pain. No dizziness. Good urine ouputs recorded. Review of Systems Review of Systems: All systems reviewed & are unremarkable except as noted in HPI & below Physical Exam Constitutional: + ill appearing and + frail appearing; n o acute distress Neck: normal visual inspection and trachea midline Respiratory: normal respiratory effort; no respiratory distress, no labored breathing and no cough Auscultation: + diminished lung sounds (bilateral bases ); no crackles, no rales, no rhonchi and no wheezes (faint exp wheezes scattered throughout ) Cardiovascular: Rate/Rhythm: regular rate and regular rhythm Heart Sounds: normal S1, normal S2 and + murmur (+2/6 systolic ) Vessels: dorsalis pedis pulses present; no JVD Extremities: + edema (+1 BLE) Skin: no rashes, warm and dry Psychiatric: A+Ox3, euthymic affect Results & Data Vital Signs (Past 12 Hours) Vital Signs Temp Pulse Pulse Resp BP Pulse Ox O2 Del Method 12/02/24 08:00 36.6 C 79 20 148/77 H 96 Room Air 12/02/24 07:00 78 12/02/24 03:55 36.4 C L 77 18 159/82 H 95 Room Air 12/01/24 23:01 70 12/01/24 22:06 36.5 C 73 16 114/65 94 Room Air Laboratory Results Comprehensive Metabolic Panel 12/02/24 Range/Units 05:31 Sodium 138 (136-145) mmol/L Potassium 4.2 (3.5-5.1) mmol/L Chloride 103 (98-107) mmol/L Carbon Dioxide 29 (21-32) mmol/L BUN 26 H (6-23) mg/dl Creatinine 0.75 (0.6-1.4) mg/dl Glucose 91 (70-99(Fasting)) mg/dl Calcium 8.9 (8.6-10.3) mg/dl Intake and Output 12/01/24 12/02/24 12/02/24 22:59 06:59 14:59 Intake Total 100 / 600 Output Total 1800 / 4025 375 / 4025 500 / 500 Balance -1700 / -3425 -375 / -3425 -500 / -500 Intake: Oral 100 / 600 Output: Urine 1800 / 4025 375 / 4025 500 / 500 Other: # Unmeasured Voids 1 Weight 79.5 kg Weight Measurement Method Standing Scale Diagnostic Findings Telemetry reviewed: NSR in the Medications Administered Current Inpatient Medications Aspirin (Aspirin 81 Mg Ectab) 81 mg PO DAILY [facility] Stop: 12/29/24 08:59 Last Admin: 12/02/24 09:00 Dose: 81 mg Atorvastatin Calcium (Atorvastatin 40 Mg Tab) 40 mg PO DAILY [facility] Stop: 12/29/24 08:59 Last Admin: 12/02/24 09:00 Dose: 40 mg Clopidogrel Bisulfate (Clopidogrel Bisulfate 75 Mg Tab) 75 mg PO DAILY [facility] Stop: 12/29/24 08:59 Last Admin: 12/02/24 09:00 Dose: 75 mg Cyanocobalamin (Cyanocobalamin (B-12) 500 Mcg Tablet) 1,000 mcg PO DAILY [facility] Stop: 12/29/24 08:59 Last Admin: 12/02/24 09:00 Dose: 1,000 mcg Dextrose (Dextrose 50% 50 Ml Syringe) 25 - 50 ml IV UD PRN; Protocol PRN Reason: Hypoglycemia Protocol Stop: 12/29/24 00:32 Diclofenac Sodium (Diclofenac Sod 1% Gel 100 Gm Tube) 2 gm EXT QID PRN; Protocol PRN Reason: Pain Stop: 12/28/24 23:04 Doxycycline Hyclate (Doxycycline Hyclate 100 Mg Cap) 100 mg PO BID [facility] Stop: 12/06/24 08:59 Last Admin: 12/02/24 09:00 Dose: 100 mg Enoxaparin Sodium (Enoxaparin Inj 40 Mg/0.4 Ml Syr) 40 mg SQ QAM [facility] Stop: 12/29/24 08:59 Last Admin: 12/02/24 08:53 Dose: Not Given Finasteride (Finasteride 5 Mg Tab) 5 mg PO DAILY [facility] Stop: 12/29/24 08:59 Last Admin: 12/02/24 09:00 Dose: 5 mg Furosemide (Furosemide 40 Mg/4 Ml Vial) 40 mg IV BID17 [facility] Stop: 12/29/24 08:59 Last Admin: 12/01/24 16:59 Dose: 40 mg Gabapentin (Gabapentin 100 Mg Cap) 100 mg PO BID [facility] Stop: 12/29/24 08:59 Last Admin: 12/02/24 08:59 Dose: 100 mg Glucagon (Glucagon For Inj 1 Mg Vial) 1 mg SQ UD PRN; Protocol PRN Reason: Hypoglycemia Protocol Stop: 12/29/24 00:32 Glucose (Glucose 40% Gel 15 Gm Tube) 15 - 30 gm PO UD PRN; Protocol PRN Reason: Hypoglycemia Protocol Stop: 12/29/24 00:32 Glucose (Glucose 10 Tab/Tube) 4 - 8 tab PO UD PRN; Protocol PRN Reason: Hypoglycemia Protocol Stop: 12/29/24 00:32 Promethazine HCl (Phenergan) 6.25 mg in 50.25 mls @ 201 mls/hr IV Q6H PRN PRN Reason: Nausea And Vomiting Stop: 12/28/24 23:06 Insulin Aspart (Insulin Aspart Per Unit Charge) 0 units SC ACHS [facility] Stop: 12/29/24 00:32 Last Admin: 12/02/24 09:00 Dose: 2 units Lisinopril (Lisinopril 2.5 Mg Tab) 2.5 mg PO DAILY [facility] Stop: 12/29/24 08:59 Last Admin: 12/02/24 09:00 Dose: 2.5 mg Lubiprostone (Lubiprostone 8 Mcg Cap) 24 mcg PO DAILY [facility] Stop: 12/29/24 08:59 Last Admin: 12/02/24 08:59 Dose: 24 mcg Magnesium Oxide (Magnesium Oxide 400 Mg Tab) 400 mg PO QAM [facility] Stop: 12/31/24 13:14 Last Admin: 12/02/24 08:59 Dose: 400 mg Melatonin (Melatonin 3 Mg Tab) 3 mg PO HS [facility] Stop: 12/28/24 23:04 Last Admin: 12/01/24 20:48 Dose: 3 mg Metoprolol Succinate (Metoprolol Succ 25mg Ext Rel Tab) 12.5 mg PO QAM [facility] Stop: 12/29/24 08:59 Last Admin: 12/02/24 08:59 Dose: 12.5 mg Mirtazapine (Mirtazapine Tab 15 Mg Tab) 15 mg PO HS [facility] Stop: 12/29/24 20:59 Last Admin: 12/01/24 20:48 Dose: 15 mg Miscellaneous (Carbohydrates For Hypoglycemia ) 15 - 30 gm PO UD PRN PRN Reason: Hypoglycemia Protocol Stop: 12/29/24 00:32 Multivitamins (Multivitamin Tab) 1 tab PO DAILY [facility] Stop: 12/29/24 08:59 Last Admin: 12/02/24 08:59 Dose: 1 tab Oxycodone HCl (Oxycodone Hcl Ir 5 Mg Tab (Immediate Release)) 5 mg PO Q4H PRN PRN Reason: Pain Stop: 12/12/24 23:06 Polyethylene Glycol (Polyethylene (Miralax) 17 Gm Pack) 17 gm PO DAILY [facility] Stop: 12/29/24 08:59 Last Admin: 12/02/24 08:54 Dose: Not Given Potassium Chloride (Potassium Chloride Pwd 20 Meq Pack) 40 meq PO BID [facility] Stop: 12/29/24 08:59 Last Admin: 12/02/24 09:00 Dose: 40 meq Senna/Docusate Sodium (Docusate Sodium/Senna 50/8.6mg Tab) 2 tab PO DAILY [facility] Stop: 12/29/24 08:59 Last Admin: 12/02/24 08:53 Dose: Not Given
--- NOTE | 2024-12-02 11:33 | Hospitalist Progress Note ---
Date of Service December 02, 2024 Assessment & Plan (1) Acute on chronic systolic HF (heart failure): (2) Ischemic cardiomyopathy: (3) CAD (coronary artery disease): (4) DMII (diabetes mellitus, type 2): (5) Lower extremity cellulitis: Plan Patient 79-year-old gentleman presented with acute on chronic systolic heart failure with reduced ejection fraction in the setting of ischemic cardiomyopathy. Reviewed cardiology recommendations continue IV diuresis another 24 hours Suspect patient's cellulitis is more from edema than a true infection. Currently on doxycycline. Will would only do a very short course of antibiotic. Encourage activity Communication with case management to help coordinate return to [facility] next 24 to 48 hours. Continue to monitor glucose with insulin coverage Admission and Anticipated Discharge Date Admission Date: November 28, 2024 Subjective Patient states he is doing better, breathing easier. States he has walked the halls. Physical Exam Physical Exam: Constitutional: Alert, no acute distress, nontoxic HEENT: Mucous membranes moist. Lungs: Decreased breath sounds, rales at bases CV: S1-S2, regular Abdomen: Soft, nontender, nondistended Extremities: Edema bilateral lower extremity mid tibia Neuro: No focal deficits Psych: Cooperative, normal mood Results & Data Results & Data Vital Signs (Past 12 Hours) Vital Signs Temp Pulse Pulse Resp BP Pulse Ox O2 Del Method 12/02/24 09:00 Room Air 12/02/24 08:00 36.6 C 79 20 148/77 H 96 Room Air 12/02/24 07:00 78 12/02/24 03:55 36.4 C L 77 18 159/82 H 95 Room Air Diagnostic Findings Reviewed imaging, laboratory and diagnostic studies. Pertinent findings as below. Electrolytes stable Creatinine 0.75
[2024-12-03 02:37] VITALS: RESP 18
[2024-12-03 06:59] LABS: Calcium 8.8 mg/dl (8.6-10.3); Potassium 4.2 mmol/L (3.5-5.1)
[2024-12-03 07:04] LABS: BUN Creatinine Ratio 36.2 (10-20); Creatinine Clr Calc Pharmacy 93.7 ml/min
[2024-12-03 08:09] VITALS: TEMP 97.7; O2SAT 95
--- NOTE | 2024-12-03 10:20 | Discharge Summary ---
Discharge Summary Date of Service December 03, 2024 Principal Dx & Hospital Course #1 = Principal Diagnosis (1) Acute on chronic systolic HF (heart failure): (2) Ischemic cardiomyopathy: (3) CAD (coronary artery disease): (4) DMII (diabetes mellitus, type 2): (5) Lower extremity cellulitis: Plan Patient is an 79-year-old gentleman with known ischemic cardiomyopathy and reduced ejection fraction presented to the emergency department with increasing lower extremity swelling and a dry cough. Workup and evaluation in the emergency department was consistent with decompensated heart failure. Patient was admitted to the monitored setting. He was given IV diuresis. Cardiology consultation was obtained. They recommended continuing with IV diuresis. Echocardiogram was updated. Ejection fraction remains at 25 to 29% as well as diastolic dysfunction. Patient's electrolytes and renal function were monitored and remained stable. Electrolytes were replaced as needed. Patient continues to respond well to diuresis and was diuresed 23 kg. On admission there was some question whether he had a cellulitis of the lower extremity. He was started on doxycycline. As he was diuresed this redness resolved and the redness of the lower extremity was not due to cellulitis but more due to erythema from his significant edema. Will not need any additional antibiotics at the time of discharge. On the day of discharge he is feeling well. Eating well. His vital signs are stable. He will be transition to oral diuretics and return back to [place] for ongoing care. Notes For Next Care Provider Recommend daily weights. May need additional diuretic if weight increases 2 to 3 pounds in 1 day or 5 pounds in 1 week. Low-salt fluid restricted diet of 1800 cc/day Recommend checking BMP and magnesium levels in 7 to 10 days Medication Changes From Visit Lasix increased to 60 mg 2 times daily Potassium and magnesium supplementation Admission HPI Per Admitting Provider History obtained from patient and records. Medical history significant for chronic systolic heart failure secondary to ischemic cardiomyopathy (EF 25%, TTE 2024), CAD status post recent stent ([facility], 2024), PSVT/PAF, PVD, CVA, hypertension, hyperlipidemia, DM2 on oral medications, BPH, right renal mass, right adrenal incidentaloma as per records, chronic anemia (baseline hemoglobin 10-11), chronic constipation, mood disorder, past tobacco abuse. Recent [facility] confinement from October 17 to October 31, 2024 for multivessel CAD. Patient transferred to [facility] from [facility] for further management following cardiac catheterization findings at latter hospital which revealed 99% mid LAD stenosis, RCA chronic total occlusion, and 85% stenosis of OM branch of circumflex. TTE showed severely reduced EF of 20% with regional wall abnormalities consistent with ischemic cardiomyopathy. Patient deemed to be a poor surgical candidate for CABG due to frailty as per note. Cardiac MRI confirmed EF of 12%, and significant scar located in the anterior, anteroseptal, and apical keating with no evidence of LV thrombus. Potential benefit from revascularization with note of some viable myocardium. Patient underwent PCI with ALISSA placements to OM 2 and LAD after rotational atherectomy. RCA [employer] attempt aborted due to periprocedural bradycardia and hypotension requiring temporary vasopressor support. Patient subsequently discharged to local [facility]. Few days ago, patient noted worsening bilateral leg swelling. Patient not sure about weight gain. Denies chest pain, SOB. No fever, no chills. Usual dry cough symptoms since discharge to [facility]. No improvement with outpatient diuretic Rx. Patient sent to ER for evaluation. IV Lasix administered at the ER. 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 Lungs: Decreased breath sounds, no wheezes CV: S1-S2, regular Abdomen: Soft, nontender, nondistended Extremities: Significantly decreased edema in lower extremity, skin is loose and wrinkled in the lower extremity, some trace ankle edema Neuro: No focal deficits, some generalized weakness, at baseline Psych: Cooperative, normal mood Updated Medication List Medication Instructions Recorded Confirmed Type acetaminophen 325 mg tablet 650 mg PO Q4 PRN Fever Or Pain 09/12/22 11/28/24 History (Tylenol) gabapentin 100 mg capsule 100 mg PO BID 09/12/22 11/28/24 History metoprolol succinate 25 mg 12.5 mg (1/2 x 25 mg) PO QAM #15 09/14/22 11/28/24 Rx tablet,extended release 24 hr tabs alpha lipoic acid 300 mg capsule 600 mg PO DAILY 01/17/23 11/28/24 History mirtazapine 15 mg tablet 15 mg PO HS 01/17/23 11/28/24 History finasteride 5 mg tablet 5 mg PO DAILY #90 tabs 05/10/23 11/28/24 Rx ammonium lactate 12 % topical cream 1 applic topical DAILY 11/28/24 11/28/24 History aspirin 81 mg chewable tablet 81 mg PO DAILY 11/28/24 11/28/24 History (Aspirin Childrens) atorvastatin 40 mg tablet 40 mg PO DAILY 11/28/24 11/28/24 History clopidogrel 75 mg tablet 75 mg PO DAILY 11/28/24 11/28/24 History clotrimazole 1 % topical cream 1 applic topical BID 11/28/24 11/28/24 History cyanocobalamin (vitamin B-12) 1,000 mcg PO DAILY 11/28/24 11/28/24 History 1,000 mcg tablet (Vitamin B-12) diclofenac sodium 1 % topical gel 2 g topical QID PRN Pain 11/28/24 11/28/24 History fluticasone propionate 50 2 spray intranasal DAILY 11/28/24 11/28/24 History mcg/actuation nasal spray,suspension furosemide 40 mg tablet 40 mg PO UD 11/28/24 11/28/24 History lisinopril 2.5 mg tablet 2.5 mg PO DAILY 11/28/24 11/28/24 History lubiprostone 24 mcg capsule 24 mcg PO DAILY 11/28/24 11/28/24 History melatonin 5 mg capsule 5 mg PO HS 11/28/24 11/28/24 History multivitamin 1 tab PO DAILY 11/28/24 11/28/24 History nitroglycerin 0.4 mg sublingual 0.4 mg sublingual .EVERY 5 MINUTES 11/28/24 11/28/24 History tablet PRN Chest Pain polyethylene glycol 3350 17 17 g PO DAILY PRN Constipation 11/28/24 11/28/24 History gram/dose oral powder polyethylene glycol 3350 17 17 g PO DAILY Constipation 11/28/24 11/28/24 History gram/dose oral powder (Miralax) sennosides 8.6 mg tablet (senna) 15 mg PO DAILY PRN NO BM IN 2 DAYS 11/28/24 11/28/24 History sennosides 8.6 mg-docusate sodium 2 tab-cap PO DAILY 11/28/24 11/28/24 History 50 mg tablet (Senna Plus) furosemide 40 mg tablet 60 mg (1.5 x 40 mg) PO BID #90 tabs 12/03/24 Rx magnesium oxide 400 mg PO DAILY #30 tabs 12/03/24 Rx potassium chloride 20 mEq 20 meq PO BID #60 tabs 12/03/24 Rx tablet,extended release(part/cryst) Hospital Stay Data Consultations 11/28/24 22:09 ED Decision to Admit Stat 11/28/24 23:43 Consult Cardiology Routine 11/29/24 00:33 Consult Cardiology Routine Diagnostic Imagining Performed 11/28/24 21:05 US venous doppler LE Stat Reviewed imaging, laboratory and diagnostic studies. Pertinent findings as below. 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 Echocardiogram revealed ejection fraction 25 to 29%, significant wall motion abnormalities at all segments, grade 2 diastolic dysfunction, no significant change from echocardiogram done approximately 1 month ago Pending Results Patient Have Any Pending Studies at Discharge: No Discharge Instructions Given to Patient (Per Discharging Provider) Call 911 and go to the Emergency Room if: * You have tightness or pain in your chest that does not go away with rest or Nitroglycerin * You are very short of breath even with rest Call your doctor if any of the following symptoms or problems start or get worse: * Shortness of breath or difficulty breathing * Wake up at night short of breath * Chest pain * Cough * Swelling of your hands, fee, or legs * More fatigued or tired with your normal activity * Palpitations - sudden fast heart beats WEIGHT * Weigh yourself every morning after using the bathroom. * Use the same scale. * Wear the same amount of clothing. * Write your weight down on your chart. * Call your doctor if you gain more than 2-3 pounds in 1-2 days. MEDICATIONS * Use this discharge instruction sheet for instructions. * Take your medications at the time your doctor ordered. * Do not skip a dose of your medicines. * If you miss a dose of medicine, take as soon as possible, but DO NOT DOUBLE A DOSE. * Read your medicine information when you get home. * Know all of the side effects of your medicine. * Call your doctor's office if you have any side effects. * Be sure all of your doctors know what medicine and herbs you take (including cold, flu, and herbal medicine). * Pain Medicine: If you do not get relief from your pain, please call your doctor for help. Take the following with you to your follow-up doctor appointments: * Weight Chart * Medication List * List of questions Do not drink excessive alcohol, beer or wine. A good weight for the patient is 77.6 kg Total Time Total Time Spent Total Time Spent (In Minutes): 39
[2024-12-03] MEDS: FUROSEMIDE 40 MG/4 ML VIAL IV ONE (10:44)
[2024-12-03 11:32] VITALS: BP 106/65
[2024-12-03 16:55] VITALS: PULSE 79
== END 2024-12-03 18:03 | disposition home or self-care (01) | DRG 291 ==
LOC: ED 20:53 → SUATTDRO 22:25 → 2S 22:25 → 2N 12-02 18:42